=== PATIENT | female | born 1980 | race Caucasian/White ===

== ENCOUNTER 2018-07-17 20:40 | Emergency (ER) | payer OTHER ==
[~2018-07-17] VITALS: Ht 160 cm; Wt 90.7 kg
[~2018-07-17 20:40] MED LIST: ALBU17AE23 IH; ALPR.25T PO; ALPR.5T; ALPR.5T PO; CEPH500C; CITA40TA19; CITA40TA19 PO; DOXY100T61 PO; DULO60CA6; PRD20T PO; SIMV40TA2 PO; THIO2CAP; THIO5CAP; TRAZ50CO; TRAZADONE PO; ZPR80C; [UNRECOGNIZED DRUG - CODE] PO
--- OUTSIDE RECORDS SUMMARY | 2018-07-17 20:46 | XMS REPORT ---
Author Author [facility] Medical Staff Organization [place] [employer] [facility] Address [address] [place], [place] [address] Phone [phone] Care Team Providers Care Consulting Sales Manager Name Role Phone FARHAD SETHI MD PP [phone] Summary purpose TRANSITION OF CARE AUTO GENERATION Chief Complaint and Reason for Visit No authorized Reason for Visit (Admitting Diagnosis) is available for this visit. Problem list No authorized problems tracked for continuity of care are available for this visit. Encounters No authorized problems tracked for encounter diagnoses are available for this visit. Medications No home medications recorded for this patient visit Allergies, adverse reactions, alerts Allergen Category Ingredient Status Reaction Severity Onset Haldol Drug Allergy Haldol Confirmed or Verified Haldol Drug Allergy haloperidol Confirmed or Verified latex Environmental Allergy LATEX Confirmed or Verified latex Drug Allergy latex Confirmed or Verified Penicillins Drug Allergy Penicillins Confirmed or Verified Immunizations No immunizations recorded for this patient visit Relevant diagnostic tests and/or laboratory data No authorized results are available for this patient visit History of procedures No procedures recorded for this patient visit. Functional status Functional Status Finding Observation Time Abdomen Appearance obese 06-00-639240:40 Abdomen non-tender :40 Bowel Sounds present :40 Urination normal 74-68-675154:40 Quality sym/unlabored :40 Airway natural :40 Oxygen no :45 Temp >100.4 no :40 Temp <96.8 no :40 Chills with rigors no :40 HR > 90bpm no :40 Respirations > 20 no :40 Systolic <90 no :40 headache stiff neck no :40 Nursing Note D/C instructions to pt. Understanding verbalized. 04-91-804301 :45 Vital signs Type Value Date Respiration Rate 16breaths per minute :45 Pulse 85beats per minute :45 Oxygen Saturation 100% :45 BP Systolic 130mmHg :45 BP Diastolic 68mmHg :45 Temperature 97.9F :45 Social history Type Value Smoking Status CURRENT EVERY DAY SMOKER Treatment Plan No treatment plan text is available for this visit. Hospital discharge instructions Dismissal Condition good Disposition on DC home DC Inst/Educ Give yes Flu Vac no
--- OUTSIDE RECORDS SUMMARY | 2018-07-17 20:46 | XMS REPORT ---
Author Author [facility] Medical Staff Organization [facility] Address [address] [place], [place] [address] Phone [phone] Care Team Providers Care Core Placer Name Role Phone FARHAD SETHI MD PP [phone] Summary purpose TRANSITION OF CARE AUTO GENERATION Chief Complaint and Reason for Visit No authorized Reason for Visit (Admitting Diagnosis) is available for this visit. Problem list No authorized problems tracked for continuity of care are available for this visit. Encounters No authorized problems tracked for encounter diagnoses are available for this visit. Medications No medications recorded for this patient visit Allergies, [...] visit Relevant diagnostic tests and/or laboratory data RESULTS Routine Urinalysis :20:00 Result Normal Range Units Color YELLOW Clarity Clear Specific [place] 1.003 Refractometer Result pH 6.5 4.5-8.0 Glucose NEGATIVE Bilirubin NEGATIVE Ketones NEGATIVE Protein NEGATIVE Urobilinogen 0.2 0-0.2 E.U./dL Nitrites NEGATIVE Blood NEGATIVE Leukocytes NEGATIVE WBCs 0-5 RBCs No RBC's Seen. Squamous Epithelial 1+ Bacteria 1+ Body Fluid :20:00 Result Normal Range Units pH 6.5 4.5-8.0 History of procedures No procedures recorded for this patient visit. Functional status Functional Status Finding Observation Time Abdomen Appearance obese 84-72-814176:20 Abdomen soft 00-59-816200:20 Bowel Sounds present 53-97-767721:20 Henson no 64-04-998049:20 Urination normal 25-60-396714:20 Quality sym/unlabored 82-67-347909:20 Cough absent 68-57-382143:20 Secretions no :20 Breath Sounds RUL clear :20 Breath Sounds RML clear :20 Breath Sounds RLL clear :20 Breath Sounds DAVIDA clear :20 Breath Sounds LLL clear :20 Airway natural :20 Chest Tube no :20 Oxygen no :30 Temp >100.4 no :20 Temp <96.8 no :20 Chills with rigors no : HR > 90bpm yes :20 Respirations > 20 no : Systolic <90 no : headache stiff neck no :20 Nursing Note DC inst given to pt with Rx for Minocycline. Verb understanding and pt amb off unit in stable condition. : Vital signs Type Value Date Respiration Rate 18breaths per minute : Pulse 96beats per minute :30 Oxygen Saturation 99% :30 BP Systolic 124mmHg :30 BP Diastolic 75mmHg :30 Temperature 98.1F :30 Social history No Social History or smoking status observations were recorded for this visit. ( Unknown if ever smoked.) Treatment Plan No treatment plan text is available for this visit. Hospital discharge instructions Dismissal Condition good Disposition on DC home DC Inst/Educ Give yes Med/Side Effects Rev yes PNE Vac None Flu Vac None Tetanus Vac Current
--- OUTSIDE RECORDS SUMMARY | 2018-07-17 20:46 | XMS REPORT ---
Author [facility] Medical [facility] Organization [facility] Address [address] [place], [place] [address] Phone [phone] Care Team Providers Care Head Char Filter Tank Tender Name Role Phone FARHAD SETHI MD PP [phone] Summary purpose TRANSITION OF CARE AUTO GENERATION [...] Relevant diagnostic tests and/or laboratory data RESULTS Chemistry 51-89-433464:47:00 Result Normal Range Units Sodium 141 134-145 mEq/l Potassium 3.9 3.5-5.1 mEq/l Chloride 103 98-107 mEq/l CO2 27.7 22-28 mEq/l Glucose 89 70-105 mg/dl BUN 7 7-18 mg/dl Creatinine 0.79 0.6-1.0 mg/dl Calcium 8.9 8.4-10.2 mg/dl TP - Total Protein 7.3 6.0-8.3 g/dl Albumin 3.8 3.5-5 g/dl Bilirubin - Total 0.4 0.1-1.0 mg/dl AST 13 10-42 IU/L ALT 23 12-65 IU/L ALP 63 25-72 IU/L Osmolality L 278.7 280-300 mOsm/L Albumin/Globulin Ratio 1.1 0-8 Anion GAP 10.3 8-16 BUN/Creatinine Ratio L 8.9 10-20 Estimated GFR 84 >=60 mL/min/1.7 C-Reactive Protein < 0.2 0-1 mg/dl Hematology :47:00 Result Normal Range Units WBC H 11.0 4.8-10.8 103/uL RBC 5.2 4.2-5.4 106/uL HGB 15.6 12.0-16.0 g/dl HCT 45.3 36.9-47.0 % MCV 87.5 81-99 FL MCH 30.1 27-31 pg MCHC 34.4 33-37 g/dl RDW 13.3 11.5-15.5 % PLT 334 130-400 103/uL MPV 9.0 7.3-10.4 FL Neutro % 52.5 40-70 % Lymph % 39.3 20-40 % [place] % 6.6 0-10.0 % Eos % 1.2 0-7.0 % Baso % 0.4 0-2 % Neutro # 5.8 1.5-7.5 103/uL Lymph # H 4.3 0.9-4.0 103/uL [place] # 0.7 0-0.8 103/uL Eos # 0.1 0-0.6 103/uL Baso # 0.0 0-0.1 103/uL Radiology Results :47:00 Result Normal Range Units MPV 9.0 7.3-10.4 FL History of procedures No procedures recorded for this patient visit. Functional status Functional Status Finding Observation Time Diet regular 78-82-316304:15 Abdomen Appearance obese 77-20-565538:15 Abdomen non-tender 75-80-031169:15 Bowel Sounds present 90-29-476354:15 Henson no 63-83-852998:15 Urination normal 38-92-324093:15 Quality sym/unlabored 26-77-285191:15 Cough absent 16-47-791946:15 Breath Sounds RUL clear 81-00-346810:15 Breath Sounds RML clear 31-13-596337:15 Breath Sounds RLL clear 11-96-830094:15 Breath Sounds DAVIDA clear 07-72-461318:15 Breath Sounds LLL clear 92-20-394863:15 Airway natural 00-92-413986:15 Chest Tube no 19-29-996015:15 Oxygen yes 81-31-132539:00 Nursing Note Ready for home. No vomiting, no distress, no changes in condition : Vital signs Type Value Date Respiration Rate 18breaths per minute : Pulse 88beats per minute : Oxygen Saturation 98% : BP Systolic 122mmHg : BP Diastolic 68mmHg : Temperature 97.9F : Weight 205LB : Social history Type Value Smoking Status CURRENT EVERY DAY SMOKER Treatment Plan No treatment plan text is available for this visit. Hospital discharge instructions Dismissal Condition good Disposition on DC home DC Inst/Educ Give yes PNE Vac None Flu Vac None Tetanus Vac Current
--- OUTSIDE RECORDS SUMMARY | 2018-07-17 20:46 | XMS REPORT ---
Author Author [facility] Medical Staff Organization [facility] [employer] [facility] Address [address] [place], [place] [address] Phone [phone] Care Team Providers Care Crew Person Name Role Phone FARHAD SETHI MD PP [phone] Summary purpose TRANSITION OF CARE AUTO GENERATION Chief Complaint and Reason for Visit Admit Diagnosis 1 PANIC DIS W/O AGORAPHOB Problem list No authorized problems tracked for [...] for this patient visit History of procedures Procedure Code Code Type Description Date Performed Performing Physician A9270 CPT-4 NON-COVERED ITEM OR SERVICE 09-23-2014 JOHN NORMAN 00960 CPT-4 EMERGENCY DEPT VISIT 09-23-2014 JOHN NORMAN 72105 CPT-4 EMERGENCY DEPT VISIT 09-23-2014 JOHN NORMAN Functional status Functional Status Finding Observation Time Abdomen Appearance obese :00 Bowel Sounds present :00 Henson no :00 Urination normal :00 Quality sym/unlabored :00 Cough absent : Secretions no :00 Breath Sounds RUL clear :00 Breath Sounds RML clear :00 Breath Sounds RLL clear :00 Breath Sounds DAVIDA clear :00 Breath Sounds LLL clear :00 Airway natural :00 Chest Tube no :00 Oxygen no :50 Temp >100.4 no : Temp <96.8 no :00 Chills with rigors no : HR > 90bpm no :00 Respirations > 20 no : Systolic <90 no : headache stiff neck no : Nursing Note Pt was given xanx .5 mg po and Pt was also sent home with .5 mg po and was sent home with .5 at this time :50 Vital signs Type Value Date Respiration Rate 18breaths per minute :50 Pulse 78beats per minute :50 Oxygen Saturation 99% :50 BP Systolic 128mmHg :50 BP Diastolic 70mmHg :50 Temperature 98.8F :40 Height 63inches :40 Weight 204LB 00-46-169936:40 Social history Type Value Smoking Status CURRENT EVERY DAY SMOKER Treatment Plan No treatment plan text is available for this visit. Hospital discharge instructions Dismissal Condition good Disposition on DC home DC Inst/Educ Give yes Med/Side Effects Rev yes Comment: xanax PNE Vac None Flu Vac None Tetanus Vac Current
--- OUTSIDE RECORDS SUMMARY | 2018-07-17 20:47 | XMS REPORT ---
Author Author [email or web address] Medical Staff Organization [place] [employer] [facility] Address [address] [place], [place] [address] Phone [phone] Care Team Providers Care Adventure Therapist Name Role Phone FARHAD VALDEZ MD PP [phone] Summary purpose TRANSITION OF CARE AUTO GENERATION Chief Complaint and Reason for Visit Admit Diagnosis 1 SWELLING OF LIMB Problem list No authorized problems tracked for [...] Relevant diagnostic tests and/or laboratory data RESULTS Radiology Results 10-23-730368:07:00 DUP NEO UNILATERAL PACs Image DATE OF EXAM: 2014 [id number] VENOUS DUPLEX-UNILATERAL : RADIOLOGY REPORT DATE OF SERVICE:07/07/14 HISTORY:Right upper extremity pain and swelling. RIGHT UPPER EXTREMITY VENOUS DOPPLER 1424 HOURS The upper extremity veins were evaluated with high-resolution real time imaging, pulsed and color flow Doppler. Normal spontaneous phasic flow is evident in the right internal jugular, subclavian, axillary, brachial, radial and ulnar veins. All venous segments are fully compressible. No thrombi are noted. There is normal augmentation of flow with distal compression. IMPRESSION:Normal right upper extremity venous Doppler. Richi Dixon MD MWDg/pb07/07/2014 17:40:00 / 07/07/2014 21:48:35 cc:Dr. Farhad Valdez This document has been electronically Signed by: On: DATE OF EXAM: 2014 [id number] VENOUS DUPLEX-UNILATERAL : RADIOLOGY REPORT DATE OF SERVICE:07/07/14 HISTORY:Right upper extremity pain and swelling. RIGHT UPPER EXTREMITY VENOUS DOPPLER 1424 HOURS The upper extremity veins were evaluated with high-resolution real time imaging, pulsed and color flow Doppler. Normal spontaneous phasic flow is evident in the right internal jugular, subclavian, axillary, brachial, radial and ulnar veins. All venous segments are fully compressible. No thrombi are noted. There is normal augmentation of flow with distal compression. IMPRESSION:Normal right upper extremity venous Doppler. MD LEONARDO Logan/jayce07/07/2014 17:40:00 / 07/07/2014 21:48:35 cc:Dr. Farhad Valdez This document has been electronically Signed by: RICHI DIXON On: 2014 12:07P Result Amended on 2014-07-08 at 12:07:29. Previous status was NE. History of procedures Procedure Code Code Type Description Date Performed Performing Physician 46829 CPT-4 EXTREMITY STUDY 07-07-2014 LY ESCALONA A9270 CPT-4 NON-COVERED ITEM OR SERVICE 07-07-2014 LY ESCALONA 82506 CPT-4 EMERGENCY DEPT VISIT 07-07-2014 LY ESCALONA 72810 CPT-4 EMERGENCY DEPT VISIT 07-07-2014 LY ESCALONA Functional status Functional Status Finding Observation Time Abdomen Appearance obese 91-49-679553:40 Abdomen non-tender 20-49-347632:40 Bowel Sounds present 31-09-693923:40 Urination normal 94-34-254679:40 Quality sym/unlabored 95-50-734078:40 Airway natural 01-42-517960:40 Oxygen no :45 Temp >100.4 no :40 Temp <96.8 no :40 Chills with rigors no :40 HR > 90bpm no 21-00-535688:40 Respirations > 20 no :40 Systolic <90 no :40 headache stiff neck no :40 Nursing Note D/C instructions to pt. Understanding verbalized. :45 Vital signs Type Value Date Respiration Rate 16breaths per minute 54-43-259501:45 Pulse 85beats per minute :45 Oxygen Saturation 100% 53-68-535580:45 BP Systolic 130mmHg :45 BP Diastolic 68mmHg :45 Temperature 97.9F :45 Social history Type Value Smoking Status CURRENT EVERY DAY SMOKER Treatment Plan No treatment plan text is available for this visit. Hospital discharge instructions Dismissal Condition good Disposition on DC home DC Inst/Educ Give yes Flu Vac no
--- OUTSIDE RECORDS SUMMARY | 2018-07-17 20:47 | XMS REPORT ---
Author Author [facility] Medical Staff Organization [facility] Address [address] [place], [place] [address] Phone [phone] Care Team Providers Care State Historical Society Director Name Role Phone FARHAD SETHI MD PP [phone] Summary purpose TRANSITION OF CARE AUTO GENERATION Chief Complaint and Reason for Visit Admit Diagnosis 1 MYALGIA AND MYOSITIS NOS Problem list No authorized problems tracked for [...] Code Type Description Date Performed Performing Physician J1885 CPT-4 TORADOL SYR 30MG/ML 07-21-2014 JOHN ROSADO 95207 CPT-4 EMERGENCY DEPT VISIT 07-21-2014 JOHN ALONZO 83223 CPT-4 EMERGENCY DEPT VISIT 07-21-2014 JOHN ROSADO 57470 CPT-4 THER/PROPH/DIAG INJ, SC/IM 07-21-2014 JOHN ROSADO Functional status Functional Status Finding Observation Time Abdomen Appearance obese 97-54-479333:30 Abdomen non-tender 20-35-312865:30 Bowel Sounds present 67-78-600261:30 Henson no 96-16-488776:30 Urination normal 19-22-522924:30 Quality sym/unlabored 19-89-765579:30 Airway natural 02-19-581299:30 Chest Tube no 93-01-350058:30 Oxygen no 19-35-643008:35 Temp >100.4 no 84-68-051666:30 Temp <96.8 no : Chills with rigors no : HR > 90bpm no : Respirations > 20 no : Systolic <90 no : headache stiff neck no :30 Nursing Note Patient given instructions for home. Patient voiced understanding. Ambulated from unit with friend at side. :35 Vital signs Type Value Date Respiration Rate 20breaths per minute :35 Pulse 91beats per minute :35 Oxygen Saturation 96% :35 BP Systolic 134mmHg :35 BP Diastolic 84mmHg :35 Temperature 98.0F :35 Social history Type Value Smoking Status CURRENT EVERY DAY SMOKER Treatment Plan No treatment plan text is available for this visit. Hospital discharge instructions Dismissal Condition good Disposition on DC home DC Inst/Educ Give yes Med/Side Effects Rev yes Flu Vac no
--- OUTSIDE RECORDS SUMMARY | 2018-07-17 20:47 | XMS REPORT ---
Author Author [facility] [employer] [facility] Medical Staff Organization [facility] Address [address] [place], [place] [address] Phone [phone] Care Team Providers Care Vegetable Farmer Name Role Phone FARHAD SETHI MD PP [phone] Summary purpose TRANSITION OF CARE AUTO GENERATION [...] present :00 Henson no :00 Urination normal : Quality sym/unlabored : Cough absent :00 Secretions no :00 Breath Sounds RUL clear :00 Breath Sounds RML clear :00 Breath Sounds RLL clear :00 Breath Sounds DAVIDA clear :00 Breath Sounds LLL clear :00 Airway natural :00 Chest Tube no :00 Oxygen no :50 Temp >100.4 no :00 Temp <96.8 no :00 Chills with rigors no :00 HR > 90bpm no :00 Respirations > 20 no : Systolic <90 no :00 headache stiff neck no :00 Nursing Note Pt was given xanx .5 [...] 98.8F :40 Height 63inches :40 Weight 204LB 31-05-618068:40 Social history Type Value Smoking Status CURRENT EVERY DAY SMOKER Treatment Plan No treatment plan text is available for this visit. Hospital discharge instructions Dismissal Condition good Disposition on DC home DC Inst/Educ Give yes Med/Side Effects Rev yes Comment: xanax PNE Vac None Flu Vac None Tetanus Vac Current
--- OUTSIDE RECORDS SUMMARY | 2018-07-17 20:47 | XMS REPORT ---
Author [facility] [employer] [facility] Medical Staff Organization [facility] [email or web address] [facility] Address [address] [place], [place] [address] Phone [phone] Care Team Providers Care School Admissions Representative Name Role Phone FARHAD SETHI MD PP [phone] Summary purpose TRANSITION OF CARE AUTO GENERATION Chief Complaint and Reason for Visit Admit Diagnosis 1 ABDOMINAL PAIN RT LW PARKER Problem list No authorized problems tracked for [...] tests and/or laboratory data RESULTS Routine Urinalysis 99-53-060939:20:00 Result Normal Range Units Color YELLOW Clarity Clear Specific [place] 1.003 Refractometer Result pH 6.5 4.5-8.0 Glucose NEGATIVE Bilirubin NEGATIVE Ketones NEGATIVE Protein NEGATIVE Urobilinogen 0.2 0-0.2 E.U./dL Nitrites NEGATIVE Blood NEGATIVE Leukocytes NEGATIVE WBCs 0-5 RBCs No RBC's Seen. Squamous Epithelial 1+ Bacteria 1+ Body Fluid 78-43-082345:20:00 Result Normal Range Units pH 6.5 4.5-8.0 History of procedures Procedure Code Code Type Description Date Performed Performing Physician 51428 CPT-4 URINALYSIS, AUTO W/SCOPE 09-06-2014 SAUL EPSTEIN 17368 CPT-4 URINE TEST 09-06-2014 SAUL EPSTEIN 51903 CPT-4 EMERGENCY DEPT VISIT 09-06-2014 SAUL EPSTEIN 62794 CPT-4 EMERGENCY DEPT VISIT 09-06-2014 SAUL EPSTEIN Functional status Functional Status Finding Observation Time Abdomen Appearance obese 27-50-624817:20 Abdomen soft :20 Bowel Sounds present :20 Henson no :20 Urination normal :20 Quality sym/unlabored :20 Cough absent :20 Secretions no :20 Breath Sounds RUL clear :20 Breath Sounds RML clear :20 Breath Sounds RLL clear :20 Breath Sounds DAVIDA clear :20 Breath Sounds LLL clear 15-92-085055:20 Airway natural :20 Chest Tube no :20 Oxygen no :30 Temp >100.4 no :20 Temp <96.8 no :20 Chills with rigors no :20 HR > 90bpm yes :20 Respirations > 20 no :20 Systolic <90 no :20 headache stiff neck no :20 Nursing Note DC inst given to pt with Rx for Minocycline. Verb understanding and pt amb off unit in stable condition. : Vital signs Type Value Date Respiration Rate 18breaths per minute :30 Pulse 96beats per minute :30 Oxygen Saturation 99% :30 BP Systolic 124mmHg :30 BP Diastolic 75mmHg 17-63-684704:30 Temperature 98.1F :30 Social history No Social [...]
--- OUTSIDE RECORDS SUMMARY | 2018-07-17 20:47 | XMS REPORT ---
Author Author [facility] Medical Staff Organization [facility] Address [address] [place], [place] [address] Phone [phone] Care Team Providers Care Digital Tech Name Role Phone FARHAD SETHI MD PP [phone] Summary purpose TRANSITION OF CARE AUTO GENERATION Chief Complaint and Reason for Visit No authorized Reason for Visit (Admitting Diagnosis) is available for this visit. Problem list No authorized problems tracked for continuity of care are available for this visit. Encounters No authorized problems tracked for encounter diagnoses are available for this visit. Medications Home Medications Medication Directions Started Status Source Celexa 40 mg tablet 2 tablet Oral At Bed Time Current Patient recall trazodone 100 mg tablet 2 tablet Oral At Bed Time Current Patient recall Zocor 40 mg tablet 1 tablet Oral At Bed Time Current Patient recall Lasix 20 mg tablet 1 tablet oral As Needed Current Patient medication list K-Dur 20 mEq tablet,extended release 1 tablet oral As Needed Current Patient medication list melatonin 5 mg tablet 1 tablet oral 1 Daily Current Patient medication list Flonase 50 mcg/actuation nasal spray,suspension 2 puff nasl 1 Daily Current Patient recall tramadol 50 mg tablet 1 tablet oral PRN Every 6 Hours Current Patient medication list magnesium citrate oral 2 tablet oral At Bed Time 250mg Current Patient medication list Super B Complex tablet 1 tablet oral 1 Daily Current Medication bottle label Allergies, adverse reactions, alerts Allergen Category Ingredient [...] Functional status Functional Status Finding Observation Time Oxygen no 44-68-245771:14 Nursing Note pt to er room 7, triage complete, report to dr galvan 07-21-2014 20:14 Vital signs Type Value Date Respiration Rate 20breaths per minute :14 Pulse 100beats per minute :14 Oxygen Saturation 94% :14 BP Systolic 159mmHg :14 BP Diastolic 86mmHg :14 Temperature 98.2F :14 Social history Type Value Smoking Status CURRENT EVERY DAY SMOKER Treatment Plan No treatment plan text is available for this visit. Hospital discharge instructions Flu Vac no
--- OUTSIDE RECORDS SUMMARY | 2018-07-17 20:48 | XMS REPORT | Clinical Summary ---
Author Author Admin, ARIAN Organization [facility] Address Unknown Phone Unavailable Allergies, Adverse Reactions, Alerts Allergy Name Reaction Description Start Date Severity Status Provider LATEX GLOVES Critical Active Ian Valdez MD HALDOL Critical Active Ian Valdez MD PENICILLIN Critical Active Ian Valdez MD Conditions or Problems Problem Name Problem Code Onset Date Status Entry Date Provider Comment Standard Description Annotate SINUSITIS 473.9 Resolved Ian Valdez MD Unspecified sinusitis (chronic) SCABIES 133.0 Resolved Ian Valdez MD Scabies MEMORY LOSS 780.93 Resolved Ian Valdez MD Memory loss FAMILY HISTORY OF ALCOHOLISM V61.41 Resolved Ian Valdez MD Alcoholism in family FH DIABETES V18.0 Resolved Ian Valdez MD Family history of diabetes mellitus DIABETES-TYPE 2 250.00 Active Ian Valdez MD Diabetes mellitus without mention of complication, type II or unspecified type, not stated as uncontrolled HYPERLIPIDEMIA 272.4 Active Ian Valdez MD Other and unspecified hyperlipidemia BIPOLAR DISORDER 296.7 Active Ian Valdez MD Bipolar I disorder, most recent episode (or current) unspecified MEMORY LOSS 780.93 Resolved Ian Valdez MD Memory loss ROUTINE HEALTH MAINTENANCE V70.0 Resolved Thom Gilbert MD Routine general medical examination at a health care facility FAMILY HISTORY OF ISCHEMIC HEART DISEASE V17.3 Resolved Ian Valdez MD Family history of ischemic heart disease EUSTACHIAN TUBE DYSFUNCTION 381.81 Resolved Ian Valedz MD Dysfunction of Eustachian tube SINUSITIS 473.9 Resolved Thom Gilbert MD Unspecified sinusitis (chronic) CONTACT DERMATITIS DUE TO POISON CARINE 692.6 Resolved Ian Valdez MD Contact dermatitis and other eczema due to plants [ except food] CONTRACEPTIVE MANAGEMENT V25.09 Inactive Thom Gilbert MD Encounter for other general counseling and advice on contraceptive management EUSTACHIAN TUBE DYSFUNCTION 381.81 Resolved Ian Valdez MD Dysfunction of Eustachian tube TOBACCO ABUSE 305.1 Active Ian Valdez MD Tobacco use disorder ASTHMA NOS W/ACUTE EXACERBATION 493.92 Resolved Thom Gilbert MD Asthma, unspecified with (acute) exacerbation ACUTE BRONCHITIS 466.0 Resolved Ian Valdez MD Acute bronchitis LATERAL EPICONDYLITIS, RIGHT 726.32 Resolved Ian Valdez MD Lateral epicondylitis IRREGULAR MENSES 626.4 Resolved Ian Valdez MD Irregular menstrual cycle ABDOMINAL CRAMPS 789.00 Resolved Ian Valdez MD Abdominal pain, unspecified site BRONCHITIS, ACUTE 466.0 Resolved Ian Valdez MD Acute bronchitis SHOULDER PAIN, RIGHT 719.41 Resolved Ian Valdez MD Pain in joint involving shoulder region PERIPHERAL EDEMA 782.3 Resolved Ian Valdez MD Edema F/U EXAM FOLLOW CMPL TX W/HIGH-RISK MED NEC V67.51 Resolved 2012 Ian Valdez MD Follow-up examination following treatment with high-risk medication, not elsewhere classified LONG-TERM (CURRENT) USE OF OTHER MEDICATIONS V58.69 Active 10/26 Ian Valdez MD Long-term (current) use of other medications ANXIETY 300.00 Active Ian Valdez MD Anxiety state, unspecified KNEE PAIN, RIGHT, CHRONIC 719.46 Inactive Thom Gilbert MD Pain in joint involving lower leg Ankle sprain, left 845.00 Resolved Ian Valdez MD Unspecified site of ankle sprain Peripheral edema 782.3 Resolved Thom Gilbert MD Edema Chronic pain 338.29 Inactive Thom Gilbert MD Other chronic pain Myofascial pain syndrome 729.1 Active Ian Valdez MD Myalgia and myositis, unspecified Polycystic ovarian disease 256.4 Active Ian Valdez MD Polycystic ovaries Unspecified procreative management V26.9 Inactive Thom Gilbert MD Unspecified procreative management Tinea cruris 110.3 Resolved Thom Gilbert MD Dermatophytosis of groin and perianal area FH Stroke V17.1 Active Thom Gilbert MD Family history of stroke (cerebrovascular) Breast mass, right 611.72 Resolved Thom Gilbert MD Lump or mass in breast Wound infection 958.3 Resolved Thom Gilbert MD Posttraumatic wound infection not elsewhere classified Dysphagia 787.20 Resolved Thom Gilbert MD Dysphagia, unspecified Neck pain 723.1 Resolved Thom Gilbert MD Cervicalgia Sinusitis, frontal, acute 461.1 Resolved Thom Gilbert MD Acute frontal sinusitis Breast mass 611.72 Resolved Thom Gilbert MD Lump or mass in breast Influenza like illness 487.1 Resolved Thom Gilbert MD Influenza with other respiratory manifestations Depression, major 296.20 Active Susana Elder Major depressive disorder, single episode, unspecified degree Fibrocystic breast disease 610.1 Active Thom Gilbert MD Diffuse cystic mastopathy Lateral epicondylitis, right 726.32 Active Ian Valdez MD Lateral epicondylitis Fibromyalgia 729.1 Active Ian Valdez MD Myalgia and myositis, unspecified Health screening V70.0 Active Herminia Bear Routine general medical examination at a health care facility SINUSITIS ICD-473.9 Inactive Ian Valdez MD SCABIES ICD-133.0 Inactive Ian Valdez MD 2012 MEMORY LOSS ICD-780.93 Inactive Ian Valdez MD FAMILY HISTORY OF ALCOHOLISM ICD-V61.41 Inactive Ian Valdez MD FH DIABETES ICD-V18.0 Inactive Ian Valdez MD MEMORY LOSS ICD-780.93 Inactive Ian Valdez MD ROUTINE HEALTH MAINTENANCE ICD-V70.0 Inactive Thom Gilbert MD FAMILY HISTORY OF ISCHEMIC HEART DISEASE ICD-V17.3 Inactive Ian Valdez MD EUSTACHIAN TUBE DYSFUNCTION ICD-381.81 Inactive Ian Valdez MD SINUSITIS ICD-473.9 Inactive Thom Gilbert MD CONTACT DERMATITIS DUE TO POISON CARINE ICD-692.6 Inactive Ian Valdez MD CONTRACEPTIVE MANAGEMENT ICD-V25.09 Inactive Thom Gilbert MD EUSTACHIAN TUBE DYSFUNCTION ICD-381.81 Inactive Ian Valdez MD ASTHMA NOS W/ACUTE EXACERBATION ICD-493.92 Inactive Thom Gilbert MD ACUTE BRONCHITIS ICD-466.0 Inactive Ian Valdez MD LATERAL EPICONDYLITIS, RIGHT ICD-726.32 Inactive Ian Valdez MD IRREGULAR MENSES ICD-626.4 Inactive Ian Valdez MD ABDOMINAL CRAMPS ICD-789.00 Inactive Ian Valdez MD BRONCHITIS, ACUTE ICD-466.0 Inactive Ian Valdez MD SHOULDER PAIN, RIGHT ICD-719.41 Inactive Ian Valdez MD PERIPHERAL EDEMA ICD-782.3 Inactive Ian Valdez MD F/U EXAM FOLLOW CMPL TX W/HIGH-RISK MED NEC ICD-V67.51 Inactive Ian Valdez MD KNEE PAIN, RIGHT, CHRONIC ICD-719.46 Inactive Thom Gilbert MD Ankle sprain, left ICD-845.00 Inactive Ian Valdez MD Peripheral edema ICD-782.3 Inactive Thom Gilbert MD Chronic pain ICD-338.29 Inactive Thom Gilbert MD Unspecified procreative management ICD-V26.9 Inactive Thom Gilbert MD Tinea cruris ICD-110.3 Inactive Thom Gilbert MD Breast mass, right ICD-611.72 Inactive Thom Gilbert MD Wound infection ICD-958.3 Inactive Thom Gilbert MD Dysphagia ICD-787.20 Inactive Thom Gilbert MD Neck pain ICD-723.1 Inactive Thom Gilbert MD Sinusitis, frontal, acute ICD-461.1 Inactive Thom Gilbert MD Breast mass ICD-611.72 Inactive Thom Gilbert MD Influenza like illness ICD-487.1 Inactive Thom Gilbert MD Medication List Medication Instructions Start Date Stop Date Generic Name NDC Status Provider Patient Instruction DICLOFENAC SODIUM 50 MG ORAL TBEC TID PRN DICLOFENAC SODIUM 71315715376 Active Nataliya Lozada Active BUSPIRONE HCL 7.5 MG ORAL TABS 1 TAB PO BID PRN ANXIETY BUSPIRONE HCL 24321404118 Active Herminia Bear Active MEDROL (REBEKAH) 4 MG TABS 6 tabs on day 1, 5 tabs on day 2, 4 tabs on day 3, 3 tabs on day 4, 2 tabs on day 5, 1 tab on day 6 METHYLPREDNISOLONE 23317618661 No Longer Active Herminia Bear Active MELOXICAM 15 MG TABS 1 po q day for pain with food MELOXICAM 88592600493 Active Ian Valdez MD Active DOXYCYCLINE HYCLATE 100 MG CAP 1 cap by mouth twice daily DOXYCYCLINE HYCLATE 02722839441 No Longer Active Najma Vaughn APRN Active MULTIVITAMINS CAPS 1 tablet daily MULTIPLE VITAMIN 91133108223 Active Juan Smith MD Active CYCLOBENZAPRINE HCL 10 MG TABS 1/2 - 1 tab by mouth three times daily if needed for spasms/pain CYCLOBENZAPRINE HCL 04576398996 Active Ian Valdez MD Active GLUCOPHAGE 500 MG TABS 1 tab BID with morning and night meals METFORMIN HCL 00453990826 Active Eva Ferrara MD PhD Active PROGESTERONE MICRONIZED 100 MG CAPS 2 caps daily day 16 thru 25 of cycle 2013 PROGESTERONE MICRONIZED 79271207617 Active Eva Ferrara MD PhD Active TERBINAFINE HCL 1 % CREA Apply bid to rash TERBINAFINE HCL 55248337651 No Longer Active Eva Ferrara MD PhD Active TOPAMAX 25 MG TABS 1 tab po qhs x 1 week, then take 2 tabs po qhs TOPIRAMATE 62142677576 No Longer Active Thom Gilbert MD Active ULTRAM 50 MG TAB take 1 tab po q6hrs prn pain TRAMADOL HCL 19397736439 Active Ian Valdez MD Active LAMISIL AT 1 % CREA apply bid to rash TERBINAFINE HCL 04911402322 No Longer Active Thom Gilbert MD Active TERBINAFINE HCL 250 MG TABS 1 qDay TERBINAFINE HCL 83340290516 No Longer Active Ian Valdez MD Active XANAX 0.25 MG TABS take 1 tab po bid prn anxiety. ALPRAZOLAM 02555041840 No Longer Active Ian Valdez MD Active FISH OIL 1000 MG CAPS 2 caps PO once daily at bedtime OMEGA-3 FATTY ACIDS 22351621279 No Longer Active Ian Valdez MD Active KLOR-CON M20 20 MEQ CR-TABS take 1 tab po qday with lasix POTASSIUM CHLORIDE GALILEO CR 54791093566 Active Ian Valdez MD Active LASIX 20 MG TAB 1 tablet by mouth daily prn swelling FUROSEMIDE 41024120778 Active Ian Valdez MD Active FLONASE 50 MCG/ACT SUSP 2 puffs in each nostril once daily at bedtime FLUTICASONE PROPIONATE 67854345739 Active Ian Valdez MD Active [facility] MELATONIN 3 MG TABS 2 tabs PO at bedtime MELATONIN 35590677516 Active Ian Valdez MD Active PULMICORT FLEXHALER 180 MCG/ACT AEPB 2 INH BID BUDESONIDE 57425458515 No Longer Active Ian Valdez MD Active METFORMIN HCL 500 MG TB24 1 TAB PO Q HS METFORMIN HCL 64894560752 No Longer Active Ian Valdez MD Active CYCLOBENZAPRINE HCL 10 MG TABS 1 PO q 8 hrs PRN muscle spasm 2012 CYCLOBENZAPRINE HCL 78905020179 No Longer Active Ian Valdez MD Active AZITHROMYCIN 500 MG TABS 1 PO q day x 6 days AZITHROMYCIN 17880522991 No Longer Active Ian Valdez MD Active CIPRO 500 MG TAB 1 tablet by mouth twice daily CIPROFLOXACIN HCL 31970078586 No Longer Active Ian Vladez MD Active PREDNISONE 20 MG TABS 3 qd x 2d, 2 qd x 2d, 1 qd x 2d, 1/2 qd x 2d PREDNISONE 43040614268 No Longer Active Law FIGUEROA Active CELEXA 40 MG TABS 2 PO DAILY CITALOPRAM HYDROBROMIDE 81918500833 Active Ian Valdez MD Active OMEPRAZOLE 20 MG CPDR 1 tablet by mouth daily OMEPRAZOLE 84068221710 No Longer Active [place] FIGUEROA Active KLONOPIN 0.5 MG TABS 1 TABLET PO PRN CLONAZEPAM 97730989977 No Longer Active Wellington FIGUEROA Active MOBIC 7.5 MG TABS 1 tablet by mouthonce a day MELOXICAM 08361713239 No Longer Active [place] FIGUEROA Active ZITHROMAX 1 GM PACK DIRECTED AZITHROMYCIN 57474708639 No Longer Active Ian Valdez MD Active ALBUTEROL SULFATE 0.083 % NEBU SOLN one vial per nebulizer every 4-6 hours as needed ALBUTEROL SULFATE 33586728567 Active Ian Valdez MD Active CHANTIX STARTING MONTH REBEKAH 0.5 MG X 11 & 1 MG X 42 TABS 0.5mg daily for 3 days , then 0.5mg BID for 4 days, then 1mg BID VARENICLINE TARTRATE 77857889075 No Longer Active Ian Valdez MD Active ZITHROMAX 1 GM PACK DIRECTED AZITHROMYCIN 65079762728 No Longer Active Ian Valdez MD Active AURALGAN 1.4-5.5 % SOLN BENZOCAINE-ANTIPYRINE 63617682566 No Longer Active Ian Valdez MD Active PREDNISONE 20 MG TAB 3 tabs daily for 3 days, 2 tab daily for 3 days, 1 tab daily for 2 days, then 1/2 tab dialy for 2 days PREDNISONE 41338738362 No Longer Active Ian Valdez MD Active SIMVASTATIN 40 MG TABS 1 TABLET PO Q HS SIMVASTATIN 26501757550 Active Ian Valdez MD Active SIMVASTATIN 80 MG TABS Take one by mouth daily SIMVASTATIN 07343320123 No Longer Active Ian Valdez MD Active PREDNISONE 20 MG TAB 2 tabs daily for 3 days, 1 tab daily for 3 days, 1/2 tab daily for 2 days PREDNISONE 62732926523 No Longer Active Ian Valdez MD Active ZITHROMAX 250 MG TAB 2 po today, then 1 po q days 2-5 AZITHROMYCIN 89551570958 No Longer Active Ian Valdez MD Active TRAZODONE HCL 100 MG TABS 2 TABS PO Q HS TRAZODONE HCL 80699176354 Active Ian Valdez MD Active ZITHROMAX 250 MG TAB 2 po today, then 1 po q days 2-5 AZITHROMYCIN 47089693861 No Longer Active Ian Valdez MD Active SIMVASTATIN 80 MG TABS Take one by mouth daily SIMVASTATIN 80 MG TABS 346516 SIMVASTATIN Inactive AURALGAN 1.4-5.5 % SOLN AURALGAN 1.4-5.5 % SOLN BENZOCAINE-ANTIPYRINE Inactive ZITHROMAX 1 GM PACK DIRECTED ZITHROMAX 1 GM PACK 514117 AZITHROMYCIN Inactive CHANTIX STARTING MONTH REBEKAH 0.5 MG X 11 & 1 MG X 42 TABS 0.5mg daily for 3 days , then 0.5mg BID for 4 days, then 1mg BID CHANTIX STARTING MONTH REBEKAH 0.5 MG X 11 & 1 MG X 42 TABS VARENICLINE TARTRATE Inactive ZITHROMAX 1 GM PACK DIRECTED ZITHROMAX 1 GM PACK 194545 AZITHROMYCIN Inactive MOBIC 7.5 MG TABS 1 tablet by mouthonce a day MOBIC 7.5 MG TABS 116666 MELOXICAM Inactive KLONOPIN 0.5 MG TABS 1 TABLET PO PRN KLONOPIN 0.5 MG TABS 679173 CLONAZEPAM Inactive CIPRO 500 MG TAB 1 tablet by mouth twice daily CIPRO 500 MG TAB 803074 CIPROFLOXACIN HCL Inactive AZITHROMYCIN 500 MG TABS 1 PO q day x 6 days AZITHROMYCIN 500 MG TABS 5748534 AZITHROMYCIN Inactive CYCLOBENZAPRINE HCL 10 MG TABS 1 PO q 8 hrs PRN muscle spasm 2012 CYCLOBENZAPRINE HCL 10 MG TABS 888417 CYCLOBENZAPRINE HCL Inactive METFORMIN HCL 500 MG TB24 1 TAB PO Q HS METFORMIN HCL 500 MG TB24 METFORMIN HCL Inactive PULMICORT FLEXHALER 180 MCG/ACT AEPB 2 INH BID PULMICORT FLEXHALER 180 MCG/ACT AEPB BUDESONIDE Inactive FISH OIL 1000 MG CAPS 2 caps PO once daily at bedtime FISH OIL 1000 MG CAPS OMEGA-3 FATTY ACIDS Inactive XANAX 0.25 MG TABS take 1 tab po bid prn anxiety. XANAX 0.25 MG TABS 649598 ALPRAZOLAM Inactive LAMISIL AT 1 % CREA apply bid to rash LAMISIL AT 1 % CREA 219422 TERBINAFINE HCL Inactive TOPAMAX 25 MG TABS 1 tab po qhs x 1 week, then take 2 tabs po qhs TOPAMAX 25 MG TABS 171825 TOPIRAMATE Inactive TERBINAFINE HCL 1 % CREA Apply bid to rash TERBINAFINE HCL 1 % CREA 172399 TERBINAFINE HCL Inactive ZITHROMAX 250 MG TAB 2 po today, then 1 po q days 2-5 ZITHROMAX 250 MG TAB 1004017 AZITHROMYCIN Inactive ZITHROMAX 250 MG TAB 2 po today, then 1 po q days 2-5 ZITHROMAX 250 MG TAB 3508425 AZITHROMYCIN Inactive PREDNISONE 20 MG TAB 2 tabs daily for 3 days, 1 tab daily for 3 days, 1/2 tab daily for 2 days PREDNISONE 20 MG TAB 035131 PREDNISONE Inactive PREDNISONE 20 MG TAB 3 tabs daily for 3 days, 2 tab daily for 3 days, 1 tab daily for 2 days, then 1/2 tab dialy for 2 days PREDNISONE 20 MG TAB 614638 PREDNISONE Inactive OMEPRAZOLE 20 MG CPDR 1 tablet by mouth daily OMEPRAZOLE 20 MG CPDR 566965 OMEPRAZOLE Inactive PREDNISONE 20 MG TABS 3 qd x 2d, 2 qd x 2d, 1 qd x 2d, 1/2 qd x 2d PREDNISONE 20 MG TABS 055659 PREDNISONE Inactive TERBINAFINE HCL 250 MG TABS 1 qDay TERBINAFINE HCL 250 MG TABS 576537 TERBINAFINE HCL Inactive DOXYCYCLINE HYCLATE 100 MG CAP 1 cap by mouth twice daily DOXYCYCLINE HYCLATE 100 MG CAP 508977 DOXYCYCLINE HYCLATE Inactive MEDROL (REBEKAH) 4 MG TABS 6 tabs on day 1, 5 tabs on day 2, 4 tabs on day 3, 3 tabs on day 4, 2 tabs on day 5, 1 tab on day 6 MEDROL ( REBEKAH) 4 MG TABS METHYLPREDNISOLONE Inactive Advance Directives Directive Description Start Date NO HEROIC MEASURES Immunizations Vaccine Administration Date Value Standard Description Boostrix (Tetanus toxoid, reduced diphtheria toxoid and acellular pertussis vaccine, adsorbed), booster Boostrix [[id number]] tetanus toxoid, reduced diphtheria toxoid, and acellular pertussis vaccine, adsorbed Vital Signs Date Name Value Unit Range Description blood pressure, diastolic - 8462-4 85 mm[Hg] BP aguillon blood pressure, systolic - 8480-6 141 mm[Hg] BP sys pulse rate E&M - 8867-4 108 /min Heart rate temperature E&M 98.7 [degF] Body temperature weight E&M - 3141-9 212 [lb_av] Weight Measured blood pressure, diastolic - 8462-4 79 mm[Hg] BP aguillon blood pressure, systolic - 8480-6 136 mm[Hg] BP sys pulse rate E&M - 8867-4 101 /min Heart rate temperature E&M 98.1 [degF] Body temperature weight E&M - 3141-9 214.8 [lb_av] Weight Measured blood pressure, diastolic - 8462-4 87 mm[Hg] BP aguillon blood pressure, systolic - 8480-6 134 mm[Hg] BP sys pulse rate E&M - 8867-4 103 /min Heart rate temperature E&M 98. [degF] Body temperature weight E&M - 3141-9 213 [lb_av] Weight Measured blood pressure, diastolic - 8462-4 87 mm[Hg] BP aguillon blood pressure, systolic - 8480-6 152 mm[Hg] BP sys pulse rate E&M - 8867-4 108 /min Heart rate temperature E&M 99 [degF] Body temperature weight E&M - 3141-9 216 [lb_av] Weight Measured blood pressure, diastolic - 8462-4 86 mm[Hg] BP aguillon blood pressure, systolic - 8480-6 138 mm[Hg] BP sys pulse rate E&M - 8867-4 99 /min Heart rate temperature E&M 98.5 [degF] Body temperature weight E&M - 3141-9 216.4 [lb_av] Weight Measured blood pressure, diastolic - 8462-4 83 mm[Hg] BP aguillon blood pressure, systolic - 8480-6 135 mm[Hg] BP sys pulse rate E&M - 8867-4 97 /min Heart rate temperature E&M 98.4 [degF] Body temperature weight E&M - 3141-9 219 [lb_av] Weight Measured blood pressure, diastolic - 8462-4 87 mm[Hg] BP aguillon blood pressure, systolic - 8480-6 128 mm[Hg] BP sys pulse rate E&M - 8867-4 102 /min Heart rate temperature E&M 99.3 [degF] Body temperature weight E&M - 3141-9 215 [lb_av] Weight Measured blood pressure, diastolic - 8462-4 85 mm[Hg] BP aguillon blood pressure, systolic - 8480-6 143 mm[Hg] BP sys pulse rate E&M - 8867-4 98 /min Heart rate temperature E&M 98.6 [degF] Body temperature weight E&M - 3141-9 216 [lb_av] Weight Measured blood pressure, diastolic - 8462-4 86 mm[Hg] BP aguillon blood pressure, systolic - 8480-6 144 mm[Hg] BP sys pulse rate E&M - 8867-4 102 /min Heart rate temperature E&M 97.3 [degF] Body temperature weight E&M - 3141-9 218.4 [lb_av] Weight Measured Diagnostic Results Date Name Value Unit Range Description Lab Report: CBC - Hematology leukocyte count, blood 8.4 10^3/MM^3 10*3/mm3 4.6-10.2 erythrocyte (RBC) count 5.25 10^6/MM^3 10*6/mm3 4.04-5.48 hemoglobin, blood 16.7 g/dL 12.0-16.0 hematocrit, blood 47.7 % 36.0-46.0 mean corpuscular volume, RBC 91 fL 80-97 mean corpuscular hemoglobin, RBC 31.8 pg 27.0-31.2 mean corpuscular hemoglobin concentration, RBC 34.9 G/DL % 31.8- 35.4 red blood cell distribution width 14.5 % 11.6-14.8 platelet count 307 10^3/MM^3 10*3/mm3 142-424 Lab Report: HGBA1C, Free Thyroxine (L), Thyroid Stimulating Hormone (L), ... - Chemistry hemoglobin A1C, blood, as % of total hemoglobin 5.1 % 4.3-6.0 thyroxine, serum, free 1.02 ng/dL 0.76-1.46 TSH 1.44 m[iU]/mL 0.36-3.74 cholesterol, serum 144 mg/dL 334-894 5824/11/19 triglyceride, serum, fasting 172 mg/dL 30-200 HDL cholesterol, serum 30 mg/dL 32-96 LDL cholesterol, serum 80 mg/dL 0-130 sodium, serum 137 mmol/L 158-272 4689/11/19 potassium, serum 4.1 mmol/L 3.5-5.2 chloride, serum 100 mmol/L 98-107 carbon dioxide, venous blood 26.9 mmol/L 21.0-32.0 blood glucose 84 mg/dL 65-110 urea nitrogen, blood 11 mg/dL 7-18 creatinine, serum 0.90 mg/dL 0.60-1.30 alanine aminotransferase (SGPT), serum 23 U/L 12-78 aspartate aminotransferase (SGOT), serum 17 U/L 15-37 calcium, serum 9.5 mg/dL 8.5-10.1 bilirubin, serum, total 0.70 mg/dL 0.00-1.00 Lab Report: TONY INFLUENZA A/B - Toxicology rapid flu test Negative Negative;Positive Office Visit: wellness exam for insurance/ diabetes check - Chemistry cholesterol, target level 200 mg/dL LDL target level 100 mg/dL HDL cholesterol, serum, target level 40 mg/dL triglyceride, target level 150 mg/dL Encounters Code Encounter Date Provider Facility CPT-02043 Level 3 Est. Patient 20:15:16 CDT Ian Valdez MD [facility] CPT-25340 Level 3 Est. Patient 13:49:34 CDT Ian Valdez MD [facility] CPT-29558 Level 3 Est. Patient 15:50:27 REVENUE CYCLE MANAGER Najma Vaughn APRN [facility] CPT-65492 Level 4 Est. Patient 21:20:00 REVENUE CYCLE MANAGER Ian Valdez MD [facility] CPT-21589 Level 3 Est. Patient 15:32:41 REVENUE CYCLE MANAGER Juan Smith MD [facility]-38247 Level 3 Est. Patient 14:45:01 CDT Eva Ferrara MD PhD [facility]-05547 Level 3 Est. Patient 14:54:10 CDT Ian Valdez MD [facility]-48881 Level 4 Est. Patient 20:36:52 CDT Ian Valdez MD [facility]-29028 Level 4 Est. Patient 11:14:30 REVENUE CYCLE MANAGER Ian Valdez MD [facility]-16561 Level 3 Est. Patient 19:08:34 REVENUE CYCLE MANAGER Ian Valdez MD [facility]-06451 Level 3 Est. Patient 13:17:39 REVENUE CYCLE MANAGER Ian Valdez MD [facility] CPT-99350 Level 4 Est. Patient 18:56:10 CDT Ian Valdez MD [facility]-98183 Level 4 Est. Patient 16:55:56 CDT Ian Valdez MD [facility]-81869 Level 3 Est. Patient 11:27:07 CDT Ian Valdez MD [facility]-25324 Level 3 Est. Patient 15:17:44 CDT Law Rosas [facility] CPT-34520 Level 4 Est. Patient 15:13:53 CDT Wellington Muniz [facility]-11127 Level 3 Est. Patient 14:25:12 REVENUE CYCLE MANAGER Ian Valdez MD [facility]-52210 Level 3 Est. Patient 10:24:46 CDT Ian Valdez MD [facility] CPT-23570 Level 3 Est. Patient 15:34:19 CDT Ian Valdez MD [facility] CPT-55348 Level 3 Est. Patient 14:22:41 CDT Ian Valdez MD [facility] CPT-97540 Level 3 Est. Patient 15:07:22 REVENUE CYCLE MANAGER Ian Valdez MD [facility] CPT-50854 Level 3 New Patient 09:06:43 REVENUE CYCLE MANAGER Ian Valdez MD [facility] CPT-28736 Level 3 Est. Patient 15:09:00 REVENUE CYCLE MANAGER Ian Valdez MD [facility] Procedures Code Procedure Name Date Entry Date Standard Description CPT-OV Office Visit 16:24:22 CDT CPT-OV Office Visit 15:15:29 REVENUE CYCLE MANAGER CPT-OV Office Visit 15:49:26 REVENUE CYCLE MANAGER CPT-J1885 Toradol 60 mg (Ketorolac) 15:37:32 CDT CPT-10690 Abx/Therapy Injection 15:37:32 CDT CPT-J1885 Toradol 60 mg (Ketorolac) 14:45:01 CDT CPT-OV Office Visit 15:19:52 CDT CPT-OV Office Visit 10:41:01 CDT CPT-72044 Core biop breast wo imaging 16:50:06 CDT CPT-OV Office Visit 16:50:05 CDT CPT-55404 UHCG (floor use only) 13:39:36 CDT CPT-61777 Nexplanon Placement 10:11:48 CDT CPT-J7307 Nexplanon (Implant) 10:11:48 CDT CPT-OV Office Visit 09:54:18 CDT CPT-97182 EKG Trac and Interp 16:50:19 CDT CPT-92132 Venipuncture Draw Fee 15:06:08 CDT CPT-J2930 Solu Medrol 125 mg (Methyl Prednisolone Sodium Succinate) 12:44:46 CDT CPT-J1055 Depo Provera 150 mg (Medroxyprogesterone) 12:44:46 CDT CPT-22689 Abx/Therapy Injection 12:44:46 CDT CPT-J1055 Depo Provera 150 mg (Medroxyprogesterone) 14:28:41 CDT CPT-J2930 Solu Medrol 125 mg (Methyl Prednisolone Sodium Succinate) 14:22:41 CDT CPT-66946 Administration single or combination vaccine inc oral 10 :08:06 CDT CPT-07461 Tdap 10:08:06 CDT CPT-G0402 Wlcm To Medicare Ex 22:17:30 CDT CPT-53847 Venipuncture Draw Fee 10:33:07 REVENUE CYCLE MANAGER CPT-32193 Venipuncture Draw Fee 10:17:37 REVENUE CYCLE MANAGER CPT-G0403 EKG Wlc To Medicare 22:17:30 CDT
--- OUTSIDE RECORDS SUMMARY | 2018-07-17 20:49 | XMS REPORT | Clinical Summary ---
Author Author Admin, ARIAN Organization [facility] Address Unknown Phone Unavailable Allergies, Adverse Reactions, [...] disease EUSTACHIAN TUBE DYSFUNCTION 381.81 Resolved Ian Valdez MD Dysfunction of Eustachian tube SINUSITIS 473.9 [...] medical examination at a health care facility Constipation 564.00 Active Carlos Mccormack MD Constipation, unspecified SINUSITIS ICD-473.9 Inactive Ian Valdez MD SCABIES [...] Generic Name NDC Status Provider Patient Instruction MAGNESIUM CITRATE 1.745 GM/30ML ORAL SOLN 150ml po BID PRN Constipation 10/07 MAGNESIUM CITRATE 01978829907 Active Carlos Mccormack MD Active DICLOFENAC SODIUM 50 MG ORAL TBEC TID PRN DICLOFENAC SODIUM 68343722554 Active Nataliya Lozada Active BUSPIRONE HCL 7.5 MG ORAL TABS 1 TAB PO BID PRN ANXIETY BUSPIRONE HCL 86730623317 Active Herminia Bear Active MEDROL (REBEKAH) 4 MG TABS 6 tabs on day 1, 5 tabs on day 2, 4 tabs on day 3, 3 tabs on day 4, 2 tabs on day 5, 1 tab on day 6 METHYLPREDNISOLONE 65317807062 No Longer Active Herminia Bear Active MELOXICAM 15 MG TABS 1 po q day for pain with food MELOXICAM 79823698692 Active Ian Valdez MD Active DOXYCYCLINE HYCLATE 100 MG CAP 1 cap by mouth twice daily DOXYCYCLINE HYCLATE 36816214733 No Longer Active Najma Vaughn APRN Active MULTIVITAMINS CAPS 1 tablet daily MULTIPLE VITAMIN 18698472288 Active Juan Smith MD Active CYCLOBENZAPRINE HCL 10 MG TABS 1/2 - 1 tab by mouth three times daily if needed for spasms/pain CYCLOBENZAPRINE HCL 41241711540 Active Ian Valdez MD Active GLUCOPHAGE 500 MG TABS 1 tab BID with morning and night meals METFORMIN HCL 27375742560 Active Eva Ferrara MD PhD Active PROGESTERONE MICRONIZED 100 MG CAPS 2 caps daily day 16 thru 25 of cycle 2013 PROGESTERONE MICRONIZED 56532513657 Active Eva Ferrara MD PhD Active TERBINAFINE HCL 1 % CREA Apply bid to rash TERBINAFINE HCL 44956149748 No Longer Active Eva Ferrara MD PhD Active TOPAMAX 25 MG TABS 1 tab po qhs x 1 week, then take 2 tabs po qhs TOPIRAMATE 50493124981 No Longer Active Thom Gilbert MD Active ULTRAM 50 MG TAB take 1 tab po q6hrs prn pain TRAMADOL HCL 76248511962 Active Grayson Josue DO Active LAMISIL AT 1 % CREA apply bid to rash TERBINAFINE HCL 24108844556 No Longer Active Thom Gilbert MD Active TERBINAFINE HCL 250 MG TABS 1 qDay TERBINAFINE HCL 27296782312 No Longer Active Ian Valdez MD Active XANAX 0.25 MG TABS take 1 tab po bid prn anxiety. ALPRAZOLAM 24354202915 No Longer Active Ian Valdez MD Active FISH OIL 1000 MG CAPS 2 caps PO once daily at bedtime OMEGA-3 FATTY ACIDS 86932084570 No Longer Active Ian Valdez MD Active KLOR-CON M20 20 MEQ CR-TABS take 1 tab po qday with lasix POTASSIUM CHLORIDE GALILEO CR 58987601654 Active Ian Valdez MD Active LASIX 20 MG TAB 1 tablet by mouth daily prn swelling FUROSEMIDE 44568200468 Active Ian Valdez MD Active FLONASE 50 MCG/ACT SUSP 2 puffs in each nostril once daily at bedtime FLUTICASONE PROPIONATE 46301107039 Active Ian Valdez MD Active [facility] MELATONIN 3 MG TABS 2 tabs PO at bedtime MELATONIN 53007354950 Active Ian Valdez MD Active PULMICORT FLEXHALER 180 MCG/ACT AEPB 2 INH BID BUDESONIDE 38773409497 No Longer Active Ian Valdez MD Active METFORMIN HCL 500 MG TB24 1 TAB PO Q HS METFORMIN HCL 10691128678 No Longer Active Ian Valdez MD Active CYCLOBENZAPRINE HCL 10 MG TABS 1 PO q 8 hrs PRN muscle spasm 2012 CYCLOBENZAPRINE HCL 19281479897 No Longer Active Ian Valdez MD Active AZITHROMYCIN 500 MG TABS 1 PO q day x 6 days AZITHROMYCIN 59912830914 No Longer Active Ian Valdez MD Active CIPRO 500 MG TAB 1 tablet by mouth twice daily CIPROFLOXACIN HCL 07576927908 No Longer Active Ian Valdez MD Active PREDNISONE 20 MG TABS 3 qd x 2d, 2 qd x 2d, 1 qd x 2d, 1/2 qd x 2d PREDNISONE 79879998739 No Longer Active Law FIGUEROA Active CELEXA 40 MG TABS 2 PO DAILY CITALOPRAM HYDROBROMIDE 33974002684 Active Ian Valdez MD Active OMEPRAZOLE 20 MG CPDR 1 tablet by mouth daily OMEPRAZOLE 74783821596 No Longer Active [place] FIGUEROA Active KLONOPIN 0.5 MG TABS 1 TABLET PO PRN CLONAZEPAM 83207495344 No Longer Active [place] FIGUEROA Active MOBIC 7.5 MG TABS 1 tablet by mouthonce a day MELOXICAM 43571153950 No Longer Active [place] FIGUEROA Active ZITHROMAX 1 GM PACK DIRECTED AZITHROMYCIN 42633226764 No Longer Active Ian Valdez MD Active ALBUTEROL SULFATE 0.083 % NEBU SOLN one vial per nebulizer every 4-6 hours as needed ALBUTEROL SULFATE 23355964178 Active Ian Valdez MD Active CHANTIX STARTING MONTH REBEKAH 0.5 MG X 11 & 1 MG X 42 TABS 0.5mg daily for 3 days , then 0.5mg BID for 4 days, then 1mg BID VARENICLINE TARTRATE 05808627347 No Longer Active Ian Valdez MD Active ZITHROMAX 1 GM PACK DIRECTED AZITHROMYCIN 22831024552 No Longer Active Ian Valdez MD Active AURALGAN 1.4-5.5 % SOLN BENZOCAINE-ANTIPYRINE 96303651860 No Longer Active Ian Valdez MD Active PREDNISONE 20 MG TAB 3 tabs daily for 3 days, 2 tab daily for 3 days, 1 tab daily for 2 days, then 1/2 tab dialy for 2 days PREDNISONE 57048664879 No Longer Active Ian Valdez MD Active SIMVASTATIN 40 MG TABS 1 TABLET PO Q HS SIMVASTATIN 82288661290 Active Ian Vladez MD Active SIMVASTATIN 80 MG TABS Take one by mouth daily SIMVASTATIN 48205881770 No Longer Active Ian Valdez MD Active PREDNISONE 20 MG TAB 2 tabs daily for 3 days, 1 tab daily for 3 days, 1/2 tab daily for 2 days PREDNISONE 49994489619 No Longer Active Ian Valdez MD Active ZITHROMAX 250 MG TAB 2 po today, then 1 po q days 2-5 AZITHROMYCIN 77125710118 No Longer Active Ian Valdez MD Active TRAZODONE HCL 100 MG TABS 2 TABS PO Q HS TRAZODONE HCL 08644064198 Active Ian Valdez MD Active ZITHROMAX 250 MG TAB 2 po today, then 1 po q days 2-5 AZITHROMYCIN 51221638841 No Longer Active Ian Valdez MD Active SIMVASTATIN 80 MG TABS Take one by mouth daily SIMVASTATIN 80 MG TABS 006970 SIMVASTATIN Inactive AURALGAN 1.4-5.5 % SOLN AURALGAN 1.4-5.5 % SOLN BENZOCAINE-ANTIPYRINE Inactive ZITHROMAX 1 GM PACK DIRECTED ZITHROMAX 1 GM PACK 368713 AZITHROMYCIN Inactive CHANTIX STARTING MONTH REBEKAH 0.5 MG X 11 & 1 MG X 42 TABS 0.5mg daily for 3 days , then 0.5mg BID for 4 days, then 1mg BID CHANTIX STARTING MONTH REBEKAH 0.5 MG X 11 & 1 MG X 42 TABS VARENICLINE TARTRATE Inactive ZITHROMAX 1 GM PACK DIRECTED ZITHROMAX 1 GM PACK 135477 AZITHROMYCIN Inactive MOBIC 7.5 MG TABS 1 tablet by mouthonce a day MOBIC 7.5 MG TABS 532957 MELOXICAM Inactive KLONOPIN 0.5 MG TABS 1 TABLET PO PRN KLONOPIN 0.5 MG TABS 062539 CLONAZEPAM Inactive CIPRO 500 MG TAB 1 tablet by mouth twice daily CIPRO 500 MG TAB 290794 CIPROFLOXACIN HCL Inactive AZITHROMYCIN 500 MG TABS 1 PO q day x 6 days AZITHROMYCIN 500 MG TABS 7430235 AZITHROMYCIN Inactive CYCLOBENZAPRINE HCL 10 MG TABS 1 PO q 8 hrs PRN muscle spasm 2012 CYCLOBENZAPRINE HCL 10 MG TABS 333080 CYCLOBENZAPRINE HCL Inactive METFORMIN HCL 500 MG [...] bid prn anxiety. XANAX 0.25 MG TABS 927894 ALPRAZOLAM Inactive LAMISIL AT 1 % CREA apply bid to rash LAMISIL AT 1 % CREA 668559 TERBINAFINE HCL Inactive TOPAMAX 25 MG TABS 1 tab po qhs x 1 week, then take 2 tabs po qhs TOPAMAX 25 MG TABS 375971 TOPIRAMATE Inactive TERBINAFINE HCL 1 % CREA Apply bid to rash TERBINAFINE HCL 1 % CREA 181398 TERBINAFINE HCL Inactive ZITHROMAX 250 MG TAB 2 po today, then 1 po q days 2-5 ZITHROMAX 250 MG TAB 9446025 AZITHROMYCIN Inactive ZITHROMAX 250 MG TAB 2 po today, then 1 po q days 2-5 ZITHROMAX 250 MG TAB 7683914 AZITHROMYCIN Inactive PREDNISONE 20 MG TAB 2 tabs daily for 3 days, 1 tab daily for 3 days, 1/2 tab daily for 2 days PREDNISONE 20 MG TAB 285708 PREDNISONE Inactive PREDNISONE 20 MG TAB 3 tabs daily for 3 days, 2 tab daily for 3 days, 1 tab daily for 2 days, then 1/2 tab dialy for 2 days PREDNISONE 20 MG TAB 508682 PREDNISONE Inactive OMEPRAZOLE 20 MG CPDR 1 tablet by mouth daily OMEPRAZOLE 20 MG CPDR 901572 OMEPRAZOLE Inactive PREDNISONE 20 MG TABS 3 qd x 2d, 2 qd x 2d, 1 qd x 2d, 1/2 qd x 2d PREDNISONE 20 MG TABS 167281 PREDNISONE Inactive TERBINAFINE HCL 250 MG TABS 1 qDay TERBINAFINE HCL 250 MG TABS 254408 TERBINAFINE HCL Inactive DOXYCYCLINE HYCLATE 100 MG CAP 1 cap by mouth twice daily DOXYCYCLINE HYCLATE 100 MG CAP 5996303 DOXYCYCLINE HYCLATE Inactive MEDROL (REBEKAH) 4 MG [...] and acellular pertussis vaccine, adsorbed), booster Boostrix [[id number]] tetanus toxoid, reduced diphtheria toxoid, and acellular pertussis vaccine, adsorbed Vital Signs Date Name Value Unit Range Description blood pressure, diastolic - 8462-4 89 mm[Hg] BP aguillon blood pressure, systolic - 8480-6 163 mm[Hg] BP sys pulse rate E&M - 8867-4 170 /min Heart rate temperature E&M 99.1 [degF] Body temperature weight E&M - 3141-9 200.6 [lb_av] Weight Measured blood pressure, diastolic - [...] count 307 10^3/MM^3 10*3/mm3 142-424 Lab Report: HEPATITIS PANEL, ACUTE W/REFLE - Chemistry hepatitis B surface antigen NON-REACTIVE NON-REACTIVE Lab Report: HGBA1C, Free Thyroxine (L), Thyroid Stimulating Hormone (L), ... - Chemistry hemoglobin A1C, blood, as % of total hemoglobin 5.1 % 4.3-6.0 thyroxine, serum, free 1.02 ng/dL 0.76-1.46 TSH 1.44 m[iU]/mL 0.36-3.74 cholesterol, serum 144 mg/dL 318-937 6921/11/19 triglyceride, serum, fasting 172 mg/dL 30-200 HDL cholesterol, serum 30 mg/dL 32-96 LDL cholesterol, serum 80 mg/dL 0-130 sodium, serum 137 mmol/L 483-004 2077/11/19 potassium, serum 4.1 mmol/L 3.5-5.2 chloride, serum 100 mmol/L 98-107 carbon dioxide, venous blood 26.9 mmol/L 21.0-32.0 blood glucose 84 mg/dL 65-110 urea nitrogen, blood 11 mg/dL 7-18 creatinine, serum 0.90 mg/dL 0.60-1.30 alanine aminotransferase (SGPT), serum 23 U/L 12-78 aspartate aminotransferase (SGOT), serum 17 U/L 15-37 calcium, serum 9.5 mg/dL 8.5-10.1 bilirubin, serum, total 0.70 mg/dL 0.00-1.00 Lab Report: HIV-1/2 Agn/Ritu/92017, Chlamydia/GC APTIMA/30330 - Lab chlamydia DNA probe NOT DETECTED NOT DETECTED Lab Report: HIV-1/2 Agn/Ritu/15969, Chlamydia/GC APTIMA/38799 - Microbiology Neisseria gonorrhoeae DNA probe NOT DETECTED NOT DETECTED Lab Report: TONY INFLUENZA A/B - Toxicology rapid flu test Negative Negative;Positive Office Visit: wellness exam for insurance/ diabetes check - Chemistry cholesterol, target level 200 mg/dL LDL target level 100 mg/dL HDL cholesterol, serum, target level 40 mg/dL triglyceride, target level 150 mg/dL Encounters Code Encounter Date Provider Facility CPT-07718 Level 3 Est. Patient 17:03:54 CDT Carlos Mccormack MD [facility] CPT-41079 Level 3 Est. Patient 20:15:16 CDT Ian Valdez MD [facility] CPT-35785 Level 3 Est. Patient 13:49:34 CDT Ian Valdez MD [facility] CPT-84586 Level 3 Est. Patient 15:50:27 [employer] Najma Vaughn APRN [facility] CPT-35689 Level 4 Est. Patient 21:20:00 [employer]GR[employer] Ian Valdez MD [facility] CPT-37412 Level 3 Est. Patient 15:32:41 [employer] Juan Smith MD [facility] CPT-53182 Level 3 Est. Patient 14:45:01 CDT Eva Ferrara MD PhD [facility] CPT-40602 Level 3 Est. Patient 14:54:10 CDT Ian Valdez MD [facility] CPT-00686 Level 4 Est. Patient 20:36:52 CDT Ian Valdez MD [facility] CPT-75750 Level 4 Est. Patient 11:14:30 [employer]OTOGR[employer] Ian Valdez MD [facility] CPT-79764 Level 3 Est. Patient 19:08:34 PHOTOGRAP[employer] Ian Valdez MD [facility] CPT-46632 Level 3 Est. 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 Patient 18:56:10 CDT Ian Valdez MD [facility]-10385 Level 4 Est. Patient 16:55:56 CDT Ian Valdez MD [facility]-64311 Level 3 Est. Patient 11:27:07 CDT Ian Valdez MD [facility] CPT-57306 Level 3 Est. Patient 15:17:44 CDT Law Rosas [facility] CPT-14509 Level 4 Est. Patient 15:13:53 CDT Wellington Muniz [facility] CPT-27845 Level 3 Est. Patient 14:25:12 [employer] Ian Valdez MD [facility]-46859 Level 3 Est. Patient 10:24:46 CDT Ian Valdez MD [facility] CPT-06917 Level 3 Est. Patient 15:34:19 CDT Ian Valdez MD [facility] CPT-19066 Level 3 Est. Patient 14:22:41 CDT Ian Valdez MD [facility] CPT-04148 Level 3 Est. Patient 15:07:22 PHOTOGR[employer] Ian Valdez MD [facility] CPT-18639 Level 3 New Patient 09:06:43 PHOTOGR[employer] Ian Valdez MD [facility] CPT-10069 Level 3 Est. Patient 15:09:00 [employer]GR[employer] Ian Valdez MD [facility] Procedures Code Procedure Name Date Entry Date Standard Description CPT-05332 Abd compl w upright 17:11:01 CDT CPT-OV Office Visit 16:24:22 CDT CPT-OV Office Visit 15:15:29 [employer] CPT-OV Office Visit 15:49:26 [employer] CPT-J1885 Toradol 60 mg (Ketorolac) 15:37:32 CDT CPT-94005 Abx/Therapy Injection 15:37:32 CDT CPT-J1885 Toradol 60 mg (Ketorolac) 14:45:01 CDT CPT-OV Office Visit 15:19:52 CDT CPT-OV Office Visit 10:41:01 CDT CPT-56968 Core biop breast wo imaging 16:50:06 CDT CPT-OV Office Visit 16:50:05 CDT CPT-06756 UHCG (floor use only) 13:39:36 CDT CPT-23382 Nexplanon Placement 10:11:48 CDT CPT-J7307 Nexplanon (Implant) 10:11:48 CDT CPT-OV Office Visit 09:54:18 CDT CPT-06014 EKG Trac and Interp 16:50:19 CDT CPT-00969 Venipuncture Draw Fee 15:06:08 CDT CPT-J2930 Solu Medrol 125 mg (Methyl Prednisolone Sodium Succinate) 12:44:46 CDT CPT-J1055 Depo Provera 150 mg (Medroxyprogesterone) 12:44:46 CDT CPT-73865 Abx/Therapy Injection 12:44:46 CDT CPT-J1055 Depo Provera 150 mg (Medroxyprogesterone) 14:28:41 CDT CPT-J2930 Solu Medrol 125 mg (Methyl Prednisolone Sodium Succinate) 14:22:41 CDT CPT-23672 Administration single or combination vaccine inc oral 10 :08:06 CDT CPT-42504 Tdap 10:08:06 CDT CPT-G0402 Wl To Medicare Ex 22:17:30 CDT CPT-98281 Venipuncture Draw Fee 10:33:07 [employer] CPT-51469 Venipuncture Draw Fee 10:17:37 PHOTOGRAPHER [employer] CPT-G0403 EKG [facility] To Medicare 22:17:30 CDT
--- OUTSIDE RECORDS SUMMARY | 2018-07-17 20:50 | XMS REPORT | Clinical Summary ---
Author Author Admin, ARIAN Organization [facility] Address Unknown Phone Unavailable Allergies, Adverse Reactions, [...] Ian Valdez MD Myalgia and myositis, unspecified SINUSITIS ICD-473.9 Inactive Ian Valdez MD [...] MG ORAL TBEC TID PRN DICLOFENAC SODIUM 18756105257 Active Nataliyadaria Fortuneida Active BUSPIRONE HCL 7.5 MG ORAL TABS 1 TAB PO BID PRN ANXIETY BUSPIRONE HCL 53426493109 Active Herminia Bear Active MEDROL (REBEKAH) 4 MG TABS 6 tabs on day 1, 5 tabs on day 2, 4 tabs on day 3, 3 tabs on day 4, 2 tabs on day 5, 1 tab on day 6 METHYLPREDNISOLONE 81421430062 No Longer Active Herminia Bear Active MELOXICAM 15 MG TABS 1 po q day for pain with food MELOXICAM 45536010332 Active Ian Valdez MD Active DOXYCYCLINE HYCLATE 100 MG CAP 1 cap by mouth twice daily DOXYCYCLINE HYCLATE 03727036271 No Longer Active Najma Vaughn APRN Active MULTIVITAMINS CAPS 1 tablet daily MULTIPLE VITAMIN 34105865646 Active Juan Smith MD Active CYCLOBENZAPRINE HCL 10 MG TABS 1/2 - 1 tab by mouth three times daily if needed for spasms/pain CYCLOBENZAPRINE HCL 01896153507 Active Ian Valdez MD Active GLUCOPHAGE 500 MG TABS 1 tab BID with morning and night meals METFORMIN HCL 13259789563 Active Eva Ferrara MD PhD Active PROGESTERONE MICRONIZED 100 MG CAPS 2 caps daily day 16 thru 25 of cycle 2013 PROGESTERONE MICRONIZED 82074828148 Active Eva Ferrara MD PhD Active TERBINAFINE HCL 1 % CREA Apply bid to rash TERBINAFINE HCL 00606739483 No Longer Active Eva Ferrara MD PhD Active TOPAMAX 25 MG TABS 1 tab po qhs x 1 week, then take 2 tabs po qhs TOPIRAMATE 22693555622 No Longer Active Thom Gilbert MD Active ULTRAM 50 MG TAB take 1 tab po q6hrs prn pain TRAMADOL HCL 36427971036 Active Ian Valdez MD Active LAMISIL AT 1 % CREA apply bid to rash TERBINAFINE HCL 05057943337 No Longer Active Thom Gilbert MD Active TERBINAFINE HCL 250 MG TABS 1 qDay TERBINAFINE HCL 68711541123 No Longer Active Ian Valdez MD Active XANAX 0.25 MG TABS take 1 tab po bid prn anxiety. ALPRAZOLAM 31425414460 No Longer Active Ian Valdez MD Active FISH OIL 1000 MG CAPS 2 caps PO once daily at bedtime OMEGA-3 FATTY ACIDS 21919767837 No Longer Active Ian Valdez MD Active KLOR-CON M20 20 MEQ CR-TABS take 1 tab po qday with lasix POTASSIUM CHLORIDE GALILEO CR 08347569890 Active Ian Valdez MD Active LASIX 20 MG TAB 1 tablet by mouth daily prn swelling FUROSEMIDE 90843075664 Active Ian Valdez MD Active FLONASE 50 MCG/ACT SUSP 2 puffs in each nostril once daily at bedtime FLUTICASONE PROPIONATE 71047929201 Active Ian Valdez MD Active [facility] MELATONIN 3 MG TABS 2 tabs PO at bedtime MELATONIN 66472281925 Active Ian Valdez MD Active PULMICORT FLEXHALER 180 MCG/ACT AEPB 2 INH BID BUDESONIDE 43272778876 No Longer Active Ian Valdez MD Active METFORMIN HCL 500 MG TB24 1 TAB PO Q HS METFORMIN HCL 92766946194 No Longer Active Ian Valdez MD Active CYCLOBENZAPRINE HCL 10 MG TABS 1 PO q 8 hrs PRN muscle spasm 2012 CYCLOBENZAPRINE HCL 85528757546 No Longer Active Ian Valdez MD Active AZITHROMYCIN 500 MG TABS 1 PO q day x 6 days AZITHROMYCIN 07417726926 No Longer Active Ian Valdez MD Active CIPRO 500 MG TAB 1 tablet by mouth twice daily CIPROFLOXACIN HCL 60267495963 No Longer Active Ian Valdez MD Active PREDNISONE 20 MG TABS 3 qd x 2d, 2 qd x 2d, 1 qd x 2d, 1/2 qd x 2d PREDNISONE 09414281672 No Longer Active Law FIGUEROA Active CELEXA 40 MG TABS 2 PO DAILY CITALOPRAM HYDROBROMIDE 99906905664 Active Ian Valdez MD Active OMEPRAZOLE 20 MG CPDR 1 tablet by mouth daily OMEPRAZOLE 90135183453 No Longer Active [place] FIGUEROA Active KLONOPIN 0.5 MG TABS 1 TABLET PO PRN CLONAZEPAM 09804033723 No Longer Active [place] FIGUEROA Active MOBIC 7.5 MG TABS 1 tablet by mouthonce a day MELOXICAM 81559390356 No Longer Active [place] FIGUEROA Active ZITHROMAX 1 GM PACK DIRECTED AZITHROMYCIN 77372502169 No Longer Active Ian Valdez MD Active ALBUTEROL SULFATE 0.083 % NEBU SOLN one vial per nebulizer every 4-6 hours as needed ALBUTEROL SULFATE 71164403690 Active Ian Valdez MD Active CHANTIX STARTING MONTH REBEKAH 0.5 MG X 11 & 1 MG X 42 TABS 0.5mg daily for 3 days , then 0.5mg BID for 4 days, then 1mg BID VARENICLINE TARTRATE 39219166058 No Longer Active Ian Valdez MD Active ZITHROMAX 1 GM PACK DIRECTED AZITHROMYCIN 83865718758 No Longer Active Ian Valdez MD Active AURALGAN 1.4-5.5 % SOLN BENZOCAINE-ANTIPYRINE 35344396049 No Longer Active Ian Valdez MD Active PREDNISONE 20 MG TAB 3 tabs daily for 3 days, 2 tab daily for 3 days, 1 tab daily for 2 days, then 1/2 tab dialy for 2 days PREDNISONE 78419193481 No Longer Active Ian Valdez MD Active SIMVASTATIN 40 MG TABS 1 TABLET PO Q HS SIMVASTATIN 54527549182 Active Ian Valdez MD Active SIMVASTATIN 80 MG TABS Take one by mouth daily SIMVASTATIN 49124075331 No Longer Active Ian Valdez MD Active PREDNISONE 20 MG TAB 2 tabs daily for 3 days, 1 tab daily for 3 days, 1/2 tab daily for 2 days PREDNISONE 92157961237 No Longer Active Ian Valdez MD Active ZITHROMAX 250 MG TAB 2 po today, then 1 po q days 2-5 AZITHROMYCIN 25935068787 No Longer Active Ian Valdez MD Active TRAZODONE HCL 100 MG TABS 2 TABS PO Q HS TRAZODONE HCL 55612043930 Active Ian Valdez MD Active ZITHROMAX 250 MG TAB 2 po today, then 1 po q days 2-5 AZITHROMYCIN 63195314754 No Longer Active Ian Valdez MD Active SIMVASTATIN 80 MG TABS Take one by mouth daily SIMVASTATIN 80 MG TABS 536188 SIMVASTATIN Inactive AURALGAN 1.4-5.5 % SOLN AURALGAN 1.4-5.5 % SOLN BENZOCAINE-ANTIPYRINE Inactive ZITHROMAX 1 GM PACK DIRECTED ZITHROMAX 1 GM PACK 679451 AZITHROMYCIN Inactive CHANTIX STARTING MONTH REBEKAH 0.5 MG X 11 & 1 MG X 42 TABS 0.5mg daily for 3 days , then 0.5mg BID for 4 days, then 1mg BID CHANTIX STARTING MONTH REBEKAH 0.5 MG X 11 & 1 MG X 42 TABS VARENICLINE TARTRATE Inactive ZITHROMAX 1 GM PACK DIRECTED ZITHROMAX 1 GM PACK 818885 AZITHROMYCIN Inactive MOBIC 7.5 MG TABS 1 tablet by mouthonce a day MOBIC 7.5 MG TABS 629467 MELOXICAM Inactive KLONOPIN 0.5 MG TABS 1 TABLET PO PRN KLONOPIN 0.5 MG TABS 787044 CLONAZEPAM Inactive CIPRO 500 MG TAB 1 tablet by mouth twice daily CIPRO 500 MG TAB 872554 CIPROFLOXACIN HCL Inactive AZITHROMYCIN 500 MG TABS 1 PO q day x 6 days AZITHROMYCIN 500 MG TABS 0133178 AZITHROMYCIN Inactive CYCLOBENZAPRINE HCL 10 MG TABS 1 PO q 8 hrs PRN muscle spasm 2012 CYCLOBENZAPRINE HCL 10 MG TABS 756154 CYCLOBENZAPRINE HCL Inactive METFORMIN HCL 500 MG [...] bid prn anxiety. XANAX 0.25 MG TABS 647638 ALPRAZOLAM Inactive LAMISIL AT 1 % CREA apply bid to rash LAMISIL AT 1 % CREA 018724 TERBINAFINE HCL Inactive TOPAMAX 25 MG TABS 1 tab po qhs x 1 week, then take 2 tabs po qhs TOPAMAX 25 MG TABS 060563 TOPIRAMATE Inactive TERBINAFINE HCL 1 % CREA Apply bid to rash TERBINAFINE HCL 1 % CREA 826746 TERBINAFINE HCL Inactive ZITHROMAX 250 MG TAB 2 po today, then 1 po q days 2-5 ZITHROMAX 250 MG TAB 9385539 AZITHROMYCIN Inactive ZITHROMAX 250 MG TAB 2 po today, then 1 po q days 2-5 ZITHROMAX 250 MG TAB 0817520 AZITHROMYCIN Inactive PREDNISONE 20 MG TAB 2 tabs daily for 3 days, 1 tab daily for 3 days, 1/2 tab daily for 2 days PREDNISONE 20 MG TAB 328351 PREDNISONE Inactive PREDNISONE 20 MG TAB 3 tabs daily for 3 days, 2 tab daily for 3 days, 1 tab daily for 2 days, then 1/2 tab dialy for 2 days PREDNISONE 20 MG TAB 588582 PREDNISONE Inactive OMEPRAZOLE 20 MG CPDR 1 tablet by mouth daily OMEPRAZOLE 20 MG CPDR 582142 OMEPRAZOLE Inactive PREDNISONE 20 MG TABS 3 qd x 2d, 2 qd x 2d, 1 qd x 2d, 1/2 qd x 2d PREDNISONE 20 MG TABS 671638 PREDNISONE Inactive TERBINAFINE HCL 250 MG TABS 1 qDay TERBINAFINE HCL 250 MG TABS 908596 TERBINAFINE HCL Inactive DOXYCYCLINE HYCLATE 100 MG CAP 1 cap by mouth twice daily DOXYCYCLINE HYCLATE 100 MG CAP 19890510 DOXYCYCLINE HYCLATE Inactive MEDROL (REBEKAH) 4 MG [...] and acellular pertussis vaccine, adsorbed), booster Boostrix [[id number]] tetanus toxoid, reduced diphtheria toxoid, and acellular [...] E&M - 3141-9 218.4 [lb_av] Weight Measured blood pressure, diastolic - 8462-4 84 mm[Hg] BP [place] blood pressure, systolic - 8480-6 141 mm[Hg] BP sys pulse rate E&M - 8867-4 89 /min Heart rate temperature E&M 98.2 [degF] Body temperature weight E&M - 3141-9 214 [lb_av] Weight Measured Diagnostic Results Date Name [...] 1.44 m[iU]/mL 0.36-3.74 cholesterol, serum 144 mg/dL 261-221 8980/11/19 triglyceride, serum, fasting 172 mg/dL 30-200 HDL cholesterol, serum 30 mg/dL 32-96 LDL cholesterol, serum 80 mg/dL 0-130 sodium, serum 137 mmol/L 517-479 2429/11/19 potassium, serum 4.1 mmol/L 3.5-5.2 chloride, serum [...] mg/dL Encounters Code Encounter Date Provider Facility CPT-11596 Level 3 Est. Patient 20:15:16 CDT Ian Valdez MD [facility] CPT-22019 Level 3 Est. Patient 13:49:34 CDT Ian Valdez MD [facility] [place][note 2]-05584 Level 3 Est. Patient 15:50:27 WORKDAY MANAGER Najma Vaughn APRN [facility] [place][note 2]-97253 Level 4 Est. Patient 21:20:00 WORKDAY MANAGER Ian Valdez MD [facility] [place][note 2]-64871 Level 3 Est. Patient 15:32:41 WORKDAY MANAGER Juan Smith MD [facility] [place][note 2]-08433 Level 3 Est. Patient 14:45:01 CDT Eva Ferrara MD PhD [facility] [place][note 2]-36340 Level 3 Est. Patient 14:54:10 CDT Ian Valdez MD [facility] [place][note 2]-12283 Level 4 Est. Patient 20:36:52 CDT Ian Valdez MD [facility] [place][note 2]-73084 Level 4 Est. Patient 11:14:30 WORKDAY MANAGER Ian Valdez MD [facility] [place][note 2]-98213 Level 3 Est. Patient 19:08:34 WORKDAY MANAGER Ian Valdez MD [facility] [place][note 2]-06214 Level 3 Est. Patient 13:17:39 WORKDAY MANAGER Ian Valdez MD [facility] [place][note 2]-96820 Level 4 Est. Patient 18:56:10 CDT Ian Valdez MD [facility] [place][note 2]-48310 Level 4 Est. Patient 16:55:56 CDT Ian Valdez MD [facility] [place][note 2]-91801 Level 3 Est. Patient 11:27:07 CDT Ian Valdez MD [facility] [place][note 2]-21953 Level 3 Est. Patient 15:17:44 CDT Law FIGUEROA [facility] [place][note 2]-89333 Level 4 Est. Patient 15:13:53 CDT [place] FIGUEROA [facility] CPT-99423 Level 3 Est. Patient 14:25:12 WORKDAY MANAGER Ian Valdez MD [facility] CPT-76679 Level 3 Est. Patient 10:24:46 CDT Ian Valdez MD [facility] CPT-46600 Level 3 Est. Patient 15:34:19 CDT Ian Valdez MD [facility] CPT-85831 Level 3 Est. Patient 14:22:41 CDT Ian Valdez MD [facility] CPT-46777 Level 3 Est. Patient 15:07:22 WORKDAY MANAGER Ian Valdez MD [facility] CPT-08903 Level 3 New Patient 09:06:43 WORKDAY MANAGER Ian Valdez MD [facility] CPT-80001 Level 3 Est. Patient 15:09:00 WORKDAY MANAGER Ian Valdez MD [facility] Procedures Code Procedure Name Date Entry Date Standard Description CPT-OV Office Visit 16:24:22 CDT CPT-OV Office Visit 15:15:29 WORKDAY MANAGER CPT-OV Office Visit 15:49:26 WORKDAY MANAGER CPT-J1885 Toradol 60 mg (Ketorolac) 15:37:32 CDT CPT-28061 Abx/Therapy Injection 15:37:32 CDT CPT-J1885 Toradol 60 mg (Ketorolac) 14:45:01 CDT CPT-OV Office Visit 15:19:52 CDT CPT-OV Office Visit 10:41:01 CDT CPT-07733 Core biop breast wo imaging 16:50:06 CDT CPT-OV Office Visit 16:50:05 CDT CPT-50977 UHCG (floor use only) 13:39:36 CDT CPT-67536 Nexplanon Placement 10:11:48 CDT CPT-J7307 Nexplanon (Implant) 10:11:48 CDT CPT-OV Office Visit 09:54:18 CDT CPT-39230 EKG Trac and Interp 16:50:19 CDT CPT-11050 Venipuncture Draw Fee 15:06:08 CDT CPT-J2930 Solu Medrol 125 mg (Methyl Prednisolone Sodium Succinate) 12:44:46 CDT CPT-J1055 Depo Provera 150 mg (Medroxyprogesterone) 12:44:46 CDT CPT-17723 Abx/Therapy Injection 12:44:46 CDT CPT-J1055 Depo Provera 150 mg (Medroxyprogesterone) 14:28:41 CDT CPT-J2930 Solu Medrol 125 mg (Methyl Prednisolone Sodium Succinate) 14:22:41 CDT CPT-33318 Administration single or combination vaccine inc oral 10 :08:06 CDT CPT-64959 Tdap 10:08:06 CDT CPT-G0402 Wlcm To Medicare Ex 22:17:30 CDT CPT-85422 Venipuncture Draw Fee 10:33:07 WORKDAY MANAGER CPT-05319 Venipuncture Draw Fee 10:17:37 WORKDAY MANAGER CPT-G0403 EKG Wlc To Medicare 22:17:30 CDT
--- OUTSIDE RECORDS SUMMARY | 2018-07-17 20:51 | XMS REPORT | Clinical Summary ---
Author Author Admin, ARIAN Organization [facility] Address Unknown Phone Unavailable Allergies, Adverse [...] loss ROUTINE HEALTH MAINTENANCE V70.0 Resolved Thom Gilebrt MD Routine general medical examination at a [...] 564.00 Active Carlos Mccormack MD Constipation, unspecified Preventive health care V70.0 Active Nataliya Kierra Routine general medical examination at a health [...] po BID PRN Constipation 10/07 MAGNESIUM CITRATE 38402654491 Active Carlos Mccormack MD Active DICLOFENAC SODIUM 50 MG ORAL TBEC TID PRN DICLOFENAC SODIUM 67900649194 Active Ian Valdez MD Active BUSPIRONE HCL 7.5 MG ORAL TABS 1 TAB PO BID PRN ANXIETY BUSPIRONE HCL 80918031191 Active Herminia Bear Active MEDROL (REBEKAH) 4 MG TABS 6 tabs on day 1, 5 tabs on day 2, 4 tabs on day 3, 3 tabs on day 4, 2 tabs on day 5, 1 tab on day 6 METHYLPREDNISOLONE 02534719339 No Longer Active Herminia Chema Active MELOXICAM 15 MG TABS 1 po q day for pain with food MELOXICAM 08296153503 Active Ian Valdez MD Active DOXYCYCLINE HYCLATE 100 MG CAP 1 cap by mouth twice daily DOXYCYCLINE HYCLATE 13178766841 No Longer Active Najma Vaughn ACCESS CLERK Active MULTIVITAMINS CAPS 1 tablet daily MULTIPLE VITAMIN 52681831936 Active Juan Smiht MD Active CYCLOBENZAPRINE HCL 10 MG TABS 1/2 - 1 tab by mouth three times daily if needed for spasms/pain CYCLOBENZAPRINE HCL 22401115610 Active Ian Valdez MD Active GLUCOPHAGE 500 MG TABS 1 tab BID with morning and night meals METFORMIN HCL 49651382040 Active Eva Ferrara MD PhD Active PROGESTERONE MICRONIZED 100 MG CAPS 2 caps daily day 16 thru 25 of cycle 2013 PROGESTERONE MICRONIZED 28036423916 Active Eva Ferrara MD PhD Active TERBINAFINE HCL 1 % CREA Apply bid to rash TERBINAFINE HCL 57679439901 No Longer Active Eva Ferrara MD PhD Active TOPAMAX 25 MG TABS 1 tab po qhs x 1 week, then take 2 tabs po qhs TOPIRAMATE 19984592567 No Longer Active Thom Gilbert MD Active ULTRAM 50 MG TAB take 1 tab po q6hrs prn pain TRAMADOL HCL 78482816360 Active Ian Valdez MD Active LAMISIL AT 1 % CREA apply bid to rash TERBINAFINE HCL 08405594158 No Longer Active Thom Gilbert MD Active TERBINAFINE HCL 250 MG TABS 1 qDay TERBINAFINE HCL 87467098525 No Longer Active Ian Valdez MD Active XANAX 0.25 MG TABS take 1 tab po bid prn anxiety. ALPRAZOLAM 56731477406 No Longer Active Ian Valdez MD Active FISH OIL 1000 MG CAPS 2 caps PO once daily at bedtime OMEGA-3 FATTY ACIDS 65801404844 No Longer Active Ian Valdez MD Active KLOR-CON M20 20 MEQ CR-TABS take 1 tab po qday with lasix POTASSIUM CHLORIDE GALILEO CR 41615699034 Active Ian Valdez MD Active LASIX 20 MG TAB 1 tablet by mouth daily prn swelling FUROSEMIDE 44255442784 Active Ian Valdez MD Active FLONASE 50 MCG/ACT SUSP 2 puffs in each nostril once daily at bedtime FLUTICASONE PROPIONATE 36492350496 Active Ian Valdez MD Active CVS MELATONIN 3 MG TABS 2 tabs PO at bedtime MELATONIN 26432146407 Active Ian Valdez MD Active PULMICORT FLEXHALER 180 MCG/ACT AEPB 2 INH BID BUDESONIDE 11796153454 No Longer Active Ian Valdez MD Active METFORMIN HCL 500 MG TB24 1 TAB PO Q HS METFORMIN HCL 88072864384 No Longer Active Ian Valdez MD Active CYCLOBENZAPRINE HCL 10 MG TABS 1 PO q 8 hrs PRN muscle spasm 2012 CYCLOBENZAPRINE HCL 14113868602 No Longer Active Ian Valdez MD Active AZITHROMYCIN 500 MG TABS 1 PO q day x 6 days AZITHROMYCIN 04977576819 No Longer Active Ian Valdez MD Active CIPRO 500 MG TAB 1 tablet by mouth twice daily CIPROFLOXACIN HCL 04502165838 No Longer Active Ian Valdez MD Active PREDNISONE 20 MG TABS 3 qd x 2d, 2 qd x 2d, 1 qd x 2d, 1/2 qd x 2d PREDNISONE 62801754557 No Longer Active Law FIGUEROA Active CELEXA 40 MG TABS 2 PO DAILY CITALOPRAM HYDROBROMIDE 16640087484 Active Ian Valdez MD Active OMEPRAZOLE 20 MG CPDR 1 tablet by mouth daily OMEPRAZOLE 23951862404 No Longer Active Wellington FIGUEROA Active KLONOPIN 0.5 MG TABS 1 TABLET PO PRN CLONAZEPAM 09482227022 No Longer Active Wellington FIGUEROA Active MOBIC 7.5 MG TABS 1 tablet by mouthonce a day MELOXICAM 29786465773 No Longer Active [place] FIGUEROA Active ZITHROMAX 1 GM PACK DIRECTED AZITHROMYCIN 66112194518 No Longer Active Ian Valdez MD Active ALBUTEROL SULFATE 0.083 % NEBU SOLN one vial per nebulizer every 4-6 hours as needed ALBUTEROL SULFATE 09017400384 Active Ian Valdez MD Active CHANTIX STARTING MONTH REBEKAH 0.5 MG X 11 & 1 MG X 42 TABS 0.5mg daily for 3 days , then 0.5mg BID for 4 days, then 1mg BID VARENICLINE TARTRATE 40490461810 No Longer Active Ian Valdez MD Active ZITHROMAX 1 GM PACK DIRECTED AZITHROMYCIN 75153278080 No Longer Active Ian Valdez MD Active AURALGAN 1.4-5.5 % SOLN BENZOCAINE-ANTIPYRINE 42305436776 No Longer Active aIn Valdez MD Active PREDNISONE 20 MG TAB 3 tabs daily for 3 days, 2 tab daily for 3 days, 1 tab daily for 2 days, then 1/2 tab dialy for 2 days PREDNISONE 70152451140 No Longer Active Ian Valdez MD Active SIMVASTATIN 40 MG TABS 1 TABLET PO Q HS SIMVASTATIN 49335306418 Active Ian Valdez MD Active SIMVASTATIN 80 MG TABS Take one by mouth daily SIMVASTATIN 73533770032 No Longer Active Ian Valdez MD Active PREDNISONE 20 MG TAB 2 tabs daily for 3 days, 1 tab daily for 3 days, 1/2 tab daily for 2 days PREDNISONE 20731435839 No Longer Active Ian Valdez MD Active ZITHROMAX 250 MG TAB 2 po today, then 1 po q days 2-5 AZITHROMYCIN 97413713946 No Longer Active Ian Valdez MD Active TRAZODONE HCL 100 MG TABS 2 TABS PO Q HS TRAZODONE HCL 55135402643 Active Ian Valdez MD Active ZITHROMAX 250 MG TAB 2 po today, then 1 po q days 2-5 AZITHROMYCIN 58072511017 No Longer Active Ian Valdez MD Active SIMVASTATIN 80 MG TABS Take one by mouth daily SIMVASTATIN 80 MG TABS 851369 SIMVASTATIN Inactive AURALGAN 1.4-5.5 % SOLN AURALGAN 1.4-5.5 % SOLN BENZOCAINE-ANTIPYRINE Inactive ZITHROMAX 1 GM PACK DIRECTED ZITHROMAX 1 GM PACK 478471 AZITHROMYCIN Inactive CHANTIX STARTING MONTH REBEKAH 0.5 MG X 11 & 1 MG X 42 TABS 0.5mg daily for 3 days , then 0.5mg BID for 4 days, then 1mg BID CHANTIX STARTING MONTH REBEKAH 0.5 MG X 11 & 1 MG X 42 TABS VARENICLINE TARTRATE Inactive ZITHROMAX 1 GM PACK DIRECTED ZITHROMAX 1 GM PACK 303098 AZITHROMYCIN Inactive MOBIC 7.5 MG TABS 1 tablet by mouthonce a day MOBIC 7.5 MG TABS 230400 MELOXICAM Inactive KLONOPIN 0.5 MG TABS 1 TABLET PO PRN KLONOPIN 0.5 MG TABS 074851 CLONAZEPAM Inactive CIPRO 500 MG TAB 1 tablet by mouth twice daily CIPRO 500 MG TAB 128063 CIPROFLOXACIN HCL Inactive AZITHROMYCIN 500 MG TABS 1 PO q day x 6 days AZITHROMYCIN 500 MG TABS 4517090 AZITHROMYCIN Inactive CYCLOBENZAPRINE HCL 10 MG TABS 1 PO q 8 hrs PRN muscle spasm 2012 CYCLOBENZAPRINE HCL 10 MG TABS 432592 CYCLOBENZAPRINE HCL Inactive METFORMIN HCL 500 MG [...] bid prn anxiety. XANAX 0.25 MG TABS 741429 ALPRAZOLAM Inactive LAMISIL AT 1 % CREA apply bid to rash LAMISIL AT 1 % CREA 417778 TERBINAFINE HCL Inactive TOPAMAX 25 MG TABS 1 tab po qhs x 1 week, then take 2 tabs po qhs TOPAMAX 25 MG TABS 223558 TOPIRAMATE Inactive TERBINAFINE HCL 1 % CREA Apply bid to rash TERBINAFINE HCL 1 % CREA 254430 TERBINAFINE HCL Inactive ZITHROMAX 250 MG TAB 2 po today, then 1 po q days 2-5 ZITHROMAX 250 MG TAB 3270587 AZITHROMYCIN Inactive ZITHROMAX 250 MG TAB 2 po today, then 1 po q days 2-5 ZITHROMAX 250 MG TAB 2712432 AZITHROMYCIN Inactive PREDNISONE 20 MG TAB 2 tabs daily for 3 days, 1 tab daily for 3 days, 1/2 tab daily for 2 days PREDNISONE 20 MG TAB 025345 PREDNISONE Inactive PREDNISONE 20 MG TAB 3 tabs daily for 3 days, 2 tab daily for 3 days, 1 tab daily for 2 days, then 1/2 tab dialy for 2 days PREDNISONE 20 MG TAB 338700 PREDNISONE Inactive OMEPRAZOLE 20 MG CPDR 1 tablet by mouth daily OMEPRAZOLE 20 MG CPDR 531489 OMEPRAZOLE Inactive PREDNISONE 20 MG TABS 3 qd x 2d, 2 qd x 2d, 1 qd x 2d, 1/2 qd x 2d PREDNISONE 20 MG TABS 626696 PREDNISONE Inactive TERBINAFINE HCL 250 MG TABS 1 qDay TERBINAFINE HCL 250 MG TABS 825235 TERBINAFINE HCL Inactive DOXYCYCLINE HYCLATE 100 MG CAP 1 cap by mouth twice daily DOXYCYCLINE HYCLATE 100 MG CAP 5953495 DOXYCYCLINE HYCLATE Inactive MEDROL (REBEKAH) 4 MG [...] and acellular pertussis vaccine, adsorbed), booster Boostrix [PPS225] tetanus toxoid, reduced diphtheria toxoid, and acellular [...] E&M - 3141-9 216 [lb_av] Weight Measured Diagnostic Results Date Name [...] 1.44 m[iU]/mL 0.36-3.74 cholesterol, serum 144 mg/dL 072-007 6950/11/19 triglyceride, serum, fasting 172 mg/dL 30-200 HDL cholesterol, serum 30 mg/dL 32-96 LDL cholesterol, serum 80 mg/dL 0-130 sodium, serum 137 mmol/L 822-831 5917/11/19 potassium, serum 4.1 mmol/L 3.5-5.2 chloride, serum 100 mmol/L 98-107 carbon dioxide, venous blood 26.9 mmol/L 21.0-32.0 blood glucose 84 mg/dL 65-110 urea nitrogen, blood 11 mg/dL 7-18 creatinine, serum 0.90 mg/dL 0.60-1.30 alanine aminotransferase (SGPT), serum 23 U/L 12-78 aspartate aminotransferase (SGOT), serum 17 U/L 15-37 calcium, serum 9.5 mg/dL 8.5-10.1 bilirubin, serum, total 0.70 mg/dL 0.00-1.00 Lab Report: HIV-1/2 Agn/Ritu/28188, Chlamydia/GC APTIMA/17991 - Lab chlamydia DNA probe NOT DETECTED NOT DETECTED Lab Report: HIV-1/2 Agn/Ritu/90152, Chlamydia/GC APTIMA/71754 - Microbiology Neisseria gonorrhoeae DNA probe NOT DETECTED NOT DETECTED Lab Report: TONY INFLUENZA A/B - Toxicology rapid flu test Negative Negative;Positive Lab Report: [facility] [place] - Chemistry human chorionic gonadotropin, urine, qualitative (urine test) Negative Negative Office Visit: wellness exam for insurance/ diabetes check - Chemistry cholesterol, target level 200 mg/dL LDL target level 100 mg/dL HDL cholesterol, serum, target level 40 mg/dL triglyceride, target level 150 mg/dL Encounters Code Encounter Date Provider Facility CPT-37760 Level 3 Est. Patient 17:03:54 CDT Carlos Mccormack MD [facility] CPT-12656 Level 3 Est. Patient 20:15:16 CDT Ian Valdez MD [facility] CPT-01528 Level 3 Est. Patient 13:49:34 CDT Ian Valdez MD [facility] CPT-51277 Level 3 Est. Patient 15:50:27 SHOE STICKS REPAIRER Najma Vaughn APRN [facility] CPT-13790 Level 4 Est. Patient 21:20:00 SHOE STICKS REPAIRER Ian Valdez MD [facility] CPT-13665 Level 3 Est. Patient 15:32:41 SHOE STICKS REPAIRER Juan Smith MD [facility] CPT-06209 Level 3 Est. Patient 14:45:01 CDT Eva Ferrara MD PhD [facility] CPT-47024 Level 3 Est. Patient 14:54:10 CDT Ian Valdez MD [facility] CPT-75346 Level 4 Est. Patient 20:36:52 CDT Ian Valdez MD [facility] CPT-15349 Level 4 Est. Patient 11:14:30 SHOE STICKS REPAIRER Ian Valdez MD [facility] CPT-09231 Level 3 Est. Patient 19:08:34 SHOE STICKS REPAIRER Ian Valdez MD [facility] CPT-56175 Level 3 Est. Patient 13:17:39 SHOE STICKS REPAIRER Ian Valdez MD [facility] CPT-51889 Level 4 Est. Patient 18:56:10 CDT Ian Valdez MD [facility] CPT-93990 Level 4 Est. Patient 16:55:56 CDT Ian Valdez MD [facility] CPT-55441 Level 3 Est. Patient 11:27:07 CDT Ian Valdez MD [facility] CPT-73155 Level 3 Est. Patient 15:17:44 CDT Law Rosas [facility] CPT-40473 Level 4 Est. Patient 15:13:53 CDT Wellington Muniz [facility] CPT-82303 Level 3 Est. Patient 14:25:12 SHOE STICKS REPAIRER Ian Valdez MD [facility] CPT-11970 Level 3 Est. Patient 10:24:46 CDT Ian Valdez MD [facility] CPT-83703 Level 3 Est. Patient 15:34:19 CDT Ian Valdez MD [facility] CPT-82226 Level 3 Est. Patient 14:22:41 CDT Ian Valdez MD [facility] CPT-12667 Level 3 Est. Patient 15:07:22 SHOE STICKS REPAIRER Ian Valdez MD [facility] CPT-28523 Level 3 New Patient 09:06:43 SHOE STICKS REPAIRER Ian Valdez MD [facility] CPT-33830 Level 3 Est. Patient 15:09:00 SHOE STICKS REPAIRER Ian Valdez MD [facility] Procedures Code Procedure Name Date Entry Date Standard Description CPT-J1050 Depo Provera 150 mg (Medroxyprogesterone) 15:27:21 CDT CPT-02617 Abx/Therapy Injection 15:27:21 CDT CPT-64698 Abd compl w upright 17:11:01 CDT CPT-OV Office Visit 16:24:22 CDT CPT-OV Office Visit 15:15:29 SHOE STICKS REPAIRER CPT-OV Office Visit 15:49:26 SHOE STICKS REPAIRER CPT-J1885 Toradol 60 mg (Ketorolac) 15:37:32 CDT CPT-67354 Abx/Therapy Injection 15:37:32 CDT CPT-J1885 Toradol 60 mg (Ketorolac) 14:45:01 CDT CPT-OV Office Visit 15:19:52 CDT CPT-OV Office Visit 10:41:01 CDT CPT-68402 Core biop breast wo imaging 16:50:06 CDT CPT-OV Office Visit 16:50:05 CDT CPT-62606 UHCG (floor use only) 13:39:36 CDT CPT-55720 Nexplanon Placement 10:11:48 CDT CPT-J7307 Nexplanon (Implant) 10:11:48 CDT CPT-OV Office Visit 09:54:18 CDT CPT-55121 EKG Trac and Interp 16:50:19 CDT CPT-24826 Venipuncture Draw Fee 15:06:08 CDT CPT-J2930 Solu Medrol 125 mg (Methyl Prednisolone Sodium Succinate) 12:44:46 CDT CPT-J1055 Depo Provera 150 mg (Medroxyprogesterone) 12:44:46 CDT CPT-12837 Abx/Therapy Injection 12:44:46 CDT CPT-J1055 Depo Provera 150 mg (Medroxyprogesterone) 14:28:41 CDT CPT-J2930 Solu Medrol 125 mg (Methyl Prednisolone Sodium Succinate) 14:22:41 CDT CPT-37831 Administration single or combination vaccine inc oral 10 :08:06 CDT CPT-25355 Tdap 10:08:06 CDT CPT-G0402 Wlcm To Medicare Ex 22:17:30 CDT CPT-67165 Venipuncture Draw Fee 10:33:07 SHOE STICKS REPAIRER CPT-16460 Venipuncture Draw Fee 10:17:37 SHOE STICKS REPAIRER CPT-G0403 EKG Wlc To Medicare 22:17:30 CDT
--- OUTSIDE RECORDS SUMMARY | 2018-07-17 20:53 | XMS REPORT | Clinical Summary ---
Author Author Admin, ARIAN Organization [facility] Address Unknown Phone Unavailable Allergies, Adverse Reactions, [...] Valdez MD CONTRACEPTIVE MANAGEMENT ICD-V25.09 Inactive Thom iGlbert MD EUSTACHIAN TUBE DYSFUNCTION ICD-381.81 Inactive Ian [...] MG ORAL TBEC TID PRN DICLOFENAC SODIUM 00748540183 Active Nataliya Lozada Active BUSPIRONE HCL 7.5 MG ORAL TABS 1 TAB PO BID PRN ANXIETY BUSPIRONE HCL 52397204893 Active Herminia Bear Active MEDROL (REBEKAH) 4 MG TABS 6 tabs on day 1, 5 tabs on day 2, 4 tabs on day 3, 3 tabs on day 4, 2 tabs on day 5, 1 tab on day 6 METHYLPREDNISOLONE 92894843571 No Longer Active Herminia Bear Active MELOXICAM 15 MG TABS 1 po q day for pain with food MELOXICAM 02511612438 Active Ian Valdez MD Active DOXYCYCLINE HYCLATE 100 MG CAP 1 cap by mouth twice daily DOXYCYCLINE HYCLATE 66474262687 No Longer Active Najma Vaughn APRN Active MULTIVITAMINS CAPS 1 tablet daily MULTIPLE VITAMIN 70863905833 Active Juan Smith MD Active CYCLOBENZAPRINE HCL 10 MG TABS 1/2 - 1 tab by mouth three times daily if needed for spasms/pain CYCLOBENZAPRINE HCL 86850413004 Active Ian Valdez MD Active GLUCOPHAGE 500 MG TABS 1 tab BID with morning and night meals METFORMIN HCL 88608463515 Active Eva Ferrara MD PhD Active PROGESTERONE MICRONIZED 100 MG CAPS 2 caps daily day 16 thru 25 of cycle 2013 PROGESTERONE MICRONIZED 08073869443 Active Eva Ferrara MD PhD Active TERBINAFINE HCL 1 % CREA Apply bid to rash TERBINAFINE HCL 80351496477 No Longer Active Eva Ferrara MD PhD Active TOPAMAX 25 MG TABS 1 tab po qhs x 1 week, then take 2 tabs po qhs TOPIRAMATE 86438959246 No Longer Active Thom Gilbert MD Active ULTRAM 50 MG TAB take 1 tab po q6hrs prn pain TRAMADOL HCL 82333448123 Active Grayson Josue DO Active LAMISIL AT 1 % CREA apply bid to rash TERBINAFINE HCL 73304404528 No Longer Active Thom Gilbert MD Active TERBINAFINE HCL 250 MG TABS 1 qDay TERBINAFINE HCL 04394213088 No Longer Active Ian Valdez MD Active XANAX 0.25 MG TABS take 1 tab po bid prn anxiety. ALPRAZOLAM 88473139258 No Longer Active Ian Valdez MD Active FISH OIL 1000 MG CAPS 2 caps PO once daily at bedtime OMEGA-3 FATTY ACIDS 00272778553 No Longer Active Ian Valdez MD Active KLOR-CON M20 20 MEQ CR-TABS take 1 tab po qday with lasix POTASSIUM CHLORIDE GALILEO CR 88699924365 Active Ian Valdez MD Active LASIX 20 MG TAB 1 tablet by mouth daily prn swelling FUROSEMIDE 44356048448 Active Ian Valdez MD Active FLONASE 50 MCG/ACT SUSP 2 puffs in each nostril once daily at bedtime FLUTICASONE PROPIONATE 71975565278 Active Ian Valdez MD Active CVS MELATONIN 3 MG TABS 2 tabs PO at bedtime MELATONIN 25440308219 Active Ian Valdez MD Active PULMICORT FLEXHALER 180 MCG/ACT AEPB 2 INH BID BUDESONIDE 90420034753 No Longer Active Ian Valdez MD Active METFORMIN HCL 500 MG TB24 1 TAB PO Q HS METFORMIN HCL 48631944243 No Longer Active Ian Valdez MD Active CYCLOBENZAPRINE HCL 10 MG TABS 1 PO q 8 hrs PRN muscle spasm 2012 CYCLOBENZAPRINE HCL 48783795166 No Longer Active Ian Valdez MD Active AZITHROMYCIN 500 MG TABS 1 PO q day x 6 days AZITHROMYCIN 37921604136 No Longer Active Ian Valdez MD Active CIPRO 500 MG TAB 1 tablet by mouth twice daily CIPROFLOXACIN HCL 22367863952 No Longer Active Ian Valdez MD Active PREDNISONE 20 MG TABS 3 qd x 2d, 2 qd x 2d, 1 qd x 2d, 1/2 qd x 2d PREDNISONE 62528523312 No Longer Active Law FIGUEROA Active CELEXA 40 MG TABS 2 PO DAILY CITALOPRAM HYDROBROMIDE 56478831997 Active Ian Valdez MD Active OMEPRAZOLE 20 MG CPDR 1 tablet by mouth daily OMEPRAZOLE 30697865265 No Longer Active [place] FIGUEROA Active KLONOPIN 0.5 MG TABS 1 TABLET PO PRN CLONAZEPAM 87774401535 No Longer Active [place] FIGUEROA Active MOBIC 7.5 MG TABS 1 tablet by mouthonce a day MELOXICAM 98028113568 No Longer Active [place] FIGUEROA Active ZITHROMAX 1 GM PACK DIRECTED AZITHROMYCIN 04860873914 No Longer Active Ian Valdez MD Active ALBUTEROL SULFATE 0.083 % NEBU SOLN one vial per nebulizer every 4-6 hours as needed ALBUTEROL SULFATE 54783932836 Active Ian Valdez MD Active CHANTIX STARTING MONTH REBEKAH 0.5 MG X 11 & 1 MG X 42 TABS 0.5mg daily for 3 days , then 0.5mg BID for 4 days, then 1mg BID VARENICLINE TARTRATE 26391506991 No Longer Active Ian Valdez MD Active ZITHROMAX 1 GM PACK DIRECTED AZITHROMYCIN 81130928489 No Longer Active Ian Valdez MD Active AURALGAN 1.4-5.5 % SOLN BENZOCAINE-ANTIPYRINE 47581670348 No Longer Active Ian Valdez MD Active PREDNISONE 20 MG TAB 3 tabs daily for 3 days, 2 tab daily for 3 days, 1 tab daily for 2 days, then 1/2 tab dialy for 2 days PREDNISONE 81426077681 No Longer Active Ian Valdez MD Active SIMVASTATIN 40 MG TABS 1 TABLET PO Q HS SIMVASTATIN 53285977752 Active Ian Valdez MD Active SIMVASTATIN 80 MG TABS Take one by mouth daily SIMVASTATIN 56868067593 No Longer Active Ian Valdez MD Active PREDNISONE 20 MG TAB 2 tabs daily for 3 days, 1 tab daily for 3 days, 1/2 tab daily for 2 days PREDNISONE 51614816972 No Longer Active Ian Valdez MD Active ZITHROMAX 250 MG TAB 2 po today, then 1 po q days 2-5 AZITHROMYCIN 76465175811 No Longer Active Ian Valdez MD Active TRAZODONE HCL 100 MG TABS 2 TABS PO Q HS TRAZODONE HCL 44105083521 Active Ian Valdez MD Active ZITHROMAX 250 MG TAB 2 po today, then 1 po q days 2-5 AZITHROMYCIN 42441970806 No Longer Active Ian Valdez MD Active SIMVASTATIN 80 MG TABS Take one by mouth daily SIMVASTATIN 80 MG TABS 019370 SIMVASTATIN Inactive AURALGAN 1.4-5.5 % SOLN AURALGAN 1.4-5.5 % SOLN BENZOCAINE-ANTIPYRINE Inactive ZITHROMAX 1 GM PACK DIRECTED ZITHROMAX 1 GM PACK 149808 AZITHROMYCIN Inactive CHANTIX STARTING MONTH REBEKAH 0.5 MG X 11 & 1 MG X 42 TABS 0.5mg daily for 3 days , then 0.5mg BID for 4 days, then 1mg BID CHANTIX STARTING MONTH REBEKAH 0.5 MG X 11 & 1 MG X 42 TABS VARENICLINE TARTRATE Inactive ZITHROMAX 1 GM PACK DIRECTED ZITHROMAX 1 GM PACK 462315 AZITHROMYCIN Inactive MOBIC 7.5 MG TABS 1 tablet by mouthonce a day MOBIC 7.5 MG TABS 717937 MELOXICAM Inactive KLONOPIN 0.5 MG TABS 1 TABLET PO PRN KLONOPIN 0.5 MG TABS 362749 CLONAZEPAM Inactive CIPRO 500 MG TAB 1 tablet by mouth twice daily CIPRO 500 MG TAB 874075 CIPROFLOXACIN HCL Inactive AZITHROMYCIN 500 MG TABS 1 PO q day x 6 days AZITHROMYCIN 500 MG TABS 1285522 AZITHROMYCIN Inactive CYCLOBENZAPRINE HCL 10 MG TABS 1 PO q 8 hrs PRN muscle spasm 2012 CYCLOBENZAPRINE HCL 10 MG TABS 460544 CYCLOBENZAPRINE HCL Inactive METFORMIN HCL 500 MG [...] bid prn anxiety. XANAX 0.25 MG TABS 621029 ALPRAZOLAM Inactive LAMISIL AT 1 % CREA apply bid to rash LAMISIL AT 1 % CREA 919067 TERBINAFINE HCL Inactive TOPAMAX 25 MG TABS 1 tab po qhs x 1 week, then take 2 tabs po qhs TOPAMAX 25 MG TABS 784840 TOPIRAMATE Inactive TERBINAFINE HCL 1 % CREA Apply bid to rash TERBINAFINE HCL 1 % CREA 562083 TERBINAFINE HCL Inactive ZITHROMAX 250 MG TAB 2 po today, then 1 po q days 2-5 ZITHROMAX 250 MG TAB 3885161 AZITHROMYCIN Inactive ZITHROMAX 250 MG TAB 2 po today, then 1 po q days 2-5 ZITHROMAX 250 MG TAB 1690140 AZITHROMYCIN Inactive PREDNISONE 20 MG TAB 2 tabs daily for 3 days, 1 tab daily for 3 days, 1/2 tab daily for 2 days PREDNISONE 20 MG TAB 675060 PREDNISONE Inactive PREDNISONE 20 MG TAB 3 tabs daily for 3 days, 2 tab daily for 3 days, 1 tab daily for 2 days, then 1/2 tab dialy for 2 days PREDNISONE 20 MG TAB 015257 PREDNISONE Inactive OMEPRAZOLE 20 MG CPDR 1 tablet by mouth daily OMEPRAZOLE 20 MG CPDR 894850 OMEPRAZOLE Inactive PREDNISONE 20 MG TABS 3 qd x 2d, 2 qd x 2d, 1 qd x 2d, 1/2 qd x 2d PREDNISONE 20 MG TABS 059951 PREDNISONE Inactive TERBINAFINE HCL 250 MG TABS 1 qDay TERBINAFINE HCL 250 MG TABS 362187 TERBINAFINE HCL Inactive DOXYCYCLINE HYCLATE 100 MG CAP 1 cap by mouth twice daily DOXYCYCLINE HYCLATE 100 MG CAP 641351 DOXYCYCLINE HYCLATE Inactive MEDROL (REBEKAH) 4 MG [...] and acellular pertussis vaccine, adsorbed), booster Boostrix [[id number]] tetanus toxoid, reduced diphtheria toxoid, and acellular [...] 1.44 m[iU]/mL 0.36-3.74 cholesterol, serum 144 mg/dL 014-162 5824/11/19 triglyceride, serum, fasting 172 mg/dL 30-200 HDL cholesterol, serum 30 mg/dL 32-96 LDL cholesterol, serum 80 mg/dL 0-130 sodium, serum 137 mmol/L 232-838 6405/11/19 potassium, serum 4.1 mmol/L 3.5-5.2 chloride, serum [...] mg/dL Encounters Code Encounter Date Provider Facility CPT-75630 Level 3 Est. Patient 20:15:16 CDT Ian Valdez MD [facility] CPT-25014 Level 3 Est. Patient 13:49:34 CDT Ian Valdez MD [facility] CPT-08156 Level 3 Est. Patient 15:50:27 CHOKE REAMER Najma Vaughn APRN [facility] CPT-53871 Level 4 Est. Patient 21:20:00 CHOKE REAMER Ian Valdez MD [facility] CPT-23777 Level 3 Est. Patient 15:32:41 CHOKE REAMER Juan Smith MD [facility]-31139 Level 3 Est. Patient 14:45:01 CDT Eva Ferrara MD PhD [facility]-34595 Level 3 Est. Patient 14:54:10 CDT Ian Valdez MD [facility]-49013 Level 4 Est. Patient 20:36:52 CDT Ian Valdez MD [facility]-65735 Level 4 Est. Patient 11:14:30 CHOKE REAMER Ian Valdez MD [facility]-18649 Level 3 Est. Patient 19:08:34 CHOKE REAMER Ian Valdez MD [facility]-55706 Level 3 Est. Patient 13:17:39 CHOKE REAMER Ian Valdez MD [facility] CPT-71270 Level 4 Est. Patient 18:56:10 CDT Ian Valdez MD [facility]-83933 Level 4 Est. Patient 16:55:56 CDT Ina Valdez MD [facility]-99779 Level 3 Est. Patient 11:27:07 CDT Ian Valdez MD [facility]-93534 Level 3 Est. Patient 15:17:44 CDT Law Rosas [facility] CPT-44208 Level 4 Est. Patient 15:13:53 CDT [place] Muniz [facility]-76412 Level 3 Est. Patient 14:25:12 CHOKE REAMER Ian Valdez MD [facility]-23968 Level 3 Est. Patient 10:24:46 CDT Ian Valdez MD [facility] CPT-47621 Level 3 Est. Patient 15:34:19 CDT Ian Valdez MD [facility] CPT-92582 Level 3 Est. Patient 14:22:41 CDT Ian Valdez MD [facility] CPT-18110 Level 3 Est. Patient 15:07:22 CHOKE REAMER Ian Valdez MD [facility] CPT-70403 Level 3 New Patient 09:06:43 CHOKE REAMER aIn Valdez MD [facility] CPT-14946 Level 3 Est. Patient 15:09:00 CHOKE REAMER Ian Valdez MD [facility] Procedures Code Procedure Name Date Entry Date Standard Description CPT-OV Office Visit 16:24:22 CDT CPT-OV Office Visit 15:15:29 CHOKE REAMER CPT-OV Office Visit 15:49:26 CHOKE REAMER CPT-J1885 Toradol 60 mg (Ketorolac) 15:37:32 CDT CPT-27158 Abx/Therapy Injection 15:37:32 CDT CPT-J1885 Toradol 60 mg (Ketorolac) 14:45:01 CDT CPT-OV Office Visit 15:19:52 CDT CPT-OV Office Visit 10:41:01 CDT CPT-37354 Core biop breast wo imaging 16:50:06 CDT CPT-OV Office Visit 16:50:05 CDT CPT-81308 UHCG (floor use only) 13:39:36 CDT CPT-50349 Nexplanon Placement 10:11:48 CDT CPT-J7307 Nexplanon (Implant) 10:11:48 CDT CPT-OV Office Visit 09:54:18 CDT CPT-19629 EKG Trac and Interp 16:50:19 CDT CPT-15819 Venipuncture Draw Fee 15:06:08 CDT CPT-J2930 Solu Medrol 125 mg (Methyl Prednisolone Sodium Succinate) 12:44:46 CDT CPT-J1055 Depo Provera 150 mg (Medroxyprogesterone) 12:44:46 CDT CPT-61893 Abx/Therapy Injection 12:44:46 CDT CPT-J1055 Depo Provera 150 mg (Medroxyprogesterone) 14:28:41 CDT CPT-J2930 Solu Medrol 125 mg (Methyl Prednisolone Sodium Succinate) 14:22:41 CDT CPT-81172 Administration single or combination vaccine inc oral 10 :08:06 CDT CPT-74001 Tdap 10:08:06 CDT CPT-G0402 Wlcm To Medicare Ex 22:17:30 CDT CPT-67917 Venipuncture Draw Fee 10:33:07 CHOKE REAMER CPT-80730 Venipuncture Draw Fee 10:17:37 CHOKE REAMER CPT-G0403 EKG Wlc To Medicare 22:17:30 CDT
--- OUTSIDE RECORDS SUMMARY | 2018-07-17 20:54 | XMS REPORT | Clinical Summary ---
Author Author Admin, ARIAN Organization [facility] Address Unknown Phone Unavailable Allergies, Adverse [...] other respiratory manifestations Depression, major 296.20 Active uSsana Elder Major depressive disorder, single episode, unspecified degree Fibrocystic breast disease 610.1 Active Thom Gilbert MD Diffuse cystic mastopathy Lateral epicondylitis, right 726.32 Active Ian Valdez MD Lateral epicondylitis Fibromyalgia 729.1 Active Ian Valdez MD Myalgia and myositis, unspecified Health screening V70.0 Active Herminia Bear Routine general medical examination at a health care facility SINUSITIS ICD-473.9 Inactive aIn Valdez MD SCABIES ICD-133.0 Inactive Ian Valdez [...] MG ORAL TBEC TID PRN DICLOFENAC SODIUM 45277305649 Active Nataliya Lozada Active BUSPIRONE HCL 7.5 MG ORAL TABS 1 TAB PO BID PRN ANXIETY BUSPIRONE HCL 20843577454 Active Herminia Bear Active MEDROL (REBEKAH) 4 MG TABS 6 tabs on day 1, 5 tabs on day 2, 4 tabs on day 3, 3 tabs on day 4, 2 tabs on day 5, 1 tab on day 6 METHYLPREDNISOLONE 68442865425 No Longer Active Herminia Bear Active MELOXICAM 15 MG TABS 1 po q day for pain with food MELOXICAM 90166391598 Active Ian Valdez MD Active DOXYCYCLINE HYCLATE 100 MG CAP 1 cap by mouth twice daily DOXYCYCLINE HYCLATE 70502212965 No Longer Active Najma Vaughn APRN Active MULTIVITAMINS CAPS 1 tablet daily MULTIPLE VITAMIN 63677646776 Active Juan Smith MD Active CYCLOBENZAPRINE HCL 10 MG TABS 1/2 - 1 tab by mouth three times daily if needed for spasms/pain CYCLOBENZAPRINE HCL 45256842430 Active Ian Valdez MD Active GLUCOPHAGE 500 MG TABS 1 tab BID with morning and night meals METFORMIN HCL 12997659628 Active Eva Ferrara MD PhD Active PROGESTERONE MICRONIZED 100 MG CAPS 2 caps daily day 16 thru 25 of cycle 2013 PROGESTERONE MICRONIZED 07000516934 Active Eva Ferrara MD PhD Active TERBINAFINE HCL 1 % CREA Apply bid to rash TERBINAFINE HCL 78102813969 No Longer Active Eva Ferrara MD PhD Active TOPAMAX 25 MG TABS 1 tab po qhs x 1 week, then take 2 tabs po qhs TOPIRAMATE 97811124234 No Longer Active Thom Gilbert MD Active ULTRAM 50 MG TAB take 1 tab po q6hrs prn pain TRAMADOL HCL 39535560259 Active Ian Valdez MD Active LAMISIL AT 1 % CREA apply bid to rash TERBINAFINE HCL 57752329980 No Longer Active Thom Gilbert MD Active TERBINAFINE HCL 250 MG TABS 1 qDay TERBINAFINE HCL 13244201895 No Longer Active Ian Valdez MD Active XANAX 0.25 MG TABS take 1 tab po bid prn anxiety. ALPRAZOLAM 91940438950 No Longer Active Ian Valdez MD Active FISH OIL 1000 MG CAPS 2 caps PO once daily at bedtime OMEGA-3 FATTY ACIDS 57090405763 No Longer Active Ian Valdez MD Active KLOR-CON M20 20 MEQ CR-TABS take 1 tab po qday with lasix POTASSIUM CHLORIDE GALILEO CR 33632279557 Active Ian Valdez MD Active LASIX 20 MG TAB 1 tablet by mouth daily prn swelling FUROSEMIDE 01108045163 Active Ian Valdez MD Active FLONASE 50 MCG/ACT SUSP 2 puffs in each nostril once daily at bedtime FLUTICASONE PROPIONATE 02624941616 Active Ian Valdez MD Active CVS MELATONIN 3 MG TABS 2 tabs PO at bedtime MELATONIN 54763851616 Active Ian Valdez MD Active PULMICORT FLEXHALER 180 MCG/ACT AEPB 2 INH BID BUDESONIDE 38954711299 No Longer Active Ian Valdez MD Active METFORMIN HCL 500 MG TB24 1 TAB PO Q HS METFORMIN HCL 29005096943 No Longer Active Ian Valdez MD Active CYCLOBENZAPRINE HCL 10 MG TABS 1 PO q 8 hrs PRN muscle spasm 2012 CYCLOBENZAPRINE HCL 12858420938 No Longer Active Ian Valdez MD Active AZITHROMYCIN 500 MG TABS 1 PO q day x 6 days AZITHROMYCIN 42932928842 No Longer Active Ian Valdez MD Active CIPRO 500 MG TAB 1 tablet by mouth twice daily CIPROFLOXACIN HCL 63464439112 No Longer Active Ian Valdez MD Active PREDNISONE 20 MG TABS 3 qd x 2d, 2 qd x 2d, 1 qd x 2d, 1/2 qd x 2d PREDNISONE 80996792188 No Longer Active Law FIGUEROA Active CELEXA 40 MG TABS 2 PO DAILY CITALOPRAM HYDROBROMIDE 55357381911 Active Ian Valdez MD Active OMEPRAZOLE 20 MG CPDR 1 tablet by mouth daily OMEPRAZOLE 73007807496 No Longer Active [place] FIGUEROA Active KLONOPIN 0.5 MG TABS 1 TABLET PO PRN CLONAZEPAM 83149902846 No Longer Active [place] FIGUEROA Active MOBIC 7.5 MG TABS 1 tablet by mouthonce a day MELOXICAM 70640732617 No Longer Active [place] FIGUEROA Active ZITHROMAX 1 GM PACK DIRECTED AZITHROMYCIN 33781590152 No Longer Active aIn Valdez MD Active ALBUTEROL SULFATE 0.083 % NEBU SOLN one vial per nebulizer every 4-6 hours as needed ALBUTEROL SULFATE 72264962080 Active Ian Valdez MD Active CHANTIX STARTING MONTH REBEKAH 0.5 MG X 11 & 1 MG X 42 TABS 0.5mg daily for 3 days , then 0.5mg BID for 4 days, then 1mg BID VARENICLINE TARTRATE 89989432511 No Longer Active Ian Valdez MD Active ZITHROMAX 1 GM PACK DIRECTED AZITHROMYCIN 80424637913 No Longer Active Ian Valdez MD Active AURALGAN 1.4-5.5 % SOLN BENZOCAINE-ANTIPYRINE 42079827321 No Longer Active Ian Valdez MD Active PREDNISONE 20 MG TAB 3 tabs daily for 3 days, 2 tab daily for 3 days, 1 tab daily for 2 days, then 1/2 tab dialy for 2 days PREDNISONE 75667104511 No Longer Active Ian Valdez MD Active SIMVASTATIN 40 MG TABS 1 TABLET PO Q HS SIMVASTATIN 84560460208 Active Ian Valdez MD Active SIMVASTATIN 80 MG TABS Take one by mouth daily SIMVASTATIN 41199863332 No Longer Active Ian Valdez MD Active PREDNISONE 20 MG TAB 2 tabs daily for 3 days, 1 tab daily for 3 days, 1/2 tab daily for 2 days PREDNISONE 89579181423 No Longer Active Ian Valdez MD Active ZITHROMAX 250 MG TAB 2 po today, then 1 po q days 2-5 AZITHROMYCIN 64027066669 No Longer Active Ian Valdez MD Active TRAZODONE HCL 100 MG TABS 2 TABS PO Q HS TRAZODONE HCL 47985056920 Active Ian Valdez MD Active ZITHROMAX 250 MG TAB 2 po today, then 1 po q days 2-5 AZITHROMYCIN 58654007482 No Longer Active Ian Valdez MD Active SIMVASTATIN 80 MG TABS Take one by mouth daily SIMVASTATIN 80 MG TABS 686576 SIMVASTATIN Inactive AURALGAN 1.4-5.5 % SOLN AURALGAN 1.4-5.5 % SOLN BENZOCAINE-ANTIPYRINE Inactive ZITHROMAX 1 GM PACK DIRECTED ZITHROMAX 1 GM PACK 865565 AZITHROMYCIN Inactive CHANTIX STARTING MONTH REBEKAH 0.5 MG X 11 & 1 MG X 42 TABS 0.5mg daily for 3 days , then 0.5mg BID for 4 days, then 1mg BID CHANTIX STARTING MONTH REBEKAH 0.5 MG X 11 & 1 MG X 42 TABS VARENICLINE TARTRATE Inactive ZITHROMAX 1 GM PACK DIRECTED ZITHROMAX 1 GM PACK 985550 AZITHROMYCIN Inactive MOBIC 7.5 MG TABS 1 tablet by mouthonce a day MOBIC 7.5 MG TABS 333089 MELOXICAM Inactive KLONOPIN 0.5 MG TABS 1 TABLET PO PRN KLONOPIN 0.5 MG TABS 797977 CLONAZEPAM Inactive CIPRO 500 MG TAB 1 tablet by mouth twice daily CIPRO 500 MG TAB 853480 CIPROFLOXACIN HCL Inactive AZITHROMYCIN 500 MG TABS 1 PO q day x 6 days AZITHROMYCIN 500 MG TABS 5194641 AZITHROMYCIN Inactive CYCLOBENZAPRINE HCL 10 MG TABS 1 PO q 8 hrs PRN muscle spasm 2012 CYCLOBENZAPRINE HCL 10 MG TABS 438721 CYCLOBENZAPRINE HCL Inactive METFORMIN HCL 500 MG [...] bid prn anxiety. XANAX 0.25 MG TABS 668586 ALPRAZOLAM Inactive LAMISIL AT 1 % CREA apply bid to rash LAMISIL AT 1 % CREA 701269 TERBINAFINE HCL Inactive TOPAMAX 25 MG TABS 1 tab po qhs x 1 week, then take 2 tabs po qhs TOPAMAX 25 MG TABS 530216 TOPIRAMATE Inactive TERBINAFINE HCL 1 % CREA Apply bid to rash TERBINAFINE HCL 1 % CREA 413346 TERBINAFINE HCL Inactive ZITHROMAX 250 MG TAB 2 po today, then 1 po q days 2-5 ZITHROMAX 250 MG TAB 7763693 AZITHROMYCIN Inactive ZITHROMAX 250 MG TAB 2 po today, then 1 po q days 2-5 ZITHROMAX 250 MG TAB 5887016 AZITHROMYCIN Inactive PREDNISONE 20 MG TAB 2 tabs daily for 3 days, 1 tab daily for 3 days, 1/2 tab daily for 2 days PREDNISONE 20 MG TAB 926460 PREDNISONE Inactive PREDNISONE 20 MG TAB 3 tabs daily for 3 days, 2 tab daily for 3 days, 1 tab daily for 2 days, then 1/2 tab dialy for 2 days PREDNISONE 20 MG TAB 856894 PREDNISONE Inactive OMEPRAZOLE 20 MG CPDR 1 tablet by mouth daily OMEPRAZOLE 20 MG CPDR 246242 OMEPRAZOLE Inactive PREDNISONE 20 MG TABS 3 qd x 2d, 2 qd x 2d, 1 qd x 2d, 1/2 qd x 2d PREDNISONE 20 MG TABS 977384 PREDNISONE Inactive TERBINAFINE HCL 250 MG TABS 1 qDay TERBINAFINE HCL 250 MG TABS 212007 TERBINAFINE HCL Inactive DOXYCYCLINE HYCLATE 100 MG CAP 1 cap by mouth twice daily DOXYCYCLINE HYCLATE 100 MG CAP 990986 DOXYCYCLINE HYCLATE Inactive MEDROL (REBEKAH) 4 MG [...] and acellular pertussis vaccine, adsorbed), booster Boostrix [[id number]] tetanus toxoid, reduced diphtheria toxoid, and acellular [...] 1.44 m[iU]/mL 0.36-3.74 cholesterol, serum 144 mg/dL 746-131 5750/11/19 triglyceride, serum, fasting 172 mg/dL 30-200 HDL cholesterol, serum 30 mg/dL 32-96 LDL cholesterol, serum 80 mg/dL 0-130 sodium, serum 137 mmol/L 561-732 4267/11/19 potassium, serum 4.1 mmol/L 3.5-5.2 chloride, serum [...] mg/dL Encounters Code Encounter Date Provider Facility CPT-14132 Level 3 Est. Patient 20:15:16 CDT Ian Valdez MD [facility] CPT-52095 Level 3 Est. Patient 13:49:34 CDT Ian Valdez MD [facility] CPT-75354 Level 3 Est. Patient 15:50:27 VAT [employer]SE [employer]ORER Najma Vaughn APRN [facility] CPT-28536 Level 4 Est. Patient 21:20:00 VAT HOUSE [employer]ORER Ian Valdez MD [facility] CPT-13267 Level 3 Est. Patient 15:32:41 VAT [employer]SE [employer]ER Juan Smith MD [facility]-53028 Level 3 Est. Patient 14:45:01 CDT Eva Ferrara MD PhD [facility]-23983 Level 3 Est. Patient 14:54:10 CDT Ian Valdez MD [facility]-20992 Level 4 Est. Patient 20:36:52 CDT Ian Valdez MD [facility]-24208 Level 4 Est. Patient 11:14:30 VAT HOUSE [employer]ORER Ian Valdez MD [facility]-48440 Level 3 Est. Patient 19:08:34 VAT HOUSE [employer]ORER Ian Valdez MD [facility]-10704 Level 3 Est. Patient 13:17:39 VAT HOUSE [employer]ORER Ian Valdez MD [facility] CPT-83702 Level 4 Est. Patient 18:56:10 CDT Ian Valdez MD [facility]-43612 Level 4 Est. Patient 16:55:56 CDT Ian Valdez MD [facility]-32287 Level 3 Est. Patient 11:27:07 CDT Ian Valdez MD [facility]-41547 Level 3 Est. Patient 15:17:44 CDT Law Rosas [facility] CPT-68162 Level 4 Est. Patient 15:13:53 CDT [place] Muniz [facility]-33881 Level 3 Est. Patient 14:25:12 VAT HOUSE [employer]ORER Ian Valdez MD [facility]-88043 Level 3 Est. Patient 10:24:46 CDT Ian Valdez MD [facility] CPT-56386 Level 3 Est. Patient 15:34:19 CDT Ian Valdez MD [facility] CPT-12376 Level 3 Est. Patient 14:22:41 CDT Ian Valdez MD [facility] CPT-21430 Level 3 Est. Patient 15:07:22 VAT HOU[employer]ORER Ian Valdez MD [facility] CPT-69744 Level 3 New Patient 09:06:43 VAT HOUSE [employer]ORER Ian Valdez MD [facility] CPT-48049 Level 3 Est. Patient 15:09:00 VAT HOU[employer]ER Ian Valdez MD [facility] Procedures Code Procedure Name Date Entry Date Standard Description CPT-OV Office Visit 16:24:22 CDT CPT-OV Office Visit 15:15:29 VAT HOUSE [employer]ORER CPT-OV Office Visit 15:49:26 VAT [employer]ER CPT-J1885 Toradol 60 mg (Ketorolac) 15:37:32 CDT CPT-35683 Abx/Therapy Injection 15:37:32 CDT CPT-J1885 Toradol 60 mg (Ketorolac) 14:45:01 CDT CPT-OV Office Visit 15:19:52 CDT CPT-OV Office Visit 10:41:01 CDT CPT-84232 Core biop breast wo imaging 16:50:06 CDT CPT-OV Office Visit 16:50:05 CDT CPT-49645 UHCG (floor use only) 13:39:36 CDT CPT-94321 Nexplanon Placement 10:11:48 CDT CPT-J7307 Nexplanon (Implant) 10:11:48 CDT CPT-OV Office Visit 09:54:18 CDT CPT-61815 EKG Trac and Interp 16:50:19 CDT CPT-40479 Venipuncture Draw Fee 15:06:08 CDT CPT-J2930 Solu Medrol 125 mg (Methyl Prednisolone Sodium Succinate) 12:44:46 CDT CPT-J1055 Depo Provera 150 mg (Medroxyprogesterone) 12:44:46 CDT CPT-00919 Abx/Therapy Injection 12:44:46 CDT CPT-J1055 Depo Provera 150 mg (Medroxyprogesterone) 14:28:41 CDT CPT-J2930 Solu Medrol 125 mg (Methyl Prednisolone Sodium Succinate) 14:22:41 CDT CPT-31576 Administration single or combination vaccine inc oral 10 :08:06 CDT CPT-65005 Tdap 10:08:06 CDT CPT-G0402 Wlcm To Medicare Ex 22:17:30 CDT CPT-14355 Venipuncture Draw Fee 10:33:07 VAT [employer] CPT-72404 Venipuncture Draw Fee 10:17:37 VAT [employer] CPT-G0403 EKG Wlc To Medicare 22:17:30 CDT
--- OUTSIDE RECORDS SUMMARY | 2018-07-17 20:55 | XMS REPORT | Clinical Summary ---
Author Author Admin, ARIAN Organization [facility] Address Unknown Phone Unavailable Allergies, [...] Dysfunction of Eustachian tube SINUSITIS 473.9 Resolved Tohm Gilbert MD Unspecified sinusitis (chronic) CONTACT DERMATITIS [...] Ian Valdez MD CONTRACEPTIVE MANAGEMENT ICD-V25.09 Inactive Tohm Gilbert MD EUSTACHIAN TUBE DYSFUNCTION ICD-381.81 Inactive [...] po BID PRN Constipation 10/07 MAGNESIUM CITRATE 87609262641 Active Carlos Mccormack MD Active DICLOFENAC SODIUM 50 MG ORAL TBEC TID PRN DICLOFENAC SODIUM 59964127635 Active Ian Valdez MD Active BUSPIRONE HCL 7.5 MG ORAL TABS 1 TAB PO BID PRN ANXIETY BUSPIRONE HCL 35840526641 Active Herminia Bear Active MEDROL (REBEKAH) 4 MG TABS 6 tabs on day 1, 5 tabs on day 2, 4 tabs on day 3, 3 tabs on day 4, 2 tabs on day 5, 1 tab on day 6 METHYLPREDNISOLONE 79914514763 No Longer Active Herminia Chema Active MELOXICAM 15 MG TABS 1 po q day for pain with food MELOXICAM 13055020294 Active Ian Valdez MD Active DOXYCYCLINE HYCLATE 100 MG CAP 1 cap by mouth twice daily DOXYCYCLINE HYCLATE 42571136481 No Longer Active Najma Vaughn OPEN SOURCE DEVELOPER Active MULTIVITAMINS CAPS 1 tablet daily MULTIPLE VITAMIN 32223372271 Active Juan Smith MD Active CYCLOBENZAPRINE HCL 10 MG TABS 1/2 - 1 tab by mouth three times daily if needed for spasms/pain CYCLOBENZAPRINE HCL 07751510449 Active Ian Valdez MD Active GLUCOPHAGE 500 MG TABS 1 tab BID with morning and night meals METFORMIN HCL 27513810622 Active Eva Ferrara MD PhD Active PROGESTERONE MICRONIZED 100 MG CAPS 2 caps daily day 16 thru 25 of cycle 2013 PROGESTERONE MICRONIZED 11788374755 Active Eva Ferrara MD PhD Active TERBINAFINE HCL 1 % CREA Apply bid to rash TERBINAFINE HCL 92627434706 No Longer Active Eva Ferrara MD PhD Active TOPAMAX 25 MG TABS 1 tab po qhs x 1 week, then take 2 tabs po qhs TOPIRAMATE 44496722500 No Longer Active Thom Gilbert MD Active ULTRAM 50 MG TAB take 1 tab po q6hrs prn pain TRAMADOL HCL 59718904811 Active Ian Valdez MD Active LAMISIL AT 1 % CREA apply bid to rash TERBINAFINE HCL 36192819729 No Longer Active Thom Gilbert MD Active TERBINAFINE HCL 250 MG TABS 1 qDay TERBINAFINE HCL 48529897187 No Longer Active Ian Valdez MD Active XANAX 0.25 MG TABS take 1 tab po bid prn anxiety. ALPRAZOLAM 17619835385 No Longer Active Ian Valdez MD Active FISH OIL 1000 MG CAPS 2 caps PO once daily at bedtime OMEGA-3 FATTY ACIDS 88643415747 No Longer Active Ian Valdez MD Active KLOR-CON M20 20 MEQ CR-TABS take 1 tab po qday with lasix POTASSIUM CHLORIDE GALILEO CR 78167924496 Active Ian Valdez MD Active LASIX 20 MG TAB 1 tablet by mouth daily prn swelling FUROSEMIDE 73931863918 Active Ian Valdez MD Active FLONASE 50 MCG/ACT SUSP 2 puffs in each nostril once daily at bedtime FLUTICASONE PROPIONATE 61290658606 Active Ian Valdez MD Active [facility] MELATONIN 3 MG TABS 2 tabs PO at bedtime MELATONIN 36291493532 Active Ian Valdez MD Active PULMICORT FLEXHALER 180 MCG/ACT AEPB 2 INH BID BUDESONIDE 15628448436 No Longer Active Ian Valdez MD Active METFORMIN HCL 500 MG TB24 1 TAB PO Q HS METFORMIN HCL 97728840409 No Longer Active Ian Valdez MD Active CYCLOBENZAPRINE HCL 10 MG TABS 1 PO q 8 hrs PRN muscle spasm 2012 CYCLOBENZAPRINE HCL 86686216503 No Longer Active Ian Valdez MD Active AZITHROMYCIN 500 MG TABS 1 PO q day x 6 days AZITHROMYCIN 76825409637 No Longer Active Ian Valdez MD Active CIPRO 500 MG TAB 1 tablet by mouth twice daily CIPROFLOXACIN HCL 83439836436 No Longer Active Ian Valdez MD Active PREDNISONE 20 MG TABS 3 qd x 2d, 2 qd x 2d, 1 qd x 2d, 1/2 qd x 2d PREDNISONE 55696810529 No Longer Active Law FIGUEROA Active CELEXA 40 MG TABS 2 PO DAILY CITALOPRAM HYDROBROMIDE 95241451698 Active Ian Valdez MD Active OMEPRAZOLE 20 MG CPDR 1 tablet by mouth daily OMEPRAZOLE 70775896545 No Longer Active [place] FIGUEROA Active KLONOPIN 0.5 MG TABS 1 TABLET PO PRN CLONAZEPAM 88521425276 No Longer Active [place] FIGUEROA Active MOBIC 7.5 MG TABS 1 tablet by mouthonce a day MELOXICAM 37564081319 No Longer Active [place] FIGUEROA Active ZITHROMAX 1 GM PACK DIRECTED AZITHROMYCIN 33956053552 No Longer Active Ian Valdez MD Active ALBUTEROL SULFATE 0.083 % NEBU SOLN one vial per nebulizer every 4-6 hours as needed ALBUTEROL SULFATE 10403022011 Active aIn Valdez MD Active CHANTIX STARTING MONTH REBEKAH 0.5 MG X 11 & 1 MG X 42 TABS 0.5mg daily for 3 days , then 0.5mg BID for 4 days, then 1mg BID VARENICLINE TARTRATE 22164703060 No Longer Active Ian Valdez MD Active ZITHROMAX 1 GM PACK DIRECTED AZITHROMYCIN 38410625049 No Longer Active Ian Valdez MD Active AURALGAN 1.4-5.5 % SOLN BENZOCAINE-ANTIPYRINE 66816552127 No Longer Active Ian Valdez MD Active PREDNISONE 20 MG TAB 3 tabs daily for 3 days, 2 tab daily for 3 days, 1 tab daily for 2 days, then 1/2 tab dialy for 2 days PREDNISONE 64786865670 No Longer Active Ian Valdez MD Active SIMVASTATIN 40 MG TABS 1 TABLET PO Q HS SIMVASTATIN 48413786361 Active Ian Valdez MD Active SIMVASTATIN 80 MG TABS Take one by mouth daily SIMVASTATIN 80445341476 No Longer Active Ian Valdez MD Active PREDNISONE 20 MG TAB 2 tabs daily for 3 days, 1 tab daily for 3 days, 1/2 tab daily for 2 days PREDNISONE 05198967949 No Longer Active Ian Valdez MD Active ZITHROMAX 250 MG TAB 2 po today, then 1 po q days 2-5 AZITHROMYCIN 55143950929 No Longer Active Ina Valdez MD Active TRAZODONE HCL 100 MG TABS 2 TABS PO Q HS TRAZODONE HCL 87361620606 Active Ian Valdez MD Active ZITHROMAX 250 MG TAB 2 po today, then 1 po q days 2-5 AZITHROMYCIN 46070586930 No Longer Active Ian Valdez MD Active SIMVASTATIN 80 MG TABS Take one by mouth daily SIMVASTATIN 80 MG TABS 669555 SIMVASTATIN Inactive AURALGAN 1.4-5.5 % SOLN AURALGAN 1.4-5.5 % SOLN BENZOCAINE-ANTIPYRINE Inactive ZITHROMAX 1 GM PACK DIRECTED ZITHROMAX 1 GM PACK 131724 AZITHROMYCIN Inactive CHANTIX STARTING MONTH REBEKAH 0.5 MG X 11 & 1 MG X 42 TABS 0.5mg daily for 3 days , then 0.5mg BID for 4 days, then 1mg BID CHANTIX STARTING MONTH REBEKAH 0.5 MG X 11 & 1 MG X 42 TABS VARENICLINE TARTRATE Inactive ZITHROMAX 1 GM PACK DIRECTED ZITHROMAX 1 GM PACK 136795 AZITHROMYCIN Inactive MOBIC 7.5 MG TABS 1 tablet by mouthonce a day MOBIC 7.5 MG TABS 874036 MELOXICAM Inactive KLONOPIN 0.5 MG TABS 1 TABLET PO PRN KLONOPIN 0.5 MG TABS 661091 CLONAZEPAM Inactive CIPRO 500 MG TAB 1 tablet by mouth twice daily CIPRO 500 MG TAB 717788 CIPROFLOXACIN HCL Inactive AZITHROMYCIN 500 MG TABS 1 PO q day x 6 days AZITHROMYCIN 500 MG TABS 8972331 AZITHROMYCIN Inactive CYCLOBENZAPRINE HCL 10 MG TABS 1 PO q 8 hrs PRN muscle spasm 2012 CYCLOBENZAPRINE HCL 10 MG TABS 106112 CYCLOBENZAPRINE HCL Inactive METFORMIN HCL 500 MG [...] bid prn anxiety. XANAX 0.25 MG TABS 785566 ALPRAZOLAM Inactive LAMISIL AT 1 % CREA apply bid to rash LAMISIL AT 1 % CREA 269874 TERBINAFINE HCL Inactive TOPAMAX 25 MG TABS 1 tab po qhs x 1 week, then take 2 tabs po qhs TOPAMAX 25 MG TABS 167520 TOPIRAMATE Inactive TERBINAFINE HCL 1 % CREA Apply bid to rash TERBINAFINE HCL 1 % CREA 494109 TERBINAFINE HCL Inactive ZITHROMAX 250 MG TAB 2 po today, then 1 po q days 2-5 ZITHROMAX 250 MG TAB 8174952 AZITHROMYCIN Inactive ZITHROMAX 250 MG TAB 2 po today, then 1 po q days 2-5 ZITHROMAX 250 MG TAB 2078599 AZITHROMYCIN Inactive PREDNISONE 20 MG TAB 2 tabs daily for 3 days, 1 tab daily for 3 days, 1/2 tab daily for 2 days PREDNISONE 20 MG TAB 341193 PREDNISONE Inactive PREDNISONE 20 MG TAB 3 tabs daily for 3 days, 2 tab daily for 3 days, 1 tab daily for 2 days, then 1/2 tab dialy for 2 days PREDNISONE 20 MG TAB 240921 PREDNISONE Inactive OMEPRAZOLE 20 MG CPDR 1 tablet by mouth daily OMEPRAZOLE 20 MG CPDR 978642 OMEPRAZOLE Inactive PREDNISONE 20 MG TABS 3 qd x 2d, 2 qd x 2d, 1 qd x 2d, 1/2 qd x 2d PREDNISONE 20 MG TABS 724072 PREDNISONE Inactive TERBINAFINE HCL 250 MG TABS 1 qDay TERBINAFINE HCL 250 MG TABS 941228 TERBINAFINE HCL Inactive DOXYCYCLINE HYCLATE 100 MG CAP 1 cap by mouth twice daily DOXYCYCLINE HYCLATE 100 MG CAP 9345015 DOXYCYCLINE HYCLATE Inactive MEDROL (REBEKAH) 4 MG [...] and acellular pertussis vaccine, adsorbed), booster Boostrix [[id number]] tetanus toxoid, reduced diphtheria toxoid, and acellular [...] 1.44 m[iU]/mL 0.36-3.74 cholesterol, serum 144 mg/dL 549-867 2216/11/19 triglyceride, serum, fasting 172 mg/dL 30-200 HDL cholesterol, serum 30 mg/dL 32-96 LDL cholesterol, serum 80 mg/dL 0-130 sodium, serum 137 mmol/L 394-005 8750/11/19 potassium, serum 4.1 mmol/L 3.5-5.2 chloride, serum 100 mmol/L 98-107 carbon dioxide, venous blood 26.9 mmol/L 21.0-32.0 blood glucose 84 mg/dL 65-110 urea nitrogen, blood 11 mg/dL 7-18 creatinine, serum 0.90 mg/dL 0.60-1.30 alanine aminotransferase (SGPT), serum 23 U/L 12-78 aspartate aminotransferase (SGOT), serum 17 U/L 15-37 calcium, serum 9.5 mg/dL 8.5-10.1 bilirubin, serum, total 0.70 mg/dL 0.00-1.00 Lab Report: HIV-1/2 Agn/Ritu/96263, Chlamydia/GC APTIMA/51376 - Lab chlamydia DNA probe NOT DETECTED NOT DETECTED Lab Report: HIV-1/2 Agn/Ritu/36441, Chlamydia/GC APTIMA/72462 - Microbiology Neisseria gonorrhoeae DNA probe NOT DETECTED NOT DETECTED Lab Report: TONY INFLUENZA A/B - Toxicology rapid flu test Negative Negative;Positive Lab Report: [facility] [place] Chemistry human chorionic gonadotropin, urine, qualitative (urine test) Negative Negative Office Visit: wellness exam for insurance/ diabetes check - Chemistry cholesterol, target level 200 mg/dL LDL target level 100 mg/dL HDL cholesterol, serum, target level 40 mg/dL triglyceride, target level 150 mg/dL Encounters Code Encounter Date Provider Facility CPT-08449 Level 3 Est. Patient 17:03:54 CDT Carlos Mccormack MD [facility] CPT-00901 Level 3 Est. Patient 20:15:16 CDT Ian Valdez MD [facility] CPT-31853 Level 3 Est. Patient 13:49:34 CDT Ian Valdez MD [facility] CPT-21041 Level 3 Est. Patient 15:50:27 CARAMEL CUTTER MACHINE Najma Vaughn APRN [facility] CPT-35519 Level 4 Est. Patient 21:20:00 CARAMEL CUTTER MACHINE Ian Valdez MD [facility] CPT-22325 Level 3 Est. Patient 15:32:41 CARAMEL CUTTER MACHINE Juan Smith MD [facility] CPT-08080 Level 3 Est. Patient 14:45:01 CDT Eva Ferrara MD PhD [facility] CPT-59416 Level 3 Est. Patient 14:54:10 CDT Ian Valdez MD [facility] CPT-49908 Level 4 Est. Patient 20:36:52 CDT Ian Valdez MD [facility] CPT-11935 Level 4 Est. Patient 11:14:30 CARAMEL CUTTER MACHINE Ian Valdez MD [facility] CPT-84835 Level 3 Est. Patient 19:08:34 CARAMEL CUTTER MACHINE Ian Valdez MD [facility] CPT-30838 Level 3 Est. Patient 13:17:39 CARAMEL CUTTER MACHINE Ian Valdez MD [facility] CPT-55401 Level 4 Est. Patient 18:56:10 CDT Ian Valdez MD [facility] CPT-68661 Level 4 Est. Patient 16:55:56 CDT Ian Valdez MD [facility] CPT-48152 Level 3 Est. Patient 11:27:07 CDT Ian Valdez MD [facility] CPT-69736 Level 3 Est. Patient 15:17:44 CDT Law Rosas [facility] CPT-14315 Level 4 Est. Patient 15:13:53 CDT Wellington Muniz [facility] CPT-34202 Level 3 Est. Patient 14:25:12 CARAMEL CUTTER MACHINE Ian Valdez MD [facility] CPT-04147 Level 3 Est. Patient 10:24:46 CDT Ian Valdez MD [facility] CPT-12438 Level 3 Est. Patient 15:34:19 CDT Ian Valdez MD [facility] CPT-66771 Level 3 Est. Patient 14:22:41 CDT Ian Valdez MD [facility] CPT-46168 Level 3 Est. Patient 15:07:22 CARAMEL CUTTER MACHINE Ian Valdez MD [facility] CPT-71247 Level 3 New Patient 09:06:43 CARAMEL CUTTER MACHINE Ian Valdez MD [facility] CPT-38598 Level 3 Est. Patient 15:09:00 CARAMEL CUTTER MACHINE Ian Valdez MD [facility] Procedures Code Procedure Name Date Entry Date Standard Description CPT-J1050 Depo Provera 150 mg (Medroxyprogesterone) 15:27:21 CDT CPT-64186 Abx/Therapy Injection 15:27:21 CDT CPT-76829 Abd compl w upright 17:11:01 CDT CPT-OV Office Visit 16:24:22 CDT CPT-OV Office Visit 15:15:29 CARAMEL CUTTER MACHINE CPT-OV Office Visit 15:49:26 CARAMEL CUTTER MACHINE CPT-J1885 Toradol 60 mg (Ketorolac) 15:37:32 CDT CPT-21946 Abx/Therapy Injection 15:37:32 CDT CPT-J1885 Toradol 60 mg (Ketorolac) 14:45:01 CDT CPT-OV Office Visit 15:19:52 CDT CPT-OV Office Visit 10:41:01 CDT CPT-23216 Core biop breast wo imaging 16:50:06 CDT CPT-OV Office Visit 16:50:05 CDT CPT-84304 UHCG (floor use only) 13:39:36 CDT CPT-39032 Nexplanon Placement 10:11:48 CDT CPT-J7307 Nexplanon (Implant) 10:11:48 CDT CPT-OV Office Visit 09:54:18 CDT CPT-96964 EKG Trac and Interp 16:50:19 CDT CPT-16507 Venipuncture Draw Fee 15:06:08 CDT CPT-J2930 Solu Medrol 125 mg (Methyl Prednisolone Sodium Succinate) 12:44:46 CDT CPT-J1055 Depo Provera 150 mg (Medroxyprogesterone) 12:44:46 CDT CPT-13826 Abx/Therapy Injection 12:44:46 CDT CPT-J1055 Depo Provera 150 mg (Medroxyprogesterone) 14:28:41 CDT CPT-J2930 Solu Medrol 125 mg (Methyl Prednisolone Sodium Succinate) 14:22:41 CDT CPT-64210 Administration single or combination vaccine inc oral 10 :08:06 CDT CPT-28349 Tdap 10:08:06 CDT CPT-G0402 Wlcm To Medicare Ex 22:17:30 CDT CPT-72689 Venipuncture Draw Fee 10:33:07 CARAMEL CUTTER MACHINE CPT-03992 Venipuncture Draw Fee 10:17:37 CARAMEL CUTTER MACHINE CPT-G0403 EKG Wlc To Medicare 22:17:30 CDT
--- OUTSIDE RECORDS SUMMARY | 2018-07-17 20:56 | XMS REPORT | Clinical Summary ---
Author Author Admin, ARIAN Organization [facility] Address Unknown Phone Unavailable Allergies, Adverse Reactions, [...] of ankle sprain Peripheral edema 782.3 Resolved Thmo Gilbert MD Edema Chronic pain 338.29 Inactive [...] unspecified Preventive health care V70.0 Active Nataliya Lozada Routine general medical examination at a health care facility Acne 706.1 Active Ian Valdez MD Other acne Back pain, thoracic region 724.1 Active Law FIGUEROA Pain in thoracic spine Back pain, lumbar 724.2 Active Law FIGUEROA Lumbago Sciatica, left 724.3 Active Law FIGUEROA Sciatica SINUSITIS ICD-473.9 Inactive Ian Valdez MD SCABIES [...] Generic Name NDC Status Provider Patient Instruction OXYCODONE-ACETAMINOPHEN 5-325 MG ORAL TABS 1-2 tablets PO q 8 hrs PRN pain OXYCODONE-ACETAMINOPHEN 51156215478 Active Law FIGUEROA Active MINOCYCLINE HCL 100 MG CAP 1 TAB PO DAILY MINOCYCLINE HCL 98400033974 Active Herminia Bear Active BENZACLIN 1-5 % EXT GEL apply to face BID for acne. 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 Active MAGNESIUM CITRATE 1.745 GM/30ML ORAL SOLN 150ml po BID PRN Constipation 10/07 MAGNESIUM CITRATE 38908954317 Active Ian Valdez MD Active BUSPIRONE HCL 7.5 MG ORAL TABS 1 TAB PO BID PRN ANXIETY BUSPIRONE HCL 98739287084 Active Ian Valdez MD Active MEDROL (REBEKAH) 4 MG TABS 6 tabs on day 1, 5 tabs on day 2, 4 tabs on day 3, 3 tabs on day 4, 2 tabs on day 5, 1 tab on day 6 METHYLPREDNISOLONE 00338931879 No Longer Active Herminia Bear Active MELOXICAM 15 MG TABS 1 po q day for pain with food MELOXICAM 05365166665 Active Ian Valdez MD Active DOXYCYCLINE HYCLATE 100 MG CAP 1 cap by mouth twice daily DOXYCYCLINE HYCLATE 22758583105 No Longer Active Najma Vaughn APRN Active MULTIVITAMINS CAPS 1 tablet daily MULTIPLE VITAMIN 22640298697 Active Juan Smith MD Active CYCLOBENZAPRINE HCL 10 MG TABS 1/2 - 1 tab by mouth three times daily if needed for spasms/pain CYCLOBENZAPRINE HCL 75108026212 Active Ian Valdez MD Active GLUCOPHAGE 500 MG TABS 1 tab BID with morning and night meals METFORMIN HCL 71585025822 Active Eva Ferrara MD PhD Active PROGESTERONE MICRONIZED 100 MG CAPS 2 caps daily day 16 thru 25 of cycle 2013 PROGESTERONE MICRONIZED 44220427513 Active Eva Ferrara MD PhD Active TERBINAFINE HCL 1 % CREA Apply bid to rash TERBINAFINE HCL 70641127482 No Longer Active Eva Ferrara MD PhD Active TOPAMAX 25 MG TABS 1 tab po qhs x 1 week, then take 2 tabs po qhs TOPIRAMATE 31124476205 No Longer Active Thom Gilbert MD Active ULTRAM 50 MG TAB take 1 tab po q6hrs prn pain TRAMADOL HCL 85270611241 Active Addis William A[employer]IT 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 ALPRAZOLAM 86981430536 No Longer Active Ian Valdez MD Active FISH OIL 1000 MG CAPS 2 caps PO once daily at bedtime OMEGA-3 FATTY ACIDS 88765359048 No Longer Active Ian aVldez MD Active KLOR-CON M20 20 MEQ CR-TABS take 1 tab po qday with lasix POTASSIUM CHLORIDE GALILEO CR 48522198463 Active Ian Valdez MD Active LASIX 20 MG TAB 1 tablet by mouth daily prn swelling FUROSEMIDE 50357024218 Active Ian Valdez MD Active FLONASE 50 MCG/ACT SUSP 2 puffs in each nostril once daily at bedtime FLUTICASONE PROPIONATE 45908359718 Active Ian Valdez MD Active [facility] MELATONIN 3 MG TABS 2 tabs PO at bedtime MELATONIN 70276048934 Active Ian Valdez MD Active PULMICORT FLEXHALER 180 MCG/ACT AEPB 2 INH BID BUDESONIDE 51199860749 No Longer Active Ian Valdez MD Active METFORMIN HCL 500 MG TB24 1 TAB PO Q HS METFORMIN HCL 78641053301 No Longer Active Ian Valdez MD Active CYCLOBENZAPRINE HCL 10 MG TABS 1 PO q 8 hrs PRN muscle spasm 2012 CYCLOBENZAPRINE HCL 82913078972 No Longer Active Ian Valdez MD Active AZITHROMYCIN 500 MG TABS 1 PO q day x 6 days AZITHROMYCIN 37322044058 No Longer Active Ian Valdez MD Active CIPRO 500 MG TAB 1 tablet by mouth twice daily CIPROFLOXACIN HCL 29574129193 No Longer Active Ian Valdez MD Active PREDNISONE 20 MG TABS 3 qd x 2d, 2 qd x 2d, 1 qd x 2d, 1/2 qd x 2d PREDNISONE 95133762435 No Longer Active Law FIGUEROA Active CELEXA 40 MG TABS 2 PO DAILY CITALOPRAM HYDROBROMIDE 74698799334 Active Ian Valdez MD Active OMEPRAZOLE 20 MG CPDR 1 tablet by mouth daily OMEPRAZOLE 48595013384 No Longer Active [place] FIGUEROA Active KLONOPIN 0.5 MG TABS 1 TABLET PO PRN CLONAZEPAM 99434000952 No Longer Active [place] FIGUEROA Active MOBIC 7.5 MG TABS 1 tablet by mouthonce a day MELOXICAM 17857255489 No Longer Active [place] FIGUEROA Active ZITHROMAX 1 GM PACK DIRECTED AZITHROMYCIN 55427085024 No Longer Active Ian Valdez MD Active ALBUTEROL SULFATE 0.083 % NEBU SOLN one vial per nebulizer every 4-6 hours as needed ALBUTEROL SULFATE 11149176391 Active Ian Valdez MD Active CHANTIX STARTING MONTH REBEKAH 0.5 MG X 11 & 1 MG X 42 TABS 0.5mg daily for 3 days , then 0.5mg BID for 4 days, then 1mg BID VARENICLINE TARTRATE 12901416640 No Longer Active Ian Valdez MD Active ZITHROMAX 1 GM PACK DIRECTED AZITHROMYCIN 92873918884 No Longer Active Ian Valdez MD Active AURALGAN 1.4-5.5 % SOLN BENZOCAINE-ANTIPYRINE 77669626230 No Longer Active Ian Valdez MD Active PREDNISONE 20 MG TAB 3 tabs daily for 3 days, 2 tab daily for 3 days, 1 tab daily for 2 days, then 1/2 tab dialy for 2 days PREDNISONE 18203829224 No Longer Active Ian Valdez MD Active SIMVASTATIN 40 MG TABS 1 TABLET PO Q HS SIMVASTATIN 74154127954 Active Ian Valdez MD Active SIMVASTATIN 80 MG TABS Take one by mouth daily SIMVASTATIN 54014970147 No Longer Active Ian Valdez MD Active PREDNISONE 20 MG TAB 2 tabs daily for 3 days, 1 tab daily for 3 days, 1/2 tab daily for 2 days PREDNISONE 12128952348 No Longer Active Ian Valdez MD Active ZITHROMAX 250 MG TAB 2 po today, then 1 po q days 2-5 AZITHROMYCIN 43355295356 No Longer Active Ian Valdez MD Active TRAZODONE HCL 100 MG TABS 2 TABS PO Q HS TRAZODONE HCL 77382851076 Active Ian Valdez MD Active ZITHROMAX 250 MG TAB 2 po today, then 1 po q days 2-5 AZITHROMYCIN 97327194879 No Longer Active Ian Valdez MD Active SIMVASTATIN 80 MG TABS Take one by mouth daily SIMVASTATIN 80 MG TABS 020267 SIMVASTATIN Inactive AURALGAN 1.4-5.5 % SOLN AURALGAN 1.4-5.5 % SOLN BENZOCAINE-ANTIPYRINE Inactive ZITHROMAX 1 GM PACK DIRECTED ZITHROMAX 1 GM PACK 172252 AZITHROMYCIN Inactive CHANTIX STARTING MONTH REBEKAH 0.5 MG X 11 & 1 MG X 42 TABS 0.5mg daily for 3 days , then 0.5mg BID for 4 days, then 1mg BID CHANTIX STARTING MONTH REBEKAH 0.5 MG X 11 & 1 MG X 42 TABS VARENICLINE TARTRATE Inactive ZITHROMAX 1 GM PACK DIRECTED ZITHROMAX 1 GM PACK 029754 AZITHROMYCIN Inactive MOBIC 7.5 MG TABS 1 tablet by mouthonce a day MOBIC 7.5 MG TABS 319957 MELOXICAM Inactive KLONOPIN 0.5 MG TABS 1 TABLET PO PRN KLONOPIN 0.5 MG TABS 507356 CLONAZEPAM Inactive CIPRO 500 MG TAB 1 tablet by mouth twice daily CIPRO 500 MG TAB 155974 CIPROFLOXACIN HCL Inactive AZITHROMYCIN 500 MG TABS 1 PO q day x 6 days AZITHROMYCIN 500 MG TABS 1187972 AZITHROMYCIN Inactive CYCLOBENZAPRINE HCL 10 MG TABS 1 PO q 8 hrs PRN muscle spasm 2012 CYCLOBENZAPRINE HCL 10 MG TABS 542320 CYCLOBENZAPRINE HCL Inactive METFORMIN HCL 500 MG [...] bid prn anxiety. XANAX 0.25 MG TABS 934187 ALPRAZOLAM Inactive LAMISIL AT 1 % CREA apply bid to rash LAMISIL AT 1 % CREA 949356 TERBINAFINE HCL Inactive TOPAMAX 25 MG TABS 1 tab po qhs x 1 week, then take 2 tabs po qhs TOPAMAX 25 MG TABS 202947 TOPIRAMATE Inactive TERBINAFINE HCL 1 % CREA Apply bid to rash TERBINAFINE HCL 1 % CREA 592714 TERBINAFINE HCL Inactive BENZACLIN 1-5 % EXT GEL apply to face BID for acne. BENZACLIN 1-5 % EXT GEL 088282 CLINDAMYCIN PHOS-BENZOYL PEROX Inactive ZITHROMAX 250 MG TAB 2 po today, then 1 po q days 2-5 ZITHROMAX 250 MG TAB 5952706 AZITHROMYCIN Inactive ZITHROMAX 250 MG TAB 2 po today, then 1 po q days 2-5 ZITHROMAX 250 MG TAB 9214251 AZITHROMYCIN Inactive PREDNISONE 20 MG TAB 2 tabs daily for 3 days, 1 tab daily for 3 days, 1/2 tab daily for 2 days PREDNISONE 20 MG TAB 540964 PREDNISONE Inactive PREDNISONE 20 MG TAB 3 tabs daily for 3 days, 2 tab daily for 3 days, 1 tab daily for 2 days, then 1/2 tab dialy for 2 days PREDNISONE 20 MG TAB 254839 PREDNISONE Inactive OMEPRAZOLE 20 MG CPDR 1 tablet by mouth daily OMEPRAZOLE 20 MG CPDR 250798 OMEPRAZOLE Inactive PREDNISONE 20 MG TABS 3 qd x 2d, 2 qd x 2d, 1 qd x 2d, 1/2 qd x 2d PREDNISONE 20 MG TABS 830864 PREDNISONE Inactive TERBINAFINE HCL 250 MG TABS 1 qDay TERBINAFINE HCL 250 MG TABS 684446 TERBINAFINE HCL Inactive DOXYCYCLINE HYCLATE 100 MG CAP 1 cap by mouth twice daily DOXYCYCLINE HYCLATE 100 MG CAP 9354973 DOXYCYCLINE HYCLATE Inactive MEDROL (REBEKAH) 4 MG [...] and acellular pertussis vaccine, adsorbed), booster Boostrix [[id number]] tetanus toxoid, reduced diphtheria toxoid, and acellular pertussis vaccine, adsorbed Vital Signs Date Name Value Unit Range Description blood pressure, diastolic - 8462-4 93 mm[Hg] BP ag[place] blood pressure, systolic - 8480-6 147 mm[Hg] BP sys pulse rate E&M - 8867-4 112 /min Heart rate temperature E&M 98.5 [degF] Body temperature weight E&M - 3141-9 198.5 [lb_av] Weight Measured blood pressure, diastolic - 8462-4 86 mm[Hg] BP [place] blood pressure, systolic - 8480-6 144 mm[Hg] BP sys pulse rate E&M - 8867-4 108 /min Heart rate temperature E&M 98.7 [degF] Body temperature weight E&M - 3141-9 199.5 [lb_av] Weight Measured blood pressure, diastolic - 8462-4 74 mm[Hg] BP [place] blood pressure, systolic - 8480-6 127 mm[Hg] BP sys pulse rate E&M - 8867-4 109 /min Heart rate temperature E&M 97.5 [degF] Body temperature weight E&M - 3141-9 199.5 [lb_av] Weight Measured blood pressure, diastolic - 8462-4 89 mm[Hg] [...] E&M - 3141-9 213 [lb_av] Weight Measured Diagnostic Results Date Name Value Unit Range Description Lab Report: Basic Metabolic Panel, CBC, HGBA1C, MICROALBUMIN - Chemistry sodium, serum 141 mmol/L 991-344 6307/10/27 potassium, serum 4.5 mmol/L 3.5-5.2 chloride, serum 104 mmol/L 98-107 carbon dioxide, venous blood 29.3 mmol/L 21.0-32.0 blood glucose 93 mg/dL 65-110 calcium, serum 9.2 mg/dL 8.5-10.1 urea nitrogen, blood 8 mg/dL 7-18 creatinine, serum 0.70 mg/dL 0.55-1.30 hemoglobin A1C, blood, as % of total hemoglobin 5.2 % 4.3-6.0 albumin/creatinine ratio, urine < 30 mg/g mg/g{creat} 0-29 Lab Report: Basic Metabolic Panel, CBC, HGBA1C, MICROALBUMIN - Hematology leukocyte count, blood 9.0 10^3/MM^3 10*3/mm3 4.6-10.2 erythrocyte (RBC) count 4.84 10^6/MM^3 10*6/mm3 4.04-5.48 hemoglobin, blood 15.4 g/dL 12.0-16.0 hematocrit, blood 44.2 % 36.0-46.0 mean corpuscular volume, RBC 91 fL 80-97 mean corpuscular hemoglobin, RBC 31.7 pg 27.0-31.2 mean corpuscular hemoglobin concentration, RBC 34.8 G/DL % 31.8- 35.4 red blood cell distribution width 14.2 % 11.6-14.8 platelet count 300 10^3/MM^3 10*3/mm3 142-424 Lab Report: Basic Metabolic Panel, CBC, HGBA1C, MICROALBUMIN - Lab microalbumin, urine 10 0-19 Lab Report: HEPATITIS PANEL, ACUTE W/REFLE - Chemistry hepatitis B surface antigen NON-REACTIVE NON-REACTIVE Lab Report: HIV-1/2 Agn/Ritu/29599, Chlamydia/GC APTIMA/50038 - Lab chlamydia DNA probe NOT DETECTED NOT DETECTED Lab Report: HIV-1/2 Agn/Ritu/18288, Chlamydia/GC APTIMA/12627 - Microbiology Neisseria gonorrhoeae DNA probe NOT DETECTED NOT DETECTED Lab Report: [facility] [place] Chemistry human chorionic gonadotropin, urine, qualitative (urine test) Negative Negative Office Visit: Med Check / Labs - Chemistry cholesterol, target level 200 mg/dL LDL target level 100 mg/dL HDL cholesterol, serum, target level 40 mg/dL triglyceride, target level 150 mg/dL Encounters Code Encounter Date Provider Facility CPT-24229 Level 3 Est. 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 Patient 15:20:49 TRUCK SUPERVISOR Law FIGUEROA [facility] CPT-40453 Level 4 Est. Patient 22:41:22 CDT Ian Valdez MD [facility] CPT-88660 Level 3 Est. Patient 17:03:54 CDT Carlos Mccormack MD [facility] CPT-28156 Level 3 Est. Patient 20:15:16 CDT Ian Valdez MD [facility] CPT-47086 Level 3 Est. Patient 13:49:34 CDT Ian Valdez MD [facility] CPT-19066 Level 3 Est. Patient 15:50:27 TRUCK SUPERVISOR Najma Vaughn APRN [facility] CPT-40754 Level 4 Est. Patient 21:20:00 TRUCK SUPERVISOR Ian Valdez MD [facility] CPT-70721 Level 3 Est. Patient 15:32:41 TRUCK SUPERVISOR Juan Smith MD [facility] CPT-55275 Level 3 Est. Patient 14:45:01 CDT Eva Ferrara MD PhD [facility] CPT-47248 Level 3 Est. Patient 14:54:10 CDT Ian Valdez MD [facility] CPT-86298 Level 4 Est. Patient 20:36:52 CDT Ian Valdez MD [facility]-62427 Level 4 Est. Patient 11:14:30 TRUCK SUPERVISOR Ian Valdez MD [facility]-37679 Level 3 Est. Patient 19:08:34 TRUCK SUPERVISOR Ian Valdez MD [facility] CPT-64175 Level 3 Est. Patient 13:17:39 TRUCK SUPERVISOR Ian Valdez MD [facility]-78742 Level 4 Est. Patient 18:56:10 CDT Ian Valdez MD [facility]-72588 Level 4 Est. Patient 16:55:56 CDT Ian Valdez MD [facility]-40535 Level 3 Est. Patient 11:27:07 CDT Ian Valdez MD [facility] CPT-06826 Level 3 Est. Patient 15:17:44 CDT Law Rosas [facility] CPT-65001 Level 4 Est. Patient 15:13:53 CDT Wellington Muniz [facility] CPT-18828 Level 3 Est. Patient 14:25:12 TRUCK SUPERVISOR Ian Valdez MD [facility]-54796 Level 3 Est. Patient 10:24:46 CDT Ian Valdez MD [facility]-23495 Level 3 Est. Patient 15:34:19 CDT Ian Valdez MD [facility]-68034 Level 3 Est. Patient 14:22:41 CDT Ian Valdez MD [facility]-20756 Level 3 Est. Patient 15:07:22 TRUCK SUPERVISOR Ian Valdez MD [facility] CPT-78318 Level 3 New Patient 09:06:43 TRUCK SUPERVISOR Ian Valdez MD [facility] CPT-21550 Level 3 Est. Patient 15:09:00 TRUCK SUPERVISOR Ian Valdez MD [facility] Procedures Code Procedure Name Date Entry Date Standard Description CPT-J2930 Solu Medrol 125 mg (Methyl Prednisolone Sodium Succinate) 09:17:43 TRUCK SUPERVISOR CPT-34936 Abx/Therapy Injection 09:17:43 TRUCK SUPERVISOR CPT-J2930 Solu Medrol 125 mg (Methyl Prednisolone Sodium Succinate) 13:19:04 TRUCK SUPERVISOR CPT-83511 Abx/Therapy Injection 13:19:04 TRUCK SUPERVISOR CPT-J2930 Solu Medrol 125 mg (Methyl Prednisolone Sodium Succinate) 11:15:53 TRUCK SUPERVISOR CPT-J1050 Depo Provera 150 mg (Medroxyprogesterone) 13:45:44 CDT CPT-26529 Abx/Therapy Injection 13:45:44 CDT CPT-J1050 Depo Provera 150 mg (Medroxyprogesterone) 15:27:21 CDT CPT-30114 Abx/Therapy Injection 15:27:21 CDT CPT-92047 Abd compl w upright 17:11:01 CDT CPT-OV Office Visit 16:24:22 CDT CPT-OV Office Visit 15:15:29 TRUCK SUPERVISOR CPT-OV Office Visit 15:49:26 TRUCK SUPERVISOR CPT-J1885 Toradol 60 mg (Ketorolac) 15:37:32 CDT CPT-85058 Abx/Therapy Injection 15:37:32 CDT CPT-J1885 Toradol 60 mg (Ketorolac) 14:45:01 CDT CPT-OV Office Visit 15:19:52 CDT CPT-OV Office Visit 10:41:01 CDT CPT-30364 Core biop breast wo imaging 16:50:06 CDT CPT-OV Office Visit 16:50:05 CDT CPT-35948 UHCG (floor use only) 13:39:36 CDT CPT-95328 Nexplanon Placement 10:11:48 CDT CPT-J7307 Nexplanon (Implant) 10:11:48 CDT CPT-OV Office Visit 09:54:18 CDT CPT-87822 EKG Trac and Interp 16:50:19 CDT CPT-43585 Venipuncture Draw Fee 15:06:08 CDT CPT-J2930 Solu Medrol 125 mg (Methyl Prednisolone Sodium Succinate) 12:44:46 CDT CPT-J1055 Depo Provera 150 mg (Medroxyprogesterone) 12:44:46 CDT CPT-92015 Abx/Therapy Injection 12:44:46 CDT CPT-J1055 Depo Provera 150 mg (Medroxyprogesterone) 14:28:41 CDT CPT-J2930 Solu Medrol 125 mg (Methyl Prednisolone Sodium Succinate) 14:22:41 CDT CPT-74901 Administration single or combination vaccine inc oral 10 :08:06 CDT CPT-64990 Tdap 10:08:06 CDT CPT-G0402 Wlcm To Medicare Ex 22:17:30 CDT CPT-13962 Venipuncture Draw Fee 10:33:07 TRUCK SUPERVISOR CPT-10849 Venipuncture Draw Fee 10:17:37 TRUCK SUPERVISOR CPT-G0403 EKG Wlc To Medicare 22:17:30 CDT
--- OUTSIDE RECORDS SUMMARY | 2018-07-17 20:57 | XMS REPORT | Clinical Summary ---
Author Author Admin, ARIAN Organization [facility] Address Unknown Phone Unavailable Allergies, Adverse Reactions, [...] Generic Name NDC Status Provider Patient Instruction MELOXICAM 15 MG TABS 1 po q day for pain with food MELOXICAM 59099890281 Active Ian Valdez MD Active DOXYCYCLINE HYCLATE 100 MG CAP 1 cap by mouth twice daily DOXYCYCLINE HYCLATE 11121912189 No Longer Active Najma Vaughn APRN Active MULTIVITAMINS CAPS 1 tablet daily MULTIPLE VITAMIN 77690100919 Active Juan Smith MD Active CYCLOBENZAPRINE HCL 10 MG TABS 1/2 - 1 tab by mouth three times daily if needed for spasms/pain CYCLOBENZAPRINE HCL 70145949402 Active Ian Valdez MD Active GLUCOPHAGE 500 MG TABS 1 tab BID with morning and night meals METFORMIN HCL 36502710869 Active Eva Ferrara MD PhD Active PROGESTERONE MICRONIZED 100 MG CAPS 2 caps daily day 16 thru 25 of cycle 2013 PROGESTERONE MICRONIZED 41047423920 Active Eva Ferrara MD PhD Active TERBINAFINE HCL 1 % CREA Apply bid to rash TERBINAFINE HCL 22933833918 No Longer Active Eva Ferrara MD PhD Active TOPAMAX 25 MG TABS 1 tab po qhs x 1 week, then take 2 tabs po qhs TOPIRAMATE 48233285128 No Longer Active Thom Gilbert MD Active ULTRAM 50 MG TAB take 1 tab po q6hrs prn pain TRAMADOL HCL 31924170445 Active Ian Valdez MD Active LAMISIL AT 1 % CREA apply bid to rash TERBINAFINE HCL 43600577441 No Longer Active Thom Gilbert MD Active TERBINAFINE HCL 250 MG TABS 1 qDay TERBINAFINE HCL 43967849997 No Longer Active Ian Valdez MD Active XANAX 0.25 MG TABS take 1 tab po bid prn anxiety. ALPRAZOLAM 68169450366 No Longer Active Ian Valdez MD Active FISH OIL 1000 MG CAPS 2 caps PO once daily at bedtime OMEGA-3 FATTY ACIDS 43192548105 No Longer Active Ian Valdez MD Active KLOR-CON M20 20 MEQ CR-TABS take 1 tab po qday with lasix POTASSIUM CHLORIDE GALILEO CR 82912175362 Active Ian Valdez MD Active LASIX 20 MG TAB 1 tablet by mouth daily prn swelling FUROSEMIDE 91303620947 Active Ian Valdez MD Active FLONASE 50 MCG/ACT SUSP 2 puffs in each nostril once daily at bedtime FLUTICASONE PROPIONATE 72036337247 Active Ian Valdez MD Active CVS MELATONIN 3 MG TABS 2 tabs PO at bedtime MELATONIN 64897060181 Active Ian Valdez MD Active PULMICORT FLEXHALER 180 MCG/ACT AEPB 2 INH BID BUDESONIDE 02970846099 No Longer Active Ian Valdez MD Active METFORMIN HCL 500 MG TB24 1 TAB PO Q HS METFORMIN HCL 67474989843 No Longer Active Ian Valdez MD Active CYCLOBENZAPRINE HCL 10 MG TABS 1 PO q 8 hrs PRN muscle spasm 2012 CYCLOBENZAPRINE HCL 72448520376 No Longer Active Ian Valdez MD Active AZITHROMYCIN 500 MG TABS 1 PO q day x 6 days AZITHROMYCIN 56220222549 No Longer Active Ian Valdez MD Active CIPRO 500 MG TAB 1 tablet by mouth twice daily CIPROFLOXACIN HCL 65367937896 No Longer Active Ian Valdez MD Active PREDNISONE 20 MG TABS 3 qd x 2d, 2 qd x 2d, 1 qd x 2d, 1/2 qd x 2d PREDNISONE 03404143250 No Longer Active Law FIGUEROA Active CELEXA 40 MG TABS 2 PO DAILY CITALOPRAM HYDROBROMIDE 66185997457 Active Ian Valdez MD Active OMEPRAZOLE 20 MG CPDR 1 tablet by mouth daily OMEPRAZOLE 04976738792 No Longer Active [place] FIGUEROA Active KLONOPIN 0.5 MG TABS 1 TABLET PO PRN CLONAZEPAM 78487747525 No Longer Active [place] FIGUEROA Active MOBIC 7.5 MG TABS 1 tablet by mouthonce a day MELOXICAM 34058830031 No Longer Active [place] FIGUEROA Active ZITHROMAX 1 GM PACK DIRECTED AZITHROMYCIN 08750481427 No Longer Active Ian Valdez MD Active ALBUTEROL SULFATE 0.083 % NEBU SOLN one vial per nebulizer every 4-6 hours as needed ALBUTEROL SULFATE 78636068220 Active Ian Valdez MD Active CHANTIX STARTING MONTH REBEKAH 0.5 MG X 11 & 1 MG X 42 TABS 0.5mg daily for 3 days , then 0.5mg BID for 4 days, then 1mg BID VARENICLINE TARTRATE 91852388406 No Longer Active Ian Valdez MD Active ZITHROMAX 1 GM PACK DIRECTED AZITHROMYCIN 83461754771 No Longer Active Ian Valdez MD Active AURALGAN 1.4-5.5 % SOLN BENZOCAINE-ANTIPYRINE 44360402365 No Longer Active Ian Valdez MD Active PREDNISONE 20 MG TAB 3 tabs daily for 3 days, 2 tab daily for 3 days, 1 tab daily for 2 days, then 1/2 tab dialy for 2 days PREDNISONE 76586889783 No Longer Active Ian Valdez MD Active SIMVASTATIN 40 MG TABS 1 TABLET PO Q HS SIMVASTATIN 00954666097 Active Ian Valdez MD Active SIMVASTATIN 80 MG TABS Take one by mouth daily SIMVASTATIN 35384304943 No Longer Active Ian Valdez MD Active PREDNISONE 20 MG TAB 2 tabs daily for 3 days, 1 tab daily for 3 days, 1/2 tab daily for 2 days PREDNISONE 78832064038 No Longer Active Ian Valdez MD Active ZITHROMAX 250 MG TAB 2 po today, then 1 po q days 2-5 AZITHROMYCIN 93243658162 No Longer Active Ian Valdez MD Active TRAZODONE HCL 100 MG TABS 2 TABS PO Q HS TRAZODONE HCL 97283662093 Active Ian Valdez MD Active ZITHROMAX 250 MG TAB 2 po today, then 1 po q days 2-5 AZITHROMYCIN 69325919423 No Longer Active Ian Valdez MD Active SIMVASTATIN 80 MG TABS Take one by mouth daily SIMVASTATIN 80 MG TABS 652210 SIMVASTATIN Inactive AURALGAN 1.4-5.5 % SOLN AURALGAN 1.4-5.5 % SOLN BENZOCAINE-ANTIPYRINE Inactive ZITHROMAX 1 GM PACK DIRECTED ZITHROMAX 1 GM PACK 418472 AZITHROMYCIN Inactive CHANTIX STARTING MONTH REBEKAH 0.5 MG X 11 & 1 MG X 42 TABS 0.5mg daily for 3 days , then 0.5mg BID for 4 days, then 1mg BID CHANTIX STARTING MONTH REBEKAH 0.5 MG X 11 & 1 MG X 42 TABS VARENICLINE TARTRATE Inactive ZITHROMAX 1 GM PACK DIRECTED ZITHROMAX 1 GM PACK 333550 AZITHROMYCIN Inactive MOBIC 7.5 MG TABS 1 tablet by mouthonce a day MOBIC 7.5 MG TABS 637266 MELOXICAM Inactive KLONOPIN 0.5 MG TABS 1 TABLET PO PRN KLONOPIN 0.5 MG TABS 387492 CLONAZEPAM Inactive CIPRO 500 MG TAB 1 tablet by mouth twice daily CIPRO 500 MG TAB 058434 CIPROFLOXACIN HCL Inactive AZITHROMYCIN 500 MG TABS 1 PO q day x 6 days AZITHROMYCIN 500 MG TABS 6489081 AZITHROMYCIN Inactive CYCLOBENZAPRINE HCL 10 MG TABS 1 PO q 8 hrs PRN muscle spasm 2012 CYCLOBENZAPRINE HCL 10 MG TABS 592157 CYCLOBENZAPRINE HCL Inactive METFORMIN HCL 500 MG [...] bid prn anxiety. XANAX 0.25 MG TABS 233199 ALPRAZOLAM Inactive LAMISIL AT 1 % CREA apply bid to rash LAMISIL AT 1 % CREA 229584 TERBINAFINE HCL Inactive TOPAMAX 25 MG TABS 1 tab po qhs x 1 week, then take 2 tabs po qhs TOPAMAX 25 MG TABS 442524 TOPIRAMATE Inactive TERBINAFINE HCL 1 % CREA Apply bid to rash TERBINAFINE HCL 1 % CREA 212145 TERBINAFINE HCL Inactive ZITHROMAX 250 MG TAB 2 po today, then 1 po q days 2-5 ZITHROMAX 250 MG TAB 4248239 AZITHROMYCIN Inactive ZITHROMAX 250 MG TAB 2 po today, then 1 po q days 2-5 ZITHROMAX 250 MG TAB 1405696 AZITHROMYCIN Inactive PREDNISONE 20 MG TAB 2 tabs daily for 3 days, 1 tab daily for 3 days, 1/2 tab daily for 2 days PREDNISONE 20 MG TAB 542724 PREDNISONE Inactive PREDNISONE 20 MG TAB 3 tabs daily for 3 days, 2 tab daily for 3 days, 1 tab daily for 2 days, then 1/2 tab dialy for 2 days PREDNISONE 20 MG TAB 534533 PREDNISONE Inactive OMEPRAZOLE 20 MG CPDR 1 tablet by mouth daily OMEPRAZOLE 20 MG CPDR 756383 OMEPRAZOLE Inactive PREDNISONE 20 MG TABS 3 qd x 2d, 2 qd x 2d, 1 qd x 2d, 1/2 qd x 2d PREDNISONE 20 MG TABS 607549 PREDNISONE Inactive TERBINAFINE HCL 250 MG TABS 1 qDay TERBINAFINE HCL 250 MG TABS 261128 TERBINAFINE HCL Inactive DOXYCYCLINE HYCLATE 100 MG CAP 1 cap by mouth twice daily DOXYCYCLINE HYCLATE 100 MG CAP 262358 DOXYCYCLINE HYCLATE Inactive Advance Directives Directive Description Start Date NO HEROIC MEASURES Immunizations Vaccine Administration Date Value Standard Description Boostrix (Tetanus toxoid, reduced diphtheria toxoid and acellular pertussis vaccine, adsorbed), booster Boostrix [AJH033] tetanus toxoid, reduced diphtheria toxoid, and acellular [...] 1.44 m[iU]/mL 0.36-3.74 cholesterol, serum 144 mg/dL 204-888 7455/11/19 triglyceride, serum, fasting 172 mg/dL 30-200 HDL cholesterol, serum 30 mg/dL 32-96 LDL cholesterol, serum 80 mg/dL 0-130 sodium, serum 137 mmol/L 167-775 1857/11/19 potassium, serum 4.1 mmol/L 3.5-5.2 chloride, serum [...] mg/dL Encounters Code Encounter Date Provider Facility CPT-69368 Level 3 Est. Patient 20:15:16 CDT Ian Valdez MD [facility] CPT-08403 Level 3 Est. Patient 13:49:34 CDT Ian Valdez MD [facility] CPT-13871 Level 3 Est. Patient 15:50:27 BLOWER INSTALLER Najma Vaughn APRN [facility] CPT-65337 Level 4 Est. Patient 21:20:00 BLOWER INSTALLER Ian Valdez MD [facility] CPT-50986 Level 3 Est. Patient 15:32:41 BLOWER INSTALLER Juan Smith MD [facility] CPT-48670 Level 3 Est. Patient 14:45:01 CDT Eva Ferrara MD PhD [facility] CPT-51089 Level 3 Est. Patient 14:54:10 CDT Ian Valdez MD [facility] CPT-36525 Level 4 Est. Patient 20:36:52 CDT Ian Valdez MD [facility] CPT-83329 Level 4 Est. Patient 11:14:30 BLOWER INSTALLER Ian Valdez MD [place]-08788 Level 3 Est. Patient 19:08:34 BLOWER INSTALLER Ian Valdez MD [facility] CPT-85746 Level 3 Est. Patient 13:17:39 BLOWER INSTALLER Ian Valdez MD [facility]-91699 Level 4 Est. Patient 18:56:10 CDT Ian Valdez MD [facility]-37520 Level 4 Est. Patient 16:55:56 CDT Ian Valdez MD [facility]-36445 Level 3 Est. Patient 11:27:07 CDT Ian Valdez MD [facility] CPT-40751 Level 3 Est. Patient 15:17:44 CDT Law Rosas [facility] CPT-10512 Level 4 Est. Patient 15:13:53 CDT Wellington Muniz [facility] CPT-16247 Level 3 Est. Patient 14:25:12 BLOWER INSTALLER Ian Valdez MD [facility] CPT-71094 Level 3 Est. Patient 10:24:46 CDT Ian Valdez MD [facility] CPT-88603 Level 3 Est. Patient 15:34:19 CDT Ian Valdez MD [facility]-96318 Level 3 Est. Patient 14:22:41 CDT Ian Valdez MD [facility] CPT-20503 Level 3 Est. Patient 15:07:22 BLOWER INSTALLER Ian Valdez MD [facility] CPT-40235 Level 3 New Patient 09:06:43 BLOWER INSTALLER Ian Valdez MD [facility] CPT-96963 Level 3 Est. Patient 15:09:00 BLOWER INSTALLER Ian Valdez MD [facility] Procedures Code Procedure Name Date Entry Date Standard Description CPT-OV Office Visit 16:24:22 CDT CPT-OV Office Visit 15:15:29 BLOWER INSTALLER CPT-OV Office Visit 15:49:26 BLOWER INSTALLER CPT-J1885 Toradol 60 mg (Ketorolac) 15:37:32 CDT CPT-51309 Abx/Therapy Injection 15:37:32 CDT CPT-J1885 Toradol 60 mg (Ketorolac) 14:45:01 CDT CPT-OV Office Visit 15:19:52 CDT CPT-OV Office Visit 10:41:01 CDT CPT-65429 Core biop breast wo imaging 16:50:06 CDT CPT-OV Office Visit 16:50:05 CDT CPT-51154 UHCG (floor use only) 13:39:36 CDT CPT-56187 Nexplanon Placement 10:11:48 CDT CPT-J7307 Nexplanon (Implant) 10:11:48 CDT CPT-OV Office Visit 09:54:18 CDT CPT-29989 EKG Trac and Interp 16:50:19 CDT CPT-23510 Venipuncture Draw Fee 15:06:08 CDT CPT-J2930 Solu Medrol 125 mg (Methyl Prednisolone Sodium Succinate) 12:44:46 CDT CPT-J1055 Depo Provera 150 mg (Medroxyprogesterone) 12:44:46 CDT CPT-94989 Abx/Therapy Injection 12:44:46 CDT CPT-J1055 Depo Provera 150 mg (Medroxyprogesterone) 14:28:41 CDT CPT-J2930 Solu Medrol 125 mg (Methyl Prednisolone Sodium Succinate) 14:22:41 CDT CPT-51301 Administration single or combination vaccine inc oral 10 :08:06 CDT CPT-22184 Tdap 10:08:06 CDT CPT-G0402 Wlcm To Medicare Ex 22:17:30 CDT CPT-62888 Venipuncture Draw Fee 10:33:07 BLOWER INSTALLER CPT-09389 Venipuncture Draw Fee 10:17:37 BLOWER INSTALLER CPT-G0403 EKG Wlc To Medicare 22:17:30 CDT
--- OUTSIDE RECORDS SUMMARY | 2018-07-17 20:58 | XMS REPORT | Clinical Summary ---
Author Author Admin, ARIAN Organization [facility] Address Unknown Phone Unavailable Allergies, Adverse [...] in family FH DIABETES V18.0 Resolved Ian aVldez MD Family history of diabetes mellitus DIABETES-TYPE 2 250.00 Active Ian Valdez MD Diabetes mellitus without mention of complication, type II or unspecified type, not stated as uncontrolled HYPERLIPIDEMIA 272.4 Active Ian Valdez MD Other and unspecified hyperlipidemia BIPOLAR DISORDER 296.7 Active Ina Valdez MD Bipolar I disorder, most recent [...] PO q 8 hrs PRN pain OXYCODONE-ACETAMINOPHEN 73672714844 Active Law FIGUEROA Active MINOCYCLINE HCL 100 MG CAP 1 TAB PO DAILY MINOCYCLINE HCL 06340141344 Active Herminia Bear Active BENZACLIN 1-5 % EXT GEL apply to face BID for acne. CLINDAMYCIN PHOS-BENZOYL PEROX 81743074317 No Longer Active Herminia Bear Active HYDROCODONE-ACETAMINOPHEN 5-325 MG TABS 1-2 tabs by mouth every 4- 6 hours as needed HYDROCODONE-ACETAMINOPHEN 36990318493 Active Ian Valdez MD Active CLINDAMYCIN HCL 150 MG CAPS Take 2 capsules by mouth every 8hrs for 10 days CLINDAMYCIN HCL 36165446548 Active Ian Valdez MD Active DICLOFENAC SODIUM 50 MG TBEC 1 tablet by mouth three times daily as needed DICLOFENAC SODIUM 39644176934 Active Addis William PARTS LISTER Active MAGNESIUM CITRATE 1.745 GM/30ML ORAL SOLN 150ml po BID PRN Constipation 10/07 MAGNESIUM CITRATE 20584521230 Active Ian Valdez MD Active BUSPIRONE HCL 7.5 MG ORAL TABS 1 TAB PO BID PRN ANXIETY BUSPIRONE HCL 10345025070 Active Ian Valdez MD Active MEDROL (REBEKAH) 4 MG TABS 6 tabs on day 1, 5 tabs on day 2, 4 tabs on day 3, 3 tabs on day 4, 2 tabs on day 5, 1 tab on day 6 METHYLPREDNISOLONE 49897962575 No Longer Active Herminia Bear Active MELOXICAM 15 MG TABS 1 po q day for pain with food MELOXICAM 08405562827 Active Ian Valdez MD Active DOXYCYCLINE HYCLATE 100 MG CAP 1 cap by mouth twice daily DOXYCYCLINE HYCLATE 53662889372 No Longer Active Najma Vaughn APRN Active MULTIVITAMINS CAPS 1 tablet daily MULTIPLE VITAMIN 78680405185 Active Juan Smith MD Active CYCLOBENZAPRINE HCL 10 MG TABS 1/2 - 1 tab by mouth three times daily if needed for spasms/pain CYCLOBENZAPRINE HCL 96688041139 Active Ian Valdez MD Active GLUCOPHAGE 500 MG TABS 1 tab BID with morning and night meals METFORMIN HCL 68248403469 Active Eva Ferrara MD PhD Active PROGESTERONE MICRONIZED 100 MG CAPS 2 caps daily day 16 thru 25 of cycle 2013 PROGESTERONE MICRONIZED 87826634147 Active Eva Ferrara MD PhD Active TERBINAFINE HCL 1 % CREA Apply bid to rash TERBINAFINE HCL 85357305593 No Longer Active Eva Ferrara MD PhD Active TOPAMAX 25 MG TABS 1 tab po qhs x 1 week, then take 2 tabs po qhs TOPIRAMATE 99386861026 No Longer Active Thom Gilbert MD Active ULTRAM 50 MG TAB take 1 tab po q6hrs prn pain TRAMADOL HCL 52503777447 Active Addis William PARTS LISTER Active LAMISIL AT 1 % CREA apply bid to rash TERBINAFINE HCL 26438987416 No Longer Active Thom Gilbert MD Active TERBINAFINE HCL 250 MG TABS 1 qDay TERBINAFINE HCL 65708823252 No Longer Active Ian Valdez MD Active XANAX 0.25 MG TABS take 1 tab po bid prn anxiety. ALPRAZOLAM 30032391854 No Longer Active Ian Valdez MD Active FISH OIL 1000 MG CAPS 2 caps PO once daily at bedtime OMEGA-3 FATTY ACIDS 08061325387 No Longer Active Ian Valdez MD Active KLOR-CON M20 20 MEQ CR-TABS take 1 tab po qday with lasix POTASSIUM CHLORIDE GALILEO CR 52246771371 Active Ian Valdez MD Active LASIX 20 MG TAB 1 tablet by mouth daily prn swelling FUROSEMIDE 95759154625 Active Ian Valdez MD Active FLONASE 50 MCG/ACT SUSP 2 puffs in each nostril once daily at bedtime FLUTICASONE PROPIONATE 46902387605 Active Ian Valdez MD Active [facility] MELATONIN 3 MG TABS 2 tabs PO at bedtime MELATONIN 10546224062 Active Ian Valdez MD Active PULMICORT FLEXHALER 180 MCG/ACT AEPB 2 INH BID BUDESONIDE 74452093719 No Longer Active Ian Valdez MD Active METFORMIN HCL 500 MG TB24 1 TAB PO Q HS METFORMIN HCL 04279301702 No Longer Active Ian Valdez MD Active CYCLOBENZAPRINE HCL 10 MG TABS 1 PO q 8 hrs PRN muscle spasm 2012 CYCLOBENZAPRINE HCL 45052202148 No Longer Active Ian Valdez MD Active AZITHROMYCIN 500 MG TABS 1 PO q day x 6 days AZITHROMYCIN 54221963612 No Longer Active Ian Valdez MD Active CIPRO 500 MG TAB 1 tablet by mouth twice daily CIPROFLOXACIN HCL 87703008164 No Longer Active Ian Valdez MD Active PREDNISONE 20 MG TABS 3 qd x 2d, 2 qd x 2d, 1 qd x 2d, 1/2 qd x 2d PREDNISONE 51761486463 No Longer Active Law FIGUEROA Active CELEXA 40 MG TABS 2 PO DAILY CITALOPRAM HYDROBROMIDE 77978889042 Active Ian Valdez MD Active OMEPRAZOLE 20 MG CPDR 1 tablet by mouth daily OMEPRAZOLE 30572188762 No Longer Active Wellington FIGUEROA Active KLONOPIN 0.5 MG TABS 1 TABLET PO PRN CLONAZEPAM 71692162635 No Longer Active Wellington FIGUEROA Active MOBIC 7.5 MG TABS 1 tablet by mouthonce a day MELOXICAM 11211816651 No Longer Active [place] FIGUEROA Active ZITHROMAX 1 GM PACK DIRECTED AZITHROMYCIN 81438996026 No Longer Active Ian Valdez MD Active ALBUTEROL SULFATE 0.083 % NEBU SOLN one vial per nebulizer every 4-6 hours as needed ALBUTEROL SULFATE 11604147125 Active Ian Valdez MD Active CHANTIX STARTING MONTH REBEKAH 0.5 MG X 11 & 1 MG X 42 TABS 0.5mg daily for 3 days , then 0.5mg BID for 4 days, then 1mg BID VARENICLINE TARTRATE 11000025076 No Longer Active Ian Valdez MD Active ZITHROMAX 1 GM PACK DIRECTED AZITHROMYCIN 38549324763 No Longer Active Ian Valdez MD Active AURALGAN 1.4-5.5 % SOLN BENZOCAINE-ANTIPYRINE 04483021084 No Longer Active Ian Valdez MD Active PREDNISONE 20 MG TAB 3 tabs daily for 3 days, 2 tab daily for 3 days, 1 tab daily for 2 days, then 1/2 tab dialy for 2 days PREDNISONE 74648398443 No Longer Active Ian Valdez MD Active SIMVASTATIN 40 MG TABS 1 TABLET PO Q HS SIMVASTATIN 62552720438 Active Ian Valdez MD Active SIMVASTATIN 80 MG TABS Take one by mouth daily SIMVASTATIN 64231566584 No Longer Active Ian Valdez MD Active PREDNISONE 20 MG TAB 2 tabs daily for 3 days, 1 tab daily for 3 days, 1/2 tab daily for 2 days PREDNISONE 49861740867 No Longer Active Ian Valdez MD Active ZITHROMAX 250 MG TAB 2 po today, then 1 po q days 2-5 AZITHROMYCIN 09439905164 No Longer Active Ian Valdez MD Active TRAZODONE HCL 100 MG TABS 2 TABS PO Q HS TRAZODONE HCL 62581856194 Active Ian Valdez MD Active ZITHROMAX 250 MG TAB 2 po today, then 1 po q days 2-5 AZITHROMYCIN 43374139697 No Longer Active Ian Valdez MD Active SIMVASTATIN 80 MG TABS Take one by mouth daily SIMVASTATIN 80 MG TABS 355400 SIMVASTATIN Inactive AURALGAN 1.4-5.5 % SOLN AURALGAN 1.4-5.5 % SOLN BENZOCAINE-ANTIPYRINE Inactive ZITHROMAX 1 GM PACK DIRECTED ZITHROMAX 1 GM PACK 755311 AZITHROMYCIN Inactive CHANTIX STARTING MONTH REBEKAH 0.5 MG X 11 & 1 MG X 42 TABS 0.5mg daily for 3 days , then 0.5mg BID for 4 days, then 1mg BID CHANTIX STARTING MONTH REBEKAH 0.5 MG X 11 & 1 MG X 42 TABS VARENICLINE TARTRATE Inactive ZITHROMAX 1 GM PACK DIRECTED ZITHROMAX 1 GM PACK 880610 AZITHROMYCIN Inactive MOBIC 7.5 MG TABS 1 tablet by mouthonce a day MOBIC 7.5 MG TABS 067800 MELOXICAM Inactive KLONOPIN 0.5 MG TABS 1 TABLET PO PRN KLONOPIN 0.5 MG TABS 894324 CLONAZEPAM Inactive CIPRO 500 MG TAB 1 tablet by mouth twice daily CIPRO 500 MG TAB 579775 CIPROFLOXACIN HCL Inactive AZITHROMYCIN 500 MG TABS 1 PO q day x 6 days AZITHROMYCIN 500 MG TABS 0793144 AZITHROMYCIN Inactive CYCLOBENZAPRINE HCL 10 MG TABS 1 PO q 8 hrs PRN muscle spasm 2012 CYCLOBENZAPRINE HCL 10 MG TABS 659689 CYCLOBENZAPRINE HCL Inactive METFORMIN HCL 500 MG [...] bid prn anxiety. XANAX 0.25 MG TABS 808514 ALPRAZOLAM Inactive LAMISIL AT 1 % CREA apply bid to rash LAMISIL AT 1 % CREA 556438 TERBINAFINE HCL Inactive TOPAMAX 25 MG TABS 1 tab po qhs x 1 week, then take 2 tabs po qhs TOPAMAX 25 MG TABS 475737 TOPIRAMATE Inactive TERBINAFINE HCL 1 % CREA Apply bid to rash TERBINAFINE HCL 1 % CREA 105691 TERBINAFINE HCL Inactive BENZACLIN 1-5 % EXT GEL apply to face BID for acne. BENZACLIN 1-5 % EXT GEL 121834 CLINDAMYCIN PHOS-BENZOYL PEROX Inactive ZITHROMAX 250 MG TAB 2 po today, then 1 po q days 2-5 ZITHROMAX 250 MG TAB 0368960 AZITHROMYCIN Inactive ZITHROMAX 250 MG TAB 2 po today, then 1 po q days 2-5 ZITHROMAX 250 MG TAB 2932267 AZITHROMYCIN Inactive PREDNISONE 20 MG TAB 2 tabs daily for 3 days, 1 tab daily for 3 days, 1/2 tab daily for 2 days PREDNISONE 20 MG TAB 913687 PREDNISONE Inactive PREDNISONE 20 MG TAB 3 tabs daily for 3 days, 2 tab daily for 3 days, 1 tab daily for 2 days, then 1/2 tab dialy for 2 days PREDNISONE 20 MG TAB 659229 PREDNISONE Inactive OMEPRAZOLE 20 MG CPDR 1 tablet by mouth daily OMEPRAZOLE 20 MG CPDR 572201 OMEPRAZOLE Inactive PREDNISONE 20 MG TABS 3 qd x 2d, 2 qd x 2d, 1 qd x 2d, 1/2 qd x 2d PREDNISONE 20 MG TABS 335706 PREDNISONE Inactive TERBINAFINE HCL 250 MG TABS 1 qDay TERBINAFINE HCL 250 MG TABS 887192 TERBINAFINE HCL Inactive DOXYCYCLINE HYCLATE 100 MG CAP 1 cap by mouth twice daily DOXYCYCLINE HYCLATE 100 MG CAP 0952241 DOXYCYCLINE HYCLATE Inactive MEDROL (REBEKAH) 4 MG [...] and acellular pertussis vaccine, adsorbed), booster Boostrix [UNQ258] tetanus toxoid, reduced diphtheria toxoid, and acellular [...] MICROALBUMIN - Chemistry sodium, serum 141 mmol/L 610-383 0931/10/27 potassium, serum 4.5 mmol/L 3.5-5.2 chloride, serum [...] surface antigen NON-REACTIVE NON-REACTIVE Lab Report: HIV-1/2 Agn/Ritu/28291, Chlamydia/GC APTIMA/67350 - Lab chlamydia DNA probe NOT DETECTED NOT DETECTED Lab Report: HIV-1/2 Agn/Ritu/64654, Chlamydia/GC APTIMA/14082 - Microbiology Neisseria gonorrhoeae DNA probe NOT DETECTED NOT DETECTED Lab Report: TONY INFLUENZA A/B - Toxicology rapid flu test Negative Negative;Positive [place] Report[place] [facility] [place] human chorionic gonadotropin, urine, qualitative (urine test) Negative Negative Office Visit: Med Check / Labs - Chemistry cholesterol, target level 200 mg/dL LDL target level 100 mg/dL HDL cholesterol, serum, target level 40 mg/dL triglyceride, target level 150 mg/dL Encounters Code Encounter Date Provider Facility CPT-26086 Level 3 Est. Patient 11:15:53 [place] MAN Ian Valdez MD [facility] CPT-68308 Level 3 Est. Patient 15:20:49 [place] MAN Law FIGUEROA [facility] CPT-18955 Level 4 Est. Patient 22:41:22 CDT Ian Valdez MD [facility] CPT-87131 Level 3 Est. Patient 17:03:54 CDT Carlos Mccormack MD [facility] CPT-45567 Level 3 Est. Patient 20:15:16 CDT Ian Valdez MD [facility] CPT-09831 Level 3 Est. Patient 13:49:34 CDT Ian Valdez MD [facility] CPT-95851 Level 3 Est. Patient 15:50:27 [place] Najma Vaughn SAMI [facility] CPT-48257 Level 4 Est. Patient 21:20:00 [place] Ian Valdez MD [facility]-93310 Level 3 Est. Patient 15:32:41 [place] Juan Smith MD [facility]-48031 Level 3 Est. Patient 14:45:01 CDT Eva Ferrara MD PhD [facility]-01124 Level 3 Est. Patient 14:54:10 CDT Ian Valdez MD [facility]-41100 Level 4 Est. Patient 20:36:52 CDT Ian Valdez MD [facility]-43130 Level 4 Est. Patient 11:14:30 [place] Ian Valdez MD [facility]-23083 Level 3 Est. Patient 19:08:34 [place] MAN Ian Valdez MD [facility] CPT-19722 Level 3 Est. Patient 13:17:39 [place] MAN Ian Valdez MD [facility]-64001 Level 4 Est. Patient 18:56:10 CDT Ian Valdez MD [facility]-92420 Level 4 Est. Patient 16:55:56 CDT Ian Valdez MD [facility]-37038 Level 3 Est. Patient 11:27:07 CDT Ian Valdez MD [facility]-23356 Level 3 Est. Patient 15:17:44 CDT Law Rosas [facility]-60758 Level 4 Est. Patient 15:13:53 CDT Wellington Muniz [facility]-22999 Level 3 Est. Patient 14:25:12 [place] MAN Ian Valdez MD [facility] CPT-48442 Level 3 Est. Patient 10:24:46 CDT Ian Valdez MD [facility] CPT-40919 Level 3 Est. Patient 15:34:19 CDT Ian Valdez MD [facility] CPT-11179 Level 3 Est. Patient 14:22:41 CDT Ian Valdez MD [facility] CPT-70586 Level 3 Est. Patient 15:07:22 [place] MAN Ian Valdez MD [facility] CPT-18761 Level 3 New Patient 09:06:43 [place] MAN Ian Valdez MD [facility] CPT-83705 Level 3 Est. Patient 15:09:00 [place] Ian Valdez MD [facility] Procedures Code Procedure Name Date Entry Date Standard Description CPT-J2930 Solu Medrol 125 mg (Methyl Prednisolone Sodium Succinate) 09:17:43 [place] MAN CPT-46784 Abx/Therapy Injection 09:17:43 [place] MAN CPT-J2930 Solu Medrol 125 mg (Methyl Prednisolone Sodium Succinate) 13:19:04 [place] MAN CPT-31083 Abx/Therapy Injection 13:19:04 [place] MAN CPT-J2930 Solu Medrol 125 mg (Methyl Prednisolone Sodium Succinate) 11:15:53 [place] MAN CPT-J1050 Depo Provera 150 mg (Medroxyprogesterone) 13:45:44 CDT CPT-23303 Abx/Therapy Injection 13:45:44 CDT CPT-J1050 Depo Provera 150 mg (Medroxyprogesterone) 15:27:21 CDT CPT-94578 Abx/Therapy Injection 15:27:21 CDT CPT-98482 Abd compl w upright 17:11:01 CDT CPT-OV Office Visit 16:24:22 CDT CPT-OV Office Visit 15:15:29 CUP[place] MAN CPT-OV Office Visit 15:49:26 [place] MAN CPT-J1885 Toradol 60 mg (Ketorolac) 15:37:32 CDT CPT-10986 Abx/Therapy Injection 15:37:32 CDT CPT-J1885 Toradol 60 mg (Ketorolac) 14:45:01 CDT CPT-OV Office Visit 15:19:52 CDT CPT-OV Office Visit 10:41:01 CDT CPT-00629 Core biop breast wo imaging 16:50:06 CDT CPT-OV Office Visit 16:50:05 CDT CPT-33432 UHCG (floor use only) 13:39:36 CDT CPT-10945 Nexplanon Placement 10:11:48 CDT CPT-J7307 Nexplanon (Implant) 10:11:48 CDT CPT-OV Office Visit 09:54:18 CDT CPT-96835 EKG Trac and Interp 16:50:19 CDT CPT-37189 Venipuncture Draw Fee 15:06:08 CDT CPT-J2930 Solu Medrol 125 mg (Methyl Prednisolone Sodium Succinate) 12:44:46 CDT CPT-J1055 Depo Provera 150 mg (Medroxyprogesterone) 12:44:46 CDT CPT-68637 Abx/Therapy Injection 12:44:46 CDT CPT-J1055 Depo Provera 150 mg (Medroxyprogesterone) 14:28:41 CDT CPT-J2930 Solu Medrol 125 mg (Methyl Prednisolone Sodium Succinate) 14:22:41 CDT CPT-56441 Administration single or combination vaccine inc oral 10 :08:06 CDT CPT-41972 Tdap 10:08:06 CDT CPT-G0402 Wl To Medicare Ex 22:17:30 CDT CPT-62212 Venipuncture Draw Fee 10:33:07 [place] MAN CPT-93235 Venipuncture Draw Fee 10:17:37 [place] MAN CPT-G0403 EKG [facility] To Medicare 22:17:30 CDT
--- NOTE | 2018-07-17 20:59 | ED Psychosocial ---
General Stated Complaint: ANXIETY ATTACK Source: patient, EMS Exam Limitations: no limitations History of Present Illness Date Seen by Provider: Jul 17, 2018 Time Seen by Provider: 20:38 Initial Comments Patient presents to ER by EMS from home with chief complaint of rapid breathing , rapid heart rate, dull chest ache in the center that does not radiate, lips going numb and tingling and right side of face feeling hot and flushed. She does have a distant history of panic attack disorder with her last one being about 3 years ago. She says she was at a addiction recovery meeting and having a good time, moving around with friends when she started to feel palpitations and pressure in her chest and feel off. She says when this happens it usually means her blood pressure is elevated. She says she does not routinely have high blood pressure and does not take any blood pressure medicine. She has hydroxyzine at home that she can use for by the time she got home driving herself symptoms were improving. Her parents became concerned because of her rapid breathing and the way she was behaving so they called EMS. EMS reports she had normal vital signs normal saturation with a heart rate around 100 and a blood sugar 75. The patient has a distant history of PCO S and borderline diabetes however she lost a lot of weight and does not use any metformin or other medications nor is she followed for diabetes by her primary care provider Dr. Jacob. She denies nausea vomiting shakes dysuria weakness numbness or diarrhea. She does have chronic constipation and she uses magnesium and mag citrate to stay regular. Allergies and Home Medications Allergies Coded Allergies: Penicillins (Verified Allergy, Unknown, 10/16/09) haloperidol (Verified Allergy, Unknown, 07/17/18) latex (Unverified Allergy, Unknown, 07/17/18) Home Medications Albuterol 17 Gm Aerosol, 1 GM IH UD, (Reported) Citalopram Hydrobromide 40 Mg Tablet, 2 EACH PO DAILY, (Reported) Doxycycline Monohydrate 100 Mg Tablet, 100 MG PO BID Prescribed by: SOPHIA BAER on 03/13/10 143 Prednisone 20 Mg Tab, 40 MG PO DAILY Prescribed by: SOPHIA BAER on 03/13/10 1435 Simvastatin 40 Mg Tablet, 40 MG PO DAILY, (Reported) Thiothixene 20 Mg Capsule, 20 MG PO DAILY, (Reported) [Trazadone] , 200 MG PO HS, (Reported) Patient Home Medication List Home Medication List Reviewed: Yes Review of Systems Constitutional: No chills, No diaphoresis, No fever, No malaise EENTM: No ear discharge, No hearing loss, No ear pain Respiratory: No cough, No short of breath Cardiovascular: No chest pain, No edema Gastrointestinal: No abdominal pain, No constipation, No diarrhea Genitourinary: No discharge, No dysuria Past Qfrxyam-Jyvava-Ofhsxk Hx Patient Social History Alcohol Use: Denies Use Recreational Drug Use: No (hx) Smoking Status: Current Everyday Smoker Recent Foreign Travel: No Contact w/Someone Who Travel: No Past Medical History Reproductive Disorders: Yes (bi-corniated uterus) Physical Exam Vital Signs - First Documented 07/17/18 21:08 Temp 98.2 Pulse 94 Resp 16 B/P (MAP) 171/106 (127) Pulse Ox 100 O2 Delivery Room Air Capillary Refill : Height, Weight, BMI Height: '" Weight: lbs. oz. kg; BMI Method:Stated General Appearance: WD/WN, no apparent distress HEENT: PERRL/EOMI, normal ENT inspection, TMs normal, pharynx normal Neck: full range of motion, supple Respiratory: lungs clear, normal breath sounds, no respiratory distress, no accessory muscle use Cardiovascular: normal peripheral pulses, regular rate, rhythm, no edema Peripheral Pulses: 2+ Radial Pulses (R), 2+ Radial Pulses (L) Gastrointestinal: normal bowel sounds, non tender, soft Extremities: normal range of motion, non-tender, normal inspection, normal capillary refill Neurologic/Psychiatric: no motor/sensory deficits, alert, normal mood/affect, oriented x 3 Appearance/Memory: appropriate appearance, appropriate insight Behavior/Eye Contact: cooperative, good eye contact, normal speech, other ( denies suicidal ideation.) Thoughts/Hallucinations: normal thought pattern, no apparent hallucination Skin: normal color, warm/dry Progress/Results/Core Measures Results/Orders Lab Results Laboratory Tests Test 07/17/18 20:55 07/17/18 21:05 Range/Units Urine Color YELLOW Urine Clarity CLEAR Urine pH 7.0 5-9 Urine Specific [place] <1.005 1.016-1.022 Urine Protein NEGATIVE NEGATIVE Urine Glucose (UA) NEGATIVE NEGATIVE Urine Ketones NEGATIVE NEGATIVE Urine Nitrite NEGATIVE NEGATIVE Urine Bilirubin NEGATIVE NEGATIVE Urine Urobilinogen 0.2 NORMAL MG/DL Urine Leukocyte Esterase NEGATIVE NEGATIVE Urine RBC (Auto) NEGATIVE NEGATIVE Urine RBC NONE /HPF Urine WBC NONE /HPF Urine Squamous Epithelial Cells 0-2 /HPF Urine Crystals NONE /LPF Urine Bacteria NONE /HPF Urine Casts NONE /LPF Urine Mucus NEGATIVE /LPF Urine Culture Indicated NO Urine Test NEGATIVE NEGATIVE Urine Opiates Screen NEGATIVE NEGATIVE Urine Oxycodone Screen NEGATIVE NEGATIVE Urine Methadone Screen NEGATIVE NEGATIVE Urine Propoxyphene Screen NEGATIVE NEGATIVE Urine Barbiturates Screen NEGATIVE NEGATIVE Ur Tricyclic Antidepressants Screen NEGATIVE NEGATIVE Urine Phencyclidine Screen NEGATIVE NEGATIVE Urine Amphetamines Screen NEGATIVE NEGATIVE Urine Methamphetamines Screen NEGATIVE NEGATIVE Urine Benzodiazepines Screen NEGATIVE NEGATIVE Urine Cocaine Screen NEGATIVE NEGATIVE Urine Cannabinoids Screen NEGATIVE NEGATIVE White Blood Count 14.2 H 4.3-11.0 10^3/uL Red Blood Count 4.73 4.35-5.85 10^6/uL Hemoglobin 14.9 11.5-16.0 G/DL Hematocrit 43 35-52 % Mean Corpuscular Volume 91 80-99 FL Mean Corpuscular Hemoglobin 32 25-34 PG Mean Corpuscular Hemoglobin Concent 35 32-36 G/DL Red Cell Distribution Width 12.3 10.0-14.5 % Platelet Count 326 130-400 10^3/uL Mean Platelet Volume 9.2 7.4-10.4 FL Neutrophils (%) (Auto) 47 42-75 % Lymphocytes (%) (Auto) 43 12-44 % Monocytes (%) (Auto) 6 0-12 % Eosinophils (%) (Auto) 3 0-10 % Basophils (%) (Auto) 0 0-10 % Neutrophils # (Auto) 6.7 1.8-7.8 X 10^3 Lymphocytes # (Auto) 6.1 H 1.0-4.0 X 10^3 Monocytes # (Auto) 0.9 0.0-1.0 X 10^3 Eosinophils # (Auto) 0.4 H 0.0-0.3 10^3/uL Basophils # (Auto) 0.1 0.0-0.1 10^3/uL Neutrophils % (Manual) 43 % Lymphocytes % (Manual) 48 % Monocytes % (Manual) 4 % Eosinophils % (Manual) 5 % Basophils % (Manual) 0 % Band Neutrophils 0 % Blood Morphology Comment NORMAL Sodium Level 140 135-145 MMOL/L Potassium Level 3.8 3.6-5.0 MMOL/L Chloride Level 101 98-107 MMOL/L Carbon Dioxide Level 21 21-32 MMOL/L Anion Gap 18 H 5-14 MMOL/L Blood Urea Nitrogen 11 7-18 MG/DL Creatinine 0.70 0.60-1.30 MG/DL Estimat Glomerular Filtration Rate > 60 BUN/Creatinine Ratio 16 Glucose Level 82 70-105 MG/DL Calcium Level 9.6 8.5-10.1 MG/DL Corrected Calcium 9.3 8.5-10.1 MG/DL Total Bilirubin 0.3 0.1-1.0 MG/DL Aspartate Amino Transf (AST/SGOT) 20 5-34 U/L Alanine Aminotransferase (ALT/SGPT) 18 0-55 U/L Alkaline Phosphatase 53 40-136 U/L Troponin T < 6 <=10 NG/L Total Protein 7.2 6.4-8.2 GM/DL Albumin 4.4 3.2-4.5 GM/DL My Orders Orders - PRANEETH,ZANA J Cbc With Automated Diff (07/17/18 20:54) Comprehensive Metabolic Panel (07/17/18 20:54) Ua Culture If Indicated (07/17/18 20:54) Hcg,Qualitative Urine (07/17/18 20:54) Drug Screen Stat (Urine) (07/17/18 20:54) Continuous Ekg Monitoring (07/17/18 20:54) Ekg Tracing (07/17/18 20:54) Troponin T (07/17/18 20:54) Manual Differential (07/17/18 21:05) Vital Signs/I&O 07/17/18 21:08 Temp 98.2 Pulse 94 Resp 16 B/P (MAP) 171/106 (127) Pulse Ox 100 O2 Delivery Room Air Progress Progress Note : Time: 22:16 Progress Note She appears to have a panic attack based on her history but is no longer having any symptoms. She has hydroxyzine at home she can use if she needed it. We'll do some basic workup that did not reveal anything interesting other than a marginal elevation of the white count which is probably inconsequential. We'll have her follow-up outpatient as needed. Initial ECG Impression Date: Jul 17, 2018 Initial ECG Impression Time: 21:49 Initial ECG Rate: 92 Initial ECG Rhythm: Normal Sinus Initial ECG Intervals: Normal Initial ECG Impression: Normal Initial ECG Comparisson: No Previous ECG Available Comment No significant ST elevation or depression. Departure Impression Primary Impression: Anxiety Additional Impressions: Panic attack Chest tightness or pressure Disposition: 01 HOME, SELF-CARE Condition: Stable Departure-Patient Inst. Decision time for Depature: 22:18 Referrals: [facility] (PCP/Family) Primary Care Physician JEANCARLOS DOMÍNGUEZ MD Patient Instructions: Anxiety, Adult (DC) Add. Discharge Instructions: If you have another episode similar to this you might consider using the hydroxyzine and see if that helps abort it sooner. Your chest pain does not seem to be from a heart attack, dysrhythmia or other problems with a heart. If you wish to follow-up with a automotive buyer next couple days you can call Dr. Domínguez at the number listed above and request an appointment. He can help you understand your risk for heart disease and if there is any further workup would be reasonable to do outpatient ZANA DACOSTA Jul 17, 2018 20:59
--- OUTSIDE RECORDS SUMMARY | 2018-07-17 20:59 | XMS REPORT | Clinical Summary ---
Author Author Admin, ARIAN Organization [facility] Address Unknown Phone Unavailable Allergies, Adverse Reactions, [...] po BID PRN Constipation 10/07 MAGNESIUM CITRATE 64046546935 Active Carlos Mccormack MD Active DICLOFENAC SODIUM 50 MG ORAL TBEC TID PRN DICLOFENAC SODIUM 58018987545 Active Ian Valdez MD Active BUSPIRONE HCL 7.5 MG ORAL TABS 1 TAB PO BID PRN ANXIETY BUSPIRONE HCL 26721677003 Active Herminia Bear Active MEDROL (REBEKAH) 4 MG TABS 6 tabs on day 1, 5 tabs on day 2, 4 tabs on day 3, 3 tabs on day 4, 2 tabs on day 5, 1 tab on day 6 METHYLPREDNISOLONE 97290582575 No Longer Active Herminia Chema Active MELOXICAM 15 MG TABS 1 po q day for pain with food MELOXICAM 19751698844 Active Ian Valdez MD Active DOXYCYCLINE HYCLATE 100 MG CAP 1 cap by mouth twice daily DOXYCYCLINE HYCLATE 24283461239 No Longer Active Najma Vaughn CONTACT LENS POLISHER Active MULTIVITAMINS CAPS 1 tablet daily MULTIPLE VITAMIN 17625690037 Active Juan Smith MD Active CYCLOBENZAPRINE HCL 10 MG TABS 1/2 - 1 tab by mouth three times daily if needed for spasms/pain CYCLOBENZAPRINE HCL 97889795882 Active Ian Valdez MD Active GLUCOPHAGE 500 MG TABS 1 tab BID with morning and night meals METFORMIN HCL 48402992206 Active Eva Ferrara MD PhD Active PROGESTERONE MICRONIZED 100 MG CAPS 2 caps daily day 16 thru 25 of cycle 2013 PROGESTERONE MICRONIZED 86077014924 Active Eva Ferrara MD PhD Active TERBINAFINE HCL 1 % CREA Apply bid to rash TERBINAFINE HCL 61077334098 No Longer Active Eva Ferrara MD PhD Active TOPAMAX 25 MG TABS 1 tab po qhs x 1 week, then take 2 tabs po qhs TOPIRAMATE 69792407322 No Longer Active Thom Gilbert MD Active ULTRAM 50 MG TAB take 1 tab po q6hrs prn pain TRAMADOL HCL 44213751411 Active Ian Valdez MD Active LAMISIL AT 1 % CREA apply bid to rash TERBINAFINE HCL 47871702236 No Longer Active Thom Gilbert MD Active TERBINAFINE HCL 250 MG TABS 1 qDay TERBINAFINE HCL 70657206464 No Longer Active Ian Valdez MD Active XANAX 0.25 MG TABS take 1 tab po bid prn anxiety. ALPRAZOLAM 65116916931 No Longer Active Ian Valdez MD Active FISH OIL 1000 MG CAPS 2 caps PO once daily at bedtime OMEGA-3 FATTY ACIDS 53431549161 No Longer Active Ian Valdez MD Active KLOR-CON M20 20 MEQ CR-TABS take 1 tab po qday with lasix POTASSIUM CHLORIDE GALILEO CR 68841999243 Active Ian Valdez MD Active LASIX 20 MG TAB 1 tablet by mouth daily prn swelling FUROSEMIDE 83329245000 Active Ian Valdez MD Active FLONASE 50 MCG/ACT SUSP 2 puffs in each nostril once daily at bedtime FLUTICASONE PROPIONATE 92774964458 Active Ian Valdez MD Active [facility] MELATONIN 3 MG TABS 2 tabs PO at bedtime MELATONIN 81721767890 Active Ian Valdez MD Active PULMICORT FLEXHALER 180 MCG/ACT AEPB 2 INH BID BUDESONIDE 10309461711 No Longer Active Ian Valdez MD Active METFORMIN HCL 500 MG TB24 1 TAB PO Q HS METFORMIN HCL 58371198621 No Longer Active Ian Valdez MD Active CYCLOBENZAPRINE HCL 10 MG TABS 1 PO q 8 hrs PRN muscle spasm 2012 CYCLOBENZAPRINE HCL 70004340325 No Longer Active Ian Valdez MD Active AZITHROMYCIN 500 MG TABS 1 PO q day x 6 days AZITHROMYCIN 69717326038 No Longer Active Ian Valdez MD Active CIPRO 500 MG TAB 1 tablet by mouth twice daily CIPROFLOXACIN HCL 10392438125 No Longer Active Ian Valdez MD Active PREDNISONE 20 MG TABS 3 qd x 2d, 2 qd x 2d, 1 qd x 2d, 1/2 qd x 2d PREDNISONE 66083286847 No Longer Active Law FIGUEROA Active CELEXA 40 MG TABS 2 PO DAILY CITALOPRAM HYDROBROMIDE 63772614247 Active Ian Valdez MD Active OMEPRAZOLE 20 MG CPDR 1 tablet by mouth daily OMEPRAZOLE 66215320795 No Longer Active [place] FIGUEROA Active KLONOPIN 0.5 MG TABS 1 TABLET PO PRN CLONAZEPAM 91892357618 No Longer Active [place] FIGUEROA Active MOBIC 7.5 MG TABS 1 tablet by mouthonce a day MELOXICAM 22735159404 No Longer Active [place] FIGUEROA Active ZITHROMAX 1 GM PACK DIRECTED AZITHROMYCIN 60393373677 No Longer Active Ian Valdez MD Active ALBUTEROL SULFATE 0.083 % NEBU SOLN one vial per nebulizer every 4-6 hours as needed ALBUTEROL SULFATE 16783327132 Active Ian Valdez MD Active CHANTIX STARTING MONTH REBEKAH 0.5 MG X 11 & 1 MG X 42 TABS 0.5mg daily for 3 days , then 0.5mg BID for 4 days, then 1mg BID VARENICLINE TARTRATE 18772607138 No Longer Active Ian Valdez MD Active ZITHROMAX 1 GM PACK DIRECTED AZITHROMYCIN 80228974279 No Longer Active Ian Valdez MD Active AURALGAN 1.4-5.5 % SOLN BENZOCAINE-ANTIPYRINE 98070547824 No Longer Active Ian Valdez MD Active PREDNISONE 20 MG TAB 3 tabs daily for 3 days, 2 tab daily for 3 days, 1 tab daily for 2 days, then 1/2 tab dialy for 2 days PREDNISONE 17913880733 No Longer Active Ian Valdez MD Active SIMVASTATIN 40 MG TABS 1 TABLET PO Q HS SIMVASTATIN 16602124787 Active Ian Valdez MD Active SIMVASTATIN 80 MG TABS Take one by mouth daily SIMVASTATIN 63470607420 No Longer Active Ian Valdez MD Active PREDNISONE 20 MG TAB 2 tabs daily for 3 days, 1 tab daily for 3 days, 1/2 tab daily for 2 days PREDNISONE 96076445434 No Longer Active Ian Valdez MD Active ZITHROMAX 250 MG TAB 2 po today, then 1 po q days 2-5 AZITHROMYCIN 98203047663 No Longer Active Ian Valdez MD Active TRAZODONE HCL 100 MG TABS 2 TABS PO Q HS TRAZODONE HCL 81559995494 Active Ian Valdez MD Active ZITHROMAX 250 MG TAB 2 po today, then 1 po q days 2-5 AZITHROMYCIN 64330577854 No Longer Active Ian Valdez MD Active SIMVASTATIN 80 MG TABS Take one by mouth daily SIMVASTATIN 80 MG TABS 067367 SIMVASTATIN Inactive AURALGAN 1.4-5.5 % SOLN AURALGAN 1.4-5.5 % SOLN BENZOCAINE-ANTIPYRINE Inactive ZITHROMAX 1 GM PACK DIRECTED ZITHROMAX 1 GM PACK 929643 AZITHROMYCIN Inactive CHANTIX STARTING MONTH REBEKAH 0.5 MG X 11 & 1 MG X 42 TABS 0.5mg daily for 3 days , then 0.5mg BID for 4 days, then 1mg BID CHANTIX STARTING MONTH REBEKAH 0.5 MG X 11 & 1 MG X 42 TABS VARENICLINE TARTRATE Inactive ZITHROMAX 1 GM PACK DIRECTED ZITHROMAX 1 GM PACK 504266 AZITHROMYCIN Inactive MOBIC 7.5 MG TABS 1 tablet by mouthonce a day MOBIC 7.5 MG TABS 163511 MELOXICAM Inactive KLONOPIN 0.5 MG TABS 1 TABLET PO PRN KLONOPIN 0.5 MG TABS 279822 CLONAZEPAM Inactive CIPRO 500 MG TAB 1 tablet by mouth twice daily CIPRO 500 MG TAB 791024 CIPROFLOXACIN HCL Inactive AZITHROMYCIN 500 MG TABS 1 PO q day x 6 days AZITHROMYCIN 500 MG TABS 8111526 AZITHROMYCIN Inactive CYCLOBENZAPRINE HCL 10 MG TABS 1 PO q 8 hrs PRN muscle spasm 2012 CYCLOBENZAPRINE HCL 10 MG TABS 597069 CYCLOBENZAPRINE HCL Inactive METFORMIN HCL 500 MG [...] bid prn anxiety. XANAX 0.25 MG TABS 075079 ALPRAZOLAM Inactive LAMISIL AT 1 % CREA apply bid to rash LAMISIL AT 1 % CREA 491240 TERBINAFINE HCL Inactive TOPAMAX 25 MG TABS 1 tab po qhs x 1 week, then take 2 tabs po qhs TOPAMAX 25 MG TABS 005022 TOPIRAMATE Inactive TERBINAFINE HCL 1 % CREA Apply bid to rash TERBINAFINE HCL 1 % CREA 456789 TERBINAFINE HCL Inactive ZITHROMAX 250 MG TAB 2 po today, then 1 po q days 2-5 ZITHROMAX 250 MG TAB 6858949 AZITHROMYCIN Inactive ZITHROMAX 250 MG TAB 2 po today, then 1 po q days 2-5 ZITHROMAX 250 MG TAB 4033775 AZITHROMYCIN Inactive PREDNISONE 20 MG TAB 2 tabs daily for 3 days, 1 tab daily for 3 days, 1/2 tab daily for 2 days PREDNISONE 20 MG TAB 178103 PREDNISONE Inactive PREDNISONE 20 MG TAB 3 tabs daily for 3 days, 2 tab daily for 3 days, 1 tab daily for 2 days, then 1/2 tab dialy for 2 days PREDNISONE 20 MG TAB 383685 PREDNISONE Inactive OMEPRAZOLE 20 MG CPDR 1 tablet by mouth daily OMEPRAZOLE 20 MG CPDR 431639 OMEPRAZOLE Inactive PREDNISONE 20 MG TABS 3 qd x 2d, 2 qd x 2d, 1 qd x 2d, 1/2 qd x 2d PREDNISONE 20 MG TABS 943259 PREDNISONE Inactive TERBINAFINE HCL 250 MG TABS 1 qDay TERBINAFINE HCL 250 MG TABS 989801 TERBINAFINE HCL Inactive DOXYCYCLINE HYCLATE 100 MG CAP 1 cap by mouth twice daily DOXYCYCLINE HYCLATE 100 MG CAP 5951243 DOXYCYCLINE HYCLATE Inactive MEDROL (REBEKAH) 4 MG [...] and acellular pertussis vaccine, adsorbed), booster Boostrix [URV073] tetanus toxoid, reduced diphtheria toxoid, and acellular [...] 1.44 m[iU]/mL 0.36-3.74 cholesterol, serum 144 mg/dL 298-136 1459/11/19 triglyceride, serum, fasting 172 mg/dL 30-200 HDL cholesterol, serum 30 mg/dL 32-96 LDL cholesterol, serum 80 mg/dL 0-130 sodium, serum 137 mmol/L 059-393 7127/11/19 potassium, serum 4.1 mmol/L 3.5-5.2 chloride, serum 100 mmol/L 98-107 carbon dioxide, venous blood 26.9 mmol/L 21.0-32.0 blood glucose 84 mg/dL 65-110 urea nitrogen, blood 11 mg/dL 7-18 creatinine, serum 0.90 mg/dL 0.60-1.30 alanine aminotransferase (SGPT), serum 23 U/L 12-78 aspartate aminotransferase (SGOT), serum 17 U/L 15-37 calcium, serum 9.5 mg/dL 8.5-10.1 bilirubin, serum, total 0.70 mg/dL 0.00-1.00 Lab Report: HIV-1/2 Agn/Ritu/73740, Chlamydia/GC APTIMA/07150 - Lab chlamydia DNA probe NOT DETECTED NOT DETECTED Lab Report: HIV-1/2 Agn/Ritu/26381, Chlamydia/GC APTIMA/70753 - Microbiology Neisseria gonorrhoeae DNA probe NOT DETECTED NOT DETECTED Lab Report: TONY INFLUENZA A/B - Toxicology rapid flu test Negative Negative;Positive Lab Report: [facility] [place] - Chemistry human chorionic gonadotropin, urine, qualitative (urine test) Negative Negative Office Visit: wellness exam for insurance/ diabetes check - Chemistry cholesterol, target level 200 mg/dL LDL target level 100 mg/dL HDL cholesterol, serum, target level 40 mg/dL triglyceride, target level 150 mg/dL Encounters Code Encounter Date Provider Facility CPT-07633 Level 3 Est. Patient 17:03:54 CDT Carlos Mccormack MD [facility] CPT-51803 Level 3 Est. Patient 20:15:16 CDT Ian Valdez MD [facility] CPT-89317 Level 3 Est. Patient 13:49:34 CDT Ian Valdez MD [facility] CPT-81988 Level 3 Est. Patient 15:50:27 MS SQL SERVER DEVELOPER Najma Vaughn APRN [facility] CPT-32891 Level 4 Est. Patient 21:20:00 MS SQL SERVER DEVELOPER Ian Valdez MD [facility] CPT-58815 Level 3 Est. Patient 15:32:41 MS SQL SERVER DEVELOPER Juan Smith MD [facility] CPT-56363 Level 3 Est. Patient 14:45:01 CDT Eva Ferrara MD PhD [facility] CPT-30470 Level 3 Est. Patient 14:54:10 CDT Ian Valdez MD [facility] CPT-92380 Level 4 Est. Patient 20:36:52 CDT Ian Valdez MD [facility] CPT-86704 Level 4 Est. Patient 11:14:30 MS SQL SERVER DEVELOPER Ian Valdez MD [facility] CPT-24242 Level 3 Est. Patient 19:08:34 MS SQL SERVER DEVELOPER Ian Valdez MD [facility] CPT-51250 Level 3 Est. Patient 13:17:39 MS SQL SERVER DEVELOPER Ian Valdez MD [facility] CPT-26007 Level 4 Est. Patient 18:56:10 CDT Ian Valdez MD [facility] CPT-91576 Level 4 Est. Patient 16:55:56 CDT Ian Valdez MD [facility] CPT-64793 Level 3 Est. Patient 11:27:07 CDT Ian Valdez MD [facility] CPT-68526 Level 3 Est. Patient 15:17:44 CDT Law Rosas [facility] CPT-37797 Level 4 Est. Patient 15:13:53 CDT Wellington Muniz [facility] CPT-93768 Level 3 Est. Patient 14:25:12 MS SQL SERVER DEVELOPER Ian Valdez MD [facility] CPT-86826 Level 3 Est. Patient 10:24:46 CDT Ian Valdez MD [facility] CPT-99256 Level 3 Est. Patient 15:34:19 CDT Ian Valdez MD [facility] CPT-06233 Level 3 Est. Patient 14:22:41 CDT Ian Valdez MD [facility] CPT-59450 Level 3 Est. Patient 15:07:22 MS SQL SERVER DEVELOPER Ian Valdez MD [facility] CPT-97351 Level 3 New Patient 09:06:43 MS SQL SERVER DEVELOPER Ian Valdez MD [facility] CPT-56072 Level 3 Est. Patient 15:09:00 MS SQL SERVER DEVELOPER Ian Valdez MD [facility] Procedures Code Procedure Name Date Entry Date Standard Description CPT-80869 Abd compl w upright 17:11:01 CDT CPT-OV Office Visit 16:24:22 CDT CPT-OV Office Visit 15:15:29 MS SQL SERVER DEVELOPER CPT-OV Office Visit 15:49:26 MS SQL SERVER DEVELOPER CPT-J1885 Toradol 60 mg (Ketorolac) 15:37:32 CDT CPT-91475 Abx/Therapy Injection 15:37:32 CDT CPT-J1885 Toradol 60 mg (Ketorolac) 14:45:01 CDT CPT-OV Office Visit 15:19:52 CDT CPT-OV Office Visit 10:41:01 CDT CPT-58130 Core biop breast wo imaging 16:50:06 CDT CPT-OV Office Visit 16:50:05 CDT CPT-43062 UHCG (floor use only) 13:39:36 CDT CPT-04796 Nexplanon Placement 10:11:48 CDT CPT-J7307 Nexplanon (Implant) 10:11:48 CDT CPT-OV Office Visit 09:54:18 CDT CPT-96122 EKG Trac and Interp 16:50:19 CDT CPT-46415 Venipuncture Draw Fee 15:06:08 CDT CPT-J2930 Solu Medrol 125 mg (Methyl Prednisolone Sodium Succinate) 12:44:46 CDT CPT-J1055 Depo Provera 150 mg (Medroxyprogesterone) 12:44:46 CDT CPT-05510 Abx/Therapy Injection 12:44:46 CDT CPT-J1055 Depo Provera 150 mg (Medroxyprogesterone) 14:28:41 CDT CPT-J2930 Solu Medrol 125 mg (Methyl Prednisolone Sodium Succinate) 14:22:41 CDT CPT-49080 Administration single or combination vaccine inc oral 10 :08:06 CDT CPT-95200 Tdap 10:08:06 CDT CPT-G0402 Wl To Medicare Ex 22:17:30 CDT CPT-63329 Venipuncture Draw Fee 10:33:07 MS SQL SERVER DEVELOPER CPT-96176 Venipuncture Draw Fee 10:17:37 MS SQL SERVER DEVELOPER CPT-G0403 EKG Wl To Medicare 22:17:30 CDT
--- OUTSIDE RECORDS SUMMARY | 2018-07-17 21:00 | XMS REPORT | Clinical Summary ---
Author Author Admin, ARIAN Organization [facility] Address Unknown Phone Unavailable Allergies, Adverse Reactions, [...] MD Sinusitis, frontal, acute ICD-461.1 Inactive Thom Glibert MD Breast mass ICD-611.72 Inactive Thom Gilbert MD Influenza like illness ICD-487.1 Inactive Thom Gilbert MD Medication List Medication Instructions Start Date Stop Date Generic Name NDC Status Provider Patient Instruction MAGNESIUM CITRATE 1.745 GM/30ML ORAL SOLN 150ml po BID PRN Constipation 10/07 MAGNESIUM CITRATE 42507215427 Active Carlos Mccormack MD Active DICLOFENAC SODIUM 50 MG ORAL TBEC TID PRN DICLOFENAC SODIUM 96790037188 Active Nataliya Lozada Active BUSPIRONE HCL 7.5 MG ORAL TABS 1 TAB PO BID PRN ANXIETY BUSPIRONE HCL 24084549338 Active Herminia Bear Active MEDROL (REBEKAH) 4 MG TABS 6 tabs on day 1, 5 tabs on day 2, 4 tabs on day 3, 3 tabs on day 4, 2 tabs on day 5, 1 tab on day 6 METHYLPREDNISOLONE 54954562849 No Longer Active Herminia Bear Active MELOXICAM 15 MG TABS 1 po q day for pain with food MELOXICAM 38810864117 Active Ian Valdez MD Active DOXYCYCLINE HYCLATE 100 MG CAP 1 cap by mouth twice daily DOXYCYCLINE HYCLATE 86567355888 No Longer Active Najma Vaughn APRN Active MULTIVITAMINS CAPS 1 tablet daily MULTIPLE VITAMIN 64691147104 Active Juan Smith MD Active CYCLOBENZAPRINE HCL 10 MG TABS 1/2 - 1 tab by mouth three times daily if needed for spasms/pain CYCLOBENZAPRINE HCL 20968624045 Active Ian Valdez MD Active GLUCOPHAGE 500 MG TABS 1 tab BID with morning and night meals METFORMIN HCL 61067284676 Active Eva Ferrara MD PhD Active PROGESTERONE MICRONIZED 100 MG CAPS 2 caps daily day 16 thru 25 of cycle 2013 PROGESTERONE MICRONIZED 12002198631 Active Eva Ferrara MD PhD Active TERBINAFINE HCL 1 % CREA Apply bid to rash TERBINAFINE HCL 15972240876 No Longer Active Eva Ferrara MD PhD Active TOPAMAX 25 MG TABS 1 tab po qhs x 1 week, then take 2 tabs po qhs TOPIRAMATE 47387858879 No Longer Active Thom Gilbert MD Active ULTRAM 50 MG TAB take 1 tab po q6hrs prn pain TRAMADOL HCL 69966675729 Active Grayson Josue DO Active LAMISIL AT 1 % CREA apply bid to rash TERBINAFINE HCL 40357267092 No Longer Active Thom Gilbert MD Active TERBINAFINE HCL 250 MG TABS 1 qDay TERBINAFINE HCL 73368242560 No Longer Active Ian Valdez MD Active XANAX 0.25 MG TABS take 1 tab po bid prn anxiety. ALPRAZOLAM 29769689444 No Longer Active Ian Valdez MD Active FISH OIL 1000 MG CAPS 2 caps PO once daily at bedtime OMEGA-3 FATTY ACIDS 59146582360 No Longer Active Ian Valdez MD Active KLOR-CON M20 20 MEQ CR-TABS take 1 tab po qday with lasix POTASSIUM CHLORIDE GALILEO CR 22296459266 Active Ian Valdez MD Active LASIX 20 MG TAB 1 tablet by mouth daily prn swelling FUROSEMIDE 20023649680 Active Ian Valdez MD Active FLONASE 50 MCG/ACT SUSP 2 puffs in each nostril once daily at bedtime FLUTICASONE PROPIONATE 08343282074 Active Ian Valdez MD Active [facility] MELATONIN 3 MG TABS 2 tabs PO at bedtime MELATONIN 26203150200 Active Ian Valdez MD Active PULMICORT FLEXHALER 180 MCG/ACT AEPB 2 INH BID BUDESONIDE 08926489932 No Longer Active Ian Valdez MD Active METFORMIN HCL 500 MG TB24 1 TAB PO Q HS METFORMIN HCL 77805641656 No Longer Active Ian Valdez MD Active CYCLOBENZAPRINE HCL 10 MG TABS 1 PO q 8 hrs PRN muscle spasm 2012 CYCLOBENZAPRINE HCL 78093364435 No Longer Active Ian Valdez MD Active AZITHROMYCIN 500 MG TABS 1 PO q day x 6 days AZITHROMYCIN 36107105515 No Longer Active Ian Valdez MD Active CIPRO 500 MG TAB 1 tablet by mouth twice daily CIPROFLOXACIN HCL 26316203826 No Longer Active Ian Valdez MD Active PREDNISONE 20 MG TABS 3 qd x 2d, 2 qd x 2d, 1 qd x 2d, 1/2 qd x 2d PREDNISONE 78201512597 No Longer Active Law FIGUEROA Active CELEXA 40 MG TABS 2 PO DAILY CITALOPRAM HYDROBROMIDE 75921691852 Active Ian Valdez MD Active OMEPRAZOLE 20 MG CPDR 1 tablet by mouth daily OMEPRAZOLE 85865305060 No Longer Active [place] FIGUEROA Active KLONOPIN 0.5 MG TABS 1 TABLET PO PRN CLONAZEPAM 49795489203 No Longer Active [place] FIGUEROA Active MOBIC 7.5 MG TABS 1 tablet by mouthonce a day MELOXICAM 46238941987 No Longer Active [place] FIGUEROA Active ZITHROMAX 1 GM PACK DIRECTED AZITHROMYCIN 49591214395 No Longer Active Ian Valdez MD Active ALBUTEROL SULFATE 0.083 % NEBU SOLN one vial per nebulizer every 4-6 hours as needed ALBUTEROL SULFATE 93654366516 Active Ian Valdez MD Active CHANTIX STARTING MONTH REBEKAH 0.5 MG X 11 & 1 MG X 42 TABS 0.5mg daily for 3 days , then 0.5mg BID for 4 days, then 1mg BID VARENICLINE TARTRATE 29996755946 No Longer Active Ian Valdez MD Active ZITHROMAX 1 GM PACK DIRECTED AZITHROMYCIN 11545069432 No Longer Active Ian Valdez MD Active AURALGAN 1.4-5.5 % SOLN BENZOCAINE-ANTIPYRINE 88423630120 No Longer Active Ian Valdez MD Active PREDNISONE 20 MG TAB 3 tabs daily for 3 days, 2 tab daily for 3 days, 1 tab daily for 2 days, then 1/2 tab dialy for 2 days PREDNISONE 46083314436 No Longer Active Ian Valdez MD Active SIMVASTATIN 40 MG TABS 1 TABLET PO Q HS SIMVASTATIN 15604714864 Active Ian Valdez MD Active SIMVASTATIN 80 MG TABS Take one by mouth daily SIMVASTATIN 74924878179 No Longer Active Ian Valdez MD Active PREDNISONE 20 MG TAB 2 tabs daily for 3 days, 1 tab daily for 3 days, 1/2 tab daily for 2 days PREDNISONE 18352551123 No Longer Active Ian Valdez MD Active ZITHROMAX 250 MG TAB 2 po today, then 1 po q days 2-5 AZITHROMYCIN 02825195655 No Longer Active Ian Valdez MD Active TRAZODONE HCL 100 MG TABS 2 TABS PO Q HS TRAZODONE HCL 31047599750 Active Ian Valdez MD Active ZITHROMAX 250 MG TAB 2 po today, then 1 po q days 2-5 AZITHROMYCIN 53133058241 No Longer Active Ian Valdez MD Active SIMVASTATIN 80 MG TABS Take one by mouth daily SIMVASTATIN 80 MG TABS 534478 SIMVASTATIN Inactive AURALGAN 1.4-5.5 % SOLN AURALGAN 1.4-5.5 % SOLN BENZOCAINE-ANTIPYRINE Inactive ZITHROMAX 1 GM PACK DIRECTED ZITHROMAX 1 GM PACK 676729 AZITHROMYCIN Inactive CHANTIX STARTING MONTH REBEKAH 0.5 MG X 11 & 1 MG X 42 TABS 0.5mg daily for 3 days , then 0.5mg BID for 4 days, then 1mg BID CHANTIX STARTING MONTH REBEKAH 0.5 MG X 11 & 1 MG X 42 TABS VARENICLINE TARTRATE Inactive ZITHROMAX 1 GM PACK DIRECTED ZITHROMAX 1 GM PACK 291363 AZITHROMYCIN Inactive MOBIC 7.5 MG TABS 1 tablet by mouthonce a day MOBIC 7.5 MG TABS 923384 MELOXICAM Inactive KLONOPIN 0.5 MG TABS 1 TABLET PO PRN KLONOPIN 0.5 MG TABS 026279 CLONAZEPAM Inactive CIPRO 500 MG TAB 1 tablet by mouth twice daily CIPRO 500 MG TAB 488116 CIPROFLOXACIN HCL Inactive AZITHROMYCIN 500 MG TABS 1 PO q day x 6 days AZITHROMYCIN 500 MG TABS 9649593 AZITHROMYCIN Inactive CYCLOBENZAPRINE HCL 10 MG TABS 1 PO q 8 hrs PRN muscle spasm 2012 CYCLOBENZAPRINE HCL 10 MG TABS 162361 CYCLOBENZAPRINE HCL Inactive METFORMIN HCL 500 MG [...] bid prn anxiety. XANAX 0.25 MG TABS 119315 ALPRAZOLAM Inactive LAMISIL AT 1 % CREA apply bid to rash LAMISIL AT 1 % CREA 123109 TERBINAFINE HCL Inactive TOPAMAX 25 MG TABS 1 tab po qhs x 1 week, then take 2 tabs po qhs TOPAMAX 25 MG TABS 094165 TOPIRAMATE Inactive TERBINAFINE HCL 1 % CREA Apply bid to rash TERBINAFINE HCL 1 % CREA 813835 TERBINAFINE HCL Inactive ZITHROMAX 250 MG TAB 2 po today, then 1 po q days 2-5 ZITHROMAX 250 MG TAB 2520496 AZITHROMYCIN Inactive ZITHROMAX 250 MG TAB 2 po today, then 1 po q days 2-5 ZITHROMAX 250 MG TAB 0751831 AZITHROMYCIN Inactive PREDNISONE 20 MG TAB 2 tabs daily for 3 days, 1 tab daily for 3 days, 1/2 tab daily for 2 days PREDNISONE 20 MG TAB 514628 PREDNISONE Inactive PREDNISONE 20 MG TAB 3 tabs daily for 3 days, 2 tab daily for 3 days, 1 tab daily for 2 days, then 1/2 tab dialy for 2 days PREDNISONE 20 MG TAB 698990 PREDNISONE Inactive OMEPRAZOLE 20 MG CPDR 1 tablet by mouth daily OMEPRAZOLE 20 MG CPDR 778236 OMEPRAZOLE Inactive PREDNISONE 20 MG TABS 3 qd x 2d, 2 qd x 2d, 1 qd x 2d, 1/2 qd x 2d PREDNISONE 20 MG TABS 366833 PREDNISONE Inactive TERBINAFINE HCL 250 MG TABS 1 qDay TERBINAFINE HCL 250 MG TABS 727702 TERBINAFINE HCL Inactive DOXYCYCLINE HYCLATE 100 MG CAP 1 cap by mouth twice daily DOXYCYCLINE HYCLATE 100 MG CAP 4736308 DOXYCYCLINE HYCLATE Inactive MEDROL (REBEKAH) 4 MG [...] and acellular pertussis vaccine, adsorbed), booster Boostrix [[id number]] tetanus toxoid, reduced diphtheria toxoid, and acellular [...] 1.44 m[iU]/mL 0.36-3.74 cholesterol, serum 144 mg/dL 261-726 3697/11/19 triglyceride, serum, fasting 172 mg/dL 30-200 HDL cholesterol, serum 30 mg/dL 32-96 LDL cholesterol, serum 80 mg/dL 0-130 sodium, serum 137 mmol/L 107-389 7763/11/19 potassium, serum 4.1 mmol/L 3.5-5.2 chloride, serum 100 mmol/L 98-107 carbon dioxide, venous blood 26.9 mmol/L 21.0-32.0 blood glucose 84 mg/dL 65-110 urea nitrogen, blood 11 mg/dL 7-18 creatinine, serum 0.90 mg/dL 0.60-1.30 alanine aminotransferase (SGPT), serum 23 U/L 12-78 aspartate aminotransferase (SGOT), serum 17 U/L 15-37 calcium, serum 9.5 mg/dL 8.5-10.1 bilirubin, serum, total 0.70 mg/dL 0.00-1.00 Lab Report: HIV-1/2 Agn/Ritu/02657, Chlamydia/GC APTIMA/39497 - Lab chlamydia DNA probe NOT DETECTED NOT DETECTED Lab Report: HIV-1/2 Agn/Ritu/42357, Chlamydia/GC APTIMA/20195 - Microbiology Neisseria gonorrhoeae DNA probe NOT DETECTED NOT DETECTED Lab Report: TONY INFLUENZA A/B - Toxicology rapid flu test Negative Negative;Positive Office Visit: wellness exam for insurance/ diabetes check - Chemistry cholesterol, target level 200 mg/dL LDL target level 100 mg/dL HDL cholesterol, serum, target level 40 mg/dL triglyceride, target level 150 mg/dL Encounters Code Encounter Date Provider Facility CPT-16913 Level 3 Est. Patient 17:03:54 CDT Carlos Mccormack MD [facility] CPT-18912 Level 3 Est. Patient 20:15:16 CDT Ian Valdez MD [facility] CPT-06347 Level 3 Est. Patient 13:49:34 CDT Ian Valdez MD [facility] CPT-46510 Level 3 Est. Patient 15:50:27 [employer]TLE [employer] Najma Vaughn APRN [facility] CPT-78600 Level 4 Est. Patient 21:20:00 [employer]TLE CLE[employer] Ian Valdez MD [facility] CPT-90364 Level 3 Est. Patient 15:32:41 [employer]TLE [employer] Juan Smith MD [facility] CPT-93677 Level 3 Est. Patient 14:45:01 CDT Eva Ferrara MD PhD [facility] CPT-40136 Level 3 Est. Patient 14:54:10 CDT Ian Valdez MD [facility] CPT-49323 Level 4 Est. Patient 20:36:52 CDT Ian Valdez MD [facility] CPT-68728 Level 4 Est. Patient 11:14:30 KETTLE CLE[employer]ER Ian Valdez MD [facility] CPT-63437 Level 3 Est. Patient 19:08:34 KETTLE CLEANER Ian Valdez MD [facility] CPT-52258 Level 3 Est. Patient 13:17:39 KETTLE CLEANER Ian Valdez MD [facility] CPT-37624 Level 4 Est. Patient 18:56:10 CDT Ian Valdez MD [facility] [place] Level 4 Est. Patient 16:55:56 CDT Ian Valdez MD [facility] [place] Level 3 Est. Patient 11:27:07 CDT Ian Valdez MD [facility] CPT-44609 Level 3 Est. Patient 15:17:44 CDT Law Rosas [facility] CPT-64780 Level 4 Est. Patient 15:13:53 CDT Wellington Muniz [facility] CPT-86861 Level 3 Est. Patient 14:25:12 KETTLE CLE[employer]ER Ian Valdez MD [facility] [place] [facility] [place] Level 3 Est. Patient 10:24:46 CDT Ian Valdez MD [facility] CPT-19749 Level 3 Est. Patient 15:34:19 CDT Ian Valdez MD [facility] CPT-15932 Level 3 Est. Patient 14:22:41 CDT Ian Valdez MD [facility] CPT-11616 Level 3 Est. Patient 15:07:22 KETTLE CLEANER Ian Valdez MD [facility] CPT-06393 Level 3 New Patient 09:06:43 KETTLE CLE[employer]ER Ian Valdez MD [facility] CPT-39168 Level 3 Est. Patient 15:09:00 KETTLE CLE[employer]ER Ian Valdez MD [facility] Procedures Code Procedure Name Date Entry Date Standard Description CPT-80909 Abd compl w upright 17:11:01 CDT CPT-OV Office Visit 16:24:22 CDT CPT-OV Office Visit 15:15:29 K[employer]TLE CLE[employer]ER CPT-OV Office Visit 15:49:26 [employer]TLE CLE[employer] CPT-J1885 Toradol 60 mg (Ketorolac) 15:37:32 CDT CPT-76373 Abx/Therapy Injection 15:37:32 CDT CPT-J1885 Toradol 60 mg (Ketorolac) 14:45:01 CDT CPT-OV Office Visit 15:19:52 CDT CPT-OV Office Visit 10:41:01 CDT CPT-32925 Core biop breast wo imaging 16:50:06 CDT CPT-OV Office Visit 16:50:05 CDT CPT-85766 UHCG (floor use only) 13:39:36 CDT CPT-57141 Nexplanon Placement 10:11:48 CDT CPT-J7307 Nexplanon (Implant) 10:11:48 CDT CPT-OV Office Visit 09:54:18 CDT CPT-79493 EKG Trac and Interp 16:50:19 CDT CPT-50268 Venipuncture Draw Fee 15:06:08 CDT CPT-J2930 Solu Medrol 125 mg (Methyl Prednisolone Sodium Succinate) 12:44:46 CDT CPT-J1055 Depo Provera 150 mg (Medroxyprogesterone) 12:44:46 CDT CPT-27859 Abx/Therapy Injection 12:44:46 CDT CPT-J1055 Depo Provera 150 mg (Medroxyprogesterone) 14:28:41 CDT CPT-J2930 Solu Medrol 125 mg (Methyl Prednisolone Sodium Succinate) 14:22:41 CDT CPT-69671 Administration single or combination vaccine inc oral 10 :08:06 CDT CPT-22849 Tdap 10:08:06 CDT CPT-G0402 Wl To Medicare Ex 22:17:30 CDT CPT-90378 Venipuncture Draw Fee 10:33:07 K[employer]TLE CLE[employer]ER CPT-17405 Venipuncture Draw Fee 10:17:37 KETTLE CLEANER CPT-G0403 EKG [facility] To Medicare 22:17:30 CDT
--- OUTSIDE RECORDS SUMMARY | 2018-07-17 21:02 | XMS REPORT | Clinical Summary ---
Author Author Admin, ARIAN Organization [facility] Address Unknown Phone Unavailable Allergies, [...] PO q 8 hrs PRN pain OXYCODONE-ACETAMINOPHEN [id number] Active Law FIGUEROA Active MINOCYCLINE HCL 100 MG CAP 1 TAB PO DAILY MINOCYCLINE HCL 19659288504 Active Herminia Bear Active BENZACLIN 1-5 % EXT GEL apply to face BID for acne. CLINDAMYCIN PHOS-BENZOYL PEROX 79116456894 No Longer Active Herminia Bear Active HYDROCODONE-ACETAMINOPHEN 5-325 MG TABS 1-2 tabs by mouth every 4- 6 hours as needed HYDROCODONE-ACETAMINOPHEN 61349793543 Active Ian Valdez MD Active CLINDAMYCIN HCL 150 MG CAPS Take 2 capsules by mouth every 8hrs for 10 days CLINDAMYCIN HCL 46086277184 Active Ian Valdez MD Active DICLOFENAC SODIUM 50 MG TBEC 1 tablet by mouth three times daily as needed DICLOFENAC SODIUM 49598720832 Active Addis William APRN Active MAGNESIUM CITRATE 1.745 GM/30ML ORAL SOLN 150ml po BID PRN Constipation 10/07 MAGNESIUM CITRATE 82862084385 Active Ian Valdez MD Active BUSPIRONE HCL 7.5 MG ORAL TABS 1 TAB PO BID PRN ANXIETY BUSPIRONE HCL 00425862542 Active Addis William APRN Active MEDROL (REBEKAH) 4 MG TABS 6 tabs on day 1, 5 tabs on day 2, 4 tabs on day 3, 3 tabs on day 4, 2 tabs on day 5, 1 tab on day 6 METHYLPREDNISOLONE 01759915744 No Longer Active Herminia Bear Active MELOXICAM 15 MG TABS 1 po q day for pain with food MELOXICAM 83585315820 Active Ian Valdez MD Active DOXYCYCLINE HYCLATE 100 MG CAP 1 cap by mouth twice daily DOXYCYCLINE HYCLATE 07380194685 No Longer Active Najma Vaughn APRN Active MULTIVITAMINS CAPS 1 tablet daily MULTIPLE VITAMIN 70399298838 Active Juan Smith MD Active CYCLOBENZAPRINE HCL 10 MG TABS 1/2 - 1 tab by mouth three times daily if needed for spasms/pain CYCLOBENZAPRINE HCL 50749678391 Active Addis William APRN Active GLUCOPHAGE 500 MG TABS 1 tab BID with morning and night meals METFORMIN HCL 04352227598 Active Eva Ferrara MD PhD Active PROGESTERONE MICRONIZED 100 MG CAPS 2 caps daily day 16 thru 25 of cycle 2013 PROGESTERONE MICRONIZED 13099228084 Active Eva Ferrara MD PhD Active TERBINAFINE HCL 1 % CREA Apply bid to rash TERBINAFINE HCL 23196316473 No Longer Active Eva Ferrara MD PhD Active TOPAMAX 25 MG TABS 1 tab po qhs x 1 week, then take 2 tabs po qhs TOPIRAMATE 86894860659 No Longer Active Thom Gilbert MD Active ULTRAM 50 MG TAB take 1 tab po q6hrs prn pain TRAMADOL HCL 33448969692 Active Addis William APRN Active LAMISIL AT 1 % CREA apply bid to rash TERBINAFINE HCL 50389056820 No Longer Active Thom Gilbert MD Active TERBINAFINE HCL 250 MG TABS 1 qDay TERBINAFINE HCL 77812215294 No Longer Active Ian Valdez MD Active XANAX 0.25 MG TABS take 1 tab po bid prn anxiety. ALPRAZOLAM 25655781686 No Longer Active Ian Valdez MD Active FISH OIL 1000 MG CAPS 2 caps PO once daily at bedtime OMEGA-3 FATTY ACIDS 34922487570 No Longer Active Ian Valdez MD Active KLOR-CON M20 20 MEQ CR-TABS take 1 tab po qday with lasix POTASSIUM CHLORIDE GALILEO CR 36383932156 Active Ian Valdez MD Active LASIX 20 MG TAB 1 tablet by mouth daily prn swelling FUROSEMIDE 56120194135 Active Ian Valdez MD Active FLONASE 50 MCG/ACT SUSP 2 puffs in each nostril once daily at bedtime FLUTICASONE PROPIONATE 20441809775 Active Ian Valdez MD Active CVS MELATONIN 3 MG TABS 2 tabs PO at bedtime MELATONIN 35845267852 Active Ian Valdez MD Active PULMICORT FLEXHALER 180 MCG/ACT AEPB 2 INH BID BUDESONIDE 88186571207 No Longer Active Ian Valdez MD Active METFORMIN HCL 500 MG TB24 1 TAB PO Q HS METFORMIN HCL 74296179945 No Longer Active Ian Valdez MD Active CYCLOBENZAPRINE HCL 10 MG TABS 1 PO q 8 hrs PRN muscle spasm 2012 CYCLOBENZAPRINE HCL 55153164570 No Longer Active Ian Valdez MD Active AZITHROMYCIN 500 MG TABS 1 PO q day x 6 days AZITHROMYCIN 33889783093 No Longer Active Ian Valdez MD Active CIPRO 500 MG TAB 1 tablet by mouth twice daily CIPROFLOXACIN HCL 80585274278 No Longer Active Ian Valdez MD Active PREDNISONE 20 MG TABS 3 qd x 2d, 2 qd x 2d, 1 qd x 2d, 1/2 qd x 2d PREDNISONE 09258676199 No Longer Active Law FIGUEROA Active CELEXA 40 MG TABS 2 PO DAILY CITALOPRAM HYDROBROMIDE 61706224879 Active Ian Valdez MD Active OMEPRAZOLE 20 MG CPDR 1 tablet by mouth daily OMEPRAZOLE 55272999309 No Longer Active Wellington FIGUEROA Active KLONOPIN 0.5 MG TABS 1 TABLET PO PRN CLONAZEPAM 88566096785 No Longer Active Wellington FIGUEROA Active MOBIC 7.5 MG TABS 1 tablet by mouthonce a day MELOXICAM 81918435848 No Longer Active Wellington FIGUEROA Active ZITHROMAX 1 GM PACK DIRECTED AZITHROMYCIN 89339621290 No Longer Active Ian Valdez MD Active ALBUTEROL SULFATE 0.083 % NEBU SOLJeanette one vial per nebulizer every 4-6 hours as needed ALBUTEROL SULFATE 77609451601 Active Ian Valdez MD Active CHANTIX STARTING MONTH REBEKAH 0.5 MG X 11 & 1 MG X 42 TABS 0.5mg daily for 3 days , then 0.5mg BID for 4 days, then 1mg BID VARENICLINE TARTRATE 62651429515 No Longer Active Ian Valdez MD Active ZITHROMAX 1 GM PACK DIRECTED AZITHROMYCIN 15302242295 No Longer Active Ian Valdez MD Active AURALGAN 1.4-5.5 % SOLN BENZOCAINE-ANTIPYRINE 43151867651 No Longer Active Ian Valdez MD Active PREDNISONE 20 MG TAB 3 tabs daily for 3 days, 2 tab daily for 3 days, 1 tab daily for 2 days, then 1/2 tab dialy for 2 days PREDNISONE 71613095958 No Longer Active Ian Valdez MD Active SIMVASTATIN 40 MG TABS 1 TABLET PO Q HS SIMVASTATIN 50517449046 Active Ian Valdez MD Active SIMVASTATIN 80 MG TABS Take one by mouth daily SIMVASTATIN 84182016151 No Longer Active Ian Valdez MD Active PREDNISONE 20 MG TAB 2 tabs daily for 3 days, 1 tab daily for 3 days, 1/2 tab daily for 2 days PREDNISONE 98332773523 No Longer Active Ian Valdez MD Active ZITHROMAX 250 MG TAB 2 po today, then 1 po q days 2-5 AZITHROMYCIN 23447004893 No Longer Active Ian Valdez MD Active TRAZODONE HCL 100 MG TABS 2 TABS PO Q HS TRAZODONE HCL 71456918535 Active Addis William APRN Active ZITHROMAX 250 MG TAB 2 po today, then 1 po q days 2-5 AZITHROMYCIN 26972861868 No Longer Active Ian Valdez MD Active SIMVASTATIN 80 MG TABS Take one by mouth daily SIMVASTATIN 80 MG TABS 762775 SIMVASTATIN Inactive AURALGAN 1.4-5.5 % SOLN AURALGAN 1.4-5.5 % SOLN BENZOCAINE-ANTIPYRINE Inactive ZITHROMAX 1 GM PACK DIRECTED ZITHROMAX 1 GM PACK 275796 AZITHROMYCIN Inactive CHANTIX STARTING MONTH REBEKAH 0.5 MG X 11 & 1 MG X 42 TABS 0.5mg daily for 3 days , then 0.5mg BID for 4 days, then 1mg BID CHANTIX STARTING MONTH REBEKAH 0.5 MG X 11 & 1 MG X 42 TABS VARENICLINE TARTRATE Inactive ZITHROMAX 1 GM PACK DIRECTED ZITHROMAX 1 GM PACK 155017 AZITHROMYCIN Inactive MOBIC 7.5 MG TABS 1 tablet by mouthonce a day MOBIC 7.5 MG TABS 346701 MELOXICAM Inactive KLONOPIN 0.5 MG TABS 1 TABLET PO PRN KLONOPIN 0.5 MG TABS 826459 CLONAZEPAM Inactive CIPRO 500 MG TAB 1 tablet by mouth twice daily CIPRO 500 MG TAB 887821 CIPROFLOXACIN HCL Inactive AZITHROMYCIN 500 MG TABS 1 PO q day x 6 days AZITHROMYCIN 500 MG TABS 3899678 AZITHROMYCIN Inactive CYCLOBENZAPRINE HCL 10 MG TABS 1 PO q 8 hrs PRN muscle spasm 2012 CYCLOBENZAPRINE HCL 10 MG TABS 094500 CYCLOBENZAPRINE HCL Inactive METFORMIN HCL 500 MG [...] bid prn anxiety. XANAX 0.25 MG TABS 725042 ALPRAZOLAM Inactive LAMISIL AT 1 % CREA apply bid to rash LAMISIL AT 1 % CREA 404414 TERBINAFINE HCL Inactive TOPAMAX 25 MG TABS 1 tab po qhs x 1 week, then take 2 tabs po qhs TOPAMAX 25 MG TABS 350232 TOPIRAMATE Inactive TERBINAFINE HCL 1 % CREA Apply bid to rash TERBINAFINE HCL 1 % CREA 477122 TERBINAFINE HCL Inactive BENZACLIN 1-5 % EXT GEL apply to face BID for acne. BENZACLIN 1-5 % EXT GEL 334397 CLINDAMYCIN PHOS-BENZOYL PEROX Inactive ZITHROMAX 250 MG TAB 2 po today, then 1 po q days 2-5 ZITHROMAX 250 MG TAB 5839000 AZITHROMYCIN Inactive ZITHROMAX 250 MG TAB 2 po today, then 1 po q days 2-5 ZITHROMAX 250 MG TAB 5087864 AZITHROMYCIN Inactive PREDNISONE 20 MG TAB 2 tabs daily for 3 days, 1 tab daily for 3 days, 1/2 tab daily for 2 days PREDNISONE 20 MG TAB 324018 PREDNISONE Inactive PREDNISONE 20 MG TAB 3 tabs daily for 3 days, 2 tab daily for 3 days, 1 tab daily for 2 days, then 1/2 tab dialy for 2 days PREDNISONE 20 MG TAB 345596 PREDNISONE Inactive OMEPRAZOLE 20 MG CPDR 1 tablet by mouth daily OMEPRAZOLE 20 MG CPDR 698794 OMEPRAZOLE Inactive PREDNISONE 20 MG TABS 3 qd x 2d, 2 qd x 2d, 1 qd x 2d, 1/2 qd x 2d PREDNISONE 20 MG TABS 122443 PREDNISONE Inactive TERBINAFINE HCL 250 MG TABS 1 qDay TERBINAFINE HCL 250 MG TABS 951322 TERBINAFINE HCL Inactive DOXYCYCLINE HYCLATE 100 MG CAP 1 cap by mouth twice daily DOXYCYCLINE HYCLATE 100 MG CAP 4834275 DOXYCYCLINE HYCLATE Inactive MEDROL (REBEKAH) 4 MG [...] and acellular pertussis vaccine, adsorbed), booster Boostrix [[id number]] tetanus toxoid, reduced diphtheria toxoid, and acellular [...] MICROALBUMIN - Chemistry sodium, serum 141 mmol/L 624-089 4453/10/27 potassium, serum 4.5 mmol/L 3.5-5.2 chloride, serum [...] surface antigen NON-REACTIVE NON-REACTIVE Lab Report: HIV-1/2 Agn/Ritu/05402, Chlamydia/GC APTIMA/62155 - Lab chlamydia DNA probe NOT DETECTED NOT DETECTED Lab Report: HIV-1/2 Agn/Ritu/03024, Chlamydia/GC APTIMA/42747 - Microbiology Neisseria gonorrhoeae DNA probe NOT DETECTED NOT DETECTED Lab Report: [facility] [place] - Chemistry human chorionic gonadotropin, urine, qualitative (urine test) Negative Negative Office Visit: Med Check / Labs - Chemistry cholesterol, target level 200 mg/dL LDL target level 100 mg/dL HDL cholesterol, serum, target level 40 mg/dL triglyceride, target level 150 mg/dL Encounters Code Encounter Date Provider Facility CPT-71775 Level 3 Est. Patient 11:15:53 GAS LINE REPAIRER Ian Valdez MD [facility] CPT-91366 Level 3 Est. Patient 15:20:49 GAS LINE REPAIRER Law FIGUEROA [facility] CPT-56132 Level 4 Est. Patient 22:41:22 CDT Ian Valdez MD [facility] CPT-18083 Level 3 Est. Patient 17:03:54 CDT Carlos Mccormack MD [facility] CPT-58602 Level 3 Est. Patient 20:15:16 CDT Ian Valdez MD [facility] CPT-62742 Level 3 Est. Patient 13:49:34 CDT Ian Valdez MD [facility] CPT-53938 Level 3 Est. Patient 15:50:27 GAS LINE REPAIRER Najma Vaughn APRN [facility] CPT-26625 Level 4 Est. Patient 21:20:00 GAS LINE REPAIRER Ian Valdez MD [facility] CPT-10294 Level 3 Est. Patient 15:32:41 GAS LINE REPAIRER Juan Smith MD [facility] CPT-46912 Level 3 Est. Patient 14:45:01 CDT Eva Ferrara MD PhD [facility] CPT-69793 Level 3 Est. Patient 14:54:10 CDT Ian Valdez MD [facility] [place]-88451 Level 4 Est. Patient 20:36:52 CDT Ian Valdez MD [facility] [place]-39724 Level 4 Est. Patient 11:14:30 GAS LINE REPAIRER Ian Valdez MD [facility] [place]-76618 Level 3 Est. Patient 19:08:34 GAS LINE REPAIRER Ian Valdez MD [facility] [place]-81971 Level 3 Est. Patient 13:17:39 GAS LINE REPAIRER Ian Valdez MD [facility] [place]-69893 Level 4 Est. Patient 18:56:10 CDT Ian Valdez MD [facility] [place]-73659 Level 4 Est. Patient 16:55:56 CDT Ian Valdez MD [facility] [place]-12719 Level 3 Est. Patient 11:27:07 CDT Ian Valdez MD [facility] [place]-96775 Level 3 Est. Patient 15:17:44 CDT Law Rosas [facility]-30097 Level 4 Est. Patient 15:13:53 CDT Wellington Muniz [facility]-62527 Level 3 Est. Patient 14:25:12 GAS LINE REPAIRER Ian Valdez MD [facility] [place]-58719 Level 3 Est. Patient 10:24:46 CDT Ian Valdez MD [facility] [place]-81459 Level 3 Est. Patient 15:34:19 CDT Ian Valdez MD [facility] [place]-57704 Level 3 Est. Patient 14:22:41 CDT Ian Valdez MD [facility] [place]-08920 Level 3 Est. Patient 15:07:22 GAS LINE REPAIRER Ian Valdez MD [facility] CPT-63325 Level 3 New Patient 09:06:43 GAS LINE REPAIRER Ian Valdez MD [facility] CPT-49891 Level 3 Est. Patient 15:09:00 GAS LINE REPAIRER Ian Valdez MD [facility] Procedures Code Procedure Name Date Entry Date Standard Description CPT-J2930 Solu Medrol 125 mg (Methyl Prednisolone Sodium Succinate) 17:46:24 GAS LINE REPAIRER CPT-J1055 Depo-Provera Injection only 150 mg 12:08:04 CDT CPT-J2930 Solu Medrol 125 mg (Methyl Prednisolone Sodium Succinate) 09:17:43 GAS LINE REPAIRER CPT-12341 Abx/Therapy Injection 09:17:43 GAS LINE REPAIRER CPT-J2930 Solu Medrol 125 mg (Methyl Prednisolone Sodium Succinate) 13:19:04 GAS LINE REPAIRER CPT-93936 Abx/Therapy Injection 13:19:04 GAS LINE REPAIRER CPT-J2930 Solu Medrol 125 mg (Methyl Prednisolone Sodium Succinate) 11:15:53 GAS LINE REPAIRER CPT-J1050 Depo Provera 150 mg (Medroxyprogesterone) 13:45:44 CDT CPT-98797 Abx/Therapy Injection 13:45:44 CDT CPT-J1050 Depo Provera 150 mg (Medroxyprogesterone) 15:27:21 CDT CPT-16665 Abx/Therapy Injection 15:27:21 CDT CPT-44243 Abd compl w upright 17:11:01 CDT CPT-OV Office Visit 16:24:22 CDT CPT-OV Office Visit 15:15:29 GAS LINE REPAIRER CPT-OV Office Visit 15:49:26 GAS LINE REPAIRER CPT-J1885 Toradol 60 mg (Ketorolac) 15:37:32 CDT CPT-98275 Abx/Therapy Injection 15:37:32 CDT CPT-J1885 Toradol 60 mg (Ketorolac) 14:45:01 CDT CPT-OV Office Visit 15:19:52 CDT CPT-OV Office Visit 10:41:01 CDT CPT-92173 Core biop breast wo imaging 16:50:06 CDT CPT-OV Office Visit 16:50:05 CDT CPT-92794 UHCG (floor use only) 13:39:36 CDT CPT-58433 Nexplanon Placement 10:11:48 CDT CPT-J7307 Nexplanon (Implant) 10:11:48 CDT CPT-OV Office Visit 09:54:18 CDT CPT-98179 EKG Trac and Interp 16:50:19 CDT CPT-69849 Venipuncture Draw Fee 15:06:08 CDT CPT-J2930 Solu Medrol 125 mg (Methyl Prednisolone Sodium Succinate) 12:44:46 CDT CPT-J1055 Depo Provera 150 mg (Medroxyprogesterone) 12:44:46 CDT CPT-87597 Abx/Therapy Injection 12:44:46 CDT CPT-J1055 Depo Provera 150 mg (Medroxyprogesterone) 14:28:41 CDT CPT-J2930 Solu Medrol 125 mg (Methyl Prednisolone Sodium Succinate) 14:22:41 CDT CPT-48477 Administration single or combination vaccine inc oral 10 :08:06 CDT CPT-58791 Tdap 10:08:06 CDT CPT-G0402 Wlcm To Medicare Ex 22:17:30 CDT CPT-84722 Venipuncture Draw Fee 10:33:07 GAS LINE REPAIRER CPT-14242 Venipuncture Draw Fee 10:17:37 GAS LINE REPAIRER CPT-G0403 EKG Wl To Medicare 22:17:30 CDT
--- OUTSIDE RECORDS SUMMARY | 2018-07-17 21:03 | XMS REPORT | Clinical Summary ---
Author Author Admin, ARIAN Organization [facility] Address Unknown Phone Unavailable Allergies, Adverse [...] HISTORY OF ISCHEMIC HEART DISEASE V17.3 Resolved aIn Valdez MD Family history of ischemic heart [...] Ian Valdez MD SINUSITIS ICD-473.9 Inactive Thom Gilebrt MD CONTACT DERMATITIS DUE TO POISON CARINE [...] po BID PRN Constipation 10/07 MAGNESIUM CITRATE 32684470310 Active Carlos Mccormack MD Active DICLOFENAC SODIUM 50 MG ORAL TBEC TID PRN DICLOFENAC SODIUM 55591726953 Active Ian Valdez MD Active BUSPIRONE HCL 7.5 MG ORAL TABS 1 TAB PO BID PRN ANXIETY BUSPIRONE HCL 16929139288 Active Herminia Bear Active MEDROL (REBEKAH) 4 MG TABS 6 tabs on day 1, 5 tabs on day 2, 4 tabs on day 3, 3 tabs on day 4, 2 tabs on day 5, 1 tab on day 6 METHYLPREDNISOLONE 28791330165 No Longer Active Herminia Chema Active MELOXICAM 15 MG TABS 1 po q day for pain with food MELOXICAM 05167341589 Active Ian Valdez MD Active DOXYCYCLINE HYCLATE 100 MG CAP 1 cap by mouth twice daily DOXYCYCLINE HYCLATE 70961079082 No Longer Active Najma Vaughn TUBE WASHER Active MULTIVITAMINS CAPS 1 tablet daily MULTIPLE VITAMIN 23942404650 Active Juan Smith MD Active CYCLOBENZAPRINE HCL 10 MG TABS 1/2 - 1 tab by mouth three times daily if needed for spasms/pain CYCLOBENZAPRINE HCL 12744555125 Active Ian Valdez MD Active GLUCOPHAGE 500 MG TABS 1 tab BID with morning and night meals METFORMIN HCL 82619392617 Active Eva Ferrara MD PhD Active PROGESTERONE MICRONIZED 100 MG CAPS 2 caps daily day 16 thru 25 of cycle 2013 PROGESTERONE MICRONIZED 37622548582 Active Eva Ferrara MD PhD Active TERBINAFINE HCL 1 % CREA Apply bid to rash TERBINAFINE HCL 41065324176 No Longer Active Eva Ferrara MD PhD Active TOPAMAX 25 MG TABS 1 tab po qhs x 1 week, then take 2 tabs po qhs TOPIRAMATE 33961713813 No Longer Active Thom Gilbert MD Active ULTRAM 50 MG TAB take 1 tab po q6hrs prn pain TRAMADOL HCL 38553029465 Active Ian Valdez MD Active LAMISIL AT 1 % CREA apply bid to rash TERBINAFINE HCL 98392184068 No Longer Active Thom Gilbert MD Active TERBINAFINE HCL 250 MG TABS 1 qDay TERBINAFINE HCL 05803268845 No Longer Active Ian Valdez MD Active XANAX 0.25 MG TABS take 1 tab po bid prn anxiety. ALPRAZOLAM 91398981080 No Longer Active Ian Valdez MD Active FISH OIL 1000 MG CAPS 2 caps PO once daily at bedtime OMEGA-3 FATTY ACIDS 84352010122 No Longer Active Ian Valdez MD Active KLOR-CON M20 20 MEQ CR-TABS take 1 tab po qday with lasix POTASSIUM CHLORIDE GALILEO CR 12294413095 Active Ian Valdez MD Active LASIX 20 MG TAB 1 tablet by mouth daily prn swelling FUROSEMIDE 58176024311 Active Ian Valdez MD Active FLONASE 50 MCG/ACT SUSP 2 puffs in each nostril once daily at bedtime FLUTICASONE PROPIONATE 85458355858 Active Ian Valdez MD Active [facility] MELATONIN 3 MG TABS 2 tabs PO at bedtime MELATONIN 30603602016 Active Ian Valdez MD Active PULMICORT FLEXHALER 180 MCG/ACT AEPB 2 INH BID BUDESONIDE 89898014203 No Longer Active Ian Valdez MD Active METFORMIN HCL 500 MG TB24 1 TAB PO Q HS METFORMIN HCL 69766455721 No Longer Active Ian Valdez MD Active CYCLOBENZAPRINE HCL 10 MG TABS 1 PO q 8 hrs PRN muscle spasm 2012 CYCLOBENZAPRINE HCL 51069742333 No Longer Active Ian Valdez MD Active AZITHROMYCIN 500 MG TABS 1 PO q day x 6 days AZITHROMYCIN 72288933213 No Longer Active Ian Valdez MD Active CIPRO 500 MG TAB 1 tablet by mouth twice daily CIPROFLOXACIN HCL 87309080175 No Longer Active Ian Valdez MD Active PREDNISONE 20 MG TABS 3 qd x 2d, 2 qd x 2d, 1 qd x 2d, 1/2 qd x 2d PREDNISONE 12230677005 No Longer Active Law FIGUEROA Active CELEXA 40 MG TABS 2 PO DAILY CITALOPRAM HYDROBROMIDE 70032982146 Active Ian Valdez MD Active OMEPRAZOLE 20 MG CPDR 1 tablet by mouth daily OMEPRAZOLE 92900819461 No Longer Active [place] FIGUEROA Active KLONOPIN 0.5 MG TABS 1 TABLET PO PRN CLONAZEPAM 10982814639 No Longer Active [place] FIGUEROA Active MOBIC 7.5 MG TABS 1 tablet by mouthonce a day MELOXICAM 20753962418 No Longer Active [place] FIGUEROA Active ZITHROMAX 1 GM PACK DIRECTED AZITHROMYCIN 62329510118 No Longer Active Ian Valdez MD Active ALBUTEROL SULFATE 0.083 % NEBU SOLN one vial per nebulizer every 4-6 hours as needed ALBUTEROL SULFATE 66516383180 Active Ian Valdez MD Active CHANTIX STARTING MONTH REBEKAH 0.5 MG X 11 & 1 MG X 42 TABS 0.5mg daily for 3 days , then 0.5mg BID for 4 days, then 1mg BID VARENICLINE TARTRATE 59501262908 No Longer Active Ian Valdez MD Active ZITHROMAX 1 GM PACK DIRECTED AZITHROMYCIN 15100565980 No Longer Active Ian Valdez MD Active AURALGAN 1.4-5.5 % SOLN BENZOCAINE-ANTIPYRINE 28765139734 No Longer Active Ian Valdez MD Active PREDNISONE 20 MG TAB 3 tabs daily for 3 days, 2 tab daily for 3 days, 1 tab daily for 2 days, then 1/2 tab dialy for 2 days PREDNISONE 40796880495 No Longer Active Ian Valdez MD Active SIMVASTATIN 40 MG TABS 1 TABLET PO Q HS SIMVASTATIN 71109788804 Active Ian Valdez MD Active SIMVASTATIN 80 MG TABS Take one by mouth daily SIMVASTATIN 96273484627 No Longer Active Ian Valdez MD Active PREDNISONE 20 MG TAB 2 tabs daily for 3 days, 1 tab daily for 3 days, 1/2 tab daily for 2 days PREDNISONE 83522706218 No Longer Active Ian Valdez MD Active ZITHROMAX 250 MG TAB 2 po today, then 1 po q days 2-5 AZITHROMYCIN 59077127587 No Longer Active Ian Valdez MD Active TRAZODONE HCL 100 MG TABS 2 TABS PO Q HS TRAZODONE HCL 64644176701 Active Ian Valdez MD Active ZITHROMAX 250 MG TAB 2 po today, then 1 po q days 2-5 AZITHROMYCIN 79310741297 No Longer Active Ian Valdez MD Active SIMVASTATIN 80 MG TABS Take one by mouth daily SIMVASTATIN 80 MG TABS 824776 SIMVASTATIN Inactive AURALGAN 1.4-5.5 % SOLN AURALGAN 1.4-5.5 % SOLN BENZOCAINE-ANTIPYRINE Inactive ZITHROMAX 1 GM PACK DIRECTED ZITHROMAX 1 GM PACK 467848 AZITHROMYCIN Inactive CHANTIX STARTING MONTH REBEKAH 0.5 MG X 11 & 1 MG X 42 TABS 0.5mg daily for 3 days , then 0.5mg BID for 4 days, then 1mg BID CHANTIX STARTING MONTH REBEKAH 0.5 MG X 11 & 1 MG X 42 TABS VARENICLINE TARTRATE Inactive ZITHROMAX 1 GM PACK DIRECTED ZITHROMAX 1 GM PACK 965730 AZITHROMYCIN Inactive MOBIC 7.5 MG TABS 1 tablet by mouthonce a day MOBIC 7.5 MG TABS 150613 MELOXICAM Inactive KLONOPIN 0.5 MG TABS 1 TABLET PO PRN KLONOPIN 0.5 MG TABS 919193 CLONAZEPAM Inactive CIPRO 500 MG TAB 1 tablet by mouth twice daily CIPRO 500 MG TAB 952423 CIPROFLOXACIN HCL Inactive AZITHROMYCIN 500 MG TABS 1 PO q day x 6 days AZITHROMYCIN 500 MG TABS 4262370 AZITHROMYCIN Inactive CYCLOBENZAPRINE HCL 10 MG TABS 1 PO q 8 hrs PRN muscle spasm 2012 CYCLOBENZAPRINE HCL 10 MG TABS 037328 CYCLOBENZAPRINE HCL Inactive METFORMIN HCL 500 MG [...] bid prn anxiety. XANAX 0.25 MG TABS 983422 ALPRAZOLAM Inactive LAMISIL AT 1 % CREA apply bid to rash LAMISIL AT 1 % CREA 505433 TERBINAFINE HCL Inactive TOPAMAX 25 MG TABS 1 tab po qhs x 1 week, then take 2 tabs po qhs TOPAMAX 25 MG TABS 743668 TOPIRAMATE Inactive TERBINAFINE HCL 1 % CREA Apply bid to rash TERBINAFINE HCL 1 % CREA 804789 TERBINAFINE HCL Inactive ZITHROMAX 250 MG TAB 2 po today, then 1 po q days 2-5 ZITHROMAX 250 MG TAB 9244133 AZITHROMYCIN Inactive ZITHROMAX 250 MG TAB 2 po today, then 1 po q days 2-5 ZITHROMAX 250 MG TAB 6335458 AZITHROMYCIN Inactive PREDNISONE 20 MG TAB 2 tabs daily for 3 days, 1 tab daily for 3 days, 1/2 tab daily for 2 days PREDNISONE 20 MG TAB 287599 PREDNISONE Inactive PREDNISONE 20 MG TAB 3 tabs daily for 3 days, 2 tab daily for 3 days, 1 tab daily for 2 days, then 1/2 tab dialy for 2 days PREDNISONE 20 MG TAB 469134 PREDNISONE Inactive OMEPRAZOLE 20 MG CPDR 1 tablet by mouth daily OMEPRAZOLE 20 MG CPDR 056797 OMEPRAZOLE Inactive PREDNISONE 20 MG TABS 3 qd x 2d, 2 qd x 2d, 1 qd x 2d, 1/2 qd x 2d PREDNISONE 20 MG TABS 498172 PREDNISONE Inactive TERBINAFINE HCL 250 MG TABS 1 qDay TERBINAFINE HCL 250 MG TABS 052932 TERBINAFINE HCL Inactive DOXYCYCLINE HYCLATE 100 MG CAP 1 cap by mouth twice daily DOXYCYCLINE HYCLATE 100 MG CAP 1793613 DOXYCYCLINE HYCLATE Inactive MEDROL (REBEKAH) 4 MG [...] and acellular pertussis vaccine, adsorbed), booster Boostrix [[id number]] tetanus toxoid, reduced diphtheria toxoid, and acellular [...] 1.44 m[iU]/mL 0.36-3.74 cholesterol, serum 144 mg/dL 397-191 0101/11/19 triglyceride, serum, fasting 172 mg/dL 30-200 HDL cholesterol, serum 30 mg/dL 32-96 LDL cholesterol, serum 80 mg/dL 0-130 sodium, serum 137 mmol/L 646-169 1057/11/19 potassium, serum 4.1 mmol/L 3.5-5.2 chloride, serum 100 mmol/L 98-107 carbon dioxide, venous blood 26.9 mmol/L 21.0-32.0 blood glucose 84 mg/dL 65-110 urea nitrogen, blood 11 mg/dL 7-18 creatinine, serum 0.90 mg/dL 0.60-1.30 alanine aminotransferase (SGPT), serum 23 U/L 12-78 aspartate aminotransferase (SGOT), serum 17 U/L 15-37 calcium, serum 9.5 mg/dL 8.5-10.1 bilirubin, serum, total 0.70 mg/dL 0.00-1.00 Lab Report: HIV-1/2 Agn/Ritu/76700, Chlamydia/GC APTIMA/80453 - Lab chlamydia DNA probe NOT DETECTED NOT DETECTED Lab Report: HIV-1/2 Agn/Ritu/58858, Chlamydia/GC APTIMA/23304 - Microbiology Neisseria gonorrhoeae DNA probe NOT DETECTED NOT DETECTED Lab Report: TONY INFLUENZA A/B - Toxicology rapid flu test Negative Negative;Positive [place] [facility] [place] human chorionic gonadotropin, urine, qualitative (urine test) Negative Negative Office Visit: wellness exam for insurance/ diabetes check - Chemistry cholesterol, target level 200 mg/dL LDL target level 100 mg/dL HDL cholesterol, serum, target level 40 mg/dL triglyceride, target level 150 mg/dL Encounters Code Encounter Date Provider Facility CPT-78930 Level 3 Est. Patient 17:03:54 CDT Carlos Mccormack MD [facility] CPT-63638 Level 3 Est. Patient 20:15:16 CDT Ian Valdez MD [facility] CPT-55631 Level 3 Est. Patient 13:49:34 CDT Ian Valdez MD [facility] CPT-45818 Level 3 Est. Patient 15:50:27 SET UP [employer] Najma Vaughn APRN [facility] CPT-98396 Level 4 Est. Patient 21:20:00 SET UP [employer] MACH[employer] Ian Valdez MD [facility] CPT-72576 Level 3 Est. Patient 15:32:41 SET UP [employer] Juan Smith MD [facility] CPT-73763 Level 3 Est. Patient 14:45:01 CDT Eva Ferrara MD PhD [facility] CPT-60758 Level 3 Est. Patient 14:54:10 CDT Ian Valdez MD [facility] CPT-63930 Level 4 Est. Patient 20:36:52 CDT Ian Valdez MD [facility] CPT-17109 Level 4 Est. Patient 11:14:30 SET UP [employer] MACHINE Ian Valdez MD [facility] CPT-97631 Level 3 Est. Patient 19:08:34 SET UP [employer] MACHINE Ian Valdez MD [facility] CPT-82423 Level 3 Est. Patient 13:17:39 SET UP [employer] MACH[employer] Ian Valdze MD [facility] CPT-58238 Level 4 Est. Patient 18:56:10 CDT Ian Valdez MD [facility] CPT-93247 Level 4 Est. Patient 16:55:56 CDT Ian Valdez MD [facility] CPT-27936 Level 3 Est. Patient 11:27:07 CDT Ian Valdez MD [facility] CPT-30219 Level 3 Est. Patient 15:17:44 CDT Law Rosas [facility] CPT-19122 Level 4 Est. Patient 15:13:53 CDT Wellington Muniz [facility] CPT-22760 Level 3 Est. Patient 14:25:12 SET UP [employer] MACHINE Ian Valdez MD [facility] CPT-74580 Level 3 Est. Patient 10:24:46 CDT Ian Valdez MD [facility] CPT-95039 Level 3 Est. Patient 15:34:19 CDT Ian Valdez MD [facility] CPT-28163 Level 3 Est. Patient 14:22:41 CDT Ian Valdez MD [facility] CPT-37302 Level 3 Est. Patient 15:07:22 SET UP [employer] MACHINE Ian Valdez MD [facility] CPT-64174 Level 3 New Patient 09:06:43 SET UP [employer] MACH[employer] Ian Valdez MD [facility] CPT-30883 Level 3 Est. Patient 15:09:00 SET UP [employer] MACH[employer] Ian Valdez MD [facility] Procedures Code Procedure Name Date Entry Date Standard Description CPT-J1050 Depo Provera 150 mg (Medroxyprogesterone) 15:27:21 CDT CPT-64792 Abx/Therapy Injection 15:27:21 CDT CPT-34079 Abd compl w upright 17:11:01 CDT CPT-OV Office Visit 16:24:22 CDT CPT-OV Office Visit 15:15:29 SET UP [employer] MACHINE CPT-OV Office Visit 15:49:26 SET UP [employer] M[employer] CPT-J1885 Toradol 60 mg (Ketorolac) 15:37:32 CDT CPT-01462 Abx/Therapy Injection 15:37:32 CDT CPT-J1885 Toradol 60 mg (Ketorolac) 14:45:01 CDT CPT-OV Office Visit 15:19:52 CDT CPT-OV Office Visit 10:41:01 CDT CPT-41847 Core biop breast wo imaging 16:50:06 CDT CPT-OV Office Visit 16:50:05 CDT CPT-33762 UHCG (floor use only) 13:39:36 CDT CPT-23060 Nexplanon Placement 10:11:48 CDT CPT-J7307 Nexplanon (Implant) 10:11:48 CDT CPT-OV Office Visit 09:54:18 CDT CPT-44419 EKG Trac and Interp 16:50:19 CDT CPT-62755 Venipuncture Draw Fee 15:06:08 CDT CPT-J2930 Solu Medrol 125 mg (Methyl Prednisolone Sodium Succinate) 12:44:46 CDT CPT-J1055 Depo Provera 150 mg (Medroxyprogesterone) 12:44:46 CDT CPT-75445 Abx/Therapy Injection 12:44:46 CDT CPT-J1055 Depo Provera 150 mg (Medroxyprogesterone) 14:28:41 CDT CPT-J2930 Solu Medrol 125 mg (Methyl Prednisolone Sodium Succinate) 14:22:41 CDT CPT-99341 Administration single or combination vaccine inc oral 10 :08:06 CDT CPT-65578 Tdap 10:08:06 CDT CPT-G0402 Wlcm To Medicare Ex 22:17:30 CDT CPT-82489 Venipuncture Draw Fee 10:33:07 SET UP [employer] MACHINE CPT-14226 Venipuncture Draw Fee 10:17:37 SET UP [employer] MACHINE CPT-G0403 EKG Wlc To Medicare 22:17:30 CDT
--- OUTSIDE RECORDS SUMMARY | 2018-07-17 21:04 | XMS REPORT | Clinical Summary ---
Author Author Admin, ARIAN Organization [facility] Address Unknown Phone Unavailable Allergies, Adverse Reactions, [...] unspecified site BRONCHITIS, ACUTE 466.0 Resolved Ian Vadlez MD Acute bronchitis SHOULDER PAIN, RIGHT 719.41 [...] MG ORAL TBEC TID PRN DICLOFENAC SODIUM 89439761927 Active Nataliya Lozada Active BUSPIRONE HCL 7.5 MG ORAL TABS 1 TAB PO BID PRN ANXIETY BUSPIRONE HCL 76142998773 Active Herminia Bear Active MEDROL (REBEKAH) 4 MG TABS 6 tabs on day 1, 5 tabs on day 2, 4 tabs on day 3, 3 tabs on day 4, 2 tabs on day 5, 1 tab on day 6 METHYLPREDNISOLONE 08491390811 No Longer Active Herminia Bear Active MELOXICAM 15 MG TABS 1 po q day for pain with food MELOXICAM 83082413748 Active Ian Valdez MD Active DOXYCYCLINE HYCLATE 100 MG CAP 1 cap by mouth twice daily DOXYCYCLINE HYCLATE 47463405927 No Longer Active Najma Vaughn APRN Active MULTIVITAMINS CAPS 1 tablet daily MULTIPLE VITAMIN 30390410578 Active Juan Smith MD Active CYCLOBENZAPRINE HCL 10 MG TABS 1/2 - 1 tab by mouth three times daily if needed for spasms/pain CYCLOBENZAPRINE HCL 02338722657 Active Ian Valdez MD Active GLUCOPHAGE 500 MG TABS 1 tab BID with morning and night meals METFORMIN HCL 29558380623 Active Eva Ferrara MD PhD Active PROGESTERONE MICRONIZED 100 MG CAPS 2 caps daily day 16 thru 25 of cycle 2013 PROGESTERONE MICRONIZED 14511402422 Active Eva Ferrara MD PhD Active TERBINAFINE HCL 1 % CREA Apply bid to rash TERBINAFINE HCL 91602085942 No Longer Active Eva Ferrara MD PhD Active TOPAMAX 25 MG TABS 1 tab po qhs x 1 week, then take 2 tabs po qhs TOPIRAMATE 95913487279 No Longer Active Thom Gilbert MD Active ULTRAM 50 MG TAB take 1 tab po q6hrs prn pain TRAMADOL HCL 79096139606 Active Grayson Josue DO Active LAMISIL AT 1 % CREA apply bid to rash TERBINAFINE HCL 05098420406 No Longer Active Thom Gilbert MD Active TERBINAFINE HCL 250 MG TABS 1 qDay TERBINAFINE HCL 76437366071 No Longer Active Ian Valdez MD Active XANAX 0.25 MG TABS take 1 tab po bid prn anxiety. ALPRAZOLAM 33523277468 No Longer Active Ian Valdez MD Active FISH OIL 1000 MG CAPS 2 caps PO once daily at bedtime OMEGA-3 FATTY ACIDS 69566974881 No Longer Active Ian Valdez MD Active KLOR-CON M20 20 MEQ CR-TABS take 1 tab po qday with lasix POTASSIUM CHLORIDE GALILEO CR 37956435075 Active Ian Valdez MD Active LASIX 20 MG TAB 1 tablet by mouth daily prn swelling FUROSEMIDE 16389365275 Active Ian Valdez MD Active FLONASE 50 MCG/ACT SUSP 2 puffs in each nostril once daily at bedtime FLUTICASONE PROPIONATE 26141442603 Active Ian Valdez MD Active [facility] MELATONIN 3 MG TABS 2 tabs PO at bedtime MELATONIN 27508152464 Active Ian Valdez MD Active PULMICORT FLEXHALER 180 MCG/ACT AEPB 2 INH BID BUDESONIDE 18044315085 No Longer Active Ian Valdez MD Active METFORMIN HCL 500 MG TB24 1 TAB PO Q HS METFORMIN HCL 58336958834 No Longer Active Ian Valdez MD Active CYCLOBENZAPRINE HCL 10 MG TABS 1 PO q 8 hrs PRN muscle spasm 2012 CYCLOBENZAPRINE HCL 62747489872 No Longer Active Ian Valdez MD Active AZITHROMYCIN 500 MG TABS 1 PO q day x 6 days AZITHROMYCIN 62873157746 No Longer Active Ian Valdez MD Active CIPRO 500 MG TAB 1 tablet by mouth twice daily CIPROFLOXACIN HCL 32979638835 No Longer Active Ian Valdez MD Active PREDNISONE 20 MG TABS 3 qd x 2d, 2 qd x 2d, 1 qd x 2d, 1/2 qd x 2d PREDNISONE 90953404032 No Longer Active Law FIGUEROA Active CELEXA 40 MG TABS 2 PO DAILY CITALOPRAM HYDROBROMIDE 68335440443 Active Ian Valdez MD Active OMEPRAZOLE 20 MG CPDR 1 tablet by mouth daily OMEPRAZOLE 21564128833 No Longer Active [place] FIGUEROA Active KLONOPIN 0.5 MG TABS 1 TABLET PO PRN CLONAZEPAM 08637241353 No Longer Active [place] FIGUEROA Active MOBIC 7.5 MG TABS 1 tablet by mouthonce a day MELOXICAM 79166542306 No Longer Active [place] FIGUEROA Active ZITHROMAX 1 GM PACK DIRECTED AZITHROMYCIN 78983575453 No Longer Active Ian Valdez MD Active ALBUTEROL SULFATE 0.083 % NEBU SOLN one vial per nebulizer every 4-6 hours as needed ALBUTEROL SULFATE 55306910290 Active Ian Valdez MD Active CHANTIX STARTING MONTH REBEKAH 0.5 MG X 11 & 1 MG X 42 TABS 0.5mg daily for 3 days , then 0.5mg BID for 4 days, then 1mg BID VARENICLINE TARTRATE 92083467524 No Longer Active Ian Valdez MD Active ZITHROMAX 1 GM PACK DIRECTED AZITHROMYCIN 76634643565 No Longer Active Ian Valdez MD Active AURALGAN 1.4-5.5 % SOLN BENZOCAINE-ANTIPYRINE 35102057894 No Longer Active Ian Valdez MD Active PREDNISONE 20 MG TAB 3 tabs daily for 3 days, 2 tab daily for 3 days, 1 tab daily for 2 days, then 1/2 tab dialy for 2 days PREDNISONE 24859494249 No Longer Active Ian Valdez MD Active SIMVASTATIN 40 MG TABS 1 TABLET PO Q HS SIMVASTATIN 50262571376 Active Ian Valdez MD Active SIMVASTATIN 80 MG TABS Take one by mouth daily SIMVASTATIN 27099312706 No Longer Active Ian Valdez MD Active PREDNISONE 20 MG TAB 2 tabs daily for 3 days, 1 tab daily for 3 days, 1/2 tab daily for 2 days PREDNISONE 75354871008 No Longer Active Ian Valdez MD Active ZITHROMAX 250 MG TAB 2 po today, then 1 po q days 2-5 AZITHROMYCIN 63125826386 No Longer Active Ian Valdez MD Active TRAZODONE HCL 100 MG TABS 2 TABS PO Q HS TRAZODONE HCL 42435947153 Active Ian Valdez MD Active ZITHROMAX 250 MG TAB 2 po today, then 1 po q days 2-5 AZITHROMYCIN 32355867869 No Longer Active Ian Valdez MD Active CIPRO 500 MG TAB 1 tablet by mouth twice daily CIPRO 500 MG TAB 398507 CIPROFLOXACIN HCL Inactive CYCLOBENZAPRINE HCL 10 MG TABS 1 PO q 8 hrs PRN muscle spasm 2012 CYCLOBENZAPRINE HCL 10 MG TABS 799196 CYCLOBENZAPRINE HCL Inactive DOXYCYCLINE HYCLATE 100 MG CAP 1 cap by mouth twice daily DOXYCYCLINE HYCLATE 100 MG CAP 815590 DOXYCYCLINE HYCLATE Inactive FISH OIL 1000 MG CAPS 2 caps PO once daily at bedtime FISH OIL 1000 MG CAPS OMEGA-3 FATTY ACIDS Inactive KLONOPIN 0.5 MG TABS 1 TABLET PO PRN KLONOPIN 0.5 MG TABS 716148 CLONAZEPAM Inactive PREDNISONE 20 MG TABS 3 qd x 2d, 2 qd x 2d, 1 qd x 2d, 1/2 qd x 2d PREDNISONE 20 MG TABS 751071 PREDNISONE Inactive PREDNISONE 20 MG TAB 2 tabs daily for 3 days, 1 tab daily for 3 days, 1/2 tab daily for 2 days PREDNISONE 20 MG TAB 340152 PREDNISONE Inactive PREDNISONE 20 MG TAB 3 tabs daily for 3 days, 2 tab daily for 3 days, 1 tab daily for 2 days, then 1/2 tab dialy for 2 days PREDNISONE 20 MG TAB 365544 PREDNISONE Inactive XANAX 0.25 MG TABS take 1 tab po bid prn anxiety. XANAX 0.25 MG TABS 237969 ALPRAZOLAM Inactive TERBINAFINE HCL 250 MG TABS 1 qDay TERBINAFINE HCL 250 MG TABS 583863 TERBINAFINE HCL Inactive MEDROL (REBEKAH) 4 MG TABS 6 tabs on day 1, 5 tabs on day 2, 4 tabs on day 3, 3 tabs on day 4, 2 tabs on day 5, 1 tab on day 6 MEDROL ( REBEKAH) 4 MG TABS METHYLPREDNISOLONE Inactive ZITHROMAX 1 GM PACK DIRECTED ZITHROMAX 1 GM PACK 630783 AZITHROMYCIN Inactive ZITHROMAX 1 GM PACK DIRECTED ZITHROMAX 1 GM PACK 674653 AZITHROMYCIN Inactive AZITHROMYCIN 500 MG TABS 1 PO q day x 6 days AZITHROMYCIN 500 MG TABS 4849016 AZITHROMYCIN Inactive TOPAMAX 25 MG TABS 1 tab po qhs x 1 week, then take 2 tabs po qhs TOPAMAX 25 MG TABS 525944 TOPIRAMATE Inactive ZITHROMAX 250 MG TAB 2 po today, then 1 po q days 2-5 ZITHROMAX 250 MG TAB 7686100 AZITHROMYCIN Inactive ZITHROMAX 250 MG TAB 2 po today, then 1 po q days 2-5 ZITHROMAX 250 MG TAB 8224269 AZITHROMYCIN Inactive SIMVASTATIN 80 MG TABS Take one by mouth daily SIMVASTATIN 80 MG TABS 162570 SIMVASTATIN Inactive LAMISIL AT 1 % CREA apply bid to rash LAMISIL AT 1 % CREA 204928 TERBINAFINE HCL Inactive TERBINAFINE HCL 1 % CREA Apply bid to rash TERBINAFINE HCL 1 % CREA 314118 TERBINAFINE HCL Inactive OMEPRAZOLE 20 MG CPDR 1 tablet by mouth daily OMEPRAZOLE 20 MG CPDR 247168 OMEPRAZOLE Inactive MOBIC 7.5 MG TABS 1 tablet by mouthonce a day MOBIC 7.5 MG TABS 576661 MELOXICAM Inactive METFORMIN HCL 500 MG TB24 1 TAB PO Q HS METFORMIN HCL 500 MG TB24 METFORMIN HCL Inactive PULMICORT FLEXHALER 180 MCG/ACT AEPB 2 INH BID PULMICORT FLEXHALER 180 MCG/ACT AEPB BUDESONIDE Inactive CHANTIX STARTING MONTH REBEKAH 0.5 MG X 11 & 1 MG X 42 TABS 0.5mg daily for 3 days , then 0.5mg BID for 4 days, then 1mg BID CHANTIX STARTING MONTH REBEKAH 0.5 MG X 11 & 1 MG X 42 TABS VARENICLINE TARTRATE Inactive AURALGAN 1.4-5.5 % SOLN AURALGAN 1.4-5.5 % SOLN BENZOCAINE-ANTIPYRINE Inactive Advance Directives Directive Description Start Date NO HEROIC MEASURES Immunizations Vaccine Administration Date Value Standard Description Boostrix (Tetanus toxoid, reduced diphtheria toxoid and acellular pertussis vaccine, adsorbed), booster Boostrix [DOX110] tetanus toxoid, reduced diphtheria toxoid, and acellular [...] 1.44 m[iU]/mL 0.36-3.74 cholesterol, serum 144 mg/dL 506-660 7092/11/19 triglyceride, serum, fasting 172 mg/dL 30-200 HDL cholesterol, serum 30 mg/dL 32-96 LDL cholesterol, serum 80 mg/dL 0-130 sodium, serum 137 mmol/L 327-938 5130/11/19 potassium, serum 4.1 mmol/L 3.5-5.2 chloride, serum 100 mmol/L 98-107 carbon dioxide, venous blood 26.9 mmol/L 21.0-32.0 blood glucose 84 mg/dL 65-110 urea nitrogen, blood 11 mg/dL 7-18 creatinine, serum 0.90 mg/dL 0.60-1.30 alanine aminotransferase (SGPT), serum 23 U/L 12-78 aspartate aminotransferase (SGOT), serum 17 U/L 15-37 calcium, serum 9.5 mg/dL 8.5-10.1 bilirubin, serum, total 0.70 mg/dL 0.00-1.00 Lab Report: HIV-1/2 Agn/Ritu/18972, Chlamydia/GC APTIMA/36669 - Lab chlamydia DNA probe NOT DETECTED NOT DETECTED Lab Report: HIV-1/2 Agn/Ritu/01085, Chlamydia/GC APTIMA/14380 - Microbiology Neisseria gonorrhoeae DNA probe NOT DETECTED NOT DETECTED Lab Report: TONY INFLUENZA A/B - Toxicology rapid flu test Negative Negative;Positive Office Visit: wellness exam for insurance/ diabetes check - Chemistry cholesterol, target level 200 mg/dL LDL target level 100 mg/dL HDL cholesterol, serum, target level 40 mg/dL triglyceride, target level 150 mg/dL Encounters Code Encounter Date Provider Facility CPT-48776 Level 3 Est. Patient 20:15:16 CDT Ian Valdez MD [facility]-43568 Level 3 Est. Patient 13:49:34 CDT Ian Valdez MD [facility]-97882 Level 3 Est. Patient 15:50:27 [employer] Najma Vaughn [facility] CPT-44570 Level 4 Est. Patient 21:20:00 [employer] Ian Valdez MD [facility]-93755 Level 3 Est. Patient 15:32:41 [employer] Juan Smith MD [facility]-94814 Level 3 Est. Patient 14:45:01 CDT Eva Ferrara MD PhD [facility]-84707 Level 3 Est. Patient 14:54:10 CDT Ian Valdez MD [facility]-08738 Level 4 Est. Patient 20:36:52 CDT Ian Valdez MD [facility]-19491 Level 4 Est. Patient 11:14:30 [employer] Ian Valdez MD [facility]-59682 Level 3 Est. Patient 19:08:34 [employer] Ian Valdez MD [facility]-61565 Level 3 Est. Patient 13:17:39 [employer] Ian Valdez MD [facility]-02528 Level 4 Est. Patient 18:56:10 CDT Ian Valdez MD [facility]-89441 Level 4 Est. Patient 16:55:56 CDT Ian Valdez MD [facility]-10879 Level 3 Est. Patient 11:27:07 CDT Ian Valdez MD [facility]-52873 Level 3 Est. Patient 15:17:44 CDT Law Rosas [facility] CPT-47184 Level 4 Est. Patient 15:13:53 CDT Wellington Muniz [facility] CPT-82073 Level 3 Est. Patient 14:25:12 [employer] Ian Valdez MD [facility] CPT-62233 Level 3 Est. Patient 10:24:46 CDT Ian Valdez MD [facility] CPT-59022 Level 3 Est. Patient 15:34:19 CDT Ian Valdez MD [facility] CPT-58328 Level 3 Est. Patient 14:22:41 CDT Ian Valdez MD [facility] CPT-38926 Level 3 Est. Patient 15:07:22 [employer] Ian Valdez MD [facility] CPT-31874 Level 3 New Patient 09:06:43 [employer] Ian Valdez MD [facility] CPT-34624 Level 3 Est. Patient 15:09:00 [employer] Ian Valdez MD [facility] Procedures Code Procedure Name Date Entry Date Standard Description CPT-OV Office Visit 16:24:22 CDT CPT-OV Office Visit 15:15:29 [employer] CPT-OV Office Visit 15:49:26 [employer] CPT-J1885 Toradol 60 mg (Ketorolac) 15:37:32 CDT CPT-78694 Abx/Therapy Injection 15:37:32 CDT CPT-J1885 Toradol 60 mg (Ketorolac) 14:45:01 CDT CPT-OV Office Visit 15:19:52 CDT CPT-OV Office Visit 10:41:01 CDT CPT-51393 Core biop breast wo imaging 16:50:06 CDT CPT-OV Office Visit 16:50:05 CDT CPT-30437 UHCG (floor use only) 13:39:36 CDT CPT-03008 Nexplanon Placement 10:11:48 CDT CPT-J7307 Nexplanon (Implant) 10:11:48 CDT CPT-OV Office Visit 09:54:18 CDT CPT-85560 EKG Trac and Interp 16:50:19 CDT CPT-73668 Venipuncture Draw Fee 15:06:08 CDT CPT-J2930 Solu Medrol 125 mg (Methyl Prednisolone Sodium Succinate) 12:44:46 CDT CPT-J1055 Depo Provera 150 mg (Medroxyprogesterone) 12:44:46 CDT CPT-15830 Abx/Therapy Injection 12:44:46 CDT CPT-J1055 Depo Provera 150 mg (Medroxyprogesterone) 14:28:41 CDT CPT-J2930 Solu Medrol 125 mg (Methyl Prednisolone Sodium Succinate) 14:22:41 CDT CPT-34819 Administration single or combination vaccine inc oral 10 :08:06 CDT CPT-26706 Tdap 10:08:06 CDT CPT-G0402 Wlcm To Medicare Ex 22:17:30 CDT CPT-58530 Venipuncture Draw Fee 10:33:07 [employer] CPT-95262 Venipuncture Draw Fee 10:17:37 [employer] CPT-G0403 EKG Wlc To Medicare 22:17:30 CDT
--- OUTSIDE RECORDS SUMMARY | 2018-07-17 21:05 | XMS REPORT | Clinical Summary ---
Author Author Admin, ARIAN Organization [facility] Address Unknown Phone Unavailable Allergies, Adverse Reactions, [...] PO q 8 hrs PRN pain OXYCODONE-ACETAMINOPHEN [id number] Active Law FIGUEROA Active MINOCYCLINE HCL 100 MG CAP 1 TAB PO DAILY MINOCYCLINE HCL 11089253031 Active Herminia Bear Active BENZACLIN 1-5 % EXT GEL apply to face BID for acne. CLINDAMYCIN PHOS-BENZOYL PEROX 09445809767 No Longer Active Herminia Bear Active HYDROCODONE-ACETAMINOPHEN 5-325 MG TABS 1-2 tabs by mouth every 4- 6 hours as needed HYDROCODONE-ACETAMINOPHEN 19988640716 Active Ian Valdez MD Active CLINDAMYCIN HCL 150 MG CAPS Take 2 capsules by mouth every 8hrs for 10 days CLINDAMYCIN HCL 72517826034 Active Ian Valdez MD Active DICLOFENAC SODIUM 50 MG TBEC 1 tablet by mouth three times daily as needed DICLOFENAC SODIUM 18582005354 Active Addis William [employer] Active MAGNESIUM CITRATE 1.745 GM/30ML ORAL SOLN 150ml po BID PRN Constipation 10/07 MAGNESIUM CITRATE 37995564302 Active Ian Valdez MD Active BUSPIRONE HCL 7.5 MG ORAL TABS 1 TAB PO BID PRN ANXIETY BUSPIRONE HCL 74480022808 Active Ian Valdez MD Active MEDROL (REBEKAH) 4 MG TABS 6 tabs on day 1, 5 tabs on day 2, 4 tabs on day 3, 3 tabs on day 4, 2 tabs on day 5, 1 tab on day 6 METHYLPREDNISOLONE 19754087719 No Longer Active Herminia Bear Active MELOXICAM 15 MG TABS 1 po q day for pain with food MELOXICAM 93972975749 Active Ian Valdez MD Active DOXYCYCLINE HYCLATE 100 MG CAP 1 cap by mouth twice daily DOXYCYCLINE HYCLATE 64198015812 No Longer Active Najma Vaughn APRN Active MULTIVITAMINS CAPS 1 tablet daily MULTIPLE VITAMIN 54663987243 Active Juan Smith MD Active CYCLOBENZAPRINE HCL 10 MG TABS 1/2 - 1 tab by mouth three times daily if needed for spasms/pain CYCLOBENZAPRINE HCL 35802903649 Active Addis William APRN Active GLUCOPHAGE 500 MG TABS 1 tab BID with morning and night meals METFORMIN HCL 95242879846 Active Eva Ferrara MD PhD Active PROGESTERONE MICRONIZED 100 MG CAPS 2 caps daily day 16 thru 25 of cycle 2013 PROGESTERONE MICRONIZED 15575886592 Active Eva Ferrara MD PhD Active TERBINAFINE HCL 1 % CREA Apply bid to rash TERBINAFINE HCL 74234282142 No Longer Active Eva Ferrara MD PhD Active TOPAMAX 25 MG TABS 1 tab po qhs x 1 week, then take 2 tabs po qhs TOPIRAMATE 16279077410 No Longer Active Thom Gilbert MD Active ULTRAM 50 MG TAB take 1 tab po q6hrs prn pain TRAMADOL HCL 35841147817 Active Addis William APRN Active LAMISIL AT 1 % CREA apply bid to rash TERBINAFINE HCL 41478147147 No Longer Active Thom Gilbert MD Active TERBINAFINE HCL 250 MG TABS 1 qDay TERBINAFINE HCL 81292090176 No Longer Active Ian Valdez MD Active XANAX 0.25 MG TABS take 1 tab po bid prn anxiety. ALPRAZOLAM 46369574838 No Longer Active Ian Valdez MD Active FISH OIL 1000 MG CAPS 2 caps PO once daily at bedtime OMEGA-3 FATTY ACIDS 29368269552 No Longer Active Ian Valdez MD Active KLOR-CON M20 20 MEQ CR-TABS take 1 tab po qday with lasix POTASSIUM CHLORIDE GALILEO CR 39422169739 Active Ian Valdez MD Active LASIX 20 MG TAB 1 tablet by mouth daily prn swelling FUROSEMIDE 97440539757 Active Ian Valdez MD Active FLONASE 50 MCG/ACT SUSP 2 puffs in each nostril once daily at bedtime FLUTICASONE PROPIONATE 66383858989 Active Ian Valdez MD Active [facility] MELATONIN 3 MG TABS 2 tabs PO at bedtime MELATONIN 18750049722 Active Ian Valdez MD Active PULMICORT FLEXHALER 180 MCG/ACT AEPB 2 INH BID BUDESONIDE 20057907867 No Longer Active Ian Valdez MD Active METFORMIN HCL 500 MG TB24 1 TAB PO Q HS METFORMIN HCL 21905681620 No Longer Active Ian Valdez MD Active CYCLOBENZAPRINE HCL 10 MG TABS 1 PO q 8 hrs PRN muscle spasm 2012 CYCLOBENZAPRINE HCL 92720163413 No Longer Active Ian Valdez MD Active AZITHROMYCIN 500 MG TABS 1 PO q day x 6 days AZITHROMYCIN 01634672765 No Longer Active Ian Valdez MD Active CIPRO 500 MG TAB 1 tablet by mouth twice daily CIPROFLOXACIN HCL 67849400645 No Longer Active Ian Valdez MD Active PREDNISONE 20 MG TABS 3 qd x 2d, 2 qd x 2d, 1 qd x 2d, 1/2 qd x 2d PREDNISONE 99269299843 No Longer Active Law FIGUEROA Active CELEXA 40 MG TABS 2 PO DAILY CITALOPRAM HYDROBROMIDE 41052585554 Active Ian Valdez MD Active OMEPRAZOLE 20 MG CPDR 1 tablet by mouth daily OMEPRAZOLE 95166085643 No Longer Active [place] FIGUEROA Active KLONOPIN 0.5 MG TABS 1 TABLET PO PRN CLONAZEPAM 52619789275 No Longer Active [place] FIGUEROA Active MOBIC 7.5 MG TABS 1 tablet by mouthonce a day MELOXICAM 40341337384 No Longer Active [place] FIGUEROA Active ZITHROMAX 1 GM PACK DIRECTED AZITHROMYCIN 60225188112 No Longer Active Ian Valdez MD Active ALBUTEROL SULFATE 0.083 % NEBU SOLN one vial per nebulizer every 4-6 hours as needed ALBUTEROL SULFATE 03326725306 Active Ian Valdez MD Active CHANTIX STARTING MONTH REBEKAH 0.5 MG X 11 & 1 MG X 42 TABS 0.5mg daily for 3 days , then 0.5mg BID for 4 days, then 1mg BID VARENICLINE TARTRATE 59852532305 No Longer Active Ian Valdez MD Active ZITHROMAX 1 GM PACK DIRECTED AZITHROMYCIN 07643915854 No Longer Active Ian Valdez MD Active AURALGAN 1.4-5.5 % SOLN BENZOCAINE-ANTIPYRINE 68183726128 No Longer Active Ian Valdez MD Active PREDNISONE 20 MG TAB 3 tabs daily for 3 days, 2 tab daily for 3 days, 1 tab daily for 2 days, then 1/2 tab dialy for 2 days PREDNISONE 98021989989 No Longer Active Ian Valdez MD Active SIMVASTATIN 40 MG TABS 1 TABLET PO Q HS SIMVASTATIN 52434027057 Active Ian Valdez MD Active SIMVASTATIN 80 MG TABS Take one by mouth daily SIMVASTATIN 12715803565 No Longer Active Ian Valdez MD Active PREDNISONE 20 MG TAB 2 tabs daily for 3 days, 1 tab daily for 3 days, 1/2 tab daily for 2 days PREDNISONE 60662889831 No Longer Active Ian Valdez MD Active ZITHROMAX 250 MG TAB 2 po today, then 1 po q days 2-5 AZITHROMYCIN 44394054214 No Longer Active Ian Valdez MD Active TRAZODONE HCL 100 MG TABS 2 TABS PO Q HS TRAZODONE HCL 54522612593 Active Addis William APRN Active ZITHROMAX 250 MG TAB 2 po today, then 1 po q days 2-5 AZITHROMYCIN 98444014374 No Longer Active Ian Valdez MD Active SIMVASTATIN 80 MG TABS Take one by mouth daily SIMVASTATIN 80 MG TABS 929392 SIMVASTATIN Inactive AURALGAN 1.4-5.5 % SOLN AURALGAN 1.4-5.5 % SOLN BENZOCAINE-ANTIPYRINE Inactive ZITHROMAX 1 GM PACK DIRECTED ZITHROMAX 1 GM PACK 539815 AZITHROMYCIN Inactive CHANTIX STARTING MONTH REBEKAH 0.5 MG X 11 & 1 MG X 42 TABS 0.5mg daily for 3 days , then 0.5mg BID for 4 days, then 1mg BID CHANTIX STARTING MONTH REBEKAH 0.5 MG X 11 & 1 MG X 42 TABS VARENICLINE TARTRATE Inactive ZITHROMAX 1 GM PACK DIRECTED ZITHROMAX 1 GM PACK 602008 AZITHROMYCIN Inactive MOBIC 7.5 MG TABS 1 tablet by mouthonce a day MOBIC 7.5 MG TABS 489806 MELOXICAM Inactive KLONOPIN 0.5 MG TABS 1 TABLET PO PRN KLONOPIN 0.5 MG TABS 541870 CLONAZEPAM Inactive CIPRO 500 MG TAB 1 tablet by mouth twice daily CIPRO 500 MG TAB 053218 CIPROFLOXACIN HCL Inactive AZITHROMYCIN 500 MG TABS 1 PO q day x 6 days AZITHROMYCIN 500 MG TABS 6415434 AZITHROMYCIN Inactive CYCLOBENZAPRINE HCL 10 MG TABS 1 PO q 8 hrs PRN muscle spasm 2012 CYCLOBENZAPRINE HCL 10 MG TABS 415253 CYCLOBENZAPRINE HCL Inactive METFORMIN HCL 500 MG [...] bid prn anxiety. XANAX 0.25 MG TABS 712636 ALPRAZOLAM Inactive LAMISIL AT 1 % CREA apply bid to rash LAMISIL AT 1 % CREA 444818 TERBINAFINE HCL Inactive TOPAMAX 25 MG TABS 1 tab po qhs x 1 week, then take 2 tabs po qhs TOPAMAX 25 MG TABS 474632 TOPIRAMATE Inactive TERBINAFINE HCL 1 % CREA Apply bid to rash TERBINAFINE HCL 1 % CREA 234200 TERBINAFINE HCL Inactive BENZACLIN 1-5 % EXT GEL apply to face BID for acne. BENZACLIN 1-5 % EXT GEL 125944 CLINDAMYCIN PHOS-BENZOYL PEROX Inactive ZITHROMAX 250 MG TAB 2 po today, then 1 po q days 2-5 ZITHROMAX 250 MG TAB 3017900 AZITHROMYCIN Inactive ZITHROMAX 250 MG TAB 2 po today, then 1 po q days 2-5 ZITHROMAX 250 MG TAB 8786351 AZITHROMYCIN Inactive PREDNISONE 20 MG TAB 2 tabs daily for 3 days, 1 tab daily for 3 days, 1/2 tab daily for 2 days PREDNISONE 20 MG TAB 749558 PREDNISONE Inactive PREDNISONE 20 MG TAB 3 tabs daily for 3 days, 2 tab daily for 3 days, 1 tab daily for 2 days, then 1/2 tab dialy for 2 days PREDNISONE 20 MG TAB 124943 PREDNISONE Inactive OMEPRAZOLE 20 MG CPDR 1 tablet by mouth daily OMEPRAZOLE 20 MG CPDR 752069 OMEPRAZOLE Inactive PREDNISONE 20 MG TABS 3 qd x 2d, 2 qd x 2d, 1 qd x 2d, 1/2 qd x 2d PREDNISONE 20 MG TABS 238124 PREDNISONE Inactive TERBINAFINE HCL 250 MG TABS 1 qDay TERBINAFINE HCL 250 MG TABS 679425 TERBINAFINE HCL Inactive DOXYCYCLINE HYCLATE 100 MG CAP 1 cap by mouth twice daily DOXYCYCLINE HYCLATE 100 MG CAP 2016913 DOXYCYCLINE HYCLATE Inactive MEDROL (REBEKAH) 4 MG [...] and acellular pertussis vaccine, adsorbed), booster Boostrix [[id number]] tetanus toxoid, reduced diphtheria toxoid, and acellular [...] MICROALBUMIN - Chemistry sodium, serum 141 mmol/L 596-139 5042/10/27 potassium, serum 4.5 mmol/L 3.5-5.2 chloride, serum [...] surface antigen NON-REACTIVE NON-REACTIVE Lab Report: HIV-1/2 Agn/Ritu/47199, Chlamydia/GC APTIMA/39152 - Lab chlamydia DNA probe NOT DETECTED NOT DETECTED Lab Report: HIV-1/2 Agn/Ritu/17867, Chlamydia/GC APTIMA/55462 - Microbiology Neisseria gonorrhoeae DNA probe NOT DETECTED NOT DETECTED Lab Report: [facility] [place] - Chemistry human chorionic gonadotropin, urine, qualitative (urine test) Negative Negative Office Visit: Med Check / Labs - Chemistry cholesterol, target level 200 mg/dL LDL target level 100 mg/dL HDL cholesterol, serum, target level 40 mg/dL triglyceride, target level 150 mg/dL Encounters Code Encounter Date Provider Facility CPT-28771 Level 3 Est. Patient 11:15:53 [employer] Ian Valdez MD [facility] CPT-48570 Level 3 Est. Patient 15:20:49 [employer] Law FIGUEROA [facility] CPT-43178 Level 4 Est. Patient 22:41:22 CDT Ian Valdez MD [facility] CPT-91035 Level 3 Est. Patient 17:03:54 CDT Carlos Mccormack MD [facility] CPT-17049 Level 3 Est. Patient 20:15:16 CDT Ian Valdez MD [facility] CPT-74895 Level 3 Est. Patient 13:49:34 CDT Ian Valdez MD [facility] CPT-98299 Level 3 Est. Patient 15:50:27 [employer] Najma Vaughn APRN [facility] CPT-87636 Level 4 Est. Patient 21:20:00 [employer] Ian Valdez MD [facility] CPT-04860 Level 3 Est. Patient 15:32:41 [employer] Juan Smith MD [facility] CPT-93586 Level 3 Est. Patient 14:45:01 CDT Eva Ferrara MD PhD [facility] CPT-54221 Level 3 Est. Patient 14:54:10 CDT Ian Valdez MD [facility] CPT-00696 Level 4 Est. Patient 20:36:52 CDT Ian Valdez MD [facility]-91773 Level 4 Est. Patient 11:14:30 [employer] Ian Valdez MD [facility]-85863 Level 3 Est. Patient 19:08:34 [employer] Ian Valdez MD [facility]-56072 Level 3 Est. Patient 13:17:39 [employer] Ian Valdez MD [facility]-85862 Level 4 Est. Patient 18:56:10 CDT Ian Valdez MD [facility]-02032 Level 4 Est. Patient 16:55:56 CDT Ian Valdez MD [facility] CPT-54197 Level 3 Est. Patient 11:27:07 CDT Ian Valdez MD [facility] CPT-39072 Level 3 Est. Patient 15:17:44 CDT Law Rosas [facility] CPT-59343 Level 4 Est. Patient 15:13:53 CDT Wellington Muniz [facility] CPT-67563 Level 3 Est. Patient 14:25:12 [employer] Ian Valdez MD [facility]-32931 Level 3 Est. Patient 10:24:46 CDT Ian Valdez MD [facility]-54425 Level 3 Est. Patient 15:34:19 CDT Ian Valdez MD [facility]-04246 Level 3 Est. Patient 14:22:41 CDT Ian Valdez MD [facility]-73533 Level 3 Est. Patient 15:07:22 [employer] Ian Valdez MD [facility] CPT-11009 Level 3 New Patient 09:06:43 [employer] Ian Valdez MD [facility] CPT-08613 Level 3 Est. Patient 15:09:00 [employer] Ian Valdez MD [facility] Procedures Code Procedure Name Date Entry Date Standard Description CPT-J2930 Solu Medrol 125 mg (Methyl Prednisolone Sodium Succinate) 09:17:43 [employer] CPT-95171 Abx/Therapy Injection 09:17:43 [employer] CPT-J2930 Solu Medrol 125 mg (Methyl Prednisolone Sodium Succinate) 13:19:04 [employer] CPT-93300 Abx/Therapy Injection 13:19:04 [employer] CPT-J2930 Solu Medrol 125 mg (Methyl Prednisolone Sodium Succinate) 11:15:53 [employer] CPT-J1050 Depo Provera 150 mg (Medroxyprogesterone) 13:45:44 CDT CPT-12348 Abx/Therapy Injection 13:45:44 CDT CPT-J1050 Depo Provera 150 mg (Medroxyprogesterone) 15:27:21 CDT CPT-20021 Abx/Therapy Injection 15:27:21 CDT CPT-42028 Abd compl w upright 17:11:01 CDT CPT-OV Office Visit 16:24:22 CDT CPT-OV Office Visit 15:15:29 [employer] CPT-OV Office Visit 15:49:26 [employer] CPT-J1885 Toradol 60 mg (Ketorolac) 15:37:32 CDT CPT-35486 Abx/Therapy Injection 15:37:32 CDT CPT-J1885 Toradol 60 mg (Ketorolac) 14:45:01 CDT CPT-OV Office Visit 15:19:52 CDT CPT-OV Office Visit 10:41:01 CDT CPT-58340 Core biop breast wo imaging 16:50:06 CDT CPT-OV Office Visit 16:50:05 CDT CPT-15092 UHCG (floor use only) 13:39:36 CDT CPT-06988 Nexplanon Placement 10:11:48 CDT CPT-J7307 Nexplanon (Implant) 10:11:48 CDT CPT-OV Office Visit 09:54:18 CDT CPT-69773 EKG Trac and Interp 16:50:19 CDT CPT-34298 Venipuncture Draw Fee 15:06:08 CDT CPT-J2930 Solu Medrol 125 mg (Methyl Prednisolone Sodium Succinate) 12:44:46 CDT CPT-J1055 Depo Provera 150 mg (Medroxyprogesterone) 12:44:46 CDT CPT-81563 Abx/Therapy Injection 12:44:46 CDT CPT-J1055 Depo Provera 150 mg (Medroxyprogesterone) 14:28:41 CDT CPT-J2930 Solu Medrol 125 mg (Methyl Prednisolone Sodium Succinate) 14:22:41 CDT CPT-86274 Administration single or combination vaccine inc oral 10 :08:06 CDT CPT-30955 Tdap 10:08:06 CDT CPT-G0402 Wlcm To Medicare Ex 22:17:30 CDT CPT-92414 Venipuncture Draw Fee 10:33:07 [employer] CPT-34013 Venipuncture Draw Fee 10:17:37 [employer] CPT-G0403 EKG Wlc To Medicare 22:17:30 CDT
--- OUTSIDE RECORDS SUMMARY | 2018-07-17 21:06 | XMS REPORT | Clinical Summary ---
Author Author Admin, ARIAN Organization [facility] Address Unknown Phone Unavailable Allergies, Adverse [...] KNEE PAIN, RIGHT, CHRONIC 719.46 Inactive Thom iGlbert MD Pain in joint involving lower leg [...] mastopathy Lateral epicondylitis, right 726.32 Active Ian Valedz MD Lateral epicondylitis Fibromyalgia 729.1 Active Ian [...] po BID PRN Constipation 10/07 MAGNESIUM CITRATE 11676915625 Active Carlos Mccormack MD Active DICLOFENAC SODIUM 50 MG ORAL TBEC TID PRN DICLOFENAC SODIUM 01499865128 Active Ian Valdez MD Active BUSPIRONE HCL 7.5 MG ORAL TABS 1 TAB PO BID PRN ANXIETY BUSPIRONE HCL 76316449367 Active Herminia Bear Active MEDROL (REBEKAH) 4 MG TABS 6 tabs on day 1, 5 tabs on day 2, 4 tabs on day 3, 3 tabs on day 4, 2 tabs on day 5, 1 tab on day 6 METHYLPREDNISOLONE 71518050832 No Longer Active Herminia Chema Active MELOXICAM 15 MG TABS 1 po q day for pain with food MELOXICAM 41438545126 Active Ian Valdez MD Active DOXYCYCLINE HYCLATE 100 MG CAP 1 cap by mouth twice daily DOXYCYCLINE HYCLATE 49559662765 No Longer Active Najma Vaughn [employer] Active MULTIVITAMINS CAPS 1 tablet daily MULTIPLE VITAMIN 12447640644 Active Juan Smith MD Active CYCLOBENZAPRINE HCL 10 MG TABS 1/2 - 1 tab by mouth three times daily if needed for spasms/pain CYCLOBENZAPRINE HCL 64664614325 Active Ian Valdez MD Active GLUCOPHAGE 500 MG TABS 1 tab BID with morning and night meals METFORMIN HCL 93008753862 Active Eva Ferrara MD PhD Active PROGESTERONE MICRONIZED 100 MG CAPS 2 caps daily day 16 thru 25 of cycle 2013 PROGESTERONE MICRONIZED 87872828514 Active Eva Ferrara MD PhD Active TERBINAFINE HCL 1 % CREA Apply bid to rash TERBINAFINE HCL 96451383700 No Longer Active Eva Ferrara MD PhD Active TOPAMAX 25 MG TABS 1 tab po qhs x 1 week, then take 2 tabs po qhs TOPIRAMATE 45703781277 No Longer Active Thom Gilbert MD Active ULTRAM 50 MG TAB take 1 tab po q6hrs prn pain TRAMADOL HCL 95078255477 Active Ian Valdez MD Active LAMISIL AT 1 % CREA apply bid to rash TERBINAFINE HCL 42526891584 No Longer Active Thom Gilbert MD Active TERBINAFINE HCL 250 MG TABS 1 qDay TERBINAFINE HCL 50664051216 No Longer Active Ian Valdez MD Active XANAX 0.25 MG TABS take 1 tab po bid prn anxiety. ALPRAZOLAM 58532436874 No Longer Active Ian Valdez MD Active FISH OIL 1000 MG CAPS 2 caps PO once daily at bedtime OMEGA-3 FATTY ACIDS 38697592526 No Longer Active Ian Valdez MD Active KLOR-CON M20 20 MEQ CR-TABS take 1 tab po qday with lasix POTASSIUM CHLORIDE GALILEO CR 71955038947 Active Ian Valdez MD Active LASIX 20 MG TAB 1 tablet by mouth daily prn swelling FUROSEMIDE 13501713819 Active Ian Valdez MD Active FLONASE 50 MCG/ACT SUSP 2 puffs in each nostril once daily at bedtime FLUTICASONE PROPIONATE 46409684747 Active Ian Valdez MD Active [facility] MELATONIN 3 MG TABS 2 tabs PO at bedtime MELATONIN 87853448404 Active Ian Valdez MD Active PULMICORT FLEXHALER 180 MCG/ACT AEPB 2 INH BID BUDESONIDE 26692236345 No Longer Active Ian Valdez MD Active METFORMIN HCL 500 MG TB24 1 TAB PO Q HS METFORMIN HCL 43115186552 No Longer Active Ian Valdez MD Active CYCLOBENZAPRINE HCL 10 MG TABS 1 PO q 8 hrs PRN muscle spasm 2012 CYCLOBENZAPRINE HCL 05922380887 No Longer Active Ian Valdez MD Active AZITHROMYCIN 500 MG TABS 1 PO q day x 6 days AZITHROMYCIN 61200962242 No Longer Active Ian Valdez MD Active CIPRO 500 MG TAB 1 tablet by mouth twice daily CIPROFLOXACIN HCL 84277224205 No Longer Active Ian Valdez MD Active PREDNISONE 20 MG TABS 3 qd x 2d, 2 qd x 2d, 1 qd x 2d, 1/2 qd x 2d PREDNISONE 36511443144 No Longer Active Law FIGUEROA Active CELEXA 40 MG TABS 2 PO DAILY CITALOPRAM HYDROBROMIDE 01891210196 Active Ian Valdez MD Active OMEPRAZOLE 20 MG CPDR 1 tablet by mouth daily OMEPRAZOLE 22352804553 No Longer Active [place] FIGEUROA Active KLONOPIN 0.5 MG TABS 1 TABLET PO PRN CLONAZEPAM 97481740735 No Longer Active [place] FIGUEROA Active MOBIC 7.5 MG TABS 1 tablet by mouthonce a day MELOXICAM 31597478314 No Longer Active [place] FIGUEROA Active ZITHROMAX 1 GM PACK DIRECTED AZITHROMYCIN 97438435099 No Longer Active Ian Valdez MD Active ALBUTEROL SULFATE 0.083 % NEBU SOLN one vial per nebulizer every 4-6 hours as needed ALBUTEROL SULFATE 36838025775 Active Ian Valdez MD Active CHANTIX STARTING MONTH REBEKAH 0.5 MG X 11 & 1 MG X 42 TABS 0.5mg daily for 3 days , then 0.5mg BID for 4 days, then 1mg BID VARENICLINE TARTRATE 63818704151 No Longer Active Ian Valdez MD Active ZITHROMAX 1 GM PACK DIRECTED AZITHROMYCIN 08972179652 No Longer Active Ian Valdez MD Active AURALGAN 1.4-5.5 % SOLN BENZOCAINE-ANTIPYRINE 74657607217 No Longer Active Ian Valdez MD Active PREDNISONE 20 MG TAB 3 tabs daily for 3 days, 2 tab daily for 3 days, 1 tab daily for 2 days, then 1/2 tab dialy for 2 days PREDNISONE 41342454318 No Longer Active Ian Valdez MD Active SIMVASTATIN 40 MG TABS 1 TABLET PO Q HS SIMVASTATIN 51454429127 Active Ian Valdez MD Active SIMVASTATIN 80 MG TABS Take one by mouth daily SIMVASTATIN 62298106816 No Longer Active Ian Valdez MD Active PREDNISONE 20 MG TAB 2 tabs daily for 3 days, 1 tab daily for 3 days, 1/2 tab daily for 2 days PREDNISONE 18656829583 No Longer Active Ian Valdez MD Active ZITHROMAX 250 MG TAB 2 po today, then 1 po q days 2-5 AZITHROMYCIN 50931527733 No Longer Active Ian Valdez MD Active TRAZODONE HCL 100 MG TABS 2 TABS PO Q HS TRAZODONE HCL 93943558067 Active Ian Valdez MD Active ZITHROMAX 250 MG TAB 2 po today, then 1 po q days 2-5 AZITHROMYCIN 35709442881 No Longer Active Ian Valdez MD Active SIMVASTATIN 80 MG TABS Take one by mouth daily SIMVASTATIN 80 MG TABS 134126 SIMVASTATIN Inactive AURALGAN 1.4-5.5 % SOLN AURALGAN 1.4-5.5 % SOLN BENZOCAINE-ANTIPYRINE Inactive ZITHROMAX 1 GM PACK DIRECTED ZITHROMAX 1 GM PACK 073939 AZITHROMYCIN Inactive CHANTIX STARTING MONTH REBEKAH 0.5 MG X 11 & 1 MG X 42 TABS 0.5mg daily for 3 days , then 0.5mg BID for 4 days, then 1mg BID CHANTIX STARTING MONTH REBEKAH 0.5 MG X 11 & 1 MG X 42 TABS VARENICLINE TARTRATE Inactive ZITHROMAX 1 GM PACK DIRECTED ZITHROMAX 1 GM PACK 165981 AZITHROMYCIN Inactive MOBIC 7.5 MG TABS 1 tablet by mouthonce a day MOBIC 7.5 MG TABS 524230 MELOXICAM Inactive KLONOPIN 0.5 MG TABS 1 TABLET PO PRN KLONOPIN 0.5 MG TABS 199363 CLONAZEPAM Inactive CIPRO 500 MG TAB 1 tablet by mouth twice daily CIPRO 500 MG TAB 839477 CIPROFLOXACIN HCL Inactive AZITHROMYCIN 500 MG TABS 1 PO q day x 6 days AZITHROMYCIN 500 MG TABS 5991291 AZITHROMYCIN Inactive CYCLOBENZAPRINE HCL 10 MG TABS 1 PO q 8 hrs PRN muscle spasm 2012 CYCLOBENZAPRINE HCL 10 MG TABS 857181 CYCLOBENZAPRINE HCL Inactive METFORMIN HCL 500 MG [...] bid prn anxiety. XANAX 0.25 MG TABS 088302 ALPRAZOLAM Inactive LAMISIL AT 1 % CREA apply bid to rash LAMISIL AT 1 % CREA 001000 TERBINAFINE HCL Inactive TOPAMAX 25 MG TABS 1 tab po qhs x 1 week, then take 2 tabs po qhs TOPAMAX 25 MG TABS 222384 TOPIRAMATE Inactive TERBINAFINE HCL 1 % CREA Apply bid to rash TERBINAFINE HCL 1 % CREA 729154 TERBINAFINE HCL Inactive ZITHROMAX 250 MG TAB 2 po today, then 1 po q days 2-5 ZITHROMAX 250 MG TAB 6890896 AZITHROMYCIN Inactive ZITHROMAX 250 MG TAB 2 po today, then 1 po q days 2-5 ZITHROMAX 250 MG TAB 2959800 AZITHROMYCIN Inactive PREDNISONE 20 MG TAB 2 tabs daily for 3 days, 1 tab daily for 3 days, 1/2 tab daily for 2 days PREDNISONE 20 MG TAB 941180 PREDNISONE Inactive PREDNISONE 20 MG TAB 3 tabs daily for 3 days, 2 tab daily for 3 days, 1 tab daily for 2 days, then 1/2 tab dialy for 2 days PREDNISONE 20 MG TAB 956748 PREDNISONE Inactive OMEPRAZOLE 20 MG CPDR 1 tablet by mouth daily OMEPRAZOLE 20 MG CPDR 837783 OMEPRAZOLE Inactive PREDNISONE 20 MG TABS 3 qd x 2d, 2 qd x 2d, 1 qd x 2d, 1/2 qd x 2d PREDNISONE 20 MG TABS 128466 PREDNISONE Inactive TERBINAFINE HCL 250 MG TABS 1 qDay TERBINAFINE HCL 250 MG TABS 199588 TERBINAFINE HCL Inactive DOXYCYCLINE HYCLATE 100 MG CAP 1 cap by mouth twice daily DOXYCYCLINE HYCLATE 100 MG CAP 5005014 DOXYCYCLINE HYCLATE Inactive MEDROL (REBEKAH) 4 MG [...] and acellular pertussis vaccine, adsorbed), booster Boostrix [ELE224] tetanus toxoid, reduced diphtheria toxoid, and acellular [...] 1.44 m[iU]/mL 0.36-3.74 cholesterol, serum 144 mg/dL 362-905 1513/11/19 triglyceride, serum, fasting 172 mg/dL 30-200 HDL cholesterol, serum 30 mg/dL 32-96 LDL cholesterol, serum 80 mg/dL 0-130 sodium, serum 137 mmol/L 001-708 8712/11/19 potassium, serum 4.1 mmol/L 3.5-5.2 chloride, serum 100 mmol/L 98-107 carbon dioxide, venous blood 26.9 mmol/L 21.0-32.0 blood glucose 84 mg/dL 65-110 urea nitrogen, blood 11 mg/dL 7-18 creatinine, serum 0.90 mg/dL 0.60-1.30 alanine aminotransferase (SGPT), serum 23 U/L 12-78 aspartate aminotransferase (SGOT), serum 17 U/L 15-37 calcium, serum 9.5 mg/dL 8.5-10.1 bilirubin, serum, total 0.70 mg/dL 0.00-1.00 Lab Report: HIV-1/2 Agn/Ritu/12353, Chlamydia/GC APTIMA/10999 - Lab chlamydia DNA probe NOT DETECTED NOT DETECTED Lab Report: HIV-1/2 Agn/Ritu/20051, Chlamydia/GC APTIMA/62053 - Microbiology Neisseria gonorrhoeae DNA probe NOT DETECTED NOT DETECTED Lab Report: TONY INFLUENZA A/B - Toxicology rapid flu test Negative Negative;Positive Office Visit: wellness exam for insurance/ diabetes check - Chemistry cholesterol, target level 200 mg/dL LDL target level 100 mg/dL HDL cholesterol, serum, target level 40 mg/dL triglyceride, target level 150 mg/dL Encounters Code Encounter Date Provider Facility CPT-88646 Level 3 Est. Patient 17:03:54 CDT Carlos Mccormack MD [facility] CPT-22313 Level 3 Est. Patient 20:15:16 CDT Ian Valdez MD [facility] CPT-82289 Level 3 Est. Patient 13:49:34 CDT Ian Valdez MD [facility] CPT-08830 Level 3 Est. Patient 15:50:27 [employer] Najma Vaughn APRN [facility] CPT-77812 Level 4 Est. Patient 21:20:00 [employer] Ian Valdez MD [facility] CPT-77064 Level 3 Est. Patient 15:32:41 [employer] Juan Smith MD [facility] CPT-55745 Level 3 Est. Patient 14:45:01 CDT Eva Ferrara MD PhD [facility] CPT-76448 Level 3 Est. Patient 14:54:10 CDT Ian Valdez MD [facility] CPT-22420 Level 4 Est. Patient 20:36:52 CDT Ian Valdez MD [facility] CPT-98617 Level 4 Est. Patient 11:14:30 [employer] Ian Valdez MD [facility] CPT-88662 Level 3 Est. Patient 19:08:34 [employer] Ian Valdez MD [facility] CPT-87172 Level 3 Est. Patient 13:17:39 [employer] Ian Valdez MD [facility] CPT-96583 Level 4 Est. Patient 18:56:10 CDT Ian Valdez MD [facility] CPT-63637 Level 4 Est. Patient 16:55:56 CDT Ian Valdez MD [facility] CPT-46925 Level 3 Est. Patient 11:27:07 CDT Ian Valdez MD [facility] CPT-66505 Level 3 Est. Patient 15:17:44 CDT Law Rosas [facility] CPT-21776 Level 4 Est. Patient 15:13:53 CDT Wellington Muniz [facility] CPT-35423 Level 3 Est. Patient 14:25:12 [employer] Ian Valdez MD [facility] CPT-88841 Level 3 Est. Patient 10:24:46 CDT Ian Valdez MD [facility] CPT-58492 Level 3 Est. Patient 15:34:19 CDT Ian Valdez MD [facility] CPT-60578 Level 3 Est. Patient 14:22:41 CDT Ian Valdez MD [facility] CPT-15966 Level 3 Est. Patient 15:07:22 [employer] Ian Valdez MD [facility] CPT-32684 Level 3 New Patient 09:06:43 [employer] Ian Valdez MD [facility] CPT-58970 Level 3 Est. Patient 15:09:00 [employer] Ian Valdez MD [facility] Procedures Code Procedure Name Date Entry Date Standard Description CPT-10335 Abd compl w upright 17:11:01 CDT CPT-OV Office Visit 16:24:22 CDT CPT-OV Office Visit 15:15:29 [employer] CPT-OV Office Visit 15:49:26 [employer] CPT-J1885 Toradol 60 mg (Ketorolac) 15:37:32 CDT CPT-65139 Abx/Therapy Injection 15:37:32 CDT CPT-J1885 Toradol 60 mg (Ketorolac) 14:45:01 CDT CPT-OV Office Visit 15:19:52 CDT CPT-OV Office Visit 10:41:01 CDT CPT-38535 Core biop breast wo imaging 16:50:06 CDT CPT-OV Office Visit 16:50:05 CDT CPT-02189 UHCG (floor use only) 13:39:36 CDT CPT-07627 Nexplanon Placement 10:11:48 CDT CPT-J7307 Nexplanon (Implant) 10:11:48 CDT CPT-OV Office Visit 09:54:18 CDT CPT-94863 EKG Trac and Interp 16:50:19 CDT CPT-77318 Venipuncture Draw Fee 15:06:08 CDT CPT-J2930 Solu Medrol 125 mg (Methyl Prednisolone Sodium Succinate) 12:44:46 CDT CPT-J1055 Depo Provera 150 mg (Medroxyprogesterone) 12:44:46 CDT CPT-86492 Abx/Therapy Injection 12:44:46 CDT CPT-J1055 Depo Provera 150 mg (Medroxyprogesterone) 14:28:41 CDT CPT-J2930 Solu Medrol 125 mg (Methyl Prednisolone Sodium Succinate) 14:22:41 CDT CPT-00592 Administration single or combination vaccine inc oral 10 :08:06 CDT CPT-95526 Tdap 10:08:06 CDT CPT-G0402 Wlcm To Medicare Ex 22:17:30 CDT CPT-11228 Venipuncture Draw Fee 10:33:07 [employer] CPT-38333 Venipuncture Draw Fee 10:17:37 [employer] CPT-G0403 EKG Wl To Medicare 22:17:30 CDT
--- OUTSIDE RECORDS SUMMARY | 2018-07-17 21:07 | XMS REPORT | Clinical Summary ---
[...] degree Fibrocystic breast disease 610.1 Active Thom Gilbetr MD Diffuse cystic mastopathy Lateral epicondylitis, right 726.32 Active Ian Valdez MD Lateral epicondylitis Fibromyalgia 729.1 Active Ian Valdez MD Myalgia and myositis, unspecified SINUSITIS ICD-473.9 Inactive Ian Valdez MD SCABIES ICD-133.0 Inactive Ian Valdez MD 2012 MEMORY LOSS ICD-780.93 Inactive Ina Valdez MD FAMILY HISTORY OF ALCOHOLISM ICD-V61.41 [...] MG ORAL TBEC TID PRN DICLOFENAC SODIUM 75452078274 Active Nataliyadaria Fortuneida Active BUSPIRONE HCL 7.5 MG ORAL TABS 1 TAB PO BID PRN ANXIETY BUSPIRONE HCL 97978822708 Active Herminia Bear Active MEDROL (REBEKAH) 4 MG TABS 6 tabs on day 1, 5 tabs on day 2, 4 tabs on day 3, 3 tabs on day 4, 2 tabs on day 5, 1 tab on day 6 METHYLPREDNISOLONE 05919547833 No Longer Active Herminia Bear Active MELOXICAM 15 MG TABS 1 po q day for pain with food MELOXICAM 80165828648 Active Ian Valdez MD Active DOXYCYCLINE HYCLATE 100 MG CAP 1 cap by mouth twice daily DOXYCYCLINE HYCLATE 38905646725 No Longer Active Najma Vaughn APRN Active MULTIVITAMINS CAPS 1 tablet daily MULTIPLE VITAMIN 11208913598 Active Juan Smith MD Active CYCLOBENZAPRINE HCL 10 MG TABS 1/2 - 1 tab by mouth three times daily if needed for spasms/pain CYCLOBENZAPRINE HCL 83311685018 Active Ian Valdez MD Active GLUCOPHAGE 500 MG TABS 1 tab BID with morning and night meals METFORMIN HCL 65687804091 Active Eva Ferrara MD PhD Active PROGESTERONE MICRONIZED 100 MG CAPS 2 caps daily day 16 thru 25 of cycle 2013 PROGESTERONE MICRONIZED 54043789382 Active Eva Ferrara MD PhD Active TERBINAFINE HCL 1 % CREA Apply bid to rash TERBINAFINE HCL 55087071519 No Longer Active Eva Ferrara MD PhD Active TOPAMAX 25 MG TABS 1 tab po qhs x 1 week, then take 2 tabs po qhs TOPIRAMATE 42236947463 No Longer Active Thom Gilbert MD Active ULTRAM 50 MG TAB take 1 tab po q6hrs prn pain TRAMADOL HCL 45150644613 Active Ian Valdez MD Active LAMISIL AT 1 % CREA apply bid to rash TERBINAFINE HCL 19416519645 No Longer Active Thom Gilbert MD Active TERBINAFINE HCL 250 MG TABS 1 qDay TERBINAFINE HCL 06778682535 No Longer Active Ian Valdez MD Active XANAX 0.25 MG TABS take 1 tab po bid prn anxiety. ALPRAZOLAM 47239628211 No Longer Active Ian Valdez MD Active FISH OIL 1000 MG CAPS 2 caps PO once daily at bedtime OMEGA-3 FATTY ACIDS 00069923461 No Longer Active Ian Valdez MD Active KLOR-CON M20 20 MEQ CR-TABS take 1 tab po qday with lasix POTASSIUM CHLORIDE GALILEO CR 76964210449 Active Ian Valdez MD Active LASIX 20 MG TAB 1 tablet by mouth daily prn swelling FUROSEMIDE 48112471321 Active Ian Valdez MD Active FLONASE 50 MCG/ACT SUSP 2 puffs in each nostril once daily at bedtime FLUTICASONE PROPIONATE 58557816668 Active Ian Valdez MD Active [facility] MELATONIN 3 MG TABS 2 tabs PO at bedtime MELATONIN 41947856278 Active Ian Valdez MD Active PULMICORT FLEXHALER 180 MCG/ACT AEPB 2 INH BID BUDESONIDE 53700477999 No Longer Active Ian Valdez MD Active METFORMIN HCL 500 MG TB24 1 TAB PO Q HS METFORMIN HCL 60831082138 No Longer Active Ian Valdez MD Active CYCLOBENZAPRINE HCL 10 MG TABS 1 PO q 8 hrs PRN muscle spasm 2012 CYCLOBENZAPRINE HCL 38688999803 No Longer Active Ian Valdez MD Active AZITHROMYCIN 500 MG TABS 1 PO q day x 6 days AZITHROMYCIN 41728600085 No Longer Active Ian Valdez MD Active CIPRO 500 MG TAB 1 tablet by mouth twice daily CIPROFLOXACIN HCL 25645985675 No Longer Active Ian Valdez MD Active PREDNISONE 20 MG TABS 3 qd x 2d, 2 qd x 2d, 1 qd x 2d, 1/2 qd x 2d PREDNISONE 11125752059 No Longer Active Law FIGUEROA Active CELEXA 40 MG TABS 2 PO DAILY CITALOPRAM HYDROBROMIDE 19415984328 Active Ian Valdez MD Active OMEPRAZOLE 20 MG CPDR 1 tablet by mouth daily OMEPRAZOLE 31326036558 No Longer Active [place] FIGUEROA Active KLONOPIN 0.5 MG TABS 1 TABLET PO PRN CLONAZEPAM 59328329859 No Longer Active [place] FIGUEROA Active MOBIC 7.5 MG TABS 1 tablet by mouthonce a day MELOXICAM 33601793690 No Longer Active [place] FIGUEROA Active ZITHROMAX 1 GM PACK DIRECTED AZITHROMYCIN 88692525036 No Longer Active Ian Valdez MD Active ALBUTEROL SULFATE 0.083 % NEBU SOLN one vial per nebulizer every 4-6 hours as needed ALBUTEROL SULFATE 59691182109 Active Ian Valdez MD Active CHANTIX STARTING MONTH REBEKAH 0.5 MG X 11 & 1 MG X 42 TABS 0.5mg daily for 3 days , then 0.5mg BID for 4 days, then 1mg BID VARENICLINE TARTRATE 37904434622 No Longer Active Ian Valdez MD Active ZITHROMAX 1 GM PACK DIRECTED AZITHROMYCIN 16147349630 No Longer Active Ian Valdez MD Active AURALGAN 1.4-5.5 % SOLN BENZOCAINE-ANTIPYRINE 77965914112 No Longer Active Ian Valdez MD Active PREDNISONE 20 MG TAB 3 tabs daily for 3 days, 2 tab daily for 3 days, 1 tab daily for 2 days, then 1/2 tab dialy for 2 days PREDNISONE 68963508239 No Longer Active Ian Valdez MD Active SIMVASTATIN 40 MG TABS 1 TABLET PO Q HS SIMVASTATIN 49286244057 Active Ian Valdez MD Active SIMVASTATIN 80 MG TABS Take one by mouth daily SIMVASTATIN 29293310744 No Longer Active Ian Valdez MD Active PREDNISONE 20 MG TAB 2 tabs daily for 3 days, 1 tab daily for 3 days, 1/2 tab daily for 2 days PREDNISONE 00883948355 No Longer Active Ian Valdez MD Active ZITHROMAX 250 MG TAB 2 po today, then 1 po q days 2-5 AZITHROMYCIN 26496389432 No Longer Active Ian Valdez MD Active TRAZODONE HCL 100 MG TABS 2 TABS PO Q HS TRAZODONE HCL 86594169718 Active Ian Valdez MD Active ZITHROMAX 250 MG TAB 2 po today, then 1 po q days 2-5 AZITHROMYCIN 15006880150 No Longer Active Ian Valdez MD Active SIMVASTATIN 80 MG TABS Take one by mouth daily SIMVASTATIN 80 MG TABS 535184 SIMVASTATIN Inactive AURALGAN 1.4-5.5 % SOLN AURALGAN 1.4-5.5 % SOLN BENZOCAINE-ANTIPYRINE Inactive ZITHROMAX 1 GM PACK DIRECTED ZITHROMAX 1 GM PACK 642179 AZITHROMYCIN Inactive CHANTIX STARTING MONTH REBEKAH 0.5 MG X 11 & 1 MG X 42 TABS 0.5mg daily for 3 days , then 0.5mg BID for 4 days, then 1mg BID CHANTIX STARTING MONTH REBEKAH 0.5 MG X 11 & 1 MG X 42 TABS VARENICLINE TARTRATE Inactive ZITHROMAX 1 GM PACK DIRECTED ZITHROMAX 1 GM PACK 005535 AZITHROMYCIN Inactive MOBIC 7.5 MG TABS 1 tablet by mouthonce a day MOBIC 7.5 MG TABS 564968 MELOXICAM Inactive KLONOPIN 0.5 MG TABS 1 TABLET PO PRN KLONOPIN 0.5 MG TABS 721203 CLONAZEPAM Inactive CIPRO 500 MG TAB 1 tablet by mouth twice daily CIPRO 500 MG TAB 174841 CIPROFLOXACIN HCL Inactive AZITHROMYCIN 500 MG TABS 1 PO q day x 6 days AZITHROMYCIN 500 MG TABS 0989563 AZITHROMYCIN Inactive CYCLOBENZAPRINE HCL 10 MG TABS 1 PO q 8 hrs PRN muscle spasm 2012 CYCLOBENZAPRINE HCL 10 MG TABS 547761 CYCLOBENZAPRINE HCL Inactive METFORMIN HCL 500 MG [...] bid prn anxiety. XANAX 0.25 MG TABS 181174 ALPRAZOLAM Inactive LAMISIL AT 1 % CREA apply bid to rash LAMISIL AT 1 % CREA 068377 TERBINAFINE HCL Inactive TOPAMAX 25 MG TABS 1 tab po qhs x 1 week, then take 2 tabs po qhs TOPAMAX 25 MG TABS 855903 TOPIRAMATE Inactive TERBINAFINE HCL 1 % CREA Apply bid to rash TERBINAFINE HCL 1 % CREA 941792 TERBINAFINE HCL Inactive ZITHROMAX 250 MG TAB 2 po today, then 1 po q days 2-5 ZITHROMAX 250 MG TAB 1109015 AZITHROMYCIN Inactive ZITHROMAX 250 MG TAB 2 po today, then 1 po q days 2-5 ZITHROMAX 250 MG TAB 2855984 AZITHROMYCIN Inactive PREDNISONE 20 MG TAB 2 tabs daily for 3 days, 1 tab daily for 3 days, 1/2 tab daily for 2 days PREDNISONE 20 MG TAB 472100 PREDNISONE Inactive PREDNISONE 20 MG TAB 3 tabs daily for 3 days, 2 tab daily for 3 days, 1 tab daily for 2 days, then 1/2 tab dialy for 2 days PREDNISONE 20 MG TAB 568860 PREDNISONE Inactive OMEPRAZOLE 20 MG CPDR 1 tablet by mouth daily OMEPRAZOLE 20 MG CPDR 935072 OMEPRAZOLE Inactive PREDNISONE 20 MG TABS 3 qd x 2d, 2 qd x 2d, 1 qd x 2d, 1/2 qd x 2d PREDNISONE 20 MG TABS 834470 PREDNISONE Inactive TERBINAFINE HCL 250 MG TABS 1 qDay TERBINAFINE HCL 250 MG TABS 400158 TERBINAFINE HCL Inactive DOXYCYCLINE HYCLATE 100 MG [...] and acellular pertussis vaccine, adsorbed), booster Boostrix [[id number]] tetanus toxoid, reduced diphtheria toxoid, and acellular [...] 1.44 m[iU]/mL 0.36-3.74 cholesterol, serum 144 mg/dL 694-021 8571/11/19 triglyceride, serum, fasting 172 mg/dL 30-200 HDL cholesterol, serum 30 mg/dL 32-96 LDL cholesterol, serum 80 mg/dL 0-130 sodium, serum 137 mmol/L 821-334 0044/11/19 potassium, serum 4.1 mmol/L 3.5-5.2 chloride, serum [...] mg/dL Encounters Code Encounter Date Provider Facility CPT-41092 Level 3 Est. Patient 20:15:16 CDT Ian Valdez MD [facility] CPT-26994 Level 3 Est. Patient 13:49:34 CDT Ian Valdez MD [facility]-63450 Level 3 Est. Patient 15:50:27 DREDGE LEVER OPERATOR Najma Vaughn APRN [facility]-06181 Level 4 Est. Patient 21:20:00 DREDGE LEVER OPERATOR Ian Valdez MD [facility]-17910 Level 3 Est. Patient 15:32:41 DREDGE LEVER OPERATOR Juan Smith MD [facility]-37746 Level 3 Est. Patient 14:45:01 CDT Eva Ferrara MD PhD [facility]-84522 Level 3 Est. Patient 14:54:10 CDT Ian Valdez MD [facility]-94608 Level 4 Est. Patient 20:36:52 CDT Ian Valdez MD [facility]-32208 Level 4 Est. Patient 11:14:30 DREDGE LEVER OPERATOR Ian Valdez MD [facility]-29978 Level 3 Est. Patient 19:08:34 DREDGE LEVER OPERATOR Ian Valdez MD [facility]-23038 Level 3 Est. Patient 13:17:39 DREDGE LEVER OPERATOR aIn Valdez MD [facility]-73362 Level 4 Est. Patient 18:56:10 CDT Ian Valdez MD [facility]-37761 Level 4 Est. Patient 16:55:56 CDT Ian Valdez MD [facility]-41725 Level 3 Est. Patient 11:27:07 CDT Ian Valdez MD [facility]-66827 Level 3 Est. Patient 15:17:44 CDT Law FIGUEROA [facility]-12021 Level 4 Est. Patient 15:13:53 CDT [place] FIGUEROA [facility] CPT-39117 Level 3 Est. Patient 14:25:12 DREDGE LEVER OPERATOR Ian Valdez MD [facility] CPT-98313 Level 3 Est. Patient 10:24:46 CDT Ian Valdez MD [facility] CPT-06984 Level 3 Est. Patient 15:34:19 CDT Ian Valdez MD [facility] CPT-36033 Level 3 Est. Patient 14:22:41 CDT Ian Valdez MD [facility] CPT-00570 Level 3 Est. Patient 15:07:22 DREDGE LEVER OPERATOR Ian Valdez MD [facility] CPT-23068 Level 3 New Patient 09:06:43 DREDGE LEVER OPERATOR Ian Valdez MD [facility] CPT-27383 Level 3 Est. Patient 15:09:00 DREDGE LEVER OPERATOR Ian Valdez MD [facility] Procedures Code Procedure Name Date Entry Date Standard Description CPT-OV Office Visit 16:24:22 CDT CPT-OV Office Visit 15:15:29 DREDGE LEVER OPERATOR CPT-OV Office Visit 15:49:26 DREDGE LEVER OPERATOR CPT-J1885 Toradol 60 mg (Ketorolac) 15:37:32 CDT CPT-68835 Abx/Therapy Injection 15:37:32 CDT CPT-J1885 Toradol 60 mg (Ketorolac) 14:45:01 CDT CPT-OV Office Visit 15:19:52 CDT CPT-OV Office Visit 10:41:01 CDT CPT-98070 Core biop breast wo imaging 16:50:06 CDT CPT-OV Office Visit 16:50:05 CDT CPT-05633 UHCG (floor use only) 13:39:36 CDT CPT-86917 Nexplanon Placement 10:11:48 CDT CPT-J7307 Nexplanon (Implant) 10:11:48 CDT CPT-OV Office Visit 09:54:18 CDT CPT-94908 EKG Trac and Interp 16:50:19 CDT CPT-22390 Venipuncture Draw Fee 15:06:08 CDT CPT-J2930 Solu Medrol 125 mg (Methyl Prednisolone Sodium Succinate) 12:44:46 CDT CPT-J1055 Depo Provera 150 mg (Medroxyprogesterone) 12:44:46 CDT CPT-09627 Abx/Therapy Injection 12:44:46 CDT CPT-J1055 Depo Provera 150 mg (Medroxyprogesterone) 14:28:41 CDT CPT-J2930 Solu Medrol 125 mg (Methyl Prednisolone Sodium Succinate) 14:22:41 CDT CPT-13708 Administration single or combination vaccine inc oral 10 :08:06 CDT CPT-60662 Tdap 10:08:06 CDT CPT-G0402 Wlcm To Medicare Ex 22:17:30 CDT CPT-41198 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
--- OUTSIDE RECORDS SUMMARY | 2018-07-17 21:09 | XMS REPORT | Clinical Summary ---
Author Author Admin, ARIAN Organization [facility] Address Unknown Phone Unavailable Allergies, Adverse Reactions, Alerts Allergy Name Reaction Description Start Date Severity Status Provider LATEX GLOVES Critical Active Ian Valdze MD HALDOL Critical Active Ian Valdez MD [...] Ian Valdez MD BRONCHITIS, ACUTE ICD-466.0 Inactive aIn Valdez MD SHOULDER PAIN, RIGHT ICD-719.41 Inactive [...] MG ORAL TBEC TID PRN DICLOFENAC SODIUM 39837689578 Active Nataliya Lozada Active BUSPIRONE HCL 7.5 MG ORAL TABS 1 TAB PO BID PRN ANXIETY BUSPIRONE HCL 15407638989 Active Herminia Bear Active MEDROL (REBEKAH) 4 MG TABS 6 tabs on day 1, 5 tabs on day 2, 4 tabs on day 3, 3 tabs on day 4, 2 tabs on day 5, 1 tab on day 6 METHYLPREDNISOLONE 48074131426 No Longer Active Herminia Bear Active MELOXICAM 15 MG TABS 1 po q day for pain with food MELOXICAM 12207800433 Active Ian Valdez MD Active DOXYCYCLINE HYCLATE 100 MG CAP 1 cap by mouth twice daily DOXYCYCLINE HYCLATE 61988132597 No Longer Active Najma Vaughn APRN Active MULTIVITAMINS CAPS 1 tablet daily MULTIPLE VITAMIN 63737095406 Active Juan Smith MD Active CYCLOBENZAPRINE HCL 10 MG TABS 1/2 - 1 tab by mouth three times daily if needed for spasms/pain CYCLOBENZAPRINE HCL 31987572093 Active Ian Valdez MD Active GLUCOPHAGE 500 MG TABS 1 tab BID with morning and night meals METFORMIN HCL 92168929121 Active Eva Ferrara MD PhD Active PROGESTERONE MICRONIZED 100 MG CAPS 2 caps daily day 16 thru 25 of cycle 2013 PROGESTERONE MICRONIZED 90298261518 Active Eva Ferrara MD PhD Active TERBINAFINE HCL 1 % CREA Apply bid to rash TERBINAFINE HCL 54480260028 No Longer Active Eva Ferrara MD PhD Active TOPAMAX 25 MG TABS 1 tab po qhs x 1 week, then take 2 tabs po qhs TOPIRAMATE 52329175509 No Longer Active Thom Gilbert MD Active ULTRAM 50 MG TAB take 1 tab po q6hrs prn pain TRAMADOL HCL 94268844679 Active Grayson Josue DO Active LAMISIL AT 1 % CREA apply bid to rash TERBINAFINE HCL 83346103822 No Longer Active Thom Gilbert MD Active TERBINAFINE HCL 250 MG TABS 1 qDay TERBINAFINE HCL 39856536985 No Longer Active Ian Valdez MD Active XANAX 0.25 MG TABS take 1 tab po bid prn anxiety. ALPRAZOLAM 73632477266 No Longer Active Ian Valdez MD Active FISH OIL 1000 MG CAPS 2 caps PO once daily at bedtime OMEGA-3 FATTY ACIDS 62441678029 No Longer Active Ian Valdez MD Active KLOR-CON M20 20 MEQ CR-TABS take 1 tab po qday with lasix POTASSIUM CHLORIDE GALILEO CR 19512065357 Active Ian Valdez MD Active LASIX 20 MG TAB 1 tablet by mouth daily prn swelling FUROSEMIDE 35081959984 Active Ian Valdez MD Active FLONASE 50 MCG/ACT SUSP 2 puffs in each nostril once daily at bedtime FLUTICASONE PROPIONATE 56385477310 Active Ian Valdez MD Active CVS MELATONIN 3 MG TABS 2 tabs PO at bedtime MELATONIN 11119985674 Active Ian Valdez MD Active PULMICORT FLEXHALER 180 MCG/ACT AEPB 2 INH BID BUDESONIDE 70196079724 No Longer Active Ian Valdez MD Active METFORMIN HCL 500 MG TB24 1 TAB PO Q HS METFORMIN HCL 04332804083 No Longer Active Ian Valdez MD Active CYCLOBENZAPRINE HCL 10 MG TABS 1 PO q 8 hrs PRN muscle spasm 2012 CYCLOBENZAPRINE HCL 01657581616 No Longer Active Ian Valdez MD Active AZITHROMYCIN 500 MG TABS 1 PO q day x 6 days AZITHROMYCIN 00822586333 No Longer Active Ian Valdez MD Active CIPRO 500 MG TAB 1 tablet by mouth twice daily CIPROFLOXACIN HCL 58234173811 No Longer Active Ian Valdez MD Active PREDNISONE 20 MG TABS 3 qd x 2d, 2 qd x 2d, 1 qd x 2d, 1/2 qd x 2d PREDNISONE 34030265089 No Longer Active Law FIGUEROA Active CELEXA 40 MG TABS 2 PO DAILY CITALOPRAM HYDROBROMIDE 82313453827 Active Ian Valdez MD Active OMEPRAZOLE 20 MG CPDR 1 tablet by mouth daily OMEPRAZOLE 85108970861 No Longer Active [place] FIGUEROA Active KLONOPIN 0.5 MG TABS 1 TABLET PO PRN CLONAZEPAM 74289673025 No Longer Active [place] FIGUEROA Active MOBIC 7.5 MG TABS 1 tablet by mouthonce a day MELOXICAM 05477518296 No Longer Active [place] FIGUEROA Active ZITHROMAX 1 GM PACK DIRECTED AZITHROMYCIN 38397879014 No Longer Active Ian Valdez MD Active ALBUTEROL SULFATE 0.083 % NEBU SOLN one vial per nebulizer every 4-6 hours as needed ALBUTEROL SULFATE 70132341958 Active Ian Valdez MD Active CHANTIX STARTING MONTH REBEKAH 0.5 MG X 11 & 1 MG X 42 TABS 0.5mg daily for 3 days , then 0.5mg BID for 4 days, then 1mg BID VARENICLINE TARTRATE 52608507981 No Longer Active Ian Valdez MD Active ZITHROMAX 1 GM PACK DIRECTED AZITHROMYCIN 79430693772 No Longer Active Ian Valdez MD Active AURALGAN 1.4-5.5 % SOLN BENZOCAINE-ANTIPYRINE 40214188693 No Longer Active Ian Valdez MD Active PREDNISONE 20 MG TAB 3 tabs daily for 3 days, 2 tab daily for 3 days, 1 tab daily for 2 days, then 1/2 tab dialy for 2 days PREDNISONE 99624098223 No Longer Active Ian Valdez MD Active SIMVASTATIN 40 MG TABS 1 TABLET PO Q HS SIMVASTATIN 22732865425 Active Ian Valdez MD Active SIMVASTATIN 80 MG TABS Take one by mouth daily SIMVASTATIN 03621649694 No Longer Active Ian Valdez MD Active PREDNISONE 20 MG TAB 2 tabs daily for 3 days, 1 tab daily for 3 days, 1/2 tab daily for 2 days PREDNISONE 03841078185 No Longer Active Ian Valdez MD Active ZITHROMAX 250 MG TAB 2 po today, then 1 po q days 2-5 AZITHROMYCIN 75579845019 No Longer Active Ian Valdez MD Active TRAZODONE HCL 100 MG TABS 2 TABS PO Q HS TRAZODONE HCL 95718952193 Active Ian Valdez MD Active ZITHROMAX 250 MG TAB 2 po today, then 1 po q days 2-5 AZITHROMYCIN 67590019890 No Longer Active Ian Valdez MD Active SIMVASTATIN 80 MG TABS Take one by mouth daily SIMVASTATIN 80 MG TABS 100604 SIMVASTATIN Inactive AURALGAN 1.4-5.5 % SOLN AURALGAN 1.4-5.5 % SOLN BENZOCAINE-ANTIPYRINE Inactive ZITHROMAX 1 GM PACK DIRECTED ZITHROMAX 1 GM PACK 321008 AZITHROMYCIN Inactive CHANTIX STARTING MONTH REBEKAH 0.5 MG X 11 & 1 MG X 42 TABS 0.5mg daily for 3 days , then 0.5mg BID for 4 days, then 1mg BID CHANTIX STARTING MONTH REBEKAH 0.5 MG X 11 & 1 MG X 42 TABS VARENICLINE TARTRATE Inactive ZITHROMAX 1 GM PACK DIRECTED ZITHROMAX 1 GM PACK 835348 AZITHROMYCIN Inactive MOBIC 7.5 MG TABS 1 tablet by mouthonce a day MOBIC 7.5 MG TABS 403738 MELOXICAM Inactive KLONOPIN 0.5 MG TABS 1 TABLET PO PRN KLONOPIN 0.5 MG TABS 881196 CLONAZEPAM Inactive CIPRO 500 MG TAB 1 tablet by mouth twice daily CIPRO 500 MG TAB 173783 CIPROFLOXACIN HCL Inactive AZITHROMYCIN 500 MG TABS 1 PO q day x 6 days AZITHROMYCIN 500 MG TABS 7833971 AZITHROMYCIN Inactive CYCLOBENZAPRINE HCL 10 MG TABS 1 PO q 8 hrs PRN muscle spasm 2012 CYCLOBENZAPRINE HCL 10 MG TABS 276453 CYCLOBENZAPRINE HCL Inactive METFORMIN HCL 500 MG [...] bid prn anxiety. XANAX 0.25 MG TABS 208227 ALPRAZOLAM Inactive LAMISIL AT 1 % CREA apply bid to rash LAMISIL AT 1 % CREA 539771 TERBINAFINE HCL Inactive TOPAMAX 25 MG TABS 1 tab po qhs x 1 week, then take 2 tabs po qhs TOPAMAX 25 MG TABS 939368 TOPIRAMATE Inactive TERBINAFINE HCL 1 % CREA Apply bid to rash TERBINAFINE HCL 1 % CREA 162334 TERBINAFINE HCL Inactive ZITHROMAX 250 MG TAB 2 po today, then 1 po q days 2-5 ZITHROMAX 250 MG TAB 8307093 AZITHROMYCIN Inactive ZITHROMAX 250 MG TAB 2 po today, then 1 po q days 2-5 ZITHROMAX 250 MG TAB 8982046 AZITHROMYCIN Inactive PREDNISONE 20 MG TAB 2 tabs daily for 3 days, 1 tab daily for 3 days, 1/2 tab daily for 2 days PREDNISONE 20 MG TAB 269542 PREDNISONE Inactive PREDNISONE 20 MG TAB 3 tabs daily for 3 days, 2 tab daily for 3 days, 1 tab daily for 2 days, then 1/2 tab dialy for 2 days PREDNISONE 20 MG TAB 640376 PREDNISONE Inactive OMEPRAZOLE 20 MG CPDR 1 tablet by mouth daily OMEPRAZOLE 20 MG CPDR 255640 OMEPRAZOLE Inactive PREDNISONE 20 MG TABS 3 qd x 2d, 2 qd x 2d, 1 qd x 2d, 1/2 qd x 2d PREDNISONE 20 MG TABS 694618 PREDNISONE Inactive TERBINAFINE HCL 250 MG TABS 1 qDay TERBINAFINE HCL 250 MG TABS 701456 TERBINAFINE HCL Inactive DOXYCYCLINE HYCLATE 100 MG CAP 1 cap by mouth twice daily DOXYCYCLINE HYCLATE 100 MG CAP 045241 DOXYCYCLINE HYCLATE Inactive MEDROL (REBEKAH) 4 MG [...] and acellular pertussis vaccine, adsorbed), booster Boostrix [[id number]] tetanus toxoid, reduced diphtheria toxoid, and acellular [...] 1.44 m[iU]/mL 0.36-3.74 cholesterol, serum 144 mg/dL [phone]/11/19 triglyceride, serum, fasting 172 mg/dL 30-200 HDL cholesterol, serum 30 mg/dL 32-96 LDL cholesterol, serum 80 mg/dL 0-130 sodium, serum 137 mmol/L 547-627 4071/11/19 potassium, serum 4.1 mmol/L 3.5-5.2 chloride, serum [...] mg/dL Encounters Code Encounter Date Provider Facility CPT-06424 Level 3 Est. Patient 20:15:16 CDT Ian Valdez MD [facility] CPT-67518 Level 3 Est. Patient 13:49:34 CDT Ian Valdez MD [facility] CPT-85735 Level 3 Est. Patient 15:50:27 [employer] Najma Vaughn APRN [facility] CPT-78880 Level 4 Est. Patient 21:20:00 [employer] Ian Valdez MD [facility] CPT-32535 Level 3 Est. Patient 15:32:41 [employer] Juan Smith MD [facility]-72729 Level 3 Est. Patient 14:45:01 CDT Eva Ferrara MD PhD [facility]-92591 Level 3 Est. Patient 14:54:10 CDT Ian Valdez MD [facility]-68650 Level 4 Est. Patient 20:36:52 CDT Ian Valdez MD [facility]-09329 Level 4 Est. Patient 11:14:30 [employer] Ian Valdez MD [facility]-21424 Level 3 Est. Patient 19:08:34 [employer] Ian Valdez MD [facility]-40685 Level 3 Est. Patient 13:17:39 [employer] Ian Valdez MD [facility] CPT-84837 Level 4 Est. Patient 18:56:10 CDT Ian Valdez MD [facility]-45903 Level 4 Est. Patient 16:55:56 CDT Ian Valdez MD [facility]-37493 Level 3 Est. Patient 11:27:07 CDT Ian Valdez MD [facility]-68796 Level 3 Est. Patient 15:17:44 CDT Law Rosas [facility] CPT-05387 Level 4 Est. Patient 15:13:53 CDT [place] Muniz [facility]-77598 Level 3 Est. Patient 14:25:12 [employer] Ian Valdez MD [facility]-21192 Level 3 Est. Patient 10:24:46 CDT Ian Valdez MD [facility] CPT-91342 Level 3 Est. Patient 15:34:19 CDT Ian Valdez MD [facility] CPT-17922 Level 3 Est. Patient 14:22:41 CDT Ian Valdez MD [facility] CPT-93026 Level 3 Est. Patient 15:07:22 [employer] Ian Valdez MD [facility] CPT-26508 Level 3 New Patient 09:06:43 [employer] Ian Valdez MD [facility] CPT-09107 Level 3 Est. Patient 15:09:00 [employer] Ian Valdez MD [facility] Procedures Code Procedure Name Date Entry Date Standard Description CPT-OV Office Visit 16:24:22 CDT CPT-OV Office Visit 15:15:29 [employer] CPT-OV Office Visit 15:49:26 [employer] CPT-J1885 Toradol 60 mg (Ketorolac) 15:37:32 CDT CPT-49262 Abx/Therapy Injection 15:37:32 CDT CPT-J1885 Toradol 60 mg (Ketorolac) 14:45:01 CDT CPT-OV Office Visit 15:19:52 CDT CPT-OV Office Visit 10:41:01 CDT CPT-89342 Core biop breast wo imaging 16:50:06 CDT CPT-OV Office Visit 16:50:05 CDT CPT-55996 UHCG (floor use only) 13:39:36 CDT CPT-58809 Nexplanon Placement 10:11:48 CDT CPT-J7307 Nexplanon (Implant) 10:11:48 CDT CPT-OV Office Visit 09:54:18 CDT CPT-08219 EKG Trac and Interp 16:50:19 CDT CPT-08323 Venipuncture Draw Fee 15:06:08 CDT CPT-J2930 Solu Medrol 125 mg (Methyl Prednisolone Sodium Succinate) 12:44:46 CDT CPT-J1055 Depo Provera 150 mg (Medroxyprogesterone) 12:44:46 CDT CPT-20470 Abx/Therapy Injection 12:44:46 CDT CPT-J1055 Depo Provera 150 mg (Medroxyprogesterone) 14:28:41 CDT CPT-J2930 Solu Medrol 125 mg (Methyl Prednisolone Sodium Succinate) 14:22:41 CDT CPT-90124 Administration single or combination vaccine inc oral 10 :08:06 CDT CPT-70692 Tdap 10:08:06 CDT CPT-G0402 Wlcm To Medicare Ex 22:17:30 CDT CPT-97442 Venipuncture Draw Fee 10:33:07 [employer] CPT-99495 Venipuncture Draw Fee 10:17:37 [employer] CPT-G0403 EKG Wlc To Medicare 22:17:30 CDT
--- OUTSIDE RECORDS SUMMARY | 2018-07-17 21:10 | XMS REPORT | Clinical Summary ---
Author Author Admin, ARIAN Organization [facility] Address Unknown Phone Unavailable Allergies, Adverse Reactions, [...] po BID PRN Constipation 10/07 MAGNESIUM CITRATE 20622850249 Active Carlos Mccormack MD Active DICLOFENAC SODIUM 50 MG ORAL TBEC TID PRN DICLOFENAC SODIUM 35897089418 Active Ian Valdez MD Active BUSPIRONE HCL 7.5 MG ORAL TABS 1 TAB PO BID PRN ANXIETY BUSPIRONE HCL 96714209196 Active Herminia Bear Active MEDROL (REBEKAH) 4 MG TABS 6 tabs on day 1, 5 tabs on day 2, 4 tabs on day 3, 3 tabs on day 4, 2 tabs on day 5, 1 tab on day 6 METHYLPREDNISOLONE 72661056912 No Longer Active Herminia Chema Active MELOXICAM 15 MG TABS 1 po q day for pain with food MELOXICAM 58411651892 Active Ian Valdez MD Active DOXYCYCLINE HYCLATE 100 MG CAP 1 cap by mouth twice daily DOXYCYCLINE HYCLATE 36090038028 No Longer Active Najma Vaughn [place] Active MULTIVITAMINS CAPS 1 tablet daily MULTIPLE VITAMIN 96822670976 Active Juan Smith MD Active CYCLOBENZAPRINE HCL 10 MG TABS 1/2 - 1 tab by mouth three times daily if needed for spasms/pain CYCLOBENZAPRINE HCL 89196050352 Active Ian Valdez MD Active GLUCOPHAGE 500 MG TABS 1 tab BID with morning and night meals METFORMIN HCL 17934877418 Active Eva Ferrara MD PhD Active PROGESTERONE MICRONIZED 100 MG CAPS 2 caps daily day 16 thru 25 of cycle 2013 PROGESTERONE MICRONIZED 19939929768 Active Eva Ferrara MD PhD Active TERBINAFINE HCL 1 % CREA Apply bid to rash TERBINAFINE HCL 36428715504 No Longer Active Eva Ferrara MD PhD Active TOPAMAX 25 MG TABS 1 tab po qhs x 1 week, then take 2 tabs po qhs TOPIRAMATE 48078396815 No Longer Active Thom Gilbert MD Active ULTRAM 50 MG TAB take 1 tab po q6hrs prn pain TRAMADOL HCL 48686846574 Active Ian Valdez MD Active LAMISIL AT 1 % CREA apply bid to rash TERBINAFINE HCL 76392335685 No Longer Active Thom Gilbert MD Active TERBINAFINE HCL 250 MG TABS 1 qDay TERBINAFINE HCL 06497763198 No Longer Active Ian Valdez MD Active XANAX 0.25 MG TABS take 1 tab po bid prn anxiety. ALPRAZOLAM 66582259882 No Longer Active Ian Valdez MD Active FISH OIL 1000 MG CAPS 2 caps PO once daily at bedtime OMEGA-3 FATTY ACIDS 42335679552 No Longer Active Ian Valdez MD Active KLOR-CON M20 20 MEQ CR-TABS take 1 tab po qday with lasix POTASSIUM CHLORIDE GALILEO CR 49578689960 Active Ian Valdez MD Active LASIX 20 MG TAB 1 tablet by mouth daily prn swelling FUROSEMIDE 73830680585 Active Ian Valdez MD Active FLONASE 50 MCG/ACT SUSP 2 puffs in each nostril once daily at bedtime FLUTICASONE PROPIONATE 20012535741 Active Ian Valdez MD Active [facility] MELATONIN 3 MG TABS 2 tabs PO at bedtime MELATONIN 44243801512 Active Ian Valdez MD Active PULMICORT FLEXHALER 180 MCG/ACT AEPB 2 INH BID BUDESONIDE 28363030771 No Longer Active Ian Valdez MD Active METFORMIN HCL 500 MG TB24 1 TAB PO Q HS METFORMIN HCL 47398527001 No Longer Active Ian Valdez MD Active CYCLOBENZAPRINE HCL 10 MG TABS 1 PO q 8 hrs PRN muscle spasm 2012 CYCLOBENZAPRINE HCL 67929072825 No Longer Active Ian Valdez MD Active AZITHROMYCIN 500 MG TABS 1 PO q day x 6 days AZITHROMYCIN 83480493267 No Longer Active Ian Valdez MD Active CIPRO 500 MG TAB 1 tablet by mouth twice daily CIPROFLOXACIN HCL 79678680533 No Longer Active Ian Valdez MD Active PREDNISONE 20 MG TABS 3 qd x 2d, 2 qd x 2d, 1 qd x 2d, 1/2 qd x 2d PREDNISONE 43898976553 No Longer Active Law FIGUEROA Active CELEXA 40 MG TABS 2 PO DAILY CITALOPRAM HYDROBROMIDE 84816599650 Active Ian Valdez MD Active OMEPRAZOLE 20 MG CPDR 1 tablet by mouth daily OMEPRAZOLE 75299268902 No Longer Active [place] FIGUEROA Active KLONOPIN 0.5 MG TABS 1 TABLET PO PRN CLONAZEPAM 27753676503 No Longer Active [place] FIGUEROA Active MOBIC 7.5 MG TABS 1 tablet by mouthonce a day MELOXICAM 94043010045 No Longer Active [place] FIGUEROA Active ZITHROMAX 1 GM PACK DIRECTED AZITHROMYCIN 37613111341 No Longer Active Ian Valdez MD Active ALBUTEROL SULFATE 0.083 % NEBU SOLN one vial per nebulizer every 4-6 hours as needed ALBUTEROL SULFATE 46092032181 Active Ian Valdez MD Active CHANTIX STARTING MONTH REBEKAH 0.5 MG X 11 & 1 MG X 42 TABS 0.5mg daily for 3 days , then 0.5mg BID for 4 days, then 1mg BID VARENICLINE TARTRATE 35567993514 No Longer Active Ian Valdez MD Active ZITHROMAX 1 GM PACK DIRECTED AZITHROMYCIN 58096727440 No Longer Active Ian Valdez MD Active AURALGAN 1.4-5.5 % SOLN BENZOCAINE-ANTIPYRINE 75388970114 No Longer Active Ian Valdez MD Active PREDNISONE 20 MG TAB 3 tabs daily for 3 days, 2 tab daily for 3 days, 1 tab daily for 2 days, then 1/2 tab dialy for 2 days PREDNISONE 44284930112 No Longer Active Ian Valdez MD Active SIMVASTATIN 40 MG TABS 1 TABLET PO Q HS SIMVASTATIN 89650282838 Active Ian Valdez MD Active SIMVASTATIN 80 MG TABS Take one by mouth daily SIMVASTATIN 58223604187 No Longer Active Ian Valdez MD Active PREDNISONE 20 MG TAB 2 tabs daily for 3 days, 1 tab daily for 3 days, 1/2 tab daily for 2 days PREDNISONE 72375478622 No Longer Active Ian Valdez MD Active ZITHROMAX 250 MG TAB 2 po today, then 1 po q days 2-5 AZITHROMYCIN 87494412116 No Longer Active Ian Valdez MD Active TRAZODONE HCL 100 MG TABS 2 TABS PO Q HS TRAZODONE HCL 35558093402 Active Ian Valdez MD Active ZITHROMAX 250 MG TAB 2 po today, then 1 po q days 2-5 AZITHROMYCIN 25642436803 No Longer Active Ian Valdez MD Active SIMVASTATIN 80 MG TABS Take one by mouth daily SIMVASTATIN 80 MG TABS 915966 SIMVASTATIN Inactive AURALGAN 1.4-5.5 % SOLN AURALGAN 1.4-5.5 % SOLN BENZOCAINE-ANTIPYRINE Inactive ZITHROMAX 1 GM PACK DIRECTED ZITHROMAX 1 GM PACK 179589 AZITHROMYCIN Inactive CHANTIX STARTING MONTH REBEKAH 0.5 MG X 11 & 1 MG X 42 TABS 0.5mg daily for 3 days , then 0.5mg BID for 4 days, then 1mg BID CHANTIX STARTING MONTH REBEKAH 0.5 MG X 11 & 1 MG X 42 TABS VARENICLINE TARTRATE Inactive ZITHROMAX 1 GM PACK DIRECTED ZITHROMAX 1 GM PACK 233294 AZITHROMYCIN Inactive MOBIC 7.5 MG TABS 1 tablet by mouthonce a day MOBIC 7.5 MG TABS 609799 MELOXICAM Inactive KLONOPIN 0.5 MG TABS 1 TABLET PO PRN KLONOPIN 0.5 MG TABS 331037 CLONAZEPAM Inactive CIPRO 500 MG TAB 1 tablet by mouth twice daily CIPRO 500 MG TAB 606855 CIPROFLOXACIN HCL Inactive AZITHROMYCIN 500 MG TABS 1 PO q day x 6 days AZITHROMYCIN 500 MG TABS 1846464 AZITHROMYCIN Inactive CYCLOBENZAPRINE HCL 10 MG TABS 1 PO q 8 hrs PRN muscle spasm 2012 CYCLOBENZAPRINE HCL 10 MG TABS 017505 CYCLOBENZAPRINE HCL Inactive METFORMIN HCL 500 MG [...] bid prn anxiety. XANAX 0.25 MG TABS 874435 ALPRAZOLAM Inactive LAMISIL AT 1 % CREA apply bid to rash LAMISIL AT 1 % CREA 830390 TERBINAFINE HCL Inactive TOPAMAX 25 MG TABS 1 tab po qhs x 1 week, then take 2 tabs po qhs TOPAMAX 25 MG TABS 227294 TOPIRAMATE Inactive TERBINAFINE HCL 1 % CREA Apply bid to rash TERBINAFINE HCL 1 % CREA 999333 TERBINAFINE HCL Inactive ZITHROMAX 250 MG TAB 2 po today, then 1 po q days 2-5 ZITHROMAX 250 MG TAB 5037691 AZITHROMYCIN Inactive ZITHROMAX 250 MG TAB 2 po today, then 1 po q days 2-5 ZITHROMAX 250 MG TAB 1227693 AZITHROMYCIN Inactive PREDNISONE 20 MG TAB 2 tabs daily for 3 days, 1 tab daily for 3 days, 1/2 tab daily for 2 days PREDNISONE 20 MG TAB 943152 PREDNISONE Inactive PREDNISONE 20 MG TAB 3 tabs daily for 3 days, 2 tab daily for 3 days, 1 tab daily for 2 days, then 1/2 tab dialy for 2 days PREDNISONE 20 MG TAB 381620 PREDNISONE Inactive OMEPRAZOLE 20 MG CPDR 1 tablet by mouth daily OMEPRAZOLE 20 MG CPDR 155410 OMEPRAZOLE Inactive PREDNISONE 20 MG TABS 3 qd x 2d, 2 qd x 2d, 1 qd x 2d, 1/2 qd x 2d PREDNISONE 20 MG TABS 236312 PREDNISONE Inactive TERBINAFINE HCL 250 MG TABS 1 qDay TERBINAFINE HCL 250 MG TABS 868041 TERBINAFINE HCL Inactive DOXYCYCLINE HYCLATE 100 MG CAP 1 cap by mouth twice daily DOXYCYCLINE HYCLATE 100 MG CAP 3274936 DOXYCYCLINE HYCLATE Inactive MEDROL (REBEKAH) 4 MG [...] and acellular pertussis vaccine, adsorbed), booster Boostrix [[id number]] tetanus toxoid, reduced diphtheria toxoid, and acellular [...] 1.44 m[iU]/mL 0.36-3.74 cholesterol, serum 144 mg/dL 010-259 9110/11/19 triglyceride, serum, fasting 172 mg/dL 30-200 HDL cholesterol, serum 30 mg/dL 32-96 LDL cholesterol, serum 80 mg/dL 0-130 sodium, serum 137 mmol/L 746-273 1838/11/19 potassium, serum 4.1 mmol/L 3.5-5.2 chloride, serum 100 mmol/L 98-107 carbon dioxide, venous blood 26.9 mmol/L 21.0-32.0 blood glucose 84 mg/dL 65-110 urea nitrogen, blood 11 mg/dL 7-18 creatinine, serum 0.90 mg/dL 0.60-1.30 alanine aminotransferase (SGPT), serum 23 U/L 12-78 aspartate aminotransferase (SGOT), serum 17 U/L 15-37 calcium, serum 9.5 mg/dL 8.5-10.1 bilirubin, serum, total 0.70 mg/dL 0.00-1.00 Lab Report: HIV-1/2 Agn/Ritu/09462, Chlamydia/GC APTIMA/39594 - Lab chlamydia DNA probe NOT DETECTED NOT DETECTED Lab Report: HIV-1/2 Agn/Ritu/85150, Chlamydia/GC APTIMA/85404 - Microbiology Neisseria gonorrhoeae DNA probe NOT DETECTED NOT DETECTED Lab Report: TONY INFLUENZA A/B - Toxicology rapid flu test Negative Negative;Positive Lab Report: [facility] [place] - Chemistry human chorionic gonadotropin, urine, qualitative (urine test) Negative Negative Office Visit: wellness exam for insurance/ diabetes check - Chemistry cholesterol, target level 200 mg/dL LDL target level 100 mg/dL HDL cholesterol, serum, target level 40 mg/dL triglyceride, target level 150 mg/dL Encounters Code Encounter Date Provider Facility CPT-77213 Level 3 Est. Patient 17:03:54 CDT Carlos Mccormack MD [facility] CPT-08621 Level 3 Est. Patient 20:15:16 CDT Ian Valdez MD [facility] CPT-21285 Level 3 Est. Patient 13:49:34 CDT Ian Valdez MD [facility] CPT-50624 Level 3 Est. Patient 15:50:27 WELDER FITTER APPRENTICE Najma Vaughn APRN [facility] CPT-94733 Level 4 Est. Patient 21:20:00 WELDER FITTER APPRENTICE Ian Valdez MD [facility] CPT-06595 Level 3 Est. Patient 15:32:41 WELDER FITTER APPRENTICE Juan Smith MD [facility] CPT-83222 Level 3 Est. Patient 14:45:01 CDT Eva Ferrara MD PhD [facility] CPT-94850 Level 3 Est. Patient 14:54:10 CDT Ian Valdez MD [facility] CPT-92178 Level 4 Est. Patient 20:36:52 CDT Ian Valdez MD [facility] CPT-45013 Level 4 Est. Patient 11:14:30 WELDER FITTER APPRENTICE Ian Valdez MD [facility] CPT-33569 Level 3 Est. Patient 19:08:34 WELDER FITTER APPRENTICE Ian Valdez MD [facility] CPT-35644 Level 3 Est. Patient 13:17:39 WELDER FITTER APPRENTICE Ian Valdez MD [facility] CPT-05628 Level 4 Est. Patient 18:56:10 CDT Ian Valdez MD [facility] CPT-57177 Level 4 Est. Patient 16:55:56 CDT Ian Valdez MD [facility] CPT-05439 Level 3 Est. Patient 11:27:07 CDT Ian Valdez MD [facility] CPT-70087 Level 3 Est. Patient 15:17:44 CDT Law Rosas [facility] CPT-43379 Level 4 Est. Patient 15:13:53 CDT Wellington Muniz [facility] CPT-91533 Level 3 Est. Patient 14:25:12 WELDER FITTER APPRENTICE Ian Valdez MD [facility] CPT-10681 Level 3 Est. Patient 10:24:46 CDT Ian Valdez MD [facility] CPT-23549 Level 3 Est. Patient 15:34:19 CDT Ian Valdez MD [facility] CPT-43710 Level 3 Est. Patient 14:22:41 CDT Ian Valdez MD [facility] CPT-36715 Level 3 Est. Patient 15:07:22 WELDER FITTER APPRENTICE Ian Valdez MD [facility] CPT-53924 Level 3 New Patient 09:06:43 WELDER FITTER APPRENTICE Ian Valdez MD [facility] CPT-40462 Level 3 Est. Patient 15:09:00 WELDER FITTER APPRENTICE Ian Valdez MD [facility] Procedures Code Procedure Name Date Entry Date Standard Description CPT-J1050 Depo Provera 150 mg (Medroxyprogesterone) 15:27:21 CDT CPT-37590 Abx/Therapy Injection 15:27:21 CDT CPT-13859 Abd compl w upright 17:11:01 CDT CPT-OV Office Visit 16:24:22 CDT CPT-OV Office Visit 15:15:29 WELDER FITTER APPRENTICE CPT-OV Office Visit 15:49:26 WELDER FITTER APPRENTICE CPT-J1885 Toradol 60 mg (Ketorolac) 15:37:32 CDT CPT-25733 Abx/Therapy Injection 15:37:32 CDT CPT-J1885 Toradol 60 mg (Ketorolac) 14:45:01 CDT CPT-OV Office Visit 15:19:52 CDT CPT-OV Office Visit 10:41:01 CDT CPT-72350 Core biop breast wo imaging 16:50:06 CDT CPT-OV Office Visit 16:50:05 CDT CPT-88196 UHCG (floor use only) 13:39:36 CDT CPT-49401 Nexplanon Placement 10:11:48 CDT CPT-J7307 Nexplanon (Implant) 10:11:48 CDT CPT-OV Office Visit 09:54:18 CDT CPT-43256 EKG Trac and Interp 16:50:19 CDT CPT-18400 Venipuncture Draw Fee 15:06:08 CDT CPT-J2930 Solu Medrol 125 mg (Methyl Prednisolone Sodium Succinate) 12:44:46 CDT CPT-J1055 Depo Provera 150 mg (Medroxyprogesterone) 12:44:46 CDT CPT-22250 Abx/Therapy Injection 12:44:46 CDT CPT-J1055 Depo Provera 150 mg (Medroxyprogesterone) 14:28:41 CDT CPT-J2930 Solu Medrol 125 mg (Methyl Prednisolone Sodium Succinate) 14:22:41 CDT CPT-34727 Administration single or combination vaccine inc oral 10 :08:06 CDT CPT-98424 Tdap 10:08:06 CDT CPT-G0402 Wlcm To Medicare Ex 22:17:30 CDT CPT-96738 Venipuncture Draw Fee 10:33:07 WELDER FITTER APPRENTICE CPT-12001 Venipuncture Draw Fee 10:17:37 WELDER FITTER APPRENTICE CPT-G0403 EKG Wlc To Medicare 22:17:30 CDT
--- OUTSIDE RECORDS SUMMARY | 2018-07-17 21:11 | XMS REPORT | Clinical Summary ---
Author Author Admin, ARIAN Organization [facility] Address Unknown Phone Unavailable Allergies, [...] Valdez MD ABDOMINAL CRAMPS ICD-789.00 Inactive Ian Vadlez MD BRONCHITIS, ACUTE ICD-466.0 Inactive Ian Valdez [...] po BID PRN Constipation 10/07 MAGNESIUM CITRATE 03895990333 Active Carlos Mccormack MD Active DICLOFENAC SODIUM 50 MG ORAL TBEC TID PRN DICLOFENAC SODIUM 85772894442 Active Ian Valdez MD Active BUSPIRONE HCL 7.5 MG ORAL TABS 1 TAB PO BID PRN ANXIETY BUSPIRONE HCL 66874621066 Active Herminia Bear Active MEDROL (REBEKAH) 4 MG TABS 6 tabs on day 1, 5 tabs on day 2, 4 tabs on day 3, 3 tabs on day 4, 2 tabs on day 5, 1 tab on day 6 METHYLPREDNISOLONE 59913532112 No Longer Active Herminia Chema Active MELOXICAM 15 MG TABS 1 po q day for pain with food MELOXICAM 03388247532 Active Ian Valdez MD Active DOXYCYCLINE HYCLATE 100 MG CAP 1 cap by mouth twice daily DOXYCYCLINE HYCLATE 19194126523 No Longer Active Najma Vaughn TROUBLE LOCATOR TEST DESK Active MULTIVITAMINS CAPS 1 tablet daily MULTIPLE VITAMIN 63026194647 Active Juan Smith MD Active CYCLOBENZAPRINE HCL 10 MG TABS 1/2 - 1 tab by mouth three times daily if needed for spasms/pain CYCLOBENZAPRINE HCL 54174490619 Active Ian Valdez MD Active GLUCOPHAGE 500 MG TABS 1 tab BID with morning and night meals METFORMIN HCL 98668370849 Active Eva Ferrara MD PhD Active PROGESTERONE MICRONIZED 100 MG CAPS 2 caps daily day 16 thru 25 of cycle 2013 PROGESTERONE MICRONIZED 22253512937 Active Eva Ferrara MD PhD Active TERBINAFINE HCL 1 % CREA Apply bid to rash TERBINAFINE HCL 99384055568 No Longer Active Eva Ferrara MD PhD Active TOPAMAX 25 MG TABS 1 tab po qhs x 1 week, then take 2 tabs po qhs TOPIRAMATE 04173959130 No Longer Active Thom Gilbert MD Active ULTRAM 50 MG TAB take 1 tab po q6hrs prn pain TRAMADOL HCL 33024590804 Active Ian Valdez MD Active LAMISIL AT 1 % CREA apply bid to rash TERBINAFINE HCL 30491568138 No Longer Active Thom Gilbert MD Active TERBINAFINE HCL 250 MG TABS 1 qDay TERBINAFINE HCL 56854791730 No Longer Active Ian Valdez MD Active XANAX 0.25 MG TABS take 1 tab po bid prn anxiety. ALPRAZOLAM 57889505561 No Longer Active Ian Valdez MD Active FISH OIL 1000 MG CAPS 2 caps PO once daily at bedtime OMEGA-3 FATTY ACIDS 34624133282 No Longer Active Ian Valdez MD Active KLOR-CON M20 20 MEQ CR-TABS take 1 tab po qday with lasix POTASSIUM CHLORIDE GALILEO CR 62117372571 Active Ian Valdez MD Active LASIX 20 MG TAB 1 tablet by mouth daily prn swelling FUROSEMIDE 06808095967 Active Ian Valdez MD Active FLONASE 50 MCG/ACT SUSP 2 puffs in each nostril once daily at bedtime FLUTICASONE PROPIONATE 83657709943 Active Ian Valdez MD Active CVS MELATONIN 3 MG TABS 2 tabs PO at bedtime MELATONIN 33527244609 Active Ian Valdez MD Active PULMICORT FLEXHALER 180 MCG/ACT AEPB 2 INH BID BUDESONIDE 46291314326 No Longer Active Ian Valdez MD Active METFORMIN HCL 500 MG TB24 1 TAB PO Q HS METFORMIN HCL 77162478249 No Longer Active Ian Valdez MD Active CYCLOBENZAPRINE HCL 10 MG TABS 1 PO q 8 hrs PRN muscle spasm 2012 CYCLOBENZAPRINE HCL 64166927032 No Longer Active aIn Valdez MD Active AZITHROMYCIN 500 MG TABS 1 PO q day x 6 days AZITHROMYCIN 77631814761 No Longer Active Ian Valdez MD Active CIPRO 500 MG TAB 1 tablet by mouth twice daily CIPROFLOXACIN HCL 24654332210 No Longer Active Ian Valdez MD Active PREDNISONE 20 MG TABS 3 qd x 2d, 2 qd x 2d, 1 qd x 2d, 1/2 qd x 2d PREDNISONE 99484405868 No Longer Active Law FIGUEROA Active CELEXA 40 MG TABS 2 PO DAILY CITALOPRAM HYDROBROMIDE 07080202655 Active Ian Valdez MD Active OMEPRAZOLE 20 MG CPDR 1 tablet by mouth daily OMEPRAZOLE 24456293879 No Longer Active [place] FIGUEROA Active KLONOPIN 0.5 MG TABS 1 TABLET PO PRN CLONAZEPAM 98958007873 No Longer Active [place] FIGUEROA Active MOBIC 7.5 MG TABS 1 tablet by mouthonce a day MELOXICAM 22440350357 No Longer Active [place] FIGUEROA Active ZITHROMAX 1 GM PACK DIRECTED AZITHROMYCIN 01168401781 No Longer Active Ian Valdze MD Active ALBUTEROL SULFATE 0.083 % NEBU SOLN one vial per nebulizer every 4-6 hours as needed ALBUTEROL SULFATE 86643374035 Active Ian Valdez MD Active CHANTIX STARTING MONTH REBEKAH 0.5 MG X 11 & 1 MG X 42 TABS 0.5mg daily for 3 days , then 0.5mg BID for 4 days, then 1mg BID VARENICLINE TARTRATE 80705420027 No Longer Active Ian Valdez MD Active ZITHROMAX 1 GM PACK DIRECTED AZITHROMYCIN 53958126760 No Longer Active Ian Valdez MD Active AURALGAN 1.4-5.5 % SOLN BENZOCAINE-ANTIPYRINE 00148161436 No Longer Active Ian Valdez MD Active PREDNISONE 20 MG TAB 3 tabs daily for 3 days, 2 tab daily for 3 days, 1 tab daily for 2 days, then 1/2 tab dialy for 2 days PREDNISONE 85365805178 No Longer Active Ian Valdez MD Active SIMVASTATIN 40 MG TABS 1 TABLET PO Q HS SIMVASTATIN 29080390188 Active Ian Valdez MD Active SIMVASTATIN 80 MG TABS Take one by mouth daily SIMVASTATIN 59073872267 No Longer Active Ian Valdez MD Active PREDNISONE 20 MG TAB 2 tabs daily for 3 days, 1 tab daily for 3 days, 1/2 tab daily for 2 days PREDNISONE 03622219939 No Longer Active Ian Valdez MD Active ZITHROMAX 250 MG TAB 2 po today, then 1 po q days 2-5 AZITHROMYCIN 20649502504 No Longer Active Ian Valdez MD Active TRAZODONE HCL 100 MG TABS 2 TABS PO Q HS TRAZODONE HCL 69216959555 Active Ian Valdez MD Active ZITHROMAX 250 MG TAB 2 po today, then 1 po q days 2-5 AZITHROMYCIN 64235983753 No Longer Active Ian Valdez MD Active SIMVASTATIN 80 MG TABS Take one by mouth daily SIMVASTATIN 80 MG TABS 840060 SIMVASTATIN Inactive AURALGAN 1.4-5.5 % SOLN AURALGAN 1.4-5.5 % SOLN BENZOCAINE-ANTIPYRINE Inactive ZITHROMAX 1 GM PACK DIRECTED ZITHROMAX 1 GM PACK 234740 AZITHROMYCIN Inactive CHANTIX STARTING MONTH REBEKAH 0.5 MG X 11 & 1 MG X 42 TABS 0.5mg daily for 3 days , then 0.5mg BID for 4 days, then 1mg BID CHANTIX STARTING MONTH REBEKAH 0.5 MG X 11 & 1 MG X 42 TABS VARENICLINE TARTRATE Inactive ZITHROMAX 1 GM PACK DIRECTED ZITHROMAX 1 GM PACK 187935 AZITHROMYCIN Inactive MOBIC 7.5 MG TABS 1 tablet by mouthonce a day MOBIC 7.5 MG TABS 823324 MELOXICAM Inactive KLONOPIN 0.5 MG TABS 1 TABLET PO PRN KLONOPIN 0.5 MG TABS 426790 CLONAZEPAM Inactive CIPRO 500 MG TAB 1 tablet by mouth twice daily CIPRO 500 MG TAB 768408 CIPROFLOXACIN HCL Inactive AZITHROMYCIN 500 MG TABS 1 PO q day x 6 days AZITHROMYCIN 500 MG TABS 1568191 AZITHROMYCIN Inactive CYCLOBENZAPRINE HCL 10 MG TABS 1 PO q 8 hrs PRN muscle spasm 2012 CYCLOBENZAPRINE HCL 10 MG TABS 200118 CYCLOBENZAPRINE HCL Inactive METFORMIN HCL 500 MG [...] bid prn anxiety. XANAX 0.25 MG TABS 989075 ALPRAZOLAM Inactive LAMISIL AT 1 % CREA apply bid to rash LAMISIL AT 1 % CREA 330509 TERBINAFINE HCL Inactive TOPAMAX 25 MG TABS 1 tab po qhs x 1 week, then take 2 tabs po qhs TOPAMAX 25 MG TABS 448588 TOPIRAMATE Inactive TERBINAFINE HCL 1 % CREA Apply bid to rash TERBINAFINE HCL 1 % CREA 265640 TERBINAFINE HCL Inactive ZITHROMAX 250 MG TAB 2 po today, then 1 po q days 2-5 ZITHROMAX 250 MG TAB 1203630 AZITHROMYCIN Inactive ZITHROMAX 250 MG TAB 2 po today, then 1 po q days 2-5 ZITHROMAX 250 MG TAB 7261227 AZITHROMYCIN Inactive PREDNISONE 20 MG TAB 2 tabs daily for 3 days, 1 tab daily for 3 days, 1/2 tab daily for 2 days PREDNISONE 20 MG TAB 243225 PREDNISONE Inactive PREDNISONE 20 MG TAB 3 tabs daily for 3 days, 2 tab daily for 3 days, 1 tab daily for 2 days, then 1/2 tab dialy for 2 days PREDNISONE 20 MG TAB 312420 PREDNISONE Inactive OMEPRAZOLE 20 MG CPDR 1 tablet by mouth daily OMEPRAZOLE 20 MG CPDR 434000 OMEPRAZOLE Inactive PREDNISONE 20 MG TABS 3 qd x 2d, 2 qd x 2d, 1 qd x 2d, 1/2 qd x 2d PREDNISONE 20 MG TABS 262706 PREDNISONE Inactive TERBINAFINE HCL 250 MG TABS 1 qDay TERBINAFINE HCL 250 MG TABS 787347 TERBINAFINE HCL Inactive DOXYCYCLINE HYCLATE 100 MG CAP 1 cap by mouth twice daily DOXYCYCLINE HYCLATE 100 MG CAP 5297510 DOXYCYCLINE HYCLATE Inactive MEDROL (REBEKAH) 4 MG [...] and acellular pertussis vaccine, adsorbed), booster Boostrix [[id number]] tetanus toxoid, reduced diphtheria toxoid, and acellular [...] 1.44 m[iU]/mL 0.36-3.74 cholesterol, serum 144 mg/dL 898-649 5972/11/19 triglyceride, serum, fasting 172 mg/dL 30-200 HDL cholesterol, serum 30 mg/dL 32-96 LDL cholesterol, serum 80 mg/dL 0-130 sodium, serum 137 mmol/L 553-643 8994/11/19 potassium, serum 4.1 mmol/L 3.5-5.2 chloride, serum 100 mmol/L 98-107 carbon dioxide, venous blood 26.9 mmol/L 21.0-32.0 blood glucose 84 mg/dL 65-110 urea nitrogen, blood 11 mg/dL 7-18 creatinine, serum 0.90 mg/dL 0.60-1.30 alanine aminotransferase (SGPT), serum 23 U/L 12-78 aspartate aminotransferase (SGOT), serum 17 U/L 15-37 calcium, serum 9.5 mg/dL 8.5-10.1 bilirubin, serum, total 0.70 mg/dL 0.00-1.00 Lab Report: HIV-1/2 Agn/Ritu/61178, Chlamydia/GC APTIMA/03447 - Lab chlamydia DNA probe NOT DETECTED NOT DETECTED Lab Report: HIV-1/2 Agn/Ritu/35113, Chlamydia/GC APTIMA/60662 - Microbiology Neisseria gonorrhoeae DNA probe NOT DETECTED NOT DETECTED Lab Report: TONY INFLUENZA A/B - Toxicology rapid flu test Negative Negative;Positive Office Visit: wellness exam for insurance/ diabetes check - Chemistry cholesterol, target level 200 mg/dL LDL target level 100 mg/dL HDL cholesterol, serum, target level 40 mg/dL triglyceride, target level 150 mg/dL Encounters Code Encounter Date Provider Facility CPT-56178 Level 3 Est. Patient 17:03:54 CDT Carlos Mccormack MD [facility] CPT-43200 Level 3 Est. Patient 20:15:16 CDT Ian Valdez MD [facility] CPT-62800 Level 3 Est. Patient 13:49:34 CDT Ian Valdez MD [facility] CPT-19120 Level 3 Est. Patient 15:50:27 LOGISTICS OPERATIONS MANAGER Najma Vaughn APRN [facility] CPT-31260 Level 4 Est. Patient 21:20:00 LOGISTICS OPERATIONS MANAGER Ian Valdez MD [facility] CPT-79463 Level 3 Est. Patient 15:32:41 LOGISTICS OPERATIONS MANAGER Juan Smith MD [facility] CPT-81658 Level 3 Est. Patient 14:45:01 CDT Eva Ferrara MD PhD [facility] CPT-08725 Level 3 Est. Patient 14:54:10 CDT Ian Valdez MD [facility] CPT-78692 Level 4 Est. Patient 20:36:52 CDT Ian Valdez MD [facility] CPT-61842 Level 4 Est. Patient 11:14:30 LOGISTICS OPERATIONS MANAGER Ian Valdez MD [facility] CPT-67455 Level 3 Est. Patient 19:08:34 LOGISTICS OPERATIONS MANAGER Ian Valdez MD [facility] CPT-20445 Level 3 Est. Patient 13:17:39 LOGISTICS OPERATIONS MANAGER Ian Valdez MD [facility] CPT-44476 Level 4 Est. Patient 18:56:10 CDT Ian Valdez MD [facility] CPT-17872 Level 4 Est. Patient 16:55:56 CDT Ian Valdez MD [facility] CPT-29176 Level 3 Est. Patient 11:27:07 CDT Ian Valdez MD [facility] CPT-90747 Level 3 Est. Patient 15:17:44 CDT Law Rosas [facility] CPT-58150 Level 4 Est. Patient 15:13:53 CDT Wellington Muniz [facility] CPT-38616 Level 3 Est. Patient 14:25:12 LOGISTICS OPERATIONS MANAGER Ian Valdez MD [facility] CPT-51191 Level 3 Est. Patient 10:24:46 CDT Ian Valdez MD [facility] CPT-38245 Level 3 Est. Patient 15:34:19 CDT Ian Valdez MD [facility] CPT-24754 Level 3 Est. Patient 14:22:41 CDT Ian Valdez MD [facility] CPT-88998 Level 3 Est. Patient 15:07:22 LOGISTICS OPERATIONS MANAGER Ian Valdez MD [facility] CPT-06614 Level 3 New Patient 09:06:43 LOGISTICS OPERATIONS MANAGER Ian Valdez MD [facility] CPT-37372 Level 3 Est. Patient 15:09:00 LOGISTICS OPERATIONS MANAGER Ian Valdez MD [facility] Procedures Code Procedure Name Date Entry Date Standard Description CPT-27755 Abd compl w upright 17:11:01 CDT CPT-OV Office Visit 16:24:22 CDT CPT-OV Office Visit 15:15:29 LOGISTICS OPERATIONS MANAGER CPT-OV Office Visit 15:49:26 LOGISTICS OPERATIONS MANAGER CPT-J1885 Toradol 60 mg (Ketorolac) 15:37:32 CDT CPT-29649 Abx/Therapy Injection 15:37:32 CDT CPT-J1885 Toradol 60 mg (Ketorolac) 14:45:01 CDT CPT-OV Office Visit 15:19:52 CDT CPT-OV Office Visit 10:41:01 CDT CPT-56488 Core biop breast wo imaging 16:50:06 CDT CPT-OV Office Visit 16:50:05 CDT CPT-59163 UHCG (floor use only) 13:39:36 CDT CPT-18132 Nexplanon Placement 10:11:48 CDT CPT-J7307 Nexplanon (Implant) 10:11:48 CDT CPT-OV Office Visit 09:54:18 CDT CPT-92316 EKG Trac and Interp 16:50:19 CDT CPT-65654 Venipuncture Draw Fee 15:06:08 CDT CPT-J2930 Solu Medrol 125 mg (Methyl Prednisolone Sodium Succinate) 12:44:46 CDT CPT-J1055 Depo Provera 150 mg (Medroxyprogesterone) 12:44:46 CDT CPT-64749 Abx/Therapy Injection 12:44:46 CDT CPT-J1055 Depo Provera 150 mg (Medroxyprogesterone) 14:28:41 CDT CPT-J2930 Solu Medrol 125 mg (Methyl Prednisolone Sodium Succinate) 14:22:41 CDT CPT-21078 Administration single or combination vaccine inc oral 10 :08:06 CDT CPT-85942 Tdap 10:08:06 CDT CPT-G0402 Wlcm To Medicare Ex 22:17:30 CDT CPT-38510 Venipuncture Draw Fee 10:33:07 LOGISTICS OPERATIONS MANAGER CPT-59105 Venipuncture Draw Fee 10:17:37 LOGISTICS OPERATIONS MANAGER CPT-G0403 EKG Wl To Medicare 22:17:30 CDT
--- OUTSIDE RECORDS SUMMARY | 2018-07-17 21:12 | XMS REPORT | Clinical Summary ---
Author Author Admin, ARIAN Organization [facility] Address Unknown Phone Unavailable Allergies, Adverse Reactions, Alerts Allergy Name Reaction Description Start Date Severity Status Provider LATEX GLOVES Critical Active Ian Valdez MD HALDOL Critical Active Ian Valdez MD PENICILLIN Critical Active aIn Valdez MD Conditions or Problems Problem Name [...] procreative management Tinea cruris 110.3 Resolved Thom Giblert MD Dermatophytosis of groin and perianal area [...] Gilbert MD CONTACT DERMATITIS DUE TO POISON CARIEN ICD-692.6 Inactive Ian Valdez MD CONTRACEPTIVE MANAGEMENT [...] po BID PRN Constipation 10/07 MAGNESIUM CITRATE 64205022356 Active Carlos Mccormack MD Active DICLOFENAC SODIUM 50 MG ORAL TBEC TID PRN DICLOFENAC SODIUM 40231691392 Active Ian Valdez MD Active BUSPIRONE HCL 7.5 MG ORAL TABS 1 TAB PO BID PRN ANXIETY BUSPIRONE HCL 33800906689 Active Herminia Bear Active MEDROL (REBEKAH) 4 MG TABS 6 tabs on day 1, 5 tabs on day 2, 4 tabs on day 3, 3 tabs on day 4, 2 tabs on day 5, 1 tab on day 6 METHYLPREDNISOLONE 56657763203 No Longer Active Herminia Chema Active MELOXICAM 15 MG TABS 1 po q day for pain with food MELOXICAM 14909666458 Active Ian Valdez MD Active DOXYCYCLINE HYCLATE 100 MG CAP 1 cap by mouth twice daily DOXYCYCLINE HYCLATE 22951920992 No Longer Active Najma Vaughn [employer] Active MULTIVITAMINS CAPS 1 tablet daily MULTIPLE VITAMIN 54275638017 Active Juan Smith MD Active CYCLOBENZAPRINE HCL 10 MG TABS 1/2 - 1 tab by mouth three times daily if needed for spasms/pain CYCLOBENZAPRINE HCL 49705998045 Active Ian Valdez MD Active GLUCOPHAGE 500 MG TABS 1 tab BID with morning and night meals METFORMIN HCL 76248007674 Active Eva Ferrara MD PhD Active PROGESTERONE MICRONIZED 100 MG CAPS 2 caps daily day 16 thru 25 of cycle 2013 PROGESTERONE MICRONIZED 83064249409 Active Eva Ferrara MD PhD Active TERBINAFINE HCL 1 % CREA Apply bid to rash TERBINAFINE HCL 87124659136 No Longer Active Eva Ferrara MD PhD Active TOPAMAX 25 MG TABS 1 tab po qhs x 1 week, then take 2 tabs po qhs TOPIRAMATE 77376201228 No Longer Active Thom Gilbert MD Active ULTRAM 50 MG TAB take 1 tab po q6hrs prn pain TRAMADOL HCL 73406345789 Active Ian Valdez MD Active LAMISIL AT 1 % CREA apply bid to rash TERBINAFINE HCL 66847738728 No Longer Active Thom Gilbert MD Active TERBINAFINE HCL 250 MG TABS 1 qDay TERBINAFINE HCL 98158392114 No Longer Active Ian Valdez MD Active XANAX 0.25 MG TABS take 1 tab po bid prn anxiety. ALPRAZOLAM 93628485347 No Longer Active Ian Valdez MD Active FISH OIL 1000 MG CAPS 2 caps PO once daily at bedtime OMEGA-3 FATTY ACIDS 28759159172 No Longer Active Ian Valdez MD Active KLOR-CON M20 20 MEQ CR-TABS take 1 tab po qday with lasix POTASSIUM CHLORIDE GALILEO CR 58255179383 Active Ian Valdez MD Active LASIX 20 MG TAB 1 tablet by mouth daily prn swelling FUROSEMIDE 46426169368 Active Ian Valdez MD Active FLONASE 50 MCG/ACT SUSP 2 puffs in each nostril once daily at bedtime FLUTICASONE PROPIONATE 84906746700 Active Ian Valdez MD Active [facility] MELATONIN 3 MG TABS 2 tabs PO at bedtime MELATONIN 63155736788 Active Ian Valdez MD Active PULMICORT FLEXHALER 180 MCG/ACT AEPB 2 INH BID BUDESONIDE 72213218815 No Longer Active Ian Valdez MD Active METFORMIN HCL 500 MG TB24 1 TAB PO Q HS METFORMIN HCL 69901593682 No Longer Active Ian Valdez MD Active CYCLOBENZAPRINE HCL 10 MG TABS 1 PO q 8 hrs PRN muscle spasm 2012 CYCLOBENZAPRINE HCL 16853359638 No Longer Active Ian Valdez MD Active AZITHROMYCIN 500 MG TABS 1 PO q day x 6 days AZITHROMYCIN 24435954760 No Longer Active Ian Valdez MD Active CIPRO 500 MG TAB 1 tablet by mouth twice daily CIPROFLOXACIN HCL 29153648415 No Longer Active Ian Valdez MD Active PREDNISONE 20 MG TABS 3 qd x 2d, 2 qd x 2d, 1 qd x 2d, 1/2 qd x 2d PREDNISONE 52552779271 No Longer Active Law FIGUEROA Active CELEXA 40 MG TABS 2 PO DAILY CITALOPRAM HYDROBROMIDE 53500190589 Active Ian Valdez MD Active OMEPRAZOLE 20 MG CPDR 1 tablet by mouth daily OMEPRAZOLE 95179113183 No Longer Active [place] FIGUEROA Active KLONOPIN 0.5 MG TABS 1 TABLET PO PRN CLONAZEPAM 87575436139 No Longer Active [place] FIGUEROA Active MOBIC 7.5 MG TABS 1 tablet by mouthonce a day MELOXICAM 37813256223 No Longer Active [place] FIGUEROA Active ZITHROMAX 1 GM PACK DIRECTED AZITHROMYCIN 62623641912 No Longer Active Ian Valdez MD Active ALBUTEROL SULFATE 0.083 % NEBU SOLN one vial per nebulizer every 4-6 hours as needed ALBUTEROL SULFATE 02122076199 Active Ian Valdez MD Active CHANTIX STARTING MONTH REBEKAH 0.5 MG X 11 & 1 MG X 42 TABS 0.5mg daily for 3 days , then 0.5mg BID for 4 days, then 1mg BID VARENICLINE TARTRATE 61937344639 No Longer Active Ian Valdez MD Active ZITHROMAX 1 GM PACK DIRECTED AZITHROMYCIN 73851645117 No Longer Active Ian Valdez MD Active AURALGAN 1.4-5.5 % SOLN BENZOCAINE-ANTIPYRINE 02254841108 No Longer Active Ian Valdez MD Active PREDNISONE 20 MG TAB 3 tabs daily for 3 days, 2 tab daily for 3 days, 1 tab daily for 2 days, then 1/2 tab dialy for 2 days PREDNISONE 78786445866 No Longer Active Ian Valdez MD Active SIMVASTATIN 40 MG TABS 1 TABLET PO Q HS SIMVASTATIN 37947684213 Active Ian Valdez MD Active SIMVASTATIN 80 MG TABS Take one by mouth daily SIMVASTATIN 07954588718 No Longer Active Ian Valdez MD Active PREDNISONE 20 MG TAB 2 tabs daily for 3 days, 1 tab daily for 3 days, 1/2 tab daily for 2 days PREDNISONE 13991311307 No Longer Active Ian Valdez MD Active ZITHROMAX 250 MG TAB 2 po today, then 1 po q days 2-5 AZITHROMYCIN 28925459183 No Longer Active Ian Valdez MD Active TRAZODONE HCL 100 MG TABS 2 TABS PO Q HS TRAZODONE HCL 86914049210 Active Ian Valdez MD Active ZITHROMAX 250 MG TAB 2 po today, then 1 po q days 2-5 AZITHROMYCIN 14254071796 No Longer Active Ian Valdez MD Active SIMVASTATIN 80 MG TABS Take one by mouth daily SIMVASTATIN 80 MG TABS 112456 SIMVASTATIN Inactive AURALGAN 1.4-5.5 % SOLN AURALGAN 1.4-5.5 % SOLN BENZOCAINE-ANTIPYRINE Inactive ZITHROMAX 1 GM PACK DIRECTED ZITHROMAX 1 GM PACK 434878 AZITHROMYCIN Inactive CHANTIX STARTING MONTH REBEKAH 0.5 MG X 11 & 1 MG X 42 TABS 0.5mg daily for 3 days , then 0.5mg BID for 4 days, then 1mg BID CHANTIX STARTING MONTH REBEKAH 0.5 MG X 11 & 1 MG X 42 TABS VARENICLINE TARTRATE Inactive ZITHROMAX 1 GM PACK DIRECTED ZITHROMAX 1 GM PACK 720822 AZITHROMYCIN Inactive MOBIC 7.5 MG TABS 1 tablet by mouthonce a day MOBIC 7.5 MG TABS 357530 MELOXICAM Inactive KLONOPIN 0.5 MG TABS 1 TABLET PO PRN KLONOPIN 0.5 MG TABS 807681 CLONAZEPAM Inactive CIPRO 500 MG TAB 1 tablet by mouth twice daily CIPRO 500 MG TAB 348486 CIPROFLOXACIN HCL Inactive AZITHROMYCIN 500 MG TABS 1 PO q day x 6 days AZITHROMYCIN 500 MG TABS 9394643 AZITHROMYCIN Inactive CYCLOBENZAPRINE HCL 10 MG TABS 1 PO q 8 hrs PRN muscle spasm 2012 CYCLOBENZAPRINE HCL 10 MG TABS 176598 CYCLOBENZAPRINE HCL Inactive METFORMIN HCL 500 MG [...] bid prn anxiety. XANAX 0.25 MG TABS 166199 ALPRAZOLAM Inactive LAMISIL AT 1 % CREA apply bid to rash LAMISIL AT 1 % CREA 074143 TERBINAFINE HCL Inactive TOPAMAX 25 MG TABS 1 tab po qhs x 1 week, then take 2 tabs po qhs TOPAMAX 25 MG TABS 076965 TOPIRAMATE Inactive TERBINAFINE HCL 1 % CREA Apply bid to rash TERBINAFINE HCL 1 % CREA 958942 TERBINAFINE HCL Inactive ZITHROMAX 250 MG TAB 2 po today, then 1 po q days 2-5 ZITHROMAX 250 MG TAB 0152638 AZITHROMYCIN Inactive ZITHROMAX 250 MG TAB 2 po today, then 1 po q days 2-5 ZITHROMAX 250 MG TAB 0631940 AZITHROMYCIN Inactive PREDNISONE 20 MG TAB 2 tabs daily for 3 days, 1 tab daily for 3 days, 1/2 tab daily for 2 days PREDNISONE 20 MG TAB 292094 PREDNISONE Inactive PREDNISONE 20 MG TAB 3 tabs daily for 3 days, 2 tab daily for 3 days, 1 tab daily for 2 days, then 1/2 tab dialy for 2 days PREDNISONE 20 MG TAB 355400 PREDNISONE Inactive OMEPRAZOLE 20 MG CPDR 1 tablet by mouth daily OMEPRAZOLE 20 MG CPDR 964581 OMEPRAZOLE Inactive PREDNISONE 20 MG TABS 3 qd x 2d, 2 qd x 2d, 1 qd x 2d, 1/2 qd x 2d PREDNISONE 20 MG TABS 794210 PREDNISONE Inactive TERBINAFINE HCL 250 MG TABS 1 qDay TERBINAFINE HCL 250 MG TABS 707485 TERBINAFINE HCL Inactive DOXYCYCLINE HYCLATE 100 MG CAP 1 cap by mouth twice daily DOXYCYCLINE HYCLATE 100 MG CAP 0646039 DOXYCYCLINE HYCLATE Inactive MEDROL (REBEKAH) 4 MG [...] and acellular pertussis vaccine, adsorbed), booster Boostrix [[id number]] tetanus toxoid, reduced diphtheria toxoid, and acellular [...] 1.44 m[iU]/mL 0.36-3.74 cholesterol, serum 144 mg/dL 609-742 2487/11/19 triglyceride, serum, fasting 172 mg/dL 30-200 HDL cholesterol, serum 30 mg/dL 32-96 LDL cholesterol, serum 80 mg/dL 0-130 sodium, serum 137 mmol/L 224-850 6884/11/19 potassium, serum 4.1 mmol/L 3.5-5.2 chloride, serum 100 mmol/L 98-107 carbon dioxide, venous blood 26.9 mmol/L 21.0-32.0 blood glucose 84 mg/dL 65-110 urea nitrogen, blood 11 mg/dL 7-18 creatinine, serum 0.90 mg/dL 0.60-1.30 alanine aminotransferase (SGPT), serum 23 U/L 12-78 aspartate aminotransferase (SGOT), serum 17 U/L 15-37 calcium, serum 9.5 mg/dL 8.5-10.1 bilirubin, serum, total 0.70 mg/dL 0.00-1.00 Lab Report: HIV-1/2 Agn/Ritu/52145, Chlamydia/GC APTIMA/41775 - Lab chlamydia DNA probe NOT DETECTED NOT DETECTED Lab Report: HIV-1/2 Agn/Ritu/71493, Chlamydia/GC APTIMA/93717 - Microbiology Neisseria gonorrhoeae DNA probe NOT DETECTED NOT DETECTED Lab Report: TONY INFLUENZA A/B - Toxicology rapid flu test Negative Negative;Positive Lab Report: [facility] [place] Chemistry human chorionic gonadotropin, urine, qualitative (urine test) Negative Negative Office Visit: wellness exam for insurance/ diabetes check - Chemistry cholesterol, target level 200 mg/dL LDL target level 100 mg/dL HDL cholesterol, serum, target level 40 mg/dL triglyceride, target level 150 mg/dL Encounters Code Encounter Date Provider Facility CPT-65462 Level 3 Est. Patient 17:03:54 CDT Carlos Mccormack MD [facility] CPT-39189 Level 3 Est. Patient 20:15:16 CDT Ian Valdez MD [facility] CPT-37962 Level 3 Est. Patient 13:49:34 CDT Ian Valdez MD [facility] CPT-75296 Level 3 Est. Patient 15:50:27 TOUR BUS DRIVER Najma Vaughn APRN [facility] CPT-07223 Level 4 Est. Patient 21:20:00 TOUR BUS DRIVER Ian Valdez MD [facility] CPT-37994 Level 3 Est. Patient 15:32:41 TOUR BUS DRIVER Juan Smith MD [facility] CPT-26795 Level 3 Est. Patient 14:45:01 CDT Eva Ferrara MD PhD [facility] CPT-10167 Level 3 Est. Patient 14:54:10 CDT Ian Valdez MD [facility] CPT-84972 Level 4 Est. Patient 20:36:52 CDT Ian Valdez MD [facility] CPT-35136 Level 4 Est. Patient 11:14:30 TOUR BUS DRIVER Ian Valdez MD [facility] CPT-44343 Level 3 Est. Patient 19:08:34 TOUR BUS DRIVER Ian Valdez MD [facility] CPT-71744 Level 3 Est. Patient 13:17:39 TOUR BUS DRIVER Ian Valdez MD [facility] CPT-07368 Level 4 Est. Patient 18:56:10 CDT Ian Valdez MD [facility] CPT-17629 Level 4 Est. Patient 16:55:56 CDT Ian Valdez MD [facility] CPT-56490 Level 3 Est. Patient 11:27:07 CDT Ian Valdez MD [facility] CPT-99026 Level 3 Est. Patient 15:17:44 CDT Law Rosas [facility] CPT-24619 Level 4 Est. Patient 15:13:53 CDT Wellington Muniz [facility] CPT-63190 Level 3 Est. Patient 14:25:12 TOUR BUS DRIVER Ian Valdez MD [facility] CPT-97482 Level 3 Est. Patient 10:24:46 CDT Ian Valdez MD [facility] CPT-54574 Level 3 Est. Patient 15:34:19 CDT Ian Valdez MD [facility] CPT-75153 Level 3 Est. Patient 14:22:41 CDT Ian Valdez MD [facility] CPT-14445 Level 3 Est. Patient 15:07:22 TOUR BUS DRIVER Ian Valdez MD [facility] CPT-07194 Level 3 New Patient 09:06:43 TOUR BUS DRIVER Ian Valdez MD [facility] CPT-31753 Level 3 Est. Patient 15:09:00 TOUR BUS DRIVER Ian Valdez MD [facility] Procedures Code Procedure Name Date Entry Date Standard Description CPT-J1050 Depo Provera 150 mg (Medroxyprogesterone) 15:27:21 CDT CPT-64282 Abx/Therapy Injection 15:27:21 CDT CPT-71115 Abd compl w upright 17:11:01 CDT CPT-OV Office Visit 16:24:22 CDT CPT-OV Office Visit 15:15:29 TOUR BUS DRIVER CPT-OV Office Visit 15:49:26 TOUR BUS DRIVER CPT-J1885 Toradol 60 mg (Ketorolac) 15:37:32 CDT CPT-59668 Abx/Therapy Injection 15:37:32 CDT CPT-J1885 Toradol 60 mg (Ketorolac) 14:45:01 CDT CPT-OV Office Visit 15:19:52 CDT CPT-OV Office Visit 10:41:01 CDT CPT-83342 Core biop breast wo imaging 16:50:06 CDT CPT-OV Office Visit 16:50:05 CDT CPT-54148 UHCG (floor use only) 13:39:36 CDT CPT-61696 Nexplanon Placement 10:11:48 CDT CPT-J7307 Nexplanon (Implant) 10:11:48 CDT CPT-OV Office Visit 09:54:18 CDT CPT-41930 EKG Trac and Interp 16:50:19 CDT CPT-51522 Venipuncture Draw Fee 15:06:08 CDT CPT-J2930 Solu Medrol 125 mg (Methyl Prednisolone Sodium Succinate) 12:44:46 CDT CPT-J1055 Depo Provera 150 mg (Medroxyprogesterone) 12:44:46 CDT CPT-71852 Abx/Therapy Injection 12:44:46 CDT CPT-J1055 Depo Provera 150 mg (Medroxyprogesterone) 14:28:41 CDT CPT-J2930 Solu Medrol 125 mg (Methyl Prednisolone Sodium Succinate) 14:22:41 CDT CPT-10716 Administration single or combination vaccine inc oral 10 :08:06 CDT CPT-06286 Tdap 10:08:06 CDT CPT-G0402 Wlcm To Medicare Ex 22:17:30 CDT CPT-78484 Venipuncture Draw Fee 10:33:07 TOUR BUS DRIVER CPT-03495 Venipuncture Draw Fee 10:17:37 TOUR BUS DRIVER CPT-G0403 EKG Wlc To Medicare 22:17:30 CDT
--- OUTSIDE RECORDS SUMMARY | 2018-07-17 21:13 | XMS REPORT | Clinical Summary ---
Author Author Admin, ARIAN Organization [facility] Address Unknown Phone Unavailable Allergies, Adverse [...] po BID PRN Constipation 10/07 MAGNESIUM CITRATE [id number] Active Carlos Mccormack MD Active DICLOFENAC SODIUM 50 MG ORAL TBEC TID PRN DICLOFENAC SODIUM 62252494393 Active Ian Valdez MD Active BUSPIRONE HCL 7.5 MG ORAL TABS 1 TAB PO BID PRN ANXIETY BUSPIRONE HCL 43711384538 Active Herminia Bear Active MEDROL (REBEKAH) 4 MG TABS 6 tabs on day 1, 5 tabs on day 2, 4 tabs on day 3, 3 tabs on day 4, 2 tabs on day 5, 1 tab on day 6 METHYLPREDNISOLONE 70728028534 No Longer Active Herminia Chema Active MELOXICAM 15 MG TABS 1 po q day for pain with food MELOXICAM 40333882370 Active Ian Valdez MD Active DOXYCYCLINE HYCLATE 100 MG CAP 1 cap by mouth twice daily DOXYCYCLINE HYCLATE 42952947175 No Longer Active Najam Vaughn MANAGER GIFT Active MULTIVITAMINS CAPS 1 tablet daily MULTIPLE VITAMIN 42993100518 Active Juan Smith MD Active CYCLOBENZAPRINE HCL 10 MG TABS 1/2 - 1 tab by mouth three times daily if needed for spasms/pain CYCLOBENZAPRINE HCL 51291760238 Active Ian Valdez MD Active GLUCOPHAGE 500 MG TABS 1 tab BID with morning and night meals METFORMIN HCL 17689832450 Active Eva Ferrara MD PhD Active PROGESTERONE MICRONIZED 100 MG CAPS 2 caps daily day 16 thru 25 of cycle 2013 PROGESTERONE MICRONIZED 80560563030 Active Eva Ferrara MD PhD Active TERBINAFINE HCL 1 % CREA Apply bid to rash TERBINAFINE HCL 78880628898 No Longer Active Eva Ferrara MD PhD Active TOPAMAX 25 MG TABS 1 tab po qhs x 1 week, then take 2 tabs po qhs TOPIRAMATE 74595922175 No Longer Active Thom Gilbert MD Active ULTRAM 50 MG TAB take 1 tab po q6hrs prn pain TRAMADOL HCL 29520078473 Active Ian Valdez MD Active LAMISIL AT 1 % CREA apply bid to rash TERBINAFINE HCL 57565051196 No Longer Active Thom Gilbert MD Active TERBINAFINE HCL 250 MG TABS 1 qDay TERBINAFINE HCL 59768284514 No Longer Active Ian Valdez MD Active XANAX 0.25 MG TABS take 1 tab po bid prn anxiety. ALPRAZOLAM 18161317332 No Longer Active Ian Valdez MD Active FISH OIL 1000 MG CAPS 2 caps PO once daily at bedtime OMEGA-3 FATTY ACIDS 39425393667 No Longer Active Ian Valdez MD Active KLOR-CON M20 20 MEQ CR-TABS take 1 tab po qday with lasix POTASSIUM CHLORIDE GALILEO CR 33051755205 Active Ian Valdez MD Active LASIX 20 MG TAB 1 tablet by mouth daily prn swelling FUROSEMIDE 87955444683 Active Ian Valdez MD Active FLONASE 50 MCG/ACT SUSP 2 puffs in each nostril once daily at bedtime FLUTICASONE PROPIONATE 47355576413 Active Ian Valdez MD Active [facility] MELATONIN 3 MG TABS 2 tabs PO at bedtime MELATONIN 18049797530 Active Ian Valdez MD Active PULMICORT FLEXHALER 180 MCG/ACT AEPB 2 INH BID BUDESONIDE 23480666336 No Longer Active Ian Valdez MD Active METFORMIN HCL 500 MG TB24 1 TAB PO Q HS METFORMIN HCL 72170934171 No Longer Active Ian Valdez MD Active CYCLOBENZAPRINE HCL 10 MG TABS 1 PO q 8 hrs PRN muscle spasm 2012 CYCLOBENZAPRINE HCL 43750467480 No Longer Active Ian Valdez MD Active AZITHROMYCIN 500 MG TABS 1 PO q day x 6 days AZITHROMYCIN 75526966825 No Longer Active Ian Valdez MD Active CIPRO 500 MG TAB 1 tablet by mouth twice daily CIPROFLOXACIN HCL 40882443771 No Longer Active Ian Valdez MD Active PREDNISONE 20 MG TABS 3 qd x 2d, 2 qd x 2d, 1 qd x 2d, 1/2 qd x 2d PREDNISONE 77026322598 No Longer Active Law FIGUEROA Active CELEXA 40 MG TABS 2 PO DAILY CITALOPRAM HYDROBROMIDE 49611514347 Active Ian Valdez MD Active OMEPRAZOLE 20 MG CPDR 1 tablet by mouth daily OMEPRAZOLE 61141572090 No Longer Active [place] FIGUEROA Active KLONOPIN 0.5 MG TABS 1 TABLET PO PRN CLONAZEPAM 58626996958 No Longer Active [place] FIGUEROA Active MOBIC 7.5 MG TABS 1 tablet by mouthonce a day MELOXICAM 68509601151 No Longer Active [place] FIGUEROA Active ZITHROMAX 1 GM PACK DIRECTED AZITHROMYCIN 97562825390 No Longer Active Ian Valdez MD Active ALBUTEROL SULFATE 0.083 % NEBU SOLN one vial per nebulizer every 4-6 hours as needed ALBUTEROL SULFATE 90681167364 Active Ian Valdez MD Active CHANTIX STARTING MONTH REBEKAH 0.5 MG X 11 & 1 MG X 42 TABS 0.5mg daily for 3 days , then 0.5mg BID for 4 days, then 1mg BID VARENICLINE TARTRATE 64563594761 No Longer Active Ina Valdez MD Active ZITHROMAX 1 GM PACK DIRECTED AZITHROMYCIN 79947048948 No Longer Active Ian Valdez MD Active AURALGAN 1.4-5.5 % SOLN BENZOCAINE-ANTIPYRINE 13877335831 No Longer Active Ian Valdez MD Active PREDNISONE 20 MG TAB 3 tabs daily for 3 days, 2 tab daily for 3 days, 1 tab daily for 2 days, then 1/2 tab dialy for 2 days PREDNISONE 89811083556 No Longer Active Ian Valdez MD Active SIMVASTATIN 40 MG TABS 1 TABLET PO Q HS SIMVASTATIN 39934341539 Active Ian Valdez MD Active SIMVASTATIN 80 MG TABS Take one by mouth daily SIMVASTATIN 25723218751 No Longer Active Ian Valdez MD Active PREDNISONE 20 MG TAB 2 tabs daily for 3 days, 1 tab daily for 3 days, 1/2 tab daily for 2 days PREDNISONE 23538609898 No Longer Active Ian Valdez MD Active ZITHROMAX 250 MG TAB 2 po today, then 1 po q days 2-5 AZITHROMYCIN 72732004331 No Longer Active Ian Valdez MD Active TRAZODONE HCL 100 MG TABS 2 TABS PO Q HS TRAZODONE HCL 03462963775 Active Ian Valdez MD Active ZITHROMAX 250 MG TAB 2 po today, then 1 po q days 2-5 AZITHROMYCIN 84437328612 No Longer Active Ian Valdez MD Active SIMVASTATIN 80 MG TABS Take one by mouth daily SIMVASTATIN 80 MG TABS 589988 SIMVASTATIN Inactive AURALGAN 1.4-5.5 % SOLN AURALGAN 1.4-5.5 % SOLN BENZOCAINE-ANTIPYRINE Inactive ZITHROMAX 1 GM PACK DIRECTED ZITHROMAX 1 GM PACK 519320 AZITHROMYCIN Inactive CHANTIX STARTING MONTH REBEKAH 0.5 MG X 11 & 1 MG X 42 TABS 0.5mg daily for 3 days , then 0.5mg BID for 4 days, then 1mg BID CHANTIX STARTING MONTH REBEKAH 0.5 MG X 11 & 1 MG X 42 TABS VARENICLINE TARTRATE Inactive ZITHROMAX 1 GM PACK DIRECTED ZITHROMAX 1 GM PACK 551840 AZITHROMYCIN Inactive MOBIC 7.5 MG TABS 1 tablet by mouthonce a day MOBIC 7.5 MG TABS 498169 MELOXICAM Inactive KLONOPIN 0.5 MG TABS 1 TABLET PO PRN KLONOPIN 0.5 MG TABS 393683 CLONAZEPAM Inactive CIPRO 500 MG TAB 1 tablet by mouth twice daily CIPRO 500 MG TAB 232227 CIPROFLOXACIN HCL Inactive AZITHROMYCIN 500 MG TABS 1 PO q day x 6 days AZITHROMYCIN 500 MG TABS 9901717 AZITHROMYCIN Inactive CYCLOBENZAPRINE HCL 10 MG TABS 1 PO q 8 hrs PRN muscle spasm 2012 CYCLOBENZAPRINE HCL 10 MG TABS 414109 CYCLOBENZAPRINE HCL Inactive METFORMIN HCL 500 MG [...] bid prn anxiety. XANAX 0.25 MG TABS 934435 ALPRAZOLAM Inactive LAMISIL AT 1 % CREA apply bid to rash LAMISIL AT 1 % CREA 698341 TERBINAFINE HCL Inactive TOPAMAX 25 MG TABS 1 tab po qhs x 1 week, then take 2 tabs po qhs TOPAMAX 25 MG TABS 559326 TOPIRAMATE Inactive TERBINAFINE HCL 1 % CREA Apply bid to rash TERBINAFINE HCL 1 % CREA 349301 TERBINAFINE HCL Inactive ZITHROMAX 250 MG TAB 2 po today, then 1 po q days 2-5 ZITHROMAX 250 MG TAB 7349933 AZITHROMYCIN Inactive ZITHROMAX 250 MG TAB 2 po today, then 1 po q days 2-5 ZITHROMAX 250 MG TAB 1722488 AZITHROMYCIN Inactive PREDNISONE 20 MG TAB 2 tabs daily for 3 days, 1 tab daily for 3 days, 1/2 tab daily for 2 days PREDNISONE 20 MG TAB 745427 PREDNISONE Inactive PREDNISONE 20 MG TAB 3 tabs daily for 3 days, 2 tab daily for 3 days, 1 tab daily for 2 days, then 1/2 tab dialy for 2 days PREDNISONE 20 MG TAB 137763 PREDNISONE Inactive OMEPRAZOLE 20 MG CPDR 1 tablet by mouth daily OMEPRAZOLE 20 MG CPDR 201945 OMEPRAZOLE Inactive PREDNISONE 20 MG TABS 3 qd x 2d, 2 qd x 2d, 1 qd x 2d, 1/2 qd x 2d PREDNISONE 20 MG TABS 813196 PREDNISONE Inactive TERBINAFINE HCL 250 MG TABS 1 qDay TERBINAFINE HCL 250 MG TABS 569077 TERBINAFINE HCL Inactive DOXYCYCLINE HYCLATE 100 MG CAP 1 cap by mouth twice daily DOXYCYCLINE HYCLATE 100 MG CAP 9341184 DOXYCYCLINE HYCLATE Inactive MEDROL (REBEKAH) 4 MG [...] and acellular pertussis vaccine, adsorbed), booster Boostrix [UCF002] tetanus toxoid, reduced diphtheria toxoid, and acellular [...] 1.44 m[iU]/mL 0.36-3.74 cholesterol, serum 144 mg/dL 569-652 0221/11/19 triglyceride, serum, fasting 172 mg/dL 30-200 HDL cholesterol, serum 30 mg/dL 32-96 LDL cholesterol, serum 80 mg/dL 0-130 sodium, serum 137 mmol/L 368-034 1346/11/19 potassium, serum 4.1 mmol/L 3.5-5.2 chloride, serum 100 mmol/L 98-107 carbon dioxide, venous blood 26.9 mmol/L 21.0-32.0 blood glucose 84 mg/dL 65-110 urea nitrogen, blood 11 mg/dL 7-18 creatinine, serum 0.90 mg/dL 0.60-1.30 alanine aminotransferase (SGPT), serum 23 U/L 12-78 aspartate aminotransferase (SGOT), serum 17 U/L 15-37 calcium, serum 9.5 mg/dL 8.5-10.1 bilirubin, serum, total 0.70 mg/dL 0.00-1.00 Lab Report: HIV-1/2 Agn/Ritu/[id number], Chlamydia/GC APTIMA/22144 - Lab chlamydia DNA probe NOT DETECTED NOT DETECTED Lab Report: HIV-1/2 Agn/Ritu/97173, Chlamydia/GC APTIMA/19882 - Microbiology Neisseria gonorrhoeae DNA probe NOT DETECTED NOT DETECTED Lab Report: TONY INFLUENZA A/B - Toxicology rapid flu test Negative Negative;Positive Lab Report: [facility] [place] - Chemistry human chorionic gonadotropin, urine, qualitative (urine test) Negative Negative Office Visit: wellness exam for insurance/ diabetes check - Chemistry cholesterol, target level 200 mg/dL LDL target level 100 mg/dL HDL cholesterol, serum, target level 40 mg/dL triglyceride, target level 150 mg/dL Encounters Code Encounter Date Provider Facility CPT-11959 Level 3 Est. Patient 17:03:54 CDT Carlos Mccormack MD [facility] CPT-74894 Level 3 Est. Patient 20:15:16 CDT Ian Valdez MD [facility] CPT-23703 Level 3 Est. Patient 13:49:34 CDT Ian Valdez MD [facility] CPT-31692 Level 3 Est. Patient 15:50:27 ADMINISTRATIVE OPERATIONS COORDINATOR Najma Vaughn APRN [facility] CPT-78389 Level 4 Est. Patient 21:20:00 ADMINISTRATIVE OPERATIONS COORDINATOR Ian Valdez MD [facility] CPT-61506 Level 3 Est. Patient 15:32:41 ADMINISTRATIVE OPERATIONS COORDINATOR Juan Smith MD [facility] CPT-55052 Level 3 Est. Patient 14:45:01 CDT Eva Ferrara MD PhD [facility] CPT-26725 Level 3 Est. Patient 14:54:10 CDT Ian Valdez MD [facility] CPT-54478 Level 4 Est. Patient 20:36:52 CDT Ian Valdez MD [facility] CPT-58628 Level 4 Est. Patient 11:14:30 ADMINISTRATIVE OPERATIONS COORDINATOR Ian Valdez MD [facility] CPT-55609 Level 3 Est. Patient 19:08:34 ADMINISTRATIVE OPERATIONS COORDINATOR Ian Valdez MD [facility] CPT-30269 Level 3 Est. Patient 13:17:39 ADMINISTRATIVE OPERATIONS COORDINATOR Ian Valdez MD [facility] CPT-23920 Level 4 Est. Patient 18:56:10 CDT Ian Valdez MD [facility] CPT-63352 Level 4 Est. Patient 16:55:56 CDT Ian Valdez MD [facility] CPT-13526 Level 3 Est. Patient 11:27:07 CDT Ian Valdez MD [facility] CPT-22672 Level 3 Est. Patient 15:17:44 CDT [facility] CPT-99370 Level 4 Est. Patient 15:13:53 CDT [place] [facility] CPT-18862 Level 3 Est. Patient 14:25:12 ADMINISTRATIVE OPERATIONS COORDINATOR Ian Valdez MD [facility] CPT-30194 Level 3 Est. Patient 10:24:46 CDT Ian Valdez MD [facility] CPT-53931 Level 3 Est. Patient 15:34:19 CDT Ian Valdez MD [facility] CPT-35682 Level 3 Est. Patient 14:22:41 CDT Ian Valdez MD [facility] CPT-85925 Level 3 Est. Patient 15:07:22 ADMINISTRATIVE OPERATIONS COORDINATOR Ian Valdez MD [facility] CPT-45210 Level 3 New Patient 09:06:43 ADMINISTRATIVE OPERATIONS COORDINATOR Ian Valdez MD [facility] CPT-26646 Level 3 Est. Patient 15:09:00 ADMINISTRATIVE OPERATIONS COORDINATOR Ian Valdez MD [facility] Procedures Code Procedure Name Date Entry Date Standard Description CPT-J1050 Depo Provera 150 mg (Medroxyprogesterone) 15:27:21 CDT CPT-90726 Abx/Therapy Injection 15:27:21 CDT CPT-70797 Abd compl w upright 17:11:01 CDT CPT-OV Office Visit 16:24:22 CDT CPT-OV Office Visit 15:15:29 ADMINISTRATIVE OPERATIONS COORDINATOR CPT-OV Office Visit 15:49:26 ADMINISTRATIVE OPERATIONS COORDINATOR CPT-J1885 Toradol 60 mg (Ketorolac) 15:37:32 CDT CPT-34037 Abx/Therapy Injection 15:37:32 CDT CPT-J1885 Toradol 60 mg (Ketorolac) 14:45:01 CDT CPT-OV Office Visit 15:19:52 CDT CPT-OV Office Visit 10:41:01 CDT CPT-01219 Core biop breast wo imaging 16:50:06 CDT CPT-OV Office Visit 16:50:05 CDT CPT-06315 UHCG (floor use only) 13:39:36 CDT CPT-63843 Nexplanon Placement 10:11:48 CDT CPT-J7307 Nexplanon (Implant) 10:11:48 CDT CPT-OV Office Visit 09:54:18 CDT CPT-68052 EKG Trac and Interp 16:50:19 CDT CPT-30199 Venipuncture Draw Fee 15:06:08 CDT CPT-J2930 Solu Medrol 125 mg (Methyl Prednisolone Sodium Succinate) 12:44:46 CDT CPT-J1055 Depo Provera 150 mg (Medroxyprogesterone) 12:44:46 CDT CPT-87274 Abx/Therapy Injection 12:44:46 CDT CPT-J1055 Depo Provera 150 mg (Medroxyprogesterone) 14:28:41 CDT CPT-J2930 Solu Medrol 125 mg (Methyl Prednisolone Sodium Succinate) 14:22:41 CDT CPT-36116 Administration single or combination vaccine inc oral 10 :08:06 CDT CPT-23509 Tdap 10:08:06 CDT CPT-G0402 Wlcm To Medicare Ex 22:17:30 CDT CPT-07008 Venipuncture Draw Fee 10:33:07 ADMINISTRATIVE OPERATIONS COORDINATOR CPT-20155 Venipuncture Draw Fee 10:17:37 ADMINISTRATIVE OPERATIONS COORDINATOR CPT-G0403 EKG Wlc To Medicare 22:17:30 CDT
--- OUTSIDE RECORDS SUMMARY | 2018-07-17 21:15 | XMS REPORT | Clinical Summary ---
Author Author Admin, ARIAN Organization [facility] Address Unknown Phone Unavailable [...] PO q 8 hrs PRN pain OXYCODONE-ACETAMINOPHEN [id number] Active Law FIGUEROA Active MINOCYCLINE HCL 100 MG CAP 1 TAB PO DAILY MINOCYCLINE HCL 83970604837 Active Herminia Bear Active BENZACLIN 1-5 % EXT GEL apply to face BID for acne. CLINDAMYCIN PHOS-BENZOYL PEROX 12758486647 No Longer Active Herminia Bear Active HYDROCODONE-ACETAMINOPHEN 5-325 MG TABS 1-2 tabs by mouth every 4- 6 hours as needed HYDROCODONE-ACETAMINOPHEN 11357143820 Active Ian Valdez MD Active CLINDAMYCIN HCL 150 MG CAPS Take 2 capsules by mouth every 8hrs for 10 days CLINDAMYCIN HCL 80103304097 Active Ian Valdez MD Active DICLOFENAC SODIUM 50 MG TBEC 1 tablet by mouth three times daily as needed DICLOFENAC SODIUM 68470556537 Active Addis William [employer]IRE Active MAGNESIUM CITRATE 1.745 GM/30ML ORAL SOLN 150ml po BID PRN Constipation 10/07 MAGNESIUM CITRATE 59562347369 Active Ian Valdez MD Active BUSPIRONE HCL 7.5 MG ORAL TABS 1 TAB PO BID PRN ANXIETY BUSPIRONE HCL 89720781512 Active Ian Valdez MD Active MEDROL (REBEKAH) 4 MG TABS 6 tabs on day 1, 5 tabs on day 2, 4 tabs on day 3, 3 tabs on day 4, 2 tabs on day 5, 1 tab on day 6 METHYLPREDNISOLONE 72944360469 No Longer Active Herminia Bear Active MELOXICAM 15 MG TABS 1 po q day for pain with food MELOXICAM 81330160638 Active Ian Valdez MD Active DOXYCYCLINE HYCLATE 100 MG CAP 1 cap by mouth twice daily DOXYCYCLINE HYCLATE 46486475328 No Longer Active Najma Vaughn APRN Active MULTIVITAMINS CAPS 1 tablet daily MULTIPLE VITAMIN 75799672604 Active Juan Smith MD Active CYCLOBENZAPRINE HCL 10 MG TABS 1/2 - 1 tab by mouth three times daily if needed for spasms/pain CYCLOBENZAPRINE HCL 56537730587 Active Addis William APRN Active GLUCOPHAGE 500 MG TABS 1 tab BID with morning and night meals METFORMIN HCL 93635014188 Active Eva Ferrara MD PhD Active PROGESTERONE MICRONIZED 100 MG CAPS 2 caps daily day 16 thru 25 of cycle 2013 PROGESTERONE MICRONIZED 07464761838 Active Eva Ferrara MD PhD Active TERBINAFINE HCL 1 % CREA Apply bid to rash TERBINAFINE HCL 39692907825 No Longer Active Eva Ferrara MD PhD Active TOPAMAX 25 MG TABS 1 tab po qhs x 1 week, then take 2 tabs po qhs TOPIRAMATE 09418985517 No Longer Active Thom Gilbert MD Active ULTRAM 50 MG TAB take 1 tab po q6hrs prn pain TRAMADOL HCL 48225018221 Active Addis William APRN Active LAMISIL AT 1 % CREA apply bid to rash TERBINAFINE HCL 84451236161 No Longer Active Thom Gilbert MD Active TERBINAFINE HCL 250 MG TABS 1 qDay TERBINAFINE HCL 17517534617 No Longer Active Ian Valdez MD Active XANAX 0.25 MG TABS take 1 tab po bid prn anxiety. ALPRAZOLAM 60702012467 No Longer Active Ian Valdez MD Active FISH OIL 1000 MG CAPS 2 caps PO once daily at bedtime OMEGA-3 FATTY ACIDS 25037427913 No Longer Active Ian Valdez MD Active KLOR-CON M20 20 MEQ CR-TABS take 1 tab po qday with lasix POTASSIUM CHLORIDE GALILEO CR 85794594079 Active Ian Valdez MD Active LASIX 20 MG TAB 1 tablet by mouth daily prn swelling FUROSEMIDE 21829808113 Active Ian Valdez MD Active FLONASE 50 MCG/ACT SUSP 2 puffs in each nostril once daily at bedtime FLUTICASONE PROPIONATE 25165143799 Active Ian Valdez MD Active [facility] MELATONIN 3 MG TABS 2 tabs PO at bedtime MELATONIN 18797861734 Active Ian Valdez MD Active PULMICORT FLEXHALER 180 MCG/ACT AEPB 2 INH BID BUDESONIDE 78820271948 No Longer Active Ian Valdez MD Active METFORMIN HCL 500 MG TB24 1 TAB PO Q HS METFORMIN HCL 87454247692 No Longer Active Ian Valdez MD Active CYCLOBENZAPRINE HCL 10 MG TABS 1 PO q 8 hrs PRN muscle spasm 2012 CYCLOBENZAPRINE HCL 79818138702 No Longer Active Ian Valdez MD Active AZITHROMYCIN 500 MG TABS 1 PO q day x 6 days AZITHROMYCIN 16960475250 No Longer Active Ian Valdez MD Active CIPRO 500 MG TAB 1 tablet by mouth twice daily CIPROFLOXACIN HCL 26105125655 No Longer Active Ian Valdez MD Active PREDNISONE 20 MG TABS 3 qd x 2d, 2 qd x 2d, 1 qd x 2d, 1/2 qd x 2d PREDNISONE 76862292205 No Longer Active Law FIGUEROA Active CELEXA 40 MG TABS 2 PO DAILY CITALOPRAM HYDROBROMIDE 52746153266 Active Ian Valdez MD Active OMEPRAZOLE 20 MG CPDR 1 tablet by mouth daily OMEPRAZOLE 02746357179 No Longer Active [place] FIGUEROA Active KLONOPIN 0.5 MG TABS 1 TABLET PO PRN CLONAZEPAM 11323630827 No Longer Active [place] FIGUEROA Active MOBIC 7.5 MG TABS 1 tablet by mouthonce a day MELOXICAM 95572868157 No Longer Active [place] FIGUEROA Active ZITHROMAX 1 GM PACK DIRECTED AZITHROMYCIN 38298429333 No Longer Active Ian Valdez MD Active ALBUTEROL SULFATE 0.083 % NEBU SOLN one vial per nebulizer every 4-6 hours as needed ALBUTEROL SULFATE 28990907417 Active Ian Valdez MD Active CHANTIX STARTING MONTH REBEKAH 0.5 MG X 11 & 1 MG X 42 TABS 0.5mg daily for 3 days , then 0.5mg BID for 4 days, then 1mg BID VARENICLINE TARTRATE 99918097060 No Longer Active Ian Valdez MD Active ZITHROMAX 1 GM PACK DIRECTED AZITHROMYCIN 78924270940 No Longer Active Ian Valdez MD Active AURALGAN 1.4-5.5 % SOLN BENZOCAINE-ANTIPYRINE 17112824882 No Longer Active Ian Valdez MD Active PREDNISONE 20 MG TAB 3 tabs daily for 3 days, 2 tab daily for 3 days, 1 tab daily for 2 days, then 1/2 tab dialy for 2 days PREDNISONE 48987573952 No Longer Active Ian Valdez MD Active SIMVASTATIN 40 MG TABS 1 TABLET PO Q HS SIMVASTATIN 12517993276 Active Ian Valdez MD Active SIMVASTATIN 80 MG TABS Take one by mouth daily SIMVASTATIN 17107447155 No Longer Active Ian Valdez MD Active PREDNISONE 20 MG TAB 2 tabs daily for 3 days, 1 tab daily for 3 days, 1/2 tab daily for 2 days PREDNISONE 48336990002 No Longer Active Ian Valdez MD Active ZITHROMAX 250 MG TAB 2 po today, then 1 po q days 2-5 AZITHROMYCIN 63061996531 No Longer Active Ian Valdez MD Active TRAZODONE HCL 100 MG TABS 2 TABS PO Q HS TRAZODONE HCL 50935600241 Active Addis William APRN Active ZITHROMAX 250 MG TAB 2 po today, then 1 po q days 2-5 AZITHROMYCIN 75331357473 No Longer Active Ian Valdez MD Active SIMVASTATIN 80 MG TABS Take one by mouth daily SIMVASTATIN 80 MG TABS 840921 SIMVASTATIN Inactive AURALGAN 1.4-5.5 % SOLN AURALGAN 1.4-5.5 % SOLN BENZOCAINE-ANTIPYRINE Inactive ZITHROMAX 1 GM PACK DIRECTED ZITHROMAX 1 GM PACK 894448 AZITHROMYCIN Inactive CHANTIX STARTING MONTH REBEKAH 0.5 MG X 11 & 1 MG X 42 TABS 0.5mg daily for 3 days , then 0.5mg BID for 4 days, then 1mg BID CHANTIX STARTING MONTH REBEKAH 0.5 MG X 11 & 1 MG X 42 TABS VARENICLINE TARTRATE Inactive ZITHROMAX 1 GM PACK DIRECTED ZITHROMAX 1 GM PACK 851574 AZITHROMYCIN Inactive MOBIC 7.5 MG TABS 1 tablet by mouthonce a day MOBIC 7.5 MG TABS 088373 MELOXICAM Inactive KLONOPIN 0.5 MG TABS 1 TABLET PO PRN KLONOPIN 0.5 MG TABS 106600 CLONAZEPAM Inactive CIPRO 500 MG TAB 1 tablet by mouth twice daily CIPRO 500 MG TAB 290672 CIPROFLOXACIN HCL Inactive AZITHROMYCIN 500 MG TABS 1 PO q day x 6 days AZITHROMYCIN 500 MG TABS 8467468 AZITHROMYCIN Inactive CYCLOBENZAPRINE HCL 10 MG TABS 1 PO q 8 hrs PRN muscle spasm 2012 CYCLOBENZAPRINE HCL 10 MG TABS 302459 CYCLOBENZAPRINE HCL Inactive METFORMIN HCL 500 MG [...] bid prn anxiety. XANAX 0.25 MG TABS 655709 ALPRAZOLAM Inactive LAMISIL AT 1 % CREA apply bid to rash LAMISIL AT 1 % CREA 025522 TERBINAFINE HCL Inactive TOPAMAX 25 MG TABS 1 tab po qhs x 1 week, then take 2 tabs po qhs TOPAMAX 25 MG TABS 295291 TOPIRAMATE Inactive TERBINAFINE HCL 1 % CREA Apply bid to rash TERBINAFINE HCL 1 % CREA 651886 TERBINAFINE HCL Inactive BENZACLIN 1-5 % EXT GEL apply to face BID for acne. BENZACLIN 1-5 % EXT GEL 641748 CLINDAMYCIN PHOS-BENZOYL PEROX Inactive ZITHROMAX 250 MG TAB 2 po today, then 1 po q days 2-5 ZITHROMAX 250 MG TAB 6136581 AZITHROMYCIN Inactive ZITHROMAX 250 MG TAB 2 po today, then 1 po q days 2-5 ZITHROMAX 250 MG TAB 1864759 AZITHROMYCIN Inactive PREDNISONE 20 MG TAB 2 tabs daily for 3 days, 1 tab daily for 3 days, 1/2 tab daily for 2 days PREDNISONE 20 MG TAB 432990 PREDNISONE Inactive PREDNISONE 20 MG TAB 3 tabs daily for 3 days, 2 tab daily for 3 days, 1 tab daily for 2 days, then 1/2 tab dialy for 2 days PREDNISONE 20 MG TAB 148300 PREDNISONE Inactive OMEPRAZOLE 20 MG CPDR 1 tablet by mouth daily OMEPRAZOLE 20 MG CPDR 354605 OMEPRAZOLE Inactive PREDNISONE 20 MG TABS 3 qd x 2d, 2 qd x 2d, 1 qd x 2d, 1/2 qd x 2d PREDNISONE 20 MG TABS 588597 PREDNISONE Inactive TERBINAFINE HCL 250 MG TABS 1 qDay TERBINAFINE HCL 250 MG TABS 998636 TERBINAFINE HCL Inactive DOXYCYCLINE HYCLATE 100 MG CAP 1 cap by mouth twice daily DOXYCYCLINE HYCLATE 100 MG CAP 7774636 DOXYCYCLINE HYCLATE Inactive MEDROL (REBEKAH) 4 MG [...] and acellular pertussis vaccine, adsorbed), booster Boostrix [URB204] tetanus toxoid, reduced diphtheria toxoid, and acellular [...] MICROALBUMIN - Chemistry sodium, serum 141 mmol/L 815-787 1410/10/27 potassium, serum 4.5 mmol/L 3.5-5.2 chloride, serum [...] surface antigen NON-REACTIVE NON-REACTIVE Lab Report: HIV-1/2 Agn/Ritu/41153, Chlamydia/GC APTIMA/58105 - Lab chlamydia DNA probe NOT DETECTED NOT DETECTED Lab Report: HIV-1/2 Agn/Ritu/17106, Chlamydia/GC APTIMA/44054 - Microbiology Neisseria gonorrhoeae DNA probe NOT DETECTED NOT DETECTED [place] [facility] [place] human chorionic gonadotropin, urine, qualitative (urine test) Negative Negative Office Visit: Med Check / Labs - Chemistry cholesterol, target level 200 mg/dL LDL target level 100 mg/dL HDL cholesterol, serum, target level 40 mg/dL triglyceride, target level 150 mg/dL Encounters Code Encounter Date Provider Facility CPT-61627 Level 3 Est. Patient 11:15:53 SYSTEM SOFTWARE PROGRAMMER Ian Valdez MD [facility] CPT-18877 Level 3 Est. Patient 15:20:49 SYSTEM SOFTWARE PROGRAMMER Law FIGUEROA [facility] CPT-01144 Level 4 Est. Patient 22:41:22 CDT Ian Valdez MD [facility] CPT-76830 Level 3 Est. Patient 17:03:54 CDT Carlos Mccormack MD [facility] CPT-14741 Level 3 Est. Patient 20:15:16 CDT Ian Valdez MD [facility] CPT-11086 Level 3 Est. Patient 13:49:34 CDT Ian Valdez MD [facility] CPT-60680 Level 3 Est. Patient 15:50:27 SYSTEM SOFTWARE PROGRAMMER Najma Vaughn APRN [facility] CPT-76024 Level 4 Est. Patient 21:20:00 SYSTEM SOFTWARE PROGRAMMER Ian Valdez MD [facility] CPT-90323 Level 3 Est. Patient 15:32:41 SYSTEM SOFTWARE PROGRAMMER Juan Smith MD [facility] CPT-38673 Level 3 Est. Patient 14:45:01 CDT Eva Ferrara MD PhD [facility] CPT-29303 Level 3 Est. Patient 14:54:10 CDT Ian Valdez MD [facility] CPT-21891 Level 4 Est. Patient 20:36:52 CDT Ian Valdez MD [facility]-58412 Level 4 Est. Patient 11:14:30 SYSTEM SOFTWARE PROGRAMMER Ian Valdez MD [facility]-28207 Level 3 Est. Patient 19:08:34 SYSTEM SOFTWARE PROGRAMMER Ian Valdez MD [facility]-93938 Level 3 Est. Patient 13:17:39 SYSTEM SOFTWARE PROGRAMMER Ian Valdez MD [facility]-56036 Level 4 Est. Patient 18:56:10 CDT Ian Valdez MD [facility]-27512 Level 4 Est. Patient 16:55:56 CDT Ian Valdez MD [facility] CPT-85844 Level 3 Est. Patient 11:27:07 CDT Ian Valdez MD [facility] CPT-26809 Level 3 Est. Patient 15:17:44 CDT Law Rosas [facility] CPT-48540 Level 4 Est. Patient 15:13:53 CDT Wellington Muniz [facility] CPT-45281 Level 3 Est. Patient 14:25:12 SYSTEM SOFTWARE PROGRAMMER Ian Valdez MD [facility]-70263 Level 3 Est. Patient 10:24:46 CDT Ian Valdez MD [facility]-93444 Level 3 Est. Patient 15:34:19 CDT Ian Valdez MD [facility]-18907 Level 3 Est. Patient 14:22:41 CDT Ian Valdez MD [facility]-43157 Level 3 Est. Patient 15:07:22 SYSTEM SOFTWARE PROGRAMMER Ian Valdez MD [facility] CPT-57750 Level 3 New Patient 09:06:43 SYSTEM SOFTWARE PROGRAMMER Ian Valdez MD [facility] CPT-57713 Level 3 Est. Patient 15:09:00 SYSTEM SOFTWARE PROGRAMMER Ian Valdez MD [facility] Procedures Code Procedure Name Date Entry Date Standard Description CPT-J2930 Solu Medrol 125 mg (Methyl Prednisolone Sodium Succinate) 09:17:43 SYSTEM SOFTWARE PROGRAMMER CPT-69062 Abx/Therapy Injection 09:17:43 SYSTEM SOFTWARE PROGRAMMER CPT-J2930 Solu Medrol 125 mg (Methyl Prednisolone Sodium Succinate) 13:19:04 SYSTEM SOFTWARE PROGRAMMER CPT-69800 Abx/Therapy Injection 13:19:04 SYSTEM SOFTWARE PROGRAMMER CPT-J2930 Solu Medrol 125 mg (Methyl Prednisolone Sodium Succinate) 11:15:53 SYSTEM SOFTWARE PROGRAMMER CPT-J1050 Depo Provera 150 mg (Medroxyprogesterone) 13:45:44 CDT CPT-02924 Abx/Therapy Injection 13:45:44 CDT CPT-J1050 Depo Provera 150 mg (Medroxyprogesterone) 15:27:21 CDT CPT-14350 Abx/Therapy Injection 15:27:21 CDT CPT-89019 Abd compl w upright 17:11:01 CDT CPT-OV Office Visit 16:24:22 CDT CPT-OV Office Visit 15:15:29 SYSTEM SOFTWARE PROGRAMMER CPT-OV Office Visit 15:49:26 SYSTEM SOFTWARE PROGRAMMER CPT-J1885 Toradol 60 mg (Ketorolac) 15:37:32 CDT CPT-83810 Abx/Therapy Injection 15:37:32 CDT CPT-J1885 Toradol 60 mg (Ketorolac) 14:45:01 CDT CPT-OV Office Visit 15:19:52 CDT CPT-OV Office Visit 10:41:01 CDT CPT-26705 Core biop breast wo imaging 16:50:06 CDT CPT-OV Office Visit 16:50:05 CDT CPT-56170 UHCG (floor use only) 13:39:36 CDT CPT-62079 Nexplanon Placement 10:11:48 CDT CPT-J7307 Nexplanon (Implant) 10:11:48 CDT CPT-OV Office Visit 09:54:18 CDT CPT-43767 EKG Trac and Interp 16:50:19 CDT CPT-06749 Venipuncture Draw Fee 15:06:08 CDT CPT-J2930 Solu Medrol 125 mg (Methyl Prednisolone Sodium Succinate) 12:44:46 CDT CPT-J1055 Depo Provera 150 mg (Medroxyprogesterone) 12:44:46 CDT CPT-33406 Abx/Therapy Injection 12:44:46 CDT CPT-J1055 Depo Provera 150 mg (Medroxyprogesterone) 14:28:41 CDT CPT-J2930 Solu Medrol 125 mg (Methyl Prednisolone Sodium Succinate) 14:22:41 CDT CPT-14608 Administration single or combination vaccine inc oral 10 :08:06 CDT CPT-35878 Tdap 10:08:06 CDT CPT-G0402 Wlcm To Medicare Ex 22:17:30 CDT CPT-84840 Venipuncture Draw Fee 10:33:07 SYSTEM SOFTWARE PROGRAMMER CPT-70589 Venipuncture Draw Fee 10:17:37 SYSTEM SOFTWARE PROGRAMMER CPT-G0403 EKG Wlc To Medicare 22:17:30 CDT
--- OUTSIDE RECORDS SUMMARY | 2018-07-17 21:16 | XMS REPORT | Clinical Summary ---
Author Author Admin, ARIAN Organization [facility] Address Unknown Phone Unavailable Allergies, Adverse [...] Generic Name NDC Status Provider Patient Instruction BUSPIRONE HCL 7.5 MG ORAL TABS 1 TAB PO BID PRN ANXIETY BUSPIRONE HCL 01807195588 Active Herminia Bear Active MEDROL (REBEKAH) 4 MG TABS 6 tabs on day 1, 5 tabs on day 2, 4 tabs on day 3, 3 tabs on day 4, 2 tabs on day 5, 1 tab on day 6 [facility] 65077310392 Active Herminia Bear Active MELOXICAM 15 MG TABS 1 po q day for pain with food MELOXICAM 24682940666 Active Ian Valdez MD Active DOXYCYCLINE HYCLATE 100 MG CAP 1 cap by mouth twice daily DOXYCYCLINE HYCLATE 27996137749 No Longer Active Najma Vaughn APRN Active MULTIVITAMINS CAPS 1 tablet daily MULTIPLE VITAMIN 61897296239 Active Juan Smith MD Active CYCLOBENZAPRINE HCL 10 MG TABS 1/2 - 1 tab by mouth three times daily if needed for spasms/pain CYCLOBENZAPRINE HCL 73211757130 Active Ian Valdez MD Active GLUCOPHAGE 500 MG TABS 1 tab BID with morning and night meals METFORMIN HCL 25665376623 Active Eva Ferrara MD PhD Active PROGESTERONE MICRONIZED 100 MG CAPS 2 caps daily day 16 thru 25 of cycle 2013 PROGESTERONE MICRONIZED 67093667986 Active Eva Ferrara MD PhD Active TERBINAFINE HCL 1 % CREA Apply bid to rash TERBINAFINE HCL 05010973158 No Longer Active Eva Ferrara MD PhD Active TOPAMAX 25 MG TABS 1 tab po qhs x 1 week, then take 2 tabs po qhs TOPIRAMATE 01368662866 No Longer Active Thom Gilbert MD Active ULTRAM 50 MG TAB take 1 tab po q6hrs prn pain TRAMADOL HCL 87998265514 Active Ian Valdez MD Active LAMISIL AT 1 % CREA apply bid to rash TERBINAFINE HCL 13698202640 No Longer Active Thom Gilbert MD Active TERBINAFINE HCL 250 MG TABS 1 qDay TERBINAFINE HCL 96158786788 No Longer Active Ian Valdez MD Active XANAX 0.25 MG TABS take 1 tab po bid prn anxiety. ALPRAZOLAM 12920593410 No Longer Active Ian Valdez MD Active FISH OIL 1000 MG CAPS 2 caps PO once daily at bedtime OMEGA-3 FATTY ACIDS 75976393963 No Longer Active Ian Valdez MD Active KLOR-CON M20 20 MEQ CR-TABS take 1 tab po qday with lasix POTASSIUM CHLORIDE GALILEO CR 74934706029 Active Ian Valdez MD Active LASIX 20 MG TAB 1 tablet by mouth daily prn swelling FUROSEMIDE 41967994287 Active Ian Valdez MD Active FLONASE 50 MCG/ACT SUSP 2 puffs in each nostril once daily at bedtime FLUTICASONE PROPIONATE 03885104383 Active Ian Valdez MD Active CVS MELATONIN 3 MG TABS 2 tabs PO at bedtime MELATONIN 52114613876 Active Ian Valdez MD Active PULMICORT FLEXHALER 180 MCG/ACT AEPB 2 INH BID BUDESONIDE 53394816997 No Longer Active Ian Valdez MD Active METFORMIN HCL 500 MG TB24 1 TAB PO Q HS METFORMIN HCL 65046069998 No Longer Active Ian Valdez MD Active CYCLOBENZAPRINE HCL 10 MG TABS 1 PO q 8 hrs PRN muscle spasm 2012 CYCLOBENZAPRINE HCL 52337197840 No Longer Active Ian Valdez MD Active AZITHROMYCIN 500 MG TABS 1 PO q day x 6 days AZITHROMYCIN 59239078256 No Longer Active Ian Valdez MD Active CIPRO 500 MG TAB 1 tablet by mouth twice daily CIPROFLOXACIN HCL 56755911662 No Longer Active Ian Valdez MD Active PREDNISONE 20 MG TABS 3 qd x 2d, 2 qd x 2d, 1 qd x 2d, 1/2 qd x 2d PREDNISONE 40208975551 No Longer Active Law FIGUEROA Active CELEXA 40 MG TABS 2 PO DAILY CITALOPRAM HYDROBROMIDE 22763593295 Active Ian Valdez MD Active OMEPRAZOLE 20 MG CPDR 1 tablet by mouth daily OMEPRAZOLE 24851260041 No Longer Active [place] FIGUEROA Active KLONOPIN 0.5 MG TABS 1 TABLET PO PRN CLONAZEPAM 09793069774 No Longer Active [place] FIGUEROA Active MOBIC 7.5 MG TABS 1 tablet by mouthonce a day MELOXICAM 73368742495 No Longer Active [place] FIGUEROA Active ZITHROMAX 1 GM PACK DIRECTED AZITHROMYCIN 16435478964 No Longer Active Ian Valdez MD Active ALBUTEROL SULFATE 0.083 % NEBU SOLN one vial per nebulizer every 4-6 hours as needed ALBUTEROL SULFATE 66944263950 Active Ian Valdez MD Active CHANTIX STARTING MONTH REBEKAH 0.5 MG X 11 & 1 MG X 42 TABS 0.5mg daily for 3 days , then 0.5mg BID for 4 days, then 1mg BID VARENICLINE TARTRATE 79370342869 No Longer Active Ian Valdez MD Active ZITHROMAX 1 GM PACK DIRECTED AZITHROMYCIN 48878545900 No Longer Active Ian Valdez MD Active AURALGAN 1.4-5.5 % SOLN BENZOCAINE-ANTIPYRINE 93046127794 No Longer Active Ian Valdez MD Active PREDNISONE 20 MG TAB 3 tabs daily for 3 days, 2 tab daily for 3 days, 1 tab daily for 2 days, then 1/2 tab dialy for 2 days PREDNISONE 40382737751 No Longer Active Ian Valdez MD Active SIMVASTATIN 40 MG TABS 1 TABLET PO Q HS SIMVASTATIN 59531751582 Active Ian Valdez MD Active SIMVASTATIN 80 MG TABS Take one by mouth daily SIMVASTATIN 97229384013 No Longer Active Ian Valdez MD Active PREDNISONE 20 MG TAB 2 tabs daily for 3 days, 1 tab daily for 3 days, 1/2 tab daily for 2 days PREDNISONE 32930504288 No Longer Active Ian Valdez MD Active ZITHROMAX 250 MG TAB 2 po today, then 1 po q days 2-5 AZITHROMYCIN 68709056837 No Longer Active Ian Valdez MD Active TRAZODONE HCL 100 MG TABS 2 TABS PO Q HS TRAZODONE HCL 67310563328 Active Ian Valdez MD Active ZITHROMAX 250 MG TAB 2 po today, then 1 po q days 2-5 AZITHROMYCIN 71228627233 No Longer Active Ian Valdez MD Active SIMVASTATIN 80 MG TABS Take one by mouth daily SIMVASTATIN 80 MG TABS 410951 SIMVASTATIN Inactive AURALGAN 1.4-5.5 % SOLN AURALGAN 1.4-5.5 % SOLN BENZOCAINE-ANTIPYRINE Inactive ZITHROMAX 1 GM PACK DIRECTED ZITHROMAX 1 GM PACK 399030 AZITHROMYCIN Inactive CHANTIX STARTING MONTH REBEKAH 0.5 MG X 11 & 1 MG X 42 TABS 0.5mg daily for 3 days , then 0.5mg BID for 4 days, then 1mg BID CHANTIX STARTING MONTH REBEKAH 0.5 MG X 11 & 1 MG X 42 TABS VARENICLINE TARTRATE Inactive ZITHROMAX 1 GM PACK DIRECTED ZITHROMAX 1 GM PACK 861609 AZITHROMYCIN Inactive MOBIC 7.5 MG TABS 1 tablet by mouthonce a day MOBIC 7.5 MG TABS 101718 MELOXICAM Inactive KLONOPIN 0.5 MG TABS 1 TABLET PO PRN KLONOPIN 0.5 MG TABS 235625 CLONAZEPAM Inactive CIPRO 500 MG TAB 1 tablet by mouth twice daily CIPRO 500 MG TAB 117618 CIPROFLOXACIN HCL Inactive AZITHROMYCIN 500 MG TABS 1 PO q day x 6 days AZITHROMYCIN 500 MG TABS 2589925 AZITHROMYCIN Inactive CYCLOBENZAPRINE HCL 10 MG TABS 1 PO q 8 hrs PRN muscle spasm 2012 CYCLOBENZAPRINE HCL 10 MG TABS 933304 CYCLOBENZAPRINE HCL Inactive METFORMIN HCL 500 MG [...] bid prn anxiety. XANAX 0.25 MG TABS 037817 ALPRAZOLAM Inactive LAMISIL AT 1 % CREA apply bid to rash LAMISIL AT 1 % CREA 897560 TERBINAFINE HCL Inactive TOPAMAX 25 MG TABS 1 tab po qhs x 1 week, then take 2 tabs po qhs TOPAMAX 25 MG TABS 998255 TOPIRAMATE Inactive TERBINAFINE HCL 1 % CREA Apply bid to rash TERBINAFINE HCL 1 % CREA 536298 TERBINAFINE HCL Inactive ZITHROMAX 250 MG TAB 2 po today, then 1 po q days 2-5 ZITHROMAX 250 MG TAB 8434662 AZITHROMYCIN Inactive ZITHROMAX 250 MG TAB 2 po today, then 1 po q days 2-5 ZITHROMAX 250 MG TAB 9017151 AZITHROMYCIN Inactive PREDNISONE 20 MG TAB 2 tabs daily for 3 days, 1 tab daily for 3 days, 1/2 tab daily for 2 days PREDNISONE 20 MG TAB 478655 PREDNISONE Inactive PREDNISONE 20 MG TAB 3 tabs daily for 3 days, 2 tab daily for 3 days, 1 tab daily for 2 days, then 1/2 tab dialy for 2 days PREDNISONE 20 MG TAB 296125 PREDNISONE Inactive OMEPRAZOLE 20 MG CPDR 1 tablet by mouth daily OMEPRAZOLE 20 MG CPDR 161639 OMEPRAZOLE Inactive PREDNISONE 20 MG TABS 3 qd x 2d, 2 qd x 2d, 1 qd x 2d, 1/2 qd x 2d PREDNISONE 20 MG TABS 348291 PREDNISONE Inactive TERBINAFINE HCL 250 MG TABS 1 qDay TERBINAFINE HCL 250 MG TABS 837470 TERBINAFINE HCL Inactive DOXYCYCLINE HYCLATE 100 MG CAP 1 cap by mouth twice daily DOXYCYCLINE HYCLATE 100 MG CAP 19890510 DOXYCYCLINE HYCLATE Inactive Advance Directives Directive Description Start Date NO HEROIC MEASURES Immunizations Vaccine Administration Date Value Standard Description Boostrix (Tetanus toxoid, reduced diphtheria toxoid and acellular pertussis vaccine, adsorbed), booster Boostrix [[id number]] tetanus toxoid, reduced diphtheria toxoid, and acellular [...] 1.44 m[iU]/mL 0.36-3.74 cholesterol, serum 144 mg/dL 035-262 3057/11/19 triglyceride, serum, fasting 172 mg/dL 30-200 HDL cholesterol, serum 30 mg/dL 32-96 LDL cholesterol, serum 80 mg/dL 0-130 sodium, serum 137 mmol/L 267-404 3337/11/19 potassium, serum 4.1 mmol/L 3.5-5.2 chloride, serum [...] mg/dL Encounters Code Encounter Date Provider Facility CPT-02650 Level 3 Est. Patient 20:15:16 CDT Ian Valdez MD [facility] CPT-39718 Level 3 Est. Patient 13:49:34 CDT Ian Valdez MD [facility] CPT-79579 Level 3 Est. Patient 15:50:27 RN RESEARCH Najma Vaughn APRN [facility] CPT-87423 Level 4 Est. Patient 21:20:00 RN RESEARCH Ian Valdez MD [facility] CPT-75947 Level 3 Est. Patient 15:32:41 RN RESEARCH Juan Smith MD [facility]-34646 Level 3 Est. Patient 14:45:01 CDT Eva Ferrara MD PhD [facility]-11164 Level 3 Est. Patient 14:54:10 CDT Ian Valdez MD [facility]-72191 Level 4 Est. Patient 20:36:52 CDT Ian Valdez MD [facility]-40408 Level 4 Est. Patient 11:14:30 RN RESEARCH Ian Valdez MD [facility]-37311 Level 3 Est. Patient 19:08:34 RN RESEARCH Ian Valdez MD [facility]-64282 Level 3 Est. Patient 13:17:39 RN RESEARCH Ian Valdez MD [facility]-37402 Level 4 Est. Patient 18:56:10 CDT Ian Valdez MD [facility] CPT-56923 Level 4 Est. Patient 16:55:56 CDT Ian Valdez MD [facility] CPT-40721 Level 3 Est. Patient 11:27:07 CDT Ian Valdez MD [facility] CPT-68510 Level 3 Est. Patient 15:17:44 CDT Law Rosas [facility] CPT-98341 Level 4 Est. Patient 15:13:53 CDT [place] Muniz [facility] CPT-17659 Level 3 Est. Patient 14:25:12 RN RESEARCH Ian Valdez MD [facility] CPT-38882 Level 3 Est. Patient 10:24:46 CDT Ian Valdez MD [facility]-61036 Level 3 Est. Patient 15:34:19 CDT Ian Valdez MD [facility] CPT-22942 Level 3 Est. Patient 14:22:41 CDT Ian Valdez MD [facility] CPT-19206 Level 3 Est. Patient 15:07:22 RN RESEARCH Ian Valdez MD [facility] CPT-04018 Level 3 New Patient 09:06:43 RN RESEARCH Ian Valdez MD [facility] CPT-34166 Level 3 Est. Patient 15:09:00 RN RESEARCH Ian Valdez MD [facility] Procedures Code Procedure Name Date Entry Date Standard Description CPT-OV Office Visit 16:24:22 CDT CPT-OV Office Visit 15:15:29 RN RESEARCH CPT-OV Office Visit 15:49:26 RN RESEARCH CPT-J1885 Toradol 60 mg (Ketorolac) 15:37:32 CDT CPT-07994 Abx/Therapy Injection 15:37:32 CDT CPT-J1885 Toradol 60 mg (Ketorolac) 14:45:01 CDT CPT-OV Office Visit 15:19:52 CDT CPT-OV Office Visit 10:41:01 CDT CPT-30700 Core biop breast wo imaging 16:50:06 CDT CPT-OV Office Visit 16:50:05 CDT CPT-79248 UHCG (floor use only) 13:39:36 CDT CPT-07312 Nexplanon Placement 10:11:48 CDT CPT-J7307 Nexplanon (Implant) 10:11:48 CDT CPT-OV Office Visit 09:54:18 CDT CPT-09994 EKG Trac and Interp 16:50:19 CDT CPT-57472 Venipuncture Draw Fee 15:06:08 CDT CPT-J2930 Solu Medrol 125 mg (Methyl Prednisolone Sodium Succinate) 12:44:46 CDT CPT-J1055 Depo Provera 150 mg (Medroxyprogesterone) 12:44:46 CDT CPT-27303 Abx/Therapy Injection 12:44:46 CDT CPT-J1055 Depo Provera 150 mg (Medroxyprogesterone) 14:28:41 CDT CPT-J2930 Solu Medrol 125 mg (Methyl Prednisolone Sodium Succinate) 14:22:41 CDT CPT-40929 Administration single or combination vaccine inc oral 10 :08:06 CDT CPT-85609 Tdap 10:08:06 CDT CPT-G0402 Wlcm To Medicare Ex 22:17:30 CDT CPT-89677 Venipuncture Draw Fee 10:33:07 RN RESEARCH CPT-75390 Venipuncture Draw Fee 10:17:37 RN RESEARCH CPT-G0403 EKG Wlc To Medicare 22:17:30 CDT
--- OUTSIDE RECORDS SUMMARY | 2018-07-17 21:17 | XMS REPORT | Clinical Summary ---
Author Author Admin, ARIAN Organization [facility] Address Unknown Phone Unavailable Allergies, Adverse [...] cystic mastopathy Lateral epicondylitis, right 726.32 Active Ina Valdez MD Lateral epicondylitis Fibromyalgia 729.1 Active [...] MG ORAL TBEC TID PRN DICLOFENAC SODIUM 67852313501 Active Nataliyadaria Fortuneida Active BUSPIRONE HCL 7.5 MG ORAL TABS 1 TAB PO BID PRN ANXIETY BUSPIRONE HCL 69081075716 Active Herminia Bear Active MEDROL (REBEKAH) 4 MG TABS 6 tabs on day 1, 5 tabs on day 2, 4 tabs on day 3, 3 tabs on day 4, 2 tabs on day 5, 1 tab on day 6 METHYLPREDNISOLONE 56545219764 No Longer Active Herminia Bear Active MELOXICAM 15 MG TABS 1 po q day for pain with food MELOXICAM 94330165209 Active Ian Valdez MD Active DOXYCYCLINE HYCLATE 100 MG CAP 1 cap by mouth twice daily DOXYCYCLINE HYCLATE 12327244693 No Longer Active Najma Vaughn APRN Active MULTIVITAMINS CAPS 1 tablet daily MULTIPLE VITAMIN 60052485735 Active Juan Smith MD Active CYCLOBENZAPRINE HCL 10 MG TABS 1/2 - 1 tab by mouth three times daily if needed for spasms/pain CYCLOBENZAPRINE HCL 29205746343 Active Ian Valdez MD Active GLUCOPHAGE 500 MG TABS 1 tab BID with morning and night meals METFORMIN HCL 71171762248 Active Eva Ferrara MD PhD Active PROGESTERONE MICRONIZED 100 MG CAPS 2 caps daily day 16 thru 25 of cycle 2013 PROGESTERONE MICRONIZED 67372622282 Active Eva Ferrara MD PhD Active TERBINAFINE HCL 1 % CREA Apply bid to rash TERBINAFINE HCL 70124711869 No Longer Active Eva Ferrara MD PhD Active TOPAMAX 25 MG TABS 1 tab po qhs x 1 week, then take 2 tabs po qhs TOPIRAMATE 97683269231 No Longer Active Thom Gilbert MD Active ULTRAM 50 MG TAB take 1 tab po q6hrs prn pain TRAMADOL HCL 82662595380 Active Ian Valdez MD Active LAMISIL AT 1 % CREA apply bid to rash TERBINAFINE HCL 15199312704 No Longer Active Thom Gilbert MD Active TERBINAFINE HCL 250 MG TABS 1 qDay TERBINAFINE HCL 88447891155 No Longer Active Ian Valdez MD Active XANAX 0.25 MG TABS take 1 tab po bid prn anxiety. ALPRAZOLAM 03295849517 No Longer Active Ian Valdez MD Active FISH OIL 1000 MG CAPS 2 caps PO once daily at bedtime OMEGA-3 FATTY ACIDS 83940627249 No Longer Active Ian Valdez MD Active KLOR-CON M20 20 MEQ CR-TABS take 1 tab po qday with lasix POTASSIUM CHLORIDE GALILEO CR 93977862960 Active Ian Valdez MD Active LASIX 20 MG TAB 1 tablet by mouth daily prn swelling FUROSEMIDE 29739132404 Active Ian Valdez MD Active FLONASE 50 MCG/ACT SUSP 2 puffs in each nostril once daily at bedtime FLUTICASONE PROPIONATE 87804741583 Active Ian Valdez MD Active CVS MELATONIN 3 MG TABS 2 tabs PO at bedtime MELATONIN 82003974051 Active Ian Valdez MD Active PULMICORT FLEXHALER 180 MCG/ACT AEPB 2 INH BID BUDESONIDE 60806112220 No Longer Active Ian Valdez MD Active METFORMIN HCL 500 MG TB24 1 TAB PO Q HS METFORMIN HCL 15376459411 No Longer Active Ian Valdez MD Active CYCLOBENZAPRINE HCL 10 MG TABS 1 PO q 8 hrs PRN muscle spasm 2012 CYCLOBENZAPRINE HCL 50324785739 No Longer Active Ian Valdez MD Active AZITHROMYCIN 500 MG TABS 1 PO q day x 6 days AZITHROMYCIN 07773576665 No Longer Active Ian Valdez MD Active CIPRO 500 MG TAB 1 tablet by mouth twice daily CIPROFLOXACIN HCL 13684985129 No Longer Active aIn Valdez MD Active PREDNISONE 20 MG TABS 3 qd x 2d, 2 qd x 2d, 1 qd x 2d, 1/2 qd x 2d PREDNISONE 94595257586 No Longer Active Law FIGUEROA Active CELEXA 40 MG TABS 2 PO DAILY CITALOPRAM HYDROBROMIDE 93991661628 Active Ian Valdez MD Active OMEPRAZOLE 20 MG CPDR 1 tablet by mouth daily OMEPRAZOLE 61915370932 No Longer Active [place] FIGUEROA Active KLONOPIN 0.5 MG TABS 1 TABLET PO PRN CLONAZEPAM 69812664164 No Longer Active [place] FIGUEROA Active MOBIC 7.5 MG TABS 1 tablet by mouthonce a day MELOXICAM 77999663243 No Longer Active [place] FIGUEROA Active ZITHROMAX 1 GM PACK DIRECTED AZITHROMYCIN 93055938624 No Longer Active Ian Valdez MD Active ALBUTEROL SULFATE 0.083 % NEBU SOLN one vial per nebulizer every 4-6 hours as needed ALBUTEROL SULFATE 78487458647 Active Ian Valdez MD Active CHANTIX STARTING MONTH REBEKAH 0.5 MG X 11 & 1 MG X 42 TABS 0.5mg daily for 3 days , then 0.5mg BID for 4 days, then 1mg BID VARENICLINE TARTRATE 45070784553 No Longer Active Ian Valdez MD Active ZITHROMAX 1 GM PACK DIRECTED AZITHROMYCIN 74014115129 No Longer Active Ian Valdez MD Active AURALGAN 1.4-5.5 % SOLN BENZOCAINE-ANTIPYRINE 72087779765 No Longer Active Ian Valdez MD Active PREDNISONE 20 MG TAB 3 tabs daily for 3 days, 2 tab daily for 3 days, 1 tab daily for 2 days, then 1/2 tab dialy for 2 days PREDNISONE 60899740194 No Longer Active Ian Valdez MD Active SIMVASTATIN 40 MG TABS 1 TABLET PO Q HS SIMVASTATIN 44616736418 Active Ian Valdez MD Active SIMVASTATIN 80 MG TABS Take one by mouth daily SIMVASTATIN 11345160854 No Longer Active Ian Valdez MD Active PREDNISONE 20 MG TAB 2 tabs daily for 3 days, 1 tab daily for 3 days, 1/2 tab daily for 2 days PREDNISONE 68302174469 No Longer Active Ian Valdez MD Active ZITHROMAX 250 MG TAB 2 po today, then 1 po q days 2-5 AZITHROMYCIN 21971257483 No Longer Active Ian Valdez MD Active TRAZODONE HCL 100 MG TABS 2 TABS PO Q HS TRAZODONE HCL 46265086362 Active Ian Valdez MD Active ZITHROMAX 250 MG TAB 2 po today, then 1 po q days 2-5 AZITHROMYCIN 00533632215 No Longer Active Ian Valdez MD Active SIMVASTATIN 80 MG TABS Take one by mouth daily SIMVASTATIN 80 MG TABS 825459 SIMVASTATIN Inactive AURALGAN 1.4-5.5 % SOLN AURALGAN 1.4-5.5 % SOLN BENZOCAINE-ANTIPYRINE Inactive ZITHROMAX 1 GM PACK DIRECTED ZITHROMAX 1 GM PACK 923657 AZITHROMYCIN Inactive CHANTIX STARTING MONTH REBEKAH 0.5 MG X 11 & 1 MG X 42 TABS 0.5mg daily for 3 days , then 0.5mg BID for 4 days, then 1mg BID CHANTIX STARTING MONTH REBEKAH 0.5 MG X 11 & 1 MG X 42 TABS VARENICLINE TARTRATE Inactive ZITHROMAX 1 GM PACK DIRECTED ZITHROMAX 1 GM PACK 505076 AZITHROMYCIN Inactive MOBIC 7.5 MG TABS 1 tablet by mouthonce a day MOBIC 7.5 MG TABS 326658 MELOXICAM Inactive KLONOPIN 0.5 MG TABS 1 TABLET PO PRN KLONOPIN 0.5 MG TABS 730570 CLONAZEPAM Inactive CIPRO 500 MG TAB 1 tablet by mouth twice daily CIPRO 500 MG TAB 835310 CIPROFLOXACIN HCL Inactive AZITHROMYCIN 500 MG TABS 1 PO q day x 6 days AZITHROMYCIN 500 MG TABS 6283225 AZITHROMYCIN Inactive CYCLOBENZAPRINE HCL 10 MG TABS 1 PO q 8 hrs PRN muscle spasm 2012 CYCLOBENZAPRINE HCL 10 MG TABS 139982 CYCLOBENZAPRINE HCL Inactive METFORMIN HCL 500 MG [...] bid prn anxiety. XANAX 0.25 MG TABS 793459 ALPRAZOLAM Inactive LAMISIL AT 1 % CREA apply bid to rash LAMISIL AT 1 % CREA 818731 TERBINAFINE HCL Inactive TOPAMAX 25 MG TABS 1 tab po qhs x 1 week, then take 2 tabs po qhs TOPAMAX 25 MG TABS 914935 TOPIRAMATE Inactive TERBINAFINE HCL 1 % CREA Apply bid to rash TERBINAFINE HCL 1 % CREA 330401 TERBINAFINE HCL Inactive ZITHROMAX 250 MG TAB 2 po today, then 1 po q days 2-5 ZITHROMAX 250 MG TAB 1615477 AZITHROMYCIN Inactive ZITHROMAX 250 MG TAB 2 po today, then 1 po q days 2-5 ZITHROMAX 250 MG TAB 0648886 AZITHROMYCIN Inactive PREDNISONE 20 MG TAB 2 tabs daily for 3 days, 1 tab daily for 3 days, 1/2 tab daily for 2 days PREDNISONE 20 MG TAB 674278 PREDNISONE Inactive PREDNISONE 20 MG TAB 3 tabs daily for 3 days, 2 tab daily for 3 days, 1 tab daily for 2 days, then 1/2 tab dialy for 2 days PREDNISONE 20 MG TAB 788814 PREDNISONE Inactive OMEPRAZOLE 20 MG CPDR 1 tablet by mouth daily OMEPRAZOLE 20 MG CPDR 377394 OMEPRAZOLE Inactive PREDNISONE 20 MG TABS 3 qd x 2d, 2 qd x 2d, 1 qd x 2d, 1/2 qd x 2d PREDNISONE 20 MG TABS 222178 PREDNISONE Inactive TERBINAFINE HCL 250 MG TABS 1 qDay TERBINAFINE HCL 250 MG TABS 828831 TERBINAFINE HCL Inactive DOXYCYCLINE HYCLATE 100 MG [...] and acellular pertussis vaccine, adsorbed), booster Boostrix [VAR109] tetanus toxoid, reduced diphtheria toxoid, and acellular [...] 1.44 m[iU]/mL 0.36-3.74 cholesterol, serum 144 mg/dL 455-812 9989/11/19 triglyceride, serum, fasting 172 mg/dL 30-200 HDL cholesterol, serum 30 mg/dL 32-96 LDL cholesterol, serum 80 mg/dL 0-130 sodium, serum 137 mmol/L 658-032 9745/11/19 potassium, serum 4.1 mmol/L 3.5-5.2 chloride, serum [...] mg/dL Encounters Code Encounter Date Provider Facility CPT-69341 Level 3 Est. Patient 20:15:16 CDT Ian Valdez MD [facility] CPT-57049 Level 3 Est. Patient 13:49:34 CDT Ian Valdez MD [facility]-26653 Level 3 Est. Patient 15:50:27 SIDE DOOR MAN Najma Vaughn APRN [facility]-28766 Level 4 Est. Patient 21:20:00 SIDE DOOR MAN Ian Valdez MD [facility]-92284 Level 3 Est. Patient 15:32:41 SIDE DOOR MAN Juan Smith MD [facility]-57655 Level 3 Est. Patient 14:45:01 CDT Eva Ferrara MD PhD [facility]-95012 Level 3 Est. Patient 14:54:10 CDT Ian Valdez MD [facility]-24906 Level 4 Est. Patient 20:36:52 CDT Ian Valdez MD [facility]-66383 Level 4 Est. Patient 11:14:30 SIDE DOOR MAN Ian Valdez MD [facility]-76855 Level 3 Est. Patient 19:08:34 SIDE DOOR MAN Ian Valdez MD [facility]-21525 Level 3 Est. Patient 13:17:39 SIDE DOOR MAN Ian Valdez MD [facility]-37946 Level 4 Est. Patient 18:56:10 CDT Ian Valdez MD [facility]-77098 Level 4 Est. Patient 16:55:56 CDT Ian Valdez MD [facility]-47229 Level 3 Est. Patient 11:27:07 CDT Ian Valdez MD [facility]-75500 Level 3 Est. Patient 15:17:44 CDT Law FIGUEROA [facility]-06619 Level 4 Est. Patient 15:13:53 CDT [place] FIGUEROA [facility] CPT-00912 Level 3 Est. Patient 14:25:12 SIDE DOOR MAN Ian Valdez MD [facility] CPT-55929 Level 3 Est. Patient 10:24:46 CDT Ian Valdez MD [facility] CPT-75396 Level 3 Est. Patient 15:34:19 CDT Ian Valdez MD [facility] CPT-09212 Level 3 Est. Patient 14:22:41 CDT Ian Valdez MD [facility] CPT-87698 Level 3 Est. Patient 15:07:22 SIDE DOOR MAN Ian Valdez MD [facility] CPT-25862 Level 3 New Patient 09:06:43 SIDE DOOR MAN Ian Valdez MD [facility] CPT-84953 Level 3 Est. Patient 15:09:00 SIDE DOOR MAN Ian Valdez MD [facility] Procedures Code Procedure Name Date Entry Date Standard Description CPT-OV Office Visit 16:24:22 CDT CPT-OV Office Visit 15:15:29 SIDE DOOR MAN CPT-OV Office Visit 15:49:26 SIDE DOOR MAN CPT-J1885 Toradol 60 mg (Ketorolac) 15:37:32 CDT CPT-28391 Abx/Therapy Injection 15:37:32 CDT CPT-J1885 Toradol 60 mg (Ketorolac) 14:45:01 CDT CPT-OV Office Visit 15:19:52 CDT CPT-OV Office Visit 10:41:01 CDT CPT-71782 Core biop breast wo imaging 16:50:06 CDT CPT-OV Office Visit 16:50:05 CDT CPT-51852 UHCG (floor use only) 13:39:36 CDT CPT-43336 Nexplanon Placement 10:11:48 CDT CPT-J7307 Nexplanon (Implant) 10:11:48 CDT CPT-OV Office Visit 09:54:18 CDT CPT-19019 EKG Trac and Interp 16:50:19 CDT CPT-76495 Venipuncture Draw Fee 15:06:08 CDT CPT-J2930 Solu Medrol 125 mg (Methyl Prednisolone Sodium Succinate) 12:44:46 CDT CPT-J1055 Depo Provera 150 mg (Medroxyprogesterone) 12:44:46 CDT CPT-42901 Abx/Therapy Injection 12:44:46 CDT CPT-J1055 Depo Provera 150 mg (Medroxyprogesterone) 14:28:41 CDT CPT-J2930 Solu Medrol 125 mg (Methyl Prednisolone Sodium Succinate) 14:22:41 CDT CPT-37573 Administration single or combination vaccine inc oral 10 :08:06 CDT CPT-17499 Tdap 10:08:06 CDT CPT-G0402 Wlcm To Medicare Ex 22:17:30 CDT CPT-40967 Venipuncture Draw Fee 10:33:07 SIDE DOOR MAN CPT-48230 Venipuncture Draw Fee 10:17:37 SIDE DOOR MAN CPT-G0403 EKG Wlc To Medicare 22:17:30 CDT
[2018-07-17 21:18] LABS: BILIRUBIN,URINE NEGATIVE (NEGATIVE); CLARITY,URINE CLEAR; COLOR,URINE YELLOW; GLUCOSE, URINE (UA) NEGATIVE (NEGATIVE); KETONES,URINE NEGATIVE (NEGATIVE); NITRITE,URINE NEGATIVE (NEGATIVE); PROTEIN,URINE NEGATIVE (NEGATIVE); UROBILINOGEN,URINE 0.2 MG/DL (NORMAL)
--- OUTSIDE RECORDS SUMMARY | 2018-07-17 21:18 | XMS REPORT | Clinical Summary ---
Author Author Admin, ARIAN Organization [facility] Address Unknown Phone Unavailable Allergies, Adverse [...] MD Unspecified procreative management ICD-V26.9 Inactive Thom iGlbert MD Tinea cruris ICD-110.3 Inactive Thom Gilbert [...] TAB PO BID PRN ANXIETY BUSPIRONE HCL [id number] Active Herminia Bear Active MEDROL (REBEKAH) 4 MG TABS 6 tabs on day 1, 5 tabs on day 2, 4 tabs on day 3, 3 tabs on day 4, 2 tabs on day 5, 1 tab on day 6 [facility] 19726937843 Active Herminia Bear Active MELOXICAM 15 MG TABS 1 po q day for pain with food MELOXICAM 35029496224 Active Ian Valdez MD Active DOXYCYCLINE HYCLATE 100 MG CAP 1 cap by mouth twice daily DOXYCYCLINE HYCLATE 00252479466 No Longer Active Najma Vaughn APRN Active MULTIVITAMINS CAPS 1 tablet daily MULTIPLE VITAMIN 49776725648 Active Juan Smith MD Active CYCLOBENZAPRINE HCL 10 MG TABS 1/2 - 1 tab by mouth three times daily if needed for spasms/pain CYCLOBENZAPRINE HCL 77500385056 Active Ian Valdez MD Active GLUCOPHAGE 500 MG TABS 1 tab BID with morning and night meals METFORMIN HCL 75535497230 Active Eva Ferrara MD PhD Active PROGESTERONE MICRONIZED 100 MG CAPS 2 caps daily day 16 thru 25 of cycle 2013 PROGESTERONE MICRONIZED 40555374972 Active Eva Ferrara MD PhD Active TERBINAFINE HCL 1 % CREA Apply bid to rash TERBINAFINE HCL 97299103887 No Longer Active Eva Ferrara MD PhD Active TOPAMAX 25 MG TABS 1 tab po qhs x 1 week, then take 2 tabs po qhs TOPIRAMATE 42047496373 No Longer Active Thom Gilbert MD Active ULTRAM 50 MG TAB take 1 tab po q6hrs prn pain TRAMADOL HCL 68608855852 Active Ian Valdez MD Active LAMISIL AT 1 % CREA apply bid to rash TERBINAFINE HCL 37697466832 No Longer Active Thom Gilbert MD Active TERBINAFINE HCL 250 MG TABS 1 qDay TERBINAFINE HCL 20181861770 No Longer Active Ian Valdez MD Active XANAX 0.25 MG TABS take 1 tab po bid prn anxiety. ALPRAZOLAM 74398095451 No Longer Active Ian Valdez MD Active FISH OIL 1000 MG CAPS 2 caps PO once daily at bedtime OMEGA-3 FATTY ACIDS 52785837015 No Longer Active Ian Valdez MD Active KLOR-CON M20 20 MEQ CR-TABS take 1 tab po qday with lasix POTASSIUM CHLORIDE GALILEO CR 55822138613 Active Ian Valdez MD Active LASIX 20 MG TAB 1 tablet by mouth daily prn swelling FUROSEMIDE 51570123106 Active Ian Valdez MD Active FLONASE 50 MCG/ACT SUSP 2 puffs in each nostril once daily at bedtime FLUTICASONE PROPIONATE 23812899242 Active Ian Valdez MD Active CVS MELATONIN 3 MG TABS 2 tabs PO at bedtime MELATONIN 10543252093 Active Ian Valdez MD Active PULMICORT FLEXHALER 180 MCG/ACT AEPB 2 INH BID BUDESONIDE 64866810903 No Longer Active Ian Valdez MD Active METFORMIN HCL 500 MG TB24 1 TAB PO Q HS METFORMIN HCL 88017734534 No Longer Active Ian Valdez MD Active CYCLOBENZAPRINE HCL 10 MG TABS 1 PO q 8 hrs PRN muscle spasm 2012 CYCLOBENZAPRINE HCL 93362895649 No Longer Active Ian Valdez MD Active AZITHROMYCIN 500 MG TABS 1 PO q day x 6 days AZITHROMYCIN 13803644334 No Longer Active Ian Valdez MD Active CIPRO 500 MG TAB 1 tablet by mouth twice daily CIPROFLOXACIN HCL 84718580603 No Longer Active Ian Valdez MD Active PREDNISONE 20 MG TABS 3 qd x 2d, 2 qd x 2d, 1 qd x 2d, 1/2 qd x 2d PREDNISONE 32512299137 No Longer Active Law FIGUEROA Active CELEXA 40 MG TABS 2 PO DAILY CITALOPRAM HYDROBROMIDE 87898036650 Active Ian Valdez MD Active OMEPRAZOLE 20 MG CPDR 1 tablet by mouth daily OMEPRAZOLE 54131172028 No Longer Active [place] FIGUEROA Active KLONOPIN 0.5 MG TABS 1 TABLET PO PRN CLONAZEPAM 85564347500 No Longer Active [place] FIGUEROA Active MOBIC 7.5 MG TABS 1 tablet by mouthonce a day MELOXICAM 99381220067 No Longer Active [place] FIGUEROA Active ZITHROMAX 1 GM PACK DIRECTED AZITHROMYCIN 50394153048 No Longer Active Ian Valdez MD Active ALBUTEROL SULFATE 0.083 % NEBU SOLN one vial per nebulizer every 4-6 hours as needed ALBUTEROL SULFATE 48528270572 Active Ian Valdez MD Active CHANTIX STARTING MONTH REBEKAH 0.5 MG X 11 & 1 MG X 42 TABS 0.5mg daily for 3 days , then 0.5mg BID for 4 days, then 1mg BID VARENICLINE TARTRATE 17157033057 No Longer Active Ian Valdez MD Active ZITHROMAX 1 GM PACK DIRECTED AZITHROMYCIN 87971241351 No Longer Active Ian Valdez MD Active AURALGAN 1.4-5.5 % SOLN BENZOCAINE-ANTIPYRINE 91471459148 No Longer Active Ian Valdez MD Active PREDNISONE 20 MG TAB 3 tabs daily for 3 days, 2 tab daily for 3 days, 1 tab daily for 2 days, then 1/2 tab dialy for 2 days PREDNISONE 05002766588 No Longer Active Ian Valdez MD Active SIMVASTATIN 40 MG TABS 1 TABLET PO Q HS SIMVASTATIN 32020352206 Active Ian Valdez MD Active SIMVASTATIN 80 MG TABS Take one by mouth daily SIMVASTATIN 11838580695 No Longer Active Ian Valdez MD Active PREDNISONE 20 MG TAB 2 tabs daily for 3 days, 1 tab daily for 3 days, 1/2 tab daily for 2 days PREDNISONE 17550781503 No Longer Active Ian Valdez MD Active ZITHROMAX 250 MG TAB 2 po today, then 1 po q days 2-5 AZITHROMYCIN 62126509246 No Longer Active Ian Valdez MD Active TRAZODONE HCL 100 MG TABS 2 TABS PO Q HS TRAZODONE HCL 88967260625 Active Ian Valdez MD Active ZITHROMAX 250 MG TAB 2 po today, then 1 po q days 2-5 AZITHROMYCIN 84221691359 No Longer Active Ian Valdez MD Active SIMVASTATIN 80 MG TABS Take one by mouth daily SIMVASTATIN 80 MG TABS 934660 SIMVASTATIN Inactive AURALGAN 1.4-5.5 % SOLN AURALGAN 1.4-5.5 % SOLN BENZOCAINE-ANTIPYRINE Inactive ZITHROMAX 1 GM PACK DIRECTED ZITHROMAX 1 GM PACK 653270 AZITHROMYCIN Inactive CHANTIX STARTING MONTH REBEKAH 0.5 MG X 11 & 1 MG X 42 TABS 0.5mg daily for 3 days , then 0.5mg BID for 4 days, then 1mg BID CHANTIX STARTING MONTH REBEKAH 0.5 MG X 11 & 1 MG X 42 TABS VARENICLINE TARTRATE Inactive ZITHROMAX 1 GM PACK DIRECTED ZITHROMAX 1 GM PACK 495710 AZITHROMYCIN Inactive MOBIC 7.5 MG TABS 1 tablet by mouthonce a day MOBIC 7.5 MG TABS 798909 MELOXICAM Inactive KLONOPIN 0.5 MG TABS 1 TABLET PO PRN KLONOPIN 0.5 MG TABS 832452 CLONAZEPAM Inactive CIPRO 500 MG TAB 1 tablet by mouth twice daily CIPRO 500 MG TAB 090987 CIPROFLOXACIN HCL Inactive AZITHROMYCIN 500 MG TABS 1 PO q day x 6 days AZITHROMYCIN 500 MG TABS 1317739 AZITHROMYCIN Inactive CYCLOBENZAPRINE HCL 10 MG TABS 1 PO q 8 hrs PRN muscle spasm 2012 CYCLOBENZAPRINE HCL 10 MG TABS 194817 CYCLOBENZAPRINE HCL Inactive METFORMIN HCL 500 MG [...] bid prn anxiety. XANAX 0.25 MG TABS 925148 ALPRAZOLAM Inactive LAMISIL AT 1 % CREA apply bid to rash LAMISIL AT 1 % CREA 764102 TERBINAFINE HCL Inactive TOPAMAX 25 MG TABS 1 tab po qhs x 1 week, then take 2 tabs po qhs TOPAMAX 25 MG TABS 887759 TOPIRAMATE Inactive TERBINAFINE HCL 1 % CREA Apply bid to rash TERBINAFINE HCL 1 % CREA 908940 TERBINAFINE HCL Inactive ZITHROMAX 250 MG TAB 2 po today, then 1 po q days 2-5 ZITHROMAX 250 MG TAB 8373409 AZITHROMYCIN Inactive ZITHROMAX 250 MG TAB 2 po today, then 1 po q days 2-5 ZITHROMAX 250 MG TAB 0875892 AZITHROMYCIN Inactive PREDNISONE 20 MG TAB 2 tabs daily for 3 days, 1 tab daily for 3 days, 1/2 tab daily for 2 days PREDNISONE 20 MG TAB 066139 PREDNISONE Inactive PREDNISONE 20 MG TAB 3 tabs daily for 3 days, 2 tab daily for 3 days, 1 tab daily for 2 days, then 1/2 tab dialy for 2 days PREDNISONE 20 MG TAB 941492 PREDNISONE Inactive OMEPRAZOLE 20 MG CPDR 1 tablet by mouth daily OMEPRAZOLE 20 MG CPDR 962199 OMEPRAZOLE Inactive PREDNISONE 20 MG TABS 3 qd x 2d, 2 qd x 2d, 1 qd x 2d, 1/2 qd x 2d PREDNISONE 20 MG TABS 653595 PREDNISONE Inactive TERBINAFINE HCL 250 MG TABS 1 qDay TERBINAFINE HCL 250 MG TABS 849885 TERBINAFINE HCL Inactive DOXYCYCLINE HYCLATE 100 MG CAP 1 cap by mouth twice daily DOXYCYCLINE HYCLATE 100 MG CAP 19890510 DOXYCYCLINE HYCLATE Inactive Advance Directives Directive Description Start Date NO HEROIC MEASURES Immunizations Vaccine Administration Date Value Standard Description Boostrix (Tetanus toxoid, reduced diphtheria toxoid and acellular pertussis vaccine, adsorbed), booster Boostrix [[id number]] tetanus toxoid, reduced diphtheria toxoid, and acellular [...] 1.44 m[iU]/mL 0.36-3.74 cholesterol, serum 144 mg/dL 096-163 3823/11/19 triglyceride, serum, fasting 172 mg/dL 30-200 HDL cholesterol, serum 30 mg/dL 32-96 LDL cholesterol, serum 80 mg/dL 0-130 sodium, serum 137 mmol/L 955-079 8865/11/19 potassium, serum 4.1 mmol/L 3.5-5.2 chloride, serum [...] mg/dL Encounters Code Encounter Date Provider Facility CPT-72699 Level 3 Est. Patient 20:15:16 CDT Ian Valdez MD [facility] CPT-00121 Level 3 Est. Patient 13:49:34 CDT Ian Valdez MD [facility] CPT-78551 Level 3 Est. Patient 15:50:27 PUBLIC HEALTH CLINICAL NURSE SPECIALIST Najma Vaughn APRN [facility] CPT-69863 Level 4 Est. Patient 21:20:00 PUBLIC HEALTH CLINICAL NURSE SPECIALIST Ian Valdez MD [facility] CPT-03634 Level 3 Est. Patient 15:32:41 PUBLIC HEALTH CLINICAL NURSE SPECIALIST Juan Smith MD [facility]-76151 Level 3 Est. Patient 14:45:01 CDT Eva Ferrara MD PhD [facility]-16603 Level 3 Est. Patient 14:54:10 CDT Ian Valdez MD [facility]-42327 Level 4 Est. Patient 20:36:52 CDT Ian Valdez MD [facility]-50124 Level 4 Est. Patient 11:14:30 PUBLIC HEALTH CLINICAL NURSE SPECIALIST Ian Valdez MD [facility]-02924 Level 3 Est. Patient 19:08:34 PUBLIC HEALTH CLINICAL NURSE SPECIALIST Ian Valdez MD [facility]-95076 Level 3 Est. Patient 13:17:39 PUBLIC HEALTH CLINICAL NURSE SPECIALIST Ian Valdez MD [facility]-17217 Level 4 Est. Patient 18:56:10 CDT Ian Valdez MD [facility] CPT-72859 Level 4 Est. Patient 16:55:56 CDT Ian Valdez MD [facility] CPT-95564 Level 3 Est. Patient 11:27:07 CDT Ian Valdez MD [facility] CPT-73540 Level 3 Est. Patient 15:17:44 CDT Law Rosas [facility] CPT-53403 Level 4 Est. Patient 15:13:53 CDT Wellington Muniz [facility] CPT-28421 Level 3 Est. Patient 14:25:12 PUBLIC HEALTH CLINICAL NURSE SPECIALIST Ian Valdez MD [facility] CPT-83629 Level 3 Est. Patient 10:24:46 CDT Ian Valdez MD [facility]-74813 Level 3 Est. Patient 15:34:19 CDT Ian Valdez MD [facility] CPT-99880 Level 3 Est. Patient 14:22:41 CDT Ian Valdez MD [facility] CPT-93959 Level 3 Est. Patient 15:07:22 PUBLIC HEALTH CLINICAL NURSE SPECIALIST Ian Valdez MD [facility] CPT-20509 Level 3 New Patient 09:06:43 PUBLIC HEALTH CLINICAL NURSE SPECIALIST Ian Valdez MD [facility] CPT-68651 Level 3 Est. Patient 15:09:00 PUBLIC HEALTH CLINICAL NURSE SPECIALIST Ian Valdez MD [facility] Procedures Code Procedure Name Date Entry Date Standard Description CPT-OV Office Visit 16:24:22 CDT CPT-OV Office Visit 15:15:29 PUBLIC HEALTH CLINICAL NURSE SPECIALIST CPT-OV Office Visit 15:49:26 PUBLIC HEALTH CLINICAL NURSE SPECIALIST CPT-J1885 Toradol 60 mg (Ketorolac) 15:37:32 CDT CPT-35395 Abx/Therapy Injection 15:37:32 CDT CPT-J1885 Toradol 60 mg (Ketorolac) 14:45:01 CDT CPT-OV Office Visit 15:19:52 CDT CPT-OV Office Visit 10:41:01 CDT CPT-83030 Core biop breast wo imaging 16:50:06 CDT CPT-OV Office Visit 16:50:05 CDT CPT-39923 UHCG (floor use only) 13:39:36 CDT CPT-81863 Nexplanon Placement 10:11:48 CDT CPT-J7307 Nexplanon (Implant) 10:11:48 CDT CPT-OV Office Visit 09:54:18 CDT CPT-20193 EKG Trac and Interp 16:50:19 CDT CPT-98084 Venipuncture Draw Fee 15:06:08 CDT CPT-J2930 Solu Medrol 125 mg (Methyl Prednisolone Sodium Succinate) 12:44:46 CDT CPT-J1055 Depo Provera 150 mg (Medroxyprogesterone) 12:44:46 CDT CPT-14145 Abx/Therapy Injection 12:44:46 CDT CPT-J1055 Depo Provera 150 mg (Medroxyprogesterone) 14:28:41 CDT CPT-J2930 Solu Medrol 125 mg (Methyl Prednisolone Sodium Succinate) 14:22:41 CDT CPT-20088 Administration single or combination vaccine inc oral 10 :08:06 CDT CPT-39573 Tdap 10:08:06 CDT CPT-G0402 Wlcm To Medicare Ex 22:17:30 CDT CPT-64388 Venipuncture Draw Fee 10:33:07 PUBLIC HEALTH CLINICAL NURSE SPECIALIST CPT-96776 Venipuncture Draw Fee 10:17:37 PUBLIC HEALTH CLINICAL NURSE SPECIALIST CPT-G0403 EKG Wlc To Medicare 22:17:30 CDT
[2018-07-17 21:19] LABS: LEUKOCYTE ESTERASE ,URINE NEGATIVE (NEGATIVE); SQUAMOUS EPITHELIAL CELL,UR 0-2 /HPF
--- OUTSIDE RECORDS SUMMARY | 2018-07-17 21:19 | XMS REPORT | Clinical Summary ---
Author Author Admin, ARIAN Organization [facility] Address Unknown Phone Unavailable Allergies, Adverse Reactions, [...] po BID PRN Constipation 10/07 MAGNESIUM CITRATE 85990945351 Active Carlos Mccormack MD Active DICLOFENAC SODIUM 50 MG ORAL TBEC TID PRN DICLOFENAC SODIUM 65141899855 Active Nataliya Lozada Active BUSPIRONE HCL 7.5 MG ORAL TABS 1 TAB PO BID PRN ANXIETY BUSPIRONE HCL 11694973190 Active Herminia Bear Active MEDROL (REBEKAH) 4 MG TABS 6 tabs on day 1, 5 tabs on day 2, 4 tabs on day 3, 3 tabs on day 4, 2 tabs on day 5, 1 tab on day 6 METHYLPREDNISOLONE 28853848825 No Longer Active Herminia Bear Active MELOXICAM 15 MG TABS 1 po q day for pain with food MELOXICAM 30488577773 Active Ian Valdez MD Active DOXYCYCLINE HYCLATE 100 MG CAP 1 cap by mouth twice daily DOXYCYCLINE HYCLATE 37980890554 No Longer Active Najma Vaughn APRN Active MULTIVITAMINS CAPS 1 tablet daily MULTIPLE VITAMIN 86757599727 Active Juan Smith MD Active CYCLOBENZAPRINE HCL 10 MG TABS 1/2 - 1 tab by mouth three times daily if needed for spasms/pain CYCLOBENZAPRINE HCL 36521645387 Active Ian Valdez MD Active GLUCOPHAGE 500 MG TABS 1 tab BID with morning and night meals METFORMIN HCL 80876120062 Active Eva Ferrara MD PhD Active PROGESTERONE MICRONIZED 100 MG CAPS 2 caps daily day 16 thru 25 of cycle 2013 PROGESTERONE MICRONIZED 62276662185 Active Eva Ferrara MD PhD Active TERBINAFINE HCL 1 % CREA Apply bid to rash TERBINAFINE HCL 68944581430 No Longer Active Eva Ferrara MD PhD Active TOPAMAX 25 MG TABS 1 tab po qhs x 1 week, then take 2 tabs po qhs TOPIRAMATE 07546298714 No Longer Active Thom Gilbert MD Active ULTRAM 50 MG TAB take 1 tab po q6hrs prn pain TRAMADOL HCL 97984918788 Active Grayosn Josue DO Active LAMISIL AT 1 % CREA apply bid to rash TERBINAFINE HCL 96519297751 No Longer Active Thom Gilbert MD Active TERBINAFINE HCL 250 MG TABS 1 qDay TERBINAFINE HCL 41244251869 No Longer Active Ian Valdez MD Active XANAX 0.25 MG TABS take 1 tab po bid prn anxiety. ALPRAZOLAM 36720508948 No Longer Active Ian Valdez MD Active FISH OIL 1000 MG CAPS 2 caps PO once daily at bedtime OMEGA-3 FATTY ACIDS 26377367932 No Longer Active Ian Valdez MD Active KLOR-CON M20 20 MEQ CR-TABS take 1 tab po qday with lasix POTASSIUM CHLORIDE GALILEO CR 88770574980 Active Ian Valdez MD Active LASIX 20 MG TAB 1 tablet by mouth daily prn swelling FUROSEMIDE 38507512404 Active Ian Valdez MD Active FLONASE 50 MCG/ACT SUSP 2 puffs in each nostril once daily at bedtime FLUTICASONE PROPIONATE 42650977592 Active Ian Valdez MD Active CVS MELATONIN 3 MG TABS 2 tabs PO at bedtime MELATONIN 69906859412 Active Ian Valdez MD Active PULMICORT FLEXHALER 180 MCG/ACT AEPB 2 INH BID BUDESONIDE 40563423951 No Longer Active Ian Valdez MD Active METFORMIN HCL 500 MG TB24 1 TAB PO Q HS METFORMIN HCL 33747562650 No Longer Active Ian Valdez MD Active CYCLOBENZAPRINE HCL 10 MG TABS 1 PO q 8 hrs PRN muscle spasm 2012 CYCLOBENZAPRINE HCL 78789395518 No Longer Active Ian Valdez MD Active AZITHROMYCIN 500 MG TABS 1 PO q day x 6 days AZITHROMYCIN 06748146537 No Longer Active Ian Valdez MD Active CIPRO 500 MG TAB 1 tablet by mouth twice daily CIPROFLOXACIN HCL 59194770872 No Longer Active Ian Valdez MD Active PREDNISONE 20 MG TABS 3 qd x 2d, 2 qd x 2d, 1 qd x 2d, 1/2 qd x 2d PREDNISONE 12110575975 No Longer Active Law FIGUEROA Active CELEXA 40 MG TABS 2 PO DAILY CITALOPRAM HYDROBROMIDE 05159627189 Active Ian Valdez MD Active OMEPRAZOLE 20 MG CPDR 1 tablet by mouth daily OMEPRAZOLE 15827576330 No Longer Active [place] FIGUEROA Active KLONOPIN 0.5 MG TABS 1 TABLET PO PRN CLONAZEPAM 25900906322 No Longer Active [place] FIGUEROA Active MOBIC 7.5 MG TABS 1 tablet by mouthonce a day MELOXICAM 11016802857 No Longer Active [place] FIGUEROA Active ZITHROMAX 1 GM PACK DIRECTED AZITHROMYCIN 44269545239 No Longer Active Ian Valdez MD Active ALBUTEROL SULFATE 0.083 % NEBU SOLN one vial per nebulizer every 4-6 hours as needed ALBUTEROL SULFATE 87588895706 Active Ian Valdez MD Active CHANTIX STARTING MONTH REBEKAH 0.5 MG X 11 & 1 MG X 42 TABS 0.5mg daily for 3 days , then 0.5mg BID for 4 days, then 1mg BID VARENICLINE TARTRATE 13594366091 No Longer Active Ian Valdez MD Active ZITHROMAX 1 GM PACK DIRECTED AZITHROMYCIN 42563316098 No Longer Active Ian Valdez MD Active AURALGAN 1.4-5.5 % SOLN BENZOCAINE-ANTIPYRINE 76789001830 No Longer Active Ian Valdez MD Active PREDNISONE 20 MG TAB 3 tabs daily for 3 days, 2 tab daily for 3 days, 1 tab daily for 2 days, then 1/2 tab dialy for 2 days PREDNISONE 81828432220 No Longer Active Ian Valdez MD Active SIMVASTATIN 40 MG TABS 1 TABLET PO Q HS SIMVASTATIN 81243970794 Active Ian Valdez MD Active SIMVASTATIN 80 MG TABS Take one by mouth daily SIMVASTATIN 93163414314 No Longer Active Ian Valdez MD Active PREDNISONE 20 MG TAB 2 tabs daily for 3 days, 1 tab daily for 3 days, 1/2 tab daily for 2 days PREDNISONE 68248204328 No Longer Active Ian Valdez MD Active ZITHROMAX 250 MG TAB 2 po today, then 1 po q days 2-5 AZITHROMYCIN 85542787148 No Longer Active Ian Valdez MD Active TRAZODONE HCL 100 MG TABS 2 TABS PO Q HS TRAZODONE HCL 25364796719 Active Ian Valdez MD Active ZITHROMAX 250 MG TAB 2 po today, then 1 po q days 2-5 AZITHROMYCIN 79876193573 No Longer Active Ian Valdez MD Active SIMVASTATIN 80 MG TABS Take one by mouth daily SIMVASTATIN 80 MG TABS 139423 SIMVASTATIN Inactive AURALGAN 1.4-5.5 % SOLN AURALGAN 1.4-5.5 % SOLN BENZOCAINE-ANTIPYRINE Inactive ZITHROMAX 1 GM PACK DIRECTED ZITHROMAX 1 GM PACK 854146 AZITHROMYCIN Inactive CHANTIX STARTING MONTH REBEKAH 0.5 MG X 11 & 1 MG X 42 TABS 0.5mg daily for 3 days , then 0.5mg BID for 4 days, then 1mg BID CHANTIX STARTING MONTH REBEKAH 0.5 MG X 11 & 1 MG X 42 TABS VARENICLINE TARTRATE Inactive ZITHROMAX 1 GM PACK DIRECTED ZITHROMAX 1 GM PACK 210183 AZITHROMYCIN Inactive MOBIC 7.5 MG TABS 1 tablet by mouthonce a day MOBIC 7.5 MG TABS 405730 MELOXICAM Inactive KLONOPIN 0.5 MG TABS 1 TABLET PO PRN KLONOPIN 0.5 MG TABS 684313 CLONAZEPAM Inactive CIPRO 500 MG TAB 1 tablet by mouth twice daily CIPRO 500 MG TAB 065742 CIPROFLOXACIN HCL Inactive AZITHROMYCIN 500 MG TABS 1 PO q day x 6 days AZITHROMYCIN 500 MG TABS 0207266 AZITHROMYCIN Inactive CYCLOBENZAPRINE HCL 10 MG TABS 1 PO q 8 hrs PRN muscle spasm 2012 CYCLOBENZAPRINE HCL 10 MG TABS 715170 CYCLOBENZAPRINE HCL Inactive METFORMIN HCL 500 MG [...] bid prn anxiety. XANAX 0.25 MG TABS 697672 ALPRAZOLAM Inactive LAMISIL AT 1 % CREA apply bid to rash LAMISIL AT 1 % CREA 328956 TERBINAFINE HCL Inactive TOPAMAX 25 MG TABS 1 tab po qhs x 1 week, then take 2 tabs po qhs TOPAMAX 25 MG TABS 047128 TOPIRAMATE Inactive TERBINAFINE HCL 1 % CREA Apply bid to rash TERBINAFINE HCL 1 % CREA 151239 TERBINAFINE HCL Inactive ZITHROMAX 250 MG TAB 2 po today, then 1 po q days 2-5 ZITHROMAX 250 MG TAB 3791182 AZITHROMYCIN Inactive ZITHROMAX 250 MG TAB 2 po today, then 1 po q days 2-5 ZITHROMAX 250 MG TAB 2288213 AZITHROMYCIN Inactive PREDNISONE 20 MG TAB 2 tabs daily for 3 days, 1 tab daily for 3 days, 1/2 tab daily for 2 days PREDNISONE 20 MG TAB 534734 PREDNISONE Inactive PREDNISONE 20 MG TAB 3 tabs daily for 3 days, 2 tab daily for 3 days, 1 tab daily for 2 days, then 1/2 tab dialy for 2 days PREDNISONE 20 MG TAB 670186 PREDNISONE Inactive OMEPRAZOLE 20 MG CPDR 1 tablet by mouth daily OMEPRAZOLE 20 MG CPDR 282864 OMEPRAZOLE Inactive PREDNISONE 20 MG TABS 3 qd x 2d, 2 qd x 2d, 1 qd x 2d, 1/2 qd x 2d PREDNISONE 20 MG TABS 139373 PREDNISONE Inactive TERBINAFINE HCL 250 MG TABS 1 qDay TERBINAFINE HCL 250 MG TABS 947694 TERBINAFINE HCL Inactive DOXYCYCLINE HYCLATE 100 MG CAP 1 cap by mouth twice daily DOXYCYCLINE HYCLATE 100 MG CAP 1461615 DOXYCYCLINE HYCLATE Inactive MEDROL (REBEKAH) 4 MG [...] and acellular pertussis vaccine, adsorbed), booster Boostrix [[id number]] tetanus toxoid, reduced diphtheria toxoid, and acellular [...] 1.44 m[iU]/mL 0.36-3.74 cholesterol, serum 144 mg/dL 845-314 9826/11/19 triglyceride, serum, fasting 172 mg/dL 30-200 HDL cholesterol, serum 30 mg/dL 32-96 LDL cholesterol, serum 80 mg/dL 0-130 sodium, serum 137 mmol/L 768-900 3747/11/19 potassium, serum 4.1 mmol/L 3.5-5.2 chloride, serum 100 mmol/L 98-107 carbon dioxide, venous blood 26.9 mmol/L 21.0-32.0 blood glucose 84 mg/dL 65-110 urea nitrogen, blood 11 mg/dL 7-18 creatinine, serum 0.90 mg/dL 0.60-1.30 alanine aminotransferase (SGPT), serum 23 U/L 12-78 aspartate aminotransferase (SGOT), serum 17 U/L 15-37 calcium, serum 9.5 mg/dL 8.5-10.1 bilirubin, serum, total 0.70 mg/dL 0.00-1.00 Lab Report: HIV-1/2 Agn/Ritu/16408, Chlamydia/GC APTIMA/71285 - Lab chlamydia DNA probe NOT DETECTED NOT DETECTED Lab Report: HIV-1/2 Agn/Ritu/31478, Chlamydia/GC APTIMA/32905 - Microbiology Neisseria gonorrhoeae DNA probe NOT DETECTED NOT DETECTED Lab Report: TONY INFLUENZA A/B - Toxicology rapid flu test Negative Negative;Positive Office Visit: wellness exam for insurance/ diabetes check - Chemistry cholesterol, target level 200 mg/dL LDL target level 100 mg/dL HDL cholesterol, serum, target level 40 mg/dL triglyceride, target level 150 mg/dL Encounters Code Encounter Date Provider Facility CPT-90592 Level 3 Est. Patient 17:03:54 CDT Carlos Mccormack MD [facility] CPT-57716 Level 3 Est. Patient 20:15:16 CDT Ian Valdez MD [facility] CPT-05000 Level 3 Est. Patient 13:49:34 CDT Ian Valdez MD [facility] CPT-40654 Level 3 Est. Patient 15:50:27 RAVELER Najma Vaughn APRN [facility] CPT-23909 Level 4 Est. Patient 21:20:00 RAVELER Ian Valdez MD [facility] CPT-17809 Level 3 Est. Patient 15:32:41 RAVELER Juan Smith MD [facility] CPT-57363 Level 3 Est. Patient 14:45:01 CDT Eva Ferrara MD PhD [facility] CPT-22088 Level 3 Est. Patient 14:54:10 CDT Ian Valdez MD [facility] CPT-16769 Level 4 Est. Patient 20:36:52 CDT Ian Valdez MD [facility] CPT-49649 Level 4 Est. Patient 11:14:30 RAVELER Ian Valdez MD [facility] CPT-56299 Level 3 Est. Patient 19:08:34 RAVELER Ian Valdez MD [facility] CPT-27280 Level 3 Est. Patient 13:17:39 RAVELER Ian Valdez MD [facility] CPT-92391 Level 4 Est. Patient 18:56:10 CDT Ian Valdez MD [facility]-70849 Level 4 Est. Patient 16:55:56 CDT Ian Valdez MD [facility]-79908 Level 3 Est. Patient 11:27:07 CDT Ian Valdez MD [facility] CPT-19099 Level 3 Est. Patient 15:17:44 CDT Law Rosas [facility] CPT-04365 Level 4 Est. Patient 15:13:53 CDT Wellington Muniz [facility] CPT-67836 Level 3 Est. Patient 14:25:12 RAVELER Ian Valdez MD [facility]-02816 Level 3 Est. Patient 10:24:46 CDT Ian Valdez MD [facility] CPT-18749 Level 3 Est. Patient 15:34:19 CDT Ian Valdez MD [facility] CPT-69174 Level 3 Est. Patient 14:22:41 CDT Ian Valdez MD [facility] CPT-74032 Level 3 Est. Patient 15:07:22 RAVELER Ian Valdez MD [facility] CPT-25419 Level 3 New Patient 09:06:43 RAVELER Ian Valdez MD [facility] CPT-27725 Level 3 Est. Patient 15:09:00 RAVELER Ian Valdez MD [facility] Procedures Code Procedure Name Date Entry Date Standard Description CPT-15729 Abd compl w upright 17:11:01 CDT CPT-OV Office Visit 16:24:22 CDT CPT-OV Office Visit 15:15:29 RAVELER CPT-OV Office Visit 15:49:26 RAVELER CPT-J1885 Toradol 60 mg (Ketorolac) 15:37:32 CDT CPT-67392 Abx/Therapy Injection 15:37:32 CDT CPT-J1885 Toradol 60 mg (Ketorolac) 14:45:01 CDT CPT-OV Office Visit 15:19:52 CDT CPT-OV Office Visit 10:41:01 CDT CPT-62494 Core biop breast wo imaging 16:50:06 CDT CPT-OV Office Visit 16:50:05 CDT CPT-97580 UHCG (floor use only) 13:39:36 CDT CPT-54231 Nexplanon Placement 10:11:48 CDT CPT-J7307 Nexplanon (Implant) 10:11:48 CDT CPT-OV Office Visit 09:54:18 CDT CPT-80279 EKG Trac and Interp 16:50:19 CDT CPT-14779 Venipuncture Draw Fee 15:06:08 CDT CPT-J2930 Solu Medrol 125 mg (Methyl Prednisolone Sodium Succinate) 12:44:46 CDT CPT-J1055 Depo Provera 150 mg (Medroxyprogesterone) 12:44:46 CDT CPT-84208 Abx/Therapy Injection 12:44:46 CDT CPT-J1055 Depo Provera 150 mg (Medroxyprogesterone) 14:28:41 CDT CPT-J2930 Solu Medrol 125 mg (Methyl Prednisolone Sodium Succinate) 14:22:41 CDT CPT-28307 Administration single or combination vaccine inc oral 10 :08:06 CDT CPT-50268 Tdap 10:08:06 CDT CPT-G0402 Wl To Medicare Ex 22:17:30 CDT CPT-17327 Venipuncture Draw Fee 10:33:07 RAVELER CPT-07935 Venipuncture Draw Fee 10:17:37 RAVELER CPT-G0403 EKG [facility] To Medicare 22:17:30 CDT
--- OUTSIDE RECORDS SUMMARY | 2018-07-17 21:20 | XMS REPORT | Clinical Summary ---
Author Author Admin, ARIAN Organization [facility] Address Unknown Phone Unavailable Allergies, Adverse Reactions, [...] po BID PRN Constipation 10/07 MAGNESIUM CITRATE 14401342487 Active Ian Valdez MD Active DICLOFENAC SODIUM 50 MG ORAL TBEC TID PRN DICLOFENAC SODIUM 88367448609 Active Ian Valdez MD Active BUSPIRONE HCL 7.5 MG ORAL TABS 1 TAB PO BID PRN ANXIETY BUSPIRONE HCL 22044911756 Active Herminia Bear Active MEDROL (REBEKAH) 4 MG TABS 6 tabs on day 1, 5 tabs on day 2, 4 tabs on day 3, 3 tabs on day 4, 2 tabs on day 5, 1 tab on day 6 METHYLPREDNISOLONE 00844315799 No Longer Active Herminia Chema Active MELOXICAM 15 MG TABS 1 po q day for pain with food MELOXICAM 16080983441 Active Ian Valdez MD Active DOXYCYCLINE HYCLATE 100 MG CAP 1 cap by mouth twice daily DOXYCYCLINE HYCLATE 99329076669 No Longer Active Najma Vaughn SAMI Active MULTIVITAMINS CAPS 1 tablet daily MULTIPLE VITAMIN 16088502066 Active Juan Smith MD Active CYCLOBENZAPRINE HCL 10 MG TABS 1/2 - 1 tab by mouth three times daily if needed for spasms/pain CYCLOBENZAPRINE HCL 95971643981 Active Ian Valdez MD Active GLUCOPHAGE 500 MG TABS 1 tab BID with morning and night meals METFORMIN HCL 80471690225 Active Eva Ferrara MD PhD Active PROGESTERONE MICRONIZED 100 MG CAPS 2 caps daily day 16 thru 25 of cycle 2013 PROGESTERONE MICRONIZED 09790708500 Active Eva Ferrara MD PhD Active TERBINAFINE HCL 1 % CREA Apply bid to rash TERBINAFINE HCL 10049915195 No Longer Active Eva Ferrara MD PhD Active TOPAMAX 25 MG TABS 1 tab po qhs x 1 week, then take 2 tabs po qhs TOPIRAMATE 17009422106 No Longer Active Thom Gilbert MD Active ULTRAM 50 MG TAB take 1 tab po q6hrs prn pain TRAMADOL HCL 96710312245 Active Ian Valdez MD Active LAMISIL AT 1 % CREA apply bid to rash TERBINAFINE HCL 17882598112 No Longer Active Thom Gilbert MD Active TERBINAFINE HCL 250 MG TABS 1 qDay TERBINAFINE HCL 87042741500 No Longer Active Ian Valdez MD Active XANAX 0.25 MG TABS take 1 tab po bid prn anxiety. ALPRAZOLAM 95625643991 No Longer Active Ian Valdez MD Active FISH OIL 1000 MG CAPS 2 caps PO once daily at bedtime OMEGA-3 FATTY ACIDS 28410846886 No Longer Active Ian Valdez MD Active KLOR-CON M20 20 MEQ CR-TABS take 1 tab po qday with lasix POTASSIUM CHLORIDE GALILEO CR 13125143461 Active Ian Valdez MD Active LASIX 20 MG TAB 1 tablet by mouth daily prn swelling FUROSEMIDE 66371563947 Active Ian Valdez MD Active FLONASE 50 MCG/ACT SUSP 2 puffs in each nostril once daily at bedtime FLUTICASONE PROPIONATE 07738995193 Active Ian Valdez MD Active CVS MELATONIN 3 MG TABS 2 tabs PO at bedtime MELATONIN 26504692360 Active Ian Valdez MD Active PULMICORT FLEXHALER 180 MCG/ACT AEPB 2 INH BID BUDESONIDE 82661128508 No Longer Active Ian Valdez MD Active METFORMIN HCL 500 MG TB24 1 TAB PO Q HS METFORMIN HCL 69940424311 No Longer Active Ian Valdez MD Active CYCLOBENZAPRINE HCL 10 MG TABS 1 PO q 8 hrs PRN muscle spasm 2012 CYCLOBENZAPRINE HCL 28500420885 No Longer Active Ian Valdez MD Active AZITHROMYCIN 500 MG TABS 1 PO q day x 6 days AZITHROMYCIN 49611783125 No Longer Active Ian Valdez MD Active CIPRO 500 MG TAB 1 tablet by mouth twice daily CIPROFLOXACIN HCL 42266462760 No Longer Active Ian Valdez MD Active PREDNISONE 20 MG TABS 3 qd x 2d, 2 qd x 2d, 1 qd x 2d, 1/2 qd x 2d PREDNISONE 11155702442 No Longer Active Law FIGUEROA Active CELEXA 40 MG TABS 2 PO DAILY CITALOPRAM HYDROBROMIDE 81116543414 Active Ian Valdez MD Active OMEPRAZOLE 20 MG CPDR 1 tablet by mouth daily OMEPRAZOLE 63159634345 No Longer Active [place] FIGUEROA Active KLONOPIN 0.5 MG TABS 1 TABLET PO PRN CLONAZEPAM 32033466260 No Longer Active Wellington FIGUEROA Active MOBIC 7.5 MG TABS 1 tablet by mouthonce a day MELOXICAM 24537264449 No Longer Active Wellington FIGUEROA Active ZITHROMAX 1 GM PACK DIRECTED AZITHROMYCIN 54519496432 No Longer Active Ian Valdez MD Active ALBUTEROL SULFATE 0.083 % NEBU SOLN one vial per nebulizer every 4-6 hours as needed ALBUTEROL SULFATE 38287871777 Active Ian Valdez MD Active CHANTIX STARTING MONTH REBEKAH 0.5 MG X 11 & 1 MG X 42 TABS 0.5mg daily for 3 days , then 0.5mg BID for 4 days, then 1mg BID VARENICLINE TARTRATE 88681827861 No Longer Active Ian Valdez MD Active ZITHROMAX 1 GM PACK DIRECTED AZITHROMYCIN 55087012064 No Longer Active Ian Valdez MD Active AURALGAN 1.4-5.5 % SOLN BENZOCAINE-ANTIPYRINE 25067008959 No Longer Active Ian Valdez MD Active PREDNISONE 20 MG TAB 3 tabs daily for 3 days, 2 tab daily for 3 days, 1 tab daily for 2 days, then 1/2 tab dialy for 2 days PREDNISONE 59203032323 No Longer Active Ian Valdez MD Active SIMVASTATIN 40 MG TABS 1 TABLET PO Q HS SIMVASTATIN 19812384811 Active Ian Valdez MD Active SIMVASTATIN 80 MG TABS Take one by mouth daily SIMVASTATIN 62971652174 No Longer Active Ian Valdez MD Active PREDNISONE 20 MG TAB 2 tabs daily for 3 days, 1 tab daily for 3 days, 1/2 tab daily for 2 days PREDNISONE 36306032222 No Longer Active Ian Vladez MD Active ZITHROMAX 250 MG TAB 2 po today, then 1 po q days 2-5 AZITHROMYCIN 11644057010 No Longer Active Ian Valdez MD Active TRAZODONE HCL 100 MG TABS 2 TABS PO Q HS TRAZODONE HCL 63938594318 Active Ian Valdez MD Active ZITHROMAX 250 MG TAB 2 po today, then 1 po q days 2-5 AZITHROMYCIN 11646202764 No Longer Active Ian Valdez MD Active SIMVASTATIN 80 MG TABS Take one by mouth daily SIMVASTATIN 80 MG TABS 598740 SIMVASTATIN Inactive AURALGAN 1.4-5.5 % SOLN AURALGAN 1.4-5.5 % SOLN BENZOCAINE-ANTIPYRINE Inactive ZITHROMAX 1 GM PACK DIRECTED ZITHROMAX 1 GM PACK 955089 AZITHROMYCIN Inactive CHANTIX STARTING MONTH REBEKAH 0.5 MG X 11 & 1 MG X 42 TABS 0.5mg daily for 3 days , then 0.5mg BID for 4 days, then 1mg BID CHANTIX STARTING MONTH REBEKAH 0.5 MG X 11 & 1 MG X 42 TABS VARENICLINE TARTRATE Inactive ZITHROMAX 1 GM PACK DIRECTED ZITHROMAX 1 GM PACK 538810 AZITHROMYCIN Inactive MOBIC 7.5 MG TABS 1 tablet by mouthonce a day MOBIC 7.5 MG TABS 496559 MELOXICAM Inactive KLONOPIN 0.5 MG TABS 1 TABLET PO PRN KLONOPIN 0.5 MG TABS 298014 CLONAZEPAM Inactive CIPRO 500 MG TAB 1 tablet by mouth twice daily CIPRO 500 MG TAB 991285 CIPROFLOXACIN HCL Inactive AZITHROMYCIN 500 MG TABS 1 PO q day x 6 days AZITHROMYCIN 500 MG TABS 6541160 AZITHROMYCIN Inactive CYCLOBENZAPRINE HCL 10 MG TABS 1 PO q 8 hrs PRN muscle spasm 2012 CYCLOBENZAPRINE HCL 10 MG TABS 190071 CYCLOBENZAPRINE HCL Inactive METFORMIN HCL 500 MG [...] bid prn anxiety. XANAX 0.25 MG TABS 617592 ALPRAZOLAM Inactive LAMISIL AT 1 % CREA apply bid to rash LAMISIL AT 1 % CREA 572668 TERBINAFINE HCL Inactive TOPAMAX 25 MG TABS 1 tab po qhs x 1 week, then take 2 tabs po qhs TOPAMAX 25 MG TABS 119039 TOPIRAMATE Inactive TERBINAFINE HCL 1 % CREA Apply bid to rash TERBINAFINE HCL 1 % CREA 146831 TERBINAFINE HCL Inactive ZITHROMAX 250 MG TAB 2 po today, then 1 po q days 2-5 ZITHROMAX 250 MG TAB 8043803 AZITHROMYCIN Inactive ZITHROMAX 250 MG TAB 2 po today, then 1 po q days 2-5 ZITHROMAX 250 MG TAB 7302693 AZITHROMYCIN Inactive PREDNISONE 20 MG TAB 2 tabs daily for 3 days, 1 tab daily for 3 days, 1/2 tab daily for 2 days PREDNISONE 20 MG TAB 074618 PREDNISONE Inactive PREDNISONE 20 MG TAB 3 tabs daily for 3 days, 2 tab daily for 3 days, 1 tab daily for 2 days, then 1/2 tab dialy for 2 days PREDNISONE 20 MG TAB 284507 PREDNISONE Inactive OMEPRAZOLE 20 MG CPDR 1 tablet by mouth daily OMEPRAZOLE 20 MG CPDR 647541 OMEPRAZOLE Inactive PREDNISONE 20 MG TABS 3 qd x 2d, 2 qd x 2d, 1 qd x 2d, 1/2 qd x 2d PREDNISONE 20 MG TABS 080253 PREDNISONE Inactive TERBINAFINE HCL 250 MG TABS 1 qDay TERBINAFINE HCL 250 MG TABS 096754 TERBINAFINE HCL Inactive DOXYCYCLINE HYCLATE 100 MG CAP 1 cap by mouth twice daily DOXYCYCLINE HYCLATE 100 MG CAP 9000222 DOXYCYCLINE HYCLATE Inactive MEDROL (REBEKAH) 4 MG [...] and acellular pertussis vaccine, adsorbed), booster Boostrix [[id number]] tetanus toxoid, reduced diphtheria toxoid, and acellular [...] 1.44 m[iU]/mL 0.36-3.74 cholesterol, serum 144 mg/dL 188-206 9264/11/19 triglyceride, serum, fasting 172 mg/dL 30-200 HDL cholesterol, serum 30 mg/dL 32-96 LDL cholesterol, serum 80 mg/dL 0-130 sodium, serum 137 mmol/L 449-037 0041/11/19 potassium, serum 4.1 mmol/L 3.5-5.2 chloride, serum 100 mmol/L 98-107 carbon dioxide, venous blood 26.9 mmol/L 21.0-32.0 blood glucose 84 mg/dL 65-110 urea nitrogen, blood 11 mg/dL 7-18 creatinine, serum 0.90 mg/dL 0.60-1.30 alanine aminotransferase (SGPT), serum 23 U/L 12-78 aspartate aminotransferase (SGOT), serum 17 U/L 15-37 calcium, serum 9.5 mg/dL 8.5-10.1 bilirubin, serum, total 0.70 mg/dL 0.00-1.00 Lab Report: HIV-1/2 Agn/Ritu/99117, Chlamydia/GC APTIMA/48055 - Lab chlamydia DNA probe NOT DETECTED NOT DETECTED Lab Report: HIV-1/2 Agn/Ritu/10823, Chlamydia/GC APTIMA/84700 - Microbiology Neisseria gonorrhoeae DNA probe NOT DETECTED NOT DETECTED Lab Report: TONY INFLUENZA A/B - Toxicology rapid flu test Negative Negative;Positive Lab Report: [facility] - Chemistry human chorionic gonadotropin, urine, qualitative (urine test) Negative Negative Office Visit: wellness exam for insurance/ diabetes check - Chemistry cholesterol, target level 200 mg/dL LDL target level 100 mg/dL HDL cholesterol, serum, target level 40 mg/dL triglyceride, target level 150 mg/dL Encounters Code Encounter Date Provider Facility CPT-96454 Level 3 Est. Patient 17:03:54 CDT Carlos Mccormack MD [facility] CPT-92614 Level 3 Est. Patient 20:15:16 CDT Ian Valdez MD [facility] CPT-58634 Level 3 Est. Patient 13:49:34 CDT Ian Valdez MD [facility] CPT-03697 Level 3 Est. Patient 15:50:27 HOUSING PROPERTY MANAGER Najma Vaughn APRN [facility] CPT-34436 Level 4 Est. Patient 21:20:00 HOUSING PROPERTY MANAGER Ian Valdez MD [facility] CPT-83374 Level 3 Est. Patient 15:32:41 HOUSING PROPERTY MANAGER Juan Smith MD [facility] CPT-80972 Level 3 Est. Patient 14:45:01 CDT Eva Ferrara MD PhD [facility] CPT-91459 Level 3 Est. Patient 14:54:10 CDT Ian Valdez MD [facility] CPT-28232 Level 4 Est. Patient 20:36:52 CDT Ian Valdez MD [facility] CPT-42453 Level 4 Est. Patient 11:14:30 HOUSING PROPERTY MANAGER Ian Valdez MD [facility] CPT-53468 Level 3 Est. Patient 19:08:34 HOUSING PROPERTY MANAGER Ian Valdez MD [facility] CPT-69124 Level 3 Est. Patient 13:17:39 HOUSING PROPERTY MANAGER Ian Valdez MD [facility] CPT-16418 Level 4 Est. Patient 18:56:10 CDT Ian Valdez MD [facility] CPT-85679 Level 4 Est. Patient 16:55:56 CDT Ian Valdez MD [facility] CPT-00282 Level 3 Est. Patient 11:27:07 CDT Ian Valdez MD [facility] CPT-18729 Level 3 Est. Patient 15:17:44 CDT Law Rosas [facility] CPT-94266 Level 4 Est. Patient 15:13:53 CDT Wellington Muniz [facility] CPT-96018 Level 3 Est. Patient 14:25:12 HOUSING PROPERTY MANAGER Ian Valdez MD [facility] CPT-92374 Level 3 Est. Patient 10:24:46 CDT Ian Valdez MD [facility] CPT-37892 Level 3 Est. Patient 15:34:19 CDT Ian Valdez MD [facility] CPT-79071 Level 3 Est. Patient 14:22:41 CDT Ian Valdez MD [facility] CPT-30891 Level 3 Est. Patient 15:07:22 HOUSING PROPERTY MANAGER Ian Valdez MD [facility] CPT-72071 Level 3 New Patient 09:06:43 HOUSING PROPERTY MANAGER Ian Valdez MD [facility] CPT-54577 Level 3 Est. Patient 15:09:00 HOUSING PROPERTY MANAGER Ian Valdez MD [facility] Procedures Code Procedure Name Date Entry Date Standard Description CPT-J1050 Depo Provera 150 mg (Medroxyprogesterone) 15:27:21 CDT CPT-48436 Abx/Therapy Injection 15:27:21 CDT CPT-44080 Abd compl w upright 17:11:01 CDT CPT-OV Office Visit 16:24:22 CDT CPT-OV Office Visit 15:15:29 HOUSING PROPERTY MANAGER CPT-OV Office Visit 15:49:26 HOUSING PROPERTY MANAGER CPT-J1885 Toradol 60 mg (Ketorolac) 15:37:32 CDT CPT-78806 Abx/Therapy Injection 15:37:32 CDT CPT-J1885 Toradol 60 mg (Ketorolac) 14:45:01 CDT CPT-OV Office Visit 15:19:52 CDT CPT-OV Office Visit 10:41:01 CDT CPT-00402 Core biop breast wo imaging 16:50:06 CDT CPT-OV Office Visit 16:50:05 CDT CPT-84540 UHCG (floor use only) 13:39:36 CDT CPT-39753 Nexplanon Placement 10:11:48 CDT CPT-J7307 Nexplanon (Implant) 10:11:48 CDT CPT-OV Office Visit 09:54:18 CDT CPT-18538 EKG Trac and Interp 16:50:19 CDT CPT-38093 Venipuncture Draw Fee 15:06:08 CDT CPT-J2930 Solu Medrol 125 mg (Methyl Prednisolone Sodium Succinate) 12:44:46 CDT CPT-J1055 Depo Provera 150 mg (Medroxyprogesterone) 12:44:46 CDT CPT-79604 Abx/Therapy Injection 12:44:46 CDT CPT-J1055 Depo Provera 150 mg (Medroxyprogesterone) 14:28:41 CDT CPT-J2930 Solu Medrol 125 mg (Methyl Prednisolone Sodium Succinate) 14:22:41 CDT CPT-62409 Administration single or combination vaccine inc oral 10 :08:06 CDT CPT-39681 Tdap 10:08:06 CDT CPT-G0402 Wlcm To Medicare Ex 22:17:30 CDT CPT-51763 Venipuncture Draw Fee 10:33:07 HOUSING PROPERTY MANAGER CPT-31146 Venipuncture Draw Fee 10:17:37 HOUSING PROPERTY MANAGER CPT-G0403 EKG Wlc To Medicare 22:17:30 CDT
[2018-07-17 21:21] LABS: BASOPHILS % (AUTO) 0 % (0-10); EOSINOPHILS # (AUTO) 0.4 10^3/uL (0.0-0.3); EOSINOPHILS % (AUTO) 3 % (0-10); HEMATOCRIT 43 % (35-52); HEMOGLOBIN 14.9 G/DL (11.5-16.0); LYMPHOCYTES # (AUTO) 6.1 X 10^3 (1.0-4.0); LYMPHOCYTES % (AUTO) 43 % (12-44); MEAN CORPUSCULAR HEMOGLOBIN 32 PG (25-34); MEAN CORPUSCULAR HGB CONC 35 G/DL (32-36); MEAN CORPUSCULAR VOLUME 91 FL (80-99); MEAN PLATELET VOLUME 9.2 FL (7.4-10.4); MONOCYTES # (AUTO) 0.9 X 10^3 (0.0-1.0); MONOCYTES % (AUTO) 6 % (0-12); NEUTROPHILS # (AUTO) 6.7 X 10^3 (1.8-7.8); NEUTROPHILS % (AUTO) 47 % (42-75); PLATELET COUNT 326 10^3/uL (130-400); RED CELL DISTRIBUTION WIDTH 12.3 % (10.0-14.5); WHITE BLOOD COUNT 14.2 10^3/uL (4.3-11.0)
[2018-07-17 21:22] LABS: BASOPHILS # (AUTO) 0.1 10^3/uL (0.0-0.1)
--- OUTSIDE RECORDS SUMMARY | 2018-07-17 21:22 | XMS REPORT | Clinical Summary ---
Author Author Admin, ARIAN Organization [facility] Address Unknown Phone Unavailable Allergies, Adverse Reactions, [...] PO q 8 hrs PRN pain OXYCODONE-ACETAMINOPHEN 59333678805 Active Law FIGUEROA Active MINOCYCLINE HCL 100 MG CAP 1 TAB PO DAILY MINOCYCLINE HCL 61488077117 Active Herminia Bear Active BENZACLIN 1-5 % EXT GEL apply to face BID for acne. CLINDAMYCIN PHOS-BENZOYL PEROX 70791816761 No Longer Active Herminia Bear Active HYDROCODONE-ACETAMINOPHEN 5-325 MG TABS 1-2 tabs by mouth every 4- 6 hours as needed HYDROCODONE-ACETAMINOPHEN 14420009516 Active Ian Valdez MD Active CLINDAMYCIN HCL 150 MG CAPS Take 2 capsules by mouth every 8hrs for 10 days CLINDAMYCIN HCL 16709391871 Active Ian Valdez MD Active DICLOFENAC SODIUM 50 MG TBEC 1 tablet by mouth three times daily as needed DICLOFENAC SODIUM 28831001537 Active Ian Valdez MD Active MAGNESIUM CITRATE 1.745 GM/30ML ORAL SOLN 150ml po BID PRN Constipation 10/07 MAGNESIUM CITRATE 96991286993 Active Ian Valdez MD Active BUSPIRONE HCL 7.5 MG ORAL TABS 1 TAB PO BID PRN ANXIETY BUSPIRONE HCL 09643074593 Active Ian Valdez MD Active MEDROL (REBEKAH) 4 MG TABS 6 tabs on day 1, 5 tabs on day 2, 4 tabs on day 3, 3 tabs on day 4, 2 tabs on day 5, 1 tab on day 6 METHYLPREDNISOLONE 34049683022 No Longer Active Herminia Bear Active MELOXICAM 15 MG TABS 1 po q day for pain with food MELOXICAM 74962534417 Active Ian Valdez MD Active DOXYCYCLINE HYCLATE 100 MG CAP 1 cap by mouth twice daily DOXYCYCLINE HYCLATE 67980882135 No Longer Active Najmabakari Vaughn APRN Active MULTIVITAMINS CAPS 1 tablet daily MULTIPLE VITAMIN 59866158434 Active Juan Smith MD Active CYCLOBENZAPRINE HCL 10 MG TABS 1/2 - 1 tab by mouth three times daily if needed for spasms/pain CYCLOBENZAPRINE HCL 62126410079 Active Ian Valdez MD Active GLUCOPHAGE 500 MG TABS 1 tab BID with morning and night meals METFORMIN HCL 13533071320 Active Eva Ferrara MD PhD Active PROGESTERONE MICRONIZED 100 MG CAPS 2 caps daily day 16 thru 25 of cycle 2013 PROGESTERONE MICRONIZED 00650437910 Active Eva Ferrara MD PhD Active TERBINAFINE HCL 1 % CREA Apply bid to rash TERBINAFINE HCL 57986799133 No Longer Active Eva Ferrara MD PhD Active TOPAMAX 25 MG TABS 1 tab po qhs x 1 week, then take 2 tabs po qhs TOPIRAMATE 08574167205 No Longer Active Thom Gilbert MD Active ULTRAM 50 MG TAB take 1 tab po q6hrs prn pain TRAMADOL HCL 31811518740 Active Ian Valdez MD Active LAMISIL AT 1 % CREA apply bid to rash TERBINAFINE HCL 52232154068 No Longer Active Thom Gilbert MD Active TERBINAFINE HCL 250 MG TABS 1 qDay TERBINAFINE HCL 47713687490 No Longer Active Ian Valdez MD Active XANAX 0.25 MG TABS take 1 tab po bid prn anxiety. ALPRAZOLAM 58660291755 No Longer Active Ian Valdez MD Active FISH OIL 1000 MG CAPS 2 caps PO once daily at bedtime OMEGA-3 FATTY ACIDS 16089511502 No Longer Active Ian Valdez MD Active KLOR-CON M20 20 MEQ CR-TABS take 1 tab po qday with lasix POTASSIUM CHLORIDE GALILEO CR 54016738401 Active Ian Valdez MD Active LASIX 20 MG TAB 1 tablet by mouth daily prn swelling FUROSEMIDE 14721525341 Active Ian Valdez MD Active FLONASE 50 MCG/ACT SUSP 2 puffs in each nostril once daily at bedtime FLUTICASONE PROPIONATE 04965655849 Active Ian Valdez MD Active [facility] MELATONIN 3 MG TABS 2 tabs PO at bedtime MELATONIN 81570662930 Active Ian Valdez MD Active PULMICORT FLEXHALER 180 MCG/ACT AEPB 2 INH BID BUDESONIDE 47211866915 No Longer Active Ian Valdez MD Active METFORMIN HCL 500 MG TB24 1 TAB PO Q HS METFORMIN HCL 38799183847 No Longer Active Ian Valdez MD Active CYCLOBENZAPRINE HCL 10 MG TABS 1 PO q 8 hrs PRN muscle spasm 2012 CYCLOBENZAPRINE HCL 62125385803 No Longer Active Ian Valdez MD Active AZITHROMYCIN 500 MG TABS 1 PO q day x 6 days AZITHROMYCIN 35563987550 No Longer Active Ian Valdez MD Active CIPRO 500 MG TAB 1 tablet by mouth twice daily CIPROFLOXACIN HCL 58993515348 No Longer Active Ian Valdez MD Active PREDNISONE 20 MG TABS 3 qd x 2d, 2 qd x 2d, 1 qd x 2d, 1/2 qd x 2d PREDNISONE 60349124046 No Longer Active Law FIGUEROA Active CELEXA 40 MG TABS 2 PO DAILY CITALOPRAM HYDROBROMIDE 38371236406 Active Ian Valdez MD Active OMEPRAZOLE 20 MG CPDR 1 tablet by mouth daily OMEPRAZOLE 86557551163 No Longer Active [place] FIGUEROA Active KLONOPIN 0.5 MG TABS 1 TABLET PO PRN CLONAZEPAM 91119881409 No Longer Active [place] FIGUEROA Active MOBIC 7.5 MG TABS 1 tablet by mouthonce a day MELOXICAM 49373488907 No Longer Active [place] FIGUEROA Active ZITHROMAX 1 GM PACK DIRECTED AZITHROMYCIN 96637287442 No Longer Active Ian Valdez MD Active ALBUTEROL SULFATE 0.083 % NEBU SOLN one vial per nebulizer every 4-6 hours as needed ALBUTEROL SULFATE 04233104499 Active Ian Valdez MD Active CHANTIX STARTING MONTH REBEKAH 0.5 MG X 11 & 1 MG X 42 TABS 0.5mg daily for 3 days , then 0.5mg BID for 4 days, then 1mg BID VARENICLINE TARTRATE 27571800682 No Longer Active Ian Valdez MD Active ZITHROMAX 1 GM PACK DIRECTED AZITHROMYCIN 47032628459 No Longer Active aIn Valdez MD Active AURALGAN 1.4-5.5 % SOLN BENZOCAINE-ANTIPYRINE 34497908058 No Longer Active Ian Valdez MD Active PREDNISONE 20 MG TAB 3 tabs daily for 3 days, 2 tab daily for 3 days, 1 tab daily for 2 days, then 1/2 tab dialy for 2 days PREDNISONE 64097804395 No Longer Active Ian Valdez MD Active SIMVASTATIN 40 MG TABS 1 TABLET PO Q HS SIMVASTATIN 89371683758 Active Ian Valdez MD Active SIMVASTATIN 80 MG TABS Take one by mouth daily SIMVASTATIN 64048632579 No Longer Active Ian Valdez MD Active PREDNISONE 20 MG TAB 2 tabs daily for 3 days, 1 tab daily for 3 days, 1/2 tab daily for 2 days PREDNISONE 42073626944 No Longer Active Ian Valdez MD Active ZITHROMAX 250 MG TAB 2 po today, then 1 po q days 2-5 AZITHROMYCIN 45405455602 No Longer Active Ian Valdez MD Active TRAZODONE HCL 100 MG TABS 2 TABS PO Q HS TRAZODONE HCL 16676970469 Active Ian Valdez MD Active ZITHROMAX 250 MG TAB 2 po today, then 1 po q days 2-5 AZITHROMYCIN 31590280402 No Longer Active Ian Valdez MD Active SIMVASTATIN 80 MG TABS Take one by mouth daily SIMVASTATIN 80 MG TABS 710433 SIMVASTATIN Inactive AURALGAN 1.4-5.5 % SOLN AURALGAN 1.4-5.5 % SOLN BENZOCAINE-ANTIPYRINE Inactive ZITHROMAX 1 GM PACK DIRECTED ZITHROMAX 1 GM PACK 184524 AZITHROMYCIN Inactive CHANTIX STARTING MONTH REBEKAH 0.5 MG X 11 & 1 MG X 42 TABS 0.5mg daily for 3 days , then 0.5mg BID for 4 days, then 1mg BID CHANTIX STARTING MONTH REBEKAH 0.5 MG X 11 & 1 MG X 42 TABS VARENICLINE TARTRATE Inactive ZITHROMAX 1 GM PACK DIRECTED ZITHROMAX 1 GM PACK 411404 AZITHROMYCIN Inactive MOBIC 7.5 MG TABS 1 tablet by mouthonce a day MOBIC 7.5 MG TABS 857688 MELOXICAM Inactive KLONOPIN 0.5 MG TABS 1 TABLET PO PRN KLONOPIN 0.5 MG TABS 133104 CLONAZEPAM Inactive CIPRO 500 MG TAB 1 tablet by mouth twice daily CIPRO 500 MG TAB 333479 CIPROFLOXACIN HCL Inactive AZITHROMYCIN 500 MG TABS 1 PO q day x 6 days AZITHROMYCIN 500 MG TABS 4288704 AZITHROMYCIN Inactive CYCLOBENZAPRINE HCL 10 MG TABS 1 PO q 8 hrs PRN muscle spasm 2012 CYCLOBENZAPRINE HCL 10 MG TABS 371858 CYCLOBENZAPRINE HCL Inactive METFORMIN HCL 500 MG [...] bid prn anxiety. XANAX 0.25 MG TABS 736142 ALPRAZOLAM Inactive LAMISIL AT 1 % CREA apply bid to rash LAMISIL AT 1 % CREA 534050 TERBINAFINE HCL Inactive TOPAMAX 25 MG TABS 1 tab po qhs x 1 week, then take 2 tabs po qhs TOPAMAX 25 MG TABS 554554 TOPIRAMATE Inactive TERBINAFINE HCL 1 % CREA Apply bid to rash TERBINAFINE HCL 1 % CREA 531425 TERBINAFINE HCL Inactive BENZACLIN 1-5 % EXT GEL apply to face BID for acne. BENZACLIN 1-5 % EXT GEL 330062 CLINDAMYCIN PHOS-BENZOYL PEROX Inactive ZITHROMAX 250 MG TAB 2 po today, then 1 po q days 2-5 ZITHROMAX 250 MG TAB 5618845 AZITHROMYCIN Inactive ZITHROMAX 250 MG TAB 2 po today, then 1 po q days 2-5 ZITHROMAX 250 MG TAB 3259199 AZITHROMYCIN Inactive PREDNISONE 20 MG TAB 2 tabs daily for 3 days, 1 tab daily for 3 days, 1/2 tab daily for 2 days PREDNISONE 20 MG TAB 150399 PREDNISONE Inactive PREDNISONE 20 MG TAB 3 tabs daily for 3 days, 2 tab daily for 3 days, 1 tab daily for 2 days, then 1/2 tab dialy for 2 days PREDNISONE 20 MG TAB 210671 PREDNISONE Inactive OMEPRAZOLE 20 MG CPDR 1 tablet by mouth daily OMEPRAZOLE 20 MG CPDR 611875 OMEPRAZOLE Inactive PREDNISONE 20 MG TABS 3 qd x 2d, 2 qd x 2d, 1 qd x 2d, 1/2 qd x 2d PREDNISONE 20 MG TABS 450214 PREDNISONE Inactive TERBINAFINE HCL 250 MG TABS 1 qDay TERBINAFINE HCL 250 MG TABS 196194 TERBINAFINE HCL Inactive DOXYCYCLINE HYCLATE 100 MG CAP 1 cap by mouth twice daily DOXYCYCLINE HYCLATE 100 MG CAP 9946751 DOXYCYCLINE HYCLATE Inactive MEDROL (REBEKAH) 4 MG [...] and acellular pertussis vaccine, adsorbed), booster Boostrix [KRP226] tetanus toxoid, reduced diphtheria toxoid, and acellular [...] MICROALBUMIN - Chemistry sodium, serum 141 mmol/L 971-360 8766/10/27 potassium, serum 4.5 mmol/L 3.5-5.2 chloride, serum [...] surface antigen NON-REACTIVE NON-REACTIVE Lab Report: HIV-1/2 Agn/Ritu/95624, Chlamydia/GC APTIMA/69485 - Lab chlamydia DNA probe NOT DETECTED NOT DETECTED Lab Report: HIV-1/2 Agn/Ritu/06868, Chlamydia/GC APTIMA/01958 - Microbiology Neisseria gonorrhoeae DNA probe NOT DETECTED NOT DETECTED Lab Report: TONY INFLUENZA A/B - Toxicology rapid flu test Negative Negative;Positive Lab Report: [facility] [place] - Chemistry human chorionic gonadotropin, urine, qualitative (urine test) Negative Negative Office Visit: Med Check / Labs - Chemistry cholesterol, target level 200 mg/dL LDL target level 100 mg/dL HDL cholesterol, serum, target level 40 mg/dL triglyceride, target level 150 mg/dL Encounters Code Encounter Date Provider Facility CPT-23385 Level 3 Est. Patient 11:15:53 TANK BUILDER SUPERVISOR Ian Valdez MD [facility] CPT-57344 Level 3 Est. Patient 15:20:49 TANK BUILDER SUPERVISOR Law FIGUEROA [facility] CPT-17671 Level 4 Est. Patient 22:41:22 CDT Ian Valdez MD [facility] CPT-58696 Level 3 Est. Patient 17:03:54 CDT Carlos Mccormack MD [facility] CPT-66860 Level 3 Est. Patient 20:15:16 CDT Ian Valdez MD [facility] CPT-11547 Level 3 Est. Patient 13:49:34 CDT Ian Valdez MD [facility] CPT-89163 Level 3 Est. Patient 15:50:27 TANK BUILDER SUPERVISOR Najma Vaughn SAMI [facility] CPT-14575 Level 4 Est. Patient 21:20:00 TANK BUILDER SUPERVISOR Ian Valdez MD [facility]-17429 Level 3 Est. Patient 15:32:41 TANK BUILDER SUPERVISOR Juan Smith MD [facility]-30884 Level 3 Est. Patient 14:45:01 CDT Eva Ferrara MD PhD [facility]-15441 Level 3 Est. Patient 14:54:10 CDT Ian Valdez MD [facility]-20260 Level 4 Est. Patient 20:36:52 CDT Ian Valdez MD [facility]-73950 Level 4 Est. Patient 11:14:30 TANK BUILDER SUPERVISOR Ian Valdez MD [facility]-83984 Level 3 Est. Patient 19:08:34 TANK BUILDER SUPERVISOR Ian Valdez MD [facility] CPT-76573 Level 3 Est. Patient 13:17:39 TANK BUILDER SUPERVISOR Ian Valdez MD [facility]-97258 Level 4 Est. Patient 18:56:10 CDT Ian Valdez MD [facility]-57692 Level 4 Est. Patient 16:55:56 CDT Ian Valdez MD [facility]-27278 Level 3 Est. Patient 11:27:07 CDT Ian Valdez MD [facility]-24382 Level 3 Est. Patient 15:17:44 CDT Law Rosas [facility]-25423 Level 4 Est. Patient 15:13:53 CDT Wellington Muniz [facility]-09508 Level 3 Est. Patient 14:25:12 TANK BUILDER SUPERVISOR Ian Valdez MD [facility] CPT-21314 Level 3 Est. Patient 10:24:46 CDT Ian Valdez MD [facility] CPT-24704 Level 3 Est. Patient 15:34:19 CDT Ian Valdez MD [facility] CPT-86065 Level 3 Est. Patient 14:22:41 CDT Ian Valdez MD [facility] CPT-46724 Level 3 Est. Patient 15:07:22 TANK BUILDER SUPERVISOR Ian Valdez MD [facility] CPT-41641 Level 3 New Patient 09:06:43 TANK BUILDER SUPERVISOR Ian Valdez MD [facility] CPT-53279 Level 3 Est. Patient 15:09:00 TANK BUILDER SUPERVISOR Ian Valdez MD [facility] Procedures Code Procedure Name Date Entry Date Standard Description CPT-J2930 Solu Medrol 125 mg (Methyl Prednisolone Sodium Succinate) 09:17:43 TANK BUILDER SUPERVISOR CPT-15755 Abx/Therapy Injection 09:17:43 TANK BUILDER SUPERVISOR CPT-J2930 Solu Medrol 125 mg (Methyl Prednisolone Sodium Succinate) 13:19:04 TANK BUILDER SUPERVISOR CPT-13911 Abx/Therapy Injection 13:19:04 TANK BUILDER SUPERVISOR CPT-J2930 Solu Medrol 125 mg (Methyl Prednisolone Sodium Succinate) 11:15:53 TANK BUILDER SUPERVISOR CPT-J1050 Depo Provera 150 mg (Medroxyprogesterone) 13:45:44 CDT CPT-34571 Abx/Therapy Injection 13:45:44 CDT CPT-J1050 Depo Provera 150 mg (Medroxyprogesterone) 15:27:21 CDT CPT-37137 Abx/Therapy Injection 15:27:21 CDT CPT-10835 Abd compl w upright 17:11:01 CDT CPT-OV Office Visit 16:24:22 CDT CPT-OV Office Visit 15:15:29 TANK BUILDER SUPERVISOR CPT-OV Office Visit 15:49:26 TANK BUILDER SUPERVISOR CPT-J1885 Toradol 60 mg (Ketorolac) 15:37:32 CDT CPT-77628 Abx/Therapy Injection 15:37:32 CDT CPT-J1885 Toradol 60 mg (Ketorolac) 14:45:01 CDT CPT-OV Office Visit 15:19:52 CDT CPT-OV Office Visit 10:41:01 CDT CPT-34754 Core biop breast wo imaging 16:50:06 CDT CPT-OV Office Visit 16:50:05 CDT CPT-17498 UHCG (floor use only) 13:39:36 CDT CPT-13978 Nexplanon Placement 10:11:48 CDT CPT-J7307 Nexplanon (Implant) 10:11:48 CDT CPT-OV Office Visit 09:54:18 CDT CPT-46280 EKG Trac and Interp 16:50:19 CDT CPT-67572 Venipuncture Draw Fee 15:06:08 CDT CPT-J2930 Solu Medrol 125 mg (Methyl Prednisolone Sodium Succinate) 12:44:46 CDT CPT-J1055 Depo Provera 150 mg (Medroxyprogesterone) 12:44:46 CDT CPT-67152 Abx/Therapy Injection 12:44:46 CDT CPT-J1055 Depo Provera 150 mg (Medroxyprogesterone) 14:28:41 CDT CPT-J2930 Solu Medrol 125 mg (Methyl Prednisolone Sodium Succinate) 14:22:41 CDT CPT-01587 Administration single or combination vaccine inc oral 10 :08:06 CDT CPT-48089 Tdap 10:08:06 CDT CPT-G0402 Wl To Medicare Ex 22:17:30 CDT CPT-82288 Venipuncture Draw Fee 10:33:07 TANK BUILDER SUPERVISOR CPT-99985 Venipuncture Draw Fee 10:17:37 TANK BUILDER SUPERVISOR CPT-G0403 EKG Wl To Medicare 22:17:30 CDT
--- OUTSIDE RECORDS SUMMARY | 2018-07-17 21:23 | XMS REPORT | Clinical Summary ---
Author Author Admin, ARIAN Organization [facility] Address Unknown Phone Unavailable Allergies, Adverse Reactions, [...] diabetes mellitus DIABETES-TYPE 2 250.00 Active Ian Vladez MD Diabetes mellitus without mention of complication, [...] po BID PRN Constipation 10/07 MAGNESIUM CITRATE 88497929597 Active Carlos Mccormack MD Active DICLOFENAC SODIUM 50 MG ORAL TBEC TID PRN DICLOFENAC SODIUM 63457169673 Active Ian Valdez MD Active BUSPIRONE HCL 7.5 MG ORAL TABS 1 TAB PO BID PRN ANXIETY BUSPIRONE HCL 14526255638 Active Herminia Bear Active MEDROL (REBEKAH) 4 MG TABS 6 tabs on day 1, 5 tabs on day 2, 4 tabs on day 3, 3 tabs on day 4, 2 tabs on day 5, 1 tab on day 6 METHYLPREDNISOLONE 80241774237 No Longer Active Herminia Chema Active MELOXICAM 15 MG TABS 1 po q day for pain with food MELOXICAM 15510110568 Active Ian Valdez MD Active DOXYCYCLINE HYCLATE 100 MG CAP 1 cap by mouth twice daily DOXYCYCLINE HYCLATE 87994673054 No Longer Active Najma Vaughn HELP DESK SPECIALIST Active MULTIVITAMINS CAPS 1 tablet daily MULTIPLE VITAMIN 72625289719 Active Juan Smith MD Active CYCLOBENZAPRINE HCL 10 MG TABS 1/2 - 1 tab by mouth three times daily if needed for spasms/pain CYCLOBENZAPRINE HCL 28951371727 Active Ian Valdez MD Active GLUCOPHAGE 500 MG TABS 1 tab BID with morning and night meals METFORMIN HCL 18347489232 Active Eva Ferrara MD PhD Active PROGESTERONE MICRONIZED 100 MG CAPS 2 caps daily day 16 thru 25 of cycle 2013 PROGESTERONE MICRONIZED 77474878876 Active Eva Ferrara MD PhD Active TERBINAFINE HCL 1 % CREA Apply bid to rash TERBINAFINE HCL 12474677041 No Longer Active Eva Ferrara MD PhD Active TOPAMAX 25 MG TABS 1 tab po qhs x 1 week, then take 2 tabs po qhs TOPIRAMATE 09639638253 No Longer Active Thom Gilbert MD Active ULTRAM 50 MG TAB take 1 tab po q6hrs prn pain TRAMADOL HCL 44529377936 Active Ian Valdez MD Active LAMISIL AT 1 % CREA apply bid to rash TERBINAFINE HCL 80218792107 No Longer Active Thom Gilbert MD Active TERBINAFINE HCL 250 MG TABS 1 qDay TERBINAFINE HCL 33967775070 No Longer Active Ian Valdez MD Active XANAX 0.25 MG TABS take 1 tab po bid prn anxiety. ALPRAZOLAM 49128226655 No Longer Active Ian Valdez MD Active FISH OIL 1000 MG CAPS 2 caps PO once daily at bedtime OMEGA-3 FATTY ACIDS 97261921562 No Longer Active Ian Valdez MD Active KLOR-CON M20 20 MEQ CR-TABS take 1 tab po qday with lasix POTASSIUM CHLORIDE GALILEO CR 95930592887 Active Ian Valdez MD Active LASIX 20 MG TAB 1 tablet by mouth daily prn swelling FUROSEMIDE 48340703392 Active Ian Valdez MD Active FLONASE 50 MCG/ACT SUSP 2 puffs in each nostril once daily at bedtime FLUTICASONE PROPIONATE 51666983698 Active Ian Valdez MD Active [facility] MELATONIN 3 MG TABS 2 tabs PO at bedtime MELATONIN 90630120804 Active Ian Valdez MD Active PULMICORT FLEXHALER 180 MCG/ACT AEPB 2 INH BID BUDESONIDE 34828231451 No Longer Active Ian Valdez MD Active METFORMIN HCL 500 MG TB24 1 TAB PO Q HS METFORMIN HCL 44613748995 No Longer Active Ian Valdez MD Active CYCLOBENZAPRINE HCL 10 MG TABS 1 PO q 8 hrs PRN muscle spasm 2012 CYCLOBENZAPRINE HCL 75247506814 No Longer Active Ian Valdez MD Active AZITHROMYCIN 500 MG TABS 1 PO q day x 6 days AZITHROMYCIN 91658278854 No Longer Active Ian Valdez MD Active CIPRO 500 MG TAB 1 tablet by mouth twice daily CIPROFLOXACIN HCL 23070211807 No Longer Active Ian Valdez MD Active PREDNISONE 20 MG TABS 3 qd x 2d, 2 qd x 2d, 1 qd x 2d, 1/2 qd x 2d PREDNISONE 35726334527 No Longer Active Law FIGUEROA Active CELEXA 40 MG TABS 2 PO DAILY CITALOPRAM HYDROBROMIDE 97370555235 Active Ian Valdez MD Active OMEPRAZOLE 20 MG CPDR 1 tablet by mouth daily OMEPRAZOLE 48798928063 No Longer Active [place] FIGUEROA Active KLONOPIN 0.5 MG TABS 1 TABLET PO PRN CLONAZEPAM 30919956014 No Longer Active [place] FIGUEROA Active MOBIC 7.5 MG TABS 1 tablet by mouthonce a day MELOXICAM 75583761004 No Longer Active [place] FIGUEROA Active ZITHROMAX 1 GM PACK DIRECTED AZITHROMYCIN 92796528295 No Longer Active Ian Valdez MD Active ALBUTEROL SULFATE 0.083 % NEBU SOLN one vial per nebulizer every 4-6 hours as needed ALBUTEROL SULFATE 79762103426 Active Ian Valdez MD Active CHANTIX STARTING MONTH REBEKAH 0.5 MG X 11 & 1 MG X 42 TABS 0.5mg daily for 3 days , then 0.5mg BID for 4 days, then 1mg BID VARENICLINE TARTRATE 93481374925 No Longer Active Ian Valdez MD Active ZITHROMAX 1 GM PACK DIRECTED AZITHROMYCIN 72769685684 No Longer Active Ian Valdez MD Active AURALGAN 1.4-5.5 % SOLN BENZOCAINE-ANTIPYRINE 79397076926 No Longer Active Ian Valdez MD Active PREDNISONE 20 MG TAB 3 tabs daily for 3 days, 2 tab daily for 3 days, 1 tab daily for 2 days, then 1/2 tab dialy for 2 days PREDNISONE 42291121718 No Longer Active Ian Valdez MD Active SIMVASTATIN 40 MG TABS 1 TABLET PO Q HS SIMVASTATIN 75746241217 Active Ian Valdez MD Active SIMVASTATIN 80 MG TABS Take one by mouth daily SIMVASTATIN 89988350067 No Longer Active Ian Valdez MD Active PREDNISONE 20 MG TAB 2 tabs daily for 3 days, 1 tab daily for 3 days, 1/2 tab daily for 2 days PREDNISONE 82505069147 No Longer Active Ian Valdez MD Active ZITHROMAX 250 MG TAB 2 po today, then 1 po q days 2-5 AZITHROMYCIN 31461769257 No Longer Active Ian Valdez MD Active TRAZODONE HCL 100 MG TABS 2 TABS PO Q HS TRAZODONE HCL 62973933482 Active Ian Valdez MD Active ZITHROMAX 250 MG TAB 2 po today, then 1 po q days 2-5 AZITHROMYCIN 39608936045 No Longer Active Ian Valdez MD Active SIMVASTATIN 80 MG TABS Take one by mouth daily SIMVASTATIN 80 MG TABS 694054 SIMVASTATIN Inactive AURALGAN 1.4-5.5 % SOLN AURALGAN 1.4-5.5 % SOLN BENZOCAINE-ANTIPYRINE Inactive ZITHROMAX 1 GM PACK DIRECTED ZITHROMAX 1 GM PACK 809863 AZITHROMYCIN Inactive CHANTIX STARTING MONTH REBEKAH 0.5 MG X 11 & 1 MG X 42 TABS 0.5mg daily for 3 days , then 0.5mg BID for 4 days, then 1mg BID CHANTIX STARTING MONTH REBEKAH 0.5 MG X 11 & 1 MG X 42 TABS VARENICLINE TARTRATE Inactive ZITHROMAX 1 GM PACK DIRECTED ZITHROMAX 1 GM PACK 226520 AZITHROMYCIN Inactive MOBIC 7.5 MG TABS 1 tablet by mouthonce a day MOBIC 7.5 MG TABS 934487 MELOXICAM Inactive KLONOPIN 0.5 MG TABS 1 TABLET PO PRN KLONOPIN 0.5 MG TABS 145552 CLONAZEPAM Inactive CIPRO 500 MG TAB 1 tablet by mouth twice daily CIPRO 500 MG TAB 319022 CIPROFLOXACIN HCL Inactive AZITHROMYCIN 500 MG TABS 1 PO q day x 6 days AZITHROMYCIN 500 MG TABS 3570215 AZITHROMYCIN Inactive CYCLOBENZAPRINE HCL 10 MG TABS 1 PO q 8 hrs PRN muscle spasm 2012 CYCLOBENZAPRINE HCL 10 MG TABS 233032 CYCLOBENZAPRINE HCL Inactive METFORMIN HCL 500 MG [...] bid prn anxiety. XANAX 0.25 MG TABS 042185 ALPRAZOLAM Inactive LAMISIL AT 1 % CREA apply bid to rash LAMISIL AT 1 % CREA 237460 TERBINAFINE HCL Inactive TOPAMAX 25 MG TABS 1 tab po qhs x 1 week, then take 2 tabs po qhs TOPAMAX 25 MG TABS 737842 TOPIRAMATE Inactive TERBINAFINE HCL 1 % CREA Apply bid to rash TERBINAFINE HCL 1 % CREA 861236 TERBINAFINE HCL Inactive ZITHROMAX 250 MG TAB 2 po today, then 1 po q days 2-5 ZITHROMAX 250 MG TAB 0405887 AZITHROMYCIN Inactive ZITHROMAX 250 MG TAB 2 po today, then 1 po q days 2-5 ZITHROMAX 250 MG TAB 1671865 AZITHROMYCIN Inactive PREDNISONE 20 MG TAB 2 tabs daily for 3 days, 1 tab daily for 3 days, 1/2 tab daily for 2 days PREDNISONE 20 MG TAB 378483 PREDNISONE Inactive PREDNISONE 20 MG TAB 3 tabs daily for 3 days, 2 tab daily for 3 days, 1 tab daily for 2 days, then 1/2 tab dialy for 2 days PREDNISONE 20 MG TAB 463315 PREDNISONE Inactive OMEPRAZOLE 20 MG CPDR 1 tablet by mouth daily OMEPRAZOLE 20 MG CPDR 044925 OMEPRAZOLE Inactive PREDNISONE 20 MG TABS 3 qd x 2d, 2 qd x 2d, 1 qd x 2d, 1/2 qd x 2d PREDNISONE 20 MG TABS 958051 PREDNISONE Inactive TERBINAFINE HCL 250 MG TABS 1 qDay TERBINAFINE HCL 250 MG TABS 950807 TERBINAFINE HCL Inactive DOXYCYCLINE HYCLATE 100 MG CAP 1 cap by mouth twice daily DOXYCYCLINE HYCLATE 100 MG CAP 5834031 DOXYCYCLINE HYCLATE Inactive MEDROL (REBEKAH) 4 MG [...] and acellular pertussis vaccine, adsorbed), booster Boostrix [[id number]] tetanus toxoid, reduced diphtheria toxoid, and acellular [...] 1.44 m[iU]/mL 0.36-3.74 cholesterol, serum 144 mg/dL 501-321 9762/11/19 triglyceride, serum, fasting 172 mg/dL 30-200 HDL cholesterol, serum 30 mg/dL 32-96 LDL cholesterol, serum 80 mg/dL 0-130 sodium, serum 137 mmol/L 674-489 8631/11/19 potassium, serum 4.1 mmol/L 3.5-5.2 chloride, serum 100 mmol/L 98-107 carbon dioxide, venous blood 26.9 mmol/L 21.0-32.0 blood glucose 84 mg/dL 65-110 urea nitrogen, blood 11 mg/dL 7-18 creatinine, serum 0.90 mg/dL 0.60-1.30 alanine aminotransferase (SGPT), serum 23 U/L 12-78 aspartate aminotransferase (SGOT), serum 17 U/L 15-37 calcium, serum 9.5 mg/dL 8.5-10.1 bilirubin, serum, total 0.70 mg/dL 0.00-1.00 Lab Report: HIV-1/2 Agn/Ritu/84834, Chlamydia/GC APTIMA/12281 - Lab chlamydia DNA probe NOT DETECTED NOT DETECTED Lab Report: HIV-1/2 Agn/Ritu/35337, Chlamydia/GC APTIMA/03103 - Microbiology Neisseria gonorrhoeae DNA probe NOT DETECTED NOT DETECTED Lab Report: TONY INFLUENZA A/B - Toxicology rapid flu test Negative Negative;Positive Lab Report: [facility] [place] - Chemistry human chorionic gonadotropin, urine, qualitative (urine test) Negative Negative Office Visit: wellness exam for insurance/ diabetes check - Chemistry cholesterol, target level 200 mg/dL LDL target level 100 mg/dL HDL cholesterol, serum, target level 40 mg/dL triglyceride, target level 150 mg/dL Encounters Code Encounter Date Provider Facility CPT-19732 Level 3 Est. Patient 17:03:54 CDT Carlos Mccormack MD [facility] CPT-70566 Level 3 Est. Patient 20:15:16 CDT Ian Valdez MD [facility] CPT-51991 Level 3 Est. Patient 13:49:34 CDT Ian Valdez MD [facility] CPT-32984 Level 3 Est. Patient 15:50:27 QUARTER SUPERVISOR Najma Vaughn APRN [facility] CPT-27530 Level 4 Est. Patient 21:20:00 QUARTER SUPERVISOR Ian Valdez MD [facility] CPT-59560 Level 3 Est. Patient 15:32:41 QUARTER SUPERVISOR Juan Smith MD [facility] CPT-17761 Level 3 Est. Patient 14:45:01 CDT Eva Ferrara MD PhD [facility] CPT-25108 Level 3 Est. Patient 14:54:10 CDT Ian Valdez MD [facility] CPT-75811 Level 4 Est. Patient 20:36:52 CDT Ian Valdez MD [facility] CPT-90338 Level 4 Est. Patient 11:14:30 QUARTER SUPERVISOR Ian Valdez MD [facility] CPT-40883 Level 3 Est. Patient 19:08:34 QUARTER SUPERVISOR Ian Valdez MD [facility] CPT-60308 Level 3 Est. Patient 13:17:39 QUARTER SUPERVISOR Ian Valdez MD [facility] CPT-99229 Level 4 Est. Patient 18:56:10 CDT Ian Valdez MD [facility] CPT-27893 Level 4 Est. Patient 16:55:56 CDT Ian Valdez MD [facility] CPT-67429 Level 3 Est. Patient 11:27:07 CDT Ian Valdez MD [facility] CPT-87750 Level 3 Est. Patient 15:17:44 CDT Law Rosas [facility] CPT-81875 Level 4 Est. Patient 15:13:53 CDT Wellington Muniz [facility] CPT-02980 Level 3 Est. Patient 14:25:12 QUARTER SUPERVISOR Ian Valdez MD [facility] CPT-95961 Level 3 Est. Patient 10:24:46 CDT Ian Valdez MD [facility] CPT-20516 Level 3 Est. Patient 15:34:19 CDT Ian Valdez MD [facility] CPT-77625 Level 3 Est. Patient 14:22:41 CDT Ian Valdez MD [facility] CPT-54680 Level 3 Est. Patient 15:07:22 QUARTER SUPERVISOR Ian Valdez MD [facility] CPT-61662 Level 3 New Patient 09:06:43 QUARTER SUPERVISOR Ian Valdez MD [facility] CPT-00807 Level 3 Est. Patient 15:09:00 QUARTER SUPERVISOR Ian Valdez MD [facility] Procedures Code Procedure Name Date Entry Date Standard Description CPT-J1050 Depo Provera 150 mg (Medroxyprogesterone) 15:27:21 CDT CPT-92395 Abx/Therapy Injection 15:27:21 CDT CPT-66809 Abd compl w upright 17:11:01 CDT CPT-OV Office Visit 16:24:22 CDT CPT-OV Office Visit 15:15:29 QUARTER SUPERVISOR CPT-OV Office Visit 15:49:26 QUARTER SUPERVISOR CPT-J1885 Toradol 60 mg (Ketorolac) 15:37:32 CDT CPT-46168 Abx/Therapy Injection 15:37:32 CDT CPT-J1885 Toradol 60 mg (Ketorolac) 14:45:01 CDT CPT-OV Office Visit 15:19:52 CDT CPT-OV Office Visit 10:41:01 CDT CPT-04799 Core biop breast wo imaging 16:50:06 CDT CPT-OV Office Visit 16:50:05 CDT CPT-12909 UHCG (floor use only) 13:39:36 CDT CPT-14570 Nexplanon Placement 10:11:48 CDT CPT-J7307 Nexplanon (Implant) 10:11:48 CDT CPT-OV Office Visit 09:54:18 CDT CPT-72818 EKG Trac and Interp 16:50:19 CDT CPT-24221 Venipuncture Draw Fee 15:06:08 CDT CPT-J2930 Solu Medrol 125 mg (Methyl Prednisolone Sodium Succinate) 12:44:46 CDT CPT-J1055 Depo Provera 150 mg (Medroxyprogesterone) 12:44:46 CDT CPT-69511 Abx/Therapy Injection 12:44:46 CDT CPT-J1055 Depo Provera 150 mg (Medroxyprogesterone) 14:28:41 CDT CPT-J2930 Solu Medrol 125 mg (Methyl Prednisolone Sodium Succinate) 14:22:41 CDT CPT-01808 Administration single or combination vaccine inc oral 10 :08:06 CDT CPT-25684 Tdap 10:08:06 CDT CPT-G0402 Wlcm To Medicare Ex 22:17:30 CDT CPT-67771 Venipuncture Draw Fee 10:33:07 QUARTER SUPERVISOR CPT-79907 Venipuncture Draw Fee 10:17:37 QUARTER SUPERVISOR CPT-G0403 EKG Wlc To Medicare 22:17:30 CDT
[2018-07-17 21:24] LABS: AMPHETAMINE SCREEN, URINE NEGATIVE (NEGATIVE); BARBITURATE SCREEN URINE NEGATIVE (NEGATIVE); BENZODIAZEPINES SCREEN URINE NEGATIVE (NEGATIVE); CANNABINOID SCREEN, URINE NEGATIVE (NEGATIVE); COCAINE SCREEN URINE NEGATIVE (NEGATIVE); HCG,QUALITATIVE URINE NEGATIVE (NEGATIVE); METHADONE STAT NEGATIVE (NEGATIVE); METHAMPHETAMINE SCREEN URINE S NEGATIVE (NEGATIVE); OPIATE SCREEN URINE NEGATIVE (NEGATIVE); OXYCODONE STAT NEGATIVE (NEGATIVE); PROPOXYPHENE STAT NEGATIVE (NEGATIVE); TRICYCLIC ANTIDEPRESSANTS SCRE NEGATIVE (NEGATIVE)
--- OUTSIDE RECORDS SUMMARY | 2018-07-17 21:25 | XMS REPORT | Clinical Summary ---
Author Author Admin, ARIAN Organization [facility] Address Unknown Phone Unavailable Allergies, Adverse [...] involving shoulder region PERIPHERAL EDEMA 782.3 Resolved Ina Valdez MD Edema F/U EXAM FOLLOW CMPL [...] Polycystic ovaries Unspecified procreative management V26.9 Inactive hTom Gilbert MD Unspecified procreative management Tinea cruris [...] MG ORAL TBEC TID PRN DICLOFENAC SODIUM 04513826359 Active Nataliya Lozada Active BUSPIRONE HCL 7.5 MG ORAL TABS 1 TAB PO BID PRN ANXIETY BUSPIRONE HCL 92711830876 Active Herminai Bear Active MEDROL (REBEKAH) 4 MG TABS 6 tabs on day 1, 5 tabs on day 2, 4 tabs on day 3, 3 tabs on day 4, 2 tabs on day 5, 1 tab on day 6 METHYLPREDNISOLONE 20623505228 No Longer Active Herminia Bear Active MELOXICAM 15 MG TABS 1 po q day for pain with food MELOXICAM 11283334556 Active Ian Valdez MD Active DOXYCYCLINE HYCLATE 100 MG CAP 1 cap by mouth twice daily DOXYCYCLINE HYCLATE 00370993403 No Longer Active Najma Vaughn APRN Active MULTIVITAMINS CAPS 1 tablet daily MULTIPLE VITAMIN 32251742368 Active Juan Smith MD Active CYCLOBENZAPRINE HCL 10 MG TABS 1/2 - 1 tab by mouth three times daily if needed for spasms/pain CYCLOBENZAPRINE HCL 15841219684 Active Ian Valdez MD Active GLUCOPHAGE 500 MG TABS 1 tab BID with morning and night meals METFORMIN HCL 39552101961 Active Eva Ferrara MD PhD Active PROGESTERONE MICRONIZED 100 MG CAPS 2 caps daily day 16 thru 25 of cycle 2013 PROGESTERONE MICRONIZED 23037063502 Active Eva Ferrara MD PhD Active TERBINAFINE HCL 1 % CREA Apply bid to rash TERBINAFINE HCL 58474941219 No Longer Active Eva Ferrara MD PhD Active TOPAMAX 25 MG TABS 1 tab po qhs x 1 week, then take 2 tabs po qhs TOPIRAMATE 77348943669 No Longer Active Thom Gilbert MD Active ULTRAM 50 MG TAB take 1 tab po q6hrs prn pain TRAMADOL HCL 56879587469 Active Grayson Josue DO Active LAMISIL AT 1 % CREA apply bid to rash TERBINAFINE HCL 48153328547 No Longer Active Thom Gilbert MD Active TERBINAFINE HCL 250 MG TABS 1 qDay TERBINAFINE HCL 06984847514 No Longer Active Ian Valdez MD Active XANAX 0.25 MG TABS take 1 tab po bid prn anxiety. ALPRAZOLAM 19977807602 No Longer Active Ian Valdez MD Active FISH OIL 1000 MG CAPS 2 caps PO once daily at bedtime OMEGA-3 FATTY ACIDS 64784281226 No Longer Active Ian Valdez MD Active KLOR-CON M20 20 MEQ CR-TABS take 1 tab po qday with lasix POTASSIUM CHLORIDE GALILEO CR 32873515493 Active Ian Valdez MD Active LASIX 20 MG TAB 1 tablet by mouth daily prn swelling FUROSEMIDE 24994639530 Active Ian Valdez MD Active FLONASE 50 MCG/ACT SUSP 2 puffs in each nostril once daily at bedtime FLUTICASONE PROPIONATE 63811783124 Active Ian Valdez MD Active [facility] MELATONIN 3 MG TABS 2 tabs PO at bedtime MELATONIN 39935502059 Active Ian Valdez MD Active PULMICORT FLEXHALER 180 MCG/ACT AEPB 2 INH BID BUDESONIDE 49725120643 No Longer Active Ian Valdez MD Active METFORMIN HCL 500 MG TB24 1 TAB PO Q HS METFORMIN HCL 76878230089 No Longer Active Ian Valdez MD Active CYCLOBENZAPRINE HCL 10 MG TABS 1 PO q 8 hrs PRN muscle spasm 2012 CYCLOBENZAPRINE HCL 78895479288 No Longer Active Ian Valdez MD Active AZITHROMYCIN 500 MG TABS 1 PO q day x 6 days AZITHROMYCIN 44516996288 No Longer Active Ian Valdez MD Active CIPRO 500 MG TAB 1 tablet by mouth twice daily CIPROFLOXACIN HCL 79785040567 No Longer Active Ian Valdez MD Active PREDNISONE 20 MG TABS 3 qd x 2d, 2 qd x 2d, 1 qd x 2d, 1/2 qd x 2d PREDNISONE 99427622425 No Longer Active Law FIGUEROA Active CELEXA 40 MG TABS 2 PO DAILY CITALOPRAM HYDROBROMIDE 17832930449 Active Ian Valdez MD Active OMEPRAZOLE 20 MG CPDR 1 tablet by mouth daily OMEPRAZOLE 77367135116 No Longer Active [place] FIGUEROA Active KLONOPIN 0.5 MG TABS 1 TABLET PO PRN CLONAZEPAM 30246621726 No Longer Active [place] FIGUEROA Active MOBIC 7.5 MG TABS 1 tablet by mouthonce a day MELOXICAM 85088407270 No Longer Active [place] FIGUEROA Active ZITHROMAX 1 GM PACK DIRECTED AZITHROMYCIN 77267213081 No Longer Active Ian Valdez MD Active ALBUTEROL SULFATE 0.083 % NEBU SOLN one vial per nebulizer every 4-6 hours as needed ALBUTEROL SULFATE 55059184311 Active Ian Valdez MD Active CHANTIX STARTING MONTH REBEKAH 0.5 MG X 11 & 1 MG X 42 TABS 0.5mg daily for 3 days , then 0.5mg BID for 4 days, then 1mg BID VARENICLINE TARTRATE 20578817574 No Longer Active Ian Valdez MD Active ZITHROMAX 1 GM PACK DIRECTED AZITHROMYCIN 68760308315 No Longer Active Ian Valdez MD Active AURALGAN 1.4-5.5 % SOLN BENZOCAINE-ANTIPYRINE 84637758294 No Longer Active Ian Valdez MD Active PREDNISONE 20 MG TAB 3 tabs daily for 3 days, 2 tab daily for 3 days, 1 tab daily for 2 days, then 1/2 tab dialy for 2 days PREDNISONE 33981766692 No Longer Active Ian Valdez MD Active SIMVASTATIN 40 MG TABS 1 TABLET PO Q HS SIMVASTATIN 53611217825 Active Ian Valdez MD Active SIMVASTATIN 80 MG TABS Take one by mouth daily SIMVASTATIN 01043916389 No Longer Active Ian Valdez MD Active PREDNISONE 20 MG TAB 2 tabs daily for 3 days, 1 tab daily for 3 days, 1/2 tab daily for 2 days PREDNISONE 83190987880 No Longer Active Ian Valdez MD Active ZITHROMAX 250 MG TAB 2 po today, then 1 po q days 2-5 AZITHROMYCIN 77211062351 No Longer Active Ian Valdez MD Active TRAZODONE HCL 100 MG TABS 2 TABS PO Q HS TRAZODONE HCL 81864091101 Active Ian Valdez MD Active ZITHROMAX 250 MG TAB 2 po today, then 1 po q days 2-5 AZITHROMYCIN 77111660359 No Longer Active Ian Valdez MD Active CIPRO 500 MG TAB 1 tablet by mouth twice daily CIPRO 500 MG TAB 311734 CIPROFLOXACIN HCL Inactive CYCLOBENZAPRINE HCL 10 MG TABS 1 PO q 8 hrs PRN muscle spasm 2012 CYCLOBENZAPRINE HCL 10 MG TABS 042920 CYCLOBENZAPRINE HCL Inactive DOXYCYCLINE HYCLATE 100 MG CAP 1 cap by mouth twice daily DOXYCYCLINE HYCLATE 100 MG CAP 587404 DOXYCYCLINE HYCLATE Inactive FISH OIL 1000 MG CAPS 2 caps PO once daily at bedtime FISH OIL 1000 MG CAPS OMEGA-3 FATTY ACIDS Inactive KLONOPIN 0.5 MG TABS 1 TABLET PO PRN KLONOPIN 0.5 MG TABS 506660 CLONAZEPAM Inactive PREDNISONE 20 MG TABS 3 qd x 2d, 2 qd x 2d, 1 qd x 2d, 1/2 qd x 2d PREDNISONE 20 MG TABS 835266 PREDNISONE Inactive PREDNISONE 20 MG TAB 2 tabs daily for 3 days, 1 tab daily for 3 days, 1/2 tab daily for 2 days PREDNISONE 20 MG TAB 596969 PREDNISONE Inactive PREDNISONE 20 MG TAB 3 tabs daily for 3 days, 2 tab daily for 3 days, 1 tab daily for 2 days, then 1/2 tab dialy for 2 days PREDNISONE 20 MG TAB 532693 PREDNISONE Inactive XANAX 0.25 MG TABS take 1 tab po bid prn anxiety. XANAX 0.25 MG TABS 717872 ALPRAZOLAM Inactive TERBINAFINE HCL 250 MG TABS 1 qDay TERBINAFINE HCL 250 MG TABS 182593 TERBINAFINE HCL Inactive MEDROL (REBEKAH) 4 MG TABS 6 tabs on day 1, 5 tabs on day 2, 4 tabs on day 3, 3 tabs on day 4, 2 tabs on day 5, 1 tab on day 6 MEDROL ( REBEKAH) 4 MG TABS METHYLPREDNISOLONE Inactive ZITHROMAX 1 GM PACK DIRECTED ZITHROMAX 1 GM PACK 428292 AZITHROMYCIN Inactive ZITHROMAX 1 GM PACK DIRECTED ZITHROMAX 1 GM PACK 872301 AZITHROMYCIN Inactive AZITHROMYCIN 500 MG TABS 1 PO q day x 6 days AZITHROMYCIN 500 MG TABS 5848131 AZITHROMYCIN Inactive TOPAMAX 25 MG TABS 1 tab po qhs x 1 week, then take 2 tabs po qhs TOPAMAX 25 MG TABS 101733 TOPIRAMATE Inactive ZITHROMAX 250 MG TAB 2 po today, then 1 po q days 2-5 ZITHROMAX 250 MG TAB 1295421 AZITHROMYCIN Inactive ZITHROMAX 250 MG TAB 2 po today, then 1 po q days 2-5 ZITHROMAX 250 MG TAB 9871507 AZITHROMYCIN Inactive SIMVASTATIN 80 MG TABS Take one by mouth daily SIMVASTATIN 80 MG TABS 009530 SIMVASTATIN Inactive LAMISIL AT 1 % CREA apply bid to rash LAMISIL AT 1 % CREA 805215 TERBINAFINE HCL Inactive TERBINAFINE HCL 1 % CREA Apply bid to rash TERBINAFINE HCL 1 % CREA 871039 TERBINAFINE HCL Inactive OMEPRAZOLE 20 MG CPDR 1 tablet by mouth daily OMEPRAZOLE 20 MG CPDR 681131 OMEPRAZOLE Inactive MOBIC 7.5 MG TABS 1 tablet by mouthonce a day MOBIC 7.5 MG TABS 247608 MELOXICAM Inactive METFORMIN HCL 500 MG TB24 [...] and acellular pertussis vaccine, adsorbed), booster Boostrix [[id number]] tetanus toxoid, reduced diphtheria toxoid, and acellular [...] 1.44 m[iU]/mL 0.36-3.74 cholesterol, serum 144 mg/dL 905-960 9259/11/19 triglyceride, serum, fasting 172 mg/dL 30-200 HDL cholesterol, serum 30 mg/dL 32-96 LDL cholesterol, serum 80 mg/dL 0-130 sodium, serum 137 mmol/L 766-537 0166/11/19 potassium, serum 4.1 mmol/L 3.5-5.2 chloride, serum 100 mmol/L 98-107 carbon dioxide, venous blood 26.9 mmol/L 21.0-32.0 blood glucose 84 mg/dL 65-110 urea nitrogen, blood 11 mg/dL 7-18 creatinine, serum 0.90 mg/dL 0.60-1.30 alanine aminotransferase (SGPT), serum 23 U/L 12-78 aspartate aminotransferase (SGOT), serum 17 U/L 15-37 calcium, serum 9.5 mg/dL 8.5-10.1 bilirubin, serum, total 0.70 mg/dL 0.00-1.00 Lab Report: HIV-1/2 Agn/Ritu/33375, Chlamydia/GC APTIMA/17625 - Lab chlamydia DNA probe NOT DETECTED NOT DETECTED Lab Report: HIV-1/2 Agn/Ritu/79497, Chlamydia/GC APTIMA/28507 - Microbiology Neisseria gonorrhoeae DNA probe NOT DETECTED NOT DETECTED Lab Report: TONY INFLUENZA A/B - Toxicology rapid flu test Negative Negative;Positive Office Visit: wellness exam for insurance/ diabetes check - Chemistry cholesterol, target level 200 mg/dL LDL target level 100 mg/dL HDL cholesterol, serum, target level 40 mg/dL triglyceride, target level 150 mg/dL Encounters Code Encounter Date Provider Facility CPT-39327 Level 3 Est. Patient 20:15:16 CDT Ian Valdez MD [facility]-59851 Level 3 Est. Patient 13:49:34 CDT Ian Valdez MD [facility]-20092 Level 3 Est. Patient 15:50:27 TRUST ADVISOR Najma Vaughn [facility] CPT-39157 Level 4 Est. Patient 21:20:00 TRUST ADVISOR Ian Valdez MD [facility]-22113 Level 3 Est. Patient 15:32:41 TRUST ADVISOR Juan Smith MD [facility]-14098 Level 3 Est. Patient 14:45:01 CDT Eva Ferrara MD PhD [facility]-17254 Level 3 Est. Patient 14:54:10 CDT Ian Valdez MD [facility]-73217 Level 4 Est. Patient 20:36:52 CDT Ian Valdez MD [facility]-35849 Level 4 Est. Patient 11:14:30 TRUST ADVISOR Ian Valdez MD [facility]-18289 Level 3 Est. Patient 19:08:34 TRUST ADVISOR Ian Valdez MD [facility]-66331 Level 3 Est. Patient 13:17:39 TRUST ADVISOR Ian Valdez MD [facility]-26720 Level 4 Est. Patient 18:56:10 CDT Ian Valdez MD [facility]-57974 Level 4 Est. Patient 16:55:56 CDT Ian Valdez MD [facility]-05399 Level 3 Est. Patient 11:27:07 CDT Ian Valdez MD [facility]-46580 Level 3 Est. Patient 15:17:44 CDT Law Rosas [facility] CPT-53884 Level 4 Est. Patient 15:13:53 CDT Wellington Muniz [facility] CPT-14854 Level 3 Est. Patient 14:25:12 TRUST ADVISOR Ian Valdez MD [facility] CPT-57981 Level 3 Est. Patient 10:24:46 CDT Ian Valdez MD [facility] CPT-78747 Level 3 Est. Patient 15:34:19 CDT Ian Valdez MD [facility] CPT-39948 Level 3 Est. Patient 14:22:41 CDT Ian Valdez MD [facility] CPT-61752 Level 3 Est. Patient 15:07:22 TRUST ADVISOR Ian Valdez MD [facility] CPT-81027 Level 3 New Patient 09:06:43 TRUST ADVISOR Ian Valdez MD [facility] CPT-56197 Level 3 Est. Patient 15:09:00 TRUST ADVISOR Ian Valdez MD [facility] Procedures Code Procedure Name Date Entry Date Standard Description CPT-OV Office Visit 16:24:22 CDT CPT-OV Office Visit 15:15:29 TRUST ADVISOR CPT-OV Office Visit 15:49:26 TRUST ADVISOR CPT-J1885 Toradol 60 mg (Ketorolac) 15:37:32 CDT CPT-83257 Abx/Therapy Injection 15:37:32 CDT CPT-J1885 Toradol 60 mg (Ketorolac) 14:45:01 CDT CPT-OV Office Visit 15:19:52 CDT CPT-OV Office Visit 10:41:01 CDT CPT-15041 Core biop breast wo imaging 16:50:06 CDT CPT-OV Office Visit 16:50:05 CDT CPT-18352 UHCG (floor use only) 13:39:36 CDT CPT-32125 Nexplanon Placement 10:11:48 CDT CPT-J7307 Nexplanon (Implant) 10:11:48 CDT CPT-OV Office Visit 09:54:18 CDT CPT-68035 EKG Trac and Interp 16:50:19 CDT CPT-28011 Venipuncture Draw Fee 15:06:08 CDT CPT-J2930 Solu Medrol 125 mg (Methyl Prednisolone Sodium Succinate) 12:44:46 CDT CPT-J1055 Depo Provera 150 mg (Medroxyprogesterone) 12:44:46 CDT CPT-08731 Abx/Therapy Injection 12:44:46 CDT CPT-J1055 Depo Provera 150 mg (Medroxyprogesterone) 14:28:41 CDT CPT-J2930 Solu Medrol 125 mg (Methyl Prednisolone Sodium Succinate) 14:22:41 CDT CPT-30013 Administration single or combination vaccine inc oral 10 :08:06 CDT CPT-35911 Tdap 10:08:06 CDT CPT-G0402 Wlcm To Medicare Ex 22:17:30 CDT CPT-25889 Venipuncture Draw Fee 10:33:07 TRUST ADVISOR CPT-57208 Venipuncture Draw Fee 10:17:37 TRUST ADVISOR CPT-G0403 EKG Wlc To Medicare 22:17:30 CDT
--- OUTSIDE RECORDS SUMMARY | 2018-07-17 21:27 | XMS REPORT | Clinical Summary ---
Author Author Admin, ARIAN Organization [facility] Address Unknown Phone Unavailable Allergies, Adverse Reactions, [...] MD KNEE PAIN, RIGHT, CHRONIC ICD-719.46 Inactive hTom Gilbert MD Ankle sprain, left ICD-845.00 Inactive [...] MG ORAL TBEC TID PRN DICLOFENAC SODIUM 43876800592 Active Nataliyadaria Fortuneida Active BUSPIRONE HCL 7.5 MG ORAL TABS 1 TAB PO BID PRN ANXIETY BUSPIRONE HCL 20246673838 Active Herminia Bear Active MEDROL (REBEKAH) 4 MG TABS 6 tabs on day 1, 5 tabs on day 2, 4 tabs on day 3, 3 tabs on day 4, 2 tabs on day 5, 1 tab on day 6 METHYLPREDNISOLONE 04779806319 No Longer Active Herminia Bear Active MELOXICAM 15 MG TABS 1 po q day for pain with food MELOXICAM 81320949351 Active Ian Valdez MD Active DOXYCYCLINE HYCLATE 100 MG CAP 1 cap by mouth twice daily DOXYCYCLINE HYCLATE 76864875829 No Longer Active Najma Vaughn APRN Active MULTIVITAMINS CAPS 1 tablet daily MULTIPLE VITAMIN 67203619036 Active Juan Smith MD Active CYCLOBENZAPRINE HCL 10 MG TABS 1/2 - 1 tab by mouth three times daily if needed for spasms/pain CYCLOBENZAPRINE HCL 90674998490 Active Ian Valdez MD Active GLUCOPHAGE 500 MG TABS 1 tab BID with morning and night meals METFORMIN HCL 01248433970 Active Eva Ferrara MD PhD Active PROGESTERONE MICRONIZED 100 MG CAPS 2 caps daily day 16 thru 25 of cycle 2013 PROGESTERONE MICRONIZED 17491115597 Active Eva Ferrara MD PhD Active TERBINAFINE HCL 1 % CREA Apply bid to rash TERBINAFINE HCL 42144892082 No Longer Active Eva Ferrara MD PhD Active TOPAMAX 25 MG TABS 1 tab po qhs x 1 week, then take 2 tabs po qhs TOPIRAMATE 85351445420 No Longer Active Thom Gilbert MD Active ULTRAM 50 MG TAB take 1 tab po q6hrs prn pain TRAMADOL HCL 23662062071 Active Ian Valdez MD Active LAMISIL AT 1 % CREA apply bid to rash TERBINAFINE HCL 64506282076 No Longer Active Thom Gilbert MD Active TERBINAFINE HCL 250 MG TABS 1 qDay TERBINAFINE HCL 32787108603 No Longer Active Ian Valdez MD Active XANAX 0.25 MG TABS take 1 tab po bid prn anxiety. ALPRAZOLAM 92162940126 No Longer Active Ian Valdez MD Active FISH OIL 1000 MG CAPS 2 caps PO once daily at bedtime OMEGA-3 FATTY ACIDS 96171563745 No Longer Active Ian Valdez MD Active KLOR-CON M20 20 MEQ CR-TABS take 1 tab po qday with lasix POTASSIUM CHLORIDE GALILEO CR 83437196725 Active Ian Valdez MD Active LASIX 20 MG TAB 1 tablet by mouth daily prn swelling FUROSEMIDE 75491702448 Active Ian Valdez MD Active FLONASE 50 MCG/ACT SUSP 2 puffs in each nostril once daily at bedtime FLUTICASONE PROPIONATE 87668219232 Active Ian Valdez MD Active CVS MELATONIN 3 MG TABS 2 tabs PO at bedtime MELATONIN 44419413554 Active Ian Valdez MD Active PULMICORT FLEXHALER 180 MCG/ACT AEPB 2 INH BID BUDESONIDE 19390454554 No Longer Active Ian Valdez MD Active METFORMIN HCL 500 MG TB24 1 TAB PO Q HS METFORMIN HCL 45509895076 No Longer Active Ian Valdez MD Active CYCLOBENZAPRINE HCL 10 MG TABS 1 PO q 8 hrs PRN muscle spasm 2012 CYCLOBENZAPRINE HCL 68358873578 No Longer Active Ian Valdez MD Active AZITHROMYCIN 500 MG TABS 1 PO q day x 6 days AZITHROMYCIN 08008751432 No Longer Active Ian Valdez MD Active CIPRO 500 MG TAB 1 tablet by mouth twice daily CIPROFLOXACIN HCL 65503898029 No Longer Active Ian Valdez MD Active PREDNISONE 20 MG TABS 3 qd x 2d, 2 qd x 2d, 1 qd x 2d, 1/2 qd x 2d PREDNISONE 07912284694 No Longer Active Law FIGUEROA Active CELEXA 40 MG TABS 2 PO DAILY CITALOPRAM HYDROBROMIDE 05427058771 Active Ian Valdez MD Active OMEPRAZOLE 20 MG CPDR 1 tablet by mouth daily OMEPRAZOLE 63870983573 No Longer Active [place] FIGUEROA Active KLONOPIN 0.5 MG TABS 1 TABLET PO PRN CLONAZEPAM 02566729615 No Longer Active [place] FIGUEROA Active MOBIC 7.5 MG TABS 1 tablet by mouthonce a day MELOXICAM 35737590463 No Longer Active [place] FIGUEROA Active ZITHROMAX 1 GM PACK DIRECTED AZITHROMYCIN 66172014114 No Longer Active Ian Valdez MD Active ALBUTEROL SULFATE 0.083 % NEBU SOLN one vial per nebulizer every 4-6 hours as needed ALBUTEROL SULFATE 40240068922 Active Ian Valdez MD Active CHANTIX STARTING MONTH REBEKAH 0.5 MG X 11 & 1 MG X 42 TABS 0.5mg daily for 3 days , then 0.5mg BID for 4 days, then 1mg BID VARENICLINE TARTRATE 24280219090 No Longer Active Ian Valdez MD Active ZITHROMAX 1 GM PACK DIRECTED AZITHROMYCIN 09752027990 No Longer Active Ian Valdez MD Active AURALGAN 1.4-5.5 % SOLN BENZOCAINE-ANTIPYRINE 60415467027 No Longer Active Ian Valdez MD Active PREDNISONE 20 MG TAB 3 tabs daily for 3 days, 2 tab daily for 3 days, 1 tab daily for 2 days, then 1/2 tab dialy for 2 days PREDNISONE 00097996798 No Longer Active Ian Valdez MD Active SIMVASTATIN 40 MG TABS 1 TABLET PO Q HS SIMVASTATIN 48948136392 Active Ian Valdez MD Active SIMVASTATIN 80 MG TABS Take one by mouth daily SIMVASTATIN 72530316157 No Longer Active Ian Valdze MD Active PREDNISONE 20 MG TAB 2 tabs daily for 3 days, 1 tab daily for 3 days, 1/2 tab daily for 2 days PREDNISONE 71241638948 No Longer Active Ian Valdez MD Active ZITHROMAX 250 MG TAB 2 po today, then 1 po q days 2-5 AZITHROMYCIN 03899776157 No Longer Active Ian Valdez MD Active TRAZODONE HCL 100 MG TABS 2 TABS PO Q HS TRAZODONE HCL 30476727624 Active Ian Valdez MD Active ZITHROMAX 250 MG TAB 2 po today, then 1 po q days 2-5 AZITHROMYCIN 85862010890 No Longer Active Ian Valdez MD Active SIMVASTATIN 80 MG TABS Take one by mouth daily SIMVASTATIN 80 MG TABS 678455 SIMVASTATIN Inactive AURALGAN 1.4-5.5 % SOLN AURALGAN 1.4-5.5 % SOLN BENZOCAINE-ANTIPYRINE Inactive ZITHROMAX 1 GM PACK DIRECTED ZITHROMAX 1 GM PACK 311665 AZITHROMYCIN Inactive CHANTIX STARTING MONTH REBEKAH 0.5 MG X 11 & 1 MG X 42 TABS 0.5mg daily for 3 days , then 0.5mg BID for 4 days, then 1mg BID CHANTIX STARTING MONTH REBEKAH 0.5 MG X 11 & 1 MG X 42 TABS VARENICLINE TARTRATE Inactive ZITHROMAX 1 GM PACK DIRECTED ZITHROMAX 1 GM PACK 552187 AZITHROMYCIN Inactive MOBIC 7.5 MG TABS 1 tablet by mouthonce a day MOBIC 7.5 MG TABS 236544 MELOXICAM Inactive KLONOPIN 0.5 MG TABS 1 TABLET PO PRN KLONOPIN 0.5 MG TABS 569227 CLONAZEPAM Inactive CIPRO 500 MG TAB 1 tablet by mouth twice daily CIPRO 500 MG TAB 116584 CIPROFLOXACIN HCL Inactive AZITHROMYCIN 500 MG TABS 1 PO q day x 6 days AZITHROMYCIN 500 MG TABS 7192370 AZITHROMYCIN Inactive CYCLOBENZAPRINE HCL 10 MG TABS 1 PO q 8 hrs PRN muscle spasm 2012 CYCLOBENZAPRINE HCL 10 MG TABS 065732 CYCLOBENZAPRINE HCL Inactive METFORMIN HCL 500 MG [...] bid prn anxiety. XANAX 0.25 MG TABS 543494 ALPRAZOLAM Inactive LAMISIL AT 1 % CREA apply bid to rash LAMISIL AT 1 % CREA 722774 TERBINAFINE HCL Inactive TOPAMAX 25 MG TABS 1 tab po qhs x 1 week, then take 2 tabs po qhs TOPAMAX 25 MG TABS 354032 TOPIRAMATE Inactive TERBINAFINE HCL 1 % CREA Apply bid to rash TERBINAFINE HCL 1 % CREA 849043 TERBINAFINE HCL Inactive ZITHROMAX 250 MG TAB 2 po today, then 1 po q days 2-5 ZITHROMAX 250 MG TAB 6366950 AZITHROMYCIN Inactive ZITHROMAX 250 MG TAB 2 po today, then 1 po q days 2-5 ZITHROMAX 250 MG TAB 4873863 AZITHROMYCIN Inactive PREDNISONE 20 MG TAB 2 tabs daily for 3 days, 1 tab daily for 3 days, 1/2 tab daily for 2 days PREDNISONE 20 MG TAB 793668 PREDNISONE Inactive PREDNISONE 20 MG TAB 3 tabs daily for 3 days, 2 tab daily for 3 days, 1 tab daily for 2 days, then 1/2 tab dialy for 2 days PREDNISONE 20 MG TAB 657109 PREDNISONE Inactive OMEPRAZOLE 20 MG CPDR 1 tablet by mouth daily OMEPRAZOLE 20 MG CPDR 939034 OMEPRAZOLE Inactive PREDNISONE 20 MG TABS 3 qd x 2d, 2 qd x 2d, 1 qd x 2d, 1/2 qd x 2d PREDNISONE 20 MG TABS 235025 PREDNISONE Inactive TERBINAFINE HCL 250 MG TABS 1 qDay TERBINAFINE HCL 250 MG TABS 247681 TERBINAFINE HCL Inactive DOXYCYCLINE HYCLATE 100 MG [...] and acellular pertussis vaccine, adsorbed), booster Boostrix [[id number]] tetanus toxoid, reduced diphtheria toxoid, and acellular [...] 1.44 m[iU]/mL 0.36-3.74 cholesterol, serum 144 mg/dL 952-549 8222/11/19 triglyceride, serum, fasting 172 mg/dL 30-200 HDL cholesterol, serum 30 mg/dL 32-96 LDL cholesterol, serum 80 mg/dL 0-130 sodium, serum 137 mmol/L 086-974 9318/11/19 potassium, serum 4.1 mmol/L 3.5-5.2 chloride, serum [...] mg/dL Encounters Code Encounter Date Provider Facility CPT-26336 Level 3 Est. Patient 20:15:16 CDT Ian Valdez MD [facility] CPT-81441 Level 3 Est. Patient 13:49:34 CDT Ian Valdez MD [facility]-60685 Level 3 Est. Patient 15:50:27 AIR POLLUTION AUDITOR Najma Vaughn APRN [facility]-25955 Level 4 Est. Patient 21:20:00 AIR POLLUTION AUDITOR Ian Valdez MD [facility]-51292 Level 3 Est. Patient 15:32:41 AIR POLLUTION AUDITOR Juan Smith MD [facility]-05761 Level 3 Est. Patient 14:45:01 CDT Eva Ferrara MD PhD [facility]-85229 Level 3 Est. Patient 14:54:10 CDT Ian Valdez MD [facility]-68284 Level 4 Est. Patient 20:36:52 CDT Ian Valdez MD [facility]-51598 Level 4 Est. Patient 11:14:30 AIR POLLUTION AUDITOR Ian Valdez MD [facility]-58862 Level 3 Est. Patient 19:08:34 AIR POLLUTION AUDITOR Ian Valdez MD [facility]-46150 Level 3 Est. Patient 13:17:39 AIR POLLUTION AUDITOR Ian Valdez MD [facility]-18463 Level 4 Est. Patient 18:56:10 CDT Ian Valdez MD [facility]-58928 Level 4 Est. Patient 16:55:56 CDT Ian Valdez MD [facility]-90869 Level 3 Est. Patient 11:27:07 CDT Ian Valdez MD [facility]-40001 Level 3 Est. Patient 15:17:44 CDT Law FIGUEROA [facility]-94916 Level 4 Est. Patient 15:13:53 CDT [place] FIGUEROA [facility] CPT-37059 Level 3 Est. Patient 14:25:12 AIR POLLUTION AUDITOR Ian Valdez MD [facility] CPT-73356 Level 3 Est. Patient 10:24:46 CDT Ian Valdez MD [facility] CPT-76241 Level 3 Est. Patient 15:34:19 CDT Ian Valdez MD [facility] CPT-40984 Level 3 Est. Patient 14:22:41 CDT Ian Valdez MD [facility] CPT-51727 Level 3 Est. Patient 15:07:22 AIR POLLUTION AUDITOR Ian Valdez MD [facility] CPT-08153 Level 3 New Patient 09:06:43 AIR POLLUTION AUDITOR Ian Valdez MD [facility] CPT-47068 Level 3 Est. Patient 15:09:00 AIR POLLUTION AUDITOR Ian Valdez MD [facility] Procedures Code Procedure Name Date Entry Date Standard Description CPT-OV Office Visit 16:24:22 CDT CPT-OV Office Visit 15:15:29 AIR POLLUTION AUDITOR CPT-OV Office Visit 15:49:26 AIR POLLUTION AUDITOR CPT-J1885 Toradol 60 mg (Ketorolac) 15:37:32 CDT CPT-76321 Abx/Therapy Injection 15:37:32 CDT CPT-J1885 Toradol 60 mg (Ketorolac) 14:45:01 CDT CPT-OV Office Visit 15:19:52 CDT CPT-OV Office Visit 10:41:01 CDT CPT-92682 Core biop breast wo imaging 16:50:06 CDT CPT-OV Office Visit 16:50:05 CDT CPT-93021 UHCG (floor use only) 13:39:36 CDT CPT-17203 Nexplanon Placement 10:11:48 CDT CPT-J7307 Nexplanon (Implant) 10:11:48 CDT CPT-OV Office Visit 09:54:18 CDT CPT-61780 EKG Trac and Interp 16:50:19 CDT CPT-45672 Venipuncture Draw Fee 15:06:08 CDT CPT-J2930 Solu Medrol 125 mg (Methyl Prednisolone Sodium Succinate) 12:44:46 CDT CPT-J1055 Depo Provera 150 mg (Medroxyprogesterone) 12:44:46 CDT CPT-79353 Abx/Therapy Injection 12:44:46 CDT CPT-J1055 Depo Provera 150 mg (Medroxyprogesterone) 14:28:41 CDT CPT-J2930 Solu Medrol 125 mg (Methyl Prednisolone Sodium Succinate) 14:22:41 CDT CPT-34120 Administration single or combination vaccine inc oral 10 :08:06 CDT CPT-27225 Tdap 10:08:06 CDT CPT-G0402 Wlcm To Medicare Ex 22:17:30 CDT CPT-28791 Venipuncture Draw Fee 10:33:07 AIR POLLUTION AUDITOR CPT-07754 Venipuncture Draw Fee 10:17:37 AIR POLLUTION AUDITOR CPT-G0403 EKG Wlc To Medicare 22:17:30 CDT
--- OUTSIDE RECORDS SUMMARY | 2018-07-17 21:28 | XMS REPORT | Clinical Summary ---
Author Author Admin, ARIAN Organization [facility] Address Unknown Phone Unavailable Allergies, Adverse [...] not stated as uncontrolled HYPERLIPIDEMIA 272.4 Active Ina Valdez MD Other and unspecified hyperlipidemia BIPOLAR [...] in breast Influenza like illness 487.1 Resolved Tohm Gilbert MD Influenza with other respiratory manifestations [...] MD Influenza like illness ICD-487.1 Inactive Thom Giblert MD Medication List Medication Instructions Start Date Stop Date Generic Name NDC Status Provider Patient Instruction MAGNESIUM CITRATE 1.745 GM/30ML ORAL SOLN 150ml po BID PRN Constipation 10/07 MAGNESIUM CITRATE 18448249460 Active Ian Valdez MD Active DICLOFENAC SODIUM 50 MG ORAL TBEC TID PRN DICLOFENAC SODIUM 95636364972 Active Ian Valdez MD Active BUSPIRONE HCL 7.5 MG ORAL TABS 1 TAB PO BID PRN ANXIETY BUSPIRONE HCL 26844059367 Active Herminia Bear Active MEDROL (REBEKAH) 4 MG TABS 6 tabs on day 1, 5 tabs on day 2, 4 tabs on day 3, 3 tabs on day 4, 2 tabs on day 5, 1 tab on day 6 METHYLPREDNISOLONE 79608468975 No Longer Active Herminia Chema Active MELOXICAM 15 MG TABS 1 po q day for pain with food MELOXICAM 15775532645 Active Ian Valdez MD Active DOXYCYCLINE HYCLATE 100 MG CAP 1 cap by mouth twice daily DOXYCYCLINE HYCLATE 29096508713 No Longer Active Najma Vaughn SAMI Active MULTIVITAMINS CAPS 1 tablet daily MULTIPLE VITAMIN 71146191942 Active Juan Smith MD Active CYCLOBENZAPRINE HCL 10 MG TABS 1/2 - 1 tab by mouth three times daily if needed for spasms/pain CYCLOBENZAPRINE HCL 89942915542 Active Ian Valdez MD Active GLUCOPHAGE 500 MG TABS 1 tab BID with morning and night meals METFORMIN HCL 52193668671 Active Eva Ferrara MD PhD Active PROGESTERONE MICRONIZED 100 MG CAPS 2 caps daily day 16 thru 25 of cycle 2013 PROGESTERONE MICRONIZED 16405191456 Active Eva Ferrara MD PhD Active TERBINAFINE HCL 1 % CREA Apply bid to rash TERBINAFINE HCL 63191217690 No Longer Active Eva Ferrara MD PhD Active TOPAMAX 25 MG TABS 1 tab po qhs x 1 week, then take 2 tabs po qhs TOPIRAMATE 72105355297 No Longer Active Thom Gilbert MD Active ULTRAM 50 MG TAB take 1 tab po q6hrs prn pain TRAMADOL HCL 67066569300 Active Ian Valdez MD Active LAMISIL AT 1 % CREA apply bid to rash TERBINAFINE HCL 40792127623 No Longer Active Thom Gilbert MD Active TERBINAFINE HCL 250 MG TABS 1 qDay TERBINAFINE HCL 68123962865 No Longer Active Ian Valdez MD Active XANAX 0.25 MG TABS take 1 tab po bid prn anxiety. ALPRAZOLAM 86152732013 No Longer Active Ian Valdez MD Active FISH OIL 1000 MG CAPS 2 caps PO once daily at bedtime OMEGA-3 FATTY ACIDS 32442795818 No Longer Active Ian Valdez MD Active KLOR-CON M20 20 MEQ CR-TABS take 1 tab po qday with lasix POTASSIUM CHLORIDE GALILEO CR 01551811519 Active Ian Valdez MD Active LASIX 20 MG TAB 1 tablet by mouth daily prn swelling FUROSEMIDE 50041974442 Active Ian Valdez MD Active FLONASE 50 MCG/ACT SUSP 2 puffs in each nostril once daily at bedtime FLUTICASONE PROPIONATE 59852818152 Active Ian Valdez MD Active [facility] MELATONIN 3 MG TABS 2 tabs PO at bedtime MELATONIN 50136516303 Active Ian Valdez MD Active PULMICORT FLEXHALER 180 MCG/ACT AEPB 2 INH BID BUDESONIDE 44335638520 No Longer Active Ian Valdez MD Active METFORMIN HCL 500 MG TB24 1 TAB PO Q HS METFORMIN HCL 42485732964 No Longer Active Ian Valdez MD Active CYCLOBENZAPRINE HCL 10 MG TABS 1 PO q 8 hrs PRN muscle spasm 2012 CYCLOBENZAPRINE HCL 37615174374 No Longer Active Ian Valdez MD Active AZITHROMYCIN 500 MG TABS 1 PO q day x 6 days AZITHROMYCIN 67233644690 No Longer Active Ian Valdez MD Active CIPRO 500 MG TAB 1 tablet by mouth twice daily CIPROFLOXACIN HCL 19058271052 No Longer Active Ian Valdez MD Active PREDNISONE 20 MG TABS 3 qd x 2d, 2 qd x 2d, 1 qd x 2d, 1/2 qd x 2d PREDNISONE 75128052477 No Longer Active Law FIGUEROA Active CELEXA 40 MG TABS 2 PO DAILY CITALOPRAM HYDROBROMIDE 85247955423 Active Ian Valdez MD Active OMEPRAZOLE 20 MG CPDR 1 tablet by mouth daily OMEPRAZOLE 74308296140 No Longer Active [place] FIGUEROA Active KLONOPIN 0.5 MG TABS 1 TABLET PO PRN CLONAZEPAM 06738692443 No Longer Active Wellington FIGUEROA Active MOBIC 7.5 MG TABS 1 tablet by mouthonce a day MELOXICAM 99500756894 No Longer Active [place] FIGUEROA Active ZITHROMAX 1 GM PACK DIRECTED AZITHROMYCIN 53082552405 No Longer Active Ian Valdez MD Active ALBUTEROL SULFATE 0.083 % NEBU SOLN one vial per nebulizer every 4-6 hours as needed ALBUTEROL SULFATE 05782749775 Active Ian Valdez MD Active CHANTIX STARTING MONTH REBEKAH 0.5 MG X 11 & 1 MG X 42 TABS 0.5mg daily for 3 days , then 0.5mg BID for 4 days, then 1mg BID VARENICLINE TARTRATE 36049824404 No Longer Active Ian Valdez MD Active ZITHROMAX 1 GM PACK DIRECTED AZITHROMYCIN 77300193012 No Longer Active Ian Valdez MD Active AURALGAN 1.4-5.5 % SOLN BENZOCAINE-ANTIPYRINE 75689628645 No Longer Active Ian Valdez MD Active PREDNISONE 20 MG TAB 3 tabs daily for 3 days, 2 tab daily for 3 days, 1 tab daily for 2 days, then 1/2 tab dialy for 2 days PREDNISONE 43606897928 No Longer Active Ian Valdez MD Active SIMVASTATIN 40 MG TABS 1 TABLET PO Q HS SIMVASTATIN 96429916189 Active Ian Valdez MD Active SIMVASTATIN 80 MG TABS Take one by mouth daily SIMVASTATIN 38549250145 No Longer Active Ian Valdez MD Active PREDNISONE 20 MG TAB 2 tabs daily for 3 days, 1 tab daily for 3 days, 1/2 tab daily for 2 days PREDNISONE 80100110334 No Longer Active Ian Valdez MD Active ZITHROMAX 250 MG TAB 2 po today, then 1 po q days 2-5 AZITHROMYCIN 62456277757 No Longer Active Ian Valdez MD Active TRAZODONE HCL 100 MG TABS 2 TABS PO Q HS TRAZODONE HCL 64777209677 Active Ian Valdez MD Active ZITHROMAX 250 MG TAB 2 po today, then 1 po q days 2-5 AZITHROMYCIN 54012289659 No Longer Active aIn Valdez MD Active SIMVASTATIN 80 MG TABS Take one by mouth daily SIMVASTATIN 80 MG TABS 766177 SIMVASTATIN Inactive AURALGAN 1.4-5.5 % SOLN AURALGAN 1.4-5.5 % SOLN BENZOCAINE-ANTIPYRINE Inactive ZITHROMAX 1 GM PACK DIRECTED ZITHROMAX 1 GM PACK 792296 AZITHROMYCIN Inactive CHANTIX STARTING MONTH REBEKAH 0.5 MG X 11 & 1 MG X 42 TABS 0.5mg daily for 3 days , then 0.5mg BID for 4 days, then 1mg BID CHANTIX STARTING MONTH REBEKAH 0.5 MG X 11 & 1 MG X 42 TABS VARENICLINE TARTRATE Inactive ZITHROMAX 1 GM PACK DIRECTED ZITHROMAX 1 GM PACK 786979 AZITHROMYCIN Inactive MOBIC 7.5 MG TABS 1 tablet by mouthonce a day MOBIC 7.5 MG TABS 597062 MELOXICAM Inactive KLONOPIN 0.5 MG TABS 1 TABLET PO PRN KLONOPIN 0.5 MG TABS 780292 CLONAZEPAM Inactive CIPRO 500 MG TAB 1 tablet by mouth twice daily CIPRO 500 MG TAB 191844 CIPROFLOXACIN HCL Inactive AZITHROMYCIN 500 MG TABS 1 PO q day x 6 days AZITHROMYCIN 500 MG TABS 3959908 AZITHROMYCIN Inactive CYCLOBENZAPRINE HCL 10 MG TABS 1 PO q 8 hrs PRN muscle spasm 2012 CYCLOBENZAPRINE HCL 10 MG TABS 443252 CYCLOBENZAPRINE HCL Inactive METFORMIN HCL 500 MG [...] bid prn anxiety. XANAX 0.25 MG TABS 027064 ALPRAZOLAM Inactive LAMISIL AT 1 % CREA apply bid to rash LAMISIL AT 1 % CREA 564008 TERBINAFINE HCL Inactive TOPAMAX 25 MG TABS 1 tab po qhs x 1 week, then take 2 tabs po qhs TOPAMAX 25 MG TABS 305554 TOPIRAMATE Inactive TERBINAFINE HCL 1 % CREA Apply bid to rash TERBINAFINE HCL 1 % CREA 454472 TERBINAFINE HCL Inactive ZITHROMAX 250 MG TAB 2 po today, then 1 po q days 2-5 ZITHROMAX 250 MG TAB 0728242 AZITHROMYCIN Inactive ZITHROMAX 250 MG TAB 2 po today, then 1 po q days 2-5 ZITHROMAX 250 MG TAB 0126091 AZITHROMYCIN Inactive PREDNISONE 20 MG TAB 2 tabs daily for 3 days, 1 tab daily for 3 days, 1/2 tab daily for 2 days PREDNISONE 20 MG TAB 660772 PREDNISONE Inactive PREDNISONE 20 MG TAB 3 tabs daily for 3 days, 2 tab daily for 3 days, 1 tab daily for 2 days, then 1/2 tab dialy for 2 days PREDNISONE 20 MG TAB 388814 PREDNISONE Inactive OMEPRAZOLE 20 MG CPDR 1 tablet by mouth daily OMEPRAZOLE 20 MG CPDR 399101 OMEPRAZOLE Inactive PREDNISONE 20 MG TABS 3 qd x 2d, 2 qd x 2d, 1 qd x 2d, 1/2 qd x 2d PREDNISONE 20 MG TABS 504082 PREDNISONE Inactive TERBINAFINE HCL 250 MG TABS 1 qDay TERBINAFINE HCL 250 MG TABS 145134 TERBINAFINE HCL Inactive DOXYCYCLINE HYCLATE 100 MG CAP 1 cap by mouth twice daily DOXYCYCLINE HYCLATE 100 MG CAP 9019711 DOXYCYCLINE HYCLATE Inactive MEDROL (REBEKAH) 4 MG [...] and acellular pertussis vaccine, adsorbed), booster Boostrix [[id number]] tetanus toxoid, reduced diphtheria toxoid, and acellular [...] 1.44 m[iU]/mL 0.36-3.74 cholesterol, serum 144 mg/dL 042-063 5111/11/19 triglyceride, serum, fasting 172 mg/dL 30-200 HDL cholesterol, serum 30 mg/dL 32-96 LDL cholesterol, serum 80 mg/dL 0-130 sodium, serum 137 mmol/L 855-229 8227/11/19 potassium, serum 4.1 mmol/L 3.5-5.2 chloride, serum 100 mmol/L 98-107 carbon dioxide, venous blood 26.9 mmol/L 21.0-32.0 blood glucose 84 mg/dL 65-110 urea nitrogen, blood 11 mg/dL 7-18 creatinine, serum 0.90 mg/dL 0.60-1.30 alanine aminotransferase (SGPT), serum 23 U/L 12-78 aspartate aminotransferase (SGOT), serum 17 U/L 15-37 calcium, serum 9.5 mg/dL 8.5-10.1 bilirubin, serum, total 0.70 mg/dL 0.00-1.00 Lab Report: HIV-1/2 Agn/Ritu/64505, Chlamydia/GC APTIMA/16614 - Lab chlamydia DNA probe NOT DETECTED NOT DETECTED Lab Report: HIV-1/2 Agn/Ritu/60107, Chlamydia/GC APTIMA/02333 - Microbiology Neisseria gonorrhoeae DNA probe NOT DETECTED NOT DETECTED Lab Report: TONY INFLUENZA A/B - Toxicology rapid flu test Negative Negative;Positive Lab Report: [facility] [place] - Chemistry human chorionic gonadotropin, urine, qualitative (urine test) Negative Negative Office Visit: wellness exam for insurance/ diabetes check - Chemistry cholesterol, target level 200 mg/dL LDL target level 100 mg/dL HDL cholesterol, serum, target level 40 mg/dL triglyceride, target level 150 mg/dL Encounters Code Encounter Date Provider Facility CPT-00881 Level 3 Est. Patient 17:03:54 CDT Carlos Mccormack MD [facility] CPT-26934 Level 3 Est. Patient 20:15:16 CDT Ian Valdez MD [facility] CPT-93101 Level 3 Est. Patient 13:49:34 CDT Ian Valdez MD [facility] CPT-28691 Level 3 Est. Patient 15:50:27 [employer] Najma Vaughn APRN [facility] CPT-50785 Level 4 Est. Patient 21:20:00 [employer] Ian Valdez MD [facility] CPT-18600 Level 3 Est. Patient 15:32:41 [employer] Juan Smith MD [facility] CPT-80052 Level 3 Est. Patient 14:45:01 CDT Eva Ferrara MD PhD [facility] CPT-43695 Level 3 Est. Patient 14:54:10 CDT Ian Valdez MD [facility] CPT-06550 Level 4 Est. Patient 20:36:52 CDT Ian Valdez MD [facility] CPT-26365 Level 4 Est. Patient 11:14:30 [employer] Ian Valdez MD [facility] CPT-35283 Level 3 Est. Patient 19:08:34 [employer] Ian Valdez MD [facility] CPT-81436 Level 3 Est. Patient 13:17:39 [employer] Ian Valdez MD [facility] CPT-51532 Level 4 Est. Patient 18:56:10 CDT Ian Valdez MD [facility] CPT-52852 Level 4 Est. Patient 16:55:56 CDT Ian Valdez MD [facility] CPT-59865 Level 3 Est. Patient 11:27:07 CDT Ian Valdez MD [facility] CPT-18149 Level 3 Est. Patient 15:17:44 CDT Law Rosas [facility] CPT-40176 Level 4 Est. Patient 15:13:53 CDT Wellington Muniz [facility] CPT-99764 Level 3 Est. Patient 14:25:12 [employer] Ian Valdez MD [facility] CPT-40546 Level 3 Est. Patient 10:24:46 CDT Ian Valdez MD [facility] CPT-09605 Level 3 Est. Patient 15:34:19 CDT Ian Valdez MD [facility] CPT-95614 Level 3 Est. Patient 14:22:41 CDT Ian Valdez MD [facility] CPT-09774 Level 3 Est. Patient 15:07:22 [employer] Ian Valdez MD [facility] CPT-97359 Level 3 New Patient 09:06:43 [employer] Ian Valdez MD [facility] CPT-09113 Level 3 Est. Patient 15:09:00 [employer] Ian Valdez MD [facility] Procedures Code Procedure Name Date Entry Date Standard Description CPT-J1050 Depo Provera 150 mg (Medroxyprogesterone) 15:27:21 CDT CPT-11370 Abx/Therapy Injection 15:27:21 CDT CPT-38945 Abd compl w upright 17:11:01 CDT CPT-OV Office Visit 16:24:22 CDT CPT-OV Office Visit 15:15:29 [employer] CPT-OV Office Visit 15:49:26 [employer] CPT-J1885 Toradol 60 mg (Ketorolac) 15:37:32 CDT CPT-15161 Abx/Therapy Injection 15:37:32 CDT CPT-J1885 Toradol 60 mg (Ketorolac) 14:45:01 CDT CPT-OV Office Visit 15:19:52 CDT CPT-OV Office Visit 10:41:01 CDT CPT-33539 Core biop breast wo imaging 16:50:06 CDT CPT-OV Office Visit 16:50:05 CDT CPT-07514 UHCG (floor use only) 13:39:36 CDT CPT-74174 Nexplanon Placement 10:11:48 CDT CPT-J7307 Nexplanon (Implant) 10:11:48 CDT CPT-OV Office Visit 09:54:18 CDT CPT-01649 EKG Trac and Interp 16:50:19 CDT CPT-51505 Venipuncture Draw Fee 15:06:08 CDT CPT-J2930 Solu Medrol 125 mg (Methyl Prednisolone Sodium Succinate) 12:44:46 CDT CPT-J1055 Depo Provera 150 mg (Medroxyprogesterone) 12:44:46 CDT CPT-64629 Abx/Therapy Injection 12:44:46 CDT CPT-J1055 Depo Provera 150 mg (Medroxyprogesterone) 14:28:41 CDT CPT-J2930 Solu Medrol 125 mg (Methyl Prednisolone Sodium Succinate) 14:22:41 CDT CPT-23952 Administration single or combination vaccine inc oral 10 :08:06 CDT CPT-10658 Tdap 10:08:06 CDT CPT-G0402 Wlcm To Medicare Ex 22:17:30 CDT CPT-22335 Venipuncture Draw Fee 10:33:07 [employer] CPT-59429 Venipuncture Draw Fee 10:17:37 [employer] CPT-G0403 EKG Wlc To Medicare 22:17:30 CDT
--- OUTSIDE RECORDS SUMMARY | 2018-07-17 21:29 | XMS REPORT | Clinical Summary ---
[...] 726.32 Active Ian Valdez MD Lateral epicondylitis SINUSITIS ICD-473.9 Inactive Ian Valdez MD SCABIES [...] q day for pain with food MELOXICAM 40487364967 Active Ian Valdez MD Active DOXYCYCLINE HYCLATE 100 MG CAP 1 cap by mouth twice daily DOXYCYCLINE HYCLATE 94728894954 No Longer Active Najma Vaughn SAMI Active MULTIVITAMINS CAPS 1 tablet daily MULTIPLE VITAMIN 18134195757 Active Juan Smith MD Active CYCLOBENZAPRINE HCL 10 MG TABS 1/2 - 1 tab by mouth three times daily if needed for spasms/pain CYCLOBENZAPRINE HCL 85894637216 Active Ian Valdez MD Active GLUCOPHAGE 500 MG TABS 1 tab BID with morning and night meals METFORMIN HCL 35237862338 Active Eva Ferrara MD PhD Active PROGESTERONE MICRONIZED 100 MG CAPS 2 caps daily day 16 thru 25 of cycle 2013 PROGESTERONE MICRONIZED 92098508224 Active Eva Ferrara MD PhD Active TERBINAFINE HCL 1 % CREA Apply bid to rash TERBINAFINE HCL 48322011668 No Longer Active Eva Ferrara MD PhD Active TOPAMAX 25 MG TABS 1 tab po qhs x 1 week, then take 2 tabs po qhs TOPIRAMATE 20263815269 No Longer Active Thom Gilbert MD Active ULTRAM 50 MG TAB take 1 tab po q6hrs prn pain TRAMADOL HCL 64067064967 Active Ian Valdez MD Active LAMISIL AT 1 % CREA apply bid to rash TERBINAFINE HCL 16436413140 No Longer Active Thom Gilbert MD Active TERBINAFINE HCL 250 MG TABS 1 qDay TERBINAFINE HCL 23360099374 No Longer Active Ian Valdez MD Active XANAX 0.25 MG TABS take 1 tab po bid prn anxiety. ALPRAZOLAM 59068288641 No Longer Active Ian Valdez MD Active FISH OIL 1000 MG CAPS 2 caps PO once daily at bedtime OMEGA-3 FATTY ACIDS 02963947440 No Longer Active Ian Valdez MD Active KLOR-CON M20 20 MEQ CR-TABS take 1 tab po qday with lasix POTASSIUM CHLORIDE GALILEO CR 85759630300 Active Ian Valdez MD Active LASIX 20 MG TAB 1 tablet by mouth daily prn swelling FUROSEMIDE 97526104710 Active Ian Valdez MD Active FLONASE 50 MCG/ACT SUSP 2 puffs in each nostril once daily at bedtime FLUTICASONE PROPIONATE 18085288822 Active Ian Valdez MD Active CVS MELATONIN 3 MG TABS 2 tabs PO at bedtime MELATONIN 29743694058 Active Ian Valdez MD Active PULMICORT FLEXHALER 180 MCG/ACT AEPB 2 INH BID BUDESONIDE 34018323552 No Longer Active Ian Valdez MD Active METFORMIN HCL 500 MG TB24 1 TAB PO Q HS METFORMIN HCL 72082429427 No Longer Active Ian Valdez MD Active CYCLOBENZAPRINE HCL 10 MG TABS 1 PO q 8 hrs PRN muscle spasm 2012 CYCLOBENZAPRINE HCL 23698984536 No Longer Active Ian Valdez MD Active AZITHROMYCIN 500 MG TABS 1 PO q day x 6 days AZITHROMYCIN 83223386299 No Longer Active Ian Valdez MD Active CIPRO 500 MG TAB 1 tablet by mouth twice daily CIPROFLOXACIN HCL 42078415950 No Longer Active Ian Valdez MD Active PREDNISONE 20 MG TABS 3 qd x 2d, 2 qd x 2d, 1 qd x 2d, 1/2 qd x 2d PREDNISONE 36557961594 No Longer Active Law FIGUEROA Active CELEXA 40 MG TABS 2 PO DAILY CITALOPRAM HYDROBROMIDE 40155777346 Active Ian Valdez MD Active OMEPRAZOLE 20 MG CPDR 1 tablet by mouth daily OMEPRAZOLE 64318910631 No Longer Active [place] FIGUEROA Active KLONOPIN 0.5 MG TABS 1 TABLET PO PRN CLONAZEPAM 72926264737 No Longer Active [place] FIGUEROA Active MOBIC 7.5 MG TABS 1 tablet by mouthonce a day MELOXICAM 26871444376 No Longer Active [place] FIGUEROA Active ZITHROMAX 1 GM PACK DIRECTED AZITHROMYCIN 65991797450 No Longer Active Ian Valdez MD Active ALBUTEROL SULFATE 0.083 % NEBU SOLN one vial per nebulizer every 4-6 hours as needed ALBUTEROL SULFATE 76815864519 Active Ian Valdez MD Active CHANTIX STARTING MONTH REBEKAH 0.5 MG X 11 & 1 MG X 42 TABS 0.5mg daily for 3 days , then 0.5mg BID for 4 days, then 1mg BID VARENICLINE TARTRATE 85627059537 No Longer Active Ian Valdez MD Active ZITHROMAX 1 GM PACK DIRECTED AZITHROMYCIN 37200312678 No Longer Active Ian Valdez MD Active AURALGAN 1.4-5.5 % SOLN BENZOCAINE-ANTIPYRINE 31033780139 No Longer Active Ian Valdez MD Active PREDNISONE 20 MG TAB 3 tabs daily for 3 days, 2 tab daily for 3 days, 1 tab daily for 2 days, then 1/2 tab dialy for 2 days PREDNISONE 36116112997 No Longer Active Ian Valdez MD Active SIMVASTATIN 40 MG TABS 1 TABLET PO Q HS SIMVASTATIN 22395182046 Active Ian Valdez MD Active SIMVASTATIN 80 MG TABS Take one by mouth daily SIMVASTATIN 13069525460 No Longer Active Ian Valdez MD Active PREDNISONE 20 MG TAB 2 tabs daily for 3 days, 1 tab daily for 3 days, 1/2 tab daily for 2 days PREDNISONE 31510075861 No Longer Active Ian Valdez MD Active ZITHROMAX 250 MG TAB 2 po today, then 1 po q days 2-5 AZITHROMYCIN 07248927897 No Longer Active Ian Valdez MD Active TRAZODONE HCL 100 MG TABS 2 TABS PO Q HS TRAZODONE HCL 78037534338 Active Ian Valdez MD Active ZITHROMAX 250 MG TAB 2 po today, then 1 po q days 2-5 AZITHROMYCIN 62573626398 No Longer Active Ian Valdez MD Active SIMVASTATIN 80 MG TABS Take one by mouth daily SIMVASTATIN 80 MG TABS 493323 SIMVASTATIN Inactive AURALGAN 1.4-5.5 % SOLN AURALGAN 1.4-5.5 % SOLN BENZOCAINE-ANTIPYRINE Inactive ZITHROMAX 1 GM PACK DIRECTED ZITHROMAX 1 GM PACK 762672 AZITHROMYCIN Inactive CHANTIX STARTING MONTH REBEKAH 0.5 MG X 11 & 1 MG X 42 TABS 0.5mg daily for 3 days , then 0.5mg BID for 4 days, then 1mg BID CHANTIX STARTING MONTH REBEKAH 0.5 MG X 11 & 1 MG X 42 TABS VARENICLINE TARTRATE Inactive ZITHROMAX 1 GM PACK DIRECTED ZITHROMAX 1 GM PACK 084258 AZITHROMYCIN Inactive MOBIC 7.5 MG TABS 1 tablet by mouthonce a day MOBIC 7.5 MG TABS 484761 MELOXICAM Inactive KLONOPIN 0.5 MG TABS 1 TABLET PO PRN KLONOPIN 0.5 MG TABS 563940 CLONAZEPAM Inactive CIPRO 500 MG TAB 1 tablet by mouth twice daily CIPRO 500 MG TAB 774550 CIPROFLOXACIN HCL Inactive AZITHROMYCIN 500 MG TABS 1 PO q day x 6 days AZITHROMYCIN 500 MG TABS 4038608 AZITHROMYCIN Inactive CYCLOBENZAPRINE HCL 10 MG TABS 1 PO q 8 hrs PRN muscle spasm 2012 CYCLOBENZAPRINE HCL 10 MG TABS 654177 CYCLOBENZAPRINE HCL Inactive METFORMIN HCL 500 MG [...] bid prn anxiety. XANAX 0.25 MG TABS 996880 ALPRAZOLAM Inactive LAMISIL AT 1 % CREA apply bid to rash LAMISIL AT 1 % CREA 450553 TERBINAFINE HCL Inactive TOPAMAX 25 MG TABS 1 tab po qhs x 1 week, then take 2 tabs po qhs TOPAMAX 25 MG TABS 667427 TOPIRAMATE Inactive TERBINAFINE HCL 1 % CREA Apply bid to rash TERBINAFINE HCL 1 % CREA 414549 TERBINAFINE HCL Inactive ZITHROMAX 250 MG TAB 2 po today, then 1 po q days 2-5 ZITHROMAX 250 MG TAB 6168777 AZITHROMYCIN Inactive ZITHROMAX 250 MG TAB 2 po today, then 1 po q days 2-5 ZITHROMAX 250 MG TAB 9810790 AZITHROMYCIN Inactive PREDNISONE 20 MG TAB 2 tabs daily for 3 days, 1 tab daily for 3 days, 1/2 tab daily for 2 days PREDNISONE 20 MG TAB 376002 PREDNISONE Inactive PREDNISONE 20 MG TAB 3 tabs daily for 3 days, 2 tab daily for 3 days, 1 tab daily for 2 days, then 1/2 tab dialy for 2 days PREDNISONE 20 MG TAB 448280 PREDNISONE Inactive OMEPRAZOLE 20 MG CPDR 1 tablet by mouth daily OMEPRAZOLE 20 MG CPDR 852119 OMEPRAZOLE Inactive PREDNISONE 20 MG TABS 3 qd x 2d, 2 qd x 2d, 1 qd x 2d, 1/2 qd x 2d PREDNISONE 20 MG TABS 791017 PREDNISONE Inactive TERBINAFINE HCL 250 MG TABS 1 qDay TERBINAFINE HCL 250 MG TABS 042987 TERBINAFINE HCL Inactive DOXYCYCLINE HYCLATE 100 MG CAP 1 cap by mouth twice daily DOXYCYCLINE HYCLATE 100 MG CAP 387274 DOXYCYCLINE HYCLATE Inactive Advance Directives Directive Description Start Date NO HEROIC MEASURES Immunizations Vaccine Administration Date Value Standard Description Boostrix (Tetanus toxoid, reduced diphtheria toxoid and acellular pertussis vaccine, adsorbed), booster Boostrix [[id number]] tetanus toxoid, reduced diphtheria toxoid, and acellular pertussis vaccine, adsorbed Vital Signs Date Name Value Unit Range Description blood pressure, diastolic - 8462-4 79 mm[Hg] [...] 1.44 m[iU]/mL 0.36-3.74 cholesterol, serum 144 mg/dL 798-680 6702/11/19 triglyceride, serum, fasting 172 mg/dL 30-200 HDL cholesterol, serum 30 mg/dL 32-96 LDL cholesterol, serum 80 mg/dL 0-130 sodium, serum 137 mmol/L 018-024 0158/11/19 potassium, serum 4.1 mmol/L 3.5-5.2 chloride, serum [...] mg/dL Encounters Code Encounter Date Provider Facility CPT-22873 Level 3 Est. Patient 13:49:34 CDT Ian Valdez MD [facility] CPT-16343 Level 3 Est. Patient 15:50:27 FINISH CARPENTER Najma Vaughn APRN [facility] CPT-66513 Level 4 Est. Patient 21:20:00 FINISH CARPENTER Ian Valdez MD [facility] CPT-86774 Level 3 Est. Patient 15:32:41 FINISH CARPENTER Juan Smith MD [facility] CPT-35009 Level 3 Est. Patient 14:45:01 CDT Eva Ferrara MD PhD [facility] CPT-59619 Level 3 Est. Patient 14:54:10 CDT Ian Valdez MD [facility] CPT-33595 Level 4 Est. Patient 20:36:52 CDT Ian Valdez MD [facility] CPT-71266 Level 4 Est. Patient 11:14:30 FINISH CARPENTER Ian Valdez MD [facility] CPT-32703 Level 3 Est. Patient 19:08:34 FINISH CARPENTER Ian Valdez MD [facility] CPT-27357 Level 3 Est. Patient 13:17:39 FINISH CARPENTER Ian Valdez MD [facility] CPT-32338 Level 4 Est. Patient 18:56:10 CDT Ian Valdez MD [facility] CPT-32165 Level 4 Est. Patient 16:55:56 CDT Ian Valdez MD [facility] CPT-20570 Level 3 Est. Patient 11:27:07 CDT Ian Valdez MD [facility] CPT-75397 Level 3 Est. Patient 15:17:44 CDT Law Rosas [facility] CPT-40642 Level 4 Est. Patient 15:13:53 CDT Wellington Muniz [facility] CPT-41779 Level 3 Est. Patient 14:25:12 FINISH CARPENTER Ian Valdez MD [facility] CPT-29122 Level 3 Est. Patient 10:24:46 CDT Ian Valdez MD [facility] CPT-94866 Level 3 Est. Patient 15:34:19 CDT Ian Valdez MD [facility] CPT-37434 Level 3 Est. Patient 14:22:41 CDT Ian Valdez MD [facility] CPT-61880 Level 3 Est. Patient 15:07:22 FINISH CARPENTER Ian Valdez MD [facility] CPT-22794 Level 3 New Patient 09:06:43 FINISH CARPENTER Ian Valdez MD [facility] CPT-16321 Level 3 Est. Patient 15:09:00 FINISH CARPENTER Ian Valdez MD [facility] Procedures Code Procedure Name Date Entry Date Standard Description CPT-OV Office Visit 16:24:22 CDT CPT-OV Office Visit 15:15:29 FINISH CARPENTER CPT-OV Office Visit 15:49:26 FINISH CARPENTER CPT-J1885 Toradol 60 mg (Ketorolac) 15:37:32 CDT CPT-56464 Abx/Therapy Injection 15:37:32 CDT CPT-J1885 Toradol 60 mg (Ketorolac) 14:45:01 CDT CPT-OV Office Visit 15:19:52 CDT CPT-OV Office Visit 10:41:01 CDT CPT-02734 Core biop breast wo imaging 16:50:06 CDT CPT-OV Office Visit 16:50:05 CDT CPT-90528 UHCG (floor use only) 13:39:36 CDT CPT-24155 Nexplanon Placement 10:11:48 CDT CPT-J7307 Nexplanon (Implant) 10:11:48 CDT CPT-OV Office Visit 09:54:18 CDT CPT-28151 EKG Trac and Interp 16:50:19 CDT CPT-64617 Venipuncture Draw Fee 15:06:08 CDT CPT-J2930 Solu Medrol 125 mg (Methyl Prednisolone Sodium Succinate) 12:44:46 CDT CPT-J1055 Depo Provera 150 mg (Medroxyprogesterone) 12:44:46 CDT CPT-79804 Abx/Therapy Injection 12:44:46 CDT CPT-J1055 Depo Provera 150 mg (Medroxyprogesterone) 14:28:41 CDT CPT-J2930 Solu Medrol 125 mg (Methyl Prednisolone Sodium Succinate) 14:22:41 CDT CPT-46508 Administration single or combination vaccine inc oral 10 :08:06 CDT CPT-38477 Tdap 10:08:06 CDT CPT-G0402 Wlcm To Medicare Ex 22:17:30 CDT CPT-94262 Venipuncture Draw 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
--- OUTSIDE RECORDS SUMMARY | 2018-07-17 21:31 | XMS REPORT ---
Author Author JAYLIN JOHNSON Organization [employer] Address Unknown Phone Unavailable Care Team Providers Care Open Soaper Tender Name Role Phone JAYLIN JOHNSON CP Unavailable Allergies, Adverse Reactions, Alerts Substance Reaction Event Type Latex Info Not Available Drug Allergy Penicillin V Potassium Info Not Available Drug Allergy Haldol Info Not Available Drug Allergy Problems Problem Type Condition Code Onset Dates Condition Status Assessment Dental examination Z01.20 Active Medications Medication Code System Code Instructions Start Date End Date Status Dosage Zocor [facility] [address]-92 not defined Trazodone HCl [facility] [address]-43 not defined Vit Calcium Citrate + D NDC 0 not defined Magnesium [facility] [address] not defined Clindamycin HCl [facility] [address]-30 150 MG Orally every 8 hrs 2 capsules Celexa [facility] [place] [address]-55 not defined Tramadol HCl NDC 0 not defined Melatonin [facility] [place] [address] not defined Super B Complex NDC 0 not defined Depo-Provera [facility] [place] [address]-31 not defined [place] [facility] [address]-17 5-325 MG Orally every 4- 6 hrs 1-2 tablets Procedures Procedure Coding System Code Date Periodontal scaling and root CPT-4 D4341 Jan 20, 2015 Vital Signs Date/Time: Mar 06, 2015 Blood Pressure Diastolic 78 mmHg Blood Pressure Systolic 119 mmHg Results No Known Results Summary Purpose [employer] Submission
--- OUTSIDE RECORDS SUMMARY | 2018-07-17 21:31 | XMS REPORT | Clinical Summary ---
Author Author Admin, ARIAN Organization [facility] Address Unknown Phone Unavailable Allergies, [...] MD Scabies MEMORY LOSS 780.93 Resolved Ian aVldez MD Memory loss FAMILY HISTORY OF ALCOHOLISM [...] Ian Valdez MD SCABIES ICD-133.0 Inactive Ian aVldez MD 2012 MEMORY LOSS ICD-780.93 Inactive Ian [...] PO q 8 hrs PRN pain OXYCODONE-ACETAMINOPHEN 01312610729 Active Law FIGUEROA Active MINOCYCLINE HCL 100 MG CAP 1 TAB PO DAILY MINOCYCLINE HCL 30974190278 Active Herminia Bear Active BENZACLIN 1-5 % EXT GEL apply to face BID for acne. CLINDAMYCIN PHOS-BENZOYL PEROX 56692813113 No Longer Active Herminia Bear Active HYDROCODONE-ACETAMINOPHEN 5-325 MG TABS 1-2 tabs by mouth every 4- 6 hours as needed HYDROCODONE-ACETAMINOPHEN 69322325414 Active Ian Valdez MD Active CLINDAMYCIN HCL 150 MG CAPS Take 2 capsules by mouth every 8hrs for 10 days CLINDAMYCIN HCL 00983432060 Active Ian Valdez MD Active DICLOFENAC SODIUM 50 MG TBEC 1 tablet by mouth three times daily as needed DICLOFENAC SODIUM 13459537964 Active Addis William BROOM MAN Active MAGNESIUM CITRATE 1.745 GM/30ML ORAL SOLN 150ml po BID PRN Constipation 10/07 MAGNESIUM CITRATE 46847016100 Active Ian Valdez MD Active BUSPIRONE HCL 7.5 MG ORAL TABS 1 TAB PO BID PRN ANXIETY BUSPIRONE HCL 65893676878 Active Ian Valdez MD Active MEDROL (REBEKAH) 4 MG TABS 6 tabs on day 1, 5 tabs on day 2, 4 tabs on day 3, 3 tabs on day 4, 2 tabs on day 5, 1 tab on day 6 METHYLPREDNISOLONE 86100236685 No Longer Active Herminia Bear Active MELOXICAM 15 MG TABS 1 po q day for pain with food MELOXICAM 80473446881 Active Ian Valdez MD Active DOXYCYCLINE HYCLATE 100 MG CAP 1 cap by mouth twice daily DOXYCYCLINE HYCLATE 71746918922 No Longer Active Najma Vaughn APRN Active MULTIVITAMINS CAPS 1 tablet daily MULTIPLE VITAMIN 14160432876 Active Juan Smith MD Active CYCLOBENZAPRINE HCL 10 MG TABS 1/2 - 1 tab by mouth three times daily if needed for spasms/pain CYCLOBENZAPRINE HCL 79632540472 Active Addis William APRN Active GLUCOPHAGE 500 MG TABS 1 tab BID with morning and night meals METFORMIN HCL 55032826289 Active Eva Ferrara MD PhD Active PROGESTERONE MICRONIZED 100 MG CAPS 2 caps daily day 16 thru 25 of cycle 2013 PROGESTERONE MICRONIZED 36854729962 Active Eva Ferrara MD PhD Active TERBINAFINE HCL 1 % CREA Apply bid to rash TERBINAFINE HCL 76428601773 No Longer Active Eva Ferrara MD PhD Active TOPAMAX 25 MG TABS 1 tab po qhs x 1 week, then take 2 tabs po qhs TOPIRAMATE 11062414723 No Longer Active Thom Gilbert MD Active ULTRAM 50 MG TAB take 1 tab po q6hrs prn pain TRAMADOL HCL 73863011324 Active Addis William APRN Active LAMISIL AT 1 % CREA apply bid to rash TERBINAFINE HCL 46383348208 No Longer Active Thom Gilbert MD Active TERBINAFINE HCL 250 MG TABS 1 qDay TERBINAFINE HCL 71245662560 No Longer Active Ian Valdez MD Active XANAX 0.25 MG TABS take 1 tab po bid prn anxiety. ALPRAZOLAM 97989808886 No Longer Active Ian Valdez MD Active FISH OIL 1000 MG CAPS 2 caps PO once daily at bedtime OMEGA-3 FATTY ACIDS 94010025591 No Longer Active Ian Valdez MD Active KLOR-CON M20 20 MEQ CR-TABS take 1 tab po qday with lasix POTASSIUM CHLORIDE GALILEO CR 09303157091 Active Ian Valdez MD Active LASIX 20 MG TAB 1 tablet by mouth daily prn swelling FUROSEMIDE 99785023225 Active Ian Valdez MD Active FLONASE 50 MCG/ACT SUSP 2 puffs in each nostril once daily at bedtime FLUTICASONE PROPIONATE 28144671254 Active Ian Valdez MD Active [facility] MELATONIN 3 MG TABS 2 tabs PO at bedtime MELATONIN 05002134623 Active Ian Valdez MD Active PULMICORT FLEXHALER 180 MCG/ACT AEPB 2 INH BID BUDESONIDE 60833640703 No Longer Active Ian Valdez MD Active METFORMIN HCL 500 MG TB24 1 TAB PO Q HS METFORMIN HCL 43517130325 No Longer Active Ian Valdez MD Active CYCLOBENZAPRINE HCL 10 MG TABS 1 PO q 8 hrs PRN muscle spasm 2012 CYCLOBENZAPRINE HCL 26451094334 No Longer Active Ian Valdez MD Active AZITHROMYCIN 500 MG TABS 1 PO q day x 6 days AZITHROMYCIN 85300908785 No Longer Active Ian Valdez MD Active CIPRO 500 MG TAB 1 tablet by mouth twice daily CIPROFLOXACIN HCL 54983525137 No Longer Active Ian Valdez MD Active PREDNISONE 20 MG TABS 3 qd x 2d, 2 qd x 2d, 1 qd x 2d, 1/2 qd x 2d PREDNISONE 38560411525 No Longer Active Law FIGUEROA Active CELEXA 40 MG TABS 2 PO DAILY CITALOPRAM HYDROBROMIDE 47071235571 Active Ian Valdez MD Active OMEPRAZOLE 20 MG CPDR 1 tablet by mouth daily OMEPRAZOLE 11665648667 No Longer Active [place] FIGUEROA Active KLONOPIN 0.5 MG TABS 1 TABLET PO PRN CLONAZEPAM 45934320359 No Longer Active [place] FIGUEROA Active MOBIC 7.5 MG TABS 1 tablet by mouthonce a day MELOXICAM 47906059299 No Longer Active [place] FIGUEROA Active ZITHROMAX 1 GM PACK DIRECTED AZITHROMYCIN 45338990351 No Longer Active Ian Valdez MD Active ALBUTEROL SULFATE 0.083 % NEBU SOLN one vial per nebulizer every 4-6 hours as needed ALBUTEROL SULFATE 89615382008 Active Ian Valdez MD Active CHANTIX STARTING MONTH REBEKAH 0.5 MG X 11 & 1 MG X 42 TABS 0.5mg daily for 3 days , then 0.5mg BID for 4 days, then 1mg BID VARENICLINE TARTRATE 18131056527 No Longer Active Ian Valdez MD Active ZITHROMAX 1 GM PACK DIRECTED AZITHROMYCIN 97589290651 No Longer Active Ian Valdez MD Active AURALGAN 1.4-5.5 % SOLN BENZOCAINE-ANTIPYRINE 56171291552 No Longer Active Ian Valdez MD Active PREDNISONE 20 MG TAB 3 tabs daily for 3 days, 2 tab daily for 3 days, 1 tab daily for 2 days, then 1/2 tab dialy for 2 days PREDNISONE 36943875001 No Longer Active Ian Valdez MD Active SIMVASTATIN 40 MG TABS 1 TABLET PO Q HS SIMVASTATIN 49536537358 Active Ian Valdez MD Active SIMVASTATIN 80 MG TABS Take one by mouth daily SIMVASTATIN 40042401023 No Longer Active Ian Valdez MD Active PREDNISONE 20 MG TAB 2 tabs daily for 3 days, 1 tab daily for 3 days, 1/2 tab daily for 2 days PREDNISONE 35967948144 No Longer Active Ian Valdez MD Active ZITHROMAX 250 MG TAB 2 po today, then 1 po q days 2-5 AZITHROMYCIN 28150959858 No Longer Active Ian Valdez MD Active TRAZODONE HCL 100 MG TABS 2 TABS PO Q HS TRAZODONE HCL 13234950567 Active Addis William APRN Active ZITHROMAX 250 MG TAB 2 po today, then 1 po q days 2-5 AZITHROMYCIN 96598721790 No Longer Active Ian Valdez MD Active SIMVASTATIN 80 MG TABS Take one by mouth daily SIMVASTATIN 80 MG TABS 274000 SIMVASTATIN Inactive AURALGAN 1.4-5.5 % SOLN AURALGAN 1.4-5.5 % SOLN BENZOCAINE-ANTIPYRINE Inactive ZITHROMAX 1 GM PACK DIRECTED ZITHROMAX 1 GM PACK 741957 AZITHROMYCIN Inactive CHANTIX STARTING MONTH REBEKAH 0.5 MG X 11 & 1 MG X 42 TABS 0.5mg daily for 3 days , then 0.5mg BID for 4 days, then 1mg BID CHANTIX STARTING MONTH REBEKAH 0.5 MG X 11 & 1 MG X 42 TABS VARENICLINE TARTRATE Inactive ZITHROMAX 1 GM PACK DIRECTED ZITHROMAX 1 GM PACK 168859 AZITHROMYCIN Inactive MOBIC 7.5 MG TABS 1 tablet by mouthonce a day MOBIC 7.5 MG TABS 292909 MELOXICAM Inactive KLONOPIN 0.5 MG TABS 1 TABLET PO PRN KLONOPIN 0.5 MG TABS 754953 CLONAZEPAM Inactive CIPRO 500 MG TAB 1 tablet by mouth twice daily CIPRO 500 MG TAB 791986 CIPROFLOXACIN HCL Inactive AZITHROMYCIN 500 MG TABS 1 PO q day x 6 days AZITHROMYCIN 500 MG TABS 4748469 AZITHROMYCIN Inactive CYCLOBENZAPRINE HCL 10 MG TABS 1 PO q 8 hrs PRN muscle spasm 2012 CYCLOBENZAPRINE HCL 10 MG TABS 310192 CYCLOBENZAPRINE HCL Inactive METFORMIN HCL 500 MG [...] bid prn anxiety. XANAX 0.25 MG TABS 028907 ALPRAZOLAM Inactive LAMISIL AT 1 % CREA apply bid to rash LAMISIL AT 1 % CREA 598992 TERBINAFINE HCL Inactive TOPAMAX 25 MG TABS 1 tab po qhs x 1 week, then take 2 tabs po qhs TOPAMAX 25 MG TABS 829454 TOPIRAMATE Inactive TERBINAFINE HCL 1 % CREA Apply bid to rash TERBINAFINE HCL 1 % CREA 018565 TERBINAFINE HCL Inactive BENZACLIN 1-5 % EXT GEL apply to face BID for acne. BENZACLIN 1-5 % EXT GEL 400076 CLINDAMYCIN PHOS-BENZOYL PEROX Inactive ZITHROMAX 250 MG TAB 2 po today, then 1 po q days 2-5 ZITHROMAX 250 MG TAB 5503108 AZITHROMYCIN Inactive ZITHROMAX 250 MG TAB 2 po today, then 1 po q days 2-5 ZITHROMAX 250 MG TAB 6138024 AZITHROMYCIN Inactive PREDNISONE 20 MG TAB 2 tabs daily for 3 days, 1 tab daily for 3 days, 1/2 tab daily for 2 days PREDNISONE 20 MG TAB 230593 PREDNISONE Inactive PREDNISONE 20 MG TAB 3 tabs daily for 3 days, 2 tab daily for 3 days, 1 tab daily for 2 days, then 1/2 tab dialy for 2 days PREDNISONE 20 MG TAB 157011 PREDNISONE Inactive OMEPRAZOLE 20 MG CPDR 1 tablet by mouth daily OMEPRAZOLE 20 MG CPDR 980494 OMEPRAZOLE Inactive PREDNISONE 20 MG TABS 3 qd x 2d, 2 qd x 2d, 1 qd x 2d, 1/2 qd x 2d PREDNISONE 20 MG TABS 377833 PREDNISONE Inactive TERBINAFINE HCL 250 MG TABS 1 qDay TERBINAFINE HCL 250 MG TABS 584906 TERBINAFINE HCL Inactive DOXYCYCLINE HYCLATE 100 MG CAP 1 cap by mouth twice daily DOXYCYCLINE HYCLATE 100 MG CAP 2166410 DOXYCYCLINE HYCLATE Inactive MEDROL (REBEKAH) 4 MG [...] and acellular pertussis vaccine, adsorbed), booster Boostrix [[id number]] tetanus toxoid, reduced diphtheria toxoid, and acellular [...] MICROALBUMIN - Chemistry sodium, serum 141 mmol/L 875-663 1391/10/27 potassium, serum 4.5 mmol/L 3.5-5.2 chloride, serum [...] surface antigen NON-REACTIVE NON-REACTIVE Lab Report: HIV-1/2 Agn/Ritu/21882, Chlamydia/GC APTIMA/64386 - Lab chlamydia DNA probe NOT DETECTED NOT DETECTED Lab Report: HIV-1/2 Agn/Ritu/18631, Chlamydia/GC APTIMA/47743 - Microbiology Neisseria gonorrhoeae DNA probe NOT DETECTED NOT DETECTED Lab Report: [facility] [place] - Chemistry human chorionic gonadotropin, urine, qualitative (urine test) Negative Negative Office Visit: Med Check / Labs - Chemistry cholesterol, target level 200 mg/dL LDL target level 100 mg/dL HDL cholesterol, serum, target level 40 mg/dL triglyceride, target level 150 mg/dL Encounters Code Encounter Date Provider Facility CPT-89295 Level 3 Est. Patient 11:15:53 BIOMETRICS EXPERIMENTALIST Ian Valdez MD [facility] CPT-26069 Level 3 Est. Patient 15:20:49 BIOMETRICS EXPERIMENTALIST Law FIGUEROA [facility] CPT-60689 Level 4 Est. Patient 22:41:22 CDT Ian Valdez MD [facility] CPT-53562 Level 3 Est. Patient 17:03:54 CDT Carlos Mccormack MD [facility] CPT-57909 Level 3 Est. Patient 20:15:16 CDT Ian Valdez MD [facility] CPT-50500 Level 3 Est. Patient 13:49:34 CDT Ian Valdez MD [facility] CPT-50942 Level 3 Est. Patient 15:50:27 BIOMETRICS EXPERIMENTALIST Najma Vaughn APRN [facility] CPT-58520 Level 4 Est. Patient 21:20:00 BIOMETRICS EXPERIMENTALIST Ian Valdez MD [facility] CPT-27917 Level 3 Est. Patient 15:32:41 BIOMETRICS EXPERIMENTALIST Juan Smith MD [facility] CPT-75422 Level 3 Est. Patient 14:45:01 CDT Eva Ferrara MD PhD [facility] CPT-69101 Level 3 Est. Patient 14:54:10 CDT Ian Valdez MD [facility] CPT-72591 Level 4 Est. Patient 20:36:52 CDT Ian Valdez MD [facility]-14254 Level 4 Est. Patient 11:14:30 BIOMETRICS EXPERIMENTALIST Ian Valdez MD [facility]-65732 Level 3 Est. Patient 19:08:34 BIOMETRICS EXPERIMENTALIST Ian Valdez MD [facility]-50112 Level 3 Est. Patient 13:17:39 BIOMETRICS EXPERIMENTALIST Ian Valdez MD [facility]-26959 Level 4 Est. Patient 18:56:10 CDT Ian Valdez MD [facility]-01746 Level 4 Est. Patient 16:55:56 CDT Ian Valdez MD [facility] CPT-03368 Level 3 Est. Patient 11:27:07 CDT Ian Valdez MD [facility] CPT-90900 Level 3 Est. Patient 15:17:44 CDT Law Rosas [facility] CPT-38828 Level 4 Est. Patient 15:13:53 CDT Wellington Muniz [facility] CPT-88008 Level 3 Est. Patient 14:25:12 BIOMETRICS EXPERIMENTALIST Ian Valdez MD [facility]-52088 Level 3 Est. Patient 10:24:46 CDT Ian Valdez MD [facility]-97585 Level 3 Est. Patient 15:34:19 CDT Ian Valdez MD [facility]-90965 Level 3 Est. Patient 14:22:41 CDT Ian Valdez MD [facility]-95904 Level 3 Est. Patient 15:07:22 BIOMETRICS EXPERIMENTALIST Ian Valdez MD [facility] CPT-49769 Level 3 New Patient 09:06:43 BIOMETRICS EXPERIMENTALIST Ian Valdez MD [facility] CPT-09679 Level 3 Est. Patient 15:09:00 BIOMETRICS EXPERIMENTALIST Ian Valdez MD [facility] Procedures Code Procedure Name Date Entry Date Standard Description CPT-J2930 Solu Medrol 125 mg (Methyl Prednisolone Sodium Succinate) 09:17:43 BIOMETRICS EXPERIMENTALIST CPT-91464 Abx/Therapy Injection 09:17:43 BIOMETRICS EXPERIMENTALIST CPT-J2930 Solu Medrol 125 mg (Methyl Prednisolone Sodium Succinate) 13:19:04 BIOMETRICS EXPERIMENTALIST CPT-52674 Abx/Therapy Injection 13:19:04 BIOMETRICS EXPERIMENTALIST CPT-J2930 Solu Medrol 125 mg (Methyl Prednisolone Sodium Succinate) 11:15:53 BIOMETRICS EXPERIMENTALIST CPT-J1050 Depo Provera 150 mg (Medroxyprogesterone) 13:45:44 CDT CPT-76871 Abx/Therapy Injection 13:45:44 CDT CPT-J1050 Depo Provera 150 mg (Medroxyprogesterone) 15:27:21 CDT CPT-60008 Abx/Therapy Injection 15:27:21 CDT CPT-33837 Abd compl w upright 17:11:01 CDT CPT-OV Office Visit 16:24:22 CDT CPT-OV Office Visit 15:15:29 BIOMETRICS EXPERIMENTALIST CPT-OV Office Visit 15:49:26 BIOMETRICS EXPERIMENTALIST CPT-J1885 Toradol 60 mg (Ketorolac) 15:37:32 CDT CPT-28969 Abx/Therapy Injection 15:37:32 CDT CPT-J1885 Toradol 60 mg (Ketorolac) 14:45:01 CDT CPT-OV Office Visit 15:19:52 CDT CPT-OV Office Visit 10:41:01 CDT CPT-79462 Core biop breast wo imaging 16:50:06 CDT CPT-OV Office Visit 16:50:05 CDT CPT-26764 UHCG (floor use only) 13:39:36 CDT CPT-75391 Nexplanon Placement 10:11:48 CDT CPT-J7307 Nexplanon (Implant) 10:11:48 CDT CPT-OV Office Visit 09:54:18 CDT CPT-45961 EKG Trac and Interp 16:50:19 CDT CPT-14368 Venipuncture Draw Fee 15:06:08 CDT CPT-J2930 Solu Medrol 125 mg (Methyl Prednisolone Sodium Succinate) 12:44:46 CDT CPT-J1055 Depo Provera 150 mg (Medroxyprogesterone) 12:44:46 CDT CPT-90787 Abx/Therapy Injection 12:44:46 CDT CPT-J1055 Depo Provera 150 mg (Medroxyprogesterone) 14:28:41 CDT CPT-J2930 Solu Medrol 125 mg (Methyl Prednisolone Sodium Succinate) 14:22:41 CDT CPT-36727 Administration single or combination vaccine inc oral 10 :08:06 CDT CPT-43316 Tdap 10:08:06 CDT CPT-G0402 Wlcm To Medicare Ex 22:17:30 CDT CPT-42802 Venipuncture Draw Fee 10:33:07 BIOMETRICS EXPERIMENTALIST CPT-08490 Venipuncture Draw Fee 10:17:37 BIOMETRICS EXPERIMENTALIST CPT-G0403 EKG Wlc To Medicare 22:17:30 CDT
--- OUTSIDE RECORDS SUMMARY | 2018-07-17 21:31 | XMS REPORT ---
Author Author FARHAD VILLAGRAN [facility] eClinical[employer] Address Unknown Phone Unavailable Care Team Providers Care Rural Route Carrier Name Role Phone FARHAD VILLAGRAN CP Unavailable Allergies No Known Allergies Problems No Known Problems Medications No Known Medications Results No Known Results Summary Purpose eClinicalWorks Submission
--- OUTSIDE RECORDS SUMMARY | 2018-07-17 21:31 | XMS REPORT ---
Author Author FARHAD VILLAGRAN [facility] e[employer] Address Unknown Phone Unavailable Care Team Providers Care General Internist Name Role Phone FARHAD VILLAGRAN CP Unavailable Allergies, Adverse Reactions, Alerts Substance Reaction Event Type Latex Info Not Available Drug Allergy Penicillin Info Not Available Non Drug Allergy Problems Problem Type Condition Code Onset Dates Condition Status Assessment Dental caries on smooth surface penetrating into pulp K02.63 Active Medications Medication Code System Code Instructions Start Date End Date Status Dosage Clindamycin HCl [facility] [address]-46 150 MG Orally every 8 hrs 2 capsules [place] [facility] [address]-12 5-325 MG Orally every 4- 6 hrs 1-2 tablets Tramadol HCl NDC 0 not defined Celexa [facility] [address]-39 not defined Vit Calcium Citrate + D NDC 0 not defined Super B Complex NDC 0 not defined Zocor [facility] [address]-20 not defined Melatonin [facility] [address] not defined Trazodone HCl [facility] [address]-43 not defined Magnesium [facility] [address] not defined Procedures Procedure Coding System Code Date EXTRAC ERUPTED TOOTH/EXPOSED ROOT CPT-4 D7140 Jan 20, 2015 Vital Signs Date/Time: Mar 06, 2015 Blood Pressure Diastolic 78 mmHg Blood Pressure Systolic 119 mmHg Results No Known Results Summary Purpose eClinicalWorks Submission
--- OUTSIDE RECORDS SUMMARY | 2018-07-17 21:32 | XMS REPORT ---
Author Author GERRY GOLD [employer] Address Unknown Phone Unavailable Care Team Providers Care Rn Social Services Name Role Phone GERRY GOLD CP Unavailable Allergies, Adverse Reactions, Alerts Substance Reaction Event Type Latex Info Not Available Drug Allergy Penicillin Info Not Available Non Drug Allergy Problems Problem Type Condition Code Onset Dates Condition Status Assessment Dental examination Z01.20 Active Medications Medication Code System Code Instructions Start Date End Date Status Dosage Celexa [facility] [address]-15 not defined Zocor [facility] [address]-15 not defined Vit Calcium Citrate + D NDC 0 not defined Magnesium [facility] [address] not defined Trazodone HCl [facility] [address]-05 not defined Clindamycin HCl [facility] [address]-29 150 MG Orally every 8 hrs 2 capsules [place] [facility] [address]-29 5-325 MG Orally every 4- 6 hrs 1-2 tablets Super B Complex NDC 0 not defined Melatonin [facility] [address] not defined Tramadol HCl NDC 0 not defined Procedures Procedure Coding System Code Date BITEWINGS - FOUR FILMS CPT-4 D0274 Jan 20, 2015 PANORAMIC FILM SEE ALSO CODE 85360 CPT-4 D0330 Jan 20, 2015 COMP ORAL EVALUATION - NEW/EST PT CPT-4 D0150 Jan 20, 2015 Vital Signs Date/Time: Jan 20, 2015 Blood Pressure Diastolic 86 mmHg Blood Pressure Systolic 124 mmHg Results No Known Results Summary Purpose eClinicalWorks Submission
--- OUTSIDE RECORDS SUMMARY | 2018-07-17 21:33 | XMS REPORT | Clinical Summary ---
Author Author Admin, ARIAN Organization [facility] Address Unknown Phone Allergies, Adverse Reactions, Alerts Allergy Name Reaction [...] MD Memory loss ROUTINE HEALTH MAINTENANCE V70.0 Active Ian Valdez MD Routine general medical examination at a health care facility FAMILY HISTORY OF ISCHEMIC HEART DISEASE V17.3 Resolved Ian Valdez MD Family history of ischemic heart disease EUSTACHIAN TUBE DYSFUNCTION 381.81 Resolved Ian Valdez MD Dysfunction of Eustachian tube SINUSITIS 473.9 Active Ian Valdez MD Unspecified sinusitis (chronic) CONTACT DERMATITIS DUE TO POISON CARINE 692.6 Resolved Ian Valdez MD Contact dermatitis and other eczema due to plants [ except food] CONTRACEPTIVE MANAGEMENT V25.09 Active Ian Valdez MD Encounter for other general counseling and advice on contraceptive management EUSTACHIAN TUBE DYSFUNCTION 381.81 Resolved Ian Valdez MD Dysfunction of Eustachian tube TOBACCO ABUSE 305.1 Active Ian Valdez MD Tobacco use disorder ASTHMA NOS W/ACUTE EXACERBATION 493.92 Active Ian Valdez MD Asthma, unspecified with (acute) exacerbation ACUTE [...] state, unspecified KNEE PAIN, RIGHT, CHRONIC 719.46 Active Ian Valdez MD Pain in joint involving lower leg Ankle sprain, left 845.00 Resolved Ian Valdez MD Unspecified site of ankle sprain Peripheral edema 782.3 Active Ian Valdez MD Edema Chronic pain 338.29 Active Ian Valdez MD Other chronic pain Myofascial pain syndrome 729.1 Active Ian Valdez MD Myalgia and myositis, unspecified Polycystic ovarian disease 256.4 Active Ian Valdez MD Polycystic ovaries Unspecified procreative management V26.9 Active Gisell Curry MD Unspecified procreative management Tinea cruris 110.3 Active Ian Valdez MD Dermatophytosis of groin and perianal area SINUSITIS ICD-473.9 Inactive Ian Valdez MD SCABIES ICD-133.0 Inactive Ian Valdez MD 2012 MEMORY LOSS ICD-780.93 Inactive Ian Valdez MD FAMILY HISTORY OF ALCOHOLISM ICD-V61.41 Inactive Ian Valdez MD FH DIABETES ICD-V18.0 Inactive Ian Valdez MD MEMORY LOSS ICD-780.93 Inactive Ian Valdez MD FAMILY HISTORY OF ISCHEMIC HEART DISEASE ICD-V17.3 Inactive Ian Valdez MD EUSTACHIAN TUBE DYSFUNCTION ICD-381.81 Inactive Ian Valdez MD CONTACT DERMATITIS DUE TO POISON CARINE ICD-692.6 Inactive Ian Valdez MD EUSTACHIAN TUBE DYSFUNCTION ICD-381.81 Inactive Ian Valdez MD ACUTE BRONCHITIS ICD-466.0 Inactive Ian Valdez [...] MED NEC ICD-V67.51 Inactive Ian Valdez MD Ankle sprain, left ICD-845.00 Inactive Ian Valdez MD Medication List Medication Instructions Start Date Stop Date Generic Name NDC Status Provider Patient Instruction LAMISIL AT 1 % CREA apply bid to rash TERBINAFINE HCL 74036302878 Active Ian Valdez MD Active TERBINAFINE HCL 250 MG TABS 1 qDay TERBINAFINE HCL 60939738932 No Longer Active Ian Valdez MD Active TOPAMAX 25 MG TABS 1 tab po qhs x 1 week, then take 2 tabs po qhs TOPIRAMATE 12791208033 Active Ian Valdez MD Active XANAX 0.25 MG TABS take 1 tab po bid prn anxiety. ALPRAZOLAM 07300348669 No Longer Active Ian Valdez MD Active FISH OIL 1000 MG CAPS 2 caps PO once daily at bedtime OMEGA-3 FATTY ACIDS 27800205785 No Longer Active Ian Valdez MD Active KLOR-CON M20 20 MEQ CR-TABS take 1 tab po qday with lasix POTASSIUM CHLORIDE GALILEO CR 68491062477 Active Ian Valdez MD Active LASIX 20 MG TAB 1 tablet by mouth daily prn swelling FUROSEMIDE 23163243386 Active Ian Valdez MD Active FLONASE 50 MCG/ACT SUSP 2 puffs in each nostril once daily at bedtime FLUTICASONE PROPIONATE 02460957190 Active Ian Valdez MD Active [facility] MELATONIN 3 MG TABS 2 tabs PO at bedtime MELATONIN 46642651255 Active Ian Valdez MD Active PULMICORT FLEXHALER 180 MCG/ACT AEPB 2 INH BID BUDESONIDE 81564387699 No Longer Active Ian Valdez MD Active METFORMIN HCL 500 MG TB24 1 TAB PO Q HS METFORMIN HCL 89511616541 No Longer Active Ian Valdez MD Active CYCLOBENZAPRINE HCL 10 MG TABS 1 PO q 8 hrs PRN muscle spasm 2012 CYCLOBENZAPRINE HCL 47403320600 No Longer Active Ian Valdez MD Active AZITHROMYCIN 500 MG TABS 1 PO q day x 6 days AZITHROMYCIN 79776311752 No Longer Active Ian Valdez MD Active CIPRO 500 MG TAB 1 tablet by mouth twice daily CIPROFLOXACIN HCL 93810609720 No Longer Active Ian Valdez MD Active PREDNISONE 20 MG TABS 3 qd x 2d, 2 qd x 2d, 1 qd x 2d, 1/2 qd x 2d PREDNISONE 97875470063 No Longer Active Law FIGUEROA Active CELEXA 40 MG TABS 2 PO DAILY CITALOPRAM HYDROBROMIDE 14142417151 Active Ian Valdez MD Active OMEPRAZOLE 20 MG CPDR 1 tablet by mouth daily OMEPRAZOLE 53237015041 No Longer Active [place] FIGUEROA Active KLONOPIN 0.5 MG TABS 1 TABLET PO PRN CLONAZEPAM 07347391842 No Longer Active [place] FIGUEROA Active MOBIC 7.5 MG TABS 1 tablet by mouthonce a day MELOXICAM 56714395689 No Longer Active [place] FIGUEROA Active ZITHROMAX 1 GM PACK DIRECTED AZITHROMYCIN 08027954306 No Longer Active Ian Valdez MD Active ALBUTEROL SULFATE 0.083 % NEBU SOLN one vial per nebulizer every 4-6 hours as needed ALBUTEROL SULFATE 76847007191 Active Ian Valdez MD Active CHANTIX STARTING MONTH REBEKAH 0.5 MG X 11 & 1 MG X 42 TABS 0.5mg daily for 3 days , then 0.5mg BID for 4 days, then 1mg BID VARENICLINE TARTRATE 49676830343 No Longer Active Ian Valdez MD Active ZITHROMAX 1 GM PACK DIRECTED AZITHROMYCIN 39697986355 No Longer Active Ian Valdez MD Active AURALGAN 1.4-5.5 % SOLN BENZOCAINE-ANTIPYRINE 61065019361 No Longer Active Ian Valdez MD Active PREDNISONE 20 MG TAB 3 tabs daily for 3 days, 2 tab daily for 3 days, 1 tab daily for 2 days, then 1/2 tab dialy for 2 days PREDNISONE 37162145194 No Longer Active Ian Valdez MD Active SIMVASTATIN 40 MG TABS 1 TABLET PO Q HS SIMVASTATIN 72672069113 Active Ian Valdez MD Active SIMVASTATIN 80 MG TABS Take one by mouth daily SIMVASTATIN 19684068871 No Longer Active Ian Valdez MD Active PREDNISONE 20 MG TAB 2 tabs daily for 3 days, 1 tab daily for 3 days, 1/2 tab daily for 2 days PREDNISONE 24305574677 No Longer Active Ian Valdez MD Active ZITHROMAX 250 MG TAB 2 po today, then 1 po q days 2-5 AZITHROMYCIN 74881657587 No Longer Active Ian Valdez MD Active TRAZODONE HCL 100 MG TABS 2 TABS PO Q HS TRAZODONE HCL 79008402684 Active Ian Valdez MD Active ZITHROMAX 250 MG TAB 2 po today, then 1 po q days 2-5 AZITHROMYCIN 52283863365 No Longer Active Ian Valdez MD Active SIMVASTATIN 80 MG TABS Take one by mouth daily SIMVASTATIN 80 MG TABS 218397 SIMVASTATIN Inactive AURALGAN 1.4-5.5 % SOLN AURALGAN 1.4-5.5 % SOLN 6794644 BENZOCAINE-ANTIPYRINE Inactive ZITHROMAX 1 GM PACK DIRECTED ZITHROMAX 1 GM PACK 804722 AZITHROMYCIN Inactive CHANTIX STARTING MONTH REBEKAH 0.5 MG X 11 & 1 MG X 42 TABS 0.5mg daily for 3 days , then 0.5mg BID for 4 days, then 1mg BID CHANTIX STARTING MONTH REBEKAH 0.5 MG X 11 & 1 MG X 42 TABS VARENICLINE TARTRATE Inactive ZITHROMAX 1 GM PACK DIRECTED ZITHROMAX 1 GM PACK 437940 AZITHROMYCIN Inactive MOBIC 7.5 MG TABS 1 tablet by mouthonce a day MOBIC 7.5 MG TABS 439013 MELOXICAM Inactive KLONOPIN 0.5 MG TABS 1 TABLET PO PRN KLONOPIN 0.5 MG TABS 886125 CLONAZEPAM Inactive CIPRO 500 MG TAB 1 tablet by mouth twice daily CIPRO 500 MG TAB 029683 CIPROFLOXACIN HCL Inactive AZITHROMYCIN 500 MG TABS 1 PO q day x 6 days AZITHROMYCIN 500 MG TABS 6021488 AZITHROMYCIN Inactive CYCLOBENZAPRINE HCL 10 MG TABS 1 PO q 8 hrs PRN muscle spasm 2012 CYCLOBENZAPRINE HCL 10 MG TABS 862422 CYCLOBENZAPRINE HCL Inactive METFORMIN HCL 500 MG [...] bid prn anxiety. XANAX 0.25 MG TABS 814416 ALPRAZOLAM Inactive ZITHROMAX 250 MG TAB 2 po today, then 1 po q days 2-5 ZITHROMAX 250 MG TAB 2741212 AZITHROMYCIN Inactive ZITHROMAX 250 MG TAB 2 po today, then 1 po q days 2-5 ZITHROMAX 250 MG TAB 8902472 AZITHROMYCIN Inactive PREDNISONE 20 MG TAB 2 tabs daily for 3 days, 1 tab daily for 3 days, 1/2 tab daily for 2 days PREDNISONE 20 MG TAB 281854 PREDNISONE Inactive PREDNISONE 20 MG TAB 3 tabs daily for 3 days, 2 tab daily for 3 days, 1 tab daily for 2 days, then 1/2 tab dialy for 2 days PREDNISONE 20 MG TAB 469425 PREDNISONE Inactive OMEPRAZOLE 20 MG CPDR 1 tablet by mouth daily OMEPRAZOLE 20 MG CPDR 382842 OMEPRAZOLE Inactive PREDNISONE 20 MG TABS 3 qd x 2d, 2 qd x 2d, 1 qd x 2d, 1/2 qd x 2d PREDNISONE 20 MG TABS 307965 PREDNISONE Inactive TERBINAFINE HCL 250 MG TABS 1 qDay TERBINAFINE HCL 250 MG TABS 169741 TERBINAFINE HCL Inactive Advance Directives Directive Description Start Date NO HEROIC MEASURES Immunizations Vaccine Administration Date Value Standard Description Combined Aarvqqvlci-Vusgcrr-hhkrvvzep Pertussis (dTpa) Vaccine - Booster 07/05 Boostrix [[id number]] tetanus toxoid, reduced diphtheria toxoid, and acellular pertussis vaccine, adsorbed Vital Signs Date Name Value Unit Range Description blood pressure, diastolic 80 mm[Hg] BP aguillon blood pressure, systolic 138 mm[Hg] BP sys height E&M 64 [in_us] Bdy height pulse rate E&M 105 /min Heart rate temperature E&M 98.1 [degF] Body temperature weight E&M 215 [lb_av] Weight Measured blood pressure, diastolic 74 mm[Hg] BP aguillon blood pressure, systolic 111 mm[Hg] BP sys height E&M 64 [in_us] Bdy height pulse rate E&M 116 /min Heart rate temperature E&M 97.5 [degF] Body temperature weight E&M 218 [lb_av] Weight Measured blood pressure, diastolic 89 mm[Hg] BP [place] blood pressure, systolic 158 mm[Hg] BP sys height E&M 64 [in_us] Bdy height pulse rate E&M 90 /min Heart rate temperature E&M 96.6 [degF] Body temperature weight E&M 221 [lb_av] Weight Measured blood pressure, diastolic 98 mm[Hg] BP [place] blood pressure, systolic 158 mm[Hg] BP sys height E&M 64 [in_us] Bdy height pulse rate E&M 98 /min Heart rate temperature E&M 98.7 [degF] Body temperature weight E&M 226.38 [lb_av] Weight Measured blood pressure, diastolic 82 mm[Hg] BP [place] blood pressure, systolic 139 mm[Hg] BP sys height E&M 64 [in_us] Bdy height pulse rate E&M 97 /min Heart rate temperature E&M 97.7 [degF] Body temperature weight E&M 224 [lb_av] Weight Measured blood pressure, diastolic 92 mm[Hg] BP [place] blood pressure, systolic 140 mm[Hg] BP sys height E&M 64 [in_us] Bdy height pulse rate E&M 116 /min Heart rate temperature E&M 98.6 [degF] Body temperature weight E&M 222 [lb_av] Weight Measured blood pressure, diastolic 98 mm[Hg] BP [place] blood pressure, systolic 148 mm[Hg] BP sys height E&M 64 [in_us] Bdy height pulse rate E&M 93 /min Heart rate temperature E&M 98.0 [degF] Body temperature weight E&M 223 [lb_av] Weight Measured blood pressure, diastolic 82 mm[Hg] BP [place] blood pressure, systolic 130 mm[Hg] BP sys height E&M 64 [in_us] Bdy height pulse rate E&M 92 /min Heart rate temperature E&M 98.0 [degF] Body temperature weight E&M 222 [lb_av] Weight Measured Diagnostic Results Date Name Value Unit Range Description Lab Report: Basic Metabolic Panel - Chemistry sodium, serum 137 mmol/L 527-859 0930/07/25 potassium, serum 3.7 mmol/L 3.5-5.2 chloride, serum 102 mmol/L 98-107 carbon dioxide, venous blood 27.3 mmol/L 21.0-32.0 blood glucose 85 mg/dL 65-110 calcium, serum 8.5 mg/dL 8.5-10.1 urea nitrogen, blood 7 mg/dL 7-18 creatinine, serum 0.80 mg/dL 0.60-1.30 Lab Report: CBC, HGBA1C, Comp. Metabolic Panel - Chemistry hemoglobin A1C, blood, as % of total hemoglobin 5.3 % 4.3-6.0 sodium, serum 139 mmol/L 596-825 5042/02/24 potassium, serum 4.4 mmol/L 3.5-5.2 chloride, serum 103 mmol/L 98-107 carbon dioxide, venous blood 28.0 mmol/L 21.0-32.0 blood glucose 92 mg/dL 65-110 urea nitrogen, blood 6 mg/dL 7-18 creatinine, serum 0.70 mg/dL 0.60-1.30 alanine aminotransferase (SGPT), serum 48 U/L 12-78 aspartate aminotransferase (SGOT), serum 19 U/L 15-37 alkaline phosphatase, serum 90 U/L 50-136 calcium, serum 8.8 mg/dL 8.5-10.1 bilirubin, serum, total 0.50 mg/dL 0.00-1.00 Lab Report: CBC, HGBA1C, Comp. Metabolic Panel - Hematology leukocyte count, blood 8.4 10^3/MM^3 10*3/mm3 4.6-10.2 erythrocyte (RBC) count 5.09 10^6/MM^3 10*6/mm3 4.04-5.48 hemoglobin, blood 15.6 g/dL 12.0-16.0 hematocrit, blood 46.3 % 36.0-46.0 mean corpuscular volume, RBC 91 fL 80-97 mean corpuscular hemoglobin, RBC 30.7 pg 27.0-31.2 mean corpuscular hemoglobin concentration, RBC 33.8 G/DL % 31.8- 35.4 red blood cell distribution width 13.6 % 11.6-14.8 platelet count 364 10^3/MM^3 10*3/mm3 142-424 Lab Report: Lipid Panel - Chemistry cholesterol, serum 118 mg/dL 570-166 3485/02/24 triglyceride, serum, fasting 141 mg/dL 30-200 HDL cholesterol, serum 20 mg/dL 32-96 LDL cholesterol, serum 70 mg/dL 0-130 Lab Report: Lipid Panel, Comp. Metabolic Panel, MICROALBUMIN, HGBA1C - Chemistry cholesterol, serum 172 mg/dL 119-891 1334/08/16 triglyceride, serum, fasting 267 mg/dL 30-200 HDL cholesterol, serum 22 mg/dL 32-96 LDL cholesterol, serum 97 mg/dL 0-130 sodium, serum 141 mmol/L 621-335 9365/08/16 potassium, serum 4.2 mmol/L 3.5-5.2 chloride, serum 104 mmol/L 98-107 carbon dioxide, venous blood 30.1 mmol/L 21.0-32.0 blood glucose 111 mg/dL 65-110 urea nitrogen, blood 9 mg/dL 7-18 creatinine, serum 0.80 mg/dL 0.60-1.30 alanine aminotransferase (SGPT), serum 25 U/L 12-78 aspartate aminotransferase (SGOT), serum 14 U/L 15-37 alkaline phosphatase, serum 91 U/L 50-136 calcium, serum 9.2 mg/dL 8.5-10.1 bilirubin, serum, total 0.32 mg/dL 0.00-1.00 albumin/creatinine ratio, urine < 30 mg/g mg/g{creat} 0-29 hemoglobin A1C, blood, as % of total hemoglobin 5.3 % 4.3-6.0 Lab Report: Lipid Panel, Comp. Metabolic Panel, MICROALBUMIN, HGBA1C - Lab microalbumin, urine 10 0-19 Office Visit: Consult infertility - Chemistry human chorionic gonadotropin, urine, qualitative (urine test) Negative Encounters Code Encounter Date Provider Facility CPT-07061 Level 3 Est. Patient 14:54:10 CDT Ian Valdez MD [facility] CPT-25527 Level 4 Est. Patient 20:36:52 CDT Ian Valdez MD [facility] CPT-41404 Level 4 Est. Patient 11:14:30 MINES INSPECTOR Ian Valdez MD [facility] CPT-81827 Level 3 Est. Patient 19:08:34 MINES INSPECTOR Ian Valdez MD [facility] CPT-23875 Level 3 Est. Patient 13:17:39 MINES INSPECTOR Ian Valdez MD [facility] CPT-97409 Level 4 Est. Patient 18:56:10 CDT Ian Valdez MD [facility] CPT-00601 Level 4 Est. Patient 16:55:56 CDT Ian Valdez MD [facility] CPT-89370 Level 3 Est. Patient 11:27:07 CDT Ian Valdez MD [facility] CPT-51154 Level 3 Est. Patient 15:17:44 CDT Law Rosas [facility] CPT-55571 Level 4 Est. Patient 15:13:53 CDT Wellington Muniz PA [facility] CPT-25378 Level 3 Est. Patient 14:25:12 MINES INSPECTOR Ian Valdez MD [facility] CPT-66699 Level 3 Est. Patient 10:24:46 CDT Ian Valdez MD [facility] CPT-45555 Level 3 Est. Patient 15:34:19 CDT Ian Valdez MD [facility] CPT-70157 Level 3 Est. Patient 14:22:41 CDT Ian Valdez MD [facility] CPT-40642 Level 3 Est. Patient 15:07:22 MINES INSPECTOR Ian Valdez MD [facility] CPT-88995 Level 3 New Patient 09:06:43 MINES INSPECTOR Ian Valdez MD [facility] CPT-20904 Level 3 Est. Patient 15:09:00 MINES INSPECTOR Ian Valdez MD [facility] Procedures Code Procedure Name Date Entry Date Standard Description CPT-84880 UHCG (floor use only) 13:39:36 CDT CPT-88582 Nexplanon Placement 10:11:48 CDT CPT-J7307 Nexplanon (Implant) 10:11:48 CDT CPT-OV Office Visit 09:54:18 CDT CPT-26264 EKG Trac and Interp 16:50:19 CDT CPT-40669 Venipuncture Draw Fee 15:06:08 CDT CPT-J2930 Solu Medrol 125 mg (Methyl Prednisolone Sodium Succinate) 12:44:46 CDT CPT-J1055 Depo Provera 150 mg (Medroxyprogesterone) 12:44:46 CDT CPT-43703 Abx/Therapy Injection 12:44:46 CDT CPT-J1055 Depo Provera 150 mg (Medroxyprogesterone) 14:28:41 CDT CPT-J2930 Solu Medrol 125 mg (Methyl Prednisolone Sodium Succinate) 14:22:41 CDT CPT-45349 Administration single or combination vaccine inc oral 10 :08:06 CDT CPT-69161 Tdap 10:08:06 CDT CPT-G0402 [facility]cm To Medicare Ex 22:17:30 CDT CPT-05528 Venipuncture Draw Fee 10:33:07 MINES INSPECTOR CPT-64524 Venipuncture Draw Fee 10:17:37 MINES INSPECTOR CPT-G0403 EKG [facility] To Medicare 22:17:30 CDT
--- OUTSIDE RECORDS SUMMARY | 2018-07-17 21:34 | XMS REPORT | Clinical Summary ---
Author Author Admin, ARIAN Organization [facility] Address Unknown Phone Unavailable Allergies, Adverse [...] MD Acute frontal sinusitis Breast mass 611.72 Active Juan Smith MD Lump or mass in breast SINUSITIS ICD-473.9 Inactive Ian Valdez MD SCABIES [...] frontal, acute ICD-461.1 Inactive Thom Gilbert MD Medication List Medication Instructions Start Date Stop Date Generic Name ND Status Provider Patient Instruction MULTIVITAMINS CAPS 1 tablet daily MULTIPLE VITAMIN 39711952251 Active Juan Smith MD Active CYCLOBENZAPRINE HCL 10 MG TABS 1/2 - 1 tab by mouth three times daily if needed for spasms/pain CYCLOBENZAPRINE HCL 84064609606 Active Ian Valdez MD Active GLUCOPHAGE 500 MG TABS 1 tab BID with morning and night meals METFORMIN HCL 46396405424 Active Eva Ferrara MD PhD Active PROGESTERONE MICRONIZED 100 MG CAPS 2 caps daily day 16 thru 25 of cycle 2013 PROGESTERONE MICRONIZED 35981979736 Active Eva Ferrara MD PhD Active TERBINAFINE HCL 1 % CREA Apply bid to rash TERBINAFINE HCL 22375346546 No Longer Active Eva Ferrara MD PhD Active TOPAMAX 25 MG TABS 1 tab po qhs x 1 week, then take 2 tabs po qhs TOPIRAMATE 02528861623 No Longer Active Thom Gilbert MD Active ULTRAM 50 MG TAB take 1 tab po q6hrs prn pain TRAMADOL HCL 95823524075 Active Ian Valdez MD Active LAMISIL AT 1 % CREA apply bid to rash TERBINAFINE HCL 23475559539 No Longer Active Thom Gilbert MD Active TERBINAFINE HCL 250 MG TABS 1 qDay TERBINAFINE HCL 86570380570 No Longer Active Ian Valdez MD Active XANAX 0.25 MG TABS take 1 tab po bid prn anxiety. ALPRAZOLAM 60562731322 No Longer Active Ian Valdez MD Active FISH OIL 1000 MG CAPS 2 caps PO once daily at bedtime OMEGA-3 FATTY ACIDS 86762456229 No Longer Active Ian Valdez MD Active KLOR-CON M20 20 MEQ CR-TABS take 1 tab po qday with lasix POTASSIUM CHLORIDE GALILEO CR 35852204060 Active Ian Valdez MD Active LASIX 20 MG TAB 1 tablet by mouth daily prn swelling FUROSEMIDE 08841117593 Active Ian Valdez MD Active FLONASE 50 MCG/ACT SUSP 2 puffs in each nostril once daily at bedtime FLUTICASONE PROPIONATE 46572543109 Active Ian Valdez MD Active CVS MELATONIN 3 MG TABS 2 tabs PO at bedtime MELATONIN 34333672362 Active Ian Valdez MD Active PULMICORT FLEXHALER 180 MCG/ACT AEPB 2 INH BID BUDESONIDE 53486224763 No Longer Active Ian Valdez MD Active METFORMIN HCL 500 MG TB24 1 TAB PO Q HS METFORMIN HCL 02311508333 No Longer Active Ian Valdez MD Active CYCLOBENZAPRINE HCL 10 MG TABS 1 PO q 8 hrs PRN muscle spasm 2012 CYCLOBENZAPRINE HCL 73854477253 No Longer Active Ian Valdez MD Active AZITHROMYCIN 500 MG TABS 1 PO q day x 6 days AZITHROMYCIN 80869901710 No Longer Active Ian Valdez MD Active CIPRO 500 MG TAB 1 tablet by mouth twice daily CIPROFLOXACIN HCL 96671723391 No Longer Active Ian Valdez MD Active PREDNISONE 20 MG TABS 3 qd x 2d, 2 qd x 2d, 1 qd x 2d, 1/2 qd x 2d PREDNISONE 61042317637 No Longer Active Law FIGUEROA Active CELEXA 40 MG TABS 2 PO DAILY CITALOPRAM HYDROBROMIDE 48664539181 Active Ian Valdez MD Active OMEPRAZOLE 20 MG CPDR 1 tablet by mouth daily OMEPRAZOLE 57821385151 No Longer Active [place] FIGUEROA Active KLONOPIN 0.5 MG TABS 1 TABLET PO PRN CLONAZEPAM 68311127530 No Longer Active [place] FIGUEROA Active MOBIC 7.5 MG TABS 1 tablet by mouthonce a day MELOXICAM 98756888571 No Longer Active [place] FIGUEROA Active ZITHROMAX 1 GM PACK DIRECTED AZITHROMYCIN 68178483434 No Longer Active Ian Valdez MD Active ALBUTEROL SULFATE 0.083 % NEBU SOLN one vial per nebulizer every 4-6 hours as needed ALBUTEROL SULFATE 14211490616 Active Ian Valdez MD Active CHANTIX STARTING MONTH REBEKAH 0.5 MG X 11 & 1 MG X 42 TABS 0.5mg daily for 3 days , then 0.5mg BID for 4 days, then 1mg BID VARENICLINE TARTRATE 26404404357 No Longer Active Ian Valdez MD Active ZITHROMAX 1 GM PACK DIRECTED AZITHROMYCIN 23905284887 No Longer Active Ian Valdez MD Active AURALGAN 1.4-5.5 % SOLN BENZOCAINE-ANTIPYRINE 63374455420 No Longer Active Ian Valdez MD Active PREDNISONE 20 MG TAB 3 tabs daily for 3 days, 2 tab daily for 3 days, 1 tab daily for 2 days, then 1/2 tab dialy for 2 days PREDNISONE 72203726093 No Longer Active Ian Valdez MD Active SIMVASTATIN 40 MG TABS 1 TABLET PO Q HS SIMVASTATIN 20887228093 Active Ian Valdez MD Active SIMVASTATIN 80 MG TABS Take one by mouth daily SIMVASTATIN 41834228708 No Longer Active Ian Valdez MD Active PREDNISONE 20 MG TAB 2 tabs daily for 3 days, 1 tab daily for 3 days, 1/2 tab daily for 2 days PREDNISONE 20484082892 No Longer Active Ian Valdez MD Active ZITHROMAX 250 MG TAB 2 po today, then 1 po q days 2-5 AZITHROMYCIN 51381212950 No Longer Active Ian Valdez MD Active TRAZODONE HCL 100 MG TABS 2 TABS PO Q HS TRAZODONE HCL 51685828339 Active Ian Valdez MD Active ZITHROMAX 250 MG TAB 2 po today, then 1 po q days 2-5 AZITHROMYCIN 40269590989 No Longer Active Ian Valdez MD Active SIMVASTATIN 80 MG TABS Take one by mouth daily SIMVASTATIN 80 MG TABS 429903 SIMVASTATIN Inactive AURALGAN 1.4-5.5 % SOLN AURALGAN 1.4-5.5 % SOLN BENZOCAINE-ANTIPYRINE Inactive ZITHROMAX 1 GM PACK DIRECTED ZITHROMAX 1 GM PACK 577671 AZITHROMYCIN Inactive CHANTIX STARTING MONTH REBEKAH 0.5 MG X 11 & 1 MG X 42 TABS 0.5mg daily for 3 days , then 0.5mg BID for 4 days, then 1mg BID CHANTIX STARTING MONTH REBEKAH 0.5 MG X 11 & 1 MG X 42 TABS VARENICLINE TARTRATE Inactive ZITHROMAX 1 GM PACK DIRECTED ZITHROMAX 1 GM PACK 646687 AZITHROMYCIN Inactive MOBIC 7.5 MG TABS 1 tablet by mouthonce a day MOBIC 7.5 MG TABS 933151 MELOXICAM Inactive KLONOPIN 0.5 MG TABS 1 TABLET PO PRN KLONOPIN 0.5 MG TABS 172059 CLONAZEPAM Inactive CIPRO 500 MG TAB 1 tablet by mouth twice daily CIPRO 500 MG TAB 116203 CIPROFLOXACIN HCL Inactive AZITHROMYCIN 500 MG TABS 1 PO q day x 6 days AZITHROMYCIN 500 MG TABS 5118714 AZITHROMYCIN Inactive CYCLOBENZAPRINE HCL 10 MG TABS 1 PO q 8 hrs PRN muscle spasm 2012 CYCLOBENZAPRINE HCL 10 MG TABS 832532 CYCLOBENZAPRINE HCL Inactive METFORMIN HCL 500 MG [...] bid prn anxiety. XANAX 0.25 MG TABS 162097 ALPRAZOLAM Inactive LAMISIL AT 1 % CREA apply bid to rash LAMISIL AT 1 % CREA 612747 TERBINAFINE HCL Inactive TOPAMAX 25 MG TABS 1 tab po qhs x 1 week, then take 2 tabs po qhs TOPAMAX 25 MG TABS 689933 TOPIRAMATE Inactive TERBINAFINE HCL 1 % CREA Apply bid to rash TERBINAFINE HCL 1 % CREA 518892 TERBINAFINE HCL Inactive ZITHROMAX 250 MG TAB 2 po today, then 1 po q days 2-5 ZITHROMAX 250 MG TAB 4774625 AZITHROMYCIN Inactive ZITHROMAX 250 MG TAB 2 po today, then 1 po q days 2-5 ZITHROMAX 250 MG TAB 5458349 AZITHROMYCIN Inactive PREDNISONE 20 MG TAB 2 tabs daily for 3 days, 1 tab daily for 3 days, 1/2 tab daily for 2 days PREDNISONE 20 MG TAB 090695 PREDNISONE Inactive PREDNISONE 20 MG TAB 3 tabs daily for 3 days, 2 tab daily for 3 days, 1 tab daily for 2 days, then 1/2 tab dialy for 2 days PREDNISONE 20 MG TAB 277987 PREDNISONE Inactive OMEPRAZOLE 20 MG CPDR 1 tablet by mouth daily OMEPRAZOLE 20 MG CPDR 015502 OMEPRAZOLE Inactive PREDNISONE 20 MG TABS 3 qd x 2d, 2 qd x 2d, 1 qd x 2d, 1/2 qd x 2d PREDNISONE 20 MG TABS 836685 PREDNISONE Inactive TERBINAFINE HCL 250 MG TABS 1 qDay TERBINAFINE HCL 250 MG TABS 012538 TERBINAFINE HCL Inactive Advance Directives Directive Description Start Date NO HEROIC MEASURES Immunizations Vaccine Administration Date Value Standard Description Boostrix (Tetanus toxoid, reduced diphtheria toxoid and acellular pertussis vaccine, adsorbed), booster Boostrix [[id number]] tetanus toxoid, reduced diphtheria toxoid, and acellular pertussis vaccine, adsorbed Vital Signs Date Name Value Unit Range Description blood pressure, diastolic - 8462-4 86 mm[Hg] [...] E&M - 3141-9 214 [lb_av] Weight Measured blood pressure, diastolic - 8462-4 80 mm[Hg] BP aguillon blood pressure, systolic - 8480-6 138 mm[Hg] BP sys height E&M - 8302-2 64 [in_us] Bdy height pulse rate E&M - 8867-4 105 /min Heart rate temperature E&M 98.1 [degF] Body temperature weight E&M - 3141-9 215 [lb_av] Weight Measured blood pressure, diastolic - 8462-4 74 mm[Hg] BP [place] blood pressure, systolic - 8480-6 111 mm[Hg] BP sys height E&M - 8302-2 64 [in_us] Bdy height pulse rate E&M - 8867-4 116 /min Heart rate temperature E&M 97.5 [degF] Body temperature weight E&M - 3141-9 218 [lb_av] Weight Measured blood pressure, diastolic - 8462-4 89 mm[Hg] BP [place] blood pressure, systolic - 8480-6 158 mm[Hg] BP sys height E&M - 8302-2 64 [in_us] Bdy height pulse rate E&M - 8867-4 90 /min Heart rate temperature E&M 96.6 [degF] Body temperature weight E&M - 3141-9 221 [lb_av] Weight Measured blood pressure, diastolic - 8462-4 98 mm[Hg] BP [place] blood pressure, systolic - 8480-6 158 mm[Hg] BP sys height E&M - 8302-2 64 [in_us] Bdy height pulse rate E&M - 8867-4 98 /min Heart rate temperature E&M 98.7 [degF] Body temperature weight E&M - 3141-9 226.38 [lb_av] Weight Measured Diagnostic Results Date Name [...] count 307 10^3/MM^3 10*3/mm3 142-424 Lab Report: CBC, HGBA1C, Comp. Metabolic Panel - Chemistry hemoglobin A1C, blood, as % of total hemoglobin 5.3 % 4.3-6.0 sodium, serum 139 mmol/L 840-845 4771/02/24 potassium, serum 4.4 mmol/L 3.5-5.2 chloride, serum [...] CBC, HGBA1C, Comp. Metabolic Panel - Hematology mean corpuscular volume, RBC 91 fL 80-97 hematocrit, blood 46.3 % 36.0-46.0 hemoglobin, blood 15.6 g/dL 12.0-16.0 erythrocyte (RBC) count 5.09 10^6/MM^3 10*6/mm3 4.04-5.48 leukocyte count, blood 8.4 10^3/MM^3 10*3/mm3 4.6-10.2 mean corpuscular hemoglobin, RBC 30.7 pg 27.0-31.2 mean corpuscular hemoglobin concentration, RBC 33.8 G/DL % 31.8- 35.4 red blood cell distribution width 13.6 % 11.6-14.8 platelet count 364 10^3/MM^3 10*3/mm3 142-424 Lab Report: HGBA1C, Free Thyroxine (L), Thyroid Stimulating Hormone (L), ... - Chemistry hemoglobin A1C, blood, as % of total hemoglobin 5.1 % 4.3-6.0 thyroxine, serum, free 1.02 ng/dL 0.76-1.46 TSH 1.44 m[iU]/mL 0.36-3.74 cholesterol, serum 144 mg/dL 761-349 5621/11/19 triglyceride, serum, fasting 172 mg/dL 30-200 HDL cholesterol, serum 30 mg/dL 32-96 LDL cholesterol, serum 80 mg/dL 0-130 sodium, serum 137 mmol/L 154-890 9675/11/19 potassium, serum 4.1 mmol/L 3.5-5.2 chloride, serum 100 mmol/L 98-107 carbon dioxide, venous blood 26.9 mmol/L 21.0-32.0 blood glucose 84 mg/dL 65-110 urea nitrogen, blood 11 mg/dL 7-18 creatinine, serum 0.90 mg/dL 0.60-1.30 alanine aminotransferase (SGPT), serum 23 U/L 12-78 aspartate aminotransferase (SGOT), serum 17 U/L 15-37 calcium, serum 9.5 mg/dL 8.5-10.1 bilirubin, serum, total 0.70 mg/dL 0.00-1.00 Lab Report: Lipid Panel - Chemistry cholesterol, serum 118 mg/dL 035-673 8591/02/24 triglyceride, serum, fasting 141 mg/dL 30-200 HDL cholesterol, serum 20 mg/dL 32-96 LDL cholesterol, serum 70 mg/dL 0-130 Office Visit: Consult infertility - Chemistry human chorionic gonadotropin, urine, qualitative (urine test) Negative Office Visit: wellness exam for insurance/ diabetes check - Chemistry cholesterol, target level 200 mg/dL LDL target level 100 mg/dL HDL cholesterol, serum, target level 40 mg/dL triglyceride, target level 150 mg/dL Encounters Code Encounter Date Provider Facility CPT-67692 Level 4 Est. 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 Patient 15:32:41 QUILTING MACHINE OPERATOR Juan Smith MD [facility] CPT-79365 Level 3 Est. Patient 14:45:01 CDT Eva Ferrara MD PhD [facility] CPT-74657 Level 3 Est. Patient 14:54:10 CDT Ian Valdez MD [facility] CPT-43195 Level 4 Est. Patient 20:36:52 CDT Ian Valdez MD [facility] CPT-11998 Level 4 Est. Patient 11:14:30 QUILTING MACHINE OPERATOR Ian Valdez MD [facility] CPT-50027 Level 3 Est. Patient 19:08:34 QUILTING MACHINE OPERATOR Ian Valdez MD [facility] CPT-90366 Level 3 Est. Patient 13:17:39 QUILTING MACHINE OPERATOR Ian Valdez MD [facility] CPT-24430 Level 4 Est. Patient 18:56:10 CDT Ian Valdez MD [facility] CPT-29584 Level 4 Est. Patient 16:55:56 CDT Ian Valdez MD [facility] CPT-48345 Level 3 Est. Patient 11:27:07 CDT Ian Valdez MD [facility] CPT-91543 Level 3 Est. Patient 15:17:44 CDT Law FIGUEROA [facility] CPT-91189 Level 4 Est. Patient 15:13:53 CDT [place] FIGUEROA [facility] CPT-04075 Level 3 Est. Patient 14:25:12 QUILTING MACHINE OPERATOR Ian Valdez MD [facility] CPT-13112 Level 3 Est. Patient 10:24:46 CDT Ian Valdez MD [facility] CPT-67904 Level 3 Est. Patient 15:34:19 CDT Ian Valdez MD [facility] CPT-38364 Level 3 Est. Patient 14:22:41 CDT Ian Valdez MD [facility] CPT-51929 Level 3 Est. Patient 15:07:22 QUILTING MACHINE OPERATOR Ian Valdez MD [facility] CPT-80348 Level 3 New Patient 09:06:43 QUILTING MACHINE OPERATOR Ian Valdez MD [facility] CPT-28787 Level 3 Est. Patient 15:09:00 QUILTING MACHINE OPERATOR Ian Valdez MD [facility] Procedures Code Procedure Name Date Entry Date Standard Description CPT-OV Office Visit 15:49:26 QUILTING MACHINE OPERATOR CPT-J1885 Toradol 60 mg (Ketorolac) 15:37:32 CDT CPT-28121 Abx/Therapy Injection 15:37:32 CDT CPT-J1885 Toradol 60 mg (Ketorolac) 14:45:01 CDT CPT-OV Office Visit 15:19:52 CDT CPT-OV Office Visit 10:41:01 CDT CPT-78461 Core biop breast wo imaging 16:50:06 CDT CPT-OV Office Visit 16:50:05 CDT CPT-09250 UHCG (floor use only) 13:39:36 CDT CPT-29661 Nexplanon Placement 10:11:48 CDT CPT-J7307 Nexplanon (Implant) 10:11:48 CDT CPT-OV Office Visit 09:54:18 CDT CPT-70106 EKG Trac and Interp 16:50:19 CDT CPT-16919 Venipuncture Draw Fee 15:06:08 CDT CPT-J2930 Solu Medrol 125 mg (Methyl Prednisolone Sodium Succinate) 12:44:46 CDT CPT-J1055 Depo Provera 150 mg (Medroxyprogesterone) 12:44:46 CDT CPT-31732 Abx/Therapy Injection 12:44:46 CDT CPT-J1055 Depo Provera 150 mg (Medroxyprogesterone) 14:28:41 CDT CPT-J2930 Solu Medrol 125 mg (Methyl Prednisolone Sodium Succinate) 14:22:41 CDT CPT-07383 Administration single or combination vaccine inc oral 10 :08:06 CDT CPT-98704 Tdap 10:08:06 CDT CPT-G0402 Wlcm To Medicare Ex 22:17:30 CDT CPT-43340 Venipuncture Draw Fee 10:33:07 QUILTING MACHINE OPERATOR CPT-01287 Venipuncture Draw Fee 10:17:37 QUILTING MACHINE OPERATOR CPT-G0403 EKG Wlc To Medicare 22:17:30 CDT
--- OUTSIDE RECORDS SUMMARY | 2018-07-17 21:35 | XMS REPORT | Clinical Summary ---
Author Author Admin, ARIAN Organization [facility] Address Unknown Phone Unavailable Allergies, Adverse [...] Smith MD Lump or mass in breast Influenza like illness 487.1 Active Najma Vaughn APRN Influenza with other respiratory manifestations SINUSITIS ICD-473.9 Inactive Ian Valdez MD SCABIES [...] Generic Name NDC Status Provider Patient Instruction DOXYCYCLINE HYCLATE 100 MG CAP 1 cap by mouth twice daily DOXYCYCLINE HYCLATE 71397243108 Active Najma Vaughn SAMI Active MULTIVITAMINS CAPS 1 tablet daily MULTIPLE VITAMIN 74619778839 Active Juan Smith MD Active CYCLOBENZAPRINE HCL 10 MG TABS 1/2 - 1 tab by mouth three times daily if needed for spasms/pain CYCLOBENZAPRINE HCL 44061024617 Active Ian Valdez MD Active GLUCOPHAGE 500 MG TABS 1 tab BID with morning and night meals METFORMIN HCL 86917964765 Active Eva Ferrara MD PhD Active PROGESTERONE MICRONIZED 100 MG CAPS 2 caps daily day 16 thru 25 of cycle 2013 PROGESTERONE MICRONIZED 63214294488 Active Eva Ferrara MD PhD Active TERBINAFINE HCL 1 % CREA Apply bid to rash TERBINAFINE HCL 17596075626 No Longer Active Eva Ferrara MD PhD Active TOPAMAX 25 MG TABS 1 tab po qhs x 1 week, then take 2 tabs po qhs TOPIRAMATE 69381248918 No Longer Active Thom Gilbert MD Active ULTRAM 50 MG TAB take 1 tab po q6hrs prn pain TRAMADOL HCL 74288050727 Active Ian Valdez MD Active LAMISIL AT 1 % CREA apply bid to rash TERBINAFINE HCL 02670073387 No Longer Active Thom Gilbert MD Active TERBINAFINE HCL 250 MG TABS 1 qDay TERBINAFINE HCL 06272411679 No Longer Active Ian Valdez MD Active XANAX 0.25 MG TABS take 1 tab po bid prn anxiety. ALPRAZOLAM 75985750008 No Longer Active Ian Valdez MD Active FISH OIL 1000 MG CAPS 2 caps PO once daily at bedtime OMEGA-3 FATTY ACIDS 04048569246 No Longer Active Ian Valdez MD Active KLOR-CON M20 20 MEQ CR-TABS take 1 tab po qday with lasix POTASSIUM CHLORIDE GALILEO CR 16657013529 Active Ian Valdez MD Active LASIX 20 MG TAB 1 tablet by mouth daily prn swelling FUROSEMIDE 61643783412 Active Ian Valdez MD Active FLONASE 50 MCG/ACT SUSP 2 puffs in each nostril once daily at bedtime FLUTICASONE PROPIONATE 20635322509 Active Ian Valdez MD Active CVS MELATONIN 3 MG TABS 2 tabs PO at bedtime MELATONIN 75615669444 Active Ian Valdez MD Active PULMICORT FLEXHALER 180 MCG/ACT AEPB 2 INH BID BUDESONIDE 76585519678 No Longer Active Ian Valdez MD Active METFORMIN HCL 500 MG TB24 1 TAB PO Q HS METFORMIN HCL 92360457351 No Longer Active Ian Valdez MD Active CYCLOBENZAPRINE HCL 10 MG TABS 1 PO q 8 hrs PRN muscle spasm 2012 CYCLOBENZAPRINE HCL 08077236003 No Longer Active Ian Valdez MD Active AZITHROMYCIN 500 MG TABS 1 PO q day x 6 days AZITHROMYCIN 77628473895 No Longer Active Ian Valdez MD Active CIPRO 500 MG TAB 1 tablet by mouth twice daily CIPROFLOXACIN HCL 50345000721 No Longer Active Ian Valdez MD Active PREDNISONE 20 MG TABS 3 qd x 2d, 2 qd x 2d, 1 qd x 2d, 1/2 qd x 2d PREDNISONE 53840970740 No Longer Active Law FIGUEROA Active CELEXA 40 MG TABS 2 PO DAILY CITALOPRAM HYDROBROMIDE 11343440239 Active Ian Valdez MD Active OMEPRAZOLE 20 MG CPDR 1 tablet by mouth daily OMEPRAZOLE 20696845142 No Longer Active [place] FIGUEROA Active KLONOPIN 0.5 MG TABS 1 TABLET PO PRN CLONAZEPAM 36403821794 No Longer Active [place] FIGUEROA Active MOBIC 7.5 MG TABS 1 tablet by mouthonce a day MELOXICAM 86580483955 No Longer Active [place] FIGUEROA Active ZITHROMAX 1 GM PACK DIRECTED AZITHROMYCIN 32427545476 No Longer Active Ian Valdez MD Active ALBUTEROL SULFATE 0.083 % NEBU SOLN one vial per nebulizer every 4-6 hours as needed ALBUTEROL SULFATE 17983671029 Active Ian Valdez MD Active CHANTIX STARTING MONTH REBEKAH 0.5 MG X 11 & 1 MG X 42 TABS 0.5mg daily for 3 days , then 0.5mg BID for 4 days, then 1mg BID VARENICLINE TARTRATE 09033790202 No Longer Active Ian Valdez MD Active ZITHROMAX 1 GM PACK DIRECTED AZITHROMYCIN 52710842592 No Longer Active Ian Valdez MD Active AURALGAN 1.4-5.5 % SOLN BENZOCAINE-ANTIPYRINE 65827810182 No Longer Active Ian Valdez MD Active PREDNISONE 20 MG TAB 3 tabs daily for 3 days, 2 tab daily for 3 days, 1 tab daily for 2 days, then 1/2 tab dialy for 2 days PREDNISONE 27863058617 No Longer Active Ian Valdez MD Active SIMVASTATIN 40 MG TABS 1 TABLET PO Q HS SIMVASTATIN 76970071489 Active Ian Valdez MD Active SIMVASTATIN 80 MG TABS Take one by mouth daily SIMVASTATIN 68502089813 No Longer Active Ian Valdez MD Active PREDNISONE 20 MG TAB 2 tabs daily for 3 days, 1 tab daily for 3 days, 1/2 tab daily for 2 days PREDNISONE 90738414773 No Longer Active Ian Valdez MD Active ZITHROMAX 250 MG TAB 2 po today, then 1 po q days 2-5 AZITHROMYCIN 40881130145 No Longer Active Ian Valdez MD Active TRAZODONE HCL 100 MG TABS 2 TABS PO Q HS TRAZODONE HCL 03789715020 Active Ian Valdez MD Active ZITHROMAX 250 MG TAB 2 po today, then 1 po q days 2-5 AZITHROMYCIN 92858868692 No Longer Active Ian Valdez MD Active SIMVASTATIN 80 MG TABS Take one by mouth daily SIMVASTATIN 80 MG TABS 367931 SIMVASTATIN Inactive AURALGAN 1.4-5.5 % SOLN AURALGAN 1.4-5.5 % SOLN BENZOCAINE-ANTIPYRINE Inactive ZITHROMAX 1 GM PACK DIRECTED ZITHROMAX 1 GM PACK 577173 AZITHROMYCIN Inactive CHANTIX STARTING MONTH REBEKAH 0.5 MG X 11 & 1 MG X 42 TABS 0.5mg daily for 3 days , then 0.5mg BID for 4 days, then 1mg BID CHANTIX STARTING MONTH REBEKAH 0.5 MG X 11 & 1 MG X 42 TABS VARENICLINE TARTRATE Inactive ZITHROMAX 1 GM PACK DIRECTED ZITHROMAX 1 GM PACK 316211 AZITHROMYCIN Inactive MOBIC 7.5 MG TABS 1 tablet by mouthonce a day MOBIC 7.5 MG TABS 168149 MELOXICAM Inactive KLONOPIN 0.5 MG TABS 1 TABLET PO PRN KLONOPIN 0.5 MG TABS 040913 CLONAZEPAM Inactive CIPRO 500 MG TAB 1 tablet by mouth twice daily CIPRO 500 MG TAB 550235 CIPROFLOXACIN HCL Inactive AZITHROMYCIN 500 MG TABS 1 PO q day x 6 days AZITHROMYCIN 500 MG TABS 8730424 AZITHROMYCIN Inactive CYCLOBENZAPRINE HCL 10 MG TABS 1 PO q 8 hrs PRN muscle spasm 2012 CYCLOBENZAPRINE HCL 10 MG TABS 396280 CYCLOBENZAPRINE HCL Inactive METFORMIN HCL 500 MG [...] bid prn anxiety. XANAX 0.25 MG TABS 560011 ALPRAZOLAM Inactive LAMISIL AT 1 % CREA apply bid to rash LAMISIL AT 1 % CREA 272574 TERBINAFINE HCL Inactive TOPAMAX 25 MG TABS 1 tab po qhs x 1 week, then take 2 tabs po qhs TOPAMAX 25 MG TABS 235690 TOPIRAMATE Inactive TERBINAFINE HCL 1 % CREA Apply bid to rash TERBINAFINE HCL 1 % CREA 182819 TERBINAFINE HCL Inactive ZITHROMAX 250 MG TAB 2 po today, then 1 po q days 2-5 ZITHROMAX 250 MG TAB 5853712 AZITHROMYCIN Inactive ZITHROMAX 250 MG TAB 2 po today, then 1 po q days 2-5 ZITHROMAX 250 MG TAB 4379720 AZITHROMYCIN Inactive PREDNISONE 20 MG TAB 2 tabs daily for 3 days, 1 tab daily for 3 days, 1/2 tab daily for 2 days PREDNISONE 20 MG TAB 847307 PREDNISONE Inactive PREDNISONE 20 MG TAB 3 tabs daily for 3 days, 2 tab daily for 3 days, 1 tab daily for 2 days, then 1/2 tab dialy for 2 days PREDNISONE 20 MG TAB 964423 PREDNISONE Inactive OMEPRAZOLE 20 MG CPDR 1 tablet by mouth daily OMEPRAZOLE 20 MG CPDR 808559 OMEPRAZOLE Inactive PREDNISONE 20 MG TABS 3 qd x 2d, 2 qd x 2d, 1 qd x 2d, 1/2 qd x 2d PREDNISONE 20 MG TABS 418489 PREDNISONE Inactive TERBINAFINE HCL 250 MG TABS 1 qDay TERBINAFINE HCL 250 MG TABS 762726 TERBINAFINE HCL Inactive Advance Directives Directive Description Start Date NO HEROIC MEASURES Immunizations Vaccine Administration Date Value Standard Description Boostrix (Tetanus toxoid, reduced diphtheria toxoid and acellular pertussis vaccine, adsorbed), booster Boostrix [[id number]] tetanus toxoid, reduced diphtheria toxoid, and acellular [...] E&M - 3141-9 221 [lb_av] Weight Measured Diagnostic Results Date Name [...] 5.3 % 4.3-6.0 sodium, serum 139 mmol/L 457-500 6258/02/24 potassium, serum 4.4 mmol/L 3.5-5.2 chloride, serum [...] 1.44 m[iU]/mL 0.36-3.74 cholesterol, serum 144 mg/dL 901-648 1636/11/19 triglyceride, serum, fasting 172 mg/dL 30-200 HDL cholesterol, serum 30 mg/dL 32-96 LDL cholesterol, serum 80 mg/dL 0-130 sodium, serum 137 mmol/L 342-643 9037/11/19 potassium, serum 4.1 mmol/L 3.5-5.2 chloride, serum [...] Panel - Chemistry cholesterol, serum 118 mg/dL 238-016 7063/02/24 triglyceride, serum, fasting 141 mg/dL 30-200 HDL cholesterol, serum 20 mg/dL 32-96 LDL cholesterol, serum 70 mg/dL 0-130 Lab Report: TONY INFLUENZA A/B - Toxicology rapid flu test Negative Negative;Positive Office Visit: Consult infertility - Chemistry human chorionic gonadotropin, urine, qualitative (urine test) Negative Office Visit: wellness exam for insurance/ diabetes check - Chemistry cholesterol, target level 200 mg/dL LDL target level 100 mg/dL HDL cholesterol, serum, target level 40 mg/dL triglyceride, target level 150 mg/dL Encounters Code Encounter Date Provider Facility CPT-61223 Level 3 Est. Patient 15:50:27 HEALTHCARE SCIENCE SPECIALIST Najma Vaughn SAMI [facility] CPT-70964 Level 4 Est. Patient 21:20:00 HEALTHCARE SCIENCE SPECIALIST Ian Valdez MD [facility] CPT-09218 Level 3 Est. Patient 15:32:41 HEALTHCARE SCIENCE SPECIALIST Juan Smith MD [facility] CPT-66030 Level 3 Est. Patient 14:45:01 CDT Eva Ferrara MD PhD [facility] CPT-56944 Level 3 Est. Patient 14:54:10 CDT Ian Valdez MD [facility] CPT-19722 Level 4 Est. Patient 20:36:52 CDT Ian Valdez MD [facility] CPT-00353 Level 4 Est. Patient 11:14:30 HEALTHCARE SCIENCE SPECIALIST Ian Valdez MD [facility] CPT-58278 Level 3 Est. Patient 19:08:34 HEALTHCARE SCIENCE SPECIALIST Ian Valdez MD [facility] CPT-21829 Level 3 Est. Patient 13:17:39 HEALTHCARE SCIENCE SPECIALIST Ian Valdez MD [facility] CPT-96973 Level 4 Est. Patient 18:56:10 CDT Ian Valdez MD [facility] CPT-69015 Level 4 Est. Patient 16:55:56 CDT Ian Valdez MD [facility] CPT-94862 Level 3 Est. Patient 11:27:07 CDT Ian Valdez MD [facility] CPT-65472 Level 3 Est. Patient 15:17:44 CDT Law FIGUEROA [facility] CPT-23533 Level 4 Est. Patient 15:13:53 CDT Wellington FIGUEROA [facility] CPT-75599 Level 3 Est. Patient 14:25:12 HEALTHCARE SCIENCE SPECIALIST Ian Valdez MD [facility] CPT-69847 Level 3 Est. Patient 10:24:46 CDT Ian Valdez MD [facility] CPT-24458 Level 3 Est. Patient 15:34:19 CDT Ian Valdez MD [facility] CPT-72634 Level 3 Est. Patient 14:22:41 CDT Ian Valdez MD [facility] CPT-23863 Level 3 Est. Patient 15:07:22 HEALTHCARE SCIENCE SPECIALIST Ian Valdez MD [facility] CPT-05395 Level 3 New Patient 09:06:43 HEALTHCARE SCIENCE SPECIALIST Ian Valdez MD [facility] CPT-73798 Level 3 Est. Patient 15:09:00 HEALTHCARE SCIENCE SPECIALIST Ian Valdez MD [facility] Procedures Code Procedure Name Date Entry Date Standard Description CPT-OV Office Visit 15:49:26 HEALTHCARE SCIENCE SPECIALIST CPT-J1885 Toradol 60 mg (Ketorolac) 15:37:32 CDT CPT-49437 Abx/Therapy Injection 15:37:32 CDT CPT-J1885 Toradol 60 mg (Ketorolac) 14:45:01 CDT CPT-OV Office Visit 15:19:52 CDT CPT-OV Office Visit 10:41:01 CDT CPT-39542 Core biop breast wo imaging 16:50:06 CDT CPT-OV Office Visit 16:50:05 CDT CPT-23821 UHCG (floor use only) 13:39:36 CDT CPT-58740 Nexplanon Placement 10:11:48 CDT CPT-J7307 Nexplanon (Implant) 10:11:48 CDT CPT-OV Office Visit 09:54:18 CDT CPT-57168 EKG Trac and Interp 16:50:19 CDT CPT-80361 Venipuncture Draw Fee 15:06:08 CDT CPT-J2930 Solu Medrol 125 mg (Methyl Prednisolone Sodium Succinate) 12:44:46 CDT CPT-J1055 Depo Provera 150 mg (Medroxyprogesterone) 12:44:46 CDT CPT-82338 Abx/Therapy Injection 12:44:46 CDT CPT-J1055 Depo Provera 150 mg (Medroxyprogesterone) 14:28:41 CDT CPT-J2930 Solu Medrol 125 mg (Methyl Prednisolone Sodium Succinate) 14:22:41 CDT CPT-99914 Administration single or combination vaccine inc oral 10 :08:06 CDT CPT-81178 Tdap 10:08:06 CDT CPT-G0402 Wlcm To Medicare Ex 22:17:30 CDT CPT-45201 Venipuncture Draw Fee 10:33:07 HEALTHCARE SCIENCE SPECIALIST CPT-19217 Venipuncture Draw Fee 10:17:37 HEALTHCARE SCIENCE SPECIALIST CPT-G0403 EKG Wlc To Medicare 22:17:30 CDT
--- OUTSIDE RECORDS SUMMARY | 2018-07-17 21:36 | XMS REPORT | Clinical Summary ---
Author Author Admin, ARIAN Organization [facility] Address Unknown Phone Unavailable Allergies, Adverse Reactions, [...] sinusitis (chronic) CONTACT DERMATITIS DUE TO POISON ACRINE 692.6 Resolved Ian Valdez MD Contact dermatitis [...] Ian Valdez MD Edema Chronic pain 338.29 Inactive Thom [...] wound infection not elsewhere classified Dysphagia 787.20 Active Thom Gilbert MD Dysphagia, unspecified SINUSITIS ICD-473.9 Inactive Ian Valdez MD [...] sprain, left ICD-845.00 Inactive Ian Valdez MD Chronic pain ICD-338.29 Inactive Thom Gilbert MD Unspecified procreative management ICD-V26.9 Inactive Thom Gilbert MD Tinea cruris ICD-110.3 Inactive Thom Gilbert MD Breast mass, right ICD-611.72 Inactive Thom Gilbert MD Wound infection ICD-958.3 Inactive Thom Gilbert MD Medication List Medication Instructions Start Date Stop Date Generic Name NDC Status Provider Patient Instruction TERBINAFINE HCL 1 % CREA Apply bid to rash TERBINAFINE HCL 59609427622 Active Ian Valdez MD Active TOPAMAX 25 MG TABS 1 tab po qhs x 1 week, then take 2 tabs po qhs TOPIRAMATE 91800000144 No Longer Active Thom Gilbert MD Active ULTRAM 50 MG TAB take 1 tab po q6hrs prn pain TRAMADOL HCL 37581368648 Active Ian Valdez MD Active LAMISIL AT 1 % CREA apply bid to rash TERBINAFINE HCL 42733495263 No Longer Active Thom Gilbert MD Active TERBINAFINE HCL 250 MG TABS 1 qDay TERBINAFINE HCL 25644816791 No Longer Active Ian Valdez MD Active XANAX 0.25 MG TABS take 1 tab po bid prn anxiety. ALPRAZOLAM 04070173225 No Longer Active Ian Valdez MD Active FISH OIL 1000 MG CAPS 2 caps PO once daily at bedtime OMEGA-3 FATTY ACIDS 57620479428 No Longer Active Ian Valdez MD Active KLOR-CON M20 20 MEQ CR-TABS take 1 tab po qday with lasix POTASSIUM CHLORIDE GALILEO CR 98618348971 Active Ian Valdez MD Active LASIX 20 MG TAB 1 tablet by mouth daily prn swelling FUROSEMIDE 67097431935 Active Ian Valdez MD Active FLONASE 50 MCG/ACT SUSP 2 puffs in each nostril once daily at bedtime FLUTICASONE PROPIONATE 92428220174 Active Ian Valdez MD Active [facility]S MELATONIN 3 MG TABS 2 tabs PO at bedtime MELATONIN 92213431014 Active Ian Valdez MD Active PULMICORT FLEXHALER 180 MCG/ACT AEPB 2 INH BID BUDESONIDE 08167093196 No Longer Active Ian Valdez MD Active METFORMIN HCL 500 MG TB24 1 TAB PO Q HS METFORMIN HCL 54322601921 No Longer Active Ian Valdez MD Active CYCLOBENZAPRINE HCL 10 MG TABS 1 PO q 8 hrs PRN muscle spasm 2012 CYCLOBENZAPRINE HCL 99958416864 No Longer Active Ian Valdez MD Active AZITHROMYCIN 500 MG TABS 1 PO q day x 6 days AZITHROMYCIN 39549733562 No Longer Active Ian Valdez MD Active CIPRO 500 MG TAB 1 tablet by mouth twice daily CIPROFLOXACIN HCL 16922257966 No Longer Active Ian Valdez MD Active PREDNISONE 20 MG TABS 3 qd x 2d, 2 qd x 2d, 1 qd x 2d, 1/2 qd x 2d PREDNISONE 11407382150 No Longer Active Law FIGUEROA Active CELEXA 40 MG TABS 2 PO DAILY CITALOPRAM HYDROBROMIDE 10541553355 Active Ian Valdez MD Active OMEPRAZOLE 20 MG CPDR 1 tablet by mouth daily OMEPRAZOLE 33398847762 No Longer Active [place] FIGUEROA Active KLONOPIN 0.5 MG TABS 1 TABLET PO PRN CLONAZEPAM 51029642915 No Longer Active [place] FIGUEROA Active MOBIC 7.5 MG TABS 1 tablet by mouthonce a day MELOXICAM 83976583609 No Longer Active [place] FIGUEROA Active ZITHROMAX 1 GM PACK DIRECTED AZITHROMYCIN 25273839900 No Longer Active Ian Valdez MD Active ALBUTEROL SULFATE 0.083 % NEBU SOLN one vial per nebulizer every 4-6 hours as needed ALBUTEROL SULFATE 42496731159 Active Ian Valdez MD Active CHANTIX STARTING MONTH REBEKAH 0.5 MG X 11 & 1 MG X 42 TABS 0.5mg daily for 3 days , then 0.5mg BID for 4 days, then 1mg BID VARENICLINE TARTRATE 14466009584 No Longer Active Ian Valdez MD Active ZITHROMAX 1 GM PACK DIRECTED AZITHROMYCIN 92553310120 No Longer Active Ian Valdez MD Active AURALGAN 1.4-5.5 % SOLN BENZOCAINE-ANTIPYRINE 57773292331 No Longer Active Ian Valdez MD Active PREDNISONE 20 MG TAB 3 tabs daily for 3 days, 2 tab daily for 3 days, 1 tab daily for 2 days, then 1/2 tab dialy for 2 days PREDNISONE 32748279791 No Longer Active Ian Valdez MD Active SIMVASTATIN 40 MG TABS 1 TABLET PO Q HS SIMVASTATIN 24013898847 Active Ian Valdez MD Active SIMVASTATIN 80 MG TABS Take one by mouth daily SIMVASTATIN 17802355058 No Longer Active Ian Valdez MD Active PREDNISONE 20 MG TAB 2 tabs daily for 3 days, 1 tab daily for 3 days, 1/2 tab daily for 2 days PREDNISONE 33195148879 No Longer Active Ian Valdez MD Active ZITHROMAX 250 MG TAB 2 po today, then 1 po q days 2-5 AZITHROMYCIN 67454607436 No Longer Active Ian Valdez MD Active TRAZODONE HCL 100 MG TABS 2 TABS PO Q HS TRAZODONE HCL 82368719489 Active Ian Valdez MD Active ZITHROMAX 250 MG TAB 2 po today, then 1 po q days 2-5 AZITHROMYCIN 90519674615 No Longer Active Ian Valdez MD Active SIMVASTATIN 80 MG TABS Take one by mouth daily SIMVASTATIN 80 MG TABS 936922 SIMVASTATIN Inactive AURALGAN 1.4-5.5 % SOLN AURALGAN 1.4-5.5 % SOLN BENZOCAINE-ANTIPYRINE Inactive ZITHROMAX 1 GM PACK DIRECTED ZITHROMAX 1 GM PACK 325499 AZITHROMYCIN Inactive CHANTIX STARTING MONTH REBEKAH 0.5 MG X 11 & 1 MG X 42 TABS 0.5mg daily for 3 days , then 0.5mg BID for 4 days, then 1mg BID CHANTIX STARTING MONTH REBEKAH 0.5 MG X 11 & 1 MG X 42 TABS VARENICLINE TARTRATE Inactive ZITHROMAX 1 GM PACK DIRECTED ZITHROMAX 1 GM PACK 418373 AZITHROMYCIN Inactive MOBIC 7.5 MG TABS 1 tablet by mouthonce a day MOBIC 7.5 MG TABS 365820 MELOXICAM Inactive KLONOPIN 0.5 MG TABS 1 TABLET PO PRN KLONOPIN 0.5 MG TABS 807687 CLONAZEPAM Inactive CIPRO 500 MG TAB 1 tablet by mouth twice daily CIPRO 500 MG TAB 437263 CIPROFLOXACIN HCL Inactive AZITHROMYCIN 500 MG TABS 1 PO q day x 6 days AZITHROMYCIN 500 MG TABS 2264093 AZITHROMYCIN Inactive CYCLOBENZAPRINE HCL 10 MG TABS 1 PO q 8 hrs PRN muscle spasm 2012 CYCLOBENZAPRINE HCL 10 MG TABS 592690 CYCLOBENZAPRINE HCL Inactive METFORMIN HCL 500 MG [...] bid prn anxiety. XANAX 0.25 MG TABS 646205 ALPRAZOLAM Inactive LAMISIL AT 1 % CREA apply bid to rash LAMISIL AT 1 % CREA 681385 TERBINAFINE HCL Inactive TOPAMAX 25 MG TABS 1 tab po qhs x 1 week, then take 2 tabs po qhs TOPAMAX 25 MG TABS 029907 TOPIRAMATE Inactive ZITHROMAX 250 MG TAB 2 po today, then 1 po q days 2-5 ZITHROMAX 250 MG TAB 7798824 AZITHROMYCIN Inactive ZITHROMAX 250 MG TAB 2 po today, then 1 po q days 2-5 ZITHROMAX 250 MG TAB 7732442 AZITHROMYCIN Inactive PREDNISONE 20 MG TAB 2 tabs daily for 3 days, 1 tab daily for 3 days, 1/2 tab daily for 2 days PREDNISONE 20 MG TAB 039945 PREDNISONE Inactive PREDNISONE 20 MG TAB 3 tabs daily for 3 days, 2 tab daily for 3 days, 1 tab daily for 2 days, then 1/2 tab dialy for 2 days PREDNISONE 20 MG TAB 197069 PREDNISONE Inactive OMEPRAZOLE 20 MG CPDR 1 tablet by mouth daily OMEPRAZOLE 20 MG CPDR 552777 OMEPRAZOLE Inactive PREDNISONE 20 MG TABS 3 qd x 2d, 2 qd x 2d, 1 qd x 2d, 1/2 qd x 2d PREDNISONE 20 MG TABS 157924 PREDNISONE Inactive TERBINAFINE HCL 250 MG TABS 1 qDay TERBINAFINE HCL 250 MG TABS 967577 TERBINAFINE HCL Inactive Advance Directives Directive Description Start Date NO HEROIC MEASURES Immunizations Vaccine Administration Date Value Standard Description Combined Xcqznlwekh-Zbithug-lqvwzkpov Pertussis (dTpa) Vaccine - Booster 07/05 Boostrix [[id number]] tetanus toxoid, reduced diphtheria toxoid, and acellular pertussis vaccine, adsorbed Vital Signs Date Name Value Unit Range Description blood pressure, diastolic 85 mm[Hg] BP aguillon blood pressure, systolic 143 mm[Hg] BP sys pulse rate E&M 98 /min Heart rate temperature E&M 98.6 [degF] Body temperature weight E&M 216 [lb_av] Weight Measured blood pressure, diastolic 86 mm[Hg] BP agu[place] blood pressure, systolic 144 mm[Hg] BP sys pulse rate E&M 102 /min Heart rate temperature E&M 97.3 [degF] Body temperature weight E&M 218.4 [lb_av] Weight Measured blood pressure, diastolic 84 mm[Hg] BP [place] blood pressure, systolic 141 mm[Hg] BP sys pulse rate E&M 89 /min Heart rate temperature E&M 98.2 [degF] Body temperature weight E&M 214 [lb_av] Weight Measured blood pressure, diastolic 80 mm[Hg] BP aguillon [...] temperature weight E&M 224 [lb_av] Weight Measured Diagnostic Results Date Name Value Unit Range Description Lab Report: CBC, HGBA1C, Comp. Metabolic Panel - Chemistry hemoglobin A1C, blood, as % of total hemoglobin 5.3 % 4.3-6.0 sodium, serum 139 mmol/L 027-575 6460/02/24 potassium, serum 4.4 mmol/L 3.5-5.2 chloride, serum [...] Panel - Chemistry cholesterol, serum 118 mg/dL 697-689 9144/02/24 triglyceride, serum, fasting 141 mg/dL 30-200 HDL cholesterol, serum 20 mg/dL 32-96 LDL cholesterol, serum 70 mg/dL 0-130 Office Visit: Consult infertility - Chemistry human chorionic gonadotropin, urine, qualitative (urine test) Negative Encounters Code Encounter Date Provider Facility CPT-94128 Level 3 Est. Patient 14:54:10 CDT Ian Valdez MD [facility] CPT-56146 Level 4 Est. Patient 20:36:52 CDT Ian Valdez MD [facility] CPT-12885 Level 4 Est. Patient 11:14:30 PIPE STRESS ENGINEER Ian Valdez MD [facility] CPT-98966 Level 3 Est. Patient 19:08:34 PIPE STRESS ENGINEER Ian Valdez MD [facility] CPT-88535 Level 3 Est. Patient 13:17:39 PIPE STRESS ENGINEER Ian Valdez MD [facility] CPT-14676 Level 4 Est. Patient 18:56:10 CDT Ian Valdez MD [facility] CPT-18001 Level 4 Est. Patient 16:55:56 CDT Ian Valdez MD [facility] CPT-79979 Level 3 Est. Patient 11:27:07 CDT Ian Valdez MD [facility] CPT-33752 Level 3 Est. Patient 15:17:44 CDT Law Rosas [facility] CPT-06367 Level 4 Est. Patient 15:13:53 CDT Wellington Muniz [facility] CPT-23256 Level 3 Est. Patient 14:25:12 PIPE STRESS ENGINEER Ian Valdez MD [facility] CPT-21538 Level 3 Est. Patient 10:24:46 CDT Ian Valdez MD [facility] CPT-38936 Level 3 Est. Patient 15:34:19 CDT Ian Valdez MD [facility] CPT-84686 Level 3 Est. Patient 14:22:41 CDT Ian Valdez MD [facility] CPT-52419 Level 3 Est. Patient 15:07:22 PIPE STRESS ENGINEER Ian Valdez MD [facility] CPT-58540 Level 3 New Patient 09:06:43 PIPE STRESS ENGINEER Ian Valdez MD [facility] CPT-49808 Level 3 Est. Patient 15:09:00 PIPE STRESS ENGINEER Ian Valdez MD [facility] Procedures Code Procedure Name Date Entry Date Standard Description CPT-OV Office Visit 15:19:52 CDT CPT-OV Office Visit 10:41:01 CDT CPT-36138 Core biop breast wo imaging 16:50:06 CDT CPT-OV Office Visit 16:50:05 CDT CPT-41509 UHCG (floor use only) 13:39:36 CDT CPT-12884 Nexplanon Placement 10:11:48 CDT CPT-J7307 Nexplanon (Implant) 10:11:48 CDT CPT-OV Office Visit 09:54:18 CDT CPT-53259 EKG Trac and Interp 16:50:19 CDT CPT-35218 Venipuncture Draw Fee 15:06:08 CDT CPT-J2930 Solu Medrol 125 mg (Methyl Prednisolone Sodium Succinate) 12:44:46 CDT CPT-J1055 Depo Provera 150 mg (Medroxyprogesterone) 12:44:46 CDT CPT-47035 Abx/Therapy Injection 12:44:46 CDT CPT-J1055 Depo Provera 150 mg (Medroxyprogesterone) 14:28:41 CDT CPT-J2930 Solu Medrol 125 mg (Methyl Prednisolone Sodium Succinate) 14:22:41 CDT CPT-81232 Administration single or combination vaccine inc oral 10 :08:06 CDT CPT-66077 Tdap 10:08:06 CDT CPT-G0402 Wl To Medicare Ex 22:17:30 CDT CPT-29936 Venipuncture Draw Fee 10:33:07 PIPE STRESS ENGINEER CPT-33339 Venipuncture Draw Fee 10:17:37 PIPE STRESS ENGINEER CPT-G0403 EKG [facility] To Medicare 22:17:30 CDT
--- OUTSIDE RECORDS SUMMARY | 2018-07-17 21:38 | XMS REPORT | Clinical Summary ---
Author Author Admin, ARIAN Organization [facility] Address Unknown Phone Unavailable Allergies, Adverse Reactions, [...] MULTIVITAMINS CAPS 1 tablet daily MULTIPLE VITAMIN 20082098998 Active Juan Smith MD Active CYCLOBENZAPRINE HCL 10 MG TABS 1/2 - 1 tab by mouth three times daily if needed for spasms/pain CYCLOBENZAPRINE HCL 94929904589 Active Ian Valdez MD Active GLUCOPHAGE 500 MG TABS 1 tab BID with morning and night meals METFORMIN HCL 09084944663 Active Eva Ferrara MD PhD Active PROGESTERONE MICRONIZED 100 MG CAPS 2 caps daily day 16 thru 25 of cycle 2013 PROGESTERONE MICRONIZED 98323766027 Active Eva Ferrara MD PhD Active TERBINAFINE HCL 1 % CREA Apply bid to rash TERBINAFINE HCL 35034949736 No Longer Active Eva Ferrara MD PhD Active TOPAMAX 25 MG TABS 1 tab po qhs x 1 week, then take 2 tabs po qhs TOPIRAMATE 95377445513 No Longer Active Thom Gilbert MD Active ULTRAM 50 MG TAB take 1 tab po q6hrs prn pain TRAMADOL HCL 25713996788 Active Ian Valdez MD Active LAMISIL AT 1 % CREA apply bid to rash TERBINAFINE HCL 71609458585 No Longer Active Thom Gilbert MD Active TERBINAFINE HCL 250 MG TABS 1 qDay TERBINAFINE HCL 51693838713 No Longer Active Ian Valdez MD Active XANAX 0.25 MG TABS take 1 tab po bid prn anxiety. ALPRAZOLAM 95748997463 No Longer Active Ian Valdez MD Active FISH OIL 1000 MG CAPS 2 caps PO once daily at bedtime OMEGA-3 FATTY ACIDS 73228791819 No Longer Active Ian Valdez MD Active KLOR-CON M20 20 MEQ CR-TABS take 1 tab po qday with lasix POTASSIUM CHLORIDE GALILEO CR 60545128693 Active Ian Valdez MD Active LASIX 20 MG TAB 1 tablet by mouth daily prn swelling FUROSEMIDE 81303596686 Active Ian Valdez MD Active FLONASE 50 MCG/ACT SUSP 2 puffs in each nostril once daily at bedtime FLUTICASONE PROPIONATE 03620532072 Active Ian Valedz MD Active CVS MELATONIN 3 MG TABS 2 tabs PO at bedtime MELATONIN 30998296462 Active Ian Valdez MD Active PULMICORT FLEXHALER 180 MCG/ACT AEPB 2 INH BID BUDESONIDE 89929782771 No Longer Active Ian Valdez MD Active METFORMIN HCL 500 MG TB24 1 TAB PO Q HS METFORMIN HCL 26936885174 No Longer Active Ian Valdez MD Active CYCLOBENZAPRINE HCL 10 MG TABS 1 PO q 8 hrs PRN muscle spasm 2012 CYCLOBENZAPRINE HCL 27725148871 No Longer Active Ian Valdez MD Active AZITHROMYCIN 500 MG TABS 1 PO q day x 6 days AZITHROMYCIN 66630188847 No Longer Active Ian Valdez MD Active CIPRO 500 MG TAB 1 tablet by mouth twice daily CIPROFLOXACIN HCL 18928455683 No Longer Active Ian Valdez MD Active PREDNISONE 20 MG TABS 3 qd x 2d, 2 qd x 2d, 1 qd x 2d, 1/2 qd x 2d PREDNISONE 19198043760 No Longer Active Law FIGUEROA Active CELEXA 40 MG TABS 2 PO DAILY CITALOPRAM HYDROBROMIDE 81933985647 Active Ian Valdez MD Active OMEPRAZOLE 20 MG CPDR 1 tablet by mouth daily OMEPRAZOLE 57103929896 No Longer Active [place] FIGUEROA Active KLONOPIN 0.5 MG TABS 1 TABLET PO PRN CLONAZEPAM 62817844040 No Longer Active [place] FIGUEROA Active MOBIC 7.5 MG TABS 1 tablet by mouthonce a day MELOXICAM 50099021192 No Longer Active [place] FIGUEROA Active ZITHROMAX 1 GM PACK DIRECTED AZITHROMYCIN 75589255198 No Longer Active Ian Valdez MD Active ALBUTEROL SULFATE 0.083 % NEBU SOLN one vial per nebulizer every 4-6 hours as needed ALBUTEROL SULFATE 41643970344 Active Ian Valdez MD Active CHANTIX STARTING MONTH REBEKAH 0.5 MG X 11 & 1 MG X 42 TABS 0.5mg daily for 3 days , then 0.5mg BID for 4 days, then 1mg BID VARENICLINE TARTRATE 64709428797 No Longer Active Ian Valdez MD Active ZITHROMAX 1 GM PACK DIRECTED AZITHROMYCIN 40334112463 No Longer Active Ian Valdez MD Active AURALGAN 1.4-5.5 % SOLN BENZOCAINE-ANTIPYRINE 89898711850 No Longer Active Ian Valdez MD Active PREDNISONE 20 MG TAB 3 tabs daily for 3 days, 2 tab daily for 3 days, 1 tab daily for 2 days, then 1/2 tab dialy for 2 days PREDNISONE 93726601771 No Longer Active Ian Valdez MD Active SIMVASTATIN 40 MG TABS 1 TABLET PO Q HS SIMVASTATIN 86284098789 Active Ian Valdez MD Active SIMVASTATIN 80 MG TABS Take one by mouth daily SIMVASTATIN 54793416829 No Longer Active Ian Valdez MD Active PREDNISONE 20 MG TAB 2 tabs daily for 3 days, 1 tab daily for 3 days, 1/2 tab daily for 2 days PREDNISONE 55698234619 No Longer Active Ian Valdez MD Active ZITHROMAX 250 MG TAB 2 po today, then 1 po q days 2-5 AZITHROMYCIN 82308421527 No Longer Active Ian Valdez MD Active TRAZODONE HCL 100 MG TABS 2 TABS PO Q HS TRAZODONE HCL 37708571262 Active Ian Valdez MD Active ZITHROMAX 250 MG TAB 2 po today, then 1 po q days 2-5 AZITHROMYCIN 95088258796 No Longer Active Ian Valdez MD Active SIMVASTATIN 80 MG TABS Take one by mouth daily SIMVASTATIN 80 MG TABS 383294 SIMVASTATIN Inactive AURALGAN 1.4-5.5 % SOLN AURALGAN 1.4-5.5 % SOLN BENZOCAINE-ANTIPYRINE Inactive ZITHROMAX 1 GM PACK DIRECTED ZITHROMAX 1 GM PACK 576184 AZITHROMYCIN Inactive CHANTIX STARTING MONTH REBEKAH 0.5 MG X 11 & 1 MG X 42 TABS 0.5mg daily for 3 days , then 0.5mg BID for 4 days, then 1mg BID CHANTIX STARTING MONTH REBEKAH 0.5 MG X 11 & 1 MG X 42 TABS VARENICLINE TARTRATE Inactive ZITHROMAX 1 GM PACK DIRECTED ZITHROMAX 1 GM PACK 228895 AZITHROMYCIN Inactive MOBIC 7.5 MG TABS 1 tablet by mouthonce a day MOBIC 7.5 MG TABS 376025 MELOXICAM Inactive KLONOPIN 0.5 MG TABS 1 TABLET PO PRN KLONOPIN 0.5 MG TABS 242463 CLONAZEPAM Inactive CIPRO 500 MG TAB 1 tablet by mouth twice daily CIPRO 500 MG TAB 904092 CIPROFLOXACIN HCL Inactive AZITHROMYCIN 500 MG TABS 1 PO q day x 6 days AZITHROMYCIN 500 MG TABS 7043993 AZITHROMYCIN Inactive CYCLOBENZAPRINE HCL 10 MG TABS 1 PO q 8 hrs PRN muscle spasm 2012 CYCLOBENZAPRINE HCL 10 MG TABS 583656 CYCLOBENZAPRINE HCL Inactive METFORMIN HCL 500 MG [...] bid prn anxiety. XANAX 0.25 MG TABS 929677 ALPRAZOLAM Inactive LAMISIL AT 1 % CREA apply bid to rash LAMISIL AT 1 % CREA 217497 TERBINAFINE HCL Inactive TOPAMAX 25 MG TABS 1 tab po qhs x 1 week, then take 2 tabs po qhs TOPAMAX 25 MG TABS 070429 TOPIRAMATE Inactive TERBINAFINE HCL 1 % CREA Apply bid to rash TERBINAFINE HCL 1 % CREA 395359 TERBINAFINE HCL Inactive ZITHROMAX 250 MG TAB 2 po today, then 1 po q days 2-5 ZITHROMAX 250 MG TAB 2433416 AZITHROMYCIN Inactive ZITHROMAX 250 MG TAB 2 po today, then 1 po q days 2-5 ZITHROMAX 250 MG TAB 4911617 AZITHROMYCIN Inactive PREDNISONE 20 MG TAB 2 tabs daily for 3 days, 1 tab daily for 3 days, 1/2 tab daily for 2 days PREDNISONE 20 MG TAB 012852 PREDNISONE Inactive PREDNISONE 20 MG TAB 3 tabs daily for 3 days, 2 tab daily for 3 days, 1 tab daily for 2 days, then 1/2 tab dialy for 2 days PREDNISONE 20 MG TAB 060446 PREDNISONE Inactive OMEPRAZOLE 20 MG CPDR 1 tablet by mouth daily OMEPRAZOLE 20 MG CPDR 322740 OMEPRAZOLE Inactive PREDNISONE 20 MG TABS 3 qd x 2d, 2 qd x 2d, 1 qd x 2d, 1/2 qd x 2d PREDNISONE 20 MG TABS 475625 PREDNISONE Inactive TERBINAFINE HCL 250 MG TABS 1 qDay TERBINAFINE HCL 250 MG TABS 666248 TERBINAFINE HCL Inactive Advance Directives Directive Description Start Date NO HEROIC MEASURES Immunizations Vaccine Administration Date Value Standard Description Boostrix (Tetanus toxoid, reduced diphtheria toxoid and acellular pertussis vaccine, adsorbed), booster Boostrix [[id number]] tetanus toxoid, reduced diphtheria toxoid, and acellular [...] 5.3 % 4.3-6.0 sodium, serum 139 mmol/L 028-615 3793/02/24 potassium, serum 4.4 mmol/L 3.5-5.2 chloride, serum [...] 1.44 m[iU]/mL 0.36-3.74 cholesterol, serum 144 mg/dL 341-193 9432/11/19 triglyceride, serum, fasting 172 mg/dL 30-200 HDL cholesterol, serum 30 mg/dL 32-96 LDL cholesterol, serum 80 mg/dL 0-130 sodium, serum 137 mmol/L 604-318 6670/11/19 potassium, serum 4.1 mmol/L 3.5-5.2 chloride, serum [...] Panel - Chemistry cholesterol, serum 118 mg/dL 268-596 5567/02/24 triglyceride, serum, fasting 141 mg/dL 30-200 HDL cholesterol, serum 20 mg/dL 32-96 LDL cholesterol, serum 70 mg/dL 0-130 Office Visit: Consult infertility - Chemistry human chorionic gonadotropin, urine, qualitative (urine test) Negative Encounters Code Encounter Date Provider Facility CPT-12279 Level 3 Est. Patient 15:32:41 MARKETING BUSINESS ANALYST Juan Smith MD [facility] CPT-69272 Level 3 Est. Patient 14:45:01 CDT Eva Ferrara MD PhD [facility] CPT-39616 Level 3 Est. Patient 14:54:10 CDT Ian Valdez MD [facility] [place] Level 4 Est. Patient 20:36:52 CDT Ian Valdez MD [facility] [place]-50365 Level 4 Est. Patient 11:14:30 MARKETING BUSINESS ANALYST Ian Valdez MD [facility] [place]-46360 Level 3 Est. Patient 19:08:34 MARKETING BUSINESS ANALYST Ian Valdez MD [facility] [place]-59715 Level 3 Est. Patient 13:17:39 MARKETING BUSINESS ANALYST Ian Valdez MD [facility] [place]-04340 Level 4 Est. Patient 18:56:10 CDT Ian Valdez MD [facility] [place]-24350 Level 4 Est. Patient 16:55:56 CDT Ian Valdez MD [facility] [place]-64360 Level 3 Est. Patient 11:27:07 CDT Ian Valdez MD [facility] [place]-97380 Level 3 Est. Patient 15:17:44 CDT Law Rosas [facility]-44137 Level 4 Est. Patient 15:13:53 CDT Wellington Muniz [facility]-57089 Level 3 Est. Patient 14:25:12 MARKETING BUSINESS ANALYST Ian Valdez MD [facility] [place]-39901 Level 3 Est. Patient 10:24:46 CDT Ian Valdez MD [facility] [place]-93621 Level 3 Est. Patient 15:34:19 CDT Ian Valdez MD [facility] [place]-50047 Level 3 Est. Patient 14:22:41 CDT Ian Valdez MD [facility] [place]-51959 Level 3 Est. Patient 15:07:22 MARKETING BUSINESS ANALYST Ian Valdez MD [facility] CPT-67563 Level 3 New Patient 09:06:43 MARKETING BUSINESS ANALYST Ian Valdez MD [facility] CPT-44230 Level 3 Est. Patient 15:09:00 MARKETING BUSINESS ANALYST Ian Valdez MD [facility] Procedures Code Procedure Name Date Entry Date Standard Description CPT-OV Office Visit 15:49:26 MARKETING BUSINESS ANALYST CPT-J1885 Toradol 60 mg (Ketorolac) 15:37:32 CDT CPT-91820 Abx/Therapy Injection 15:37:32 CDT CPT-J1885 Toradol 60 mg (Ketorolac) 14:45:01 CDT CPT-OV Office Visit 15:19:52 CDT CPT-OV Office Visit 10:41:01 CDT CPT-58624 Core biop breast wo imaging 16:50:06 CDT CPT-OV Office Visit 16:50:05 CDT CPT-46634 UHCG (floor use only) 13:39:36 CDT CPT-34843 Nexplanon Placement 10:11:48 CDT CPT-J7307 Nexplanon (Implant) 10:11:48 CDT CPT-OV Office Visit 09:54:18 CDT CPT-73529 EKG Trac and Interp 16:50:19 CDT CPT-15557 Venipuncture Draw Fee 15:06:08 CDT CPT-J2930 Solu Medrol 125 mg (Methyl Prednisolone Sodium Succinate) 12:44:46 CDT CPT-J1055 Depo Provera 150 mg (Medroxyprogesterone) 12:44:46 CDT CPT-48331 Abx/Therapy Injection 12:44:46 CDT CPT-J1055 Depo Provera 150 mg (Medroxyprogesterone) 14:28:41 CDT CPT-J2930 Solu Medrol 125 mg (Methyl Prednisolone Sodium Succinate) 14:22:41 CDT CPT-69820 Administration single or combination vaccine inc oral 10 :08:06 CDT CPT-68544 Tdap 10:08:06 CDT CPT-G0402 Wlcm To Medicare Ex 22:17:30 CDT CPT-89912 Venipuncture Draw Fee 10:33:07 MARKETING BUSINESS ANALYST CPT-01507 Venipuncture Draw Fee 10:17:37 MARKETING BUSINESS ANALYST CPT-G0403 EKG Wl To Medicare 22:17:30 CDT
--- OUTSIDE RECORDS SUMMARY | 2018-07-17 21:39 | XMS REPORT | Clinical Summary ---
Author Author Admin, ARIAN Organization [facility] Address Unknown Phone Allergies, Adverse [...] CREA apply bid to rash TERBINAFINE HCL 85333941876 Active Ian Valdez MD Active TERBINAFINE HCL 250 MG TABS 1 qDay TERBINAFINE HCL 86930503363 No Longer Active Ian Valdez MD Active TOPAMAX 25 MG TABS 1 tab po qhs x 1 week, then take 2 tabs po qhs TOPIRAMATE 69426897907 Active Ian Valdez MD Active XANAX 0.25 MG TABS take 1 tab po bid prn anxiety. ALPRAZOLAM 02630120095 No Longer Active Ian Valdez MD Active FISH OIL 1000 MG CAPS 2 caps PO once daily at bedtime OMEGA-3 FATTY ACIDS 59946238343 No Longer Active Ian Valdez MD Active KLOR-CON M20 20 MEQ CR-TABS take 1 tab po qday with lasix POTASSIUM CHLORIDE GALILEO CR 81755971476 Active Ian Valdez MD Active LASIX 20 MG TAB 1 tablet by mouth daily prn swelling FUROSEMIDE 35950805469 Active Ian Valdez MD Active FLONASE 50 MCG/ACT SUSP 2 puffs in each nostril once daily at bedtime FLUTICASONE PROPIONATE 73750538496 Active Ian Valdez MD Active [facility]S MELATONIN 3 MG TABS 2 tabs PO at bedtime MELATONIN 43397267079 Active Ian Valdez MD Active PULMICORT FLEXHALER 180 MCG/ACT AEPB 2 INH BID BUDESONIDE 31342139569 No Longer Active Ian Valdez MD Active METFORMIN HCL 500 MG TB24 1 TAB PO Q HS METFORMIN HCL 79760343608 No Longer Active Ian Valdez MD Active CYCLOBENZAPRINE HCL 10 MG TABS 1 PO q 8 hrs PRN muscle spasm 2012 CYCLOBENZAPRINE HCL 02271733633 No Longer Active Ian Valdez MD Active AZITHROMYCIN 500 MG TABS 1 PO q day x 6 days AZITHROMYCIN 54725748030 No Longer Active Ian Valdez MD Active CIPRO 500 MG TAB 1 tablet by mouth twice daily CIPROFLOXACIN HCL 12204319961 No Longer Active Ian Valdez MD Active PREDNISONE 20 MG TABS 3 qd x 2d, 2 qd x 2d, 1 qd x 2d, 1/2 qd x 2d PREDNISONE 61161924663 No Longer Active Law FIGUEROA Active CELEXA 40 MG TABS 2 PO DAILY CITALOPRAM HYDROBROMIDE 91782878068 Active Ian Valdez MD Active OMEPRAZOLE 20 MG CPDR 1 tablet by mouth daily OMEPRAZOLE 82201410414 No Longer Active [place] FIGUEROA Active KLONOPIN 0.5 MG TABS 1 TABLET PO PRN CLONAZEPAM 51935285270 No Longer Active [place] FIGUEROA Active MOBIC 7.5 MG TABS 1 tablet by mouthonce a day MELOXICAM 08983525182 No Longer Active [place] FIGUEROA Active ZITHROMAX 1 GM PACK DIRECTED AZITHROMYCIN 65187305037 No Longer Active Ian Valdez MD Active ALBUTEROL SULFATE 0.083 % NEBU SOLN one vial per nebulizer every 4-6 hours as needed ALBUTEROL SULFATE 63883197399 Active Ian Valdez MD Active CHANTIX STARTING MONTH REBEKAH 0.5 MG X 11 & 1 MG X 42 TABS 0.5mg daily for 3 days , then 0.5mg BID for 4 days, then 1mg BID VARENICLINE TARTRATE 59291252012 No Longer Active Ian Valdez MD Active ZITHROMAX 1 GM PACK DIRECTED AZITHROMYCIN 48334299377 No Longer Active Ian Valdez MD Active AURALGAN 1.4-5.5 % SOLN BENZOCAINE-ANTIPYRINE 21171969276 No Longer Active Ian Valdez MD Active PREDNISONE 20 MG TAB 3 tabs daily for 3 days, 2 tab daily for 3 days, 1 tab daily for 2 days, then 1/2 tab dialy for 2 days PREDNISONE 78365194298 No Longer Active Ian Valdez MD Active SIMVASTATIN 40 MG TABS 1 TABLET PO Q HS SIMVASTATIN 37466084805 Active Ian Valdez MD Active SIMVASTATIN 80 MG TABS Take one by mouth daily SIMVASTATIN 73181156596 No Longer Active Ian Valdez MD Active PREDNISONE 20 MG TAB 2 tabs daily for 3 days, 1 tab daily for 3 days, 1/2 tab daily for 2 days PREDNISONE 61805900339 No Longer Active Ian Valdez MD Active ZITHROMAX 250 MG TAB 2 po today, then 1 po q days 2-5 AZITHROMYCIN 33265394414 No Longer Active Ian Valdez MD Active TRAZODONE HCL 100 MG TABS 2 TABS PO Q HS TRAZODONE HCL 71677165543 Active Ian Valdez MD Active ZITHROMAX 250 MG TAB 2 po today, then 1 po q days 2-5 AZITHROMYCIN 39389048550 No Longer Active Ian Valdez MD Active SIMVASTATIN 80 MG TABS Take one by mouth daily SIMVASTATIN 80 MG TABS 959570 SIMVASTATIN Inactive AURALGAN 1.4-5.5 % SOLN AURALGAN 1.4-5.5 % SOLN 5665717 BENZOCAINE-ANTIPYRINE Inactive ZITHROMAX 1 GM PACK DIRECTED ZITHROMAX 1 GM PACK 843657 AZITHROMYCIN Inactive CHANTIX STARTING MONTH REBEKAH 0.5 MG X 11 & 1 MG X 42 TABS 0.5mg daily for 3 days , then 0.5mg BID for 4 days, then 1mg BID CHANTIX STARTING MONTH REBEKAH 0.5 MG X 11 & 1 MG X 42 TABS VARENICLINE TARTRATE Inactive ZITHROMAX 1 GM PACK DIRECTED ZITHROMAX 1 GM PACK 673797 AZITHROMYCIN Inactive MOBIC 7.5 MG TABS 1 tablet by mouthonce a day MOBIC 7.5 MG TABS 770151 MELOXICAM Inactive KLONOPIN 0.5 MG TABS 1 TABLET PO PRN KLONOPIN 0.5 MG TABS 103882 CLONAZEPAM Inactive CIPRO 500 MG TAB 1 tablet by mouth twice daily CIPRO 500 MG TAB 494765 CIPROFLOXACIN HCL Inactive AZITHROMYCIN 500 MG TABS 1 PO q day x 6 days AZITHROMYCIN 500 MG TABS 8788571 AZITHROMYCIN Inactive CYCLOBENZAPRINE HCL 10 MG TABS 1 PO q 8 hrs PRN muscle spasm 2012 CYCLOBENZAPRINE HCL 10 MG TABS 831135 CYCLOBENZAPRINE HCL Inactive METFORMIN HCL 500 MG [...] bid prn anxiety. XANAX 0.25 MG TABS 561770 ALPRAZOLAM Inactive ZITHROMAX 250 MG TAB 2 po today, then 1 po q days 2-5 ZITHROMAX 250 MG TAB 2811186 AZITHROMYCIN Inactive ZITHROMAX 250 MG TAB 2 po today, then 1 po q days 2-5 ZITHROMAX 250 MG TAB 2183622 AZITHROMYCIN Inactive PREDNISONE 20 MG TAB 2 tabs daily for 3 days, 1 tab daily for 3 days, 1/2 tab daily for 2 days PREDNISONE 20 MG TAB 002226 PREDNISONE Inactive PREDNISONE 20 MG TAB 3 tabs daily for 3 days, 2 tab daily for 3 days, 1 tab daily for 2 days, then 1/2 tab dialy for 2 days PREDNISONE 20 MG TAB 762761 PREDNISONE Inactive OMEPRAZOLE 20 MG CPDR 1 tablet by mouth daily OMEPRAZOLE 20 MG CPDR 781449 OMEPRAZOLE Inactive PREDNISONE 20 MG TABS 3 qd x 2d, 2 qd x 2d, 1 qd x 2d, 1/2 qd x 2d PREDNISONE 20 MG TABS 244473 PREDNISONE Inactive TERBINAFINE HCL 250 MG TABS 1 qDay TERBINAFINE HCL 250 MG TABS 730521 TERBINAFINE HCL Inactive Advance Directives Directive Description Start Date NO HEROIC MEASURES Immunizations Vaccine Administration Date Value Standard Description Combined [id number]-zipdtwrpg Pertussis (dTpa) Vaccine - Booster 07/05 Boostrix [[id number]] tetanus toxoid, reduced diphtheria toxoid, and acellular [...] Lab Report: Basic Metabolic Panel - Chemistry calcium, serum 8.5 mg/dL 8.5-10.1 urea nitrogen, blood 7 mg/dL 7-18 creatinine, serum 0.80 mg/dL 0.60-1.30 blood glucose 85 mg/dL 65-110 carbon dioxide, venous blood 27.3 mmol/L 21.0-32.0 chloride, serum 102 mmol/L 98-107 potassium, serum 3.7 mmol/L 3.5-5.2 sodium, serum 137 mmol/L 136-145 Lab Report: CBC, HGBA1C, Comp. Metabolic Panel - Chemistry hemoglobin A1C, blood, as % of total hemoglobin 5.3 % 4.3-6.0 sodium, serum 139 mmol/L 784-804 3597/02/24 potassium, serum 4.4 mmol/L 3.5-5.2 chloride, serum [...] Panel - Chemistry cholesterol, serum 118 mg/dL 645-007 0090/02/24 triglyceride, serum, fasting 141 mg/dL 30-200 HDL cholesterol, serum 20 mg/dL 32-96 LDL cholesterol, serum 70 mg/dL 0-130 Lab Report: Lipid Panel, Comp. Metabolic Panel, MICROALBUMIN, HGBA1C - Chemistry albumin/creatinine ratio, urine < 30 mg/g mg/g{creat} 0-29 hemoglobin A1C, blood, as % of total hemoglobin 5.3 % 4.3-6.0 triglyceride, serum, fasting 267 mg/dL 30-200 HDL cholesterol, serum 22 mg/dL 32-96 LDL cholesterol, serum 97 mg/dL 0-130 sodium, serum 141 mmol/L 882-511 0606/08/16 potassium, serum 4.2 mmol/L 3.5-5.2 cholesterol, serum 172 mg/dL 302-829 2410/08/16 chloride, serum 104 mmol/L 98-107 carbon dioxide, venous blood 30.1 mmol/L 21.0-32.0 blood glucose 111 mg/dL 65-110 urea nitrogen, blood 9 mg/dL 7-18 creatinine, serum 0.80 mg/dL 0.60-1.30 alanine aminotransferase (SGPT), serum 25 U/L 12-78 aspartate aminotransferase (SGOT), serum 14 U/L 15-37 alkaline phosphatase, serum 91 U/L 50-136 calcium, serum 9.2 mg/dL 8.5-10.1 bilirubin, serum, total 0.32 mg/dL 0.00-1.00 Lab Report: Lipid Panel, Comp. Metabolic Panel, MICROALBUMIN, HGBA1C - Lab microalbumin, urine 10 0-19 Office Visit: Consult infertility - Chemistry human chorionic gonadotropin, urine, qualitative (urine test) Negative Encounters Code Encounter Date Provider Facility CPT-38827 Level 3 Est. Patient 14:54:10 CDT Ian Valdez MD [facility] CPT-47049 Level 4 Est. Patient 20:36:52 CDT Ian Valdez MD [facility] CPT-64506 Level 4 Est. Patient 11:14:30 MASS SPECTROSCOPIST Ian Valdez MD [facility] CPT-45579 Level 3 Est. Patient 19:08:34 MASS SPECTROSCOPIST Ian Valdez MD [facility] CPT-05708 Level 3 Est. Patient 13:17:39 MASS SPECTROSCOPIST Ian Valdez MD [facility] CPT-46611 Level 4 Est. Patient 18:56:10 CDT Ian Valdez MD [facility] CPT-11556 Level 4 Est. Patient 16:55:56 CDT Ian Valdez MD [facility] CPT-16982 Level 3 Est. Patient 11:27:07 CDT Ian Valdez MD [facility] CPT-31682 Level 3 Est. Patient 15:17:44 CDT Law Rosas [facility] CPT-30288 Level 4 Est. Patient 15:13:53 CDT Wellington Muniz PA [facility] CPT-69538 Level 3 Est. Patient 14:25:12 MASS SPECTROSCOPIST Ian Valdez MD [facility] CPT-25021 Level 3 Est. Patient 10:24:46 CDT Ian Valdez MD [facility] CPT-99034 Level 3 Est. Patient 15:34:19 CDT Ian Valdez MD [facility] CPT-65166 Level 3 Est. Patient 14:22:41 CDT Ian Valdez MD [facility] CPT-69454 Level 3 Est. Patient 15:07:22 MASS SPECTROSCOPIST Ian Valdez MD [facility] CPT-13964 Level 3 New Patient 09:06:43 MASS SPECTROSCOPIST Ian Valdez MD [facility] CPT-86886 Level 3 Est. Patient 15:09:00 MASS SPECTROSCOPIST Ian Valdez MD [facility] Procedures Code Procedure Name Date Entry Date Standard Description CPT-08545 UHCG (floor use only) 13:39:36 CDT CPT-45248 Nexplanon Placement 10:11:48 CDT CPT-J7307 Nexplanon (Implant) 10:11:48 CDT CPT-OV Office Visit 09:54:18 CDT CPT-58858 EKG Trac and Interp 16:50:19 CDT CPT-31338 Venipuncture Draw Fee 15:06:08 CDT CPT-J2930 Solu Medrol 125 mg (Methyl Prednisolone Sodium Succinate) 12:44:46 CDT CPT-J1055 Depo Provera 150 mg (Medroxyprogesterone) 12:44:46 CDT CPT-71066 Abx/Therapy Injection 12:44:46 CDT CPT-J1055 Depo Provera 150 mg (Medroxyprogesterone) 14:28:41 CDT CPT-J2930 Solu Medrol 125 mg (Methyl Prednisolone Sodium Succinate) 14:22:41 CDT CPT-53900 Administration single or combination vaccine inc oral 10 :08:06 CDT CPT-94702 Tdap 10:08:06 CDT CPT-G0402 Wlcm To Medicare Ex 22:17:30 CDT CPT-25789 Venipuncture Draw Fee 10:33:07 MASS SPECTROSCOPIST CPT-58162 Venipuncture Draw Fee 10:17:37 MASS SPECTROSCOPIST CPT-G0403 EKG [facility] To Medicare 22:17:30 CDT
--- OUTSIDE RECORDS SUMMARY | 2018-07-17 21:40 | XMS REPORT | Clinical Summary ---
[...] 787.20 Active Thom Gilbert MD Dysphagia, unspecified Neck pain 723.1 Active Eva Ferrara MD PhD Cervicalgia Sinusitis, frontal, acute 461.1 Active Eva Ferrara MD PhD Acute frontal sinusitis SINUSITIS ICD-473.9 Inactive Ian Valdez MD SCABIES [...] Gilbert MD Ankle sprain, left ICD-845.00 Inactive Ina Valdez MD Chronic pain ICD-338.29 Inactive Thom Gilbert MD Unspecified procreative management ICD-V26.9 Inactive Thom Gilbert MD Tinea cruris ICD-110.3 Inactive Thom Gilbert MD Breast mass, right ICD-611.72 Inactive Thom Gilbert MD Wound infection ICD-958.3 Inactive Thom Gilbert MD Medication List Medication Instructions Start Date Stop Date Generic Name NDC Status Provider Patient Instruction CYCLOBENZAPRINE HCL 10 MG TABS 1/2 - 1 tab by mouth three times daily if needed for spasms/pain CYCLOBENZAPRINE HCL 72154405428 Active Eva Ferrara MD PhD Active GLUCOPHAGE 500 MG TABS 1 tab BID with morning and night meals METFORMIN HCL 24544072779 Active Eva Ferrara MD PhD Active PROGESTERONE MICRONIZED 100 MG CAPS 2 caps daily day 16 thru 25 of cycle 2013 PROGESTERONE MICRONIZED 62021228558 Active Eva Ferrara MD PhD Active TERBINAFINE HCL 1 % CREA Apply bid to rash TERBINAFINE HCL 14849750576 No Longer Active Eva Ferrara MD PhD Active TOPAMAX 25 MG TABS 1 tab po qhs x 1 week, then take 2 tabs po qhs TOPIRAMATE 71966735023 No Longer Active Thom Gilbert MD Active ULTRAM 50 MG TAB take 1 tab po q6hrs prn pain TRAMADOL HCL 35734317577 Active Ian Valdez MD Active LAMISIL AT 1 % CREA apply bid to rash TERBINAFINE HCL 93102066495 No Longer Active Thom Gilbert MD Active TERBINAFINE HCL 250 MG TABS 1 qDay TERBINAFINE HCL 12270176912 No Longer Active Ian Valdez MD Active XANAX 0.25 MG TABS take 1 tab po bid prn anxiety. ALPRAZOLAM 93298094683 No Longer Active Ian Valdez MD Active FISH OIL 1000 MG CAPS 2 caps PO once daily at bedtime OMEGA-3 FATTY ACIDS 28568313246 No Longer Active Ian Valdez MD Active KLOR-CON M20 20 MEQ CR-TABS take 1 tab po qday with lasix POTASSIUM CHLORIDE GALILEO CR 98118297693 Active Ian Valdez MD Active LASIX 20 MG TAB 1 tablet by mouth daily prn swelling FUROSEMIDE 70391940800 Active Ian Valdez MD Active FLONASE 50 MCG/ACT SUSP 2 puffs in each nostril once daily at bedtime FLUTICASONE PROPIONATE 54632037276 Active Ian Valdez MD Active CVS MELATONIN 3 MG TABS 2 tabs PO at bedtime MELATONIN 27498655264 Active Ian Valdez MD Active PULMICORT FLEXHALER 180 MCG/ACT AEPB 2 INH BID BUDESONIDE 77000417242 No Longer Active Ian Valdez MD Active METFORMIN HCL 500 MG TB24 1 TAB PO Q HS METFORMIN HCL 97140199092 No Longer Active Ian Valdez MD Active CYCLOBENZAPRINE HCL 10 MG TABS 1 PO q 8 hrs PRN muscle spasm 2012 CYCLOBENZAPRINE HCL 50972837432 No Longer Active Ian Valdez MD Active AZITHROMYCIN 500 MG TABS 1 PO q day x 6 days AZITHROMYCIN 10308790712 No Longer Active Ian Valdez MD Active CIPRO 500 MG TAB 1 tablet by mouth twice daily CIPROFLOXACIN HCL 00086803206 No Longer Active Ian Valdez MD Active PREDNISONE 20 MG TABS 3 qd x 2d, 2 qd x 2d, 1 qd x 2d, 1/2 qd x 2d PREDNISONE 65106564247 No Longer Active Law FIGUEROA Active CELEXA 40 MG TABS 2 PO DAILY CITALOPRAM HYDROBROMIDE 03759972192 Active Ian Valdez MD Active OMEPRAZOLE 20 MG CPDR 1 tablet by mouth daily OMEPRAZOLE 95847177150 No Longer Active [place] FIGEUROA Active KLONOPIN 0.5 MG TABS 1 TABLET PO PRN CLONAZEPAM 73719470503 No Longer Active [place] FIGUEROA Active MOBIC 7.5 MG TABS 1 tablet by mouthonce a day MELOXICAM 20671972776 No Longer Active [place] FIGUEROA Active ZITHROMAX 1 GM PACK DIRECTED AZITHROMYCIN 65688466903 No Longer Active Ian Valdez MD Active ALBUTEROL SULFATE 0.083 % NEBU SOLJeanette one vial per nebulizer every 4-6 hours as needed ALBUTEROL SULFATE 05445556580 Active Ian Valdez MD Active CHANTIX STARTING MONTH REBEKAH 0.5 MG X 11 & 1 MG X 42 TABS 0.5mg daily for 3 days , then 0.5mg BID for 4 days, then 1mg BID VARENICLINE TARTRATE 34580740572 No Longer Active Ian Valdez MD Active ZITHROMAX 1 GM PACK DIRECTED AZITHROMYCIN 88789306042 No Longer Active Ian Valdez MD Active AURALGAN 1.4-5.5 % SOLN BENZOCAINE-ANTIPYRINE 88720017024 No Longer Active Ian Valdez MD Active PREDNISONE 20 MG TAB 3 tabs daily for 3 days, 2 tab daily for 3 days, 1 tab daily for 2 days, then 1/2 tab dialy for 2 days PREDNISONE 55143109090 No Longer Active Ian Valdez MD Active SIMVASTATIN 40 MG TABS 1 TABLET PO Q HS SIMVASTATIN 10237415146 Active Ian Valdez MD Active SIMVASTATIN 80 MG TABS Take one by mouth daily SIMVASTATIN 33522655435 No Longer Active Ian Valdez MD Active PREDNISONE 20 MG TAB 2 tabs daily for 3 days, 1 tab daily for 3 days, 1/2 tab daily for 2 days PREDNISONE 29127743568 No Longer Active Ian Valdez MD Active ZITHROMAX 250 MG TAB 2 po today, then 1 po q days 2-5 AZITHROMYCIN 19793474983 No Longer Active Ian Valdez MD Active TRAZODONE HCL 100 MG TABS 2 TABS PO Q HS TRAZODONE HCL 67062353283 Active Ian Valdez MD Active ZITHROMAX 250 MG TAB 2 po today, then 1 po q days 2-5 AZITHROMYCIN 46936999268 No Longer Active Ian Valdez MD Active SIMVASTATIN 80 MG TABS Take one by mouth daily SIMVASTATIN 80 MG TABS 534762 SIMVASTATIN Inactive AURALGAN 1.4-5.5 % SOLN AURALGAN 1.4-5.5 % SOLN BENZOCAINE-ANTIPYRINE Inactive ZITHROMAX 1 GM PACK DIRECTED ZITHROMAX 1 GM PACK 887649 AZITHROMYCIN Inactive CHANTIX STARTING MONTH REBEKAH 0.5 MG X 11 & 1 MG X 42 TABS 0.5mg daily for 3 days , then 0.5mg BID for 4 days, then 1mg BID CHANTIX STARTING MONTH REBEKAH 0.5 MG X 11 & 1 MG X 42 TABS VARENICLINE TARTRATE Inactive ZITHROMAX 1 GM PACK DIRECTED ZITHROMAX 1 GM PACK 273677 AZITHROMYCIN Inactive MOBIC 7.5 MG TABS 1 tablet by mouthonce a day MOBIC 7.5 MG TABS 426053 MELOXICAM Inactive KLONOPIN 0.5 MG TABS 1 TABLET PO PRN KLONOPIN 0.5 MG TABS 674947 CLONAZEPAM Inactive CIPRO 500 MG TAB 1 tablet by mouth twice daily CIPRO 500 MG TAB 352243 CIPROFLOXACIN HCL Inactive AZITHROMYCIN 500 MG TABS 1 PO q day x 6 days AZITHROMYCIN 500 MG TABS 4146423 AZITHROMYCIN Inactive CYCLOBENZAPRINE HCL 10 MG TABS 1 PO q 8 hrs PRN muscle spasm 2012 CYCLOBENZAPRINE HCL 10 MG TABS 783392 CYCLOBENZAPRINE HCL Inactive METFORMIN HCL 500 MG [...] bid prn anxiety. XANAX 0.25 MG TABS 032737 ALPRAZOLAM Inactive LAMISIL AT 1 % CREA apply bid to rash LAMISIL AT 1 % CREA 427880 TERBINAFINE HCL Inactive TOPAMAX 25 MG TABS 1 tab po qhs x 1 week, then take 2 tabs po qhs TOPAMAX 25 MG TABS 403854 TOPIRAMATE Inactive TERBINAFINE HCL 1 % CREA Apply bid to rash TERBINAFINE HCL 1 % CREA 384476 TERBINAFINE HCL Inactive ZITHROMAX 250 MG TAB 2 po today, then 1 po q days 2-5 ZITHROMAX 250 MG TAB 3397338 AZITHROMYCIN Inactive ZITHROMAX 250 MG TAB 2 po today, then 1 po q days 2-5 ZITHROMAX 250 MG TAB 0953030 AZITHROMYCIN Inactive PREDNISONE 20 MG TAB 2 tabs daily for 3 days, 1 tab daily for 3 days, 1/2 tab daily for 2 days PREDNISONE 20 MG TAB 435749 PREDNISONE Inactive PREDNISONE 20 MG TAB 3 tabs daily for 3 days, 2 tab daily for 3 days, 1 tab daily for 2 days, then 1/2 tab dialy for 2 days PREDNISONE 20 MG TAB 409135 PREDNISONE Inactive OMEPRAZOLE 20 MG CPDR 1 tablet by mouth daily OMEPRAZOLE 20 MG CPDR 148313 OMEPRAZOLE Inactive PREDNISONE 20 MG TABS 3 qd x 2d, 2 qd x 2d, 1 qd x 2d, 1/2 qd x 2d PREDNISONE 20 MG TABS 947009 PREDNISONE Inactive TERBINAFINE HCL 250 MG TABS 1 qDay TERBINAFINE HCL 250 MG TABS 795131 TERBINAFINE HCL Inactive Advance Directives Directive Description Start Date NO HEROIC MEASURES Immunizations Vaccine Administration Date Value Standard Description Combined Akmliwrtpy-Kzpwgyg-gwivwpqvy Pertussis (dTpa) Vaccine - Booster 07/05 Boostrix [[id number]] tetanus toxoid, reduced diphtheria toxoid, and acellular pertussis vaccine, adsorbed Vital Signs Date Name Value Unit Range Description blood pressure, diastolic 87 mm[Hg] BP aguillon blood pressure, systolic 128 mm[Hg] BP sys pulse rate E&M 102 /min Heart rate temperature E&M 99.3 [degF] Body temperature weight E&M 215 [lb_av] Weight Measured blood pressure, diastolic 85 mm[Hg] BP aguillon [...] temperature weight E&M 226.38 [lb_av] Weight Measured Diagnostic Results Date Name Value Unit Range Description Lab Report: CBC, HGBA1C, Comp. Metabolic Panel - Chemistry hemoglobin A1C, blood, as % of total hemoglobin 5.3 % 4.3-6.0 sodium, serum 139 mmol/L 827-889 4322/02/24 potassium, serum 4.4 mmol/L 3.5-5.2 chloride, serum [...] Panel - Chemistry cholesterol, serum 118 mg/dL 974-026 3458/02/24 triglyceride, serum, fasting 141 mg/dL 30-200 HDL cholesterol, serum 20 mg/dL 32-96 LDL cholesterol, serum 70 mg/dL 0-130 Office Visit: Consult infertility - Chemistry human chorionic gonadotropin, urine, qualitative (urine test) Negative Encounters Code Encounter Date Provider Facility CPT-52133 Level 3 Est. Patient 14:45:01 CDT Eva Ferrara MD PhD [facility] CPT-08185 Level 3 Est. Patient 14:54:10 CDT Ian Valdez MD [facility] CPT-39868 Level 4 Est. Patient 20:36:52 CDT Ian Valdez MD [facility] CPT-67797 Level 4 Est. Patient 11:14:30 BELLPERSON Ian Valdez MD [facility] CPT-76827 Level 3 Est. Patient 19:08:34 BELLPERSON Ian Valdez MD [facility] CPT-05065 Level 3 Est. Patient 13:17:39 BELLPERSON Ian Valdez MD [facility] CPT-84618 Level 4 Est. Patient 18:56:10 CDT Ian Valdez MD [facility] CPT-10164 Level 4 Est. Patient 16:55:56 CDT Ian Valdez MD [facility] CPT-45324 Level 3 Est. Patient 11:27:07 CDT Ian Valdez MD [facility] CPT-00802 Level 3 Est. Patient 15:17:44 CDT Law Rosas [facility] CPT-96046 Level 4 Est. Patient 15:13:53 CDT Wellington Muniz [facility] CPT-95869 Level 3 Est. Patient 14:25:12 BELLPERSON Ian Valdez MD [facility] CPT-38291 Level 3 Est. Patient 10:24:46 CDT Ian Valdez MD [facility] CPT-87523 Level 3 Est. Patient 15:34:19 CDT Ian Valdez MD [facility] CPT-63030 Level 3 Est. Patient 14:22:41 CDT Ian Valdez MD [facility] CPT-25263 Level 3 Est. Patient 15:07:22 BELLPERSON Ian Valdez MD [facility] CPT-46410 Level 3 New Patient 09:06:43 BELLPERSON Ian Valdez MD [facility] CPT-27042 Level 3 Est. Patient 15:09:00 BELLPERSON Ian Valdez MD [facility] Procedures Code Procedure Name Date Entry Date Standard Description CPT-J1885 Toradol 60 mg (Ketorolac) 15:37:32 CDT CPT-53981 Abx/Therapy Injection 15:37:32 CDT CPT-J1885 Toradol 60 mg (Ketorolac) 14:45:01 CDT CPT-OV Office Visit 15:19:52 CDT CPT-OV Office Visit 10:41:01 CDT CPT-16101 Core biop breast wo imaging 16:50:06 CDT CPT-OV Office Visit 16:50:05 CDT CPT-99698 UHCG (floor use only) 13:39:36 CDT CPT-00642 Nexplanon Placement 10:11:48 CDT CPT-J7307 Nexplanon (Implant) 10:11:48 CDT CPT-OV Office Visit 09:54:18 CDT CPT-33033 EKG Trac and Interp 16:50:19 CDT CPT-16716 Venipuncture Draw Fee 15:06:08 CDT CPT-J2930 Solu Medrol 125 mg (Methyl Prednisolone Sodium Succinate) 12:44:46 CDT CPT-J1055 Depo Provera 150 mg (Medroxyprogesterone) 12:44:46 CDT CPT-67988 Abx/Therapy Injection 12:44:46 CDT CPT-J1055 Depo Provera 150 mg (Medroxyprogesterone) 14:28:41 CDT CPT-J2930 Solu Medrol 125 mg (Methyl Prednisolone Sodium Succinate) 14:22:41 CDT CPT-05933 Administration single or combination vaccine inc oral 10 :08:06 CDT CPT-00352 Tdap 10:08:06 CDT CPT-G0402 Wlcm To Medicare Ex 22:17:30 CDT CPT-74868 Venipuncture Draw Fee 10:33:07 BELLPERSON CPT-54724 Venipuncture Draw Fee 10:17:37 BELLPERSON CPT-G0403 EKG Wlc To Medicare 22:17:30 CDT
[2018-07-17 21:41] LABS: ALANINE AMINOTRANSFERASE 18 U/L (0-55); ALKALINE PHOSPHATASE 53 U/L (40-136); BILIRUBIN,TOTAL 0.3 MG/DL (0.1-1.0); BUN/CREATININE RATIO 16; CALCIUM 9.6 MG/DL (8.5-10.1); CARBON DIOXIDE 21 MMOL/L (21-32); CHLORIDE 101 MMOL/L (98-107); GFR ESTIMATED > 60; GLUCOSE 82 MG/DL (70-105); POTASSIUM 3.8 MMOL/L (3.6-5.0); SODIUM 140 MMOL/L (135-145)
--- OUTSIDE RECORDS SUMMARY | 2018-07-17 21:41 | XMS REPORT | Clinical Summary ---
Author Author Admin, ARIAN Organization [facility] Address Unknown Phone Unavailable Allergies, Adverse [...] management EUSTACHIAN TUBE DYSFUNCTION 381.81 Resolved Ian Vadlez MD Dysfunction of Eustachian tube TOBACCO ABUSE 305.1 Active Ian Valdez MD Tobacco use disorder ASTHMA NOS W/ACUTE EXACERBATION 493.92 Resolved Thom Gilbert MD Asthma, unspecified with (acute) exacerbation ACUTE BRONCHITIS 466.0 Resolved Ian aVldez MD Acute bronchitis LATERAL EPICONDYLITIS, RIGHT 726.32 [...] MULTIVITAMINS CAPS 1 tablet daily MULTIPLE VITAMIN 74228207108 Active Juan Smith MD Active CYCLOBENZAPRINE HCL 10 MG TABS 1/2 - 1 tab by mouth three times daily if needed for spasms/pain CYCLOBENZAPRINE HCL 46207195749 Active Eva Ferrara MD PhD Active GLUCOPHAGE 500 MG TABS 1 tab BID with morning and night meals METFORMIN HCL 01104379142 Active Eva Ferrara MD PhD Active PROGESTERONE MICRONIZED 100 MG CAPS 2 caps daily day 16 thru 25 of cycle 2013 PROGESTERONE MICRONIZED 08948886901 Active Eva Ferrara MD PhD Active TERBINAFINE HCL 1 % CREA Apply bid to rash TERBINAFINE HCL 35559471061 No Longer Active vEa Ferrara MD PhD Active TOPAMAX 25 MG TABS 1 tab po qhs x 1 week, then take 2 tabs po qhs TOPIRAMATE 39332911773 No Longer Active Thom Gilbert MD Active ULTRAM 50 MG TAB take 1 tab po q6hrs prn pain TRAMADOL HCL 91651097041 Active Ian Valdez MD Active LAMISIL AT 1 % CREA apply bid to rash TERBINAFINE HCL 30171728888 No Longer Active Thom Gilbert MD Active TERBINAFINE HCL 250 MG TABS 1 qDay TERBINAFINE HCL 71283181042 No Longer Active Ian Valdez MD Active XANAX 0.25 MG TABS take 1 tab po bid prn anxiety. ALPRAZOLAM 93980758073 No Longer Active Ian Valdez MD Active FISH OIL 1000 MG CAPS 2 caps PO once daily at bedtime OMEGA-3 FATTY ACIDS 30010401246 No Longer Active Ian Valdez MD Active KLOR-CON M20 20 MEQ CR-TABS take 1 tab po qday with lasix POTASSIUM CHLORIDE GALILEO CR 21583049372 Active Ian Valdez MD Active LASIX 20 MG TAB 1 tablet by mouth daily prn swelling FUROSEMIDE 97087718869 Active Ian Valdez MD Active FLONASE 50 MCG/ACT SUSP 2 puffs in each nostril once daily at bedtime FLUTICASONE PROPIONATE 97482477345 Active Ian Valdez MD Active CVS MELATONIN 3 MG TABS 2 tabs PO at bedtime MELATONIN 91451399070 Active Ian Valdez MD Active PULMICORT FLEXHALER 180 MCG/ACT AEPB 2 INH BID BUDESONIDE 25571941729 No Longer Active Ian Valdez MD Active METFORMIN HCL 500 MG TB24 1 TAB PO Q HS METFORMIN HCL 08511716516 No Longer Active Ian Valdez MD Active CYCLOBENZAPRINE HCL 10 MG TABS 1 PO q 8 hrs PRN muscle spasm 2012 CYCLOBENZAPRINE HCL 80609359334 No Longer Active Ian Valdez MD Active AZITHROMYCIN 500 MG TABS 1 PO q day x 6 days AZITHROMYCIN 45773593729 No Longer Active Ian Valdez MD Active CIPRO 500 MG TAB 1 tablet by mouth twice daily CIPROFLOXACIN HCL 81083856300 No Longer Active Ian Valdez MD Active PREDNISONE 20 MG TABS 3 qd x 2d, 2 qd x 2d, 1 qd x 2d, 1/2 qd x 2d PREDNISONE 42761208282 No Longer Active Law FIGUEROA Active CELEXA 40 MG TABS 2 PO DAILY CITALOPRAM HYDROBROMIDE 46711287142 Active Ian Valdez MD Active OMEPRAZOLE 20 MG CPDR 1 tablet by mouth daily OMEPRAZOLE 12224555809 No Longer Active [place] FIGUEROA Active KLONOPIN 0.5 MG TABS 1 TABLET PO PRN CLONAZEPAM 63698421525 No Longer Active [place] FIGUEROA Active MOBIC 7.5 MG TABS 1 tablet by mouthonce a day MELOXICAM 24574433809 No Longer Active [place] FIGUEROA Active ZITHROMAX 1 GM PACK DIRECTED AZITHROMYCIN 60560678373 No Longer Active Ian Valdez MD Active ALBUTEROL SULFATE 0.083 % NEBU SOLN one vial per nebulizer every 4-6 hours as needed ALBUTEROL SULFATE 86028567486 Active Ian Valdez MD Active CHANTIX STARTING MONTH REBEKAH 0.5 MG X 11 & 1 MG X 42 TABS 0.5mg daily for 3 days , then 0.5mg BID for 4 days, then 1mg BID VARENICLINE TARTRATE 13271274519 No Longer Active Ian Valdez MD Active ZITHROMAX 1 GM PACK DIRECTED AZITHROMYCIN 79054225260 No Longer Active Ian Valdez MD Active AURALGAN 1.4-5.5 % SOLN BENZOCAINE-ANTIPYRINE 56109044144 No Longer Active Ian Valdez MD Active PREDNISONE 20 MG TAB 3 tabs daily for 3 days, 2 tab daily for 3 days, 1 tab daily for 2 days, then 1/2 tab dialy for 2 days PREDNISONE 12153874081 No Longer Active Ian Valdez MD Active SIMVASTATIN 40 MG TABS 1 TABLET PO Q HS SIMVASTATIN 96179792393 Active Ian Valdez MD Active SIMVASTATIN 80 MG TABS Take one by mouth daily SIMVASTATIN 97383072218 No Longer Active Ian Valdez MD Active PREDNISONE 20 MG TAB 2 tabs daily for 3 days, 1 tab daily for 3 days, 1/2 tab daily for 2 days PREDNISONE 25930587820 No Longer Active Ian Valdez MD Active ZITHROMAX 250 MG TAB 2 po today, then 1 po q days 2-5 AZITHROMYCIN 08419035110 No Longer Active Ian Valdez MD Active TRAZODONE HCL 100 MG TABS 2 TABS PO Q HS TRAZODONE HCL 93295637682 Active Ian Valdez MD Active ZITHROMAX 250 MG TAB 2 po today, then 1 po q days 2-5 AZITHROMYCIN 38382927964 No Longer Active Ian Valdez MD Active SIMVASTATIN 80 MG TABS Take one by mouth daily SIMVASTATIN 80 MG TABS 543337 SIMVASTATIN Inactive AURALGAN 1.4-5.5 % SOLN AURALGAN 1.4-5.5 % SOLN BENZOCAINE-ANTIPYRINE Inactive ZITHROMAX 1 GM PACK DIRECTED ZITHROMAX 1 GM PACK 048981 AZITHROMYCIN Inactive CHANTIX STARTING MONTH REBEKAH 0.5 MG X 11 & 1 MG X 42 TABS 0.5mg daily for 3 days , then 0.5mg BID for 4 days, then 1mg BID CHANTIX STARTING MONTH REBEKAH 0.5 MG X 11 & 1 MG X 42 TABS VARENICLINE TARTRATE Inactive ZITHROMAX 1 GM PACK DIRECTED ZITHROMAX 1 GM PACK 593437 AZITHROMYCIN Inactive MOBIC 7.5 MG TABS 1 tablet by mouthonce a day MOBIC 7.5 MG TABS 998280 MELOXICAM Inactive KLONOPIN 0.5 MG TABS 1 TABLET PO PRN KLONOPIN 0.5 MG TABS 839455 CLONAZEPAM Inactive CIPRO 500 MG TAB 1 tablet by mouth twice daily CIPRO 500 MG TAB 837790 CIPROFLOXACIN HCL Inactive AZITHROMYCIN 500 MG TABS 1 PO q day x 6 days AZITHROMYCIN 500 MG TABS 9497007 AZITHROMYCIN Inactive CYCLOBENZAPRINE HCL 10 MG TABS 1 PO q 8 hrs PRN muscle spasm 2012 CYCLOBENZAPRINE HCL 10 MG TABS 800839 CYCLOBENZAPRINE HCL Inactive METFORMIN HCL 500 MG [...] bid prn anxiety. XANAX 0.25 MG TABS 414757 ALPRAZOLAM Inactive LAMISIL AT 1 % CREA apply bid to rash LAMISIL AT 1 % CREA 518613 TERBINAFINE HCL Inactive TOPAMAX 25 MG TABS 1 tab po qhs x 1 week, then take 2 tabs po qhs TOPAMAX 25 MG TABS 679133 TOPIRAMATE Inactive TERBINAFINE HCL 1 % CREA Apply bid to rash TERBINAFINE HCL 1 % CREA 480542 TERBINAFINE HCL Inactive ZITHROMAX 250 MG TAB 2 po today, then 1 po q days 2-5 ZITHROMAX 250 MG TAB 8222605 AZITHROMYCIN Inactive ZITHROMAX 250 MG TAB 2 po today, then 1 po q days 2-5 ZITHROMAX 250 MG TAB 2683016 AZITHROMYCIN Inactive PREDNISONE 20 MG TAB 2 tabs daily for 3 days, 1 tab daily for 3 days, 1/2 tab daily for 2 days PREDNISONE 20 MG TAB 865714 PREDNISONE Inactive PREDNISONE 20 MG TAB 3 tabs daily for 3 days, 2 tab daily for 3 days, 1 tab daily for 2 days, then 1/2 tab dialy for 2 days PREDNISONE 20 MG TAB 268399 PREDNISONE Inactive OMEPRAZOLE 20 MG CPDR 1 tablet by mouth daily OMEPRAZOLE 20 MG CPDR 583716 OMEPRAZOLE Inactive PREDNISONE 20 MG TABS 3 qd x 2d, 2 qd x 2d, 1 qd x 2d, 1/2 qd x 2d PREDNISONE 20 MG TABS 030624 PREDNISONE Inactive TERBINAFINE HCL 250 MG TABS 1 qDay TERBINAFINE HCL 250 MG TABS 134457 TERBINAFINE HCL Inactive Advance Directives Directive Description Start Date NO HEROIC MEASURES Immunizations Vaccine Administration Date Value Standard Description Boostrix (Tetanus toxoid, reduced diphtheria toxoid and acellular pertussis vaccine, adsorbed), booster Boostrix [[id number]] tetanus toxoid, reduced diphtheria toxoid, and acellular [...] 5.3 % 4.3-6.0 sodium, serum 139 mmol/L 472-828 8994/02/24 potassium, serum 4.4 mmol/L 3.5-5.2 chloride, serum [...] 1.44 m[iU]/mL 0.36-3.74 cholesterol, serum 144 mg/dL 154-194 1894/11/19 triglyceride, serum, fasting 172 mg/dL 30-200 HDL cholesterol, serum 30 mg/dL 32-96 LDL cholesterol, serum 80 mg/dL 0-130 sodium, serum 137 mmol/L 878-188 9926/11/19 potassium, serum 4.1 mmol/L 3.5-5.2 chloride, serum [...] Panel - Chemistry cholesterol, serum 118 mg/dL 485-279 8156/02/24 triglyceride, serum, fasting 141 mg/dL 30-200 HDL cholesterol, serum 20 mg/dL 32-96 LDL cholesterol, serum 70 mg/dL 0-130 Office Visit: Consult infertility - Chemistry human chorionic gonadotropin, urine, qualitative (urine test) Negative Encounters Code Encounter Date Provider Facility CPT-91418 Level 3 Est. Patient 15:32:41 STRATEGIC ACCOUNT DIRECTOR Juan Smith MD [facility] CPT-69803 Level 3 Est. Patient 14:45:01 CDT Eva Ferrara MD PhD [facility] CPT-32201 Level 3 Est. Patient 14:54:10 CDT Ian Valdez MD [facility]-44188 Level 4 Est. Patient 20:36:52 CDT Ian Valdez MD [facility]-00735 Level 4 Est. Patient 11:14:30 STRATEGIC ACCOUNT DIRECTOR Ian Valdez MD [facility]-91972 Level 3 Est. Patient 19:08:34 STRATEGIC ACCOUNT DIRECTOR Ian Valdez MD [facility]-45944 Level 3 Est. Patient 13:17:39 STRATEGIC ACCOUNT DIRECTOR Ian Valdez MD [facility]-38481 Level 4 Est. Patient 18:56:10 CDT Ian Valdez MD [facility]-24406 Level 4 Est. Patient 16:55:56 CDT Ian Valdez MD [facility]-35200 Level 3 Est. Patient 11:27:07 CDT Ian Valdez MD [facility]-14645 Level 3 Est. Patient 15:17:44 CDT Law Rosas [facility]-13262 Level 4 Est. Patient 15:13:53 CDT Wellington Muniz [facility]-50922 Level 3 Est. Patient 14:25:12 STRATEGIC ACCOUNT DIRECTOR Ian Valdez MD [facility]-44411 Level 3 Est. Patient 10:24:46 CDT Ian Valdez MD [facility]-75114 Level 3 Est. Patient 15:34:19 CDT Ian Valdez MD [facility]-73969 Level 3 Est. Patient 14:22:41 CDT Ian Valdez MD [facility]-88138 Level 3 Est. Patient 15:07:22 STRATEGIC ACCOUNT DIRECTOR Ian Valdez MD [facility] CPT-04441 Level 3 New Patient 09:06:43 STRATEGIC ACCOUNT DIRECTOR Ian Valdez MD [facility] CPT-79771 Level 3 Est. Patient 15:09:00 STRATEGIC ACCOUNT DIRECTOR Ian Valdez MD [facility] Procedures Code Procedure Name Date Entry Date Standard Description CPT-OV Office Visit 15:49:26 STRATEGIC ACCOUNT DIRECTOR CPT-J1885 Toradol 60 mg (Ketorolac) 15:37:32 CDT CPT-14028 Abx/Therapy Injection 15:37:32 CDT CPT-J1885 Toradol 60 mg (Ketorolac) 14:45:01 CDT CPT-OV Office Visit 15:19:52 CDT CPT-OV Office Visit 10:41:01 CDT CPT-71476 Core biop breast wo imaging 16:50:06 CDT CPT-OV Office Visit 16:50:05 CDT CPT-91423 UHCG (floor use only) 13:39:36 CDT CPT-44563 Nexplanon Placement 10:11:48 CDT CPT-J7307 Nexplanon (Implant) 10:11:48 CDT CPT-OV Office Visit 09:54:18 CDT CPT-59255 EKG Trac and Interp 16:50:19 CDT CPT-24075 Venipuncture Draw Fee 15:06:08 CDT CPT-J2930 Solu Medrol 125 mg (Methyl Prednisolone Sodium Succinate) 12:44:46 CDT CPT-J1055 Depo Provera 150 mg (Medroxyprogesterone) 12:44:46 CDT CPT-47969 Abx/Therapy Injection 12:44:46 CDT CPT-J1055 Depo Provera 150 mg (Medroxyprogesterone) 14:28:41 CDT CPT-J2930 Solu Medrol 125 mg (Methyl Prednisolone Sodium Succinate) 14:22:41 CDT CPT-60263 Administration single or combination vaccine inc oral 10 :08:06 CDT CPT-14831 Tdap 10:08:06 CDT CPT-G0402 Wlcm To Medicare Ex 22:17:30 CDT CPT-78571 Venipuncture Draw Fee 10:33:07 STRATEGIC ACCOUNT DIRECTOR CPT-37838 Venipuncture Draw Fee 10:17:37 STRATEGIC ACCOUNT DIRECTOR CPT-G0403 EKG Wl To Medicare 22:17:30 CDT
[2018-07-17 21:42] LABS: ALBUMIN 4.4 GM/DL (3.2-4.5); TOTAL PROTEIN 7.2 GM/DL (6.4-8.2)
--- OUTSIDE RECORDS SUMMARY | 2018-07-17 21:42 | XMS REPORT | Clinical Summary ---
Author Author Admin, ARIAN Organization [facility] Address Unknown Phone Allergies, Adverse Reactions, Alerts [...] loss ROUTINE HEALTH MAINTENANCE V70.0 Active Ian Vadlez MD Routine general medical examination at a [...] CREA apply bid to rash TERBINAFINE HCL 31148931444 Active Ian Valdez MD Active TERBINAFINE HCL 250 MG TABS 1 qDay TERBINAFINE HCL 28879449584 No Longer Active Ian Valdez MD Active TOPAMAX 25 MG TABS 1 tab po qhs x 1 week, then take 2 tabs po qhs TOPIRAMATE 08097697243 Active Ian Valdez MD Active XANAX 0.25 MG TABS take 1 tab po bid prn anxiety. ALPRAZOLAM 25820126256 No Longer Active Ian Valdez MD Active FISH OIL 1000 MG CAPS 2 caps PO once daily at bedtime OMEGA-3 FATTY ACIDS 21592498603 No Longer Active Ian Valdez MD Active KLOR-CON M20 20 MEQ CR-TABS take 1 tab po qday with lasix POTASSIUM CHLORIDE GALILEO CR 81475827593 Active Ian Valdez MD Active LASIX 20 MG TAB 1 tablet by mouth daily prn swelling FUROSEMIDE 83637501705 Active Ian Valdez MD Active FLONASE 50 MCG/ACT SUSP 2 puffs in each nostril once daily at bedtime FLUTICASONE PROPIONATE 13881752029 Active Ian Valdez MD Active CVS MELATONIN 3 MG TABS 2 tabs PO at bedtime MELATONIN 71601112245 Active Ian Valdez MD Active PULMICORT FLEXHALER 180 MCG/ACT AEPB 2 INH BID BUDESONIDE 14370557571 No Longer Active Ian Valdez MD Active METFORMIN HCL 500 MG TB24 1 TAB PO Q HS METFORMIN HCL 08369025593 No Longer Active Ian Valdez MD Active CYCLOBENZAPRINE HCL 10 MG TABS 1 PO q 8 hrs PRN muscle spasm 2012 CYCLOBENZAPRINE HCL 87597150420 No Longer Active Ian Valdez MD Active AZITHROMYCIN 500 MG TABS 1 PO q day x 6 days AZITHROMYCIN 65281634778 No Longer Active Ian Valdez MD Active CIPRO 500 MG TAB 1 tablet by mouth twice daily CIPROFLOXACIN HCL 07380856032 No Longer Active Ian Valdez MD Active PREDNISONE 20 MG TABS 3 qd x 2d, 2 qd x 2d, 1 qd x 2d, 1/2 qd x 2d PREDNISONE 65265474663 No Longer Active Law FIGUEROA Active CELEXA 40 MG TABS 2 PO DAILY CITALOPRAM HYDROBROMIDE 82008265978 Active Ian Valdez MD Active OMEPRAZOLE 20 MG CPDR 1 tablet by mouth daily OMEPRAZOLE 29412711359 No Longer Active [place] FIGUEROA Active KLONOPIN 0.5 MG TABS 1 TABLET PO PRN CLONAZEPAM 06749981906 No Longer Active [place] FIGUEROA Active MOBIC 7.5 MG TABS 1 tablet by mouthonce a day MELOXICAM 14459287882 No Longer Active [place] FIGUEROA Active ZITHROMAX 1 GM PACK DIRECTED AZITHROMYCIN 02884806303 No Longer Active Ian Valdez MD Active ALBUTEROL SULFATE 0.083 % NEBU SOLN one vial per nebulizer every 4-6 hours as needed ALBUTEROL SULFATE 79229318148 Active Ian Valdez MD Active CHANTIX STARTING MONTH REBEKAH 0.5 MG X 11 & 1 MG X 42 TABS 0.5mg daily for 3 days , then 0.5mg BID for 4 days, then 1mg BID VARENICLINE TARTRATE 56709788149 No Longer Active Ian Valdez MD Active ZITHROMAX 1 GM PACK DIRECTED AZITHROMYCIN 22261544438 No Longer Active Ian Valdez MD Active AURALGAN 1.4-5.5 % SOLN BENZOCAINE-ANTIPYRINE 97065046467 No Longer Active Ian Valdez MD Active PREDNISONE 20 MG TAB 3 tabs daily for 3 days, 2 tab daily for 3 days, 1 tab daily for 2 days, then 1/2 tab dialy for 2 days PREDNISONE 23992974177 No Longer Active Ian Valdez MD Active SIMVASTATIN 40 MG TABS 1 TABLET PO Q HS SIMVASTATIN 82856860912 Active Ian Valdez MD Active SIMVASTATIN 80 MG TABS Take one by mouth daily SIMVASTATIN 14176156684 No Longer Active Ian Valdez MD Active PREDNISONE 20 MG TAB 2 tabs daily for 3 days, 1 tab daily for 3 days, 1/2 tab daily for 2 days PREDNISONE 30337179594 No Longer Active Ian Valdez MD Active ZITHROMAX 250 MG TAB 2 po today, then 1 po q days 2-5 AZITHROMYCIN 32882072947 No Longer Active Ian Valdez MD Active TRAZODONE HCL 100 MG TABS 2 TABS PO Q HS TRAZODONE HCL 75048649825 Active Ian Valdez MD Active ZITHROMAX 250 MG TAB 2 po today, then 1 po q days 2-5 AZITHROMYCIN 50823420152 No Longer Active Ian Valdez MD Active SIMVASTATIN 80 MG TABS Take one by mouth daily SIMVASTATIN 80 MG TABS 771969 SIMVASTATIN Inactive AURALGAN 1.4-5.5 % SOLN AURALGAN 1.4-5.5 % SOLN 9709018 BENZOCAINE-ANTIPYRINE Inactive ZITHROMAX 1 GM PACK DIRECTED ZITHROMAX 1 GM PACK 280769 AZITHROMYCIN Inactive CHANTIX STARTING MONTH REBEKAH 0.5 MG X 11 & 1 MG X 42 TABS 0.5mg daily for 3 days , then 0.5mg BID for 4 days, then 1mg BID CHANTIX STARTING MONTH REBEKAH 0.5 MG X 11 & 1 MG X 42 TABS VARENICLINE TARTRATE Inactive ZITHROMAX 1 GM PACK DIRECTED ZITHROMAX 1 GM PACK 586722 AZITHROMYCIN Inactive MOBIC 7.5 MG TABS 1 tablet by mouthonce a day MOBIC 7.5 MG TABS 542672 MELOXICAM Inactive KLONOPIN 0.5 MG TABS 1 TABLET PO PRN KLONOPIN 0.5 MG TABS 000025 CLONAZEPAM Inactive CIPRO 500 MG TAB 1 tablet by mouth twice daily CIPRO 500 MG TAB 594288 CIPROFLOXACIN HCL Inactive AZITHROMYCIN 500 MG TABS 1 PO q day x 6 days AZITHROMYCIN 500 MG TABS 8823538 AZITHROMYCIN Inactive CYCLOBENZAPRINE HCL 10 MG TABS 1 PO q 8 hrs PRN muscle spasm 2012 CYCLOBENZAPRINE HCL 10 MG TABS 907920 CYCLOBENZAPRINE HCL Inactive METFORMIN HCL 500 MG [...] bid prn anxiety. XANAX 0.25 MG TABS 455833 ALPRAZOLAM Inactive ZITHROMAX 250 MG TAB 2 po today, then 1 po q days 2-5 ZITHROMAX 250 MG TAB 7720199 AZITHROMYCIN Inactive ZITHROMAX 250 MG TAB 2 po today, then 1 po q days 2-5 ZITHROMAX 250 MG TAB 7687673 AZITHROMYCIN Inactive PREDNISONE 20 MG TAB 2 tabs daily for 3 days, 1 tab daily for 3 days, 1/2 tab daily for 2 days PREDNISONE 20 MG TAB 835086 PREDNISONE Inactive PREDNISONE 20 MG TAB 3 tabs daily for 3 days, 2 tab daily for 3 days, 1 tab daily for 2 days, then 1/2 tab dialy for 2 days PREDNISONE 20 MG TAB 963591 PREDNISONE Inactive OMEPRAZOLE 20 MG CPDR 1 tablet by mouth daily OMEPRAZOLE 20 MG CPDR 631789 OMEPRAZOLE Inactive PREDNISONE 20 MG TABS 3 qd x 2d, 2 qd x 2d, 1 qd x 2d, 1/2 qd x 2d PREDNISONE 20 MG TABS 729850 PREDNISONE Inactive TERBINAFINE HCL 250 MG TABS 1 qDay TERBINAFINE HCL 250 MG TABS 856620 TERBINAFINE HCL Inactive Advance Directives Directive Description Start Date NO HEROIC MEASURES Immunizations Vaccine Administration Date Value Standard Description Combined Fdkdfzmeyo-Sohbqdw-znlobutqa Pertussis (dTpa) Vaccine - Booster 07/05 Boostrix [[id number]] tetanus toxoid, reduced diphtheria toxoid, and acellular [...] Panel - Chemistry sodium, serum 137 mmol/L 455-571 7564/07/25 potassium, serum 3.7 mmol/L 3.5-5.2 chloride, serum 102 mmol/L 98-107 carbon dioxide, venous blood 27.3 mmol/L 21.0-32.0 blood glucose 85 mg/dL 65-110 calcium, serum 8.5 mg/dL 8.5-10.1 urea nitrogen, blood 7 mg/dL 7-18 creatinine, serum 0.80 mg/dL 0.60-1.30 Lab Report: CBC, HGBA1C, Comp. Metabolic Panel - Chemistry hemoglobin A1C, blood, as % of total hemoglobin 5.3 % 4.3-6.0 sodium, serum 139 mmol/L 869-138 5591/02/24 potassium, serum 4.4 mmol/L 3.5-5.2 chloride, serum [...] Panel - Chemistry cholesterol, serum 118 mg/dL 873-288 6130/02/24 triglyceride, serum, fasting 141 mg/dL 30-200 HDL cholesterol, serum 20 mg/dL 32-96 LDL cholesterol, serum 70 mg/dL 0-130 Lab Report: Lipid Panel, Comp. Metabolic Panel, MICROALBUMIN, HGBA1C - Chemistry cholesterol, serum 172 mg/dL 164-095 0359/08/16 triglyceride, serum, fasting 267 mg/dL 30-200 HDL cholesterol, serum 22 mg/dL 32-96 LDL cholesterol, serum 97 mg/dL 0-130 sodium, serum 141 mmol/L 213-192 6629/08/16 potassium, serum 4.2 mmol/L 3.5-5.2 chloride, serum [...] Negative Encounters Code Encounter Date Provider Facility CPT-76452 Level 3 Est. Patient 14:54:10 CDT Ian Valdez MD [facility] CPT-90911 Level 4 Est. Patient 20:36:52 CDT Ian Valdez MD [facility] CPT-53565 Level 4 Est. Patient 11:14:30 MANAGER MEDICAL Ian Valdez MD [facility] CPT-03822 Level 3 Est. Patient 19:08:34 MANAGER MEDICAL Ian Vadlez MD [facility] CPT-70048 Level 3 Est. Patient 13:17:39 MANAGER MEDICAL Ian Valdez MD [facility] CPT-82747 Level 4 Est. Patient 18:56:10 CDT Ian Valdez MD [facility] CPT-57368 Level 4 Est. Patient 16:55:56 CDT Ian Valdez MD [facility] CPT-78238 Level 3 Est. Patient 11:27:07 CDT Ian Valdez MD [facility] CPT-28532 Level 3 Est. Patient 15:17:44 CDT Law Rosas [facility] CPT-24913 Level 4 Est. Patient 15:13:53 CDT Wellington Muniz PA [facility] CPT-92377 Level 3 Est. Patient 14:25:12 MANAGER MEDICAL Ian Valdez MD [facility] CPT-09953 Level 3 Est. Patient 10:24:46 CDT Ian Valdez MD [facility] CPT-53851 Level 3 Est. Patient 15:34:19 CDT Ian Valdez MD [facility] CPT-19152 Level 3 Est. Patient 14:22:41 CDT Ian Valdez MD [facility] CPT-76377 Level 3 Est. Patient 15:07:22 MANAGER MEDICAL Ian Valdez MD [facility] CPT-30694 Level 3 New Patient 09:06:43 MANAGER MEDICAL Ian Valdez MD [facility] CPT-36863 Level 3 Est. Patient 15:09:00 MANAGER MEDICAL Ian Valdez MD [facility] Procedures Code Procedure Name Date Entry Date Standard Description CPT-64668 UHCG (floor use only) 13:39:36 CDT CPT-28379 Nexplanon Placement 10:11:48 CDT CPT-J7307 Nexplanon (Implant) 10:11:48 CDT CPT-OV Office Visit 09:54:18 CDT CPT-53827 EKG Trac and Interp 16:50:19 CDT CPT-43559 Venipuncture Draw Fee 15:06:08 CDT CPT-J2930 Solu Medrol 125 mg (Methyl Prednisolone Sodium Succinate) 12:44:46 CDT CPT-J1055 Depo Provera 150 mg (Medroxyprogesterone) 12:44:46 CDT CPT-34474 Abx/Therapy Injection 12:44:46 CDT CPT-J1055 Depo Provera 150 mg (Medroxyprogesterone) 14:28:41 CDT CPT-J2930 Solu Medrol 125 mg (Methyl Prednisolone Sodium Succinate) 14:22:41 CDT CPT-65533 Administration single or combination vaccine inc oral 10 :08:06 CDT CPT-98178 Tdap 10:08:06 CDT CPT-G0402 Wlcm To Medicare Ex 22:17:30 CDT CPT-95298 Venipuncture Draw Fee 10:33:07 MANAGER MEDICAL CPT-14558 Venipuncture Draw Fee 10:17:37 MANAGER MEDICAL CPT-G040[address] [facility] To Medicare 22:17:30 CDT
--- OUTSIDE RECORDS SUMMARY | 2018-07-17 21:43 | XMS REPORT | Clinical Summary ---
[...] Generic Name NDC Status Provider Patient Instruction TOPAMAX 25 MG TABS 1 tab po qhs x 1 week, then take 2 tabs po qhs TOPIRAMATE 31845839192 No Longer Active Thom Gilbert MD Active ULTRAM 50 MG TAB take 1 tab po q6hrs prn pain TRAMADOL HCL 23493314681 Active Ian Valdez MD Active LAMISIL AT 1 % CREA apply bid to rash TERBINAFINE HCL 16982646176 No Longer Active Thom Gilbert MD Active TERBINAFINE HCL 250 MG TABS 1 qDay TERBINAFINE HCL 33419832857 No Longer Active Ian Valdez MD Active XANAX 0.25 MG TABS take 1 tab po bid prn anxiety. ALPRAZOLAM 59143483360 No Longer Active Ian Valdez MD Active FISH OIL 1000 MG CAPS 2 caps PO once daily at bedtime OMEGA-3 FATTY ACIDS 69963629449 No Longer Active Ian Valdez MD Active KLOR-CON M20 20 MEQ CR-TABS take 1 tab po qday with lasix POTASSIUM CHLORIDE GALILEO CR 62729605703 Active Ian Valdez MD Active LASIX 20 MG TAB 1 tablet by mouth daily prn swelling FUROSEMIDE 52002691620 Active Ian Valdez MD Active FLONASE 50 MCG/ACT SUSP 2 puffs in each nostril once daily at bedtime FLUTICASONE PROPIONATE 09148219645 Active Ian Valdez MD Active CVS MELATONIN 3 MG TABS 2 tabs PO at bedtime MELATONIN 93090556258 Active Ian Valdez MD Active PULMICORT FLEXHALER 180 MCG/ACT AEPB 2 INH BID BUDESONIDE 68514038838 No Longer Active Ian Valdez MD Active METFORMIN HCL 500 MG TB24 1 TAB PO Q HS METFORMIN HCL 52920411151 No Longer Active Ian Valdez MD Active CYCLOBENZAPRINE HCL 10 MG TABS 1 PO q 8 hrs PRN muscle spasm 2012 CYCLOBENZAPRINE HCL 17149662598 No Longer Active Ian Valdez MD Active AZITHROMYCIN 500 MG TABS 1 PO q day x 6 days AZITHROMYCIN 43857651504 No Longer Active Ian Valdez MD Active CIPRO 500 MG TAB 1 tablet by mouth twice daily CIPROFLOXACIN HCL 31070876502 No Longer Active Ian Valdez MD Active PREDNISONE 20 MG TABS 3 qd x 2d, 2 qd x 2d, 1 qd x 2d, 1/2 qd x 2d PREDNISONE 10026990430 No Longer Active Law FIGUEROA Active CELEXA 40 MG TABS 2 PO DAILY CITALOPRAM HYDROBROMIDE 96821007008 Active Ian Valdez MD Active OMEPRAZOLE 20 MG CPDR 1 tablet by mouth daily OMEPRAZOLE 99101053477 No Longer Active [place] FIGUEROA Active KLONOPIN 0.5 MG TABS 1 TABLET PO PRN CLONAZEPAM 75022300429 No Longer Active [place] FIGUEROA Active MOBIC 7.5 MG TABS 1 tablet by mouthonce a day MELOXICAM 13360495359 No Longer Active [place] FIGUEROA Active ZITHROMAX 1 GM PACK DIRECTED AZITHROMYCIN 10742613151 No Longer Active Ian Valdez MD Active ALBUTEROL SULFATE 0.083 % NEBU SOLN one vial per nebulizer every 4-6 hours as needed ALBUTEROL SULFATE 65120718440 Active Ian Valdez MD Active CHANTIX STARTING MONTH REBEKAH 0.5 MG X 11 & 1 MG X 42 TABS 0.5mg daily for 3 days , then 0.5mg BID for 4 days, then 1mg BID VARENICLINE TARTRATE 51406676927 No Longer Active Ian Valdez MD Active ZITHROMAX 1 GM PACK DIRECTED AZITHROMYCIN 54401404091 No Longer Active Ian Valdez MD Active AURALGAN 1.4-5.5 % SOLN BENZOCAINE-ANTIPYRINE 92879900789 No Longer Active Ian Valdez MD Active PREDNISONE 20 MG TAB 3 tabs daily for 3 days, 2 tab daily for 3 days, 1 tab daily for 2 days, then 1/2 tab dialy for 2 days PREDNISONE 31095202008 No Longer Active Ian Valdez MD Active SIMVASTATIN 40 MG TABS 1 TABLET PO Q HS SIMVASTATIN 87624667989 Active Ian Valdez MD Active SIMVASTATIN 80 MG TABS Take one by mouth daily SIMVASTATIN 50254775094 No Longer Active Ian Valdez MD Active PREDNISONE 20 MG TAB 2 tabs daily for 3 days, 1 tab daily for 3 days, 1/2 tab daily for 2 days PREDNISONE 08357322440 No Longer Active Ian Valdez MD Active ZITHROMAX 250 MG TAB 2 po today, then 1 po q days 2-5 AZITHROMYCIN 28968872862 No Longer Active Ian Valdez MD Active TRAZODONE HCL 100 MG TABS 2 TABS PO Q HS TRAZODONE HCL 08499409358 Active Ian Valdez MD Active ZITHROMAX 250 MG TAB 2 po today, then 1 po q days 2-5 AZITHROMYCIN 92228034020 No Longer Active Ian Valdez MD Active SIMVASTATIN 80 MG TABS Take one by mouth daily SIMVASTATIN 80 MG TABS 209680 SIMVASTATIN Inactive AURALGAN 1.4-5.5 % SOLN AURALGAN 1.4-5.5 % SOLN BENZOCAINE-ANTIPYRINE Inactive ZITHROMAX 1 GM PACK DIRECTED ZITHROMAX 1 GM PACK 733970 AZITHROMYCIN Inactive CHANTIX STARTING MONTH REBEKAH 0.5 MG X 11 & 1 MG X 42 TABS 0.5mg daily for 3 days , then 0.5mg BID for 4 days, then 1mg BID CHANTIX STARTING MONTH REBEKAH 0.5 MG X 11 & 1 MG X 42 TABS VARENICLINE TARTRATE Inactive ZITHROMAX 1 GM PACK DIRECTED ZITHROMAX 1 GM PACK 129152 AZITHROMYCIN Inactive MOBIC 7.5 MG TABS 1 tablet by mouthonce a day MOBIC 7.5 MG TABS 137585 MELOXICAM Inactive KLONOPIN 0.5 MG TABS 1 TABLET PO PRN KLONOPIN 0.5 MG TABS 571833 CLONAZEPAM Inactive CIPRO 500 MG TAB 1 tablet by mouth twice daily CIPRO 500 MG TAB 860781 CIPROFLOXACIN HCL Inactive AZITHROMYCIN 500 MG TABS 1 PO q day x 6 days AZITHROMYCIN 500 MG TABS 3571882 AZITHROMYCIN Inactive CYCLOBENZAPRINE HCL 10 MG TABS 1 PO q 8 hrs PRN muscle spasm 2012 CYCLOBENZAPRINE HCL 10 MG TABS 996018 CYCLOBENZAPRINE HCL Inactive METFORMIN HCL 500 MG [...] bid prn anxiety. XANAX 0.25 MG TABS 954570 ALPRAZOLAM Inactive LAMISIL AT 1 % CREA apply bid to rash LAMISIL AT 1 % CREA 369370 TERBINAFINE HCL Inactive TOPAMAX 25 MG TABS 1 tab po qhs x 1 week, then take 2 tabs po qhs TOPAMAX 25 MG TABS 885080 TOPIRAMATE Inactive ZITHROMAX 250 MG TAB 2 po today, then 1 po q days 2-5 ZITHROMAX 250 MG TAB 6089079 AZITHROMYCIN Inactive ZITHROMAX 250 MG TAB 2 po today, then 1 po q days 2-5 ZITHROMAX 250 MG TAB 2878410 AZITHROMYCIN Inactive PREDNISONE 20 MG TAB 2 tabs daily for 3 days, 1 tab daily for 3 days, 1/2 tab daily for 2 days PREDNISONE 20 MG TAB 346787 PREDNISONE Inactive PREDNISONE 20 MG TAB 3 tabs daily for 3 days, 2 tab daily for 3 days, 1 tab daily for 2 days, then 1/2 tab dialy for 2 days PREDNISONE 20 MG TAB 455061 PREDNISONE Inactive OMEPRAZOLE 20 MG CPDR 1 tablet by mouth daily OMEPRAZOLE 20 MG CPDR 701831 OMEPRAZOLE Inactive PREDNISONE 20 MG TABS 3 qd x 2d, 2 qd x 2d, 1 qd x 2d, 1/2 qd x 2d PREDNISONE 20 MG TABS 512062 PREDNISONE Inactive TERBINAFINE HCL 250 MG TABS 1 qDay TERBINAFINE HCL 250 MG TABS 075626 TERBINAFINE HCL Inactive Advance Directives Directive Description Start Date NO HEROIC MEASURES Immunizations Vaccine Administration Date Value Standard Description Boostrix (Tetanus toxoid, reduced diphtheria toxoid and acellular pertussis vaccine, adsorbed), booster Boostrix [[id number]] tetanus toxoid, reduced diphtheria toxoid, and acellular [...] pressure, diastolic - 8462-4 80 mm[Hg] BP aguill[place] blood pressure, systolic - 8480-6 138 mm[Hg] [...] E&M - 3141-9 226.38 [lb_av] Weight Measured blood pressure, diastolic - 8462-4 82 mm[Hg] BP agu[place] blood pressure, systolic - 8480-6 139 mm[Hg] BP sys height E&M - 8302-2 64 [in_us] Bdy height pulse rate E&M - 8867-4 97 /min Heart rate temperature E&M 97.7 [degF] Body temperature weight E&M - 3141-9 224 [lb_av] Weight Measured blood pressure, diastolic - 8462-4 92 mm[Hg] BP [place] blood pressure, systolic - 8480-6 140 mm[Hg] BP sys height E&M - 8302-2 64 [in_us] Bdy height pulse rate E&M - 8867-4 116 /min Heart rate temperature E&M 98.6 [degF] Body temperature weight E&M - 3141-9 222 [lb_av] Weight Measured Diagnostic Results Date Name Value Unit Range Description Lab Report: CBC, HGBA1C, Comp. Metabolic Panel - Chemistry hemoglobin A1C, blood, as % of total hemoglobin 5.3 % 4.3-6.0 sodium, serum 139 mmol/L 527-662 7725/02/24 potassium, serum 4.4 mmol/L 3.5-5.2 chloride, serum [...] Panel - Chemistry cholesterol, serum 118 mg/dL 884-644 3079/02/24 triglyceride, serum, fasting 141 mg/dL 30-200 HDL cholesterol, serum 20 mg/dL 32-96 LDL cholesterol, serum 70 mg/dL 0-130 Office Visit: Consult infertility - Chemistry human chorionic gonadotropin, urine, qualitative (urine test) Negative Encounters Code Encounter Date Provider Facility CPT-90052 Level 3 Est. Patient 14:54:10 CDT Ian Valdez MD [facility] CPT-78624 Level 4 Est. Patient 20:36:52 CDT Ian Valdez MD [facility] CPT-08221 Level 4 Est. Patient 11:14:30 DISTRICT LEADER Ian Valdez MD [facility]-44442 Level 3 Est. Patient 19:08:34 DISTRICT LEADER Ian Valdez MD [facility]-47254 Level 3 Est. Patient 13:17:39 DISTRICT LEADER Ian Valdez MD [facility]-44653 Level 4 Est. Patient 18:56:10 CDT Ian Valdez MD [facility]-30083 Level 4 Est. Patient 16:55:56 CDT Ian Valdez MD [facility]-28559 Level 3 Est. Patient 11:27:07 CDT Ian Valdez MD [facility]-89606 Level 3 Est. Patient 15:17:44 CDT Law Rosas [facility] CPT-95725 Level 4 Est. Patient 15:13:53 CDT Wellington Muniz [facility] CPT-88228 Level 3 Est. Patient 14:25:12 DISTRICT LEADER Ian Valdez MD [facility]-36392 Level 3 Est. Patient 10:24:46 CDT Ian Valdez MD [facility]-19608 Level 3 Est. Patient 15:34:19 CDT Ian Valdez MD [facility]-40483 Level 3 Est. Patient 14:22:41 CDT Ian Valdez MD [facility]-89017 Level 3 Est. Patient 15:07:22 DISTRICT LEADER Ian Valdez MD [facility] CPT-26189 Level 3 New Patient 09:06:43 DISTRICT LEADER Ian Valdez MD [facility]-45470 Level 3 Est. Patient 15:09:00 DISTRICT LEADER Ian Valdez MD [facility] Procedures Code Procedure Name Date Entry Date Standard Description CPT-OV Office Visit 15:19:52 CDT CPT-OV Office Visit 10:41:01 CDT CPT-04079 Core biop breast wo imaging 16:50:06 CDT CPT-OV Office Visit 16:50:05 CDT CPT-45048 UHCG (floor use only) 13:39:36 CDT CPT-62449 Nexplanon Placement 10:11:48 CDT CPT-J7307 Nexplanon (Implant) 10:11:48 CDT CPT-OV Office Visit 09:54:18 CDT CPT-99282 EKG Trac and Interp 16:50:19 CDT CPT-77601 Venipuncture Draw Fee 15:06:08 CDT CPT-J2930 Solu Medrol 125 mg (Methyl Prednisolone Sodium Succinate) 12:44:46 CDT CPT-J1055 Depo Provera 150 mg (Medroxyprogesterone) 12:44:46 CDT CPT-57918 Abx/Therapy Injection 12:44:46 CDT CPT-J1055 Depo Provera 150 mg (Medroxyprogesterone) 14:28:41 CDT CPT-J2930 Solu Medrol 125 mg (Methyl Prednisolone Sodium Succinate) 14:22:41 CDT CPT-85354 Administration single or combination vaccine inc oral 10 :08:06 CDT CPT-21887 Tdap 10:08:06 CDT CPT-G0402 Wlcm To Medicare Ex 22:17:30 CDT CPT-32932 Venipuncture Draw Fee 10:33:07 DISTRICT LEADER CPT-10735 Venipuncture Draw Fee 10:17:37 DISTRICT LEADER CPT-G0403 EKG Wlc To Medicare 22:17:30 CDT
--- OUTSIDE RECORDS SUMMARY | 2018-07-17 21:44 | XMS REPORT | Clinical Summary ---
Author Author Admin, ARIAN Organization 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 ALPRAZOLAM 22570035142 No Longer Active Ian Valdez MD Active FISH OIL 1000 MG CAPS 2 caps PO once daily at bedtime OMEGA-3 FATTY ACIDS 93732108352 No Longer Active Ian Valdez MD Active KLOR-CON M20 20 MEQ CR-TABS take 1 tab po qday with lasix POTASSIUM CHLORIDE GALILEO CR 75873945248 Active Ian Valdez MD Active LASIX 20 MG TAB 1 tablet by mouth daily prn swelling FUROSEMIDE 04686645044 Active Ian Valdez MD Active FLONASE 50 MCG/ACT SUSP 2 puffs in each nostril once daily at bedtime FLUTICASONE PROPIONATE 46308267259 Active Ian Valdez MD Active [facility] MELATONIN 3 MG TABS 2 tabs PO at bedtime MELATONIN 41742902993 Active Ian Valdez MD Active PULMICORT FLEXHALER 180 MCG/ACT AEPB 2 INH BID BUDESONIDE 45082553320 No Longer Active Ian Valdez MD Active METFORMIN HCL 500 MG TB24 1 TAB PO Q HS METFORMIN HCL 35439961984 No Longer Active Ian Valdez MD Active CYCLOBENZAPRINE HCL 10 MG TABS 1 PO q 8 hrs PRN muscle spasm 2012 CYCLOBENZAPRINE HCL 89629694841 No Longer Active Ian Valdez MD Active AZITHROMYCIN 500 MG TABS 1 PO q day x 6 days AZITHROMYCIN 13749186691 No Longer Active Ian Valdez MD Active CIPRO 500 MG TAB 1 tablet by mouth twice daily CIPROFLOXACIN HCL 68131928089 No Longer Active Ian Valdez MD Active PREDNISONE 20 MG TABS 3 qd x 2d, 2 qd x 2d, 1 qd x 2d, 1/2 qd x 2d PREDNISONE 71761421584 No Longer Active Law FIGUEROA Active CELEXA 40 MG TABS 2 PO DAILY CITALOPRAM HYDROBROMIDE 62768003652 Active Ian Valdez MD Active OMEPRAZOLE 20 MG CPDR 1 tablet by mouth daily OMEPRAZOLE 84386146907 No Longer Active [place] FIGUEROA Active KLONOPIN 0.5 MG TABS 1 TABLET PO PRN CLONAZEPAM 79753887738 No Longer Active [place] FIGUEROA Active MOBIC 7.5 MG TABS 1 tablet by mouthonce a day MELOXICAM 07085073173 No Longer Active Wellington FIGUEROA Active ZITHROMAX 1 GM PACK DIRECTED AZITHROMYCIN 68580820917 No Longer Active Ian Valdez MD Active ALBUTEROL SULFATE 0.083 % NEBU SOLN one vial per nebulizer every 4-6 hours as needed ALBUTEROL SULFATE 02268439893 Active Ian Valdez MD Active CHANTIX STARTING MONTH REBEKAH 0.5 MG X 11 & 1 MG X 42 TABS 0.5mg daily for 3 days , then 0.5mg BID for 4 days, then 1mg BID VARENICLINE TARTRATE 35739618748 No Longer Active Ian Valdez MD Active ZITHROMAX 1 GM PACK DIRECTED AZITHROMYCIN 06989729738 No Longer Active Ian Valdez MD Active AURALGAN 1.4-5.5 % SOLN BENZOCAINE-ANTIPYRINE 01823049801 No Longer Active Ian Valdez MD Active PREDNISONE 20 MG TAB 3 tabs daily for 3 days, 2 tab daily for 3 days, 1 tab daily for 2 days, then 1/2 tab dialy for 2 days PREDNISONE 26500013848 No Longer Active Ian Valdez MD Active SIMVASTATIN 40 MG TABS 1 TABLET PO Q HS SIMVASTATIN 51057502940 Active Ian Valdez MD Active SIMVASTATIN 80 MG TABS Take one by mouth daily SIMVASTATIN 06433867749 No Longer Active Ian Valdez MD Active PREDNISONE 20 MG TAB 2 tabs daily for 3 days, 1 tab daily for 3 days, 1/2 tab daily for 2 days PREDNISONE 00063830598 No Longer Active Ian Valdez MD Active ZITHROMAX 250 MG TAB 2 po today, then 1 po q days 2-5 AZITHROMYCIN 54485765850 No Longer Active Ian Valdez MD Active TRAZODONE HCL 100 MG TABS 2 TABS PO Q HS TRAZODONE HCL 62652707741 Active Ian Valdez MD Active ZITHROMAX 250 MG TAB 2 po today, then 1 po q days 2-5 AZITHROMYCIN 86735403959 No Longer Active Ian Valdez MD Active SIMVASTATIN 80 MG TABS Take one by mouth daily SIMVASTATIN 80 MG TABS 738913 SIMVASTATIN Inactive AURALGAN 1.4-5.5 % SOLN AURALGAN 1.4-5.5 % SOLN 0311877 BENZOCAINE-ANTIPYRINE Inactive ZITHROMAX 1 GM PACK DIRECTED ZITHROMAX 1 GM PACK 306380 AZITHROMYCIN Inactive CHANTIX STARTING MONTH REBEKAH 0.5 MG X 11 & 1 MG X 42 TABS 0.5mg daily for 3 days , then 0.5mg BID for 4 days, then 1mg BID CHANTIX STARTING MONTH REBEKAH 0.5 MG X 11 & 1 MG X 42 TABS VARENICLINE TARTRATE Inactive ZITHROMAX 1 GM PACK DIRECTED ZITHROMAX 1 GM PACK 753566 AZITHROMYCIN Inactive MOBIC 7.5 MG TABS 1 tablet by mouthonce a day MOBIC 7.5 MG TABS 488458 MELOXICAM Inactive KLONOPIN 0.5 MG TABS 1 TABLET PO PRN KLONOPIN 0.5 MG TABS 193494 CLONAZEPAM Inactive CIPRO 500 MG TAB 1 tablet by mouth twice daily CIPRO 500 MG TAB 202072 CIPROFLOXACIN HCL Inactive AZITHROMYCIN 500 MG TABS 1 PO q day x 6 days AZITHROMYCIN 500 MG TABS 5914900 AZITHROMYCIN Inactive CYCLOBENZAPRINE HCL 10 MG TABS 1 PO q 8 hrs PRN muscle spasm 2012 CYCLOBENZAPRINE HCL 10 MG TABS 072574 CYCLOBENZAPRINE HCL Inactive METFORMIN HCL 500 MG [...] bid prn anxiety. XANAX 0.25 MG TABS 006413 ALPRAZOLAM Inactive ZITHROMAX 250 MG TAB 2 po today, then 1 po q days 2-5 ZITHROMAX 250 MG TAB 0058903 AZITHROMYCIN Inactive ZITHROMAX 250 MG TAB 2 po today, then 1 po q days 2-5 ZITHROMAX 250 MG TAB 5865769 AZITHROMYCIN Inactive PREDNISONE 20 MG TAB 2 tabs daily for 3 days, 1 tab daily for 3 days, 1/2 tab daily for 2 days PREDNISONE 20 MG TAB 529861 PREDNISONE Inactive PREDNISONE 20 MG TAB 3 tabs daily for 3 days, 2 tab daily for 3 days, 1 tab daily for 2 days, then 1/2 tab dialy for 2 days PREDNISONE 20 MG TAB 851289 PREDNISONE Inactive OMEPRAZOLE 20 MG CPDR 1 tablet by mouth daily OMEPRAZOLE 20 MG CPDR 935010 OMEPRAZOLE Inactive PREDNISONE 20 MG TABS 3 qd x 2d, 2 qd x 2d, 1 qd x 2d, 1/2 qd x 2d PREDNISONE 20 MG TABS 673276 PREDNISONE Inactive TERBINAFINE HCL 250 MG TABS 1 qDay TERBINAFINE HCL 250 MG TABS 760621 TERBINAFINE HCL Inactive Advance Directives Directive Description Start Date NO HEROIC MEASURES Immunizations Vaccine Administration Date Value Standard Description Combined Trcaasxxnf-Vdtxrmx-utmupkflt Pertussis (dTpa) Vaccine - Booster 07/05 Boostrix [[id number]] tetanus toxoid, reduced diphtheria toxoid, and acellular [...] Panel - Chemistry sodium, serum 137 mmol/L 139-356 6634/07/25 potassium, serum 3.7 mmol/L 3.5-5.2 chloride, serum 102 mmol/L 98-107 carbon dioxide, venous blood 27.3 mmol/L 21.0-32.0 blood glucose 85 mg/dL 65-110 calcium, serum 8.5 mg/dL 8.5-10.1 urea nitrogen, blood 7 mg/dL 7-18 creatinine, serum 0.80 mg/dL 0.60-1.30 Lab Report: CBC, HGBA1C, Comp. Metabolic Panel - Chemistry hemoglobin A1C, blood, as % of total hemoglobin 5.3 % 4.3-6.0 sodium, serum 139 mmol/L 629-454 1035/02/24 potassium, serum 4.4 mmol/L 3.5-5.2 chloride, serum [...] Panel - Chemistry cholesterol, serum 118 mg/dL 055-970 4242/02/24 triglyceride, serum, fasting 141 mg/dL 30-200 HDL cholesterol, serum 20 mg/dL 32-96 LDL cholesterol, serum 70 mg/dL 0-130 Lab Report: Lipid Panel, Comp. Metabolic Panel, MICROALBUMIN, HGBA1C - Chemistry cholesterol, serum 172 mg/dL 118-116 9838/08/16 triglyceride, serum, fasting 267 mg/dL 30-200 HDL cholesterol, serum 22 mg/dL 32-96 LDL cholesterol, serum 97 mg/dL 0-130 sodium, serum 141 mmol/L 635-979 5405/08/16 potassium, serum 4.2 mmol/L 3.5-5.2 chloride, serum [...] Negative Encounters Code Encounter Date Provider Facility CPT-10056 Level 3 Est. Patient 14:54:10 CDT Ian Valdez MD [facility] CPT-18077 Level 4 Est. Patient 20:36:52 CDT Ian Valdez MD [facility] CPT-31802 Level 4 Est. Patient 11:14:30 DAT INSTRUCTOR Ian Valdez MD [facility] CPT-17894 Level 3 Est. Patient 19:08:34 DAT INSTRUCTOR Ian Valdez MD [facility] CPT-31703 Level 3 Est. Patient 13:17:39 DAT INSTRUCTOR Ian Valdez MD [facility] CPT-95627 Level 4 Est. Patient 18:56:10 CDT Ian Valdez MD [facility] CPT-06980 Level 4 Est. Patient 16:55:56 CDT Ian Valdez MD [facility] CPT-48306 Level 3 Est. Patient 11:27:07 CDT Ian Valdez MD [facility] CPT-72940 Level 3 Est. Patient 15:17:44 CDT Law Rosas [facility] CPT-83601 Level 4 Est. Patient 15:13:53 CDT Wellington Muniz PA [facility] CPT-47199 Level 3 Est. Patient 14:25:12 DAT INSTRUCTOR Ian Valdez MD [facility] CPT-51418 Level 3 Est. Patient 10:24:46 CDT Ian Valdez MD [facility] CPT-40964 Level 3 Est. Patient 15:34:19 CDT Ian Valdez MD [facility] CPT-99761 Level 3 Est. Patient 14:22:41 CDT Ian Valdez MD [facility] CPT-01457 Level 3 Est. Patient 15:07:22 DAT INSTRUCTOR Ian Valdez MD [facility] CPT-70700 Level 3 New Patient 09:06:43 DAT INSTRUCTOR Ian Valdez MD [facility] CPT-74328 Level 3 Est. Patient 15:09:00 DAT INSTRUCTOR Ian Valdez MD [facility] Procedures Code Procedure Name Date Entry Date Standard Description CPT-49028 UHCG (floor use only) 13:39:36 CDT CPT-34341 Nexplanon Placement 10:11:48 CDT CPT-J7307 Nexplanon (Implant) 10:11:48 CDT CPT-OV Office Visit 09:54:18 CDT CPT-19415 EKG Trac and Interp 16:50:19 CDT CPT-73254 Venipuncture Draw Fee 15:06:08 CDT CPT-J2930 Solu Medrol 125 mg (Methyl Prednisolone Sodium Succinate) 12:44:46 CDT CPT-J1055 Depo Provera 150 mg (Medroxyprogesterone) 12:44:46 CDT CPT-88683 Abx/Therapy Injection 12:44:46 CDT CPT-J1055 Depo Provera 150 mg (Medroxyprogesterone) 14:28:41 CDT CPT-J2930 Solu Medrol 125 mg (Methyl Prednisolone Sodium Succinate) 14:22:41 CDT CPT-01198 Administration single or combination vaccine inc oral 10 :08:06 CDT CPT-08438 Tdap 10:08:06 CDT CPT-G0402 Wlcm To Medicare Ex 22:17:30 CDT CPT-44372 Venipuncture Draw Fee 10:33:07 DAT INSTRUCTOR CPT-24552 Venipuncture Draw Fee 10:17:37 DAT INSTRUCTOR CPT-G0403 EKG [facility] To Medicare 22:17:30 CDT
--- OUTSIDE RECORDS SUMMARY | 2018-07-17 21:45 | XMS REPORT | Clinical Summary ---
Author Author Admin, ARIAN Organization [facility] Address Unknown Phone Allergies, Adverse Reactions, Alerts [...] menstrual cycle ABDOMINAL CRAMPS 789.00 Resolved Ian aVldez MD Abdominal pain, unspecified site BRONCHITIS, ACUTE [...] CREA apply bid to rash TERBINAFINE HCL 96792790198 Active Ian Valdez MD Active TERBINAFINE HCL 250 MG TABS 1 qDay TERBINAFINE HCL 56938498686 No Longer Active Ian Valdez MD Active TOPAMAX 25 MG TABS 1 tab po qhs x 1 week, then take 2 tabs po qhs TOPIRAMATE 19958409841 Active Ian Valdez MD Active XANAX 0.25 MG TABS take 1 tab po bid prn anxiety. ALPRAZOLAM 43327055401 No Longer Active Ian Valdez MD Active FISH OIL 1000 MG CAPS 2 caps PO once daily at bedtime OMEGA-3 FATTY ACIDS 33095338235 No Longer Active Ian Valdez MD Active KLOR-CON M20 20 MEQ CR-TABS take 1 tab po qday with lasix POTASSIUM CHLORIDE GALILEO CR 09850410206 Active Ian Valdez MD Active LASIX 20 MG TAB 1 tablet by mouth daily prn swelling FUROSEMIDE 97211002244 Active Ian Valdez MD Active FLONASE 50 MCG/ACT SUSP 2 puffs in each nostril once daily at bedtime FLUTICASONE PROPIONATE 37546670652 Active Ian Valdez MD Active [facility] MELATONIN 3 MG TABS 2 tabs PO at bedtime MELATONIN 67077663770 Active Ian Valdez MD Active PULMICORT FLEXHALER 180 MCG/ACT AEPB 2 INH BID BUDESONIDE 87140943131 No Longer Active Ian Valdez MD Active METFORMIN HCL 500 MG TB24 1 TAB PO Q HS METFORMIN HCL 91813429125 No Longer Active Ian Valdez MD Active CYCLOBENZAPRINE HCL 10 MG TABS 1 PO q 8 hrs PRN muscle spasm 2012 CYCLOBENZAPRINE HCL 04150770360 No Longer Active Ian Valdez MD Active AZITHROMYCIN 500 MG TABS 1 PO q day x 6 days AZITHROMYCIN 79024200791 No Longer Active Ian Valdez MD Active CIPRO 500 MG TAB 1 tablet by mouth twice daily CIPROFLOXACIN HCL 49496390856 No Longer Active Ian Valdez MD Active PREDNISONE 20 MG TABS 3 qd x 2d, 2 qd x 2d, 1 qd x 2d, 1/2 qd x 2d PREDNISONE 22412606547 No Longer Active Law FIGUEROA Active CELEXA 40 MG TABS 2 PO DAILY CITALOPRAM HYDROBROMIDE 17008290139 Active Ian Valdez MD Active OMEPRAZOLE 20 MG CPDR 1 tablet by mouth daily OMEPRAZOLE 20943977260 No Longer Active [place] FIGUEROA Active KLONOPIN 0.5 MG TABS 1 TABLET PO PRN CLONAZEPAM 23434824981 No Longer Active [place] FIGUEROA Active MOBIC 7.5 MG TABS 1 tablet by mouthonce a day MELOXICAM 01405014746 No Longer Active [place] FIGUEROA Active ZITHROMAX 1 GM PACK DIRECTED AZITHROMYCIN 70173988513 No Longer Active Ian Valdez MD Active ALBUTEROL SULFATE 0.083 % NEBU SOLN one vial per nebulizer every 4-6 hours as needed ALBUTEROL SULFATE 19287735262 Active Ian Valdez MD Active CHANTIX STARTING MONTH REBEKAH 0.5 MG X 11 & 1 MG X 42 TABS 0.5mg daily for 3 days , then 0.5mg BID for 4 days, then 1mg BID VARENICLINE TARTRATE 61364403891 No Longer Active Ian Valdez MD Active ZITHROMAX 1 GM PACK DIRECTED AZITHROMYCIN 71105413851 No Longer Active Ian Valdez MD Active AURALGAN 1.4-5.5 % SOLN BENZOCAINE-ANTIPYRINE 00876233722 No Longer Active Ian Valdez MD Active PREDNISONE 20 MG TAB 3 tabs daily for 3 days, 2 tab daily for 3 days, 1 tab daily for 2 days, then 1/2 tab dialy for 2 days PREDNISONE 81224182065 No Longer Active Ian Valdez MD Active SIMVASTATIN 40 MG TABS 1 TABLET PO Q HS SIMVASTATIN 11464307594 Active Ian Valdez MD Active SIMVASTATIN 80 MG TABS Take one by mouth daily SIMVASTATIN 82332980012 No Longer Active Ian Valdez MD Active PREDNISONE 20 MG TAB 2 tabs daily for 3 days, 1 tab daily for 3 days, 1/2 tab daily for 2 days PREDNISONE 40221613356 No Longer Active Ian Valdez MD Active ZITHROMAX 250 MG TAB 2 po today, then 1 po q days 2-5 AZITHROMYCIN 66440161894 No Longer Active Ian Valdez MD Active TRAZODONE HCL 100 MG TABS 2 TABS PO Q HS TRAZODONE HCL 01797139076 Active Ian Valdez MD Active ZITHROMAX 250 MG TAB 2 po today, then 1 po q days 2-5 AZITHROMYCIN 60344875819 No Longer Active Ian Valdez MD Active SIMVASTATIN 80 MG TABS Take one by mouth daily SIMVASTATIN 80 MG TABS 442687 SIMVASTATIN Inactive AURALGAN 1.4-5.5 % SOLN AURALGAN 1.4-5.5 % SOLN 6132307 BENZOCAINE-ANTIPYRINE Inactive ZITHROMAX 1 GM PACK DIRECTED ZITHROMAX 1 GM PACK 889441 AZITHROMYCIN Inactive CHANTIX STARTING MONTH REBEKAH 0.5 MG X 11 & 1 MG X 42 TABS 0.5mg daily for 3 days , then 0.5mg BID for 4 days, then 1mg BID CHANTIX STARTING MONTH REBEKAH 0.5 MG X 11 & 1 MG X 42 TABS VARENICLINE TARTRATE Inactive ZITHROMAX 1 GM PACK DIRECTED ZITHROMAX 1 GM PACK 167636 AZITHROMYCIN Inactive MOBIC 7.5 MG TABS 1 tablet by mouthonce a day MOBIC 7.5 MG TABS 638934 MELOXICAM Inactive KLONOPIN 0.5 MG TABS 1 TABLET PO PRN KLONOPIN 0.5 MG TABS 086274 CLONAZEPAM Inactive CIPRO 500 MG TAB 1 tablet by mouth twice daily CIPRO 500 MG TAB 044512 CIPROFLOXACIN HCL Inactive AZITHROMYCIN 500 MG TABS 1 PO q day x 6 days AZITHROMYCIN 500 MG TABS 2740854 AZITHROMYCIN Inactive CYCLOBENZAPRINE HCL 10 MG TABS 1 PO q 8 hrs PRN muscle spasm 2012 CYCLOBENZAPRINE HCL 10 MG TABS 535301 CYCLOBENZAPRINE HCL Inactive METFORMIN HCL 500 MG [...] bid prn anxiety. XANAX 0.25 MG TABS 097469 ALPRAZOLAM Inactive ZITHROMAX 250 MG TAB 2 po today, then 1 po q days 2-5 ZITHROMAX 250 MG TAB 8682475 AZITHROMYCIN Inactive ZITHROMAX 250 MG TAB 2 po today, then 1 po q days 2-5 ZITHROMAX 250 MG TAB 3043492 AZITHROMYCIN Inactive PREDNISONE 20 MG TAB 2 tabs daily for 3 days, 1 tab daily for 3 days, 1/2 tab daily for 2 days PREDNISONE 20 MG TAB 628670 PREDNISONE Inactive PREDNISONE 20 MG TAB 3 tabs daily for 3 days, 2 tab daily for 3 days, 1 tab daily for 2 days, then 1/2 tab dialy for 2 days PREDNISONE 20 MG TAB 604021 PREDNISONE Inactive OMEPRAZOLE 20 MG CPDR 1 tablet by mouth daily OMEPRAZOLE 20 MG CPDR 051614 OMEPRAZOLE Inactive PREDNISONE 20 MG TABS 3 qd x 2d, 2 qd x 2d, 1 qd x 2d, 1/2 qd x 2d PREDNISONE 20 MG TABS 006329 PREDNISONE Inactive TERBINAFINE HCL 250 MG TABS 1 qDay TERBINAFINE HCL 250 MG TABS 485387 TERBINAFINE HCL Inactive Advance Directives Directive Description Start Date NO HEROIC MEASURES Immunizations Vaccine Administration Date Value Standard Description Combined Pxiiatseee-Xjidzhy-djniwqlzy Pertussis (dTpa) Vaccine - Booster 07/05 Boostrix [[id number]] tetanus toxoid, reduced diphtheria toxoid, and acellular [...] Panel - Chemistry sodium, serum 137 mmol/L 412-508 8913/07/25 potassium, serum 3.7 mmol/L 3.5-5.2 chloride, serum 102 mmol/L 98-107 carbon dioxide, venous blood 27.3 mmol/L 21.0-32.0 blood glucose 85 mg/dL 65-110 calcium, serum 8.5 mg/dL 8.5-10.1 urea nitrogen, blood 7 mg/dL 7-18 creatinine, serum 0.80 mg/dL 0.60-1.30 Lab Report: CBC, HGBA1C, Comp. Metabolic Panel - Chemistry hemoglobin A1C, blood, as % of total hemoglobin 5.3 % 4.3-6.0 sodium, serum 139 mmol/L 190-770 7880/02/24 potassium, serum 4.4 mmol/L 3.5-5.2 chloride, serum [...] Panel - Chemistry cholesterol, serum 118 mg/dL 896-886 2106/02/24 triglyceride, serum, fasting 141 mg/dL 30-200 HDL cholesterol, serum 20 mg/dL 32-96 LDL cholesterol, serum 70 mg/dL 0-130 Lab Report: Lipid Panel, Comp. Metabolic Panel, MICROALBUMIN, HGBA1C - Chemistry cholesterol, serum 172 mg/dL 182-729 4875/08/16 triglyceride, serum, fasting 267 mg/dL 30-200 HDL cholesterol, serum 22 mg/dL 32-96 LDL cholesterol, serum 97 mg/dL 0-130 sodium, serum 141 mmol/L 535-435 7587/08/16 potassium, serum 4.2 mmol/L 3.5-5.2 chloride, serum [...] Negative Encounters Code Encounter Date Provider Facility CPT-24327 Level 3 Est. Patient 14:54:10 CDT Ian Valdez MD [facility] CPT-93052 Level 4 Est. Patient 20:36:52 CDT Ian Valdez MD [facility] CPT-78271 Level 4 Est. Patient 11:14:30 NUISANCE WILDLIFE TRAPPER Ian Valdez MD [facility] CPT-02169 Level 3 Est. Patient 19:08:34 NUISANCE WILDLIFE TRAPPER Ian Valdez MD [facility] CPT-38103 Level 3 Est. Patient 13:17:39 NUISANCE WILDLIFE TRAPPER Ian Valdez MD [facility] CPT-97902 Level 4 Est. Patient 18:56:10 CDT Ian Valdez MD [facility] CPT-30444 Level 4 Est. Patient 16:55:56 CDT Ian Valdez MD [facility] CPT-31778 Level 3 Est. Patient 11:27:07 CDT Ian Valdez MD [facility] CPT-92314 Level 3 Est. Patient 15:17:44 CDT Law Rosas [facility] CPT-76159 Level 4 Est. Patient 15:13:53 CDT Wellington Muniz PA [facility] CPT-73511 Level 3 Est. Patient 14:25:12 NUISANCE WILDLIFE TRAPPER Ian Valdez MD [facility] CPT-08285 Level 3 Est. Patient 10:24:46 CDT Ian Valdez MD [facility] CPT-86657 Level 3 Est. Patient 15:34:19 CDT Ian Valdez MD [facility] CPT-69038 Level 3 Est. Patient 14:22:41 CDT Ian Valdez MD [facility] CPT-21493 Level 3 Est. Patient 15:07:22 NUISANCE WILDLIFE TRAPPER Ian Valdez MD [facility] CPT-23384 Level 3 New Patient 09:06:43 NUISANCE WILDLIFE TRAPPER Ian Valdez MD [facility] CPT-62602 Level 3 Est. Patient 15:09:00 NUISANCE WILDLIFE TRAPPER Ian Valdez MD [facility] Procedures Code Procedure Name Date Entry Date Standard Description CPT-56900 UHCG (floor use only) 13:39:36 CDT CPT-97757 Nexplanon Placement 10:11:48 CDT CPT-J7307 Nexplanon (Implant) 10:11:48 CDT CPT-OV Office Visit 09:54:18 CDT CPT-12451 EKG Trac and Interp 16:50:19 CDT CPT-74099 Venipuncture Draw Fee 15:06:08 CDT CPT-J2930 Solu Medrol 125 mg (Methyl Prednisolone Sodium Succinate) 12:44:46 CDT CPT-J1055 Depo Provera 150 mg (Medroxyprogesterone) 12:44:46 CDT CPT-69852 Abx/Therapy Injection 12:44:46 CDT CPT-J1055 Depo Provera 150 mg (Medroxyprogesterone) 14:28:41 CDT CPT-J2930 Solu Medrol 125 mg (Methyl Prednisolone Sodium Succinate) 14:22:41 CDT CPT-22376 Administration single or combination vaccine inc oral 10 :08:06 CDT CPT-23097 Tdap 10:08:06 CDT CPT-G0402 Wlcm To Medicare Ex 22:17:30 CDT CPT-19483 Venipuncture Draw Fee 10:33:07 NUISANCE WILDLIFE TRAPPER CPT-17433 Venipuncture Draw Fee 10:17:37 NUISANCE WILDLIFE TRAPPER CPT-G0403 EKG [facility] To Medicare 22:17:30 CDT
--- OUTSIDE RECORDS SUMMARY | 2018-07-17 21:46 | XMS REPORT ---
Author Author [facility] Medical Staff Organization [facility] Address [address] [place] [id number] Phone [phone] Care Team Providers Care Senior Interior Designer Name Role Phone FARHAD SETHI MD PP [phone] Summary purpose TRANSITION OF CARE AUTO GENERATION [...] Oral At Bed Time Current Patient recall Nasonex 50 mcg/actuation [place] 2 puff Nasl At Bed Time Discont Patient recall melatonin 3 mg tablet 2 tablet Oral At Bed Time Discont Lasix 20 mg tablet 1 tablet oral As Needed Current Patient medication list K-Dur 20 mEq tablet,extended release 1 tablet oral As Needed Current Patient medication list Topamax 25 mg tablet 2 tablet oral As Needed Discont Patient medication list melatonin 5 mg tablet [...] recorded for this patient visit. Functional status No functional or cognitive status observations are available for this visit. Vital signs Type Value Date Respiration Rate 24breaths per minute :10 Pulse 86beats per minute :10 Oxygen Saturation 99% :10 BP Systolic 130mmHg :10 BP Diastolic 79mmHg :10 Temperature 97.3F :10 Social history Type Value Smoking Status CURRENT EVERY DAY SMOKER Treatment Plan No treatment plan text is available for this visit. Hospital discharge instructions Dismissal Condition good Disposition on DC home DC Inst/Educ Give yes Med/Side Effects Rev yes
--- OUTSIDE RECORDS SUMMARY | 2018-07-17 21:47 | XMS REPORT | Clinical Summary ---
Author Author Admin, ARIAN Organization [facility] Address Unknown Phone Allergies, Adverse Reactions, [...] CREA apply bid to rash TERBINAFINE HCL 36517561985 Active Ian Valdez MD Active TERBINAFINE HCL 250 MG TABS 1 qDay TERBINAFINE HCL 58885077921 No Longer Active Ian Valdez MD Active TOPAMAX 25 MG TABS 1 tab po qhs x 1 week, then take 2 tabs po qhs TOPIRAMATE 65885125134 Active Ian Valdez MD Active XANAX 0.25 MG TABS take 1 tab po bid prn anxiety. ALPRAZOLAM 04242929846 No Longer Active Ian Valdez MD Active FISH OIL 1000 MG CAPS 2 caps PO once daily at bedtime OMEGA-3 FATTY ACIDS 09107140822 No Longer Active Ian Valdez MD Active KLOR-CON M20 20 MEQ CR-TABS take 1 tab po qday with lasix POTASSIUM CHLORIDE GALILEO CR 14242293806 Active Ian Valdez MD Active LASIX 20 MG TAB 1 tablet by mouth daily prn swelling FUROSEMIDE 28682650092 Active Ian Valdez MD Active FLONASE 50 MCG/ACT SUSP 2 puffs in each nostril once daily at bedtime FLUTICASONE PROPIONATE 49068834684 Active Ian Valdez MD Active CVS MELATONIN 3 MG TABS 2 tabs PO at bedtime MELATONIN 87394940069 Active Ian Valdez MD Active PULMICORT FLEXHALER 180 MCG/ACT AEPB 2 INH BID BUDESONIDE 81283279411 No Longer Active Ian Valdez MD Active METFORMIN HCL 500 MG TB24 1 TAB PO Q HS METFORMIN HCL 19942146492 No Longer Active Ian Valdez MD Active CYCLOBENZAPRINE HCL 10 MG TABS 1 PO q 8 hrs PRN muscle spasm 2012 CYCLOBENZAPRINE HCL 29154366274 No Longer Active Ian Valdez MD Active AZITHROMYCIN 500 MG TABS 1 PO q day x 6 days AZITHROMYCIN 45010899024 No Longer Active Ian Valdez MD Active CIPRO 500 MG TAB 1 tablet by mouth twice daily CIPROFLOXACIN HCL 06342009529 No Longer Active Ian Valdez MD Active PREDNISONE 20 MG TABS 3 qd x 2d, 2 qd x 2d, 1 qd x 2d, 1/2 qd x 2d PREDNISONE 62933998309 No Longer Active Law FIGUEROA Active CELEXA 40 MG TABS 2 PO DAILY CITALOPRAM HYDROBROMIDE 35032599297 Active Ian Valdez MD Active OMEPRAZOLE 20 MG CPDR 1 tablet by mouth daily OMEPRAZOLE 09667913897 No Longer Active [place] FIGUEROA Active KLONOPIN 0.5 MG TABS 1 TABLET PO PRN CLONAZEPAM 15679969145 No Longer Active [place] FIGUEROA Active MOBIC 7.5 MG TABS 1 tablet by mouthonce a day MELOXICAM 59833030280 No Longer Active Wellington FIGUEROA Active ZITHROMAX 1 GM PACK DIRECTED AZITHROMYCIN 86543865328 No Longer Active Ian Valdez MD Active ALBUTEROL SULFATE 0.083 % NEBU SOLN one vial per nebulizer every 4-6 hours as needed ALBUTEROL SULFATE 66522541474 Active Ian Valdez MD Active CHANTIX STARTING MONTH REBEKAH 0.5 MG X 11 & 1 MG X 42 TABS 0.5mg daily for 3 days , then 0.5mg BID for 4 days, then 1mg BID VARENICLINE TARTRATE 02250217968 No Longer Active Ian Valdez MD Active ZITHROMAX 1 GM PACK DIRECTED AZITHROMYCIN 85362873009 No Longer Active Ian Valdez MD Active AURALGAN 1.4-5.5 % SOLN BENZOCAINE-ANTIPYRINE 11159472612 No Longer Active Ian Valdez MD Active PREDNISONE 20 MG TAB 3 tabs daily for 3 days, 2 tab daily for 3 days, 1 tab daily for 2 days, then 1/2 tab dialy for 2 days PREDNISONE 64814517033 No Longer Active Ian Valdez MD Active SIMVASTATIN 40 MG TABS 1 TABLET PO Q HS SIMVASTATIN 27311891679 Active Ian Valdez MD Active SIMVASTATIN 80 MG TABS Take one by mouth daily SIMVASTATIN 75229118037 No Longer Active Ian Valdez MD Active PREDNISONE 20 MG TAB 2 tabs daily for 3 days, 1 tab daily for 3 days, 1/2 tab daily for 2 days PREDNISONE 01486687076 No Longer Active Ian Valdez MD Active ZITHROMAX 250 MG TAB 2 po today, then 1 po q days 2-5 AZITHROMYCIN 90357241125 No Longer Active Ian Valdez MD Active TRAZODONE HCL 100 MG TABS 2 TABS PO Q HS TRAZODONE HCL 65691093757 Active Ian Valdez MD Active ZITHROMAX 250 MG TAB 2 po today, then 1 po q days 2-5 AZITHROMYCIN 70528063444 No Longer Active Ian Valdez MD Active SIMVASTATIN 80 MG TABS Take one by mouth daily SIMVASTATIN 80 MG TABS 089216 SIMVASTATIN Inactive AURALGAN 1.4-5.5 % SOLN AURALGAN 1.4-5.5 % SOLN 0839311 BENZOCAINE-ANTIPYRINE Inactive ZITHROMAX 1 GM PACK DIRECTED ZITHROMAX 1 GM PACK 227097 AZITHROMYCIN Inactive CHANTIX STARTING MONTH REBEKAH 0.5 MG X 11 & 1 MG X 42 TABS 0.5mg daily for 3 days , then 0.5mg BID for 4 days, then 1mg BID CHANTIX STARTING MONTH REBEKAH 0.5 MG X 11 & 1 MG X 42 TABS VARENICLINE TARTRATE Inactive ZITHROMAX 1 GM PACK DIRECTED ZITHROMAX 1 GM PACK 925672 AZITHROMYCIN Inactive MOBIC 7.5 MG TABS 1 tablet by mouthonce a day MOBIC 7.5 MG TABS 387520 MELOXICAM Inactive KLONOPIN 0.5 MG TABS 1 TABLET PO PRN KLONOPIN 0.5 MG TABS 502783 CLONAZEPAM Inactive CIPRO 500 MG TAB 1 tablet by mouth twice daily CIPRO 500 MG TAB 140235 CIPROFLOXACIN HCL Inactive AZITHROMYCIN 500 MG TABS 1 PO q day x 6 days AZITHROMYCIN 500 MG TABS 3665063 AZITHROMYCIN Inactive CYCLOBENZAPRINE HCL 10 MG TABS 1 PO q 8 hrs PRN muscle spasm 2012 CYCLOBENZAPRINE HCL 10 MG TABS 048082 CYCLOBENZAPRINE HCL Inactive METFORMIN HCL 500 MG [...] bid prn anxiety. XANAX 0.25 MG TABS 953322 ALPRAZOLAM Inactive ZITHROMAX 250 MG TAB 2 po today, then 1 po q days 2-5 ZITHROMAX 250 MG TAB 1176673 AZITHROMYCIN Inactive ZITHROMAX 250 MG TAB 2 po today, then 1 po q days 2-5 ZITHROMAX 250 MG TAB 0298212 AZITHROMYCIN Inactive PREDNISONE 20 MG TAB 2 tabs daily for 3 days, 1 tab daily for 3 days, 1/2 tab daily for 2 days PREDNISONE 20 MG TAB 264267 PREDNISONE Inactive PREDNISONE 20 MG TAB 3 tabs daily for 3 days, 2 tab daily for 3 days, 1 tab daily for 2 days, then 1/2 tab dialy for 2 days PREDNISONE 20 MG TAB 834508 PREDNISONE Inactive OMEPRAZOLE 20 MG CPDR 1 tablet by mouth daily OMEPRAZOLE 20 MG CPDR 380655 OMEPRAZOLE Inactive PREDNISONE 20 MG TABS 3 qd x 2d, 2 qd x 2d, 1 qd x 2d, 1/2 qd x 2d PREDNISONE 20 MG TABS 932880 PREDNISONE Inactive TERBINAFINE HCL 250 MG TABS 1 qDay TERBINAFINE HCL 250 MG TABS 026530 TERBINAFINE HCL Inactive Advance Directives Directive Description Start Date NO HEROIC MEASURES Immunizations Vaccine Administration Date Value Standard Description Combined Vaphwbhglp-Xkmlrqh-wcoswuqjw Pertussis (dTpa) Vaccine - Booster 07/05 Boostrix [[id number]] tetanus toxoid, reduced diphtheria toxoid, and acellular [...] Panel - Chemistry sodium, serum 137 mmol/L 256-743 1725/07/25 potassium, serum 3.7 mmol/L 3.5-5.2 chloride, serum 102 mmol/L 98-107 carbon dioxide, venous blood 27.3 mmol/L 21.0-32.0 blood glucose 85 mg/dL 65-110 calcium, serum 8.5 mg/dL 8.5-10.1 urea nitrogen, blood 7 mg/dL 7-18 creatinine, serum 0.80 mg/dL 0.60-1.30 Lab Report: CBC, HGBA1C, Comp. Metabolic Panel - Chemistry hemoglobin A1C, blood, as % of total hemoglobin 5.3 % 4.3-6.0 sodium, serum 139 mmol/L 106-557 1344/02/24 potassium, serum 4.4 mmol/L 3.5-5.2 chloride, serum [...] Panel - Chemistry cholesterol, serum 118 mg/dL 825-685 8733/02/24 triglyceride, serum, fasting 141 mg/dL 30-200 HDL cholesterol, serum 20 mg/dL 32-96 LDL cholesterol, serum 70 mg/dL 0-130 Lab Report: Lipid Panel, Comp. Metabolic Panel, MICROALBUMIN, HGBA1C - Chemistry cholesterol, serum 172 mg/dL 415-598 3858/08/16 triglyceride, serum, fasting 267 mg/dL 30-200 HDL cholesterol, serum 22 mg/dL 32-96 LDL cholesterol, serum 97 mg/dL 0-130 sodium, serum 141 mmol/L 137-847 7242/08/16 potassium, serum 4.2 mmol/L 3.5-5.2 chloride, serum [...] Negative Encounters Code Encounter Date Provider Facility CPT-80870 Level 3 Est. Patient 14:54:10 CDT Ian Valdez MD [facility] CPT-66969 Level 4 Est. Patient 20:36:52 CDT Ian Valdez MD [facility] CPT-36121 Level 4 Est. Patient 11:14:30 DESIGNER AND PATTERNMAKER Ian Valdez MD [facility] CPT-09088 Level 3 Est. Patient 19:08:34 DESIGNER AND PATTERNMAKER Ian Valdez MD [facility] CPT-53145 Level 3 Est. Patient 13:17:39 DESIGNER AND PATTERNMAKER Ian Valdez MD [facility] CPT-65804 Level 4 Est. Patient 18:56:10 CDT Ian Valdez MD [facility] CPT-55162 Level 4 Est. Patient 16:55:56 CDT Ian Valdez MD [facility] CPT-51113 Level 3 Est. Patient 11:27:07 CDT Ian Valdez MD [facility] CPT-11532 Level 3 Est. Patient 15:17:44 CDT Law Rosas [facility] CPT-63327 Level 4 Est. Patient 15:13:53 CDT Wellington Muniz PA [facility] CPT-75370 Level 3 Est. Patient 14:25:12 DESIGNER AND PATTERNMAKER Ian Valdez MD [facility] CPT-86761 Level 3 Est. Patient 10:24:46 CDT Ian Valdez MD [facility] CPT-72846 Level 3 Est. Patient 15:34:19 CDT Ian Valdez MD [facility] CPT-80402 Level 3 Est. Patient 14:22:41 CDT Ian Valdez MD [facility] CPT-29517 Level 3 Est. Patient 15:07:22 DESIGNER AND PATTERNMAKER Ian Valdez MD [facility] CPT-70606 Level 3 New Patient 09:06:43 DESIGNER AND PATTERNMAKER Ian Valdez MD [facility] CPT-56754 Level 3 Est. Patient 15:09:00 DESIGNER AND PATTERNMAKER Ian Valdez MD [facility] Procedures Code Procedure Name Date Entry Date Standard Description CPT-13917 UHCG (floor use only) 13:39:36 CDT CPT-63089 Nexplanon Placement 10:11:48 CDT CPT-J7307 Nexplanon (Implant) 10:11:48 CDT CPT-OV Office Visit 09:54:18 CDT CPT-75105 EKG Trac and Interp 16:50:19 CDT CPT-97595 Venipuncture Draw Fee 15:06:08 CDT CPT-J2930 Solu Medrol 125 mg (Methyl Prednisolone Sodium Succinate) 12:44:46 CDT CPT-J1055 Depo Provera 150 mg (Medroxyprogesterone) 12:44:46 CDT CPT-28911 Abx/Therapy Injection 12:44:46 CDT CPT-J1055 Depo Provera 150 mg (Medroxyprogesterone) 14:28:41 CDT CPT-J2930 Solu Medrol 125 mg (Methyl Prednisolone Sodium Succinate) 14:22:41 CDT CPT-35964 Administration single or combination vaccine inc oral 10 :08:06 CDT CPT-74439 Tdap 10:08:06 CDT CPT-G0402 Wlcm To Medicare Ex 22:17:30 CDT CPT-59067 Venipuncture Draw Fee 10:33:07 DESIGNER AND PATTERNMAKER CPT-17188 Venipuncture Draw Fee 10:17:37 DESIGNER AND PATTERNMAKER CPT-G0403 EKG [facility] To Medicare 22:17:30 CDT
--- OUTSIDE RECORDS SUMMARY | 2018-07-17 21:48 | XMS REPORT | Clinical Summary ---
Author Author Admin, ARIAN Organization [facility] Address Unknown Phone Allergies, Adverse Reactions, Alerts [...] CREA apply bid to rash TERBINAFINE HCL 94367891236 Active Ian Valdez MD Active TERBINAFINE HCL 250 MG TABS 1 qDay TERBINAFINE HCL 46281626842 No Longer Active Ian Valdez MD Active TOPAMAX 25 MG TABS 1 tab po qhs x 1 week, then take 2 tabs po qhs TOPIRAMATE 93417095219 Active Ian Valdez MD Active XANAX 0.25 MG TABS take 1 tab po bid prn anxiety. ALPRAZOLAM 89631997488 No Longer Active Ian Valdez MD Active FISH OIL 1000 MG CAPS 2 caps PO once daily at bedtime OMEGA-3 FATTY ACIDS 36954083581 No Longer Active Ian Valdez MD Active KLOR-CON M20 20 MEQ CR-TABS take 1 tab po qday with lasix POTASSIUM CHLORIDE GALILEO CR 46779580112 Active Ian Valdez MD Active LASIX 20 MG TAB 1 tablet by mouth daily prn swelling FUROSEMIDE 43305266586 Active Ian Valdez MD Active FLONASE 50 MCG/ACT SUSP 2 puffs in each nostril once daily at bedtime FLUTICASONE PROPIONATE 57544114348 Active Ian Valdez MD Active [facility]S MELATONIN 3 MG TABS 2 tabs PO at bedtime MELATONIN 14993871143 Active Ian Valdez MD Active PULMICORT FLEXHALER 180 MCG/ACT AEPB 2 INH BID BUDESONIDE 67038973710 No Longer Active Ian Valdez MD Active METFORMIN HCL 500 MG TB24 1 TAB PO Q HS METFORMIN HCL 51518188352 No Longer Active Ian Valdez MD Active CYCLOBENZAPRINE HCL 10 MG TABS 1 PO q 8 hrs PRN muscle spasm 2012 CYCLOBENZAPRINE HCL 65248526990 No Longer Active Ian Valdez MD Active AZITHROMYCIN 500 MG TABS 1 PO q day x 6 days AZITHROMYCIN 93310644591 No Longer Active Ian Valdez MD Active CIPRO 500 MG TAB 1 tablet by mouth twice daily CIPROFLOXACIN HCL 18738191714 No Longer Active Ian Valdez MD Active PREDNISONE 20 MG TABS 3 qd x 2d, 2 qd x 2d, 1 qd x 2d, 1/2 qd x 2d PREDNISONE 01975937820 No Longer Active Law FIGUEROA Active CELEXA 40 MG TABS 2 PO DAILY CITALOPRAM HYDROBROMIDE 47055766585 Active Ian Valdez MD Active OMEPRAZOLE 20 MG CPDR 1 tablet by mouth daily OMEPRAZOLE 61572786017 No Longer Active [place] FIGUEROA Active KLONOPIN 0.5 MG TABS 1 TABLET PO PRN CLONAZEPAM 48016378966 No Longer Active [place] FIGUEROA Active MOBIC 7.5 MG TABS 1 tablet by mouthonce a day MELOXICAM 79941661691 No Longer Active [place] FIGUEROA Active ZITHROMAX 1 GM PACK DIRECTED AZITHROMYCIN 31358914415 No Longer Active Ian Valdez MD Active ALBUTEROL SULFATE 0.083 % NEBU SOLN one vial per nebulizer every 4-6 hours as needed ALBUTEROL SULFATE 15255160123 Active Ian Valdez MD Active CHANTIX STARTING MONTH REBEKAH 0.5 MG X 11 & 1 MG X 42 TABS 0.5mg daily for 3 days , then 0.5mg BID for 4 days, then 1mg BID VARENICLINE TARTRATE 39399716235 No Longer Active Ian Valdez MD Active ZITHROMAX 1 GM PACK DIRECTED AZITHROMYCIN 29667205186 No Longer Active Ian Valdez MD Active AURALGAN 1.4-5.5 % SOLN BENZOCAINE-ANTIPYRINE 73530990405 No Longer Active Ian Valdez MD Active PREDNISONE 20 MG TAB 3 tabs daily for 3 days, 2 tab daily for 3 days, 1 tab daily for 2 days, then 1/2 tab dialy for 2 days PREDNISONE 18341170596 No Longer Active Ian Valdez MD Active SIMVASTATIN 40 MG TABS 1 TABLET PO Q HS SIMVASTATIN 62818838408 Active Ian Valdez MD Active SIMVASTATIN 80 MG TABS Take one by mouth daily SIMVASTATIN 02825167184 No Longer Active Ian Valdez MD Active PREDNISONE 20 MG TAB 2 tabs daily for 3 days, 1 tab daily for 3 days, 1/2 tab daily for 2 days PREDNISONE 60273721834 No Longer Active Ian Valdez MD Active ZITHROMAX 250 MG TAB 2 po today, then 1 po q days 2-5 AZITHROMYCIN 90346670886 No Longer Active Ian Valdez MD Active TRAZODONE HCL 100 MG TABS 2 TABS PO Q HS TRAZODONE HCL 96394502183 Active Ian Valdez MD Active ZITHROMAX 250 MG TAB 2 po today, then 1 po q days 2-5 AZITHROMYCIN 74448126839 No Longer Active Ian Valdez MD Active SIMVASTATIN 80 MG TABS Take one by mouth daily SIMVASTATIN 80 MG TABS 824731 SIMVASTATIN Inactive AURALGAN 1.4-5.5 % SOLN AURALGAN 1.4-5.5 % SOLN 8206013 BENZOCAINE-ANTIPYRINE Inactive ZITHROMAX 1 GM PACK DIRECTED ZITHROMAX 1 GM PACK 533823 AZITHROMYCIN Inactive CHANTIX STARTING MONTH REBEKAH 0.5 MG X 11 & 1 MG X 42 TABS 0.5mg daily for 3 days , then 0.5mg BID for 4 days, then 1mg BID CHANTIX STARTING MONTH REBEKAH 0.5 MG X 11 & 1 MG X 42 TABS VARENICLINE TARTRATE Inactive ZITHROMAX 1 GM PACK DIRECTED ZITHROMAX 1 GM PACK 653746 AZITHROMYCIN Inactive MOBIC 7.5 MG TABS 1 tablet by mouthonce a day MOBIC 7.5 MG TABS 183234 MELOXICAM Inactive KLONOPIN 0.5 MG TABS 1 TABLET PO PRN KLONOPIN 0.5 MG TABS 528111 CLONAZEPAM Inactive CIPRO 500 MG TAB 1 tablet by mouth twice daily CIPRO 500 MG TAB 213521 CIPROFLOXACIN HCL Inactive AZITHROMYCIN 500 MG TABS 1 PO q day x 6 days AZITHROMYCIN 500 MG TABS 2894604 AZITHROMYCIN Inactive CYCLOBENZAPRINE HCL 10 MG TABS 1 PO q 8 hrs PRN muscle spasm 2012 CYCLOBENZAPRINE HCL 10 MG TABS 281006 CYCLOBENZAPRINE HCL Inactive METFORMIN HCL 500 MG [...] bid prn anxiety. XANAX 0.25 MG TABS 446064 ALPRAZOLAM Inactive ZITHROMAX 250 MG TAB 2 po today, then 1 po q days 2-5 ZITHROMAX 250 MG TAB 3225123 AZITHROMYCIN Inactive ZITHROMAX 250 MG TAB 2 po today, then 1 po q days 2-5 ZITHROMAX 250 MG TAB 2289872 AZITHROMYCIN Inactive PREDNISONE 20 MG TAB 2 tabs daily for 3 days, 1 tab daily for 3 days, 1/2 tab daily for 2 days PREDNISONE 20 MG TAB 557253 PREDNISONE Inactive PREDNISONE 20 MG TAB 3 tabs daily for 3 days, 2 tab daily for 3 days, 1 tab daily for 2 days, then 1/2 tab dialy for 2 days PREDNISONE 20 MG TAB 012838 PREDNISONE Inactive OMEPRAZOLE 20 MG CPDR 1 tablet by mouth daily OMEPRAZOLE 20 MG CPDR 269634 OMEPRAZOLE Inactive PREDNISONE 20 MG TABS 3 qd x 2d, 2 qd x 2d, 1 qd x 2d, 1/2 qd x 2d PREDNISONE 20 MG TABS 853656 PREDNISONE Inactive TERBINAFINE HCL 250 MG TABS 1 qDay TERBINAFINE HCL 250 MG TABS 775820 TERBINAFINE HCL Inactive Advance Directives Directive Description Start Date NO HEROIC MEASURES Immunizations Vaccine Administration Date Value Standard Description Combined Ocjjdxvdqw-Irldcov-ezyzzbclr Pertussis (dTpa) Vaccine - Booster 07/05 Boostrix [[id number]] tetanus toxoid, reduced diphtheria toxoid, and acellular [...] Panel - Chemistry sodium, serum 137 mmol/L 031-687 9664/07/25 potassium, serum 3.7 mmol/L 3.5-5.2 chloride, serum 102 mmol/L 98-107 carbon dioxide, venous blood 27.3 mmol/L 21.0-32.0 blood glucose 85 mg/dL 65-110 calcium, serum 8.5 mg/dL 8.5-10.1 urea nitrogen, blood 7 mg/dL 7-18 creatinine, serum 0.80 mg/dL 0.60-1.30 Lab Report: CBC, HGBA1C, Comp. Metabolic Panel - Chemistry hemoglobin A1C, blood, as % of total hemoglobin 5.3 % 4.3-6.0 sodium, serum 139 mmol/L 618-457 7222/02/24 potassium, serum 4.4 mmol/L 3.5-5.2 chloride, serum [...] Panel - Chemistry cholesterol, serum 118 mg/dL 051-822 0352/02/24 triglyceride, serum, fasting 141 mg/dL 30-200 HDL cholesterol, serum 20 mg/dL 32-96 LDL cholesterol, serum 70 mg/dL 0-130 Lab Report: Lipid Panel, Comp. Metabolic Panel, MICROALBUMIN, HGBA1C - Chemistry cholesterol, serum 172 mg/dL 107-873 2784/08/16 triglyceride, serum, fasting 267 mg/dL 30-200 HDL cholesterol, serum 22 mg/dL 32-96 LDL cholesterol, serum 97 mg/dL 0-130 sodium, serum 141 mmol/L 488-825 1068/08/16 potassium, serum 4.2 mmol/L 3.5-5.2 chloride, serum [...] Negative Encounters Code Encounter Date Provider Facility CPT-02867 Level 3 Est. Patient 14:54:10 CDT Ian Valdez MD [facility] CPT-93047 Level 4 Est. Patient 20:36:52 CDT Ian Valdez MD [facility] CPT-13125 Level 4 Est. Patient 11:14:30 ELECTRONICS HARDWARE DESIGN ENGINEER Ian Valdez MD [facility] CPT-42806 Level 3 Est. Patient 19:08:34 ELECTRONICS HARDWARE DESIGN ENGINEER Ian Valdez MD [facility] CPT-97156 Level 3 Est. Patient 13:17:39 ELECTRONICS HARDWARE DESIGN ENGINEER Ian Valdez MD [facility] CPT-97252 Level 4 Est. Patient 18:56:10 CDT Ian Valdez MD [facility] CPT-01840 Level 4 Est. Patient 16:55:56 CDT Ian Valdez MD [facility] CPT-28607 Level 3 Est. Patient 11:27:07 CDT Ian Valdez MD [facility] CPT-91745 Level 3 Est. Patient 15:17:44 CDT Law Rosas [facility] CPT-05242 Level 4 Est. Patient 15:13:53 CDT Wellington Muniz PA [facility] CPT-90656 Level 3 Est. Patient 14:25:12 ELECTRONICS HARDWARE DESIGN ENGINEER Ian Valdez MD [facility] CPT-94398 Level 3 Est. Patient 10:24:46 CDT Ian Valdez MD [facility] CPT-26291 Level 3 Est. Patient 15:34:19 CDT Ina Valdez MD [facility] CPT-59613 Level 3 Est. Patient 14:22:41 CDT Ian Valdez MD [facility] CPT-30619 Level 3 Est. Patient 15:07:22 ELECTRONICS HARDWARE DESIGN ENGINEER Ian Valdez MD [facility] CPT-21386 Level 3 New Patient 09:06:43 ELECTRONICS HARDWARE DESIGN ENGINEER Ian Valdez MD [facility] CPT-38215 Level 3 Est. Patient 15:09:00 ELECTRONICS HARDWARE DESIGN ENGINEER Ian Valdez MD [facility] Procedures Code Procedure Name Date Entry Date Standard Description CPT-33257 UHCG (floor use only) 13:39:36 CDT CPT-71203 Nexplanon Placement 10:11:48 CDT CPT-J7307 Nexplanon (Implant) 10:11:48 CDT CPT-OV Office Visit 09:54:18 CDT CPT-84576 EKG Trac and Interp 16:50:19 CDT CPT-88540 Venipuncture Draw Fee 15:06:08 CDT CPT-J2930 Solu Medrol 125 mg (Methyl Prednisolone Sodium Succinate) 12:44:46 CDT CPT-J1055 Depo Provera 150 mg (Medroxyprogesterone) 12:44:46 CDT CPT-46060 Abx/Therapy Injection 12:44:46 CDT CPT-J1055 Depo Provera 150 mg (Medroxyprogesterone) 14:28:41 CDT CPT-J2930 Solu Medrol 125 mg (Methyl Prednisolone Sodium Succinate) 14:22:41 CDT CPT-88020 Administration single or combination vaccine inc oral 10 :08:06 CDT CPT-64365 Tdap 10:08:06 CDT CPT-G0402 Wlcm To Medicare Ex 22:17:30 CDT CPT-43341 Venipuncture Draw Fee 10:33:07 ELECTRONICS HARDWARE DESIGN ENGINEER CPT-87259 Venipuncture Draw Fee 10:17:37 ELECTRONICS HARDWARE DESIGN ENGINEER CPT-G0403 EKG [facility] To Medicare 22:17:30 CDT
--- OUTSIDE RECORDS SUMMARY | 2018-07-17 21:49 | XMS REPORT | Clinical Summary ---
Author Author Admin, ARIAN Organization [facility] Address Unknown Phone Allergies, Adverse Reactions, Alerts [...] with (acute) exacerbation ACUTE BRONCHITIS 466.0 Resolved Ina Valdez MD Acute bronchitis LATERAL EPICONDYLITIS, RIGHT [...] Valdez MD EUSTACHIAN TUBE DYSFUNCTION ICD-381.81 Inactive aIn Valdez MD CONTACT DERMATITIS DUE TO POISON [...] CREA apply bid to rash TERBINAFINE HCL 52174419421 Active Ian Valdez MD Active TERBINAFINE HCL 250 MG TABS 1 qDay TERBINAFINE HCL 00228603314 No Longer Active Ian Valdez MD Active TOPAMAX 25 MG TABS 1 tab po qhs x 1 week, then take 2 tabs po qhs TOPIRAMATE 08699688565 Active Ian Valdez MD Active XANAX 0.25 MG TABS take 1 tab po bid prn anxiety. ALPRAZOLAM 34533114314 No Longer Active Ian Valdez MD Active FISH OIL 1000 MG CAPS 2 caps PO once daily at bedtime OMEGA-3 FATTY ACIDS 79139872689 No Longer Active Ian Valdez MD Active KLOR-CON M20 20 MEQ CR-TABS take 1 tab po qday with lasix POTASSIUM CHLORIDE GALILEO CR 29841311525 Active Ian Valdez MD Active LASIX 20 MG TAB 1 tablet by mouth daily prn swelling FUROSEMIDE 72622830767 Active Ian aVldez MD Active FLONASE 50 MCG/ACT SUSP 2 puffs in each nostril once daily at bedtime FLUTICASONE PROPIONATE 94094913506 Active Ian Valdez MD Active CVS MELATONIN 3 MG TABS 2 tabs PO at bedtime MELATONIN 10830774323 Active Ian Valdez MD Active PULMICORT FLEXHALER 180 MCG/ACT AEPB 2 INH BID BUDESONIDE 02172347207 No Longer Active Ian Valdez MD Active METFORMIN HCL 500 MG TB24 1 TAB PO Q HS METFORMIN HCL 34978301904 No Longer Active Ian Valdez MD Active CYCLOBENZAPRINE HCL 10 MG TABS 1 PO q 8 hrs PRN muscle spasm 2012 CYCLOBENZAPRINE HCL 78394814982 No Longer Active Ian Valdez MD Active AZITHROMYCIN 500 MG TABS 1 PO q day x 6 days AZITHROMYCIN 05137097274 No Longer Active Ian Valdez MD Active CIPRO 500 MG TAB 1 tablet by mouth twice daily CIPROFLOXACIN HCL 40063263673 No Longer Active Ian Valdez MD Active PREDNISONE 20 MG TABS 3 qd x 2d, 2 qd x 2d, 1 qd x 2d, 1/2 qd x 2d PREDNISONE 64383645040 No Longer Active Law FIGUEROA Active CELEXA 40 MG TABS 2 PO DAILY CITALOPRAM HYDROBROMIDE 88245090861 Active Ian Valdez MD Active OMEPRAZOLE 20 MG CPDR 1 tablet by mouth daily OMEPRAZOLE 06988155811 No Longer Active [place] FIGUEROA Active KLONOPIN 0.5 MG TABS 1 TABLET PO PRN CLONAZEPAM 97420399572 No Longer Active [place] FIGUEROA Active MOBIC 7.5 MG TABS 1 tablet by mouthonce a day MELOXICAM 19306198540 No Longer Active [place] FIGUEROA Active ZITHROMAX 1 GM PACK DIRECTED AZITHROMYCIN 12664520974 No Longer Active Ian Valdez MD Active ALBUTEROL SULFATE 0.083 % NEBU SOLN one vial per nebulizer every 4-6 hours as needed ALBUTEROL SULFATE 28767922022 Active Ian Valdez MD Active CHANTIX STARTING MONTH REBEKAH 0.5 MG X 11 & 1 MG X 42 TABS 0.5mg daily for 3 days , then 0.5mg BID for 4 days, then 1mg BID VARENICLINE TARTRATE 85029973400 No Longer Active Ian Valdez MD Active ZITHROMAX 1 GM PACK DIRECTED AZITHROMYCIN 83845833495 No Longer Active Ian Valdez MD Active AURALGAN 1.4-5.5 % SOLN BENZOCAINE-ANTIPYRINE 42279742175 No Longer Active Ian Valdez MD Active PREDNISONE 20 MG TAB 3 tabs daily for 3 days, 2 tab daily for 3 days, 1 tab daily for 2 days, then 1/2 tab dialy for 2 days PREDNISONE 27313733779 No Longer Active Ian Valdez MD Active SIMVASTATIN 40 MG TABS 1 TABLET PO Q HS SIMVASTATIN 07372062078 Active Ian Valdez MD Active SIMVASTATIN 80 MG TABS Take one by mouth daily SIMVASTATIN 19096609284 No Longer Active Ian Valdez MD Active PREDNISONE 20 MG TAB 2 tabs daily for 3 days, 1 tab daily for 3 days, 1/2 tab daily for 2 days PREDNISONE 17677489938 No Longer Active Ian Valdez MD Active ZITHROMAX 250 MG TAB 2 po today, then 1 po q days 2-5 AZITHROMYCIN 61928588402 No Longer Active Ian Valdez MD Active TRAZODONE HCL 100 MG TABS 2 TABS PO Q HS TRAZODONE HCL 48216357636 Active Ian Valdez MD Active ZITHROMAX 250 MG TAB 2 po today, then 1 po q days 2-5 AZITHROMYCIN 49472847643 No Longer Active Ian Valdez MD Active SIMVASTATIN 80 MG TABS Take one by mouth daily SIMVASTATIN 80 MG TABS 415589 SIMVASTATIN Inactive AURALGAN 1.4-5.5 % SOLN AURALGAN 1.4-5.5 % SOLN 7338148 BENZOCAINE-ANTIPYRINE Inactive ZITHROMAX 1 GM PACK DIRECTED ZITHROMAX 1 GM PACK 695243 AZITHROMYCIN Inactive CHANTIX STARTING MONTH REBEKAH 0.5 MG X 11 & 1 MG X 42 TABS 0.5mg daily for 3 days , then 0.5mg BID for 4 days, then 1mg BID CHANTIX STARTING MONTH REBEKAH 0.5 MG X 11 & 1 MG X 42 TABS VARENICLINE TARTRATE Inactive ZITHROMAX 1 GM PACK DIRECTED ZITHROMAX 1 GM PACK 491710 AZITHROMYCIN Inactive MOBIC 7.5 MG TABS 1 tablet by mouthonce a day MOBIC 7.5 MG TABS 755326 MELOXICAM Inactive KLONOPIN 0.5 MG TABS 1 TABLET PO PRN KLONOPIN 0.5 MG TABS 898531 CLONAZEPAM Inactive CIPRO 500 MG TAB 1 tablet by mouth twice daily CIPRO 500 MG TAB 302679 CIPROFLOXACIN HCL Inactive AZITHROMYCIN 500 MG TABS 1 PO q day x 6 days AZITHROMYCIN 500 MG TABS 8447528 AZITHROMYCIN Inactive CYCLOBENZAPRINE HCL 10 MG TABS 1 PO q 8 hrs PRN muscle spasm 2012 CYCLOBENZAPRINE HCL 10 MG TABS 753805 CYCLOBENZAPRINE HCL Inactive METFORMIN HCL 500 MG [...] bid prn anxiety. XANAX 0.25 MG TABS 694195 ALPRAZOLAM Inactive ZITHROMAX 250 MG TAB 2 po today, then 1 po q days 2-5 ZITHROMAX 250 MG TAB 6200028 AZITHROMYCIN Inactive ZITHROMAX 250 MG TAB 2 po today, then 1 po q days 2-5 ZITHROMAX 250 MG TAB 8298281 AZITHROMYCIN Inactive PREDNISONE 20 MG TAB 2 tabs daily for 3 days, 1 tab daily for 3 days, 1/2 tab daily for 2 days PREDNISONE 20 MG TAB 187441 PREDNISONE Inactive PREDNISONE 20 MG TAB 3 tabs daily for 3 days, 2 tab daily for 3 days, 1 tab daily for 2 days, then 1/2 tab dialy for 2 days PREDNISONE 20 MG TAB 422919 PREDNISONE Inactive OMEPRAZOLE 20 MG CPDR 1 tablet by mouth daily OMEPRAZOLE 20 MG CPDR 412882 OMEPRAZOLE Inactive PREDNISONE 20 MG TABS 3 qd x 2d, 2 qd x 2d, 1 qd x 2d, 1/2 qd x 2d PREDNISONE 20 MG TABS 037387 PREDNISONE Inactive TERBINAFINE HCL 250 MG TABS 1 qDay TERBINAFINE HCL 250 MG TABS 519666 TERBINAFINE HCL Inactive Advance Directives Directive Description Start Date NO HEROIC MEASURES Immunizations Vaccine Administration Date Value Standard Description Combined Fhblpbgpsl-Nfrmast-xdiaijzvq Pertussis (dTpa) Vaccine - Booster 07/05 Boostrix [[id number]] tetanus toxoid, reduced diphtheria toxoid, and acellular [...] Panel - Chemistry sodium, serum 137 mmol/L 483-728 3715/07/25 potassium, serum 3.7 mmol/L 3.5-5.2 chloride, serum 102 mmol/L 98-107 carbon dioxide, venous blood 27.3 mmol/L 21.0-32.0 blood glucose 85 mg/dL 65-110 calcium, serum 8.5 mg/dL 8.5-10.1 urea nitrogen, blood 7 mg/dL 7-18 creatinine, serum 0.80 mg/dL 0.60-1.30 Lab Report: CBC, HGBA1C, Comp. Metabolic Panel - Chemistry hemoglobin A1C, blood, as % of total hemoglobin 5.3 % 4.3-6.0 sodium, serum 139 mmol/L 326-360 3402/02/24 potassium, serum 4.4 mmol/L 3.5-5.2 chloride, serum [...] Panel - Chemistry cholesterol, serum 118 mg/dL 352-463 8672/02/24 triglyceride, serum, fasting 141 mg/dL 30-200 HDL cholesterol, serum 20 mg/dL 32-96 LDL cholesterol, serum 70 mg/dL 0-130 Lab Report: Lipid Panel, Comp. Metabolic Panel, MICROALBUMIN, HGBA1C - Chemistry cholesterol, serum 172 mg/dL 592-351 6338/08/16 triglyceride, serum, fasting 267 mg/dL 30-200 HDL cholesterol, serum 22 mg/dL 32-96 LDL cholesterol, serum 97 mg/dL 0-130 sodium, serum 141 mmol/L 126-443 6633/08/16 potassium, serum 4.2 mmol/L 3.5-5.2 chloride, serum [...] Negative Encounters Code Encounter Date Provider Facility CPT-92631 Level 3 Est. Patient 14:54:10 CDT Ian Valdez MD [facility] CPT-13337 Level 4 Est. Patient 20:36:52 CDT Ian Valdez MD [facility] CPT-35545 Level 4 Est. Patient 11:14:30 MEDIA MARKETING MANAGER Ian Valdez MD [facility] CPT-52903 Level 3 Est. Patient 19:08:34 MEDIA MARKETING MANAGER Ian Valdez MD [facility] CPT-86260 Level 3 Est. Patient 13:17:39 MEDIA MARKETING MANAGER Ian Valdez MD [facility] CPT-85963 Level 4 Est. Patient 18:56:10 CDT Ian Valdez MD [facility] CPT-36851 Level 4 Est. Patient 16:55:56 CDT Ian Valdez MD [facility] CPT-27476 Level 3 Est. Patient 11:27:07 CDT Ian Valdez MD [facility] CPT-12707 Level 3 Est. Patient 15:17:[address] [facility] CPT-14755 Level 4 Est. Patient 15:13:53 CDT Wellington Muniz PA [facility] CPT-29005 Level 3 Est. Patient 14:25:12 MEDIA MARKETING MANAGER Ian Valdez MD [facility] CPT-92371 Level 3 Est. Patient 10:24:46 CDT Ian Valdez MD [facility] CPT-83562 Level 3 Est. Patient 15:34:19 CDT Ian Valdez MD [facility] CPT-82671 Level 3 Est. Patient 14:22:41 CDT Ian Valdez MD [facility] CPT-93337 Level 3 Est. Patient 15:07:22 MEDIA MARKETING MANAGER Ian Valdez MD [facility] CPT-42489 Level 3 New Patient 09:06:43 MEDIA MARKETING MANAGER Ian Valdez MD [facility] CPT-70552 Level 3 Est. Patient 15:09:00 MEDIA MARKETING MANAGER Ian Valdez MD [facility] Procedures Code Procedure Name Date Entry Date Standard Description CPT-49025 UHCG (floor use only) 13:39:36 CDT CPT-00326 Nexplanon Placement 10:11:48 CDT CPT-J7307 Nexplanon (Implant) 10:11:48 CDT CPT-OV Office Visit 09:54:18 CDT CPT-73349 EKG Trac and Interp 16:50:19 CDT CPT-00972 Venipuncture Draw Fee 15:06:08 CDT CPT-J2930 Solu Medrol 125 mg (Methyl Prednisolone Sodium Succinate) 12:44:46 CDT CPT-J1055 Depo Provera 150 mg (Medroxyprogesterone) 12:44:46 CDT CPT-41353 Abx/Therapy Injection 12:44:46 CDT CPT-J1055 Depo Provera 150 mg (Medroxyprogesterone) 14:28:41 CDT CPT-J2930 Solu Medrol 125 mg (Methyl Prednisolone Sodium Succinate) 14:22:41 CDT CPT-79476 Administration single or combination vaccine inc oral 10 :08:06 CDT CPT-42028 Tdap 10:08:06 CDT CPT-G0402 [facility] To Medicare Ex 22:17:30 CDT CPT-61620 Venipuncture Draw Fee 10:33:07 MEDIA MARKETING MANAGER CPT-10368 Venipuncture Draw Fee 10:17:37 MEDIA MARKETING MANAGER CPT-G0403 EKG [facility] To Medicare 22:17:30 CDT
--- OUTSIDE RECORDS SUMMARY | 2018-07-17 21:50 | XMS REPORT ---
Author Author [facility] Medical Staff Organization [facility] Address [address] [place] [id number] Phone [phone] Care Team Providers Care Editorial Specialist Name Role Phone FARHAD VALDEZ MD PP [phone] Summary purpose TRANSITION OF CARE AUTO GENERATION Chief Complaint and Reason for Visit Admit Diagnosis 1 CHEST PAIN NOS Problem list No authorized problems tracked [...] tests and/or laboratory data RESULTS Radiology Results [id number]:01:00 Chest X-Ray - 2 View PACs Image DATE OF EXAM: Apr 27 2014 RAD 0300-CHEST XRAY 2 VIEW : RADIOLOGY REPORT DATE OF SERVICE: 04/27/14 HISTORY: Cough, chest pain CHEST 2 [id number] HOURS Comparison is made with 05/18/2013. The lungs are clear. Heart size and pulmonary vessels are normal. There are no hilar or mediastinal abnormalities. There is no pneumothorax or pleural effusion. IMPRESSION: Negative chest. MD LEONARDO Logan/nd04/28/2014 09:52:00 / 04/28/2014 13:59:00 cc:Dr Valdez This document has been electronically Signed by: On: DATE OF EXAM: Apr 27 2014 RAD 0300-CHEST XRAY 2 VIEW : RADIOLOGY REPORT DATE OF SERVICE: 04/27/14 HISTORY: Cough, chest pain CHEST 2 [id number] HOURS Comparison is made with 05/18/2013. The lungs are clear. Heart size and pulmonary vessels are normal. There are no hilar or mediastinal abnormalities. There is no pneumothorax or pleural effusion. IMPRESSION: Negative chest. Richi Dixon MD MWDg/nd04/28/2014 09:52:00 / 04/28/2014 13:59:00 cc:Dr Valdez This document has been electronically Signed by: RICHI DIXON On: Apr 28 20147:01P Result Amended on 2014-04-28 at 19:02:02. Previous status was TX. History of procedures Procedure Code Code Type Description Date Performed Performing Physician 41115 CPT-4 CHEST X-RAY 04-27-2014 SAUL EPSTEIN A9270 CPT-4 NON-COVERED ITEM OR SERVICE 04-27-2014 SAUL EPSTEIN A9270 CPT-4 NON-COVERED ITEM OR SERVICE 04-27-2014 SAUL EPSTEIN A9270 CPT-4 NON-COVERED ITEM OR SERVICE 04-27-2014 SAUL EPSTEIN 36689 CPT-4 ELECTROCARDIOGRAM, TRACING 04-27-2014 SAUL EPSTEIN 26494 CPT-4 EMERGENCY DEPT VISIT 04-27-2014 SAUL EPSTEIN 79848 CPT-4 EMERGENCY DEPT VISIT 04-27-2014 SAUL EPSTEIN 39284 CPT-4 ELECTROCARDIOGRAM REPORT 04-27-2014 SAUL EPSTEIN Functional status Functional Status Finding Observation Time Abdomen Appearance obese 48-58-621967:45 Abdomen soft 21-31-971652:45 Bowel Sounds present 07-34-124053:45 Henson no 16-44-138092:45 Urination normal 51-94-366500:45 Quality sym/unlabored 46-01-846564:45 Cough non-productive 35-67-289937:45 Secretions no 93-02-625943:45 Breath Sounds RUL clear 40-63-845737:45 Breath Sounds RML clear 23-14-868034:45 Breath Sounds RLL clear 10-19-424136:45 Breath Sounds DAVIDA clear :45 Breath Sounds LLL clear 88-51-466639:45 Airway natural 49-51-687208:45 Chest Tube no 63-96-856066:45 Oxygen no 40-13-082116:21 Temp >100.4 no 77-54-029517:45 Temp <96.8 no 34-56-303636:45 Chills with rigors no 03-89-705511:45 HR > 90bpm yes :45 Respirations > 20 no :45 Systolic <90 no :45 headache stiff neck no :45 Rapid Resp no :45 Nursing Note VSS. Pt given home pack hydrocodone et rx hydrocodone. DIscharge instructions reviewed. Pt verbalizes understanding. Denies needs, questions, or concerns. Discharge instructions signed et copy to pt. Pt discharged in good, stable condition. :21 Vital signs Type Value Date Respiration Rate 18breaths per minute :21 Pulse 98beats per minute : Oxygen Saturation 99% :21 BP Systolic 126mmHg :21 BP Diastolic 77mmHg :21 Temperature 98.1F :21 Weight 212LB 19-95-181887:32 Social history Type Value Smoking Status CURRENT EVERY DAY SMOKER Treatment Plan No treatment plan text is available for this visit. Hospital discharge instructions Dismissal Condition good Disposition on DC home DC Inst/Educ Give yes Med/Side Effects Rev yes
--- OUTSIDE RECORDS SUMMARY | 2018-07-17 21:50 | XMS REPORT | Clinical Summary ---
[...] then take 2 tabs po qhs TOPIRAMATE [id number] No Longer Active Thom Gilbert MD Active ULTRAM 50 MG TAB take 1 tab po q6hrs prn pain TRAMADOL HCL 43542037903 Active Ian Valdez MD Active LAMISIL AT 1 % CREA apply bid to rash TERBINAFINE HCL 06680907277 No Longer Active Thom Gilbert MD Active TERBINAFINE HCL 250 MG TABS 1 qDay TERBINAFINE HCL 54272169318 No Longer Active Ian Valdez MD Active XANAX 0.25 MG TABS take 1 tab po bid prn anxiety. ALPRAZOLAM 14927196084 No Longer Active Ian Valdez MD Active FISH OIL 1000 MG CAPS 2 caps PO once daily at bedtime OMEGA-3 FATTY ACIDS 08407568215 No Longer Active Ian Valdez MD Active KLOR-CON M20 20 MEQ CR-TABS take 1 tab po qday with lasix POTASSIUM CHLORIDE GALILEO CR 55338754321 Active Ian Valdez MD Active LASIX 20 MG TAB 1 tablet by mouth daily prn swelling FUROSEMIDE 19941453339 Active Ian Valdez MD Active FLONASE 50 MCG/ACT SUSP 2 puffs in each nostril once daily at bedtime FLUTICASONE PROPIONATE 91946277805 Active Ian Valdez MD Active CVS MELATONIN 3 MG TABS 2 tabs PO at bedtime MELATONIN 86446068841 Active Ian Valdez MD Active PULMICORT FLEXHALER 180 MCG/ACT AEPB 2 INH BID BUDESONIDE 89725574700 No Longer Active Ian Valdez MD Active METFORMIN HCL 500 MG TB24 1 TAB PO Q HS METFORMIN HCL 02137789331 No Longer Active Ian Valdez MD Active CYCLOBENZAPRINE HCL 10 MG TABS 1 PO q 8 hrs PRN muscle spasm 2012 CYCLOBENZAPRINE HCL 35144819441 No Longer Active Ian Valdez MD Active AZITHROMYCIN 500 MG TABS 1 PO q day x 6 days AZITHROMYCIN 02893311295 No Longer Active Ian Valdez MD Active CIPRO 500 MG TAB 1 tablet by mouth twice daily CIPROFLOXACIN HCL 78577083604 No Longer Active Ian Valdez MD Active PREDNISONE 20 MG TABS 3 qd x 2d, 2 qd x 2d, 1 qd x 2d, 1/2 qd x 2d PREDNISONE 51615047042 No Longer Active Law FIGUEROA Active CELEXA 40 MG TABS 2 PO DAILY CITALOPRAM HYDROBROMIDE 28635895809 Active Ian Valdez MD Active OMEPRAZOLE 20 MG CPDR 1 tablet by mouth daily OMEPRAZOLE 66268162754 No Longer Active [place] FIGUEROA Active KLONOPIN 0.5 MG TABS 1 TABLET PO PRN CLONAZEPAM 42970426434 No Longer Active [place] FIGUEROA Active MOBIC 7.5 MG TABS 1 tablet by mouthonce a day MELOXICAM 86359160438 No Longer Active [place] FIGUEROA Active ZITHROMAX 1 GM PACK DIRECTED AZITHROMYCIN 77116539424 No Longer Active Ian Valdez MD Active ALBUTEROL SULFATE 0.083 % NEBU SOLN one vial per nebulizer every 4-6 hours as needed ALBUTEROL SULFATE 86522143955 Active Ian Valdez MD Active CHANTIX STARTING MONTH REBEKAH 0.5 MG X 11 & 1 MG X 42 TABS 0.5mg daily for 3 days , then 0.5mg BID for 4 days, then 1mg BID VARENICLINE TARTRATE 25098277875 No Longer Active Ian Valdez MD Active ZITHROMAX 1 GM PACK DIRECTED AZITHROMYCIN 23826087693 No Longer Active Ian Valdez MD Active AURALGAN 1.4-5.5 % SOLN BENZOCAINE-ANTIPYRINE 07263497310 No Longer Active Ian Valdez MD Active PREDNISONE 20 MG TAB 3 tabs daily for 3 days, 2 tab daily for 3 days, 1 tab daily for 2 days, then 1/2 tab dialy for 2 days PREDNISONE 53628768321 No Longer Active Ian Vadlez MD Active SIMVASTATIN 40 MG TABS 1 TABLET PO Q HS SIMVASTATIN 42205870553 Active Ian Valdez MD Active SIMVASTATIN 80 MG TABS Take one by mouth daily SIMVASTATIN 20809155797 No Longer Active Ian Valdez MD Active PREDNISONE 20 MG TAB 2 tabs daily for 3 days, 1 tab daily for 3 days, 1/2 tab daily for 2 days PREDNISONE 52982254818 No Longer Active Ian Valdez MD Active ZITHROMAX 250 MG TAB 2 po today, then 1 po q days 2-5 AZITHROMYCIN 47260925481 No Longer Active Ian Valdez MD Active TRAZODONE HCL 100 MG TABS 2 TABS PO Q HS TRAZODONE HCL 70500543648 Active Ian Valdez MD Active ZITHROMAX 250 MG TAB 2 po today, then 1 po q days 2-5 AZITHROMYCIN 92616139077 No Longer Active Ian Valdez MD Active SIMVASTATIN 80 MG TABS Take one by mouth daily SIMVASTATIN 80 MG TABS 913782 SIMVASTATIN Inactive AURALGAN 1.4-5.5 % SOLN AURALGAN 1.4-5.5 % SOLN BENZOCAINE-ANTIPYRINE Inactive ZITHROMAX 1 GM PACK DIRECTED ZITHROMAX 1 GM PACK 766853 AZITHROMYCIN Inactive CHANTIX STARTING MONTH REBEKAH 0.5 MG X 11 & 1 MG X 42 TABS 0.5mg daily for 3 days , then 0.5mg BID for 4 days, then 1mg BID CHANTIX STARTING MONTH REBEKAH 0.5 MG X 11 & 1 MG X 42 TABS VARENICLINE TARTRATE Inactive ZITHROMAX 1 GM PACK DIRECTED ZITHROMAX 1 GM PACK 877580 AZITHROMYCIN Inactive MOBIC 7.5 MG TABS 1 tablet by mouthonce a day MOBIC 7.5 MG TABS 602206 MELOXICAM Inactive KLONOPIN 0.5 MG TABS 1 TABLET PO PRN KLONOPIN 0.5 MG TABS 084690 CLONAZEPAM Inactive CIPRO 500 MG TAB 1 tablet by mouth twice daily CIPRO 500 MG TAB 442953 CIPROFLOXACIN HCL Inactive AZITHROMYCIN 500 MG TABS 1 PO q day x 6 days AZITHROMYCIN 500 MG TABS 6379297 AZITHROMYCIN Inactive CYCLOBENZAPRINE HCL 10 MG TABS 1 PO q 8 hrs PRN muscle spasm 2012 CYCLOBENZAPRINE HCL 10 MG TABS 983911 CYCLOBENZAPRINE HCL Inactive METFORMIN HCL 500 MG [...] bid prn anxiety. XANAX 0.25 MG TABS 951447 ALPRAZOLAM Inactive LAMISIL AT 1 % CREA apply bid to rash LAMISIL AT 1 % CREA 654262 TERBINAFINE HCL Inactive TOPAMAX 25 MG TABS 1 tab po qhs x 1 week, then take 2 tabs po qhs TOPAMAX 25 MG TABS 302212 TOPIRAMATE Inactive ZITHROMAX 250 MG TAB 2 po today, then 1 po q days 2-5 ZITHROMAX 250 MG TAB 6558913 AZITHROMYCIN Inactive ZITHROMAX 250 MG TAB 2 po today, then 1 po q days 2-5 ZITHROMAX 250 MG TAB 2721338 AZITHROMYCIN Inactive PREDNISONE 20 MG TAB 2 tabs daily for 3 days, 1 tab daily for 3 days, 1/2 tab daily for 2 days PREDNISONE 20 MG TAB 116232 PREDNISONE Inactive PREDNISONE 20 MG TAB 3 tabs daily for 3 days, 2 tab daily for 3 days, 1 tab daily for 2 days, then 1/2 tab dialy for 2 days PREDNISONE 20 MG TAB 568494 PREDNISONE Inactive OMEPRAZOLE 20 MG CPDR 1 tablet by mouth daily OMEPRAZOLE 20 MG CPDR 298962 OMEPRAZOLE Inactive PREDNISONE 20 MG TABS 3 qd x 2d, 2 qd x 2d, 1 qd x 2d, 1/2 qd x 2d PREDNISONE 20 MG TABS 096483 PREDNISONE Inactive TERBINAFINE HCL 250 MG TABS 1 qDay TERBINAFINE HCL 250 MG TABS 819656 TERBINAFINE HCL Inactive Advance Directives Directive Description Start Date NO HEROIC MEASURES Immunizations Vaccine Administration Date Value Standard Description Boostrix (Tetanus toxoid, reduced diphtheria toxoid and acellular pertussis vaccine, adsorbed), booster Boostrix [[id number]] tetanus toxoid, reduced diphtheria toxoid, and acellular [...] 5.3 % 4.3-6.0 sodium, serum 139 mmol/L 752-279 9619/02/24 potassium, serum 4.4 mmol/L 3.5-5.2 chloride, serum [...] CBC, HGBA1C, Comp. Metabolic Panel - Hematology erythrocyte (RBC) count 5.09 10^6/MM^3 10*6/mm3 4.04-5.48 hemoglobin, blood 15.6 g/dL 12.0-16.0 hematocrit, blood 46.3 % 36.0-46.0 mean corpuscular volume, RBC 91 fL 80-97 mean corpuscular hemoglobin, RBC 30.7 pg 27.0-31.2 leukocyte count, blood 8.4 10^3/MM^3 10*3/mm3 4.6-10.2 mean corpuscular hemoglobin concentration, RBC 33.8 G/DL % 31.8- 35.4 red blood cell distribution width 13.6 % 11.6-14.8 platelet count 364 10^3/MM^3 10*3/mm3 142-424 Lab Report: Lipid Panel - Chemistry cholesterol, serum 118 mg/dL 707-495 6182/02/24 triglyceride, serum, fasting 141 mg/dL 30-200 HDL cholesterol, serum 20 mg/dL 32-96 LDL cholesterol, serum 70 mg/dL 0-130 Lab Report: Lipid Panel, Comp. Metabolic Panel, MICROALBUMIN, HGBA1C - Chemistry albumin/creatinine ratio, urine < 30 mg/g mg/g{creat} 0-29 hemoglobin A1C, blood, as % of total hemoglobin 5.3 % 4.3-6.0 sodium, serum 141 mmol/L 919-844 5133/08/16 LDL cholesterol, serum 97 mg/dL 0-130 HDL cholesterol, serum 22 mg/dL 32-96 triglyceride, serum, fasting 267 mg/dL 30-200 cholesterol, serum 172 mg/dL 718-679 7813/08/16 potassium, serum 4.2 mmol/L 3.5-5.2 chloride, serum [...] Negative Encounters Code Encounter Date Provider Facility CPT-30877 Level 3 Est. Patient 14:54:10 CDT Ian Valdez MD [facility] CPT-85983 Level 4 Est. Patient 20:36:52 CDT Ian Valdez MD [facility] CPT-99355 Level 4 Est. Patient 11:14:30 COBOL APPLICATION DEVELOPER Ian Valdez MD [facility] CPT-40933 Level 3 Est. Patient 19:08:34 COBOL APPLICATION DEVELOPER Ian Valdez MD [facility] CPT-28598 Level 3 Est. Patient 13:17:39 COBOL APPLICATION DEVELOPER Ian Valdez MD [facility] CPT-63038 Level 4 Est. Patient 18:56:10 CDT Ian Valdez MD [facility] CPT-78031 Level 4 Est. Patient 16:55:56 CDT Ian Valdez MD [facility] CPT-40340 Level 3 Est. Patient 11:27:07 CDT Ian Valdez MD [facility] CPT-28418 Level 3 Est. Patient 15:17:44 CDT Law Rosas [facility] CPT-32986 Level 4 Est. Patient 15:13:53 CDT Wellington Muniz [facility] CPT-03877 Level 3 Est. Patient 14:25:12 COBOL APPLICATION DEVELOPER Ian Valdez MD [facility] CPT-96000 Level 3 Est. Patient 10:24:46 CDT Ian Valdez MD [facility] CPT-53715 Level 3 Est. Patient 15:34:19 CDT Ian Valdez MD [facility] CPT-59657 Level 3 Est. Patient 14:22:41 CDT Ian Valdez MD [facility] CPT-70089 Level 3 Est. Patient 15:07:22 COBOL APPLICATION DEVELOPER Ian Valdez MD [facility] CPT-41394 Level 3 New Patient 09:06:43 COBOL APPLICATION DEVELOPER Ian Valdez MD [facility] CPT-82522 Level 3 Est. Patient 15:09:00 COBOL APPLICATION DEVELOPER Ian Valdez MD [facility] Procedures Code Procedure Name Date Entry Date Standard Description CPT-OV Office Visit 15:19:52 CDT CPT-OV Office Visit 10:41:01 CDT CPT-01246 Core biop breast wo imaging 16:50:06 CDT CPT-OV Office Visit 16:50:05 CDT CPT-12614 UHCG (floor use only) 13:39:36 CDT CPT-04066 Nexplanon Placement 10:11:48 CDT CPT-J7307 Nexplanon (Implant) 10:11:48 CDT CPT-OV Office Visit 09:54:18 CDT CPT-30666 EKG Trac and Interp 16:50:19 CDT CPT-35365 Venipuncture Draw Fee 15:06:08 CDT CPT-J2930 Solu Medrol 125 mg (Methyl Prednisolone Sodium Succinate) 12:44:46 CDT CPT-J1055 Depo Provera 150 mg (Medroxyprogesterone) 12:44:46 CDT CPT-64503 Abx/Therapy Injection 12:44:46 CDT CPT-J1055 Depo Provera 150 mg (Medroxyprogesterone) 14:28:41 CDT CPT-J2930 Solu Medrol 125 mg (Methyl Prednisolone Sodium Succinate) 14:22:41 CDT CPT-12494 Administration single or combination vaccine inc oral 10 :08:06 CDT CPT-31590 Tdap 10:08:06 CDT CPT-G0402 Wlcm To Medicare Ex 22:17:30 CDT CPT-31060 Venipuncture Draw Fee 10:33:07 COBOL APPLICATION DEVELOPER CPT-80616 Venipuncture Draw Fee 10:17:37 COBOL APPLICATION DEVELOPER CPT-G0403 EKG Wlc To Medicare 22:17:30 CDT
--- OUTSIDE RECORDS SUMMARY | 2018-07-17 21:50 | XMS REPORT ---
Author Author [facility] Medical Staff Organization [facility] [employer] [facility] Address [address] [place], [place] [id number] Phone [phone] Care Team Providers Care Machine Cementer And Folder Name Role Phone FARHAD SETHI MD PP [phone] Summary purpose TRANSITION OF CARE AUTO GENERATION [...] Status Finding Observation Time Abdomen Appearance obese 66-14-333235:45 Abdomen soft 30-56-146653:45 Bowel Sounds present 06-61-354793:45 Henson no :45 Urination normal :45 Quality sym/unlabored :45 Cough non-productive :45 Secretions no :45 Breath Sounds RUL clear :45 Breath Sounds RML clear :45 Breath Sounds RLL clear :45 Breath Sounds DAVIDA clear :45 Breath Sounds LLL clear :45 Airway natural 37-52-441417:45 Chest Tube no :45 Oxygen no 50-13-957167:21 Temp >100.4 no :45 Temp <96.8 no :45 Chills with rigors no : HR > 90bpm yes : Respirations > 20 no :45 Systolic <90 [...] Respiration Rate 18breaths per minute : Pulse 98beats per minute : Oxygen Saturation 99% :21 BP Systolic 126mmHg :21 BP Diastolic 77mmHg :21 Temperature 98.1F :21 Weight 212LB 01-84-077271:32 Social history Type Value Smoking Status CURRENT EVERY DAY SMOKER Treatment Plan No treatment plan text is available for this visit. Hospital discharge instructions Dismissal Condition good Disposition on DC home DC Inst/Educ Give yes Med/Side Effects Rev yes
--- OUTSIDE RECORDS SUMMARY | 2018-07-17 21:51 | XMS REPORT | Clinical Summary ---
Author Author Admin, ARIAN Organization [facility] Address Unknown Phone Unavailable Allergies, Adverse [...] Active Thom Gilbert MD Diffuse cystic mastopathy SINUSITIS ICD-473.9 Inactive Ian Valdez MD SCABIES [...] cap by mouth twice daily DOXYCYCLINE HYCLATE 63769060411 No Longer Active Najma Vaughn APRN Active MULTIVITAMINS CAPS 1 tablet daily MULTIPLE VITAMIN 52220274989 Active Juan Smith MD Active CYCLOBENZAPRINE HCL 10 MG TABS 1/2 - 1 tab by mouth three times daily if needed for spasms/pain CYCLOBENZAPRINE HCL 86722664232 Active Ian Valdez MD Active GLUCOPHAGE 500 MG TABS 1 tab BID with morning and night meals METFORMIN HCL 98118100047 Active Eva Ferrara MD PhD Active PROGESTERONE MICRONIZED 100 MG CAPS 2 caps daily day 16 thru 25 of cycle 2013 PROGESTERONE MICRONIZED 58959071450 Active Eva Ferrara MD PhD Active TERBINAFINE HCL 1 % CREA Apply bid to rash TERBINAFINE HCL 73217675153 No Longer Active Eva Ferrara MD PhD Active TOPAMAX 25 MG TABS 1 tab po qhs x 1 week, then take 2 tabs po qhs TOPIRAMATE 14985288154 No Longer Active Thom Gilbert MD Active ULTRAM 50 MG TAB take 1 tab po q6hrs prn pain TRAMADOL HCL 99070414941 Active Ian Valdez MD Active LAMISIL AT 1 % CREA apply bid to rash TERBINAFINE HCL 19442568350 No Longer Active Thom Gilbert MD Active TERBINAFINE HCL 250 MG TABS 1 qDay TERBINAFINE HCL 41204831328 No Longer Active Ian Valdez MD Active XANAX 0.25 MG TABS take 1 tab po bid prn anxiety. ALPRAZOLAM 13251501059 No Longer Active Ian Valdez MD Active FISH OIL 1000 MG CAPS 2 caps PO once daily at bedtime OMEGA-3 FATTY ACIDS 00261882123 No Longer Active Ian Valdez MD Active KLOR-CON M20 20 MEQ CR-TABS take 1 tab po qday with lasix POTASSIUM CHLORIDE GALILEO CR 79756554058 Active Ian Valdez MD Active LASIX 20 MG TAB 1 tablet by mouth daily prn swelling FUROSEMIDE 90248635271 Active Ian Valdez MD Active FLONASE 50 MCG/ACT SUSP 2 puffs in each nostril once daily at bedtime FLUTICASONE PROPIONATE 67236039619 Active Ian Valdez MD Active CVS MELATONIN 3 MG TABS 2 tabs PO at bedtime MELATONIN 52051012128 Active Ian Valdez MD Active PULMICORT FLEXHALER 180 MCG/ACT AEPB 2 INH BID BUDESONIDE 79939598242 No Longer Active Ian Valdez MD Active METFORMIN HCL 500 MG TB24 1 TAB PO Q HS METFORMIN HCL 16518667534 No Longer Active Ian Valdez MD Active CYCLOBENZAPRINE HCL 10 MG TABS 1 PO q 8 hrs PRN muscle spasm 2012 CYCLOBENZAPRINE HCL 10203514324 No Longer Active Ian Valdez MD Active AZITHROMYCIN 500 MG TABS 1 PO q day x 6 days AZITHROMYCIN 86039570771 No Longer Active Ian Valdez MD Active CIPRO 500 MG TAB 1 tablet by mouth twice daily CIPROFLOXACIN HCL 24289179513 No Longer Active Ian Valdez MD Active PREDNISONE 20 MG TABS 3 qd x 2d, 2 qd x 2d, 1 qd x 2d, 1/2 qd x 2d PREDNISONE 12816285918 No Longer Active Law FIGUEROA Active CELEXA 40 MG TABS 2 PO DAILY CITALOPRAM HYDROBROMIDE 35891222114 Active Ian Valdez MD Active OMEPRAZOLE 20 MG CPDR 1 tablet by mouth daily OMEPRAZOLE 81301857177 No Longer Active [place] FIGUEROA Active KLONOPIN 0.5 MG TABS 1 TABLET PO PRN CLONAZEPAM 58476483931 No Longer Active [place] FIGUEROA Active MOBIC 7.5 MG TABS 1 tablet by mouthonce a day MELOXICAM 48107020078 No Longer Active [place] FIGUEROA Active ZITHROMAX 1 GM PACK DIRECTED AZITHROMYCIN 79776859420 No Longer Active Ian Valdez MD Active ALBUTEROL SULFATE 0.083 % NEBU SOLN one vial per nebulizer every 4-6 hours as needed ALBUTEROL SULFATE 94240293652 Active Ian Valdez MD Active CHANTIX STARTING MONTH REBEKAH 0.5 MG X 11 & 1 MG X 42 TABS 0.5mg daily for 3 days , then 0.5mg BID for 4 days, then 1mg BID VARENICLINE TARTRATE 83562365230 No Longer Active Ian Valdez MD Active ZITHROMAX 1 GM PACK DIRECTED AZITHROMYCIN 73409659212 No Longer Active Ian Valdez MD Active AURALGAN 1.4-5.5 % SOLN BENZOCAINE-ANTIPYRINE 26112865652 No Longer Active Ian Valdez MD Active PREDNISONE 20 MG TAB 3 tabs daily for 3 days, 2 tab daily for 3 days, 1 tab daily for 2 days, then 1/2 tab dialy for 2 days PREDNISONE 93277402150 No Longer Active Ian Valdez MD Active SIMVASTATIN 40 MG TABS 1 TABLET PO Q HS SIMVASTATIN 92992702293 Active Ian Valdez MD Active SIMVASTATIN 80 MG TABS Take one by mouth daily SIMVASTATIN 72747658940 No Longer Active Ian Valdez MD Active PREDNISONE 20 MG TAB 2 tabs daily for 3 days, 1 tab daily for 3 days, 1/2 tab daily for 2 days PREDNISONE 77423609682 No Longer Active Ian Valdez MD Active ZITHROMAX 250 MG TAB 2 po today, then 1 po q days 2-5 AZITHROMYCIN 12172910119 No Longer Active Ian Valdez MD Active TRAZODONE HCL 100 MG TABS 2 TABS PO Q HS TRAZODONE HCL 78830891212 Active Ian Valdez MD Active ZITHROMAX 250 MG TAB 2 po today, then 1 po q days 2-5 AZITHROMYCIN 26780873412 No Longer Active Ian Valdez MD Active SIMVASTATIN 80 MG TABS Take one by mouth daily SIMVASTATIN 80 MG TABS 396331 SIMVASTATIN Inactive AURALGAN 1.4-5.5 % SOLN AURALGAN 1.4-5.5 % SOLN BENZOCAINE-ANTIPYRINE Inactive ZITHROMAX 1 GM PACK DIRECTED ZITHROMAX 1 GM PACK 543164 AZITHROMYCIN Inactive CHANTIX STARTING MONTH REBEKAH 0.5 MG X 11 & 1 MG X 42 TABS 0.5mg daily for 3 days , then 0.5mg BID for 4 days, then 1mg BID CHANTIX STARTING MONTH REBEKAH 0.5 MG X 11 & 1 MG X 42 TABS VARENICLINE TARTRATE Inactive ZITHROMAX 1 GM PACK DIRECTED ZITHROMAX 1 GM PACK 342632 AZITHROMYCIN Inactive MOBIC 7.5 MG TABS 1 tablet by mouthonce a day MOBIC 7.5 MG TABS 446043 MELOXICAM Inactive KLONOPIN 0.5 MG TABS 1 TABLET PO PRN KLONOPIN 0.5 MG TABS 603456 CLONAZEPAM Inactive CIPRO 500 MG TAB 1 tablet by mouth twice daily CIPRO 500 MG TAB 027818 CIPROFLOXACIN HCL Inactive AZITHROMYCIN 500 MG TABS 1 PO q day x 6 days AZITHROMYCIN 500 MG TABS 6264245 AZITHROMYCIN Inactive CYCLOBENZAPRINE HCL 10 MG TABS 1 PO q 8 hrs PRN muscle spasm 2012 CYCLOBENZAPRINE HCL 10 MG TABS 090480 CYCLOBENZAPRINE HCL Inactive METFORMIN HCL 500 MG [...] bid prn anxiety. XANAX 0.25 MG TABS 124168 ALPRAZOLAM Inactive LAMISIL AT 1 % CREA apply bid to rash LAMISIL AT 1 % CREA 476979 TERBINAFINE HCL Inactive TOPAMAX 25 MG TABS 1 tab po qhs x 1 week, then take 2 tabs po qhs TOPAMAX 25 MG TABS 232412 TOPIRAMATE Inactive TERBINAFINE HCL 1 % CREA Apply bid to rash TERBINAFINE HCL 1 % CREA 623449 TERBINAFINE HCL Inactive ZITHROMAX 250 MG TAB 2 po today, then 1 po q days 2-5 ZITHROMAX 250 MG TAB 7082012 AZITHROMYCIN Inactive ZITHROMAX 250 MG TAB 2 po today, then 1 po q days 2-5 ZITHROMAX 250 MG TAB 0394119 AZITHROMYCIN Inactive PREDNISONE 20 MG TAB 2 tabs daily for 3 days, 1 tab daily for 3 days, 1/2 tab daily for 2 days PREDNISONE 20 MG TAB 777783 PREDNISONE Inactive PREDNISONE 20 MG TAB 3 tabs daily for 3 days, 2 tab daily for 3 days, 1 tab daily for 2 days, then 1/2 tab dialy for 2 days PREDNISONE 20 MG TAB 434606 PREDNISONE Inactive OMEPRAZOLE 20 MG CPDR 1 tablet by mouth daily OMEPRAZOLE 20 MG CPDR 973306 OMEPRAZOLE Inactive PREDNISONE 20 MG TABS 3 qd x 2d, 2 qd x 2d, 1 qd x 2d, 1/2 qd x 2d PREDNISONE 20 MG TABS 570163 PREDNISONE Inactive TERBINAFINE HCL 250 MG TABS 1 qDay TERBINAFINE HCL 250 MG TABS 195475 TERBINAFINE HCL Inactive DOXYCYCLINE HYCLATE 100 MG CAP 1 cap by mouth twice daily DOXYCYCLINE HYCLATE 100 MG CAP 634749 DOXYCYCLINE HYCLATE Inactive Advance Directives Directive Description Start Date NO HEROIC MEASURES Immunizations Vaccine Administration Date Value Standard Description Boostrix (Tetanus toxoid, reduced diphtheria toxoid and acellular pertussis vaccine, adsorbed), booster Boostrix [[id number]] tetanus toxoid, reduced diphtheria toxoid, and acellular pertussis vaccine, adsorbed Vital Signs Date Name Value Unit Range Description blood pressure, diastolic - 8462-4 87 mm[Hg] [...] E&M - 3141-9 215 [lb_av] Weight Measured Diagnostic Results Date Name [...] 1.44 m[iU]/mL 0.36-3.74 cholesterol, serum 144 mg/dL 706-519 7073/11/19 triglyceride, serum, fasting 172 mg/dL 30-200 HDL cholesterol, serum 30 mg/dL 32-96 LDL cholesterol, serum 80 mg/dL 0-130 sodium, serum 137 mmol/L 746-141 2321/11/19 potassium, serum 4.1 mmol/L 3.5-5.2 chloride, serum [...] mg/dL Encounters Code Encounter Date Provider Facility CPT-17604 Level 3 Est. Patient 15:50:27 COST AND RISK ANALYSIS MANAGER Najma Vaughn SAMI [facility] CPT-05928 Level 4 Est. Patient 21:20:00 COST AND RISK ANALYSIS MANAGER Ian Valdez MD [facility] CPT-11089 Level 3 Est. Patient 15:32:41 COST AND RISK ANALYSIS MANAGER Juan Smith MD [facility] CPT-27950 Level 3 Est. Patient 14:45:01 CDT Eva Ferrara MD PhD [facility] CPT-22918 Level 3 Est. Patient 14:54:10 CDT Ian Valdez MD [facility] CPT-06799 Level 4 Est. Patient 20:36:52 CDT Ian Valdez MD [facility] CPT-37278 Level 4 Est. Patient 11:14:30 COST AND RISK ANALYSIS MANAGER Ian Valdez MD [facility] CPT-83899 Level 3 Est. Patient 19:08:34 COST AND RISK ANALYSIS MANAGER Ian Valdez MD [facility] CPT-90495 Level 3 Est. Patient 13:17:39 COST AND RISK ANALYSIS MANAGER Ian Valdez MD [facility] CPT-30329 Level 4 Est. Patient 18:56:10 CDT Ian Valdez MD [facility] CPT-78996 Level 4 Est. Patient 16:55:56 CDT Ian Valdez MD [facility] CPT-97526 Level 3 Est. Patient 11:27:07 CDT Ian Valdez MD [facility] CPT-64414 Level 3 Est. Patient 15:17:44 CDT Law Rosas [facility] CPT-52660 Level 4 Est. Patient 15:13:53 CDT Wellington Muniz [facility] CPT-00780 Level 3 Est. Patient 14:25:12 COST AND RISK ANALYSIS MANAGER Ian Valdez MD [facility] CPT-86910 Level 3 Est. Patient 10:24:46 CDT Ian Valdez MD [facility] CPT-82890 Level 3 Est. Patient 15:34:19 CDT Ian Valdez MD [facility] CPT-24298 Level 3 Est. Patient 14:22:41 CDT Ian Valdez MD [facility] CPT-15632 Level 3 Est. Patient 15:07:22 COST AND RISK ANALYSIS MANAGER Ian Valdez MD [facility] CPT-46178 Level 3 New Patient 09:06:43 COST AND RISK ANALYSIS MANAGER Ian Valdez MD [facility] CPT-24219 Level 3 Est. Patient 15:09:00 COST AND RISK ANALYSIS MANAGER Ian Valdez MD [facility] Procedures Code Procedure Name Date Entry Date Standard Description CPT-OV Office Visit 16:24:22 CDT CPT-OV Office Visit 15:15:29 COST AND RISK ANALYSIS MANAGER CPT-OV Office Visit 15:49:26 COST AND RISK ANALYSIS MANAGER CPT-J1885 Toradol 60 mg (Ketorolac) 15:37:32 CDT CPT-48429 Abx/Therapy Injection 15:37:32 CDT CPT-J1885 Toradol 60 mg (Ketorolac) 14:45:01 CDT CPT-OV Office Visit 15:19:52 CDT CPT-OV Office Visit 10:41:01 CDT CPT-27807 Core biop breast wo imaging 16:50:06 CDT CPT-OV Office Visit 16:50:05 CDT CPT-18433 UHCG (floor use only) 13:39:36 CDT CPT-77009 Nexplanon Placement 10:11:48 CDT CPT-J7307 Nexplanon (Implant) 10:11:48 CDT CPT-OV Office Visit 09:54:18 CDT CPT-49022 EKG Trac and Interp 16:50:19 CDT CPT-81033 Venipuncture Draw Fee 15:06:08 CDT CPT-J2930 Solu Medrol 125 mg (Methyl Prednisolone Sodium Succinate) 12:44:46 CDT CPT-J1055 Depo Provera 150 mg (Medroxyprogesterone) 12:44:46 CDT CPT-39503 Abx/Therapy Injection 12:44:46 CDT CPT-J1055 Depo Provera 150 mg (Medroxyprogesterone) 14:28:41 CDT CPT-J2930 Solu Medrol 125 mg (Methyl Prednisolone Sodium Succinate) 14:22:41 CDT CPT-86440 Administration single or combination vaccine inc oral 10 :08:06 CDT CPT-91091 Tdap 10:08:06 CDT CPT-G0402 Wlcm To Medicare Ex 22:17:30 CDT CPT-38005 Venipuncture Draw Fee 10:33:07 COST AND RISK ANALYSIS MANAGER CPT-27575 Venipuncture Draw Fee 10:17:37 COST AND RISK ANALYSIS MANAGER CPT-G0403 EKG Wlc To Medicare 22:17:30 CDT
--- OUTSIDE RECORDS SUMMARY | 2018-07-17 21:53 | XMS REPORT | Clinical Summary ---
Author Author Admin, ARIAN Organization [facility] Address Unknown Phone Unavailable Allergies, Adverse [...] cap by mouth twice daily DOXYCYCLINE HYCLATE 72642701943 No Longer Active Najma Vaughn APRN Active MULTIVITAMINS CAPS 1 tablet daily MULTIPLE VITAMIN 67432659681 Active Juan Smith MD Active CYCLOBENZAPRINE HCL 10 MG TABS 1/2 - 1 tab by mouth three times daily if needed for spasms/pain CYCLOBENZAPRINE HCL 04107557270 Active Ian Valdez MD Active GLUCOPHAGE 500 MG TABS 1 tab BID with morning and night meals METFORMIN HCL 74046759769 Active Eva Ferrara MD PhD Active PROGESTERONE MICRONIZED 100 MG CAPS 2 caps daily day 16 thru 25 of cycle 2013 PROGESTERONE MICRONIZED 92090383114 Active Eva Ferrara MD PhD Active TERBINAFINE HCL 1 % CREA Apply bid to rash TERBINAFINE HCL 25129683021 No Longer Active Eva Ferrara MD PhD Active TOPAMAX 25 MG TABS 1 tab po qhs x 1 week, then take 2 tabs po qhs TOPIRAMATE 57676694219 No Longer Active Thom Gilbert MD Active ULTRAM 50 MG TAB take 1 tab po q6hrs prn pain TRAMADOL HCL 99610084553 Active Ian Valdez MD Active LAMISIL AT 1 % CREA apply bid to rash TERBINAFINE HCL 97956387584 No Longer Active Thom Gilbert MD Active TERBINAFINE HCL 250 MG TABS 1 qDay TERBINAFINE HCL 08016654706 No Longer Active Ian Valdez MD Active XANAX 0.25 MG TABS take 1 tab po bid prn anxiety. ALPRAZOLAM 14322260192 No Longer Active Ian Valdez MD Active FISH OIL 1000 MG CAPS 2 caps PO once daily at bedtime OMEGA-3 FATTY ACIDS 63229631765 No Longer Active Ian Valdez MD Active KLOR-CON M20 20 MEQ CR-TABS take 1 tab po qday with lasix POTASSIUM CHLORIDE GALILEO CR 45754697850 Active Ian Valdez MD Active LASIX 20 MG TAB 1 tablet by mouth daily prn swelling FUROSEMIDE 43392811123 Active Ian Valdez MD Active FLONASE 50 MCG/ACT SUSP 2 puffs in each nostril once daily at bedtime FLUTICASONE PROPIONATE 47086279406 Active Ian Valdez MD Active CVS MELATONIN 3 MG TABS 2 tabs PO at bedtime MELATONIN 11072468025 Active Ian Valdez MD Active PULMICORT FLEXHALER 180 MCG/ACT AEPB 2 INH BID BUDESONIDE 52223556936 No Longer Active Ian Valdez MD Active METFORMIN HCL 500 MG TB24 1 TAB PO Q HS METFORMIN HCL 38935605106 No Longer Active Ian Valdez MD Active CYCLOBENZAPRINE HCL 10 MG TABS 1 PO q 8 hrs PRN muscle spasm 2012 CYCLOBENZAPRINE HCL 10755499292 No Longer Active Ian Valdez MD Active AZITHROMYCIN 500 MG TABS 1 PO q day x 6 days AZITHROMYCIN 85918215043 No Longer Active Ian Valdez MD Active CIPRO 500 MG TAB 1 tablet by mouth twice daily CIPROFLOXACIN HCL 48526861403 No Longer Active Ian Valdez MD Active PREDNISONE 20 MG TABS 3 qd x 2d, 2 qd x 2d, 1 qd x 2d, 1/2 qd x 2d PREDNISONE 05336605393 No Longer Active Law FIGUEROA Active CELEXA 40 MG TABS 2 PO DAILY CITALOPRAM HYDROBROMIDE 27124405342 Active Ian Valdez MD Active OMEPRAZOLE 20 MG CPDR 1 tablet by mouth daily OMEPRAZOLE 56907958489 No Longer Active [place] FIGUEROA Active KLONOPIN 0.5 MG TABS 1 TABLET PO PRN CLONAZEPAM 61239881724 No Longer Active [place] FIGUEROA Active MOBIC 7.5 MG TABS 1 tablet by mouthonce a day MELOXICAM 15671642956 No Longer Active [place] FIGUEROA Active ZITHROMAX 1 GM PACK DIRECTED AZITHROMYCIN 48199031068 No Longer Active Ian Valdez MD Active ALBUTEROL SULFATE 0.083 % NEBU SOLN one vial per nebulizer every 4-6 hours as needed ALBUTEROL SULFATE 24734765761 Active Ian Valdez MD Active CHANTIX STARTING MONTH REBEKAH 0.5 MG X 11 & 1 MG X 42 TABS 0.5mg daily for 3 days , then 0.5mg BID for 4 days, then 1mg BID VARENICLINE TARTRATE 62260974281 No Longer Active Ian Valdez MD Active ZITHROMAX 1 GM PACK DIRECTED AZITHROMYCIN 00896204762 No Longer Active Ian Valdez MD Active AURALGAN 1.4-5.5 % SOLN BENZOCAINE-ANTIPYRINE 14028436299 No Longer Active Ian Valdez MD Active PREDNISONE 20 MG TAB 3 tabs daily for 3 days, 2 tab daily for 3 days, 1 tab daily for 2 days, then 1/2 tab dialy for 2 days PREDNISONE 33621080426 No Longer Active Ian Valdez MD Active SIMVASTATIN 40 MG TABS 1 TABLET PO Q HS SIMVASTATIN 56927570314 Active Ian Valdez MD Active SIMVASTATIN 80 MG TABS Take one by mouth daily SIMVASTATIN 46982730687 No Longer Active Ian Valdez MD Active PREDNISONE 20 MG TAB 2 tabs daily for 3 days, 1 tab daily for 3 days, 1/2 tab daily for 2 days PREDNISONE 65909240780 No Longer Active Ian Valdez MD Active ZITHROMAX 250 MG TAB 2 po today, then 1 po q days 2-5 AZITHROMYCIN 97823451570 No Longer Active Ian Valdez MD Active TRAZODONE HCL 100 MG TABS 2 TABS PO Q HS TRAZODONE HCL 63772479694 Active Ian Valdez MD Active ZITHROMAX 250 MG TAB 2 po today, then 1 po q days 2-5 AZITHROMYCIN 52389864063 No Longer Active Ian Valdez MD Active SIMVASTATIN 80 MG TABS Take one by mouth daily SIMVASTATIN 80 MG TABS 656328 SIMVASTATIN Inactive AURALGAN 1.4-5.5 % SOLN AURALGAN 1.4-5.5 % SOLN BENZOCAINE-ANTIPYRINE Inactive ZITHROMAX 1 GM PACK DIRECTED ZITHROMAX 1 GM PACK 569362 AZITHROMYCIN Inactive CHANTIX STARTING MONTH REBEKAH 0.5 MG X 11 & 1 MG X 42 TABS 0.5mg daily for 3 days , then 0.5mg BID for 4 days, then 1mg BID CHANTIX STARTING MONTH REBEKAH 0.5 MG X 11 & 1 MG X 42 TABS VARENICLINE TARTRATE Inactive ZITHROMAX 1 GM PACK DIRECTED ZITHROMAX 1 GM PACK 402247 AZITHROMYCIN Inactive MOBIC 7.5 MG TABS 1 tablet by mouthonce a day MOBIC 7.5 MG TABS 827327 MELOXICAM Inactive KLONOPIN 0.5 MG TABS 1 TABLET PO PRN KLONOPIN 0.5 MG TABS 122082 CLONAZEPAM Inactive CIPRO 500 MG TAB 1 tablet by mouth twice daily CIPRO 500 MG TAB 140013 CIPROFLOXACIN HCL Inactive AZITHROMYCIN 500 MG TABS 1 PO q day x 6 days AZITHROMYCIN 500 MG TABS 4064114 AZITHROMYCIN Inactive CYCLOBENZAPRINE HCL 10 MG TABS 1 PO q 8 hrs PRN muscle spasm 2012 CYCLOBENZAPRINE HCL 10 MG TABS 985683 CYCLOBENZAPRINE HCL Inactive METFORMIN HCL 500 MG [...] bid prn anxiety. XANAX 0.25 MG TABS 666596 ALPRAZOLAM Inactive LAMISIL AT 1 % CREA apply bid to rash LAMISIL AT 1 % CREA 372319 TERBINAFINE HCL Inactive TOPAMAX 25 MG TABS 1 tab po qhs x 1 week, then take 2 tabs po qhs TOPAMAX 25 MG TABS 529742 TOPIRAMATE Inactive TERBINAFINE HCL 1 % CREA Apply bid to rash TERBINAFINE HCL 1 % CREA 165387 TERBINAFINE HCL Inactive ZITHROMAX 250 MG TAB 2 po today, then 1 po q days 2-5 ZITHROMAX 250 MG TAB 0000168 AZITHROMYCIN Inactive ZITHROMAX 250 MG TAB 2 po today, then 1 po q days 2-5 ZITHROMAX 250 MG TAB 1747307 AZITHROMYCIN Inactive PREDNISONE 20 MG TAB 2 tabs daily for 3 days, 1 tab daily for 3 days, 1/2 tab daily for 2 days PREDNISONE 20 MG TAB 026132 PREDNISONE Inactive PREDNISONE 20 MG TAB 3 tabs daily for 3 days, 2 tab daily for 3 days, 1 tab daily for 2 days, then 1/2 tab dialy for 2 days PREDNISONE 20 MG TAB 325174 PREDNISONE Inactive OMEPRAZOLE 20 MG CPDR 1 tablet by mouth daily OMEPRAZOLE 20 MG CPDR 853946 OMEPRAZOLE Inactive PREDNISONE 20 MG TABS 3 qd x 2d, 2 qd x 2d, 1 qd x 2d, 1/2 qd x 2d PREDNISONE 20 MG TABS 446186 PREDNISONE Inactive TERBINAFINE HCL 250 MG TABS 1 qDay TERBINAFINE HCL 250 MG TABS 247041 TERBINAFINE HCL Inactive DOXYCYCLINE HYCLATE 100 MG CAP 1 cap by mouth twice daily DOXYCYCLINE HYCLATE 100 MG CAP 923528 DOXYCYCLINE HYCLATE Inactive Advance Directives Directive Description Start Date NO HEROIC MEASURES Immunizations Vaccine Administration Date Value Standard Description Boostrix (Tetanus toxoid, reduced diphtheria toxoid and acellular pertussis vaccine, adsorbed), booster Boostrix [PQC641] tetanus toxoid, reduced diphtheria toxoid, and acellular [...] 1.44 m[iU]/mL 0.36-3.74 cholesterol, serum 144 mg/dL 039-631 5282/11/19 triglyceride, serum, fasting 172 mg/dL 30-200 HDL cholesterol, serum 30 mg/dL 32-96 LDL cholesterol, serum 80 mg/dL 0-130 sodium, serum 137 mmol/L 154-945 6533/11/19 potassium, serum 4.1 mmol/L 3.5-5.2 chloride, serum [...] mg/dL Encounters Code Encounter Date Provider Facility CPT-30013 Level 3 Est. Patient 15:50:27 PAINTING CONTRACTOR Najma Vaughn SAMI [facility] CPT-49816 Level 4 Est. Patient 21:20:00 PAINTING CONTRACTOR Ian Valdez MD [facility] CPT-59106 Level 3 Est. Patient 15:32:41 PAINTING CONTRACTOR Juan Smith MD [facility] CPT-07409 Level 3 Est. Patient 14:45:01 CDT Eva Ferrara MD PhD [facility] CPT-72001 Level 3 Est. Patient 14:54:10 CDT Ian Valdez MD [facility] CPT-17003 Level 4 Est. Patient 20:36:52 CDT Ian Valdez MD [facility] CPT-30204 Level 4 Est. Patient 11:14:30 PAINTING CONTRACTOR Ian Valdez MD [facility] CPT-65426 Level 3 Est. Patient 19:08:34 PAINTING CONTRACTOR Ian Valdez MD [facility] CPT-55415 Level 3 Est. Patient 13:17:39 PAINTING CONTRACTOR Ian Valdez MD [facility] CPT-64744 Level 4 Est. Patient 18:56:10 CDT Ian Valdez MD [facility] CPT-48692 Level 4 Est. Patient 16:55:56 CDT Ian Valdez MD [facility] CPT-69913 Level 3 Est. Patient 11:27:07 CDT Ian Valdez MD [facility] CPT-93101 Level 3 Est. Patient 15:17:44 CDT Law Rosas [facility] CPT-29831 Level 4 Est. Patient 15:13:53 CDT Wellington Muniz [facility] CPT-18970 Level 3 Est. Patient 14:25:12 PAINTING CONTRACTOR Ian Valdez MD [facility] CPT-43669 Level 3 Est. Patient 10:24:46 CDT Ian Valdez MD [facility] CPT-93244 Level 3 Est. Patient 15:34:19 CDT Ian Valdez MD [facility] CPT-25581 Level 3 Est. Patient 14:22:41 CDT Ian Valdez MD [facility] CPT-97714 Level 3 Est. Patient 15:07:22 PAINTING CONTRACTOR Ian Valdez MD [facility] CPT-40964 Level 3 New Patient 09:06:43 PAINTING CONTRACTOR Ian Valdez MD [facility] CPT-88945 Level 3 Est. Patient 15:09:00 PAINTING CONTRACTOR Ian Valdez MD [facility] Procedures Code Procedure Name Date Entry Date Standard Description CPT-OV Office Visit 16:24:22 CDT CPT-OV Office Visit 15:15:29 PAINTING CONTRACTOR CPT-OV Office Visit 15:49:26 PAINTING CONTRACTOR CPT-J1885 Toradol 60 mg (Ketorolac) 15:37:32 CDT CPT-55351 Abx/Therapy Injection 15:37:32 CDT CPT-J1885 Toradol 60 mg (Ketorolac) 14:45:01 CDT CPT-OV Office Visit 15:19:52 CDT CPT-OV Office Visit 10:41:01 CDT CPT-31940 Core biop breast wo imaging 16:50:06 CDT CPT-OV Office Visit 16:50:05 CDT CPT-57494 UHCG (floor use only) 13:39:36 CDT CPT-17277 Nexplanon Placement 10:11:48 CDT CPT-J7307 Nexplanon (Implant) 10:11:48 CDT CPT-OV Office Visit 09:54:18 CDT CPT-51882 EKG Trac and Interp 16:50:19 CDT CPT-02903 Venipuncture Draw Fee 15:06:08 CDT CPT-J2930 Solu Medrol 125 mg (Methyl Prednisolone Sodium Succinate) 12:44:46 CDT CPT-J1055 Depo Provera 150 mg (Medroxyprogesterone) 12:44:46 CDT CPT-71360 Abx/Therapy Injection 12:44:46 CDT CPT-J1055 Depo Provera 150 mg (Medroxyprogesterone) 14:28:41 CDT CPT-J2930 Solu Medrol 125 mg (Methyl Prednisolone Sodium Succinate) 14:22:41 CDT CPT-85935 Administration single or combination vaccine inc oral 10 :08:06 CDT CPT-92465 Tdap 10:08:06 CDT CPT-G0402 Wlcm To Medicare Ex 22:17:30 CDT CPT-79575 Venipuncture Draw Fee 10:33:07 PAINTING CONTRACTOR CPT-37331 Venipuncture Draw Fee 10:17:37 PAINTING CONTRACTOR CPT-G0403 EKG Wlc To Medicare 22:17:30 CDT
--- OUTSIDE RECORDS SUMMARY | 2018-07-17 21:54 | XMS REPORT | Clinical Summary ---
Author Author Admin, ARIAN Organization [facility] Address Unknown Phone Unavailable Allergies, [...] Vaughn APRN Influenza with other respiratory manifestations Depression, major 296.20 Active Susana Elder Major depressive disorder, single episode, unspecified degree SINUSITIS ICD-473.9 Inactive Ian Valdez MD SCABIES [...] cap by mouth twice daily DOXYCYCLINE HYCLATE 56283149054 No Longer Active Najma Vaughn SAMI Active MULTIVITAMINS CAPS 1 tablet daily MULTIPLE VITAMIN 24714011629 Active Juan Smith MD Active CYCLOBENZAPRINE HCL 10 MG TABS 1/2 - 1 tab by mouth three times daily if needed for spasms/pain CYCLOBENZAPRINE HCL 92711677636 Active Ian Valdez MD Active GLUCOPHAGE 500 MG TABS 1 tab BID with morning and night meals METFORMIN HCL 48570987370 Active Eva Ferrara MD PhD Active PROGESTERONE MICRONIZED 100 MG CAPS 2 caps daily day 16 thru 25 of cycle 2013 PROGESTERONE MICRONIZED 50290508724 Active Eva Ferrara MD PhD Active TERBINAFINE HCL 1 % CREA Apply bid to rash TERBINAFINE HCL 93399868363 No Longer Active Eva Ferrara MD PhD Active TOPAMAX 25 MG TABS 1 tab po qhs x 1 week, then take 2 tabs po qhs TOPIRAMATE 65147668916 No Longer Active Thom Gilbert MD Active ULTRAM 50 MG TAB take 1 tab po q6hrs prn pain TRAMADOL HCL 28739098802 Active Juan Smith MD Active LAMISIL AT 1 % CREA apply bid to rash TERBINAFINE HCL 76649841325 No Longer Active Thom Gilbert MD Active TERBINAFINE HCL 250 MG TABS 1 qDay TERBINAFINE HCL 01117247300 No Longer Active Ian Valdez MD Active XANAX 0.25 MG TABS take 1 tab po bid prn anxiety. ALPRAZOLAM 71350211405 No Longer Active Ian Valdez MD Active FISH OIL 1000 MG CAPS 2 caps PO once daily at bedtime OMEGA-3 FATTY ACIDS 80327860527 No Longer Active Ian Valdez MD Active KLOR-CON M20 20 MEQ CR-TABS take 1 tab po qday with lasix POTASSIUM CHLORIDE GALILEO CR 20358805466 Active Ian Valdez MD Active LASIX 20 MG TAB 1 tablet by mouth daily prn swelling FUROSEMIDE 05690027762 Active Ian Valdez MD Active FLONASE 50 MCG/ACT SUSP 2 puffs in each nostril once daily at bedtime FLUTICASONE PROPIONATE 59525878368 Active Ian Valdez MD Active CVS MELATONIN 3 MG TABS 2 tabs PO at bedtime MELATONIN 10084688099 Active Ian Valdez MD Active PULMICORT FLEXHALER 180 MCG/ACT AEPB 2 INH BID BUDESONIDE 59024176979 No Longer Active Ian Valdez MD Active METFORMIN HCL 500 MG TB24 1 TAB PO Q HS METFORMIN HCL 55380804348 No Longer Active Ian Valdez MD Active CYCLOBENZAPRINE HCL 10 MG TABS 1 PO q 8 hrs PRN muscle spasm 2012 CYCLOBENZAPRINE HCL 27754089120 No Longer Active Ian Valdez MD Active AZITHROMYCIN 500 MG TABS 1 PO q day x 6 days AZITHROMYCIN 18401320052 No Longer Active Ian Valdez MD Active CIPRO 500 MG TAB 1 tablet by mouth twice daily CIPROFLOXACIN HCL 21840886797 No Longer Active Ian Valdez MD Active PREDNISONE 20 MG TABS 3 qd x 2d, 2 qd x 2d, 1 qd x 2d, 1/2 qd x 2d PREDNISONE 87701008784 No Longer Active Law FIGUEROA Active CELEXA 40 MG TABS 2 PO DAILY CITALOPRAM HYDROBROMIDE 94314252282 Active Ian Valdez MD Active OMEPRAZOLE 20 MG CPDR 1 tablet by mouth daily OMEPRAZOLE 32713607025 No Longer Active [place] FIGUEROA Active KLONOPIN 0.5 MG TABS 1 TABLET PO PRN CLONAZEPAM 47250256302 No Longer Active [place] FIGUEROA Active MOBIC 7.5 MG TABS 1 tablet by mouthonce a day MELOXICAM 02144102962 No Longer Active [place] FIGUEROA Active ZITHROMAX 1 GM PACK DIRECTED AZITHROMYCIN 25090060215 No Longer Active Ian Valdez MD Active ALBUTEROL SULFATE 0.083 % NEBU SOLN one vial per nebulizer every 4-6 hours as needed ALBUTEROL SULFATE 48574621982 Active Ian Valdez MD Active CHANTIX STARTING MONTH REBEKAH 0.5 MG X 11 & 1 MG X 42 TABS 0.5mg daily for 3 days , then 0.5mg BID for 4 days, then 1mg BID VARENICLINE TARTRATE 87596310313 No Longer Active Ian Valdez MD Active ZITHROMAX 1 GM PACK DIRECTED AZITHROMYCIN 46921355271 No Longer Active Ian Valdez MD Active AURALGAN 1.4-5.5 % SOLN BENZOCAINE-ANTIPYRINE 27276247167 No Longer Active Ian Valdez MD Active PREDNISONE 20 MG TAB 3 tabs daily for 3 days, 2 tab daily for 3 days, 1 tab daily for 2 days, then 1/2 tab dialy for 2 days PREDNISONE 40345579404 No Longer Active Ian Valdez MD Active SIMVASTATIN 40 MG TABS 1 TABLET PO Q HS SIMVASTATIN 73375427591 Active Ian Valdez MD Active SIMVASTATIN 80 MG TABS Take one by mouth daily SIMVASTATIN 20707313991 No Longer Active Ian Valdez MD Active PREDNISONE 20 MG TAB 2 tabs daily for 3 days, 1 tab daily for 3 days, 1/2 tab daily for 2 days PREDNISONE 80031607070 No Longer Active Ian Valdez MD Active ZITHROMAX 250 MG TAB 2 po today, then 1 po q days 2-5 AZITHROMYCIN 77902878426 No Longer Active Ian Valdez MD Active TRAZODONE HCL 100 MG TABS 2 TABS PO Q HS TRAZODONE HCL 26651830619 Active Ian Valdez MD Active ZITHROMAX 250 MG TAB 2 po today, then 1 po q days 2-5 AZITHROMYCIN 85703175695 No Longer Active Ian Valdez MD Active SIMVASTATIN 80 MG TABS Take one by mouth daily SIMVASTATIN 80 MG TABS 543791 SIMVASTATIN Inactive AURALGAN 1.4-5.5 % SOLN AURALGAN 1.4-5.5 % SOLN BENZOCAINE-ANTIPYRINE Inactive ZITHROMAX 1 GM PACK DIRECTED ZITHROMAX 1 GM PACK 734288 AZITHROMYCIN Inactive CHANTIX STARTING MONTH REBEKAH 0.5 MG X 11 & 1 MG X 42 TABS 0.5mg daily for 3 days , then 0.5mg BID for 4 days, then 1mg BID CHANTIX STARTING MONTH REBEKAH 0.5 MG X 11 & 1 MG X 42 TABS VARENICLINE TARTRATE Inactive ZITHROMAX 1 GM PACK DIRECTED ZITHROMAX 1 GM PACK 107555 AZITHROMYCIN Inactive MOBIC 7.5 MG TABS 1 tablet by mouthonce a day MOBIC 7.5 MG TABS 814878 MELOXICAM Inactive KLONOPIN 0.5 MG TABS 1 TABLET PO PRN KLONOPIN 0.5 MG TABS 249716 CLONAZEPAM Inactive CIPRO 500 MG TAB 1 tablet by mouth twice daily CIPRO 500 MG TAB 267233 CIPROFLOXACIN HCL Inactive AZITHROMYCIN 500 MG TABS 1 PO q day x 6 days AZITHROMYCIN 500 MG TABS 7208268 AZITHROMYCIN Inactive CYCLOBENZAPRINE HCL 10 MG TABS 1 PO q 8 hrs PRN muscle spasm 2012 CYCLOBENZAPRINE HCL 10 MG TABS 527836 CYCLOBENZAPRINE HCL Inactive METFORMIN HCL 500 MG [...] bid prn anxiety. XANAX 0.25 MG TABS 016796 ALPRAZOLAM Inactive LAMISIL AT 1 % CREA apply bid to rash LAMISIL AT 1 % CREA 925580 TERBINAFINE HCL Inactive TOPAMAX 25 MG TABS 1 tab po qhs x 1 week, then take 2 tabs po qhs TOPAMAX 25 MG TABS 410362 TOPIRAMATE Inactive TERBINAFINE HCL 1 % CREA Apply bid to rash TERBINAFINE HCL 1 % CREA 060513 TERBINAFINE HCL Inactive ZITHROMAX 250 MG TAB 2 po today, then 1 po q days 2-5 ZITHROMAX 250 MG TAB 5122421 AZITHROMYCIN Inactive ZITHROMAX 250 MG TAB 2 po today, then 1 po q days 2-5 ZITHROMAX 250 MG TAB 8153961 AZITHROMYCIN Inactive PREDNISONE 20 MG TAB 2 tabs daily for 3 days, 1 tab daily for 3 days, 1/2 tab daily for 2 days PREDNISONE 20 MG TAB 695954 PREDNISONE Inactive PREDNISONE 20 MG TAB 3 tabs daily for 3 days, 2 tab daily for 3 days, 1 tab daily for 2 days, then 1/2 tab dialy for 2 days PREDNISONE 20 MG TAB 448932 PREDNISONE Inactive OMEPRAZOLE 20 MG CPDR 1 tablet by mouth daily OMEPRAZOLE 20 MG CPDR 601132 OMEPRAZOLE Inactive PREDNISONE 20 MG TABS 3 qd x 2d, 2 qd x 2d, 1 qd x 2d, 1/2 qd x 2d PREDNISONE 20 MG TABS 072507 PREDNISONE Inactive TERBINAFINE HCL 250 MG TABS 1 qDay TERBINAFINE HCL 250 MG TABS 243896 TERBINAFINE HCL Inactive DOXYCYCLINE HYCLATE 100 MG CAP 1 cap by mouth twice daily DOXYCYCLINE HYCLATE 100 MG CAP 249612 DOXYCYCLINE HYCLATE Inactive Advance Directives Directive Description Start Date NO HEROIC MEASURES Immunizations Vaccine Administration Date Value Standard Description Boostrix (Tetanus toxoid, reduced diphtheria toxoid and acellular pertussis vaccine, adsorbed), booster Boostrix [MFX540] tetanus toxoid, reduced diphtheria toxoid, and acellular [...] 5.3 % 4.3-6.0 sodium, serum 139 mmol/L 630-584 4565/02/24 potassium, serum 4.4 mmol/L 3.5-5.2 chloride, serum [...] 1.44 m[iU]/mL 0.36-3.74 cholesterol, serum 144 mg/dL 319-754 9105/11/19 triglyceride, serum, fasting 172 mg/dL 30-200 HDL cholesterol, serum 30 mg/dL 32-96 LDL cholesterol, serum 80 mg/dL 0-130 sodium, serum 137 mmol/L 144-471 6231/11/19 potassium, serum 4.1 mmol/L 3.5-5.2 chloride, serum [...] Panel - Chemistry cholesterol, serum 118 mg/dL 860-249 2602/02/24 triglyceride, serum, fasting 141 mg/dL 30-200 HDL [...] mg/dL Encounters Code Encounter Date Provider Facility CPT-18476 Level 3 Est. Patient 15:50:27 TIME CLOCK MECHANIC Najma Vaughn APRN [facility] CPT-69208 Level 4 Est. Patient 21:20:00 TIME CLOCK MECHANIC Ian Valdez MD [facility] CPT-70381 Level 3 Est. Patient 15:32:41 TIME CLOCK MECHANIC Juan Smith MD [facility] CPT-34775 Level 3 Est. Patient 14:45:01 CDT Eva Ferrara MD PhD [facility] CPT-64169 Level 3 Est. Patient 14:54:10 CDT Ian Valdez MD [facility] CPT-29034 Level 4 Est. Patient 20:36:52 CDT Ian Valdez MD [facility] CPT-47590 Level 4 Est. Patient 11:14:30 TIME CLOCK MECHANIC Ian Valdez MD [facility] CPT-64888 Level 3 Est. Patient 19:08:34 TIME CLOCK MECHANIC Ian Valdez MD [facility] CPT-75758 Level 3 Est. Patient 13:17:39 TIME CLOCK MECHANIC Ian Valdez MD [facility] CPT-96364 Level 4 Est. Patient 18:56:10 CDT Ian Valdez MD [facility] CPT-17869 Level 4 Est. Patient 16:55:56 CDT Ian Valdez MD [facility] CPT-20120 Level 3 Est. Patient 11:27:07 CDT Ian Valdez MD [facility] CPT-71801 Level 3 Est. Patient 15:17:44 CDT Law Rosas [facility] CPT-06012 Level 4 Est. Patient 15:13:53 CDT Wellington Muniz [facility] CPT-84401 Level 3 Est. Patient 14:25:12 TIME CLOCK MECHANIC Ian Valdez MD [facility] CPT-49493 Level 3 Est. Patient 10:24:46 CDT Ian Valdez MD [facility] CPT-42687 Level 3 Est. Patient 15:34:19 CDT Ian Valdez MD [facility] CPT-79072 Level 3 Est. Patient 14:22:41 CDT Ian Valdez MD [facility] CPT-17006 Level 3 Est. Patient 15:07:22 TIME CLOCK MECHANIC Ian Valdez MD [facility] CPT-00342 Level 3 New Patient 09:06:43 TIME CLOCK MECHANIC Ian Valdez MD [facility] CPT-59217 Level 3 Est. Patient 15:09:00 TIME CLOCK MECHANIC Ian Valdez MD [facility] Procedures Code Procedure Name Date Entry Date Standard Description CPT-OV Office Visit 15:49:26 TIME CLOCK MECHANIC CPT-J1885 Toradol 60 mg (Ketorolac) 15:37:32 CDT CPT-23646 Abx/Therapy Injection 15:37:32 CDT CPT-J1885 Toradol 60 mg (Ketorolac) 14:45:01 CDT CPT-OV Office Visit 15:19:52 CDT CPT-OV Office Visit 10:41:01 CDT CPT-83966 Core biop breast wo imaging 16:50:06 CDT CPT-OV Office Visit 16:50:05 CDT CPT-90349 UHCG (floor use only) 13:39:36 CDT CPT-41974 Nexplanon Placement 10:11:48 CDT CPT-J7307 Nexplanon (Implant) 10:11:48 CDT CPT-OV Office Visit 09:54:18 CDT CPT-15600 EKG Trac and Interp 16:50:19 CDT CPT-75760 Venipuncture Draw Fee 15:06:08 CDT CPT-J2930 Solu Medrol 125 mg (Methyl Prednisolone Sodium Succinate) 12:44:46 CDT CPT-J1055 Depo Provera 150 mg (Medroxyprogesterone) 12:44:46 CDT CPT-62126 Abx/Therapy Injection 12:44:46 CDT CPT-J1055 Depo Provera 150 mg (Medroxyprogesterone) 14:28:41 CDT CPT-J2930 Solu Medrol 125 mg (Methyl Prednisolone Sodium Succinate) 14:22:41 CDT CPT-25838 Administration single or combination vaccine inc oral 10 :08:06 CDT CPT-11102 Tdap 10:08:06 CDT CPT-G0402 Wl To Medicare Ex 22:17:30 CDT CPT-63090 Venipuncture Draw Fee 10:33:07 TIME CLOCK MECHANIC CPT-93790 Venipuncture Draw Fee 10:17:37 TIME CLOCK MECHANIC CPT-G0403 EKG Wl To Medicare 22:17:30 CDT
--- OUTSIDE RECORDS SUMMARY | 2018-07-17 21:55 | XMS REPORT | Clinical Summary ---
Author Author Admin, ARIAN Organization [facility] Address Unknown Phone Unavailable Allergies, Adverse [...] other respiratory manifestations SINUSITIS ICD-473.9 Inactive Ian Valedz MD SCABIES ICD-133.0 Inactive Ian Valdez MD [...] cap by mouth twice daily DOXYCYCLINE HYCLATE 13225644222 No Longer Active Najma Vaughn SAMI Active MULTIVITAMINS CAPS 1 tablet daily MULTIPLE VITAMIN 21435281231 Active Juan Smith MD Active CYCLOBENZAPRINE HCL 10 MG TABS 1/2 - 1 tab by mouth three times daily if needed for spasms/pain CYCLOBENZAPRINE HCL 42647795379 Active Ian Valdez MD Active GLUCOPHAGE 500 MG TABS 1 tab BID with morning and night meals METFORMIN HCL 87467224310 Active Eva Ferrara MD PhD Active PROGESTERONE MICRONIZED 100 MG CAPS 2 caps daily day 16 thru 25 of cycle 2013 PROGESTERONE MICRONIZED 00443138813 Active Eva Ferrara MD PhD Active TERBINAFINE HCL 1 % CREA Apply bid to rash TERBINAFINE HCL 29773249945 No Longer Active Eva Ferrara MD PhD Active TOPAMAX 25 MG TABS 1 tab po qhs x 1 week, then take 2 tabs po qhs TOPIRAMATE 49030813228 No Longer Active Thom Gilbert MD Active ULTRAM 50 MG TAB take 1 tab po q6hrs prn pain TRAMADOL HCL 14283729889 Active Juan Smith MD Active LAMISIL AT 1 % CREA apply bid to rash TERBINAFINE HCL 00071734903 No Longer Active Thom Gilbert MD Active TERBINAFINE HCL 250 MG TABS 1 qDay TERBINAFINE HCL 82162006416 No Longer Active Ian Valdez MD Active XANAX 0.25 MG TABS take 1 tab po bid prn anxiety. ALPRAZOLAM 82857884072 No Longer Active Ian Valdez MD Active FISH OIL 1000 MG CAPS 2 caps PO once daily at bedtime OMEGA-3 FATTY ACIDS 86903807966 No Longer Active Ian Valdez MD Active KLOR-CON M20 20 MEQ CR-TABS take 1 tab po qday with lasix POTASSIUM CHLORIDE GALILEO CR 05282566301 Active Ian Valdez MD Active LASIX 20 MG TAB 1 tablet by mouth daily prn swelling FUROSEMIDE 01673340300 Active Ian Valdez MD Active FLONASE 50 MCG/ACT SUSP 2 puffs in each nostril once daily at bedtime FLUTICASONE PROPIONATE 79784524521 Active Ian Valdez MD Active CVS MELATONIN 3 MG TABS 2 tabs PO at bedtime MELATONIN 43613676590 Active Ian Valdez MD Active PULMICORT FLEXHALER 180 MCG/ACT AEPB 2 INH BID BUDESONIDE 36249849126 No Longer Active Ian Valdez MD Active METFORMIN HCL 500 MG TB24 1 TAB PO Q HS METFORMIN HCL 07195374461 No Longer Active Ian Valdez MD Active CYCLOBENZAPRINE HCL 10 MG TABS 1 PO q 8 hrs PRN muscle spasm 2012 CYCLOBENZAPRINE HCL 19535019640 No Longer Active Ian Valdez MD Active AZITHROMYCIN 500 MG TABS 1 PO q day x 6 days AZITHROMYCIN 72308762218 No Longer Active Ian Valdez MD Active CIPRO 500 MG TAB 1 tablet by mouth twice daily CIPROFLOXACIN HCL 59427812815 No Longer Active Ian Valdez MD Active PREDNISONE 20 MG TABS 3 qd x 2d, 2 qd x 2d, 1 qd x 2d, 1/2 qd x 2d PREDNISONE 03707569788 No Longer Active Law FIGUEROA Active CELEXA 40 MG TABS 2 PO DAILY CITALOPRAM HYDROBROMIDE 96961450210 Active Ian Valdez MD Active OMEPRAZOLE 20 MG CPDR 1 tablet by mouth daily OMEPRAZOLE 21000709922 No Longer Active [place] FIGUEROA Active KLONOPIN 0.5 MG TABS 1 TABLET PO PRN CLONAZEPAM 04883291651 No Longer Active [place] FIGUEROA Active MOBIC 7.5 MG TABS 1 tablet by mouthonce a day MELOXICAM 70832107222 No Longer Active [place] FIGUEROA Active ZITHROMAX 1 GM PACK DIRECTED AZITHROMYCIN 12637230520 No Longer Active Ian Valdez MD Active ALBUTEROL SULFATE 0.083 % NEBU SOLN one vial per nebulizer every 4-6 hours as needed ALBUTEROL SULFATE 52212315164 Active Ian Valdez MD Active CHANTIX STARTING MONTH REBEKAH 0.5 MG X 11 & 1 MG X 42 TABS 0.5mg daily for 3 days , then 0.5mg BID for 4 days, then 1mg BID VARENICLINE TARTRATE 23570125485 No Longer Active Ian Valdez MD Active ZITHROMAX 1 GM PACK DIRECTED AZITHROMYCIN 30423729674 No Longer Active Ian Valdez MD Active AURALGAN 1.4-5.5 % SOLN BENZOCAINE-ANTIPYRINE 55158965305 No Longer Active Ian Valdez MD Active PREDNISONE 20 MG TAB 3 tabs daily for 3 days, 2 tab daily for 3 days, 1 tab daily for 2 days, then 1/2 tab dialy for 2 days PREDNISONE 76953490520 No Longer Active Ian Valdez MD Active SIMVASTATIN 40 MG TABS 1 TABLET PO Q HS SIMVASTATIN 21380386048 Active Ian Valdez MD Active SIMVASTATIN 80 MG TABS Take one by mouth daily SIMVASTATIN 51471673831 No Longer Active Ian Valdez MD Active PREDNISONE 20 MG TAB 2 tabs daily for 3 days, 1 tab daily for 3 days, 1/2 tab daily for 2 days PREDNISONE 45867951369 No Longer Active Ian Valdez MD Active ZITHROMAX 250 MG TAB 2 po today, then 1 po q days 2-5 AZITHROMYCIN 23403549832 No Longer Active Ian Valdez MD Active TRAZODONE HCL 100 MG TABS 2 TABS PO Q HS TRAZODONE HCL 49741984966 Active Ian Valdez MD Active ZITHROMAX 250 MG TAB 2 po today, then 1 po q days 2-5 AZITHROMYCIN 70995436793 No Longer Active Ian Valdez MD Active SIMVASTATIN 80 MG TABS Take one by mouth daily SIMVASTATIN 80 MG TABS 335133 SIMVASTATIN Inactive AURALGAN 1.4-5.5 % SOLN AURALGAN 1.4-5.5 % SOLN BENZOCAINE-ANTIPYRINE Inactive ZITHROMAX 1 GM PACK DIRECTED ZITHROMAX 1 GM PACK 271873 AZITHROMYCIN Inactive CHANTIX STARTING MONTH REBEKAH 0.5 MG X 11 & 1 MG X 42 TABS 0.5mg daily for 3 days , then 0.5mg BID for 4 days, then 1mg BID CHANTIX STARTING MONTH REBEKAH 0.5 MG X 11 & 1 MG X 42 TABS VARENICLINE TARTRATE Inactive ZITHROMAX 1 GM PACK DIRECTED ZITHROMAX 1 GM PACK 882552 AZITHROMYCIN Inactive MOBIC 7.5 MG TABS 1 tablet by mouthonce a day MOBIC 7.5 MG TABS 926452 MELOXICAM Inactive KLONOPIN 0.5 MG TABS 1 TABLET PO PRN KLONOPIN 0.5 MG TABS 751181 CLONAZEPAM Inactive CIPRO 500 MG TAB 1 tablet by mouth twice daily CIPRO 500 MG TAB 653018 CIPROFLOXACIN HCL Inactive AZITHROMYCIN 500 MG TABS 1 PO q day x 6 days AZITHROMYCIN 500 MG TABS 7450228 AZITHROMYCIN Inactive CYCLOBENZAPRINE HCL 10 MG TABS 1 PO q 8 hrs PRN muscle spasm 2012 CYCLOBENZAPRINE HCL 10 MG TABS 810131 CYCLOBENZAPRINE HCL Inactive METFORMIN HCL 500 MG [...] bid prn anxiety. XANAX 0.25 MG TABS 372895 ALPRAZOLAM Inactive LAMISIL AT 1 % CREA apply bid to rash LAMISIL AT 1 % CREA 141547 TERBINAFINE HCL Inactive TOPAMAX 25 MG TABS 1 tab po qhs x 1 week, then take 2 tabs po qhs TOPAMAX 25 MG TABS 796584 TOPIRAMATE Inactive TERBINAFINE HCL 1 % CREA Apply bid to rash TERBINAFINE HCL 1 % CREA 807013 TERBINAFINE HCL Inactive ZITHROMAX 250 MG TAB 2 po today, then 1 po q days 2-5 ZITHROMAX 250 MG TAB 1069378 AZITHROMYCIN Inactive ZITHROMAX 250 MG TAB 2 po today, then 1 po q days 2-5 ZITHROMAX 250 MG TAB 0324933 AZITHROMYCIN Inactive PREDNISONE 20 MG TAB 2 tabs daily for 3 days, 1 tab daily for 3 days, 1/2 tab daily for 2 days PREDNISONE 20 MG TAB 551650 PREDNISONE Inactive PREDNISONE 20 MG TAB 3 tabs daily for 3 days, 2 tab daily for 3 days, 1 tab daily for 2 days, then 1/2 tab dialy for 2 days PREDNISONE 20 MG TAB 730389 PREDNISONE Inactive OMEPRAZOLE 20 MG CPDR 1 tablet by mouth daily OMEPRAZOLE 20 MG CPDR 540932 OMEPRAZOLE Inactive PREDNISONE 20 MG TABS 3 qd x 2d, 2 qd x 2d, 1 qd x 2d, 1/2 qd x 2d PREDNISONE 20 MG TABS 589173 PREDNISONE Inactive TERBINAFINE HCL 250 MG TABS 1 qDay TERBINAFINE HCL 250 MG TABS 087435 TERBINAFINE HCL Inactive DOXYCYCLINE HYCLATE 100 MG CAP 1 cap by mouth twice daily DOXYCYCLINE HYCLATE 100 MG CAP 933844 DOXYCYCLINE HYCLATE Inactive Advance Directives Directive Description Start Date NO HEROIC MEASURES Immunizations Vaccine Administration Date Value Standard Description Boostrix (Tetanus toxoid, reduced diphtheria toxoid and acellular pertussis vaccine, adsorbed), booster Boostrix [[id number]] tetanus toxoid, reduced diphtheria toxoid, and acellular [...] 5.3 % 4.3-6.0 sodium, serum 139 mmol/L 271-871 4946/02/24 potassium, serum 4.4 mmol/L 3.5-5.2 chloride, serum [...] 1.44 m[iU]/mL 0.36-3.74 cholesterol, serum 144 mg/dL 764-387 7483/11/19 triglyceride, serum, fasting 172 mg/dL 30-200 HDL cholesterol, serum 30 mg/dL 32-96 LDL cholesterol, serum 80 mg/dL 0-130 sodium, serum 137 mmol/L 527-281 4129/11/19 potassium, serum 4.1 mmol/L 3.5-5.2 chloride, serum [...] Panel - Chemistry cholesterol, serum 118 mg/dL 839-887 6940/02/24 triglyceride, serum, fasting 141 mg/dL 30-200 HDL [...] mg/dL Encounters Code Encounter Date Provider Facility CPT-14655 Level 3 Est. Patient 15:50:27 MANAGER CUSTOMS Najma Vaughn APRN [facility] CPT-38580 Level 4 Est. Patient 21:20:00 MANAGER CUSTOMS Ian Valdez MD [facility] CPT-87738 Level 3 Est. Patient 15:32:41 MANAGER CUSTOMS Juan Smith MD [facility] CPT-95142 Level 3 Est. Patient 14:45:01 CDT Eva Ferrara MD PhD [facility] CPT-02773 Level 3 Est. Patient 14:54:10 CDT Ian Valdez MD [facility] CPT-25651 Level 4 Est. Patient 20:36:52 CDT Ian Valdez MD [facility] CPT-29555 Level 4 Est. Patient 11:14:30 MANAGER CUSTOMS Ian Valdez MD [facility] CPT-04122 Level 3 Est. Patient 19:08:34 MANAGER CUSTOMS Ian Valdez MD [facility] CPT-40850 Level 3 Est. Patient 13:17:39 MANAGER CUSTOMS Ian Valdez MD [facility] CPT-93891 Level 4 Est. Patient 18:56:10 CDT Ian Valdez MD [facility] CPT-66818 Level 4 Est. Patient 16:55:56 CDT Ian Valdez MD [facility] CPT-89750 Level 3 Est. Patient 11:27:07 CDT Ian Valdez MD [facility] CPT-52150 Level 3 Est. Patient 15:17:44 CDT Law Rosas [facility] CPT-13802 Level 4 Est. Patient 15:13:53 CDT Wellington Muniz [facility] CPT-66785 Level 3 Est. Patient 14:25:12 MANAGER CUSTOMS Ian Valdez MD [facility] CPT-36094 Level 3 Est. Patient 10:24:46 CDT Ian Valdez MD [facility] CPT-88077 Level 3 Est. Patient 15:34:19 CDT Ian Valdez MD [facility] CPT-33080 Level 3 Est. Patient 14:22:41 CDT Ian Valdez MD [facility] CPT-33468 Level 3 Est. Patient 15:07:22 MANAGER CUSTOMS Ian Valdez MD [facility] CPT-51031 Level 3 New Patient 09:06:43 MANAGER CUSTOMS Ian Valdez MD [facility] CPT-66776 Level 3 Est. Patient 15:09:00 MANAGER CUSTOMS Ian Valdez MD [facility] Procedures Code Procedure Name Date Entry Date Standard Description CPT-OV Office Visit 15:49:26 MANAGER CUSTOMS CPT-J1885 Toradol 60 mg (Ketorolac) 15:37:32 CDT CPT-65932 Abx/Therapy Injection 15:37:32 CDT CPT-J1885 Toradol 60 mg (Ketorolac) 14:45:01 CDT CPT-OV Office Visit 15:19:52 CDT CPT-OV Office Visit 10:41:01 CDT CPT-21413 Core biop breast wo imaging 16:50:06 CDT CPT-OV Office Visit 16:50:05 CDT CPT-58750 UHCG (floor use only) 13:39:36 CDT CPT-40669 Nexplanon Placement 10:11:48 CDT CPT-J7307 Nexplanon (Implant) 10:11:48 CDT CPT-OV Office Visit 09:54:18 CDT CPT-12430 EKG Trac and Interp 16:50:19 CDT CPT-73384 Venipuncture Draw Fee 15:06:08 CDT CPT-J2930 Solu Medrol 125 mg (Methyl Prednisolone Sodium Succinate) 12:44:46 CDT CPT-J1055 Depo Provera 150 mg (Medroxyprogesterone) 12:44:46 CDT CPT-36553 Abx/Therapy Injection 12:44:46 CDT CPT-J1055 Depo Provera 150 mg (Medroxyprogesterone) 14:28:41 CDT CPT-J2930 Solu Medrol 125 mg (Methyl Prednisolone Sodium Succinate) 14:22:41 CDT CPT-37515 Administration single or combination vaccine inc oral 10 :08:06 CDT CPT-95959 Tdap 10:08:06 CDT CPT-G0402 Wlcm To Medicare Ex 22:17:30 CDT CPT-94232 Venipuncture Draw Fee 10:33:07 MANAGER CUSTOMS CPT-70758 Venipuncture Draw Fee 10:17:37 MANAGER CUSTOMS CPT-G0403 EKG Wlc To Medicare 22:17:30 CDT
--- OUTSIDE RECORDS SUMMARY | 2018-07-17 21:56 | XMS REPORT ---
Author Author [facility] Medical Staff Organization [facility] Address [address] [place], [place] [address] Phone [phone] Care Team Providers Care Branch Associate Name Role Phone FARHAD SETHI MD PP [phone] Summary purpose TRANSITION OF CARE AUTO GENERATION Chief Complaint and Reason for Visit Admit Diagnosis 1 PHYSICAL THERAPY NEC Problem list No authorized problems tracked for [...] are available for this visit. Vital signs No authorized vital signs are available for this visit. Social history No Social History or smoking status observations were recorded for this visit. ( Unknown if ever smoked.) Treatment Plan No treatment plan text is available for this visit. Hospital discharge instructions No discharge instruction text is available for this visit.
--- OUTSIDE RECORDS SUMMARY | 2018-07-17 21:57 | XMS REPORT | Clinical Summary ---
Author Author Admin, ARIAN Organization [facility] Address Unknown Phone Unavailable Allergies, [...] cap by mouth twice daily DOXYCYCLINE HYCLATE 41774947971 No Longer Active Najma Vaughn SAMI Active MULTIVITAMINS CAPS 1 tablet daily MULTIPLE VITAMIN 90314054093 Active Juan Smith MD Active CYCLOBENZAPRINE HCL 10 MG TABS 1/2 - 1 tab by mouth three times daily if needed for spasms/pain CYCLOBENZAPRINE HCL 62786774495 Active Ian Valdez MD Active GLUCOPHAGE 500 MG TABS 1 tab BID with morning and night meals METFORMIN HCL 23663896266 Active Eva Ferrara MD PhD Active PROGESTERONE MICRONIZED 100 MG CAPS 2 caps daily day 16 thru 25 of cycle 2013 PROGESTERONE MICRONIZED 89615830305 Active Eva Ferrara MD PhD Active TERBINAFINE HCL 1 % CREA Apply bid to rash TERBINAFINE HCL 12961252139 No Longer Active Eva Ferrara MD PhD Active TOPAMAX 25 MG TABS 1 tab po qhs x 1 week, then take 2 tabs po qhs TOPIRAMATE 36663334196 No Longer Active Thom Gilbert MD Active ULTRAM 50 MG TAB take 1 tab po q6hrs prn pain TRAMADOL HCL 22347736653 Active Juan Smith MD Active LAMISIL AT 1 % CREA apply bid to rash TERBINAFINE HCL 12441026129 No Longer Active Thom Gilbert MD Active TERBINAFINE HCL 250 MG TABS 1 qDay TERBINAFINE HCL 80177646559 No Longer Active Ian Valdez MD Active XANAX 0.25 MG TABS take 1 tab po bid prn anxiety. ALPRAZOLAM 46632071114 No Longer Active Ian Valdez MD Active FISH OIL 1000 MG CAPS 2 caps PO once daily at bedtime OMEGA-3 FATTY ACIDS 73960304947 No Longer Active Ian Valdez MD Active KLOR-CON M20 20 MEQ CR-TABS take 1 tab po qday with lasix POTASSIUM CHLORIDE GALILEO CR 23080559437 Active Ian Valdez MD Active LASIX 20 MG TAB 1 tablet by mouth daily prn swelling FUROSEMIDE 63791718283 Active Ian Valdez MD Active FLONASE 50 MCG/ACT SUSP 2 puffs in each nostril once daily at bedtime FLUTICASONE PROPIONATE 55671162103 Active Ian Valdez MD Active CVS MELATONIN 3 MG TABS 2 tabs PO at bedtime MELATONIN 64403959091 Active Ian Valdez MD Active PULMICORT FLEXHALER 180 MCG/ACT AEPB 2 INH BID BUDESONIDE 49789418636 No Longer Active Ian Valdez MD Active METFORMIN HCL 500 MG TB24 1 TAB PO Q HS METFORMIN HCL 31605953784 No Longer Active Ian Valdez MD Active CYCLOBENZAPRINE HCL 10 MG TABS 1 PO q 8 hrs PRN muscle spasm 2012 CYCLOBENZAPRINE HCL 65273753151 No Longer Active Ian Valdez MD Active AZITHROMYCIN 500 MG TABS 1 PO q day x 6 days AZITHROMYCIN 46361503931 No Longer Active Ian Valdez MD Active CIPRO 500 MG TAB 1 tablet by mouth twice daily CIPROFLOXACIN HCL 22822199214 No Longer Active Ian Valdez MD Active PREDNISONE 20 MG TABS 3 qd x 2d, 2 qd x 2d, 1 qd x 2d, 1/2 qd x 2d PREDNISONE 82287730215 No Longer Active Law FIGUEROA Active CELEXA 40 MG TABS 2 PO DAILY CITALOPRAM HYDROBROMIDE 81554132929 Active Ian Vladez MD Active OMEPRAZOLE 20 MG CPDR 1 tablet by mouth daily OMEPRAZOLE 87927747296 No Longer Active [place] FIGUEROA Active KLONOPIN 0.5 MG TABS 1 TABLET PO PRN CLONAZEPAM 57952497576 No Longer Active [place] FIGUEROA Active MOBIC 7.5 MG TABS 1 tablet by mouthonce a day MELOXICAM 82293704002 No Longer Active [place] FIGUEROA Active ZITHROMAX 1 GM PACK DIRECTED AZITHROMYCIN 55493289224 No Longer Active Ian Valdez MD Active ALBUTEROL SULFATE 0.083 % NEBU SOLN one vial per nebulizer every 4-6 hours as needed ALBUTEROL SULFATE 80723740833 Active Ian Valdez MD Active CHANTIX STARTING MONTH REBEKAH 0.5 MG X 11 & 1 MG X 42 TABS 0.5mg daily for 3 days , then 0.5mg BID for 4 days, then 1mg BID VARENICLINE TARTRATE 73084398592 No Longer Active Ian Valdez MD Active ZITHROMAX 1 GM PACK DIRECTED AZITHROMYCIN 11181521728 No Longer Active Ian Valdez MD Active AURALGAN 1.4-5.5 % SOLN BENZOCAINE-ANTIPYRINE 85739542831 No Longer Active Ian Valdez MD Active PREDNISONE 20 MG TAB 3 tabs daily for 3 days, 2 tab daily for 3 days, 1 tab daily for 2 days, then 1/2 tab dialy for 2 days PREDNISONE 65035127324 No Longer Active Ian Valdez MD Active SIMVASTATIN 40 MG TABS 1 TABLET PO Q HS SIMVASTATIN 36393693239 Active Ian Valdez MD Active SIMVASTATIN 80 MG TABS Take one by mouth daily SIMVASTATIN 05128774712 No Longer Active Ian Valdez MD Active PREDNISONE 20 MG TAB 2 tabs daily for 3 days, 1 tab daily for 3 days, 1/2 tab daily for 2 days PREDNISONE 24314217079 No Longer Active Ian Valdez MD Active ZITHROMAX 250 MG TAB 2 po today, then 1 po q days 2-5 AZITHROMYCIN 38159855371 No Longer Active Ian Valdez MD Active TRAZODONE HCL 100 MG TABS 2 TABS PO Q HS TRAZODONE HCL 91641739123 Active Ian Valdez MD Active ZITHROMAX 250 MG TAB 2 po today, then 1 po q days 2-5 AZITHROMYCIN 23850275629 No Longer Active Ian Valdez MD Active SIMVASTATIN 80 MG TABS Take one by mouth daily SIMVASTATIN 80 MG TABS 549076 SIMVASTATIN Inactive AURALGAN 1.4-5.5 % SOLN AURALGAN 1.4-5.5 % SOLN BENZOCAINE-ANTIPYRINE Inactive ZITHROMAX 1 GM PACK DIRECTED ZITHROMAX 1 GM PACK 146322 AZITHROMYCIN Inactive CHANTIX STARTING MONTH REBEKAH 0.5 MG X 11 & 1 MG X 42 TABS 0.5mg daily for 3 days , then 0.5mg BID for 4 days, then 1mg BID CHANTIX STARTING MONTH REBEKAH 0.5 MG X 11 & 1 MG X 42 TABS VARENICLINE TARTRATE Inactive ZITHROMAX 1 GM PACK DIRECTED ZITHROMAX 1 GM PACK 388381 AZITHROMYCIN Inactive MOBIC 7.5 MG TABS 1 tablet by mouthonce a day MOBIC 7.5 MG TABS 018819 MELOXICAM Inactive KLONOPIN 0.5 MG TABS 1 TABLET PO PRN KLONOPIN 0.5 MG TABS 915520 CLONAZEPAM Inactive CIPRO 500 MG TAB 1 tablet by mouth twice daily CIPRO 500 MG TAB 256095 CIPROFLOXACIN HCL Inactive AZITHROMYCIN 500 MG TABS 1 PO q day x 6 days AZITHROMYCIN 500 MG TABS 4705858 AZITHROMYCIN Inactive CYCLOBENZAPRINE HCL 10 MG TABS 1 PO q 8 hrs PRN muscle spasm 2012 CYCLOBENZAPRINE HCL 10 MG TABS 449601 CYCLOBENZAPRINE HCL Inactive METFORMIN HCL 500 MG [...] bid prn anxiety. XANAX 0.25 MG TABS 695208 ALPRAZOLAM Inactive LAMISIL AT 1 % CREA apply bid to rash LAMISIL AT 1 % CREA 096887 TERBINAFINE HCL Inactive TOPAMAX 25 MG TABS 1 tab po qhs x 1 week, then take 2 tabs po qhs TOPAMAX 25 MG TABS 110055 TOPIRAMATE Inactive TERBINAFINE HCL 1 % CREA Apply bid to rash TERBINAFINE HCL 1 % CREA 624483 TERBINAFINE HCL Inactive ZITHROMAX 250 MG TAB 2 po today, then 1 po q days 2-5 ZITHROMAX 250 MG TAB 2085065 AZITHROMYCIN Inactive ZITHROMAX 250 MG TAB 2 po today, then 1 po q days 2-5 ZITHROMAX 250 MG TAB 9492141 AZITHROMYCIN Inactive PREDNISONE 20 MG TAB 2 tabs daily for 3 days, 1 tab daily for 3 days, 1/2 tab daily for 2 days PREDNISONE 20 MG TAB 876146 PREDNISONE Inactive PREDNISONE 20 MG TAB 3 tabs daily for 3 days, 2 tab daily for 3 days, 1 tab daily for 2 days, then 1/2 tab dialy for 2 days PREDNISONE 20 MG TAB 012421 PREDNISONE Inactive OMEPRAZOLE 20 MG CPDR 1 tablet by mouth daily OMEPRAZOLE 20 MG CPDR 029630 OMEPRAZOLE Inactive PREDNISONE 20 MG TABS 3 qd x 2d, 2 qd x 2d, 1 qd x 2d, 1/2 qd x 2d PREDNISONE 20 MG TABS 788610 PREDNISONE Inactive TERBINAFINE HCL 250 MG TABS 1 qDay TERBINAFINE HCL 250 MG TABS 018300 TERBINAFINE HCL Inactive DOXYCYCLINE HYCLATE 100 MG CAP 1 cap by mouth twice daily DOXYCYCLINE HYCLATE 100 MG CAP 128535 DOXYCYCLINE HYCLATE Inactive Advance Directives Directive Description Start Date NO HEROIC MEASURES Immunizations Vaccine Administration Date Value Standard Description Boostrix (Tetanus toxoid, reduced diphtheria toxoid and acellular pertussis vaccine, adsorbed), booster Boostrix [[id number]] tetanus toxoid, reduced diphtheria toxoid, and acellular [...] 5.3 % 4.3-6.0 sodium, serum 139 mmol/L 081-417 4362/02/24 potassium, serum 4.4 mmol/L 3.5-5.2 chloride, serum [...] 1.44 m[iU]/mL 0.36-3.74 cholesterol, serum 144 mg/dL 058-651 9335/11/19 triglyceride, serum, fasting 172 mg/dL 30-200 HDL cholesterol, serum 30 mg/dL 32-96 LDL cholesterol, serum 80 mg/dL 0-130 sodium, serum 137 mmol/L 239-389 5023/11/19 potassium, serum 4.1 mmol/L 3.5-5.2 chloride, serum [...] Panel - Chemistry cholesterol, serum 118 mg/dL 682-803 8377/02/24 triglyceride, serum, fasting 141 mg/dL 30-200 HDL [...] mg/dL Encounters Code Encounter Date Provider Facility CPT-30080 Level 3 Est. Patient 15:50:27 AUTOMATION DRIVER Najma Vaughn APRN [facility] CPT-66971 Level 4 Est. Patient 21:20:00 AUTOMATION DRIVER Ian Valdez MD [facility] CPT-14017 Level 3 Est. Patient 15:32:41 AUTOMATION DRIVER Juan Smith MD [facility] CPT-56361 Level 3 Est. Patient 14:45:01 CDT Eva Ferrara MD PhD [facility] CPT-66963 Level 3 Est. Patient 14:54:10 CDT Ian Valdez MD [facility] CPT-13294 Level 4 Est. Patient 20:36:52 CDT Ian Valdez MD [facility] CPT-48035 Level 4 Est. Patient 11:14:30 AUTOMATION DRIVER Ian Valdez MD [facility] CPT-49339 Level 3 Est. Patient 19:08:34 AUTOMATION DRIVER Ian Valdez MD [facility] CPT-75568 Level 3 Est. Patient 13:17:39 AUTOMATION DRIVER Ian Valdez MD [facility] CPT-01594 Level 4 Est. Patient 18:56:10 CDT Ian Valdez MD [facility] CPT-44051 Level 4 Est. Patient 16:55:56 CDT Ian Valdez MD [facility] CPT-84503 Level 3 Est. Patient 11:27:07 CDT Ian Valdez MD [facility] CPT-75271 Level 3 Est. Patient 15:17:44 CDT Law Rosas [facility] CPT-39540 Level 4 Est. Patient 15:13:53 CDT Wellington Muniz [facility] CPT-31197 Level 3 Est. Patient 14:25:12 AUTOMATION DRIVER Ian Valdez MD [facility] CPT-95687 Level 3 Est. Patient 10:24:46 CDT Ian Valdez MD [facility] CPT-39585 Level 3 Est. Patient 15:34:19 CDT Ian Valdez MD [facility] CPT-83526 Level 3 Est. Patient 14:22:41 CDT Ian Valdez MD [facility] CPT-09876 Level 3 Est. Patient 15:07:22 AUTOMATION DRIVER Ian Valdez MD [facility] CPT-67587 Level 3 New Patient 09:06:43 AUTOMATION DRIVER Ian Valdez MD [facility] CPT-08186 Level 3 Est. Patient 15:09:00 AUTOMATION DRIVER Ian Valdez MD [facility] Procedures Code Procedure Name Date Entry Date Standard Description CPT-OV Office Visit 15:49:26 AUTOMATION DRIVER CPT-J1885 Toradol 60 mg (Ketorolac) 15:37:32 CDT CPT-70652 Abx/Therapy Injection 15:37:32 CDT CPT-J1885 Toradol 60 mg (Ketorolac) 14:45:01 CDT CPT-OV Office Visit 15:19:52 CDT CPT-OV Office Visit 10:41:01 CDT CPT-28678 Core biop breast wo imaging 16:50:06 CDT CPT-OV Office Visit 16:50:05 CDT CPT-38759 [facility]CG (floor use only) 13:39:36 CDT CPT-61687 Nexplanon Placement 10:11:48 CDT CPT-J7307 Nexplanon (Implant) 10:11:48 CDT CPT-OV Office Visit 09:54:18 CDT CPT-55175 EKG Trac and Interp 16:50:19 CDT CPT-97540 Venipuncture Draw Fee 15:06:08 CDT CPT-J2930 Solu Medrol 125 mg (Methyl Prednisolone Sodium Succinate) 12:44:46 CDT CPT-J1055 Depo Provera 150 mg (Medroxyprogesterone) 12:44:46 CDT CPT-33086 Abx/Therapy Injection 12:44:46 CDT CPT-J1055 Depo Provera 150 mg (Medroxyprogesterone) 14:28:41 CDT CPT-J2930 Solu Medrol 125 mg (Methyl Prednisolone Sodium Succinate) 14:22:41 CDT CPT-83816 Administration single or combination vaccine inc oral 10 :08:06 CDT CPT-39827 Tdap 10:08:06 CDT CPT-G0402 Wlcm To Medicare Ex 22:17:30 CDT CPT-74637 Venipuncture Draw Fee 10:33:07 AUTOMATION DRIVER CPT-87212 Venipuncture Draw Fee 10:17:37 AUTOMATION DRIVER CPT-G0403 EKG Wlc To Medicare 22:17:30 CDT
--- OUTSIDE RECORDS SUMMARY | 2018-07-17 21:58 | XMS REPORT | Clinical Summary ---
Author Author Admin, ARIAN Organization [facility] Address Unknown Phone Allergies, Adverse [...] diabetes mellitus DIABETES-TYPE 2 250.00 Active Ian Vadlez MD Diabetes mellitus without mention of complication, [...] myositis, unspecified Polycystic ovarian disease 256.4 Active aIn Valdez MD Polycystic ovaries Unspecified procreative management [...] CREA apply bid to rash TERBINAFINE HCL 98291044024 Active Ian Valdez MD Active TERBINAFINE HCL 250 MG TABS 1 qDay TERBINAFINE HCL 33189783461 No Longer Active Ian Valdez MD Active TOPAMAX 25 MG TABS 1 tab po qhs x 1 week, then take 2 tabs po qhs TOPIRAMATE 54704539469 Active Ian Valdez MD Active XANAX 0.25 MG TABS take 1 tab po bid prn anxiety. ALPRAZOLAM 50077031367 No Longer Active Ian Valdez MD Active FISH OIL 1000 MG CAPS 2 caps PO once daily at bedtime OMEGA-3 FATTY ACIDS 61339454671 No Longer Active Ian Valdez MD Active KLOR-CON M20 20 MEQ CR-TABS take 1 tab po qday with lasix POTASSIUM CHLORIDE GALILEO CR 49314154478 Active Ian Valdez MD Active LASIX 20 MG TAB 1 tablet by mouth daily prn swelling FUROSEMIDE 15774127358 Active Ian Valdez MD Active FLONASE 50 MCG/ACT SUSP 2 puffs in each nostril once daily at bedtime FLUTICASONE PROPIONATE 91665649230 Active Ian Valdez MD Active CVS MELATONIN 3 MG TABS 2 tabs PO at bedtime MELATONIN 33091610233 Active Ian Valdez MD Active PULMICORT FLEXHALER 180 MCG/ACT AEPB 2 INH BID BUDESONIDE 29762119238 No Longer Active Ian Valdez MD Active METFORMIN HCL 500 MG TB24 1 TAB PO Q HS METFORMIN HCL 55062568374 No Longer Active Ian Valdez MD Active CYCLOBENZAPRINE HCL 10 MG TABS 1 PO q 8 hrs PRN muscle spasm 2012 CYCLOBENZAPRINE HCL 70503722504 No Longer Active Ian Valdez MD Active AZITHROMYCIN 500 MG TABS 1 PO q day x 6 days AZITHROMYCIN 83054445266 No Longer Active Ian Valdez MD Active CIPRO 500 MG TAB 1 tablet by mouth twice daily CIPROFLOXACIN HCL 55826045796 No Longer Active Ian Valdez MD Active PREDNISONE 20 MG TABS 3 qd x 2d, 2 qd x 2d, 1 qd x 2d, 1/2 qd x 2d PREDNISONE 58039015848 No Longer Active Law FIGUEROA Active CELEXA 40 MG TABS 2 PO DAILY CITALOPRAM HYDROBROMIDE 91075310988 Active Ian Valdez MD Active OMEPRAZOLE 20 MG CPDR 1 tablet by mouth daily OMEPRAZOLE 43738316452 No Longer Active [place] FIGUEROA Active KLONOPIN 0.5 MG TABS 1 TABLET PO PRN CLONAZEPAM 32667555039 No Longer Active [place] FIGUEROA Active MOBIC 7.5 MG TABS 1 tablet by mouthonce a day MELOXICAM 75676815922 No Longer Active [place] FIGUEROA Active ZITHROMAX 1 GM PACK DIRECTED AZITHROMYCIN 67595122216 No Longer Active Ian Valdez MD Active ALBUTEROL SULFATE 0.083 % NEBU SOLN one vial per nebulizer every 4-6 hours as needed ALBUTEROL SULFATE 76538097787 Active Ian Valdez MD Active CHANTIX STARTING MONTH REBEKAH 0.5 MG X 11 & 1 MG X 42 TABS 0.5mg daily for 3 days , then 0.5mg BID for 4 days, then 1mg BID VARENICLINE TARTRATE 25899037448 No Longer Active Ian Valdez MD Active ZITHROMAX 1 GM PACK DIRECTED AZITHROMYCIN 59812574888 No Longer Active Ian Valdez MD Active AURALGAN 1.4-5.5 % SOLN BENZOCAINE-ANTIPYRINE 17862166929 No Longer Active Ian Valdez MD Active PREDNISONE 20 MG TAB 3 tabs daily for 3 days, 2 tab daily for 3 days, 1 tab daily for 2 days, then 1/2 tab dialy for 2 days PREDNISONE 65287635679 No Longer Active Ian Valdez MD Active SIMVASTATIN 40 MG TABS 1 TABLET PO Q HS SIMVASTATIN 50212523682 Active Ian Valdez MD Active SIMVASTATIN 80 MG TABS Take one by mouth daily SIMVASTATIN 08488226555 No Longer Active Ian Valdez MD Active PREDNISONE 20 MG TAB 2 tabs daily for 3 days, 1 tab daily for 3 days, 1/2 tab daily for 2 days PREDNISONE 47803611712 No Longer Active Ian Valdez MD Active ZITHROMAX 250 MG TAB 2 po today, then 1 po q days 2-5 AZITHROMYCIN 90974311666 No Longer Active Ian Valdez MD Active TRAZODONE HCL 100 MG TABS 2 TABS PO Q HS TRAZODONE HCL 64522036626 Active Ian Valdez MD Active ZITHROMAX 250 MG TAB 2 po today, then 1 po q days 2-5 AZITHROMYCIN 77135083512 No Longer Active Ian Valdez MD Active SIMVASTATIN 80 MG TABS Take one by mouth daily SIMVASTATIN 80 MG TABS 219499 SIMVASTATIN Inactive AURALGAN 1.4-5.5 % SOLN AURALGAN 1.4-5.5 % SOLN 6793076 BENZOCAINE-ANTIPYRINE Inactive ZITHROMAX 1 GM PACK DIRECTED ZITHROMAX 1 GM PACK 882904 AZITHROMYCIN Inactive CHANTIX STARTING MONTH REBEKAH 0.5 MG X 11 & 1 MG X 42 TABS 0.5mg daily for 3 days , then 0.5mg BID for 4 days, then 1mg BID CHANTIX STARTING MONTH REBEKAH 0.5 MG X 11 & 1 MG X 42 TABS VARENICLINE TARTRATE Inactive ZITHROMAX 1 GM PACK DIRECTED ZITHROMAX 1 GM PACK 594964 AZITHROMYCIN Inactive MOBIC 7.5 MG TABS 1 tablet by mouthonce a day MOBIC 7.5 MG TABS 490639 MELOXICAM Inactive KLONOPIN 0.5 MG TABS 1 TABLET PO PRN KLONOPIN 0.5 MG TABS 276563 CLONAZEPAM Inactive CIPRO 500 MG TAB 1 tablet by mouth twice daily CIPRO 500 MG TAB 401080 CIPROFLOXACIN HCL Inactive AZITHROMYCIN 500 MG TABS 1 PO q day x 6 days AZITHROMYCIN 500 MG TABS 9777327 AZITHROMYCIN Inactive CYCLOBENZAPRINE HCL 10 MG TABS 1 PO q 8 hrs PRN muscle spasm 2012 CYCLOBENZAPRINE HCL 10 MG TABS 260150 CYCLOBENZAPRINE HCL Inactive METFORMIN HCL 500 MG [...] bid prn anxiety. XANAX 0.25 MG TABS 096972 ALPRAZOLAM Inactive ZITHROMAX 250 MG TAB 2 po today, then 1 po q days 2-5 ZITHROMAX 250 MG TAB 2100753 AZITHROMYCIN Inactive ZITHROMAX 250 MG TAB 2 po today, then 1 po q days 2-5 ZITHROMAX 250 MG TAB 6927158 AZITHROMYCIN Inactive PREDNISONE 20 MG TAB 2 tabs daily for 3 days, 1 tab daily for 3 days, 1/2 tab daily for 2 days PREDNISONE 20 MG TAB 811567 PREDNISONE Inactive PREDNISONE 20 MG TAB 3 tabs daily for 3 days, 2 tab daily for 3 days, 1 tab daily for 2 days, then 1/2 tab dialy for 2 days PREDNISONE 20 MG TAB 049260 PREDNISONE Inactive OMEPRAZOLE 20 MG CPDR 1 tablet by mouth daily OMEPRAZOLE 20 MG CPDR 185734 OMEPRAZOLE Inactive PREDNISONE 20 MG TABS 3 qd x 2d, 2 qd x 2d, 1 qd x 2d, 1/2 qd x 2d PREDNISONE 20 MG TABS 628557 PREDNISONE Inactive TERBINAFINE HCL 250 MG TABS 1 qDay TERBINAFINE HCL 250 MG TABS 536201 TERBINAFINE HCL Inactive Advance Directives Directive Description Start Date NO HEROIC MEASURES Immunizations Vaccine Administration Date Value Standard Description Combined Altwhrqqpk-Avlwkob-ijfgqkdnm Pertussis (dTpa) Vaccine - Booster 07/05 Boostrix [[id number]] tetanus toxoid, reduced diphtheria toxoid, and acellular [...] 5.3 % 4.3-6.0 sodium, serum 139 mmol/L 895-196 1743/02/24 potassium, serum 4.4 mmol/L 3.5-5.2 chloride, serum [...] mean corpuscular volume, RBC 91 fL 80-97 leukocyte count, blood 8.4 10^3/MM^3 10*3/mm3 4.6-10.2 mean corpuscular hemoglobin concentration, RBC 33.8 G/DL % 31.8- 35.4 red blood cell distribution width 13.6 % 11.6-14.8 platelet count 364 10^3/MM^3 10*3/mm3 940-654 4854/02/24 mean corpuscular hemoglobin, RBC 30.7 pg 27.0-31.2 Lab Report: Lipid Panel - Chemistry cholesterol, serum 118 mg/dL 302-623 4901/02/24 triglyceride, serum, fasting 141 mg/dL 30-200 HDL cholesterol, serum 20 mg/dL 32-96 LDL cholesterol, serum 70 mg/dL 0-130 Lab Report: Lipid Panel, Comp. Metabolic Panel, MICROALBUMIN, HGBA1C - Chemistry albumin/creatinine ratio, urine < 30 mg/g mg/g{creat} 0-29 hemoglobin A1C, blood, as % of total hemoglobin 5.3 % 4.3-6.0 cholesterol, serum 172 mg/dL 226-844 0964/08/16 triglyceride, serum, fasting 267 mg/dL 30-200 HDL cholesterol, serum 22 mg/dL 32-96 LDL cholesterol, serum 97 mg/dL 0-130 sodium, serum 141 mmol/L 892-706 7126/08/16 potassium, serum 4.2 mmol/L 3.5-5.2 chloride, serum [...] Negative Encounters Code Encounter Date Provider Facility CPT-81881 Level 3 Est. Patient 14:54:10 CDT Ian Valdez MD [facility] CPT-90149 Level 4 Est. Patient 20:36:52 CDT Ian Valdez MD [facility] CPT-63983 Level 4 Est. Patient 11:14:30 ICT PROJECT MANAGER Ian Valdez MD [facility] CPT-01746 Level 3 Est. Patient 19:08:34 ICT PROJECT MANAGER Ian Valdez MD [facility] CPT-42007 Level 3 Est. Patient 13:17:39 ICT PROJECT MANAGER Ian Valdez MD [facility] CPT-65449 Level 4 Est. Patient 18:56:10 CDT Ian Valdez MD [facility] CPT-12377 Level 4 Est. Patient 16:55:56 CDT Ina Valdez MD [facility] CPT-60696 Level 3 Est. Patient 11:27:07 CDT Ian Valdez MD [facility] CPT-88767 Level 3 Est. Patient 15:17:44 CDT Law Rosas [facility] CPT-03910 Level 4 Est. Patient 15:13:53 CDT Wellington Muniz PA [facility] CPT-03227 Level 3 Est. Patient 14:25:12 ICT PROJECT MANAGER Ian Valdez MD [facility] CPT-91639 Level 3 Est. Patient 10:24:46 CDT Ian Valdez MD [facility] CPT-51038 Level 3 Est. Patient 15:34:19 CDT Ian Valdez MD [facility] CPT-70238 Level 3 Est. Patient 14:22:41 CDT Ian Valdez MD [facility] CPT-88549 Level 3 Est. Patient 15:07:22 ICT PROJECT MANAGER Ian Valdez MD [facility] CPT-93070 Level 3 New Patient 09:06:43 ICT PROJECT MANAGER Ian Valdez MD [facility] CPT-02057 Level 3 Est. Patient 15:09:00 ICT PROJECT MANAGER Ian Valdez MD [facility] Procedures Code Procedure Name Date Entry Date Standard Description CPT-41956 UHCG (floor use only) 13:39:36 CDT CPT-70433 Nexplanon Placement 10:11:48 CDT CPT-J7307 Nexplanon (Implant) 10:11:48 CDT CPT-OV Office Visit 09:54:18 CDT CPT-98840 EKG Trac and Interp 16:50:19 CDT CPT-89363 Venipuncture Draw Fee 15:06:08 CDT CPT-J2930 Solu Medrol 125 mg (Methyl Prednisolone Sodium Succinate) 12:44:46 CDT CPT-J1055 Depo Provera 150 mg (Medroxyprogesterone) 12:44:46 CDT CPT-68717 Abx/Therapy Injection 12:44:46 CDT CPT-J1055 Depo Provera 150 mg (Medroxyprogesterone) 14:28:41 CDT CPT-J2930 Solu Medrol 125 mg (Methyl Prednisolone Sodium Succinate) 14:22:41 CDT CPT-86246 Administration single or combination vaccine inc oral 10 :08:06 CDT CPT-68074 Tdap 10:08:06 CDT CPT-G0402 Wlcm To Medicare Ex 22:17:30 CDT CPT-91054 Venipuncture Draw Fee 10:33:07 ICT PROJECT MANAGER CPT-83533 Venipuncture Draw Fee 10:17:37 ICT PROJECT MANAGER CPT-G0403 EKG [facility] To Medicare 22:17:30 CDT
--- OUTSIDE RECORDS SUMMARY | 2018-07-17 21:59 | XMS REPORT | Clinical Summary ---
Author Author Admin, ARIAN Organization [facility] Address Unknown Phone Unavailable Allergies, Adverse Reactions, [...] cap by mouth twice daily DOXYCYCLINE HYCLATE 40439277624 No Longer Active Najma Vaughn SAMI Active MULTIVITAMINS CAPS 1 tablet daily MULTIPLE VITAMIN 06833227251 Active Juan Smith MD Active CYCLOBENZAPRINE HCL 10 MG TABS 1/2 - 1 tab by mouth three times daily if needed for spasms/pain CYCLOBENZAPRINE HCL 26252631976 Active Ian Valdez MD Active GLUCOPHAGE 500 MG TABS 1 tab BID with morning and night meals METFORMIN HCL 78963704340 Active Eva Ferrara MD PhD Active PROGESTERONE MICRONIZED 100 MG CAPS 2 caps daily day 16 thru 25 of cycle 2013 PROGESTERONE MICRONIZED 94632880568 Active Eva Ferrara MD PhD Active TERBINAFINE HCL 1 % CREA Apply bid to rash TERBINAFINE HCL 43670890819 No Longer Active Eva Ferrara MD PhD Active TOPAMAX 25 MG TABS 1 tab po qhs x 1 week, then take 2 tabs po qhs TOPIRAMATE 05663193473 No Longer Active Thom Gilbert MD Active ULTRAM 50 MG TAB take 1 tab po q6hrs prn pain TRAMADOL HCL 70213279778 Active Juan Smith MD Active LAMISIL AT 1 % CREA apply bid to rash TERBINAFINE HCL 65720560917 No Longer Active Thom iGlbert MD Active TERBINAFINE HCL 250 MG TABS 1 qDay TERBINAFINE HCL 03553244594 No Longer Active Ian Valdez MD Active XANAX 0.25 MG TABS take 1 tab po bid prn anxiety. ALPRAZOLAM 70732235963 No Longer Active Ian Valdez MD Active FISH OIL 1000 MG CAPS 2 caps PO once daily at bedtime OMEGA-3 FATTY ACIDS 39446660152 No Longer Active Ian Valdez MD Active KLOR-CON M20 20 MEQ CR-TABS take 1 tab po qday with lasix POTASSIUM CHLORIDE GALILEO CR 28098025413 Active Ian Valdez MD Active LASIX 20 MG TAB 1 tablet by mouth daily prn swelling FUROSEMIDE 65685293957 Active Ian Valdez MD Active FLONASE 50 MCG/ACT SUSP 2 puffs in each nostril once daily at bedtime FLUTICASONE PROPIONATE 15787429611 Active Ian Valdez MD Active CVS MELATONIN 3 MG TABS 2 tabs PO at bedtime MELATONIN 84746822569 Active Ian Valdez MD Active PULMICORT FLEXHALER 180 MCG/ACT AEPB 2 INH BID BUDESONIDE 12001487713 No Longer Active Ian Valdez MD Active METFORMIN HCL 500 MG TB24 1 TAB PO Q HS METFORMIN HCL 71455938134 No Longer Active Ian Valdez MD Active CYCLOBENZAPRINE HCL 10 MG TABS 1 PO q 8 hrs PRN muscle spasm 2012 CYCLOBENZAPRINE HCL 14732948257 No Longer Active Ian Valdez MD Active AZITHROMYCIN 500 MG TABS 1 PO q day x 6 days AZITHROMYCIN 96324977819 No Longer Active Ian Valdez MD Active CIPRO 500 MG TAB 1 tablet by mouth twice daily CIPROFLOXACIN HCL 47689985402 No Longer Active Ian Valdez MD Active PREDNISONE 20 MG TABS 3 qd x 2d, 2 qd x 2d, 1 qd x 2d, 1/2 qd x 2d PREDNISONE 01833181033 No Longer Active Law FIGUEROA Active CELEXA 40 MG TABS 2 PO DAILY CITALOPRAM HYDROBROMIDE 14500052589 Active Ian Valdez MD Active OMEPRAZOLE 20 MG CPDR 1 tablet by mouth daily OMEPRAZOLE 20126675372 No Longer Active [place] FIGUEROA Active KLONOPIN 0.5 MG TABS 1 TABLET PO PRN CLONAZEPAM 87656806208 No Longer Active [place] FIGUEROA Active MOBIC 7.5 MG TABS 1 tablet by mouthonce a day MELOXICAM 62584751856 No Longer Active [place] FIGUEROA Active ZITHROMAX 1 GM PACK DIRECTED AZITHROMYCIN 01192237880 No Longer Active Ian Valdez MD Active ALBUTEROL SULFATE 0.083 % NEBU SOLN one vial per nebulizer every 4-6 hours as needed ALBUTEROL SULFATE 60805001573 Active Ian Valdez MD Active CHANTIX STARTING MONTH REBEKAH 0.5 MG X 11 & 1 MG X 42 TABS 0.5mg daily for 3 days , then 0.5mg BID for 4 days, then 1mg BID VARENICLINE TARTRATE 24905078325 No Longer Active Ian Valdez MD Active ZITHROMAX 1 GM PACK DIRECTED AZITHROMYCIN 80752493102 No Longer Active Ian Valdez MD Active AURALGAN 1.4-5.5 % SOLN BENZOCAINE-ANTIPYRINE 48402681845 No Longer Active Ian Valdez MD Active PREDNISONE 20 MG TAB 3 tabs daily for 3 days, 2 tab daily for 3 days, 1 tab daily for 2 days, then 1/2 tab dialy for 2 days PREDNISONE 66289404579 No Longer Active Ian Valdez MD Active SIMVASTATIN 40 MG TABS 1 TABLET PO Q HS SIMVASTATIN 78783300410 Active Ian Valdez MD Active SIMVASTATIN 80 MG TABS Take one by mouth daily SIMVASTATIN 21302948238 No Longer Active Ian Valdez MD Active PREDNISONE 20 MG TAB 2 tabs daily for 3 days, 1 tab daily for 3 days, 1/2 tab daily for 2 days PREDNISONE 41048554509 No Longer Active Ian Valdez MD Active ZITHROMAX 250 MG TAB 2 po today, then 1 po q days 2-5 AZITHROMYCIN 82674586022 No Longer Active Ian Valdez MD Active TRAZODONE HCL 100 MG TABS 2 TABS PO Q HS TRAZODONE HCL 10931324444 Active Ian Valdez MD Active ZITHROMAX 250 MG TAB 2 po today, then 1 po q days 2-5 AZITHROMYCIN 04916288926 No Longer Active Ian Valdez MD Active SIMVASTATIN 80 MG TABS Take one by mouth daily SIMVASTATIN 80 MG TABS 564026 SIMVASTATIN Inactive AURALGAN 1.4-5.5 % SOLN AURALGAN 1.4-5.5 % SOLN BENZOCAINE-ANTIPYRINE Inactive ZITHROMAX 1 GM PACK DIRECTED ZITHROMAX 1 GM PACK 235965 AZITHROMYCIN Inactive CHANTIX STARTING MONTH REBEKAH 0.5 MG X 11 & 1 MG X 42 TABS 0.5mg daily for 3 days , then 0.5mg BID for 4 days, then 1mg BID CHANTIX STARTING MONTH REBEKAH 0.5 MG X 11 & 1 MG X 42 TABS VARENICLINE TARTRATE Inactive ZITHROMAX 1 GM PACK DIRECTED ZITHROMAX 1 GM PACK 090069 AZITHROMYCIN Inactive MOBIC 7.5 MG TABS 1 tablet by mouthonce a day MOBIC 7.5 MG TABS 262018 MELOXICAM Inactive KLONOPIN 0.5 MG TABS 1 TABLET PO PRN KLONOPIN 0.5 MG TABS 242158 CLONAZEPAM Inactive CIPRO 500 MG TAB 1 tablet by mouth twice daily CIPRO 500 MG TAB 052067 CIPROFLOXACIN HCL Inactive AZITHROMYCIN 500 MG TABS 1 PO q day x 6 days AZITHROMYCIN 500 MG TABS 8343908 AZITHROMYCIN Inactive CYCLOBENZAPRINE HCL 10 MG TABS 1 PO q 8 hrs PRN muscle spasm 2012 CYCLOBENZAPRINE HCL 10 MG TABS 667099 CYCLOBENZAPRINE HCL Inactive METFORMIN HCL 500 MG [...] bid prn anxiety. XANAX 0.25 MG TABS 292302 ALPRAZOLAM Inactive LAMISIL AT 1 % CREA apply bid to rash LAMISIL AT 1 % CREA 588520 TERBINAFINE HCL Inactive TOPAMAX 25 MG TABS 1 tab po qhs x 1 week, then take 2 tabs po qhs TOPAMAX 25 MG TABS 273729 TOPIRAMATE Inactive TERBINAFINE HCL 1 % CREA Apply bid to rash TERBINAFINE HCL 1 % CREA 228430 TERBINAFINE HCL Inactive ZITHROMAX 250 MG TAB 2 po today, then 1 po q days 2-5 ZITHROMAX 250 MG TAB 0130620 AZITHROMYCIN Inactive ZITHROMAX 250 MG TAB 2 po today, then 1 po q days 2-5 ZITHROMAX 250 MG TAB 5739138 AZITHROMYCIN Inactive PREDNISONE 20 MG TAB 2 tabs daily for 3 days, 1 tab daily for 3 days, 1/2 tab daily for 2 days PREDNISONE 20 MG TAB 846522 PREDNISONE Inactive PREDNISONE 20 MG TAB 3 tabs daily for 3 days, 2 tab daily for 3 days, 1 tab daily for 2 days, then 1/2 tab dialy for 2 days PREDNISONE 20 MG TAB 115228 PREDNISONE Inactive OMEPRAZOLE 20 MG CPDR 1 tablet by mouth daily OMEPRAZOLE 20 MG CPDR 046500 OMEPRAZOLE Inactive PREDNISONE 20 MG TABS 3 qd x 2d, 2 qd x 2d, 1 qd x 2d, 1/2 qd x 2d PREDNISONE 20 MG TABS 063872 PREDNISONE Inactive TERBINAFINE HCL 250 MG TABS 1 qDay TERBINAFINE HCL 250 MG TABS 041885 TERBINAFINE HCL Inactive DOXYCYCLINE HYCLATE 100 MG CAP 1 cap by mouth twice daily DOXYCYCLINE HYCLATE 100 MG CAP 701952 DOXYCYCLINE HYCLATE Inactive Advance Directives Directive Description Start Date NO HEROIC MEASURES Immunizations Vaccine Administration Date Value Standard Description Boostrix (Tetanus toxoid, reduced diphtheria toxoid and acellular pertussis vaccine, adsorbed), booster Boostrix [[id number]] tetanus toxoid, reduced diphtheria toxoid, and acellular [...] 5.3 % 4.3-6.0 sodium, serum 139 mmol/L 639-188 7140/02/24 potassium, serum 4.4 mmol/L 3.5-5.2 chloride, serum [...] 1.44 m[iU]/mL 0.36-3.74 cholesterol, serum 144 mg/dL 349-356 6899/11/19 triglyceride, serum, fasting 172 mg/dL 30-200 HDL cholesterol, serum 30 mg/dL 32-96 LDL cholesterol, serum 80 mg/dL 0-130 sodium, serum 137 mmol/L 288-580 0223/11/19 potassium, serum 4.1 mmol/L 3.5-5.2 chloride, serum [...] Panel - Chemistry cholesterol, serum 118 mg/dL 822-706 9423/02/24 triglyceride, serum, fasting 141 mg/dL 30-200 HDL [...] mg/dL Encounters Code Encounter Date Provider Facility CPT-67546 Level 3 Est. 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 Patient 21:20:00 SANDWICH AND DRINK CART OPERATOR Ian Valdez MD [facility] CPT-81563 Level 3 Est. Patient 15:32:41 SANDWICH AND DRINK CART OPERATOR Juan Smith MD [facility] CPT-71742 Level 3 Est. Patient 14:45:01 CDT Eva Ferrara MD PhD [facility] CPT-21885 Level 3 Est. Patient 14:54:10 CDT Ian Valdez MD [facility] CPT-41171 Level 4 Est. Patient 20:36:52 CDT Ian Valdez MD [facility] CPT-05618 Level 4 Est. Patient 11:14:30 SANDWICH AND DRINK CART OPERATOR Ian Valdez MD [facility] CPT-07249 Level 3 Est. Patient 19:08:34 SANDWICH AND DRINK CART OPERATOR Ian Valdez MD [facility] CPT-44103 Level 3 Est. Patient 13:17:39 SANDWICH AND DRINK CART OPERATOR Ian Valdez MD [facility] CPT-66262 Level 4 Est. Patient 18:56:10 CDT Ian Valdez MD [facility] CPT-59826 Level 4 Est. Patient 16:55:56 CDT Ian Valdez MD [facility] CPT-10988 Level 3 Est. Patient 11:27:07 CDT Ian Valdez MD [facility] CPT-76698 Level 3 Est. Patient 15:17:44 CDT Law Rosas [facility] CPT-25826 Level 4 Est. Patient 15:13:53 CDT Wellington Muniz [facility] CPT-15719 Level 3 Est. Patient 14:25:12 SANDWICH AND DRINK CART OPERATOR Ian Valdez MD [facility] CPT-35173 Level 3 Est. Patient 10:24:46 CDT Ian Valdez MD [facility] CPT-92259 Level 3 Est. Patient 15:34:19 CDT Ian Valdez MD [facility] CPT-79764 Level 3 Est. Patient 14:22:41 CDT Ian Valdez MD [facility] CPT-93560 Level 3 Est. Patient 15:07:22 SANDWICH AND DRINK CART OPERATOR Ian Valdez MD [facility] CPT-40949 Level 3 New Patient 09:06:43 SANDWICH AND DRINK CART OPERATOR Ian Valdez MD [facility] CPT-90910 Level 3 Est. Patient 15:09:00 SANDWICH AND DRINK CART OPERATOR Ian Valdez MD [facility] Procedures Code Procedure Name Date Entry Date Standard Description CPT-OV Office Visit 15:49:26 SANDWICH AND DRINK CART OPERATOR CPT-J1885 Toradol 60 mg (Ketorolac) 15:37:32 CDT CPT-02510 Abx/Therapy Injection 15:37:32 CDT CPT-J1885 Toradol 60 mg (Ketorolac) 14:45:01 CDT CPT-OV Office Visit 15:19:52 CDT CPT-OV Office Visit 10:41:01 CDT CPT-90150 Core biop breast wo imaging 16:50:06 CDT CPT-OV Office Visit 16:50:05 CDT CPT-60081 UHCG (floor use only) 13:39:36 CDT CPT-74869 Nexplanon Placement 10:11:48 CDT CPT-J7307 Nexplanon (Implant) 10:11:48 CDT CPT-OV Office Visit 09:54:18 CDT CPT-88723 EKG Trac and Interp 16:50:19 CDT CPT-31483 Venipuncture Draw Fee 15:06:08 CDT CPT-J2930 Solu Medrol 125 mg (Methyl Prednisolone Sodium Succinate) 12:44:46 CDT CPT-J1055 Depo Provera 150 mg (Medroxyprogesterone) 12:44:46 CDT CPT-75647 Abx/Therapy Injection 12:44:46 CDT CPT-J1055 Depo Provera 150 mg (Medroxyprogesterone) 14:28:41 CDT CPT-J2930 Solu Medrol 125 mg (Methyl Prednisolone Sodium Succinate) 14:22:41 CDT CPT-24532 Administration single or combination vaccine inc oral 10 :08:06 CDT CPT-11367 Tdap 10:08:06 CDT CPT-G0402 Wlcm To Medicare Ex 22:17:30 CDT CPT-63167 Venipuncture Draw Fee 10:33:07 SANDWICH AND DRINK CART OPERATOR CPT-08950 Venipuncture Draw Fee 10:17:37 SANDWICH AND DRINK CART OPERATOR CPT-G0403 EKG Wlc To Medicare 22:17:30 CDT
--- OUTSIDE RECORDS SUMMARY | 2018-07-17 22:00 | XMS REPORT ---
Author Author [email or web address] [facility] Medical Staff Organization [facility] Address [address] [place] [id number] Phone [phone] Care Team Providers Care Clinical Applications Manager Name Role Phone FARHAD VALDEZ MD PP [phone] Summary purpose TRANSITION OF CARE AUTO GENERATION Chief Complaint and Reason for Visit Admit Diagnosis 1 INJURY MATERIALS BRANCH CHIEF SITE/SITE NEC Problem list No authorized problems tracked [...] tests and/or laboratory data RESULTS Radiology Results [id number]:30:00 HIP XRAY - 1 VIEW PACs Image DATE OF EXAM: Jan 25 2014 RAD 0821-HIP XRAY-1 VIEW- LEFT: RADIOLOGY REPORT DATE OF SERVICE:01/25/14 HISTORY:Left lower extremity pain following physical therapy. LATERAL VIEW LEFT HIP 1500 HOURS The femoral head and neck are normal. There is no fracture. The joint spaces well maintained. The acetabulum is normal. IMPRESSION:Negative left hip. MD LEONARDO Logan/pb1 15:18:00 / 01/25/2014 17:43:26 cc:Dr. Farhad Valdez This document has been electronically Signed by: On: DATE OF EXAM: Jan 25 2014 RAD 0821-HIP XRAY-1 VIEW- LEFT: RADIOLOGY REPORT DATE OF SERVICE:01/25/14 HISTORY:Left lower extremity pain following physical therapy. LATERAL VIEW LEFT HIP 1500 HOURS The femoral head and neck are normal. There is no fracture. The joint spaces well maintained. The acetabulum is normal. IMPRESSION:Negative left hip. MD LEONARDO Logan/juliocesar 15:18:00 / 01/25/2014 17:43:26 cc:Dr. Farhad Valdez This document has been electronically Signed by: SABINE HUMMEL On: Jan 28:30P Result Amended on 2014-01-28 at 13:30:51. Previous status was MI. KNEE XRAY - 3 VIEW PACs Image DATE OF EXAM: Jan 25 2014 RAD 0953-KNEE XRAY-3 VIEW- LEFT: RADIOLOGY REPORT DATE OF SERVICE:01/25/14 HISTORY:Knee pain following physical therapy. LEFT KNEE 3 VIEWS 1500 HOURS The joint surfaces are smooth and well maintained. There are no arthritic changes. There is no fracture. There are no calcified loose bodies. IMPRESSION:Normal knee. MD LEONARDO Logan/juliocesar 15:18:00 / 01/25/2014 17:45:33 cc:Dr. Farhad Valdez This document has been electronically Signed by: On: DATE OF EXAM: Jan 25 2014 RAD 0953-KNEE XRAY-3 VIEW- LEFT: RADIOLOGY REPORT DATE OF SERVICE:01/25/14 HISTORY:Knee pain following physical therapy. LEFT KNEE 3 VIEWS 1500 HOURS The joint surfaces are smooth and well maintained. There are no arthritic changes. There is no fracture. There are no calcified loose bodies. IMPRESSION:Normal knee. MD LEONARDO Logan/01/25/2014 15:18:00 / 01/25/2014 17:45:33 cc:Dr. Farhad Valdez This document has been electronically Signed by: SABINE HUMMEL On: Jan 28:30P Result Amended on 2014-01-28 at 13:30:54. Previous status was MI. [id number]:21:00 PELVIS XRAY - 1 VIEW PACs Image DATE OF EXAM: Jan 25 2014 RAD 1225-PELVIS XRAY-1 VIEW : RADIOLOGY REPORT DATE OF SERVICE: 01/25/2014 HISTOREY:Pelvic and lower extremity pain following physical therapy. AP [id number] HOURS The bony pelvis is normal and intact. There is no fracture. The sacroiliac joints and symphysis pubis are normal. IMPRESSION:Negative pelvis. MD LEONARDO Logan/juliocesar 15:18:00 / 01/25/2014 17:42:23 cc:Dr. Valdez This document has been electronically Signed by: On: History of procedures Procedure Code Code Type Description Date Performed Performing Physician 66299 CPT-4 X-RAY EXAM OF PELVIS 01-25-2014 SAUL EPSTEIN 91660 CPT-4 X-RAY EXAM OF KNEE, 3 01-25-2014 SAUL EPSTEIN 57113 CPT-4 X-RAY EXAM OF HIP 01-25-2014 SAUL EPSTEIN J1885 CPT-4 TORADOL SYR 30MG/ML 01-25-2014 SAUL EPSTEIN 61160 CPT-4 EMERGENCY DEPT VISIT 01-25-2014 SAUL EPSTEIN 95828 CPT-4 EMERGENCY DEPT VISIT 01-25-2014 SAUL EPSTEIN 56240 CPT-4 THER/PROPH/DIAG INJ, SC/IM 01-25-2014 SAUL EPSTEIN Functional status Functional Status Finding Observation Time Muscle Strength LLE 5 ROM full resist 54-65-493492:10 Vital signs Type Value Date Respiration Rate 20breaths per minute 07-76-970583:45 Pulse 91beats per minute 07-73-095984:45 Oxygen Saturation 94% 58-07-143428:45 BP Systolic 127mmHg 21-05-070759:45 BP Diastolic 70mmHg 83-89-383821:45 Temperature 98.8F 18-27-072293:45 Social history Type Value Smoking Status CURRENT EVERY DAY SMOKER Treatment Plan No treatment plan text is available for this visit. Hospital discharge instructions Dismissal Condition fair Disposition on DC home DC Inst/Educ Give yes Med/Side Effects Rev yes
--- OUTSIDE RECORDS SUMMARY | 2018-07-17 22:00 | XMS REPORT ---
Author Author [facility] Organization [facility] Address [address] [place], [place] [address] Phone [phone] Care Team Providers Care Waiter/Waitress Club Name Role Phone FARHAD SETHI MD PP [phone] Summary purpose TRANSITION OF CARE AUTO GENERATION [...]
--- OUTSIDE RECORDS SUMMARY | 2018-07-17 22:00 | XMS REPORT ---
Author Author [facility] Medical Staff Organization [facility] [facility] Address [address] [place] [id number] Phone [phone] Care Team Providers Care Color Worker Name Role Phone FARHAD SETHI MD PP [phone] Summary purpose TRANSITION OF CARE AUTO GENERATION [...]
--- OUTSIDE RECORDS SUMMARY | 2018-07-17 22:01 | XMS REPORT | Clinical Summary ---
Author Author Admin, ARIAN Organization [facility] Address Unknown Phone Unavailable Allergies, Adverse Reactions, [...] cap by mouth twice daily DOXYCYCLINE HYCLATE 91668596014 No Longer Active Najma Vaughn SAMI Active MULTIVITAMINS CAPS 1 tablet daily MULTIPLE VITAMIN 42169963888 Active Juan Smith MD Active CYCLOBENZAPRINE HCL 10 MG TABS 1/2 - 1 tab by mouth three times daily if needed for spasms/pain CYCLOBENZAPRINE HCL 32543491507 Active Ian Valdez MD Active GLUCOPHAGE 500 MG TABS 1 tab BID with morning and night meals METFORMIN HCL 46392226493 Active Eva Ferrara MD PhD Active PROGESTERONE MICRONIZED 100 MG CAPS 2 caps daily day 16 thru 25 of cycle 2013 PROGESTERONE MICRONIZED 14029047488 Active Eva Ferrara MD PhD Active TERBINAFINE HCL 1 % CREA Apply bid to rash TERBINAFINE HCL 38564331638 No Longer Active Eva Ferrara MD PhD Active TOPAMAX 25 MG TABS 1 tab po qhs x 1 week, then take 2 tabs po qhs TOPIRAMATE 21982488157 No Longer Active Thom Gilbert MD Active ULTRAM 50 MG TAB take 1 tab po q6hrs prn pain TRAMADOL HCL 41355039766 Active Juan Smith MD Active LAMISIL AT 1 % CREA apply bid to rash TERBINAFINE HCL 32983730619 No Longer Active Thom Gilbert MD Active TERBINAFINE HCL 250 MG TABS 1 qDay TERBINAFINE HCL 99522469909 No Longer Active Ian Valdez MD Active XANAX 0.25 MG TABS take 1 tab po bid prn anxiety. ALPRAZOLAM 56875658043 No Longer Active Ian Valdez MD Active FISH OIL 1000 MG CAPS 2 caps PO once daily at bedtime OMEGA-3 FATTY ACIDS 05777632046 No Longer Active Ian Valdez MD Active KLOR-CON M20 20 MEQ CR-TABS take 1 tab po qday with lasix POTASSIUM CHLORIDE GALILEO CR 90413599674 Active Ian Valdez MD Active LASIX 20 MG TAB 1 tablet by mouth daily prn swelling FUROSEMIDE 65475530510 Active Ian Valdez MD Active FLONASE 50 MCG/ACT SUSP 2 puffs in each nostril once daily at bedtime FLUTICASONE PROPIONATE 80695627867 Active Ian Valdez MD Active CVS MELATONIN 3 MG TABS 2 tabs PO at bedtime MELATONIN 78431511659 Active Ian Valdez MD Active PULMICORT FLEXHALER 180 MCG/ACT AEPB 2 INH BID BUDESONIDE 36379315469 No Longer Active Ian Valdez MD Active METFORMIN HCL 500 MG TB24 1 TAB PO Q HS METFORMIN HCL 78805975463 No Longer Active Ian Valdez MD Active CYCLOBENZAPRINE HCL 10 MG TABS 1 PO q 8 hrs PRN muscle spasm 2012 CYCLOBENZAPRINE HCL 52280089117 No Longer Active Ian Valdez MD Active AZITHROMYCIN 500 MG TABS 1 PO q day x 6 days AZITHROMYCIN 84081007279 No Longer Active Ian Valdez MD Active CIPRO 500 MG TAB 1 tablet by mouth twice daily CIPROFLOXACIN HCL 45466844285 No Longer Active Ian Valdez MD Active PREDNISONE 20 MG TABS 3 qd x 2d, 2 qd x 2d, 1 qd x 2d, 1/2 qd x 2d PREDNISONE 81071221653 No Longer Active Law FIGUEROA Active CELEXA 40 MG TABS 2 PO DAILY CITALOPRAM HYDROBROMIDE 33813397085 Active Ian Valdez MD Active OMEPRAZOLE 20 MG CPDR 1 tablet by mouth daily OMEPRAZOLE 26420945555 No Longer Active [place] FIGUEROA Active KLONOPIN 0.5 MG TABS 1 TABLET PO PRN CLONAZEPAM 97648057217 No Longer Active [place] FIGUEROA Active MOBIC 7.5 MG TABS 1 tablet by mouthonce a day MELOXICAM 13768139464 No Longer Active [place] FIGUEROA Active ZITHROMAX 1 GM PACK DIRECTED AZITHROMYCIN 82459798333 No Longer Active Ian Valdez MD Active ALBUTEROL SULFATE 0.083 % NEBU SOLN one vial per nebulizer every 4-6 hours as needed ALBUTEROL SULFATE 20891928793 Active Ian Valdez MD Active CHANTIX STARTING MONTH REBEKAH 0.5 MG X 11 & 1 MG X 42 TABS 0.5mg daily for 3 days , then 0.5mg BID for 4 days, then 1mg BID VARENICLINE TARTRATE 30827630213 No Longer Active Ian Valdez MD Active ZITHROMAX 1 GM PACK DIRECTED AZITHROMYCIN 69038860084 No Longer Active Ian Valdez MD Active AURALGAN 1.4-5.5 % SOLN BENZOCAINE-ANTIPYRINE 33323612075 No Longer Active Ian Valdez MD Active PREDNISONE 20 MG TAB 3 tabs daily for 3 days, 2 tab daily for 3 days, 1 tab daily for 2 days, then 1/2 tab dialy for 2 days PREDNISONE 04944180948 No Longer Active Ian Valdez MD Active SIMVASTATIN 40 MG TABS 1 TABLET PO Q HS SIMVASTATIN 11347895679 Active Ian Valdez MD Active SIMVASTATIN 80 MG TABS Take one by mouth daily SIMVASTATIN 40599539638 No Longer Active Ian Valdez MD Active PREDNISONE 20 MG TAB 2 tabs daily for 3 days, 1 tab daily for 3 days, 1/2 tab daily for 2 days PREDNISONE 36975419308 No Longer Active Ian Valdez MD Active ZITHROMAX 250 MG TAB 2 po today, then 1 po q days 2-5 AZITHROMYCIN 39393492077 No Longer Active Ian Valdez MD Active TRAZODONE HCL 100 MG TABS 2 TABS PO Q HS TRAZODONE HCL 19085744174 Active Ian Valdez MD Active ZITHROMAX 250 MG TAB 2 po today, then 1 po q days 2-5 AZITHROMYCIN 76437210243 No Longer Active Ian Valdez MD Active SIMVASTATIN 80 MG TABS Take one by mouth daily SIMVASTATIN 80 MG TABS 174045 SIMVASTATIN Inactive AURALGAN 1.4-5.5 % SOLN AURALGAN 1.4-5.5 % SOLN BENZOCAINE-ANTIPYRINE Inactive ZITHROMAX 1 GM PACK DIRECTED ZITHROMAX 1 GM PACK 389219 AZITHROMYCIN Inactive CHANTIX STARTING MONTH REBEKAH 0.5 MG X 11 & 1 MG X 42 TABS 0.5mg daily for 3 days , then 0.5mg BID for 4 days, then 1mg BID CHANTIX STARTING MONTH REBEKAH 0.5 MG X 11 & 1 MG X 42 TABS VARENICLINE TARTRATE Inactive ZITHROMAX 1 GM PACK DIRECTED ZITHROMAX 1 GM PACK 281730 AZITHROMYCIN Inactive MOBIC 7.5 MG TABS 1 tablet by mouthonce a day MOBIC 7.5 MG TABS 334201 MELOXICAM Inactive KLONOPIN 0.5 MG TABS 1 TABLET PO PRN KLONOPIN 0.5 MG TABS 275901 CLONAZEPAM Inactive CIPRO 500 MG TAB 1 tablet by mouth twice daily CIPRO 500 MG TAB 368334 CIPROFLOXACIN HCL Inactive AZITHROMYCIN 500 MG TABS 1 PO q day x 6 days AZITHROMYCIN 500 MG TABS 0812734 AZITHROMYCIN Inactive CYCLOBENZAPRINE HCL 10 MG TABS 1 PO q 8 hrs PRN muscle spasm 2012 CYCLOBENZAPRINE HCL 10 MG TABS 123898 CYCLOBENZAPRINE HCL Inactive METFORMIN HCL 500 MG [...] bid prn anxiety. XANAX 0.25 MG TABS 777724 ALPRAZOLAM Inactive LAMISIL AT 1 % CREA apply bid to rash LAMISIL AT 1 % CREA 214057 TERBINAFINE HCL Inactive TOPAMAX 25 MG TABS 1 tab po qhs x 1 week, then take 2 tabs po qhs TOPAMAX 25 MG TABS 350681 TOPIRAMATE Inactive TERBINAFINE HCL 1 % CREA Apply bid to rash TERBINAFINE HCL 1 % CREA 338425 TERBINAFINE HCL Inactive ZITHROMAX 250 MG TAB 2 po today, then 1 po q days 2-5 ZITHROMAX 250 MG TAB 0761164 AZITHROMYCIN Inactive ZITHROMAX 250 MG TAB 2 po today, then 1 po q days 2-5 ZITHROMAX 250 MG TAB 8359229 AZITHROMYCIN Inactive PREDNISONE 20 MG TAB 2 tabs daily for 3 days, 1 tab daily for 3 days, 1/2 tab daily for 2 days PREDNISONE 20 MG TAB 775337 PREDNISONE Inactive PREDNISONE 20 MG TAB 3 tabs daily for 3 days, 2 tab daily for 3 days, 1 tab daily for 2 days, then 1/2 tab dialy for 2 days PREDNISONE 20 MG TAB 644174 PREDNISONE Inactive OMEPRAZOLE 20 MG CPDR 1 tablet by mouth daily OMEPRAZOLE 20 MG CPDR 932925 OMEPRAZOLE Inactive PREDNISONE 20 MG TABS 3 qd x 2d, 2 qd x 2d, 1 qd x 2d, 1/2 qd x 2d PREDNISONE 20 MG TABS 773183 PREDNISONE Inactive TERBINAFINE HCL 250 MG TABS 1 qDay TERBINAFINE HCL 250 MG TABS 524312 TERBINAFINE HCL Inactive DOXYCYCLINE HYCLATE 100 MG CAP 1 cap by mouth twice daily DOXYCYCLINE HYCLATE 100 MG CAP 932537 DOXYCYCLINE HYCLATE Inactive Advance Directives Directive Description Start Date NO HEROIC MEASURES Immunizations Vaccine Administration Date Value Standard Description Boostrix (Tetanus toxoid, reduced diphtheria toxoid and acellular pertussis vaccine, adsorbed), booster Boostrix [[id number]] tetanus toxoid, reduced diphtheria toxoid, and acellular [...] 5.3 % 4.3-6.0 sodium, serum 139 mmol/L 854-971 1323/02/24 potassium, serum 4.4 mmol/L 3.5-5.2 chloride, serum [...] 1.44 m[iU]/mL 0.36-3.74 cholesterol, serum 144 mg/dL 451-139 7811/11/19 triglyceride, serum, fasting 172 mg/dL 30-200 HDL cholesterol, serum 30 mg/dL 32-96 LDL cholesterol, serum 80 mg/dL 0-130 sodium, serum 137 mmol/L 188-135 6131/11/19 potassium, serum 4.1 mmol/L 3.5-5.2 chloride, serum [...] Panel - Chemistry cholesterol, serum 118 mg/dL 862-281 9202/02/24 triglyceride, serum, fasting 141 mg/dL 30-200 HDL [...] mg/dL Encounters Code Encounter Date Provider Facility CPT-57953 Level 3 Est. Patient 15:50:27 INTER COM SERVICER Najma Madiallarahat GALLARDO [facility] CPT-69152 Level 4 Est. Patient 21:20:00 INTER COM SERVICER Ian Valdez MD [facility] CPT-46841 Level 3 Est. Patient 15:32:41 INTER COM SERVICER Juan Smith MD [facility] CPT-96604 Level 3 Est. Patient 14:45:01 CDT Eva Ferrara MD PhD [facility] CPT-69464 Level 3 Est. Patient 14:54:10 CDT Ian Valdez MD [facility] CPT-34898 Level 4 Est. Patient 20:36:52 CDT Ian Valdez MD [facility] CPT-68357 Level 4 Est. Patient 11:14:30 INTER COM SERVICER Ian Valdez MD [facility] CPT-15167 Level 3 Est. Patient 19:08:34 INTER COM SERVICER Ian Valdez MD [facility] CPT-02216 Level 3 Est. Patient 13:17:39 INTER COM SERVICER Ian Valdez MD [facility] CPT-74927 Level 4 Est. Patient 18:56:10 CDT Ian Valdez MD [facility] CPT-26515 Level 4 Est. Patient 16:55:56 CDT Ian Valdez MD [facility] CPT-96975 Level 3 Est. Patient 11:27:07 CDT Ian Valdez MD [facility] CPT-27025 Level 3 Est. Patient 15:17:44 CDT Law Rosas [facility] CPT-29988 Level 4 Est. Patient 15:13:53 CDT Wellington Muniz [facility] CPT-50627 Level 3 Est. Patient 14:25:12 INTER COM SERVICER Ian Valdez MD [facility] CPT-97970 Level 3 Est. Patient 10:24:46 CDT Ian Valdez MD [facility] CPT-19749 Level 3 Est. Patient 15:34:19 CDT Ian Valdez MD [facility] CPT-69526 Level 3 Est. Patient 14:22:41 CDT Ian Valdez MD [facility] CPT-61222 Level 3 Est. Patient 15:07:22 INTER COM SERVICER Ian Valdez MD [facility] CPT-68848 Level 3 New Patient 09:06:43 INTER COM SERVICER Ian Valdez MD [facility] CPT-57362 Level 3 Est. Patient 15:09:00 INTER COM SERVICER Ian Valdez MD [facility] Procedures Code Procedure Name Date Entry Date Standard Description CPT-OV Office Visit 15:49:26 INTER COM SERVICER CPT-J1885 Toradol 60 mg (Ketorolac) 15:37:32 CDT CPT-19952 Abx/Therapy Injection 15:37:32 CDT CPT-J1885 Toradol 60 mg (Ketorolac) 14:45:01 CDT CPT-OV Office Visit 15:19:52 CDT CPT-OV Office Visit 10:41:01 CDT CPT-68761 Core biop breast wo imaging 16:50:06 CDT CPT-OV Office Visit 16:50:05 CDT CPT-06610 UHCG (floor use only) 13:39:36 CDT CPT-12995 Nexplanon Placement 10:11:48 CDT CPT-J7307 Nexplanon (Implant) 10:11:48 CDT CPT-OV Office Visit 09:54:18 CDT CPT-25984 EKG Trac and Interp 16:50:19 CDT CPT-29062 Venipuncture Draw Fee 15:06:08 CDT CPT-J2930 Solu Medrol 125 mg (Methyl Prednisolone Sodium Succinate) 12:44:46 CDT CPT-J1055 Depo Provera 150 mg (Medroxyprogesterone) 12:44:46 CDT CPT-72785 Abx/Therapy Injection 12:44:46 CDT CPT-J1055 Depo Provera 150 mg (Medroxyprogesterone) 14:28:41 CDT CPT-J2930 Solu Medrol 125 mg (Methyl Prednisolone Sodium Succinate) 14:22:41 CDT CPT-43877 Administration single or combination vaccine inc oral 10 :08:06 CDT CPT-39379 Tdap 10:08:06 CDT CPT-G0402 Wlcm To Medicare Ex 22:17:30 CDT CPT-86582 Venipuncture Draw Fee 10:33:07 INTER COM SERVICER CPT-64071 Venipuncture Draw Fee 10:17:37 INTER COM SERVICER CPT-G0403 EKG Wlc To Medicare 22:17:30 CDT
--- OUTSIDE RECORDS SUMMARY | 2018-07-17 22:02 | XMS REPORT | Clinical Summary ---
Author Author Admin, ARIAN Organization [facility] Address Unknown Phone Unavailable Allergies, Adverse [...] FAMILY HISTORY OF ALCOHOLISM ICD-V61.41 Inactive Ian Vadlez MD FH DIABETES ICD-V18.0 Inactive Ian Valdez MD MEMORY LOSS ICD-780.93 Inactive Ian Valdez MD ROUTINE HEALTH MAINTENANCE ICD-V70.0 Inactive Thom Gilbert MD FAMILY HISTORY OF ISCHEMIC HEART DISEASE ICD-V17.3 Inactive Ian Valdez MD EUSTACHIAN TUBE DYSFUNCTION ICD-381.81 Inactive Ian Valdez MD SINUSITIS ICD-473.9 Inactive Thom Gilbert MD CONTACT DERMATITIS DUE TO POISON CARINE ICD-692.6 Inactive aIn Valdez MD CONTRACEPTIVE MANAGEMENT ICD-V25.09 Inactive Thom [...] cap by mouth twice daily DOXYCYCLINE HYCLATE 67126262275 Active Najma Vaughn SAMI Active MULTIVITAMINS CAPS 1 tablet daily MULTIPLE VITAMIN 58047285923 Active Juan Smith MD Active CYCLOBENZAPRINE HCL 10 MG TABS 1/2 - 1 tab by mouth three times daily if needed for spasms/pain CYCLOBENZAPRINE HCL 33333851204 Active Ian Valdez MD Active GLUCOPHAGE 500 MG TABS 1 tab BID with morning and night meals METFORMIN HCL 11456711000 Active Eva Ferrara MD PhD Active PROGESTERONE MICRONIZED 100 MG CAPS 2 caps daily day 16 thru 25 of cycle 2013 PROGESTERONE MICRONIZED 55168721676 Active Eva Ferrara MD PhD Active TERBINAFINE HCL 1 % CREA Apply bid to rash TERBINAFINE HCL 81939704179 No Longer Active Eva eFrrara MD PhD Active TOPAMAX 25 MG TABS 1 tab po qhs x 1 week, then take 2 tabs po qhs TOPIRAMATE 51872552291 No Longer Active Thom Gilbert MD Active ULTRAM 50 MG TAB take 1 tab po q6hrs prn pain TRAMADOL HCL 96986432237 Active Ian Valdez MD Active LAMISIL AT 1 % CREA apply bid to rash TERBINAFINE HCL 57484915319 No Longer Active Thom Gilbert MD Active TERBINAFINE HCL 250 MG TABS 1 qDay TERBINAFINE HCL 54106395560 No Longer Active Ian Valdez MD Active XANAX 0.25 MG TABS take 1 tab po bid prn anxiety. ALPRAZOLAM 85897456981 No Longer Active Ian Valdez MD Active FISH OIL 1000 MG CAPS 2 caps PO once daily at bedtime OMEGA-3 FATTY ACIDS 69343148014 No Longer Active Ian Valdez MD Active KLOR-CON M20 20 MEQ CR-TABS take 1 tab po qday with lasix POTASSIUM CHLORIDE GALILEO CR 00355958430 Active Ian Valdez MD Active LASIX 20 MG TAB 1 tablet by mouth daily prn swelling FUROSEMIDE 81823365146 Active Ian Valdez MD Active FLONASE 50 MCG/ACT SUSP 2 puffs in each nostril once daily at bedtime FLUTICASONE PROPIONATE 52949353406 Active Ian Valdez MD Active CVS MELATONIN 3 MG TABS 2 tabs PO at bedtime MELATONIN 51790478052 Active Ian Valdez MD Active PULMICORT FLEXHALER 180 MCG/ACT AEPB 2 INH BID BUDESONIDE 23158137258 No Longer Active Ian Valdez MD Active METFORMIN HCL 500 MG TB24 1 TAB PO Q HS METFORMIN HCL 58218207427 No Longer Active Ian Valdez MD Active CYCLOBENZAPRINE HCL 10 MG TABS 1 PO q 8 hrs PRN muscle spasm 2012 CYCLOBENZAPRINE HCL 57429990864 No Longer Active Ian Valdez MD Active AZITHROMYCIN 500 MG TABS 1 PO q day x 6 days AZITHROMYCIN 32403795853 No Longer Active Ian Valdez MD Active CIPRO 500 MG TAB 1 tablet by mouth twice daily CIPROFLOXACIN HCL 85368032405 No Longer Active Ian Valdez MD Active PREDNISONE 20 MG TABS 3 qd x 2d, 2 qd x 2d, 1 qd x 2d, 1/2 qd x 2d PREDNISONE 78102667014 No Longer Active Law FIGUEROA Active CELEXA 40 MG TABS 2 PO DAILY CITALOPRAM HYDROBROMIDE 92782656047 Active Ian Valdez MD Active OMEPRAZOLE 20 MG CPDR 1 tablet by mouth daily OMEPRAZOLE 78209110828 No Longer Active [place] FIGUEROA Active KLONOPIN 0.5 MG TABS 1 TABLET PO PRN CLONAZEPAM 41472856769 No Longer Active [place] FIGUEROA Active MOBIC 7.5 MG TABS 1 tablet by mouthonce a day MELOXICAM 85229402253 No Longer Active [place] FIGUEROA Active ZITHROMAX 1 GM PACK DIRECTED AZITHROMYCIN 56990753806 No Longer Active Ian Valdez MD Active ALBUTEROL SULFATE 0.083 % NEBU SOLN one vial per nebulizer every 4-6 hours as needed ALBUTEROL SULFATE 78180958394 Active Ian Valdez MD Active CHANTIX STARTING MONTH REBEKAH 0.5 MG X 11 & 1 MG X 42 TABS 0.5mg daily for 3 days , then 0.5mg BID for 4 days, then 1mg BID VARENICLINE TARTRATE 76716918602 No Longer Active Ian Valdez MD Active ZITHROMAX 1 GM PACK DIRECTED AZITHROMYCIN 01528190183 No Longer Active Ian Valdez MD Active AURALGAN 1.4-5.5 % SOLN BENZOCAINE-ANTIPYRINE 85398967174 No Longer Active Ian Valdez MD Active PREDNISONE 20 MG TAB 3 tabs daily for 3 days, 2 tab daily for 3 days, 1 tab daily for 2 days, then 1/2 tab dialy for 2 days PREDNISONE 28237414247 No Longer Active Ian Valdez MD Active SIMVASTATIN 40 MG TABS 1 TABLET PO Q HS SIMVASTATIN 52094634420 Active Ian Valdez MD Active SIMVASTATIN 80 MG TABS Take one by mouth daily SIMVASTATIN 22240677942 No Longer Active Ian Valdez MD Active PREDNISONE 20 MG TAB 2 tabs daily for 3 days, 1 tab daily for 3 days, 1/2 tab daily for 2 days PREDNISONE 63148641643 No Longer Active Ian Valdez MD Active ZITHROMAX 250 MG TAB 2 po today, then 1 po q days 2-5 AZITHROMYCIN 01472557753 No Longer Active Ian Valdez MD Active TRAZODONE HCL 100 MG TABS 2 TABS PO Q HS TRAZODONE HCL 96072189381 Active Ian Valdez MD Active ZITHROMAX 250 MG TAB 2 po today, then 1 po q days 2-5 AZITHROMYCIN 96807001732 No Longer Active Ian Valdez MD Active SIMVASTATIN 80 MG TABS Take one by mouth daily SIMVASTATIN 80 MG TABS 317924 SIMVASTATIN Inactive AURALGAN 1.4-5.5 % SOLN AURALGAN 1.4-5.5 % SOLN BENZOCAINE-ANTIPYRINE Inactive ZITHROMAX 1 GM PACK DIRECTED ZITHROMAX 1 GM PACK 099744 AZITHROMYCIN Inactive CHANTIX STARTING MONTH REBEKAH 0.5 MG X 11 & 1 MG X 42 TABS 0.5mg daily for 3 days , then 0.5mg BID for 4 days, then 1mg BID CHANTIX STARTING MONTH REBEKAH 0.5 MG X 11 & 1 MG X 42 TABS VARENICLINE TARTRATE Inactive ZITHROMAX 1 GM PACK DIRECTED ZITHROMAX 1 GM PACK 614261 AZITHROMYCIN Inactive MOBIC 7.5 MG TABS 1 tablet by mouthonce a day MOBIC 7.5 MG TABS 502231 MELOXICAM Inactive KLONOPIN 0.5 MG TABS 1 TABLET PO PRN KLONOPIN 0.5 MG TABS 235769 CLONAZEPAM Inactive CIPRO 500 MG TAB 1 tablet by mouth twice daily CIPRO 500 MG TAB 128326 CIPROFLOXACIN HCL Inactive AZITHROMYCIN 500 MG TABS 1 PO q day x 6 days AZITHROMYCIN 500 MG TABS 7299898 AZITHROMYCIN Inactive CYCLOBENZAPRINE HCL 10 MG TABS 1 PO q 8 hrs PRN muscle spasm 2012 CYCLOBENZAPRINE HCL 10 MG TABS 847268 CYCLOBENZAPRINE HCL Inactive METFORMIN HCL 500 MG [...] bid prn anxiety. XANAX 0.25 MG TABS 019109 ALPRAZOLAM Inactive LAMISIL AT 1 % CREA apply bid to rash LAMISIL AT 1 % CREA 597381 TERBINAFINE HCL Inactive TOPAMAX 25 MG TABS 1 tab po qhs x 1 week, then take 2 tabs po qhs TOPAMAX 25 MG TABS 493006 TOPIRAMATE Inactive TERBINAFINE HCL 1 % CREA Apply bid to rash TERBINAFINE HCL 1 % CREA 493185 TERBINAFINE HCL Inactive ZITHROMAX 250 MG TAB 2 po today, then 1 po q days 2-5 ZITHROMAX 250 MG TAB 6204242 AZITHROMYCIN Inactive ZITHROMAX 250 MG TAB 2 po today, then 1 po q days 2-5 ZITHROMAX 250 MG TAB 0249520 AZITHROMYCIN Inactive PREDNISONE 20 MG TAB 2 tabs daily for 3 days, 1 tab daily for 3 days, 1/2 tab daily for 2 days PREDNISONE 20 MG TAB 931864 PREDNISONE Inactive PREDNISONE 20 MG TAB 3 tabs daily for 3 days, 2 tab daily for 3 days, 1 tab daily for 2 days, then 1/2 tab dialy for 2 days PREDNISONE 20 MG TAB 947722 PREDNISONE Inactive OMEPRAZOLE 20 MG CPDR 1 tablet by mouth daily OMEPRAZOLE 20 MG CPDR 937334 OMEPRAZOLE Inactive PREDNISONE 20 MG TABS 3 qd x 2d, 2 qd x 2d, 1 qd x 2d, 1/2 qd x 2d PREDNISONE 20 MG TABS 889227 PREDNISONE Inactive TERBINAFINE HCL 250 MG TABS 1 qDay TERBINAFINE HCL 250 MG TABS 559587 TERBINAFINE HCL Inactive Advance Directives Directive Description Start Date NO HEROIC MEASURES Immunizations Vaccine Administration Date Value Standard Description Boostrix (Tetanus toxoid, reduced diphtheria toxoid and acellular pertussis vaccine, adsorbed), booster Boostrix [[id number]] tetanus toxoid, reduced diphtheria toxoid, and acellular [...] 5.3 % 4.3-6.0 sodium, serum 139 mmol/L 940-876 4918/02/24 potassium, serum 4.4 mmol/L 3.5-5.2 chloride, serum [...] 1.44 m[iU]/mL 0.36-3.74 cholesterol, serum 144 mg/dL 616-495 5808/11/19 triglyceride, serum, fasting 172 mg/dL 30-200 HDL cholesterol, serum 30 mg/dL 32-96 LDL cholesterol, serum 80 mg/dL 0-130 sodium, serum 137 mmol/L 554-003 5451/11/19 potassium, serum 4.1 mmol/L 3.5-5.2 chloride, serum [...] Panel - Chemistry cholesterol, serum 118 mg/dL 188-359 8188/02/24 triglyceride, serum, fasting 141 mg/dL 30-200 HDL [...] mg/dL Encounters Code Encounter Date Provider Facility CPT-26770 Level 3 Est. Patient 15:50:27 TECHNICAL TRAINING MANAGER Najma Vaughn SAMI [facility] CPT-01474 Level 4 Est. Patient 21:20:00 TECHNICAL TRAINING MANAGER Ian Valdez MD [facility] CPT-38574 Level 3 Est. Patient 15:32:41 TECHNICAL TRAINING MANAGER Juan Smith MD [facility] CPT-47715 Level 3 Est. Patient 14:45:01 CDT Eva Ferrara MD PhD [facility] CPT-75430 Level 3 Est. Patient 14:54:10 CDT Ian Valdez MD [facility] CPT-99985 Level 4 Est. Patient 20:36:52 CDT Ian Valdez MD [facility] CPT-53751 Level 4 Est. Patient 11:14:30 TECHNICAL TRAINING MANAGER Ian Valdez MD [facility] CPT-16651 Level 3 Est. Patient 19:08:34 TECHNICAL TRAINING MANAGER Ian Valdez MD [facility] CPT-08003 Level 3 Est. Patient 13:17:39 TECHNICAL TRAINING MANAGER Ian Valdez MD [facility] CPT-81604 Level 4 Est. Patient 18:56:10 CDT Ian Valdez MD [facility] CPT-93598 Level 4 Est. Patient 16:55:56 CDT Ian Valdez MD [facility] CPT-43687 Level 3 Est. Patient 11:27:07 CDT Ian Valdez MD [facility] CPT-96920 Level 3 Est. Patient 15:17:44 CDT Law FIGUEROA [facility] CPT-46664 Level 4 Est. Patient 15:13:53 CDT [place] FIGUEROA [facility] CPT-07884 Level 3 Est. Patient 14:25:12 TECHNICAL TRAINING MANAGER Ian Valdez MD [facility] CPT-65346 Level 3 Est. Patient 10:24:46 CDT Ian Valdez MD [facility] CPT-54209 Level 3 Est. Patient 15:34:19 CDT Ian Valdez MD [facility] CPT-12567 Level 3 Est. Patient 14:22:41 CDT Ian Valdez MD [facility] CPT-00385 Level 3 Est. Patient 15:07:22 TECHNICAL TRAINING MANAGER Ian Valdez MD [facility] CPT-48381 Level 3 New Patient 09:06:43 TECHNICAL TRAINING MANAGER Ian Valdez MD [facility] CPT-86887 Level 3 Est. Patient 15:09:00 TECHNICAL TRAINING MANAGER Ian Valdez MD [facility] Procedures Code Procedure Name Date Entry Date Standard Description CPT-OV Office Visit 15:49:26 TECHNICAL TRAINING MANAGER CPT-J1885 Toradol 60 mg (Ketorolac) 15:37:32 CDT CPT-30541 Abx/Therapy Injection 15:37:32 CDT CPT-J1885 Toradol 60 mg (Ketorolac) 14:45:01 CDT CPT-OV Office Visit 15:19:52 CDT CPT-OV Office Visit 10:41:01 CDT CPT-10990 Core biop breast wo imaging 16:50:06 CDT CPT-OV Office Visit 16:50:05 CDT CPT-73449 UHCG (floor use only) 13:39:36 CDT CPT-43598 Nexplanon Placement 10:11:48 CDT CPT-J7307 Nexplanon (Implant) 10:11:48 CDT CPT-OV Office Visit 09:54:18 CDT CPT-66642 EKG Trac and Interp 16:50:19 CDT CPT-63931 Venipuncture Draw Fee 15:06:08 CDT CPT-J2930 Solu Medrol 125 mg (Methyl Prednisolone Sodium Succinate) 12:44:46 CDT CPT-J1055 Depo Provera 150 mg (Medroxyprogesterone) 12:44:46 CDT CPT-69150 Abx/Therapy Injection 12:44:46 CDT CPT-J1055 Depo Provera 150 mg (Medroxyprogesterone) 14:28:41 CDT CPT-J2930 Solu Medrol 125 mg (Methyl Prednisolone Sodium Succinate) 14:22:41 CDT CPT-74537 Administration single or combination vaccine inc oral 10 :08:06 CDT CPT-30913 Tdap 10:08:06 CDT CPT-G0402 Wlcm To Medicare Ex 22:17:30 CDT CPT-14696 Venipuncture Draw Fee 10:33:07 TECHNICAL TRAINING MANAGER CPT-50415 Venipuncture Draw Fee 10:17:37 TECHNICAL TRAINING MANAGER CPT-G0403 EKG Wlc To Medicare 22:17:30 CDT
--- OUTSIDE RECORDS SUMMARY | 2018-07-17 22:04 | XMS REPORT | Clinical Summary ---
Author Author Admin, ARIAN Organization [facility] Address Unknown Phone Unavailable Allergies, Adverse [...] Thom Gilbert MD Chronic pain ICD-338.29 Inactive hTom Gilbert MD Unspecified procreative management ICD-V26.9 Inactive [...] cap by mouth twice daily DOXYCYCLINE HYCLATE 88999823123 Active Najma Vaughn SAMI Active MULTIVITAMINS CAPS 1 tablet daily MULTIPLE VITAMIN 80627133966 Active Juan Smith MD Active CYCLOBENZAPRINE HCL 10 MG TABS 1/2 - 1 tab by mouth three times daily if needed for spasms/pain CYCLOBENZAPRINE HCL 99384185988 Active Ian Valdez MD Active GLUCOPHAGE 500 MG TABS 1 tab BID with morning and night meals METFORMIN HCL 26159845420 Active Eva Ferrara MD PhD Active PROGESTERONE MICRONIZED 100 MG CAPS 2 caps daily day 16 thru 25 of cycle 2013 PROGESTERONE MICRONIZED 17009616461 Active Eva Ferrara MD PhD Active TERBINAFINE HCL 1 % CREA Apply bid to rash TERBINAFINE HCL 63805295904 No Longer Active Eva Ferrara MD PhD Active TOPAMAX 25 MG TABS 1 tab po qhs x 1 week, then take 2 tabs po qhs TOPIRAMATE 75996068200 No Longer Active Thom Gilbert MD Active ULTRAM 50 MG TAB take 1 tab po q6hrs prn pain TRAMADOL HCL 87089599025 Active Ian Valdez MD Active LAMISIL AT 1 % CREA apply bid to rash TERBINAFINE HCL 14619075489 No Longer Active Thom Gilbert MD Active TERBINAFINE HCL 250 MG TABS 1 qDay TERBINAFINE HCL 74330455795 No Longer Active Ian Valdez MD Active XANAX 0.25 MG TABS take 1 tab po bid prn anxiety. ALPRAZOLAM 44373126855 No Longer Active Ian Valdez MD Active FISH OIL 1000 MG CAPS 2 caps PO once daily at bedtime OMEGA-3 FATTY ACIDS 63082461051 No Longer Active Ian Valdez MD Active KLOR-CON M20 20 MEQ CR-TABS take 1 tab po qday with lasix POTASSIUM CHLORIDE GALILEO CR 75088501090 Active Ian Valdez MD Active LASIX 20 MG TAB 1 tablet by mouth daily prn swelling FUROSEMIDE 33734839552 Active Ian Valdez MD Active FLONASE 50 MCG/ACT SUSP 2 puffs in each nostril once daily at bedtime FLUTICASONE PROPIONATE 95015195714 Active Ian Valdez MD Active CVS MELATONIN 3 MG TABS 2 tabs PO at bedtime MELATONIN 57039379650 Active Ian Valdez MD Active PULMICORT FLEXHALER 180 MCG/ACT AEPB 2 INH BID BUDESONIDE 45032185129 No Longer Active Ian Valdez MD Active METFORMIN HCL 500 MG TB24 1 TAB PO Q HS METFORMIN HCL 16199224758 No Longer Active Ian Valdez MD Active CYCLOBENZAPRINE HCL 10 MG TABS 1 PO q 8 hrs PRN muscle spasm 2012 CYCLOBENZAPRINE HCL 57290570858 No Longer Active aIn Valdez MD Active AZITHROMYCIN 500 MG TABS 1 PO q day x 6 days AZITHROMYCIN 91676335167 No Longer Active Ian Valdez MD Active CIPRO 500 MG TAB 1 tablet by mouth twice daily CIPROFLOXACIN HCL 80346870987 No Longer Active Ian Valdez MD Active PREDNISONE 20 MG TABS 3 qd x 2d, 2 qd x 2d, 1 qd x 2d, 1/2 qd x 2d PREDNISONE 32101695321 No Longer Active Law FIGUEROA Active CELEXA 40 MG TABS 2 PO DAILY CITALOPRAM HYDROBROMIDE 14568009380 Active Ian Valdez MD Active OMEPRAZOLE 20 MG CPDR 1 tablet by mouth daily OMEPRAZOLE 21346439948 No Longer Active [place] FIGUEROA Active KLONOPIN 0.5 MG TABS 1 TABLET PO PRN CLONAZEPAM 16205791062 No Longer Active [place] FIGUEROA Active MOBIC 7.5 MG TABS 1 tablet by mouthonce a day MELOXICAM 77379023272 No Longer Active [place] FIGUEROA Active ZITHROMAX 1 GM PACK DIRECTED AZITHROMYCIN 55568206789 No Longer Active Ian Valdez MD Active ALBUTEROL SULFATE 0.083 % NEBU SOLN one vial per nebulizer every 4-6 hours as needed ALBUTEROL SULFATE 94419474750 Active Ian Valdez MD Active CHANTIX STARTING MONTH REBEKAH 0.5 MG X 11 & 1 MG X 42 TABS 0.5mg daily for 3 days , then 0.5mg BID for 4 days, then 1mg BID VARENICLINE TARTRATE 07630808572 No Longer Active Ian Valdez MD Active ZITHROMAX 1 GM PACK DIRECTED AZITHROMYCIN 53188518945 No Longer Active Ian Valdez MD Active AURALGAN 1.4-5.5 % SOLN BENZOCAINE-ANTIPYRINE 43106739843 No Longer Active Ian Valdez MD Active PREDNISONE 20 MG TAB 3 tabs daily for 3 days, 2 tab daily for 3 days, 1 tab daily for 2 days, then 1/2 tab dialy for 2 days PREDNISONE 78879800453 No Longer Active Ian Valdez MD Active SIMVASTATIN 40 MG TABS 1 TABLET PO Q HS SIMVASTATIN 16645460068 Active Ian Valdez MD Active SIMVASTATIN 80 MG TABS Take one by mouth daily SIMVASTATIN 88919326726 No Longer Active Ian Valdez MD Active PREDNISONE 20 MG TAB 2 tabs daily for 3 days, 1 tab daily for 3 days, 1/2 tab daily for 2 days PREDNISONE 90941149058 No Longer Active Ian Valdez MD Active ZITHROMAX 250 MG TAB 2 po today, then 1 po q days 2-5 AZITHROMYCIN 53032415488 No Longer Active aIn Valdez MD Active TRAZODONE HCL 100 MG TABS 2 TABS PO Q HS TRAZODONE HCL 73679592648 Active Ian Valdez MD Active ZITHROMAX 250 MG TAB 2 po today, then 1 po q days 2-5 AZITHROMYCIN 74183596846 No Longer Active Ian Valdez MD Active SIMVASTATIN 80 MG TABS Take one by mouth daily SIMVASTATIN 80 MG TABS 147396 SIMVASTATIN Inactive AURALGAN 1.4-5.5 % SOLN AURALGAN 1.4-5.5 % SOLN BENZOCAINE-ANTIPYRINE Inactive ZITHROMAX 1 GM PACK DIRECTED ZITHROMAX 1 GM PACK 319069 AZITHROMYCIN Inactive CHANTIX STARTING MONTH REBEKAH 0.5 MG X 11 & 1 MG X 42 TABS 0.5mg daily for 3 days , then 0.5mg BID for 4 days, then 1mg BID CHANTIX STARTING MONTH REBEKAH 0.5 MG X 11 & 1 MG X 42 TABS VARENICLINE TARTRATE Inactive ZITHROMAX 1 GM PACK DIRECTED ZITHROMAX 1 GM PACK 804330 AZITHROMYCIN Inactive MOBIC 7.5 MG TABS 1 tablet by mouthonce a day MOBIC 7.5 MG TABS 461091 MELOXICAM Inactive KLONOPIN 0.5 MG TABS 1 TABLET PO PRN KLONOPIN 0.5 MG TABS 320435 CLONAZEPAM Inactive CIPRO 500 MG TAB 1 tablet by mouth twice daily CIPRO 500 MG TAB 108985 CIPROFLOXACIN HCL Inactive AZITHROMYCIN 500 MG TABS 1 PO q day x 6 days AZITHROMYCIN 500 MG TABS 3679598 AZITHROMYCIN Inactive CYCLOBENZAPRINE HCL 10 MG TABS 1 PO q 8 hrs PRN muscle spasm 2012 CYCLOBENZAPRINE HCL 10 MG TABS 576323 CYCLOBENZAPRINE HCL Inactive METFORMIN HCL 500 MG [...] bid prn anxiety. XANAX 0.25 MG TABS 230518 ALPRAZOLAM Inactive LAMISIL AT 1 % CREA apply bid to rash LAMISIL AT 1 % CREA 038394 TERBINAFINE HCL Inactive TOPAMAX 25 MG TABS 1 tab po qhs x 1 week, then take 2 tabs po qhs TOPAMAX 25 MG TABS 292676 TOPIRAMATE Inactive TERBINAFINE HCL 1 % CREA Apply bid to rash TERBINAFINE HCL 1 % CREA 007357 TERBINAFINE HCL Inactive ZITHROMAX 250 MG TAB 2 po today, then 1 po q days 2-5 ZITHROMAX 250 MG TAB 3781106 AZITHROMYCIN Inactive ZITHROMAX 250 MG TAB 2 po today, then 1 po q days 2-5 ZITHROMAX 250 MG TAB 5486525 AZITHROMYCIN Inactive PREDNISONE 20 MG TAB 2 tabs daily for 3 days, 1 tab daily for 3 days, 1/2 tab daily for 2 days PREDNISONE 20 MG TAB 874446 PREDNISONE Inactive PREDNISONE 20 MG TAB 3 tabs daily for 3 days, 2 tab daily for 3 days, 1 tab daily for 2 days, then 1/2 tab dialy for 2 days PREDNISONE 20 MG TAB 376805 PREDNISONE Inactive OMEPRAZOLE 20 MG CPDR 1 tablet by mouth daily OMEPRAZOLE 20 MG CPDR 536101 OMEPRAZOLE Inactive PREDNISONE 20 MG TABS 3 qd x 2d, 2 qd x 2d, 1 qd x 2d, 1/2 qd x 2d PREDNISONE 20 MG TABS 892187 PREDNISONE Inactive TERBINAFINE HCL 250 MG TABS 1 qDay TERBINAFINE HCL 250 MG TABS 524317 TERBINAFINE HCL Inactive Advance Directives Directive Description Start Date NO HEROIC MEASURES Immunizations Vaccine Administration Date Value Standard Description Boostrix (Tetanus toxoid, reduced diphtheria toxoid and acellular pertussis vaccine, adsorbed), booster Boostrix [[id number]] tetanus toxoid, reduced diphtheria toxoid, and acellular [...] 5.3 % 4.3-6.0 sodium, serum 139 mmol/L 432-291 6217/02/24 potassium, serum 4.4 mmol/L 3.5-5.2 chloride, serum [...] 1.44 m[iU]/mL 0.36-3.74 cholesterol, serum 144 mg/dL 279-706 7872/11/19 triglyceride, serum, fasting 172 mg/dL 30-200 HDL cholesterol, serum 30 mg/dL 32-96 LDL cholesterol, serum 80 mg/dL 0-130 sodium, serum 137 mmol/L 309-620 2442/11/19 potassium, serum 4.1 mmol/L 3.5-5.2 chloride, serum [...] Panel - Chemistry cholesterol, serum 118 mg/dL 065-832 8503/02/24 triglyceride, serum, fasting 141 mg/dL 30-200 HDL [...] mg/dL Encounters Code Encounter Date Provider Facility CPT-70806 Level 3 Est. Patient 15:50:27 HISTOLOGY TEACHER Najma Vaughn SAMI [facility] CPT-34791 Level 4 Est. Patient 21:20:00 HISTOLOGY TEACHER Ian Valdez MD [facility] CPT-84129 Level 3 Est. Patient 15:32:41 HISTOLOGY TEACHER Juan Smith MD [facility] CPT-92857 Level 3 Est. Patient 14:45:01 CDT Eva Ferrara MD PhD [facility] CPT-97389 Level 3 Est. Patient 14:54:10 CDT Ian Valdez MD [facility] CPT-18644 Level 4 Est. Patient 20:36:52 CDT Ian Valdez MD [facility] CPT-93733 Level 4 Est. Patient 11:14:30 HISTOLOGY TEACHER Ian Valdez MD [facility] CPT-04081 Level 3 Est. Patient 19:08:34 HISTOLOGY TEACHER Ian Valdez MD [facility] CPT-59255 Level 3 Est. Patient 13:17:39 HISTOLOGY TEACHER Ian Valdez MD [facility] CPT-96862 Level 4 Est. Patient 18:56:10 CDT Ian Valdez MD [facility] CPT-18471 Level 4 Est. Patient 16:55:56 CDT Ian Valdez MD [facility] CPT-33113 Level 3 Est. Patient 11:27:07 CDT Ian Valdez MD [facility] CPT-20149 Level 3 Est. Patient 15:17:44 CDT Law FIGUEROA [facility] CPT-10871 Level 4 Est. Patient 15:13:53 CDT [place] FIGUEROA [facility] CPT-63245 Level 3 Est. Patient 14:25:12 HISTOLOGY TEACHER Ian Valdez MD [facility] CPT-99299 Level 3 Est. Patient 10:24:46 CDT Ian Valdez MD [facility] CPT-47902 Level 3 Est. Patient 15:34:19 CDT Ian Valdez MD [facility] CPT-85784 Level 3 Est. Patient 14:22:41 CDT Ian Valdez MD [facility] CPT-74751 Level 3 Est. Patient 15:07:22 HISTOLOGY TEACHER Ian Valdez MD [facility] CPT-78834 Level 3 New Patient 09:06:43 HISTOLOGY TEACHER Ian Valdez MD [facility] CPT-87946 Level 3 Est. Patient 15:09:00 HISTOLOGY TEACHER Ian Valdez MD [facility] Procedures Code Procedure Name Date Entry Date Standard Description CPT-OV Office Visit 15:49:26 HISTOLOGY TEACHER CPT-J1885 Toradol 60 mg (Ketorolac) 15:37:32 CDT CPT-96429 Abx/Therapy Injection 15:37:32 CDT CPT-J1885 Toradol 60 mg (Ketorolac) 14:45:01 CDT CPT-OV Office Visit 15:19:52 CDT CPT-OV Office Visit 10:41:01 CDT CPT-78835 Core biop breast wo imaging 16:50:06 CDT CPT-OV Office Visit 16:50:05 CDT CPT-00056 UHCG (floor use only) 13:39:36 CDT CPT-76664 Nexplanon Placement 10:11:48 CDT CPT-J7307 Nexplanon (Implant) 10:11:48 CDT CPT-OV Office Visit 09:54:18 CDT CPT-29187 EKG Trac and Interp 16:50:19 CDT CPT-43955 Venipuncture Draw Fee 15:06:08 CDT CPT-J2930 Solu Medrol 125 mg (Methyl Prednisolone Sodium Succinate) 12:44:46 CDT CPT-J1055 Depo Provera 150 mg (Medroxyprogesterone) 12:44:46 CDT CPT-04016 Abx/Therapy Injection 12:44:46 CDT CPT-J1055 Depo Provera 150 mg (Medroxyprogesterone) 14:28:41 CDT CPT-J2930 Solu Medrol 125 mg (Methyl Prednisolone Sodium Succinate) 14:22:41 CDT CPT-60531 Administration single or combination vaccine inc oral 10 :08:06 CDT CPT-82809 Tdap 10:08:06 CDT CPT-G0402 Wlcm To Medicare Ex 22:17:30 CDT CPT-19742 Venipuncture Draw Fee 10:33:07 HISTOLOGY TEACHER CPT-69347 Venipuncture Draw Fee 10:17:37 HISTOLOGY TEACHER CPT-G0403 EKG Wlc To Medicare 22:17:30 CDT
--- OUTSIDE RECORDS SUMMARY | 2018-07-17 22:04 | XMS REPORT ---
Author Author [facility] Medical Staff Organization [facility] Address [address] [place] [id number] Phone [phone] Care Team Providers Care Stock Turner Name Role Phone JOSSIE RFANCIS, FARHAD PP [phone] Summary purpose TRANSITION OF CARE AUTO GENERATION Chief Complaint and Reason for Visit Admit Diagnosis 1 JOINT PAIN-L/LEG Problem list No authorized problems tracked for [...] Code Type Description Date Performed Performing Physician J1100 CPT-4 DEXAMETHASONE SODIUM PHOS 12-31-2013 TD MURRAY J2360 CPT-4 ORPHENADRINE INJECTION 12-31-2013 TD MURRAY A9270 CPT-4 NON-COVERED ITEM OR SERVICE 12-31-2013 TD MURRAY 63240 CPT-4 EMERGENCY DEPT VISIT 12-31-2013 TD MURRAY 44847 CPT-4 EMERGENCY DEPT VISIT 12-31-2013 TD TERRI 63010 CPT-4 THER/PROPH/DIAG INJ, SC/IM 12-31-2013 TD TERRI Functional status No functional or cognitive status observations are available for this visit. Vital signs Type Value Date Respiration Rate 18breaths per minute :05 Pulse 92beats per minute :05 Oxygen Saturation 97% :05 BP Systolic 126mmHg [id number]:05 BP Diastolic 66mmHg 49-03-013462:05 Temperature 98.3F :05 Social history Type Value Smoking Status CURRENT EVERY DAY SMOKER Treatment Plan No treatment plan text is available for this visit. Hospital discharge instructions Dismissal Condition good Disposition on DC home DC Inst/Educ Give yes Med/Side Effects Rev yes
--- OUTSIDE RECORDS SUMMARY | 2018-07-17 22:05 | XMS REPORT | Clinical Summary ---
[...] daily if needed for spasms/pain CYCLOBENZAPRINE HCL 01242264211 Active Eva Ferrara MD PhD Active GLUCOPHAGE 500 MG TABS 1 tab BID with morning and night meals METFORMIN HCL 49927668814 Active Eva Ferrara MD PhD Active PROGESTERONE MICRONIZED 100 MG CAPS 2 caps daily day 16 thru 25 of cycle 2013 PROGESTERONE MICRONIZED 77778731087 Active Eva Ferrara MD PhD Active TERBINAFINE HCL 1 % CREA Apply bid to rash TERBINAFINE HCL 19693797651 No Longer Active Eva Ferrara MD PhD Active TOPAMAX 25 MG TABS 1 tab po qhs x 1 week, then take 2 tabs po qhs TOPIRAMATE 09311400074 No Longer Active Thom Gilbert MD Active ULTRAM 50 MG TAB take 1 tab po q6hrs prn pain TRAMADOL HCL 87422253174 Active Ian Valdez MD Active LAMISIL AT 1 % CREA apply bid to rash TERBINAFINE HCL 35669417279 No Longer Active Thom Gilbert MD Active TERBINAFINE HCL 250 MG TABS 1 qDay TERBINAFINE HCL 17079158299 No Longer Active Ian Valdez MD Active XANAX 0.25 MG TABS take 1 tab po bid prn anxiety. ALPRAZOLAM 84658506662 No Longer Active Ian Valdez MD Active FISH OIL 1000 MG CAPS 2 caps PO once daily at bedtime OMEGA-3 FATTY ACIDS 73120608743 No Longer Active Ian Valdez MD Active KLOR-CON M20 20 MEQ CR-TABS take 1 tab po qday with lasix POTASSIUM CHLORIDE GALILEO CR 32531379108 Active Ian Valdez MD Active LASIX 20 MG TAB 1 tablet by mouth daily prn swelling FUROSEMIDE 36252230284 Active Ian Valdez MD Active FLONASE 50 MCG/ACT SUSP 2 puffs in each nostril once daily at bedtime FLUTICASONE PROPIONATE 70768924792 Active Ian Valdez MD Active CVS MELATONIN 3 MG TABS 2 tabs PO at bedtime MELATONIN 83508877033 Active Ian Valdez MD Active PULMICORT FLEXHALER 180 MCG/ACT AEPB 2 INH BID BUDESONIDE 07055131047 No Longer Active Ian Valdez MD Active METFORMIN HCL 500 MG TB24 1 TAB PO Q HS METFORMIN HCL 94044438452 No Longer Active Ian Valdez MD Active CYCLOBENZAPRINE HCL 10 MG TABS 1 PO q 8 hrs PRN muscle spasm 2012 CYCLOBENZAPRINE HCL 98544926464 No Longer Active Ian Valdez MD Active AZITHROMYCIN 500 MG TABS 1 PO q day x 6 days AZITHROMYCIN 56736181713 No Longer Active Ian Valdez MD Active CIPRO 500 MG TAB 1 tablet by mouth twice daily CIPROFLOXACIN HCL 35459225746 No Longer Active Ian Valdez MD Active PREDNISONE 20 MG TABS 3 qd x 2d, 2 qd x 2d, 1 qd x 2d, 1/2 qd x 2d PREDNISONE 83929381254 No Longer Active Law FIGUEROA Active CELEXA 40 MG TABS 2 PO DAILY CITALOPRAM HYDROBROMIDE 86190911722 Active Ian Valdez MD Active OMEPRAZOLE 20 MG CPDR 1 tablet by mouth daily OMEPRAZOLE 98438950372 No Longer Active Wellington FIGUEROA Active KLONOPIN 0.5 MG TABS 1 TABLET PO PRN CLONAZEPAM 71756803607 No Longer Active [place] FIGUREOA Active MOBIC 7.5 MG TABS 1 tablet by mouthonce a day MELOXICAM 51616732759 No Longer Active [place] FIGUEROA Active ZITHROMAX 1 GM PACK DIRECTED AZITHROMYCIN 92239319993 No Longer Active Ian Valdez MD Active ALBUTEROL SULFATE 0.083 % NEBU SOLJeanette one vial per nebulizer every 4-6 hours as needed ALBUTEROL SULFATE 89126621446 Active Ian Valdez MD Active CHANTIX STARTING MONTH REBEKAH 0.5 MG X 11 & 1 MG X 42 TABS 0.5mg daily for 3 days , then 0.5mg BID for 4 days, then 1mg BID VARENICLINE TARTRATE 29113576905 No Longer Active Ian Valdez MD Active ZITHROMAX 1 GM PACK DIRECTED AZITHROMYCIN 23590059958 No Longer Active Ian Valdez MD Active AURALGAN 1.4-5.5 % SOLN BENZOCAINE-ANTIPYRINE 59401603358 No Longer Active Ian Valdez MD Active PREDNISONE 20 MG TAB 3 tabs daily for 3 days, 2 tab daily for 3 days, 1 tab daily for 2 days, then 1/2 tab dialy for 2 days PREDNISONE 39254433488 No Longer Active Ian Valdez MD Active SIMVASTATIN 40 MG TABS 1 TABLET PO Q HS SIMVASTATIN 61462041982 Active Ian Valdez MD Active SIMVASTATIN 80 MG TABS Take one by mouth daily SIMVASTATIN 46450708178 No Longer Active Ian Valdez MD Active PREDNISONE 20 MG TAB 2 tabs daily for 3 days, 1 tab daily for 3 days, 1/2 tab daily for 2 days PREDNISONE 92250745536 No Longer Active Ian Valdez MD Active ZITHROMAX 250 MG TAB 2 po today, then 1 po q days 2-5 AZITHROMYCIN 54231809757 No Longer Active Ian Valdez MD Active TRAZODONE HCL 100 MG TABS 2 TABS PO Q HS TRAZODONE HCL 02418900779 Active Ian Valdez MD Active ZITHROMAX 250 MG TAB 2 po today, then 1 po q days 2-5 AZITHROMYCIN 00867583681 No Longer Active Ian Valdez MD Active SIMVASTATIN 80 MG TABS Take one by mouth daily SIMVASTATIN 80 MG TABS 157823 SIMVASTATIN Inactive AURALGAN 1.4-5.5 % SOLN AURALGAN 1.4-5.5 % SOLN BENZOCAINE-ANTIPYRINE Inactive ZITHROMAX 1 GM PACK DIRECTED ZITHROMAX 1 GM PACK 483954 AZITHROMYCIN Inactive CHANTIX STARTING MONTH REBEKAH 0.5 MG X 11 & 1 MG X 42 TABS 0.5mg daily for 3 days , then 0.5mg BID for 4 days, then 1mg BID CHANTIX STARTING MONTH REBEKAH 0.5 MG X 11 & 1 MG X 42 TABS VARENICLINE TARTRATE Inactive ZITHROMAX 1 GM PACK DIRECTED ZITHROMAX 1 GM PACK 157340 AZITHROMYCIN Inactive MOBIC 7.5 MG TABS 1 tablet by mouthonce a day MOBIC 7.5 MG TABS 709973 MELOXICAM Inactive KLONOPIN 0.5 MG TABS 1 TABLET PO PRN KLONOPIN 0.5 MG TABS 312028 CLONAZEPAM Inactive CIPRO 500 MG TAB 1 tablet by mouth twice daily CIPRO 500 MG TAB 633762 CIPROFLOXACIN HCL Inactive AZITHROMYCIN 500 MG TABS 1 PO q day x 6 days AZITHROMYCIN 500 MG TABS 6549887 AZITHROMYCIN Inactive CYCLOBENZAPRINE HCL 10 MG TABS 1 PO q 8 hrs PRN muscle spasm 2012 CYCLOBENZAPRINE HCL 10 MG TABS 611472 CYCLOBENZAPRINE HCL Inactive METFORMIN HCL 500 MG [...] bid prn anxiety. XANAX 0.25 MG TABS 480164 ALPRAZOLAM Inactive LAMISIL AT 1 % CREA apply bid to rash LAMISIL AT 1 % CREA 934652 TERBINAFINE HCL Inactive TOPAMAX 25 MG TABS 1 tab po qhs x 1 week, then take 2 tabs po qhs TOPAMAX 25 MG TABS 939317 TOPIRAMATE Inactive TERBINAFINE HCL 1 % CREA Apply bid to rash TERBINAFINE HCL 1 % CREA 820179 TERBINAFINE HCL Inactive ZITHROMAX 250 MG TAB 2 po today, then 1 po q days 2-5 ZITHROMAX 250 MG TAB 0483792 AZITHROMYCIN Inactive ZITHROMAX 250 MG TAB 2 po today, then 1 po q days 2-5 ZITHROMAX 250 MG TAB 5125857 AZITHROMYCIN Inactive PREDNISONE 20 MG TAB 2 tabs daily for 3 days, 1 tab daily for 3 days, 1/2 tab daily for 2 days PREDNISONE 20 MG TAB 530723 PREDNISONE Inactive PREDNISONE 20 MG TAB 3 tabs daily for 3 days, 2 tab daily for 3 days, 1 tab daily for 2 days, then 1/2 tab dialy for 2 days PREDNISONE 20 MG TAB 822541 PREDNISONE Inactive OMEPRAZOLE 20 MG CPDR 1 tablet by mouth daily OMEPRAZOLE 20 MG CPDR 110632 OMEPRAZOLE Inactive PREDNISONE 20 MG TABS 3 qd x 2d, 2 qd x 2d, 1 qd x 2d, 1/2 qd x 2d PREDNISONE 20 MG TABS 382083 PREDNISONE Inactive TERBINAFINE HCL 250 MG TABS 1 qDay TERBINAFINE HCL 250 MG TABS 888983 TERBINAFINE HCL Inactive Advance Directives Directive Description Start Date NO HEROIC MEASURES Immunizations Vaccine Administration Date Value Standard Description Combined Fmugbjmwza-Vezjpou-mybndhcvw Pertussis (dTpa) Vaccine - Booster 07/05 Boostrix [[id number]] tetanus toxoid, reduced diphtheria toxoid, and acellular [...] 5.3 % 4.3-6.0 sodium, serum 139 mmol/L 381-176 1911/02/24 potassium, serum 4.4 mmol/L 3.5-5.2 chloride, serum [...] Comp. Metabolic Panel - Hematology mean corpuscular hemoglobin, RBC 30.7 pg 27.0-31.2 mean corpuscular hemoglobin concentration, RBC 33.8 G/DL % 31.8- 35.4 red blood cell distribution width 13.6 % 11.6-14.8 platelet count 364 10^3/MM^3 10*3/mm3 954-003 7262/02/24 mean corpuscular volume, RBC 91 fL 80-97 hematocrit, blood 46.3 % 36.0-46.0 hemoglobin, blood 15.6 g/dL 12.0-16.0 erythrocyte (RBC) count 5.09 10^6/MM^3 10*6/mm3 4.04-5.48 leukocyte count, blood 8.4 10^3/MM^3 10*3/mm3 4.6-10.2 Lab Report: Lipid Panel - Chemistry cholesterol, serum 118 mg/dL 746-248 6134/02/24 triglyceride, serum, fasting 141 mg/dL 30-200 HDL cholesterol, serum 20 mg/dL 32-96 LDL cholesterol, serum 70 mg/dL 0-130 Office Visit: Consult infertility - Chemistry human chorionic gonadotropin, urine, qualitative (urine test) Negative Encounters Code Encounter Date Provider Facility CPT-45149 Level 3 Est. Patient 14:45:01 CDT Eva Ferrara MD PhD [facility] CPT-33267 Level 3 Est. Patient 14:54:10 CDT Ian Valdez MD [facility] CPT-24098 Level 4 Est. Patient 20:36:52 CDT Ian Valdez MD [facility]-21995 Level 4 Est. Patient 11:14:30 ROPE MACHINE SETTER Ian Valdez MD [facility]-64379 Level 3 Est. Patient 19:08:34 ROPE MACHINE SETTER Ian Valdez MD [facility]-17629 Level 3 Est. Patient 13:17:39 ROPE MACHINE SETTER Ian Valdez MD [facility]-15626 Level 4 Est. Patient 18:56:10 CDT Ian Valdez MD [facility]-40320 Level 4 Est. Patient 16:55:56 CDT Ian Valdez MD [facility]-97185 Level 3 Est. Patient 11:27:07 CDT Ian Valdze MD [facility] CPT-75570 Level 3 Est. Patient 15:17:44 CDT Law Rosas [facility] CPT-23135 Level 4 Est. Patient 15:13:53 CDT Wellington Muniz [facility] CPT-92898 Level 3 Est. Patient 14:25:12 ROPE MACHINE SETTER Ian Valdez MD [facility]-19453 Level 3 Est. Patient 10:24:46 CDT Ian Valdez MD [facility]-23088 Level 3 Est. Patient 15:34:19 CDT Ian Valdez MD [facility]-87696 Level 3 Est. Patient 14:22:41 CDT Ian Valdez MD [facility]-30194 Level 3 Est. Patient 15:07:22 ROPE MACHINE SETTER Ian Valdez MD [facility] CPT-11175 Level 3 New Patient 09:06:43 ROPE MACHINE SETTER Ian Valdez MD [facility] CPT-21172 Level 3 Est. Patient 15:09:00 ROPE MACHINE SETTER Ian Valdez MD [facility] Procedures Code Procedure Name Date Entry Date Standard Description CPT-J1885 Toradol 60 mg (Ketorolac) 14:45:01 CDT CPT-OV Office Visit 15:19:52 CDT CPT-OV Office Visit 10:41:01 CDT CPT-06647 Core biop breast wo imaging 16:50:06 CDT CPT-OV Office Visit 16:50:05 CDT CPT-43025 UHCG (floor use only) 13:39:36 CDT CPT-22395 Nexplanon Placement 10:11:48 CDT CPT-J7307 Nexplanon (Implant) 10:11:48 CDT CPT-OV Office Visit 09:54:18 CDT CPT-74979 EKG Trac and Interp 16:50:19 CDT CPT-63970 Venipuncture Draw Fee 15:06:08 CDT CPT-J2930 Solu Medrol 125 mg (Methyl Prednisolone Sodium Succinate) 12:44:46 CDT CPT-J1055 Depo Provera 150 mg (Medroxyprogesterone) 12:44:46 CDT CPT-23228 Abx/Therapy Injection 12:44:46 CDT CPT-J1055 Depo Provera 150 mg (Medroxyprogesterone) 14:28:41 CDT CPT-J2930 Solu Medrol 125 mg (Methyl Prednisolone Sodium Succinate) 14:22:41 CDT CPT-61634 Administration single or combination vaccine inc oral 10 :08:06 CDT CPT-58868 Tdap 10:08:06 CDT CPT-G0402 Wl To Medicare Ex 22:17:30 CDT CPT-60659 Venipuncture Draw Fee 10:33:07 ROPE MACHINE SETTER CPT-01374 Venipuncture Draw Fee 10:17:37 ROPE MACHINE SETTER CPT-G0403 EKG Wl To Medicare 22:17:30 CDT
[2018-07-17 22:06] LABS: BAND NEUTROPHILS 0 %; BASOPHILS % (MANUAL) 0 %; EOSINOPHILS % (MANUAL) 5 %; LYMPHOCYTES % (MANUAL) 48 %; MONOCYTES % (MANUAL) 4 %; NEUTROPHILS % (MANUAL) 43 %; RBC MORPH NORMAL
--- OUTSIDE RECORDS SUMMARY | 2018-07-17 22:06 | XMS REPORT ---
Author Author [facility] Medical Staff Organization [facility] Address [address] [place], [place] [address] Phone [phone] Care Team Providers Care Chemical Radiation Technician Name Role Phone FARHAD SETHI MD PP [phone] Summary purpose TRANSITION OF CARE AUTO GENERATION Chief Complaint and Reason for Visit Admit Diagnosis 1 IRREGULAR MENSTRUATION Problem list No authorized problems tracked for [...] Relevant diagnostic tests and/or laboratory data RESULTS Reference Lab (Sendout) [id number]:20:00 Result Normal Range Units Progesterone 3.2 ng/mL Reference Ranges Female Follicular Phase < 1.0 Luteal Phase2.6-21.5 Post menopausal< 0.5 1st Trimester 4.1-34.0 2nd Qckioprwy74.0-76.0 3rd Trimester 52.0-302.0 TEST PERFORMED AT: [facility] [address] [place] [address] GRACAI COREY DO,MPH History of procedures Procedure Code Code Type Description Date Performed Performing Physician 03775 CPT-4 ASSAY OF PROGESTERONE 03-16-2014 ANNIA GARCIA Functional status No functional or cognitive status [...]
--- OUTSIDE RECORDS SUMMARY | 2018-07-17 22:06 | XMS REPORT | Clinical Summary ---
Author Author Admin, ARIAN Organization [facility] Address Unknown Phone Unavailable Allergies, Adverse [...] then take 2 tabs po qhs TOPIRAMATE 48738759688 No Longer Active Thom Gilbert MD Active ULTRAM 50 MG TAB take 1 tab po q6hrs prn pain TRAMADOL HCL 00349400692 Active Ian Valdez MD Active LAMISIL AT 1 % CREA apply bid to rash TERBINAFINE HCL 38343657403 No Longer Active Thom Gilbert MD Active TERBINAFINE HCL 250 MG TABS 1 qDay TERBINAFINE HCL 70403342490 No Longer Active Ian Valdez MD Active XANAX 0.25 MG TABS take 1 tab po bid prn anxiety. ALPRAZOLAM 46286015000 No Longer Active Ian Valdez MD Active FISH OIL 1000 MG CAPS 2 caps PO once daily at bedtime OMEGA-3 FATTY ACIDS 77384420960 No Longer Active Ian Valdez MD Active KLOR-CON M20 20 MEQ CR-TABS take 1 tab po qday with lasix POTASSIUM CHLORIDE GALILEO CR 78800681809 Active Ian Valdez MD Active LASIX 20 MG TAB 1 tablet by mouth daily prn swelling FUROSEMIDE 27091706666 Active Ian Valdez MD Active FLONASE 50 MCG/ACT SUSP 2 puffs in each nostril once daily at bedtime FLUTICASONE PROPIONATE 52576919909 Active Ian Valdez MD Active CVS MELATONIN 3 MG TABS 2 tabs PO at bedtime MELATONIN 69168821301 Active Ian Valdez MD Active PULMICORT FLEXHALER 180 MCG/ACT AEPB 2 INH BID BUDESONIDE 94959238148 No Longer Active Ian Valdez MD Active METFORMIN HCL 500 MG TB24 1 TAB PO Q HS METFORMIN HCL 64796461434 No Longer Active Ian Valdez MD Active CYCLOBENZAPRINE HCL 10 MG TABS 1 PO q 8 hrs PRN muscle spasm 2012 CYCLOBENZAPRINE HCL 45349187293 No Longer Active Ian Valdez MD Active AZITHROMYCIN 500 MG TABS 1 PO q day x 6 days AZITHROMYCIN 54935740496 No Longer Active Ian Valdez MD Active CIPRO 500 MG TAB 1 tablet by mouth twice daily CIPROFLOXACIN HCL 16217975208 No Longer Active Ian Valdez MD Active PREDNISONE 20 MG TABS 3 qd x 2d, 2 qd x 2d, 1 qd x 2d, 1/2 qd x 2d PREDNISONE 41184272550 No Longer Active Law FIGUEROA Active CELEXA 40 MG TABS 2 PO DAILY CITALOPRAM HYDROBROMIDE 28109715529 Active Ina Valdez MD Active OMEPRAZOLE 20 MG CPDR 1 tablet by mouth daily OMEPRAZOLE 15143920250 No Longer Active [place] FIGUEROA Active KLONOPIN 0.5 MG TABS 1 TABLET PO PRN CLONAZEPAM 69660686458 No Longer Active [place] FIGUEROA Active MOBIC 7.5 MG TABS 1 tablet by mouthonce a day MELOXICAM 38985811031 No Longer Active [place] FIGUEROA Active ZITHROMAX 1 GM PACK DIRECTED AZITHROMYCIN 23365525237 No Longer Active Ian Valdez MD Active ALBUTEROL SULFATE 0.083 % NEBU SOLN one vial per nebulizer every 4-6 hours as needed ALBUTEROL SULFATE 69062869973 Active Ian Valdez MD Active CHANTIX STARTING MONTH REBEKAH 0.5 MG X 11 & 1 MG X 42 TABS 0.5mg daily for 3 days , then 0.5mg BID for 4 days, then 1mg BID VARENICLINE TARTRATE 62830330933 No Longer Active Ian Valdez MD Active ZITHROMAX 1 GM PACK DIRECTED AZITHROMYCIN 99170665732 No Longer Active Ian Valdez MD Active AURALGAN 1.4-5.5 % SOLN BENZOCAINE-ANTIPYRINE 72518069805 No Longer Active Ian Valdez MD Active PREDNISONE 20 MG TAB 3 tabs daily for 3 days, 2 tab daily for 3 days, 1 tab daily for 2 days, then 1/2 tab dialy for 2 days PREDNISONE 35578200613 No Longer Active Ian Valdez MD Active SIMVASTATIN 40 MG TABS 1 TABLET PO Q HS SIMVASTATIN 92289815007 Active Ian Valdez MD Active SIMVASTATIN 80 MG TABS Take one by mouth daily SIMVASTATIN 82968740921 No Longer Active Ian Valdez MD Active PREDNISONE 20 MG TAB 2 tabs daily for 3 days, 1 tab daily for 3 days, 1/2 tab daily for 2 days PREDNISONE 72396434631 No Longer Active Ian Valdez MD Active ZITHROMAX 250 MG TAB 2 po today, then 1 po q days 2-5 AZITHROMYCIN 91409792361 No Longer Active Ian Valdez MD Active TRAZODONE HCL 100 MG TABS 2 TABS PO Q HS TRAZODONE HCL 00984475993 Active Ian Valdez MD Active ZITHROMAX 250 MG TAB 2 po today, then 1 po q days 2-5 AZITHROMYCIN 99024381082 No Longer Active Ian Valdez MD Active SIMVASTATIN 80 MG TABS Take one by mouth daily SIMVASTATIN 80 MG TABS 247476 SIMVASTATIN Inactive AURALGAN 1.4-5.5 % SOLN AURALGAN 1.4-5.5 % SOLN BENZOCAINE-ANTIPYRINE Inactive ZITHROMAX 1 GM PACK DIRECTED ZITHROMAX 1 GM PACK 278496 AZITHROMYCIN Inactive CHANTIX STARTING MONTH REBEKAH 0.5 MG X 11 & 1 MG X 42 TABS 0.5mg daily for 3 days , then 0.5mg BID for 4 days, then 1mg BID CHANTIX STARTING MONTH REBEKAH 0.5 MG X 11 & 1 MG X 42 TABS VARENICLINE TARTRATE Inactive ZITHROMAX 1 GM PACK DIRECTED ZITHROMAX 1 GM PACK 773479 AZITHROMYCIN Inactive MOBIC 7.5 MG TABS 1 tablet by mouthonce a day MOBIC 7.5 MG TABS 854127 MELOXICAM Inactive KLONOPIN 0.5 MG TABS 1 TABLET PO PRN KLONOPIN 0.5 MG TABS 612532 CLONAZEPAM Inactive CIPRO 500 MG TAB 1 tablet by mouth twice daily CIPRO 500 MG TAB 853637 CIPROFLOXACIN HCL Inactive AZITHROMYCIN 500 MG TABS 1 PO q day x 6 days AZITHROMYCIN 500 MG TABS 7722759 AZITHROMYCIN Inactive CYCLOBENZAPRINE HCL 10 MG TABS 1 PO q 8 hrs PRN muscle spasm 2012 CYCLOBENZAPRINE HCL 10 MG TABS 165040 CYCLOBENZAPRINE HCL Inactive METFORMIN HCL 500 MG [...] bid prn anxiety. XANAX 0.25 MG TABS 268194 ALPRAZOLAM Inactive LAMISIL AT 1 % CREA apply bid to rash LAMISIL AT 1 % CREA 554124 TERBINAFINE HCL Inactive TOPAMAX 25 MG TABS 1 tab po qhs x 1 week, then take 2 tabs po qhs TOPAMAX 25 MG TABS 122269 TOPIRAMATE Inactive ZITHROMAX 250 MG TAB 2 po today, then 1 po q days 2-5 ZITHROMAX 250 MG TAB 3298136 AZITHROMYCIN Inactive ZITHROMAX 250 MG TAB 2 po today, then 1 po q days 2-5 ZITHROMAX 250 MG TAB 1503491 AZITHROMYCIN Inactive PREDNISONE 20 MG TAB 2 tabs daily for 3 days, 1 tab daily for 3 days, 1/2 tab daily for 2 days PREDNISONE 20 MG TAB 381689 PREDNISONE Inactive PREDNISONE 20 MG TAB 3 tabs daily for 3 days, 2 tab daily for 3 days, 1 tab daily for 2 days, then 1/2 tab dialy for 2 days PREDNISONE 20 MG TAB 614812 PREDNISONE Inactive OMEPRAZOLE 20 MG CPDR 1 tablet by mouth daily OMEPRAZOLE 20 MG CPDR 187347 OMEPRAZOLE Inactive PREDNISONE 20 MG TABS 3 qd x 2d, 2 qd x 2d, 1 qd x 2d, 1/2 qd x 2d PREDNISONE 20 MG TABS 337649 PREDNISONE Inactive TERBINAFINE HCL 250 MG TABS 1 qDay TERBINAFINE HCL 250 MG TABS 140362 TERBINAFINE HCL Inactive Advance Directives Directive Description Start Date NO HEROIC MEASURES Immunizations Vaccine Administration Date Value Standard Description Boostrix (Tetanus toxoid, reduced diphtheria toxoid and acellular pertussis vaccine, adsorbed), booster Boostrix [[id number]] tetanus toxoid, reduced diphtheria toxoid, and acellular [...] 5.3 % 4.3-6.0 sodium, serum 139 mmol/L 718-363 1815/02/24 potassium, serum 4.4 mmol/L 3.5-5.2 chloride, serum [...] Panel - Chemistry cholesterol, serum 118 mg/dL 614-301 2686/02/24 triglyceride, serum, fasting 141 mg/dL 30-200 HDL cholesterol, serum 20 mg/dL 32-96 LDL cholesterol, serum 70 mg/dL 0-130 Office Visit: Consult infertility - Chemistry human chorionic gonadotropin, urine, qualitative (urine test) Negative Encounters Code Encounter Date Provider Facility CPT-84489 Level 3 Est. Patient 14:54:10 CDT Ian Valdez MD [facility] CPT-87923 Level 4 Est. Patient 20:36:52 CDT Ian Valdez MD [facility] CPT-27454 Level 4 Est. Patient 11:14:30 ELECTRICIAN SHIP Ian Valdez MD [facility]-34524 Level 3 Est. Patient 19:08:34 ELECTRICIAN SHIP Ian Valdez MD [facility]-30950 Level 3 Est. Patient 13:17:39 ELECTRICIAN SHIP Ian Valdez MD [facility]-81206 Level 4 Est. Patient 18:56:10 CDT Ian Valdez MD [facility]-91819 Level 4 Est. Patient 16:55:56 CDT Ian Valdez MD [facility]-50787 Level 3 Est. Patient 11:27:07 CDT Ian Valdez MD [facility]-99741 Level 3 Est. Patient 15:17:44 CDT Law Rosas [facility] CPT-11210 Level 4 Est. Patient 15:13:53 CDT Wellington Muniz [facility] CPT-06361 Level 3 Est. Patient 14:25:12 ELECTRICIAN SHIP Ian Valdez MD [facility]-50271 Level 3 Est. Patient 10:24:46 CDT Ian Valdez MD [facility]-73414 Level 3 Est. Patient 15:34:19 CDT Ian Valdez MD [facility]-09905 Level 3 Est. Patient 14:22:41 CDT Ian Valdez MD [facility]-08244 Level 3 Est. Patient 15:07:22 ELECTRICIAN SHIP Ian Valdez MD [facility] CPT-48552 Level 3 New Patient 09:06:43 ELECTRICIAN SHIP Ian Valdez MD [facility]-73427 Level 3 Est. Patient 15:09:00 ELECTRICIAN SHIP Ian Valdez MD [facility] Procedures Code Procedure Name Date Entry Date Standard Description CPT-OV Office Visit 15:19:52 CDT CPT-OV Office Visit 10:41:01 CDT CPT-75145 Core biop breast wo imaging 16:50:06 CDT CPT-OV Office Visit 16:50:05 CDT CPT-48684 UHCG (floor use only) 13:39:36 CDT CPT-69257 Nexplanon Placement 10:11:48 CDT CPT-J7307 Nexplanon (Implant) 10:11:48 CDT CPT-OV Office Visit 09:54:18 CDT CPT-84985 EKG Trac and Interp 16:50:19 CDT CPT-89832 Venipuncture Draw Fee 15:06:08 CDT CPT-J2930 Solu Medrol 125 mg (Methyl Prednisolone Sodium Succinate) 12:44:46 CDT CPT-J1055 Depo Provera 150 mg (Medroxyprogesterone) 12:44:46 CDT CPT-34692 Abx/Therapy Injection 12:44:46 CDT CPT-J1055 Depo Provera 150 mg (Medroxyprogesterone) 14:28:41 CDT CPT-J2930 Solu Medrol 125 mg (Methyl Prednisolone Sodium Succinate) 14:22:41 CDT CPT-29275 Administration single or combination vaccine inc oral 10 :08:06 CDT CPT-83013 Tdap 10:08:06 CDT CPT-G0402 Wlcm To Medicare Ex 22:17:30 CDT CPT-61483 Venipuncture Draw Fee 10:33:07 ELECTRICIAN SHIP CPT-04075 Venipuncture Draw Fee 10:17:37 ELECTRICIAN SHIP CPT-G0403 EKG Wlc To Medicare 22:17:30 CDT
--- OUTSIDE RECORDS SUMMARY | 2018-07-17 22:07 | XMS REPORT | Clinical Summary ---
Author Author Admin, ARIAN Organization [facility] Address Unknown Phone Unavailable Allergies, Adverse Reactions, Alerts Allergy Name Reaction Description Start Date Severity Status Provider LATEX GLOVES Critical Active Ian Valdez MD HALDOL Critical Active Ian Valdez MD PENICILLIN Critical Active Ian Valdez MD Conditions or Problems Problem Name Problem Code Onset Date Status Entry Date Provider Comment Standard Description Annotate SINUSITIS 473.9 Resolved Ina Valdez MD Unspecified sinusitis (chronic) SCABIES 133.0 [...] 787.20 Active Thom Gilbert MD Dysphagia, unspecified SCABIES ICD-133.0 Inactive Ian Valdez MD 2012 MEMORY LOSS ICD-780.93 Inactive Ian Valdez MD FAMILY HISTORY OF ALCOHOLISM ICD-V61.41 Inactive Ian Valdez MD DIABETES ICD-V18.0 Inactive Ian Valdez MD MEMORY [...] ABDOMINAL CRAMPS ICD-789.00 Inactive Ian Valdez MD SINUSITIS ICD-473.9 Inactive Ian Valdez MD BRONCHITIS, ACUTE ICD-466.0 [...] then take 2 tabs po qhs TOPIRAMATE 34798385527 No Longer Active Thom Gilbert MD Active ULTRAM 50 MG TAB take 1 tab po q6hrs prn pain TRAMADOL HCL 30418907309 Active Ian Valdez MD Active LAMISIL AT 1 % CREA apply bid to rash TERBINAFINE HCL 78070091704 No Longer Active Thom Gilbert MD Active TERBINAFINE HCL 250 MG TABS 1 qDay TERBINAFINE HCL 02700448142 No Longer Active Ian Valdez MD Active XANAX 0.25 MG TABS take 1 tab po bid prn anxiety. ALPRAZOLAM 73241703279 No Longer Active Ian Valdez MD Active FISH OIL 1000 MG CAPS 2 caps PO once daily at bedtime OMEGA-3 FATTY ACIDS 72424902656 No Longer Active Ian Valdez MD Active KLOR-CON M20 20 MEQ CR-TABS take 1 tab po qday with lasix POTASSIUM CHLORIDE GALILEO CR 50555292262 Active Ian Valdez MD Active LASIX 20 MG TAB 1 tablet by mouth daily prn swelling FUROSEMIDE 61341531787 Active Ian Valdez MD Active FLONASE 50 MCG/ACT SUSP 2 puffs in each nostril once daily at bedtime FLUTICASONE PROPIONATE 72174823585 Active Ian Valdez MD Active CVS MELATONIN 3 MG TABS 2 tabs PO at bedtime MELATONIN 88981688562 Active Ian Valdez MD Active PULMICORT FLEXHALER 180 MCG/ACT AEPB 2 INH BID BUDESONIDE 38705073860 No Longer Active Ian Valdez MD Active METFORMIN HCL 500 MG TB24 1 TAB PO Q HS METFORMIN HCL 63787770103 No Longer Active Ian Valdez MD Active CYCLOBENZAPRINE HCL 10 MG TABS 1 PO q 8 hrs PRN muscle spasm 2012 CYCLOBENZAPRINE HCL 23740405226 No Longer Active Ian Valdez MD Active AZITHROMYCIN 500 MG TABS 1 PO q day x 6 days AZITHROMYCIN 23764142629 No Longer Active Ian Valdez MD Active CIPRO 500 MG TAB 1 tablet by mouth twice daily CIPROFLOXACIN HCL 21170397507 No Longer Active Ian Valdez MD Active PREDNISONE 20 MG TABS 3 qd x 2d, 2 qd x 2d, 1 qd x 2d, 1/2 qd x 2d PREDNISONE 58557283375 No Longer Active Law FIGUEROA Active CELEXA 40 MG TABS 2 PO DAILY CITALOPRAM HYDROBROMIDE 23092870289 Active Ian Valdez MD Active OMEPRAZOLE 20 MG CPDR 1 tablet by mouth daily OMEPRAZOLE 61683158929 No Longer Active [place] FIGUEROA Active KLONOPIN 0.5 MG TABS 1 TABLET PO PRN CLONAZEPAM 62440690328 No Longer Active Wellington FIGUEROA Active MOBIC 7.5 MG TABS 1 tablet by mouthonce a day MELOXICAM 38886638972 No Longer Active [place] FIGUEROA Active ZITHROMAX 1 GM PACK DIRECTED AZITHROMYCIN 32764344915 No Longer Active Ian Valdez MD Active ALBUTEROL SULFATE 0.083 % NEBU SOLN one vial per nebulizer every 4-6 hours as needed ALBUTEROL SULFATE 61344650803 Active Ian Valdez MD Active CHANTIX STARTING MONTH REBEKAH 0.5 MG X 11 & 1 MG X 42 TABS 0.5mg daily for 3 days , then 0.5mg BID for 4 days, then 1mg BID VARENICLINE TARTRATE 94452305738 No Longer Active Ian Valdez MD Active ZITHROMAX 1 GM PACK DIRECTED AZITHROMYCIN 70186322406 No Longer Active Ian Valdez MD Active AURALGAN 1.4-5.5 % SOLN BENZOCAINE-ANTIPYRINE 05760731119 No Longer Active Ian Valdez MD Active PREDNISONE 20 MG TAB 3 tabs daily for 3 days, 2 tab daily for 3 days, 1 tab daily for 2 days, then 1/2 tab dialy for 2 days PREDNISONE 77401545717 No Longer Active Ian Valdez MD Active SIMVASTATIN 40 MG TABS 1 TABLET PO Q HS SIMVASTATIN 94511652322 Active Ian Valdez MD Active SIMVASTATIN 80 MG TABS Take one by mouth daily SIMVASTATIN 89237121363 No Longer Active Ian Valdez MD Active PREDNISONE 20 MG TAB 2 tabs daily for 3 days, 1 tab daily for 3 days, 1/2 tab daily for 2 days PREDNISONE 44989664096 No Longer Active Ian Valdez MD Active ZITHROMAX 250 MG TAB 2 po today, then 1 po q days 2-5 AZITHROMYCIN 38533526141 No Longer Active Ian Valdez MD Active TRAZODONE HCL 100 MG TABS 2 TABS PO Q HS TRAZODONE HCL 93133889474 Active Ian Valdez MD Active ZITHROMAX 250 MG TAB 2 po today, then 1 po q days 2-5 AZITHROMYCIN 93738293592 No Longer Active Ian Valdez MD Active SIMVASTATIN 80 MG TABS Take one by mouth daily SIMVASTATIN 80 MG TABS 570063 SIMVASTATIN Inactive AURALGAN 1.4-5.5 % SOLN AURALGAN 1.4-5.5 % SOLN BENZOCAINE-ANTIPYRINE Inactive ZITHROMAX 1 GM PACK DIRECTED ZITHROMAX 1 GM PACK 197233 AZITHROMYCIN Inactive CHANTIX STARTING MONTH REBEKAH 0.5 MG X 11 & 1 MG X 42 TABS 0.5mg daily for 3 days , then 0.5mg BID for 4 days, then 1mg BID CHANTIX STARTING MONTH REBEKAH 0.5 MG X 11 & 1 MG X 42 TABS VARENICLINE TARTRATE Inactive ZITHROMAX 1 GM PACK DIRECTED ZITHROMAX 1 GM PACK 571136 AZITHROMYCIN Inactive MOBIC 7.5 MG TABS 1 tablet by mouthonce a day MOBIC 7.5 MG TABS 307151 MELOXICAM Inactive KLONOPIN 0.5 MG TABS 1 TABLET PO PRN KLONOPIN 0.5 MG TABS 451774 CLONAZEPAM Inactive CIPRO 500 MG TAB 1 tablet by mouth twice daily CIPRO 500 MG TAB 328444 CIPROFLOXACIN HCL Inactive AZITHROMYCIN 500 MG TABS 1 PO q day x 6 days AZITHROMYCIN 500 MG TABS 8194406 AZITHROMYCIN Inactive CYCLOBENZAPRINE HCL 10 MG TABS 1 PO q 8 hrs PRN muscle spasm 2012 CYCLOBENZAPRINE HCL 10 MG TABS 056285 CYCLOBENZAPRINE HCL Inactive METFORMIN HCL 500 MG [...] bid prn anxiety. XANAX 0.25 MG TABS 844918 ALPRAZOLAM Inactive LAMISIL AT 1 % CREA apply bid to rash LAMISIL AT 1 % CREA 174961 TERBINAFINE HCL Inactive TOPAMAX 25 MG TABS 1 tab po qhs x 1 week, then take 2 tabs po qhs TOPAMAX 25 MG TABS 435702 TOPIRAMATE Inactive ZITHROMAX 250 MG TAB 2 po today, then 1 po q days 2-5 ZITHROMAX 250 MG TAB 3692992 AZITHROMYCIN Inactive ZITHROMAX 250 MG TAB 2 po today, then 1 po q days 2-5 ZITHROMAX 250 MG TAB 6399635 AZITHROMYCIN Inactive PREDNISONE 20 MG TAB 2 tabs daily for 3 days, 1 tab daily for 3 days, 1/2 tab daily for 2 days PREDNISONE 20 MG TAB 475471 PREDNISONE Inactive PREDNISONE 20 MG TAB 3 tabs daily for 3 days, 2 tab daily for 3 days, 1 tab daily for 2 days, then 1/2 tab dialy for 2 days PREDNISONE 20 MG TAB 739973 PREDNISONE Inactive OMEPRAZOLE 20 MG CPDR 1 tablet by mouth daily OMEPRAZOLE 20 MG CPDR 508973 OMEPRAZOLE Inactive PREDNISONE 20 MG TABS 3 qd x 2d, 2 qd x 2d, 1 qd x 2d, 1/2 qd x 2d PREDNISONE 20 MG TABS 914446 PREDNISONE Inactive TERBINAFINE HCL 250 MG TABS 1 qDay TERBINAFINE HCL 250 MG TABS 531410 TERBINAFINE HCL Inactive Advance Directives Directive Description Start Date NO HEROIC MEASURES Immunizations Vaccine Administration Date Value Standard Description Boostrix (Tetanus toxoid, reduced diphtheria toxoid and acellular pertussis vaccine, adsorbed), booster Boostrix [[id number]] tetanus toxoid, reduced diphtheria toxoid, and acellular [...] 5.3 % 4.3-6.0 sodium, serum 139 mmol/L 024-543 2117/02/24 potassium, serum 4.4 mmol/L 3.5-5.2 chloride, serum [...] erythrocyte (RBC) count 5.09 10^6/MM^3 10*6/mm3 4.04-5.48 mean corpuscular hemoglobin, RBC 30.7 pg 27.0-31.2 mean corpuscular hemoglobin concentration, RBC 33.8 G/DL % 31.8- 35.4 red blood cell distribution width 13.6 % 11.6-14.8 platelet count 364 10^3/MM^3 10*3/mm3 457-963 0458/02/24 leukocyte count, blood 8.4 10^3/MM^3 10*3/mm3 4.6-10.2 Lab Report: Lipid Panel - Chemistry cholesterol, serum 118 mg/dL 616-183 4102/02/24 triglyceride, serum, fasting 141 mg/dL 30-200 HDL cholesterol, serum 20 mg/dL 32-96 LDL cholesterol, serum 70 mg/dL 0-130 Office Visit: Consult infertility - Chemistry human chorionic gonadotropin, urine, qualitative (urine test) Negative Encounters Code Encounter Date Provider Facility CPT-42272 Level 3 Est. Patient 14:54:10 CDT Ian Valdez MD [facility] CPT-11761 Level 4 Est. Patient 20:36:52 CDT Ian Valdez MD [facility] CPT-94654 Level 4 Est. Patient 11:14:30 TIE UP WORKER Ian Valdez MD [facility]-91159 Level 3 Est. Patient 19:08:34 TIE UP WORKER Ian Valdez MD [facility]-58959 Level 3 Est. Patient 13:17:39 TIE UP WORKER Ian Valdez MD [facility]-61688 Level 4 Est. Patient 18:56:10 CDT Ian Valdez MD [facility]-08215 Level 4 Est. Patient 16:55:56 CDT Ian Valdez MD [facility]-23626 Level 3 Est. Patient 11:27:07 CDT Ian Valdez MD [facility]-33152 Level 3 Est. Patient 15:17:44 CDT Law Rosas [facility] CPT-57878 Level 4 Est. Patient 15:13:53 CDT Wellington uMniz [facility] CPT-98790 Level 3 Est. Patient 14:25:12 TIE UP WORKER Ian Valdez MD [facility]-03396 Level 3 Est. Patient 10:24:46 CDT Ian Valdez MD [facility]-81845 Level 3 Est. Patient 15:34:19 CDT Ian Valdez MD [facility]-06620 Level 3 Est. Patient 14:22:41 CDT Ian Valdez MD [facility]-52010 Level 3 Est. Patient 15:07:22 TIE UP WORKER Ian Valdez MD [facility] CPT-08294 Level 3 New Patient 09:06:43 TIE UP WORKER Ian Valdez MD [facility]-18520 Level 3 Est. Patient 15:09:00 TIE UP WORKER Ian Valdez MD [facility] Procedures Code Procedure Name Date Entry Date Standard Description CPT-OV Office Visit 15:19:52 CDT CPT-OV Office Visit 10:41:01 CDT CPT-25077 Core biop breast wo imaging 16:50:06 CDT CPT-OV Office Visit 16:50:05 CDT CPT-81689 UHCG (floor use only) 13:39:36 CDT CPT-42582 Nexplanon Placement 10:11:48 CDT CPT-J7307 Nexplanon (Implant) 10:11:48 CDT CPT-OV Office Visit 09:54:18 CDT CPT-75441 EKG Trac and Interp 16:50:19 CDT CPT-51639 Venipuncture Draw Fee 15:06:08 CDT CPT-J2930 Solu Medrol 125 mg (Methyl Prednisolone Sodium Succinate) 12:44:46 CDT CPT-J1055 Depo Provera 150 mg (Medroxyprogesterone) 12:44:46 CDT CPT-81324 Abx/Therapy Injection 12:44:46 CDT CPT-J1055 Depo Provera 150 mg (Medroxyprogesterone) 14:28:41 CDT CPT-J2930 Solu Medrol 125 mg (Methyl Prednisolone Sodium Succinate) 14:22:41 CDT CPT-89227 Administration single or combination vaccine inc oral 10 :08:06 CDT CPT-34185 Tdap 10:08:06 CDT CPT-G0402 Wlcm To Medicare Ex 22:17:30 CDT CPT-79879 Venipuncture Draw Fee 10:33:07 TIE UP WORKER CPT-49455 Venipuncture Draw Fee 10:17:37 TIE UP WORKER CPT-G0403 EKG Wlc To Medicare 22:17:30 CDT
--- OUTSIDE RECORDS SUMMARY | 2018-07-17 22:09 | XMS REPORT | Clinical Summary ---
Author Author Admin, ARIAN Organization [facility] Address Unknown Phone Unavailable Allergies, [...] Eva Ferrara MD PhD Acute frontal sinusitis Breast mass 611.72 Active [...] ASTHMA NOS W/ACUTE EXACERBATION ICD-493.92 Inactive Thom Gilbetr MD ACUTE BRONCHITIS ICD-466.0 Inactive Ian Valdez [...] Generic Name NDC Status Provider Patient Instruction MULTIVITAMINS CAPS 1 tablet daily MULTIPLE VITAMIN 97212004890 Active Juan Smith MD Active CYCLOBENZAPRINE HCL 10 MG TABS 1/2 - 1 tab by mouth three times daily if needed for spasms/pain CYCLOBENZAPRINE HCL 08851155492 Active Eva Ferrara MD PhD Active GLUCOPHAGE 500 MG TABS 1 tab BID with morning and night meals METFORMIN HCL 55549512306 Active Eva Ferrara MD PhD Active PROGESTERONE MICRONIZED 100 MG CAPS 2 caps daily day 16 thru 25 of cycle 2013 PROGESTERONE MICRONIZED 59470757086 Active Eva Ferrara MD PhD Active TERBINAFINE HCL 1 % CREA Apply bid to rash TERBINAFINE HCL 34398546237 No Longer Active Eva Ferrara MD PhD Active TOPAMAX 25 MG TABS 1 tab po qhs x 1 week, then take 2 tabs po qhs TOPIRAMATE 84067996302 No Longer Active Thom Gilbert MD Active ULTRAM 50 MG TAB take 1 tab po q6hrs prn pain TRAMADOL HCL 82984181894 Active Ian Valdez MD Active LAMISIL AT 1 % CREA apply bid to rash TERBINAFINE HCL 59756549879 No Longer Active Thom Gilbert MD Active TERBINAFINE HCL 250 MG TABS 1 qDay TERBINAFINE HCL 37581519925 No Longer Active Ian Valdez MD Active XANAX 0.25 MG TABS take 1 tab po bid prn anxiety. ALPRAZOLAM 00362151861 No Longer Active Ian Valdez MD Active FISH OIL 1000 MG CAPS 2 caps PO once daily at bedtime OMEGA-3 FATTY ACIDS 59187711173 No Longer Active Ian Valdez MD Active KLOR-CON M20 20 MEQ CR-TABS take 1 tab po qday with lasix POTASSIUM CHLORIDE GALILEO CR 56547104837 Active Ian Valdez MD Active LASIX 20 MG TAB 1 tablet by mouth daily prn swelling FUROSEMIDE 74593119936 Active Ian Valdez MD Active FLONASE 50 MCG/ACT SUSP 2 puffs in each nostril once daily at bedtime FLUTICASONE PROPIONATE 86372150986 Active Ian Valdez MD Active CVS MELATONIN 3 MG TABS 2 tabs PO at bedtime MELATONIN 54800201710 Active Ian Valdez MD Active PULMICORT FLEXHALER 180 MCG/ACT AEPB 2 INH BID BUDESONIDE 24001959574 No Longer Active Ian Valdez MD Active METFORMIN HCL 500 MG TB24 1 TAB PO Q HS METFORMIN HCL 42351173413 No Longer Active Ian Valdez MD Active CYCLOBENZAPRINE HCL 10 MG TABS 1 PO q 8 hrs PRN muscle spasm 2012 CYCLOBENZAPRINE HCL 97086065953 No Longer Active Ian Valdez MD Active AZITHROMYCIN 500 MG TABS 1 PO q day x 6 days AZITHROMYCIN 98827315761 No Longer Active Ian Valdez MD Active CIPRO 500 MG TAB 1 tablet by mouth twice daily CIPROFLOXACIN HCL 32389933594 No Longer Active Ian Valdez MD Active PREDNISONE 20 MG TABS 3 qd x 2d, 2 qd x 2d, 1 qd x 2d, 1/2 qd x 2d PREDNISONE 56716422298 No Longer Active Law FIGUEROA Active CELEXA 40 MG TABS 2 PO DAILY CITALOPRAM HYDROBROMIDE 07570172306 Active Ian Valdez MD Active OMEPRAZOLE 20 MG CPDR 1 tablet by mouth daily OMEPRAZOLE 37304960685 No Longer Active [place] FIGUEROA Active KLONOPIN 0.5 MG TABS 1 TABLET PO PRN CLONAZEPAM 62942185561 No Longer Active [place] FIGUEROA Active MOBIC 7.5 MG TABS 1 tablet by mouthonce a day MELOXICAM 46714315249 No Longer Active [place] FIGUEROA Active ZITHROMAX 1 GM PACK DIRECTED AZITHROMYCIN 43068594190 No Longer Active Ian Valdez MD Active ALBUTEROL SULFATE 0.083 % MARILYN LINDSAY one vial per nebulizer every 4-6 hours as needed ALBUTEROL SULFATE 01838026824 Active Ian Valdez MD Active CHANTIX STARTING MONTH REBEKAH 0.5 MG X 11 & 1 MG X 42 TABS 0.5mg daily for 3 days , then 0.5mg BID for 4 days, then 1mg BID VARENICLINE TARTRATE 66609639875 No Longer Active Ian Valdez MD Active ZITHROMAX 1 GM PACK DIRECTED AZITHROMYCIN 63951128314 No Longer Active Ian Valdez MD Active AURALGAN 1.4-5.5 % SOLN BENZOCAINE-ANTIPYRINE 45266363569 No Longer Active Ian Valdez MD Active PREDNISONE 20 MG TAB 3 tabs daily for 3 days, 2 tab daily for 3 days, 1 tab daily for 2 days, then 1/2 tab dialy for 2 days PREDNISONE 52856793060 No Longer Active Ian Valdez MD Active SIMVASTATIN 40 MG TABS 1 TABLET PO Q HS SIMVASTATIN 03943350308 Active Ian Valdez MD Active SIMVASTATIN 80 MG TABS Take one by mouth daily SIMVASTATIN 05168419587 No Longer Active Ian Valdez MD Active PREDNISONE 20 MG TAB 2 tabs daily for 3 days, 1 tab daily for 3 days, 1/2 tab daily for 2 days PREDNISONE 54986316107 No Longer Active Ian Valdez MD Active ZITHROMAX 250 MG TAB 2 po today, then 1 po q days 2-5 AZITHROMYCIN 57695019479 No Longer Active Ian Valdez MD Active TRAZODONE HCL 100 MG TABS 2 TABS PO Q HS TRAZODONE HCL 59641785730 Active Ian Valdez MD Active ZITHROMAX 250 MG TAB 2 po today, then 1 po q days 2-5 AZITHROMYCIN 08508606239 No Longer Active Ian Valdez MD Active SIMVASTATIN 80 MG TABS Take one by mouth daily SIMVASTATIN 80 MG TABS 169703 SIMVASTATIN Inactive AURALGAN 1.4-5.5 % SOLN AURALGAN 1.4-5.5 % SOLN BENZOCAINE-ANTIPYRINE Inactive ZITHROMAX 1 GM PACK DIRECTED ZITHROMAX 1 GM PACK 658388 AZITHROMYCIN Inactive CHANTIX STARTING MONTH REBEKAH 0.5 MG X 11 & 1 MG X 42 TABS 0.5mg daily for 3 days , then 0.5mg BID for 4 days, then 1mg BID CHANTIX STARTING MONTH REBEKAH 0.5 MG X 11 & 1 MG X 42 TABS VARENICLINE TARTRATE Inactive ZITHROMAX 1 GM PACK DIRECTED ZITHROMAX 1 GM PACK 940351 AZITHROMYCIN Inactive MOBIC 7.5 MG TABS 1 tablet by mouthonce a day MOBIC 7.5 MG TABS 630540 MELOXICAM Inactive KLONOPIN 0.5 MG TABS 1 TABLET PO PRN KLONOPIN 0.5 MG TABS 838833 CLONAZEPAM Inactive CIPRO 500 MG TAB 1 tablet by mouth twice daily CIPRO 500 MG TAB 078570 CIPROFLOXACIN HCL Inactive AZITHROMYCIN 500 MG TABS 1 PO q day x 6 days AZITHROMYCIN 500 MG TABS 4656667 AZITHROMYCIN Inactive CYCLOBENZAPRINE HCL 10 MG TABS 1 PO q 8 hrs PRN muscle spasm 2012 CYCLOBENZAPRINE HCL 10 MG TABS 444872 CYCLOBENZAPRINE HCL Inactive METFORMIN HCL 500 MG [...] bid prn anxiety. XANAX 0.25 MG TABS 427605 ALPRAZOLAM Inactive LAMISIL AT 1 % CREA apply bid to rash LAMISIL AT 1 % CREA 563518 TERBINAFINE HCL Inactive TOPAMAX 25 MG TABS 1 tab po qhs x 1 week, then take 2 tabs po qhs TOPAMAX 25 MG TABS 410207 TOPIRAMATE Inactive TERBINAFINE HCL 1 % CREA Apply bid to rash TERBINAFINE HCL 1 % CREA 650025 TERBINAFINE HCL Inactive ZITHROMAX 250 MG TAB 2 po today, then 1 po q days 2-5 ZITHROMAX 250 MG TAB 4849321 AZITHROMYCIN Inactive ZITHROMAX 250 MG TAB 2 po today, then 1 po q days 2-5 ZITHROMAX 250 MG TAB 4395948 AZITHROMYCIN Inactive PREDNISONE 20 MG TAB 2 tabs daily for 3 days, 1 tab daily for 3 days, 1/2 tab daily for 2 days PREDNISONE 20 MG TAB 574548 PREDNISONE Inactive PREDNISONE 20 MG TAB 3 tabs daily for 3 days, 2 tab daily for 3 days, 1 tab daily for 2 days, then 1/2 tab dialy for 2 days PREDNISONE 20 MG TAB 873093 PREDNISONE Inactive OMEPRAZOLE 20 MG CPDR 1 tablet by mouth daily OMEPRAZOLE 20 MG CPDR 619213 OMEPRAZOLE Inactive PREDNISONE 20 MG TABS 3 qd x 2d, 2 qd x 2d, 1 qd x 2d, 1/2 qd x 2d PREDNISONE 20 MG TABS 661936 PREDNISONE Inactive TERBINAFINE HCL 250 MG TABS 1 qDay TERBINAFINE HCL 250 MG TABS 138062 TERBINAFINE HCL Inactive Advance Directives Directive Description Start Date NO HEROIC MEASURES Immunizations Vaccine Administration Date Value Standard Description Combined Yvrccrmxtt-Evxrstm-kvsnsafhy Pertussis (dTpa) Vaccine - Booster 07/05 Boostrix [[id number]] tetanus toxoid, reduced diphtheria toxoid, and acellular pertussis vaccine, adsorbed Vital Signs Date Name Value Unit Range Description blood pressure, diastolic 86 mm[Hg] BP [place] blood pressure, systolic 138 mm[Hg] BP sys pulse rate E&M 99 /min Heart rate temperature E&M 98.5 [degF] Body temperature weight E&M 216.4 [lb_av] Weight Measured blood pressure, diastolic 87 mm[Hg] BP agu[place] [...] 5.3 % 4.3-6.0 sodium, serum 139 mmol/L 562-929 0726/02/24 potassium, serum 4.4 mmol/L 3.5-5.2 chloride, serum [...] Thyroid Stimulating Hormone (L), ... - Chemistry blood glucose 84 mg/dL 65-110 urea nitrogen, blood 11 mg/dL 7-18 creatinine, serum 0.90 mg/dL 0.60-1.30 alanine aminotransferase (SGPT), serum 23 U/L 12-78 aspartate aminotransferase (SGOT), serum 17 U/L 15-37 calcium, serum 9.5 mg/dL 8.5-10.1 bilirubin, serum, total 0.70 mg/dL 0.00-1.00 hemoglobin A1C, blood, as % of total hemoglobin 5.1 % 4.3-6.0 thyroxine, serum, free 1.02 ng/dL 0.76-1.46 TSH 1.44 m[iU]/mL 0.36-3.74 cholesterol, serum 144 mg/dL 884-036 2748/11/19 triglyceride, serum, fasting 172 mg/dL 30-200 HDL cholesterol, serum 30 mg/dL 32-96 LDL cholesterol, serum 80 mg/dL 0-130 sodium, serum 137 mmol/L 512-681 3404/11/19 potassium, serum 4.1 mmol/L 3.5-5.2 chloride, serum 100 mmol/L 98-107 carbon dioxide, venous blood 26.9 mmol/L 21.0-32.0 Lab Report: Lipid Panel - Chemistry cholesterol, serum 118 mg/dL 676-585 3309/02/24 triglyceride, serum, fasting 141 mg/dL 30-200 HDL cholesterol, serum 20 mg/dL 32-96 LDL cholesterol, serum 70 mg/dL 0-130 Office Visit: Consult infertility - Chemistry human chorionic gonadotropin, urine, qualitative (urine test) Negative Encounters Code Encounter Date Provider Facility CPT-17455 Level 3 Est. Patient 15:32:41 HVAC TECHNICIAN Juan Smith MD [facility] CPT-37839 Level 3 Est. Patient 14:45:01 CDT Eva Ferrara MD PhD [facility] CPT-63240 Level 3 Est. Patient 14:54:10 CDT Ian Valdez MD [facility] CPT-04717 Level 4 Est. Patient 20:36:52 CDT Ian Valdez MD [facility] CPT-40692 Level 4 Est. Patient 11:14:30 HVAC TECHNICIAN Ian Valdez MD [facility] CPT-84288 Level 3 Est. Patient 19:08:34 HVAC TECHNICIAN Ian Valdez MD [facility] CPT-06896 Level 3 Est. Patient 13:17:39 HVAC TECHNICIAN Ian Valdez MD [facility] CPT-60249 Level 4 Est. Patient 18:56:10 CDT Ian Valdez MD [facility] CPT-59566 Level 4 Est. Patient 16:55:56 CDT Ian Valdez MD [facility] CPT-29798 Level 3 Est. Patient 11:27:07 CDT Ian Valdez MD [facility] CPT-13387 Level 3 Est. Patient 15:17:44 CDT Law Rosas [facility] CPT-84928 Level 4 Est. Patient 15:13:53 CDT Wellington Muniz [facility] CPT-27996 Level 3 Est. Patient 14:25:12 HVAC TECHNICIAN Ian Valdez MD [facility] CPT-26787 Level 3 Est. Patient 10:24:46 CDT Ian Valdez MD [facility] CPT-75647 Level 3 Est. Patient 15:34:19 CDT Ian Valdez MD [facility] CPT-28342 Level 3 Est. Patient 14:22:41 CDT Ian Valdez MD [facility] CPT-10380 Level 3 Est. Patient 15:07:22 HVAC TECHNICIAN Ian Valdez MD [facility] CPT-74833 Level 3 New Patient 09:06:43 HVAC TECHNICIAN Ian Valdez MD [facility] CPT-37304 Level 3 Est. Patient 15:09:00 HVAC TECHNICIAN Ian Valdez MD [facility] Procedures Code Procedure Name Date Entry Date Standard Description CPT-J1885 Toradol 60 mg (Ketorolac) 15:37:32 CDT CPT-86596 Abx/Therapy Injection 15:37:32 CDT CPT-J1885 Toradol 60 mg (Ketorolac) 14:45:01 CDT CPT-OV Office Visit 15:19:52 CDT CPT-OV Office Visit 10:41:01 CDT CPT-75139 Core biop breast wo imaging 16:50:06 CDT CPT-OV Office Visit 16:50:05 CDT CPT-35978 UHCG (floor use only) 13:39:36 CDT CPT-93402 Nexplanon Placement 10:11:48 CDT CPT-J7307 Nexplanon (Implant) 10:11:48 CDT CPT-OV Office Visit 09:54:18 CDT CPT-07547 EKG Trac and Interp 16:50:19 CDT CPT-13875 Venipuncture Draw Fee 15:06:08 CDT CPT-J2930 Solu Medrol 125 mg (Methyl Prednisolone Sodium Succinate) 12:44:46 CDT CPT-J1055 Depo Provera 150 mg (Medroxyprogesterone) 12:44:46 CDT CPT-69848 Abx/Therapy Injection 12:44:46 CDT CPT-J1055 Depo Provera 150 mg (Medroxyprogesterone) 14:28:41 CDT CPT-J2930 Solu Medrol 125 mg (Methyl Prednisolone Sodium Succinate) 14:22:41 CDT CPT-23295 Administration single or combination vaccine inc oral 10 :08:06 CDT CPT-28279 Tdap 10:08:06 CDT CPT-G0402 Wlcm To Medicare Ex 22:17:30 CDT CPT-63945 Venipuncture Draw Fee 10:33:07 HVAC TECHNICIAN CPT-93846 Venipuncture Draw Fee 10:17:37 HVAC TECHNICIAN CPT-G0403 EKG Wlc To Medicare 22:17:30 CDT
--- OUTSIDE RECORDS SUMMARY | 2018-07-17 22:10 | XMS REPORT | Clinical Summary ---
[...] cap by mouth twice daily DOXYCYCLINE HYCLATE [id number] No Longer Active Najma Vaughn SAMI Active MULTIVITAMINS CAPS 1 tablet daily MULTIPLE VITAMIN 48729769217 Active Juan Smith MD Active CYCLOBENZAPRINE HCL 10 MG TABS 1/2 - 1 tab by mouth three times daily if needed for spasms/pain CYCLOBENZAPRINE HCL 82292660627 Active Ian Valdez MD Active GLUCOPHAGE 500 MG TABS 1 tab BID with morning and night meals METFORMIN HCL 70146168065 Active Eva Ferrara MD PhD Active PROGESTERONE MICRONIZED 100 MG CAPS 2 caps daily day 16 thru 25 of cycle 2013 PROGESTERONE MICRONIZED 86880887816 Active Eva Ferrara MD PhD Active TERBINAFINE HCL 1 % CREA Apply bid to rash TERBINAFINE HCL 77962745681 No Longer Active Eva Ferrara MD PhD Active TOPAMAX 25 MG TABS 1 tab po qhs x 1 week, then take 2 tabs po qhs TOPIRAMATE 07101323097 No Longer Active Thom Gilbert MD Active ULTRAM 50 MG TAB take 1 tab po q6hrs prn pain TRAMADOL HCL 49192358488 Active Juan Smith MD Active LAMISIL AT 1 % CREA apply bid to rash TERBINAFINE HCL 19514978595 No Longer Active Thom Gilbert MD Active TERBINAFINE HCL 250 MG TABS 1 qDay TERBINAFINE HCL 51498119748 No Longer Active Ian Valdez MD Active XANAX 0.25 MG TABS take 1 tab po bid prn anxiety. ALPRAZOLAM 30263363367 No Longer Active Ian Valdez MD Active FISH OIL 1000 MG CAPS 2 caps PO once daily at bedtime OMEGA-3 FATTY ACIDS 67027156609 No Longer Active Ian Valdez MD Active KLOR-CON M20 20 MEQ CR-TABS take 1 tab po qday with lasix POTASSIUM CHLORIDE GALILEO CR 30136186405 Active Ian Valdez MD Active LASIX 20 MG TAB 1 tablet by mouth daily prn swelling FUROSEMIDE 47825991122 Active Ian Valdez MD Active FLONASE 50 MCG/ACT SUSP 2 puffs in each nostril once daily at bedtime FLUTICASONE PROPIONATE 11684715836 Active Ian Valdez MD Active [facility]S MELATONIN 3 MG TABS 2 tabs PO at bedtime MELATONIN 40766961990 Active Ian Valdez MD Active PULMICORT FLEXHALER 180 MCG/ACT AEPB 2 INH BID BUDESONIDE 20040860522 No Longer Active Ian Valdez MD Active METFORMIN HCL 500 MG TB24 1 TAB PO Q HS METFORMIN HCL 71556793066 No Longer Active Ian Valdez MD Active CYCLOBENZAPRINE HCL 10 MG TABS 1 PO q 8 hrs PRN muscle spasm 2012 CYCLOBENZAPRINE HCL 69275184299 No Longer Active Ian Valdez MD Active AZITHROMYCIN 500 MG TABS 1 PO q day x 6 days AZITHROMYCIN 88909689237 No Longer Active Ian Valdez MD Active CIPRO 500 MG TAB 1 tablet by mouth twice daily CIPROFLOXACIN HCL 27996034630 No Longer Active Ian Valdez MD Active PREDNISONE 20 MG TABS 3 qd x 2d, 2 qd x 2d, 1 qd x 2d, 1/2 qd x 2d PREDNISONE 94543329081 No Longer Active Law FIGUEROA Active CELEXA 40 MG TABS 2 PO DAILY CITALOPRAM HYDROBROMIDE 57960388203 Active Ian Valdez MD Active OMEPRAZOLE 20 MG CPDR 1 tablet by mouth daily OMEPRAZOLE 93187489558 No Longer Active [place] FIGUEROA Active KLONOPIN 0.5 MG TABS 1 TABLET PO PRN CLONAZEPAM 72660395865 No Longer Active [place] FIGUEROA Active MOBIC 7.5 MG TABS 1 tablet by mouthonce a day MELOXICAM 64217129899 No Longer Active [place] FIGUEROA Active ZITHROMAX 1 GM PACK DIRECTED AZITHROMYCIN 50837936481 No Longer Active Ian Valdez MD Active ALBUTEROL SULFATE 0.083 % NEBU SOLN one vial per nebulizer every 4-6 hours as needed ALBUTEROL SULFATE 90282556973 Active Ian Valdez MD Active CHANTIX STARTING MONTH REBEKAH 0.5 MG X 11 & 1 MG X 42 TABS 0.5mg daily for 3 days , then 0.5mg BID for 4 days, then 1mg BID VARENICLINE TARTRATE 56382176888 No Longer Active Ian Valdez MD Active ZITHROMAX 1 GM PACK DIRECTED AZITHROMYCIN 02271691695 No Longer Active Ian Valdez MD Active AURALGAN 1.4-5.5 % SOLN BENZOCAINE-ANTIPYRINE 66304154082 No Longer Active Ian Valdez MD Active PREDNISONE 20 MG TAB 3 tabs daily for 3 days, 2 tab daily for 3 days, 1 tab daily for 2 days, then 1/2 tab dialy for 2 days PREDNISONE 78335823995 No Longer Active Ian Valdez MD Active SIMVASTATIN 40 MG TABS 1 TABLET PO Q HS SIMVASTATIN 52408764108 Active Ian Valdez MD Active SIMVASTATIN 80 MG TABS Take one by mouth daily SIMVASTATIN 41586840434 No Longer Active Ian Valdez MD Active PREDNISONE 20 MG TAB 2 tabs daily for 3 days, 1 tab daily for 3 days, 1/2 tab daily for 2 days PREDNISONE 98368176028 No Longer Active Ian Valdez MD Active ZITHROMAX 250 MG TAB 2 po today, then 1 po q days 2-5 AZITHROMYCIN 63577662515 No Longer Active Ian Valdez MD Active TRAZODONE HCL 100 MG TABS 2 TABS PO Q HS TRAZODONE HCL 30158161497 Active Ian Valdez MD Active ZITHROMAX 250 MG TAB 2 po today, then 1 po q days 2-5 AZITHROMYCIN 50550804671 No Longer Active Ian Valdez MD Active SIMVASTATIN 80 MG TABS Take one by mouth daily SIMVASTATIN 80 MG TABS 608885 SIMVASTATIN Inactive AURALGAN 1.4-5.5 % SOLN AURALGAN 1.4-5.5 % SOLN BENZOCAINE-ANTIPYRINE Inactive ZITHROMAX 1 GM PACK DIRECTED ZITHROMAX 1 GM PACK 926700 AZITHROMYCIN Inactive CHANTIX STARTING MONTH REBEKAH 0.5 MG X 11 & 1 MG X 42 TABS 0.5mg daily for 3 days , then 0.5mg BID for 4 days, then 1mg BID CHANTIX STARTING MONTH REBEKAH 0.5 MG X 11 & 1 MG X 42 TABS VARENICLINE TARTRATE Inactive ZITHROMAX 1 GM PACK DIRECTED ZITHROMAX 1 GM PACK 791916 AZITHROMYCIN Inactive MOBIC 7.5 MG TABS 1 tablet by mouthonce a day MOBIC 7.5 MG TABS 255141 MELOXICAM Inactive KLONOPIN 0.5 MG TABS 1 TABLET PO PRN KLONOPIN 0.5 MG TABS 084867 CLONAZEPAM Inactive CIPRO 500 MG TAB 1 tablet by mouth twice daily CIPRO 500 MG TAB 270068 CIPROFLOXACIN HCL Inactive AZITHROMYCIN 500 MG TABS 1 PO q day x 6 days AZITHROMYCIN 500 MG TABS 3119075 AZITHROMYCIN Inactive CYCLOBENZAPRINE HCL 10 MG TABS 1 PO q 8 hrs PRN muscle spasm 2012 CYCLOBENZAPRINE HCL 10 MG TABS 240811 CYCLOBENZAPRINE HCL Inactive METFORMIN HCL 500 MG [...] bid prn anxiety. XANAX 0.25 MG TABS 755533 ALPRAZOLAM Inactive LAMISIL AT 1 % CREA apply bid to rash LAMISIL AT 1 % CREA 699568 TERBINAFINE HCL Inactive TOPAMAX 25 MG TABS 1 tab po qhs x 1 week, then take 2 tabs po qhs TOPAMAX 25 MG TABS 426826 TOPIRAMATE Inactive TERBINAFINE HCL 1 % CREA Apply bid to rash TERBINAFINE HCL 1 % CREA 374357 TERBINAFINE HCL Inactive ZITHROMAX 250 MG TAB 2 po today, then 1 po q days 2-5 ZITHROMAX 250 MG TAB 9599536 AZITHROMYCIN Inactive ZITHROMAX 250 MG TAB 2 po today, then 1 po q days 2-5 ZITHROMAX 250 MG TAB 4774947 AZITHROMYCIN Inactive PREDNISONE 20 MG TAB 2 tabs daily for 3 days, 1 tab daily for 3 days, 1/2 tab daily for 2 days PREDNISONE 20 MG TAB 486010 PREDNISONE Inactive PREDNISONE 20 MG TAB 3 tabs daily for 3 days, 2 tab daily for 3 days, 1 tab daily for 2 days, then 1/2 tab dialy for 2 days PREDNISONE 20 MG TAB 775836 PREDNISONE Inactive OMEPRAZOLE 20 MG CPDR 1 tablet by mouth daily OMEPRAZOLE 20 MG CPDR 136317 OMEPRAZOLE Inactive PREDNISONE 20 MG TABS 3 qd x 2d, 2 qd x 2d, 1 qd x 2d, 1/2 qd x 2d PREDNISONE 20 MG TABS 813865 PREDNISONE Inactive TERBINAFINE HCL 250 MG TABS 1 qDay TERBINAFINE HCL 250 MG TABS 917225 TERBINAFINE HCL Inactive DOXYCYCLINE HYCLATE 100 MG CAP 1 cap by mouth twice daily DOXYCYCLINE HYCLATE 100 MG CAP 976385 DOXYCYCLINE HYCLATE Inactive Advance Directives Directive Description Start Date NO HEROIC MEASURES Immunizations Vaccine Administration Date Value Standard Description Boostrix (Tetanus toxoid, reduced diphtheria toxoid and acellular pertussis vaccine, adsorbed), booster Boostrix [[id number]] tetanus toxoid, reduced diphtheria toxoid, and acellular [...] 5.3 % 4.3-6.0 sodium, serum 139 mmol/L 763-625 9508/02/24 potassium, serum 4.4 mmol/L 3.5-5.2 chloride, serum [...] 1.44 m[iU]/mL 0.36-3.74 cholesterol, serum 144 mg/dL 645-379 4652/11/19 triglyceride, serum, fasting 172 mg/dL 30-200 HDL cholesterol, serum 30 mg/dL 32-96 LDL cholesterol, serum 80 mg/dL 0-130 sodium, serum 137 mmol/L 524-583 2748/11/19 potassium, serum 4.1 mmol/L 3.5-5.2 chloride, serum [...] Panel - Chemistry cholesterol, serum 118 mg/dL 555-251 2535/02/24 triglyceride, serum, fasting 141 mg/dL 30-200 HDL [...] mg/dL Encounters Code Encounter Date Provider Facility CPT-45969 Level 3 Est. Patient 15:50:27 MAINTENANCE SUPERVISOR Najma Vaughn APRN [facility] CPT-32578 Level 4 Est. Patient 21:20:00 MAINTENANCE SUPERVISOR Ian Valdez MD [facility] CPT-58620 Level 3 Est. Patient 15:32:41 MAINTENANCE SUPERVISOR Juan Smith MD [facility] CPT-10476 Level 3 Est. Patient 14:45:01 CDT Eva Ferrara MD PhD [facility] CPT-69948 Level 3 Est. Patient 14:54:10 CDT Ian Valdez MD [facility] CPT-97946 Level 4 Est. Patient 20:36:52 CDT Ian Valdez MD [facility] CPT-05668 Level 4 Est. Patient 11:14:30 MAINTENANCE SUPERVISOR Ian Valdez MD [facility] CPT-25537 Level 3 Est. Patient 19:08:34 MAINTENANCE SUPERVISOR Ian Valdez MD [facility] CPT-41830 Level 3 Est. Patient 13:17:39 MAINTENANCE SUPERVISOR Ian Valdez MD [facility] CPT-13807 Level 4 Est. Patient 18:56:10 CDT Ian Valdez MD [facility] CPT-16390 Level 4 Est. Patient 16:55:56 CDT Ian Valdez MD [facility] CPT-55793 Level 3 Est. Patient 11:27:07 CDT Ian Valdez MD [facility] CPT-01532 Level 3 Est. Patient 15:17:44 CDT Law Rosas [facility] CPT-44309 Level 4 Est. Patient 15:13:53 CDT Wellington Muniz [facility] CPT-52720 Level 3 Est. Patient 14:25:12 MAINTENANCE SUPERVISOR Ian Valdez MD [facility] CPT-67337 Level 3 Est. Patient 10:24:46 CDT Ian Valdez MD [facility] CPT-43880 Level 3 Est. Patient 15:34:19 CDT Ian Valdez MD [facility] CPT-62775 Level 3 Est. Patient 14:22:41 CDT Ian Valdez MD [facility] CPT-09737 Level 3 Est. Patient 15:07:22 MAINTENANCE SUPERVISOR Ian Valdez MD [facility] CPT-57036 Level 3 New Patient 09:06:43 MAINTENANCE SUPERVISOR Ian Valdez MD [facility] CPT-89148 Level 3 Est. Patient 15:09:00 MAINTENANCE SUPERVISOR Ian Valdez MD [facility] Procedures Code Procedure Name Date Entry Date Standard Description CPT-OV Office Visit 15:49:26 MAINTENANCE SUPERVISOR CPT-J1885 Toradol 60 mg (Ketorolac) 15:37:32 CDT CPT-72446 Abx/Therapy Injection 15:37:32 CDT CPT-J1885 Toradol 60 mg (Ketorolac) 14:45:01 CDT CPT-OV Office Visit 15:19:52 CDT CPT-OV Office Visit 10:41:01 CDT CPT-33867 Core biop breast wo imaging 16:50:06 CDT CPT-OV Office Visit 16:50:05 CDT CPT-59214 UHCG (floor use only) 13:39:36 CDT CPT-79283 Nexplanon Placement 10:11:48 CDT CPT-J7307 Nexplanon (Implant) 10:11:48 CDT CPT-OV Office Visit 09:54:18 CDT CPT-09966 EKG Trac and Interp 16:50:19 CDT CPT-35026 Venipuncture Draw Fee 15:06:08 CDT CPT-J2930 Solu Medrol 125 mg (Methyl Prednisolone Sodium Succinate) 12:44:46 CDT CPT-J1055 Depo Provera 150 mg (Medroxyprogesterone) 12:44:46 CDT CPT-40391 Abx/Therapy Injection 12:44:46 CDT CPT-J1055 Depo Provera 150 mg (Medroxyprogesterone) 14:28:41 CDT CPT-J2930 Solu Medrol 125 mg (Methyl Prednisolone Sodium Succinate) 14:22:41 CDT CPT-64282 Administration single or combination vaccine inc oral 10 :08:06 CDT CPT-22295 Tdap 10:08:06 CDT CPT-G0402 Wl To Medicare Ex 22:17:30 CDT CPT-27132 Venipuncture Draw Fee 10:33:07 MAINTENANCE SUPERVISOR CPT-32978 Venipuncture Draw Fee 10:17:37 MAINTENANCE SUPERVISOR CPT-G0403 EKG Wl To Medicare 22:17:30 CDT
--- OUTSIDE RECORDS SUMMARY | 2018-07-17 22:11 | XMS REPORT | Clinical Summary ---
Author Author Admin, ARIAN Organization [facility] Address Unknown Phone Allergies, Adverse Reactions, [...] CREA apply bid to rash TERBINAFINE HCL 40629048180 Active Ian Valdez MD Active TERBINAFINE HCL 250 MG TABS 1 qDay TERBINAFINE HCL 36816405744 No Longer Active Ian Valdez MD Active TOPAMAX 25 MG TABS 1 tab po qhs x 1 week, then take 2 tabs po qhs TOPIRAMATE 06469391782 Active Ian Valdez MD Active XANAX 0.25 MG TABS take 1 tab po bid prn anxiety. ALPRAZOLAM 57095236238 No Longer Active Ian Valdez MD Active FISH OIL 1000 MG CAPS 2 caps PO once daily at bedtime OMEGA-3 FATTY ACIDS 69656257696 No Longer Active Ian Valdez MD Active KLOR-CON M20 20 MEQ CR-TABS take 1 tab po qday with lasix POTASSIUM CHLORIDE GALILEO CR 70475607025 Active Ian Valdez MD Active LASIX 20 MG TAB 1 tablet by mouth daily prn swelling FUROSEMIDE 41554289948 Active Ian Valdez MD Active FLONASE 50 MCG/ACT SUSP 2 puffs in each nostril once daily at bedtime FLUTICASONE PROPIONATE 10340019928 Active Ian Valdez MD Active [facility]S MELATONIN 3 MG TABS 2 tabs PO at bedtime MELATONIN 67355274694 Active Ian Valdez MD Active PULMICORT FLEXHALER 180 MCG/ACT AEPB 2 INH BID BUDESONIDE 68129353193 No Longer Active Ian Valdez MD Active METFORMIN HCL 500 MG TB24 1 TAB PO Q HS METFORMIN HCL 90304589541 No Longer Active Ian Valdez MD Active CYCLOBENZAPRINE HCL 10 MG TABS 1 PO q 8 hrs PRN muscle spasm 2012 CYCLOBENZAPRINE HCL 05669323827 No Longer Active Ian Valdez MD Active AZITHROMYCIN 500 MG TABS 1 PO q day x 6 days AZITHROMYCIN 59622774259 No Longer Active Ian Valdez MD Active CIPRO 500 MG TAB 1 tablet by mouth twice daily CIPROFLOXACIN HCL 11192862633 No Longer Active Ian Valdez MD Active PREDNISONE 20 MG TABS 3 qd x 2d, 2 qd x 2d, 1 qd x 2d, 1/2 qd x 2d PREDNISONE 00955686482 No Longer Active Law FIGUEROA Active CELEXA 40 MG TABS 2 PO DAILY CITALOPRAM HYDROBROMIDE 77406011330 Active Ian Valdez MD Active OMEPRAZOLE 20 MG CPDR 1 tablet by mouth daily OMEPRAZOLE 55470313170 No Longer Active [place] FIGUEROA Active KLONOPIN 0.5 MG TABS 1 TABLET PO PRN CLONAZEPAM 37730119580 No Longer Active [place] FIGUEROA Active MOBIC 7.5 MG TABS 1 tablet by mouthonce a day MELOXICAM 11583597588 No Longer Active [place] FIGUEROA Active ZITHROMAX 1 GM PACK DIRECTED AZITHROMYCIN 01031628498 No Longer Active Ian Valdez MD Active ALBUTEROL SULFATE 0.083 % NEBU SOLN one vial per nebulizer every 4-6 hours as needed ALBUTEROL SULFATE 76063355018 Active Ian Valdez MD Active CHANTIX STARTING MONTH REBEKAH 0.5 MG X 11 & 1 MG X 42 TABS 0.5mg daily for 3 days , then 0.5mg BID for 4 days, then 1mg BID VARENICLINE TARTRATE 55127326724 No Longer Active Ian Valdez MD Active ZITHROMAX 1 GM PACK DIRECTED AZITHROMYCIN 72898212471 No Longer Active Ian Valdez MD Active AURALGAN 1.4-5.5 % SOLN BENZOCAINE-ANTIPYRINE 81599991130 No Longer Active Ian Valdez MD Active PREDNISONE 20 MG TAB 3 tabs daily for 3 days, 2 tab daily for 3 days, 1 tab daily for 2 days, then 1/2 tab dialy for 2 days PREDNISONE 70560784889 No Longer Active Ian Valdez MD Active SIMVASTATIN 40 MG TABS 1 TABLET PO Q HS SIMVASTATIN 46109250641 Active Ian Valdez MD Active SIMVASTATIN 80 MG TABS Take one by mouth daily SIMVASTATIN 94482239980 No Longer Active Ian Valdez MD Active PREDNISONE 20 MG TAB 2 tabs daily for 3 days, 1 tab daily for 3 days, 1/2 tab daily for 2 days PREDNISONE 64724183978 No Longer Active Ian Valdez MD Active ZITHROMAX 250 MG TAB 2 po today, then 1 po q days 2-5 AZITHROMYCIN 51271943876 No Longer Active Ian Valdez MD Active TRAZODONE HCL 100 MG TABS 2 TABS PO Q HS TRAZODONE HCL 37230251530 Active Ian Valdez MD Active ZITHROMAX 250 MG TAB 2 po today, then 1 po q days 2-5 AZITHROMYCIN 57014455272 No Longer Active Ian Valdez MD Active SIMVASTATIN 80 MG TABS Take one by mouth daily SIMVASTATIN 80 MG TABS 930562 SIMVASTATIN Inactive AURALGAN 1.4-5.5 % SOLN AURALGAN 1.4-5.5 % SOLN 0534569 BENZOCAINE-ANTIPYRINE Inactive ZITHROMAX 1 GM PACK DIRECTED ZITHROMAX 1 GM PACK 227289 AZITHROMYCIN Inactive CHANTIX STARTING MONTH REBEKAH 0.5 MG X 11 & 1 MG X 42 TABS 0.5mg daily for 3 days , then 0.5mg BID for 4 days, then 1mg BID CHANTIX STARTING MONTH REBEKAH 0.5 MG X 11 & 1 MG X 42 TABS VARENICLINE TARTRATE Inactive ZITHROMAX 1 GM PACK DIRECTED ZITHROMAX 1 GM PACK 472376 AZITHROMYCIN Inactive MOBIC 7.5 MG TABS 1 tablet by mouthonce a day MOBIC 7.5 MG TABS 465781 MELOXICAM Inactive KLONOPIN 0.5 MG TABS 1 TABLET PO PRN KLONOPIN 0.5 MG TABS 576805 CLONAZEPAM Inactive CIPRO 500 MG TAB 1 tablet by mouth twice daily CIPRO 500 MG TAB 520526 CIPROFLOXACIN HCL Inactive AZITHROMYCIN 500 MG TABS 1 PO q day x 6 days AZITHROMYCIN 500 MG TABS 9720809 AZITHROMYCIN Inactive CYCLOBENZAPRINE HCL 10 MG TABS 1 PO q 8 hrs PRN muscle spasm 2012 CYCLOBENZAPRINE HCL 10 MG TABS 941011 CYCLOBENZAPRINE HCL Inactive METFORMIN HCL 500 MG [...] bid prn anxiety. XANAX 0.25 MG TABS 633970 ALPRAZOLAM Inactive ZITHROMAX 250 MG TAB 2 po today, then 1 po q days 2-5 ZITHROMAX 250 MG TAB 4490134 AZITHROMYCIN Inactive ZITHROMAX 250 MG TAB 2 po today, then 1 po q days 2-5 ZITHROMAX 250 MG TAB 0501094 AZITHROMYCIN Inactive PREDNISONE 20 MG TAB 2 tabs daily for 3 days, 1 tab daily for 3 days, 1/2 tab daily for 2 days PREDNISONE 20 MG TAB 814938 PREDNISONE Inactive PREDNISONE 20 MG TAB 3 tabs daily for 3 days, 2 tab daily for 3 days, 1 tab daily for 2 days, then 1/2 tab dialy for 2 days PREDNISONE 20 MG TAB 752325 PREDNISONE Inactive OMEPRAZOLE 20 MG CPDR 1 tablet by mouth daily OMEPRAZOLE 20 MG CPDR 833271 OMEPRAZOLE Inactive PREDNISONE 20 MG TABS 3 qd x 2d, 2 qd x 2d, 1 qd x 2d, 1/2 qd x 2d PREDNISONE 20 MG TABS 849705 PREDNISONE Inactive TERBINAFINE HCL 250 MG TABS 1 qDay TERBINAFINE HCL 250 MG TABS 322981 TERBINAFINE HCL Inactive Advance Directives Directive Description Start Date NO HEROIC MEASURES Immunizations Vaccine Administration Date Value Standard Description Combined [id number]-zhqkongsf Pertussis (dTpa) Vaccine - Booster 07/05 Boostrix [[id number]] tetanus toxoid, reduced diphtheria toxoid, and acellular [...] Panel - Chemistry sodium, serum 137 mmol/L 662-130 2048/07/25 potassium, serum 3.7 mmol/L 3.5-5.2 chloride, serum 102 mmol/L 98-107 carbon dioxide, venous blood 27.3 mmol/L 21.0-32.0 blood glucose 85 mg/dL 65-110 calcium, serum 8.5 mg/dL 8.5-10.1 urea nitrogen, blood 7 mg/dL 7-18 creatinine, serum 0.80 mg/dL 0.60-1.30 Lab Report: CBC, HGBA1C, Comp. Metabolic Panel - Chemistry hemoglobin A1C, blood, as % of total hemoglobin 5.3 % 4.3-6.0 sodium, serum 139 mmol/L 408-276 0366/02/24 potassium, serum 4.4 mmol/L 3.5-5.2 chloride, serum [...] Panel - Chemistry cholesterol, serum 118 mg/dL 024-301 1067/02/24 triglyceride, serum, fasting 141 mg/dL 30-200 HDL cholesterol, serum 20 mg/dL 32-96 LDL cholesterol, serum 70 mg/dL 0-130 Lab Report: Lipid Panel, Comp. Metabolic Panel, MICROALBUMIN, HGBA1C - Chemistry cholesterol, serum 172 mg/dL 113-140 9902/08/16 triglyceride, serum, fasting 267 mg/dL 30-200 HDL cholesterol, serum 22 mg/dL 32-96 LDL cholesterol, serum 97 mg/dL 0-130 sodium, serum 141 mmol/L 295-018 8441/08/16 potassium, serum 4.2 mmol/L 3.5-5.2 chloride, serum [...] Negative Encounters Code Encounter Date Provider Facility CPT-97987 Level 3 Est. Patient 14:54:10 CDT Ian Valdez MD [facility] CPT-40733 Level 4 Est. Patient 20:36:52 CDT Ian Valdez MD [facility] CPT-42234 Level 4 Est. Patient 11:14:30 FITTING ROOM OPERATOR Ian Vladez MD [facility] CPT-85319 Level 3 Est. Patient 19:08:34 FITTING ROOM OPERATOR Ian Valdez MD [facility] CPT-15796 Level 3 Est. Patient 13:17:39 FITTING ROOM OPERATOR Ian Valdez MD [facility] CPT-13404 Level 4 Est. Patient 18:56:10 CDT Ian Valdez MD [facility] CPT-60978 Level 4 Est. Patient 16:55:56 CDT Ian Valdez MD [facility] CPT-83903 Level 3 Est. Patient 11:27:07 CDT Ian Valdez MD [facility] CPT-94357 Level 3 Est. Patient 15:17:[address] [facility] CPT-96109 Level 4 Est. Patient 15:13:53 CDT Wellington Muniz PA [facility] CPT-24237 Level 3 Est. Patient 14:25:12 FITTING ROOM OPERATOR Ian Valdez MD [facility] CPT-25192 Level 3 Est. Patient 10:24:46 CDT Ian Valdez MD [facility] CPT-39860 Level 3 Est. Patient 15:34:19 CDT Ian Valdez MD [facility] CPT-83446 Level 3 Est. Patient 14:22:41 CDT Ian Valdez MD [facility] CPT-12595 Level 3 Est. Patient 15:07:22 FITTING ROOM OPERATOR Ian Valdez MD [facility] CPT-85163 Level 3 New Patient 09:06:43 FITTING ROOM OPERATOR Ian Valdez MD [facility] CPT-57381 Level 3 Est. Patient 15:09:00 FITTING ROOM OPERATOR Ian Valdez MD [facility] Procedures Code Procedure Name Date Entry Date Standard Description CPT-60195 UHCG (floor use only) 13:39:36 CDT CPT-77369 Nexplanon Placement 10:11:48 CDT CPT-J7307 Nexplanon (Implant) 10:11:48 CDT CPT-OV Office Visit 09:54:18 CDT CPT-20717 EKG Trac and Interp 16:50:19 CDT CPT-45877 Venipuncture Draw Fee 15:06:08 CDT CPT-J2930 Solu Medrol 125 mg (Methyl Prednisolone Sodium Succinate) 12:44:46 CDT CPT-J1055 Depo Provera 150 mg (Medroxyprogesterone) 12:44:46 CDT CPT-58139 Abx/Therapy Injection 12:44:46 CDT CPT-J1055 Depo Provera 150 mg (Medroxyprogesterone) 14:28:41 CDT CPT-J2930 Solu Medrol 125 mg (Methyl Prednisolone Sodium Succinate) 14:22:41 CDT CPT-07591 Administration single or combination vaccine inc oral 10 :08:06 CDT CPT-41286 Tdap 10:08:06 CDT CPT-G0402 Wlcm To Medicare Ex 22:17:30 CDT CPT-35362 Venipuncture Draw Fee 10:33:07 FITTING ROOM OPERATOR CPT-23646 Venipuncture Draw Fee 10:17:37 FITTING ROOM OPERATOR CPT-G[address] [facility] To Medicare 22:17:30 CDT
--- OUTSIDE RECORDS SUMMARY | 2018-07-17 22:12 | XMS REPORT | Clinical Summary ---
Author Author Admin, ARIAN Organization [facility] Address Unknown Phone Allergies, Adverse Reactions, [...] Ian Valdez MD IRREGULAR MENSES ICD-626.4 Inactive aIn Valdez MD ABDOMINAL CRAMPS ICD-789.00 Inactive Ian [...] CREA apply bid to rash TERBINAFINE HCL 12073485327 Active Ian Valdez MD Active TERBINAFINE HCL 250 MG TABS 1 qDay TERBINAFINE HCL 80929455795 No Longer Active Ian Valdez MD Active TOPAMAX 25 MG TABS 1 tab po qhs x 1 week, then take 2 tabs po qhs TOPIRAMATE 39883962460 Active Ian Valdez MD Active XANAX 0.25 MG TABS take 1 tab po bid prn anxiety. ALPRAZOLAM 11804312569 No Longer Active Ian Valdez MD Active FISH OIL 1000 MG CAPS 2 caps PO once daily at bedtime OMEGA-3 FATTY ACIDS 84718647517 No Longer Active Ian Valdez MD Active KLOR-CON M20 20 MEQ CR-TABS take 1 tab po qday with lasix POTASSIUM CHLORIDE GALILEO CR 77427013189 Active Ian Valdez MD Active LASIX 20 MG TAB 1 tablet by mouth daily prn swelling FUROSEMIDE 65390106686 Active Ina Valdez MD Active FLONASE 50 MCG/ACT SUSP 2 puffs in each nostril once daily at bedtime FLUTICASONE PROPIONATE 73636250764 Active Ian Valdez MD Active CVS MELATONIN 3 MG TABS 2 tabs PO at bedtime MELATONIN 86176289554 Active Ian Valdez MD Active PULMICORT FLEXHALER 180 MCG/ACT AEPB 2 INH BID BUDESONIDE 74234923673 No Longer Active Ian Valdez MD Active METFORMIN HCL 500 MG TB24 1 TAB PO Q HS METFORMIN HCL 36564428635 No Longer Active Ian Valdez MD Active CYCLOBENZAPRINE HCL 10 MG TABS 1 PO q 8 hrs PRN muscle spasm 2012 CYCLOBENZAPRINE HCL 19933109116 No Longer Active Ian Valdez MD Active AZITHROMYCIN 500 MG TABS 1 PO q day x 6 days AZITHROMYCIN 65604099850 No Longer Active Ian Valdez MD Active CIPRO 500 MG TAB 1 tablet by mouth twice daily CIPROFLOXACIN HCL 99128902725 No Longer Active Ian Valdez MD Active PREDNISONE 20 MG TABS 3 qd x 2d, 2 qd x 2d, 1 qd x 2d, 1/2 qd x 2d PREDNISONE 37099781593 No Longer Active Law FIGUEROA Active CELEXA 40 MG TABS 2 PO DAILY CITALOPRAM HYDROBROMIDE 94883596246 Active Ian Valdez MD Active OMEPRAZOLE 20 MG CPDR 1 tablet by mouth daily OMEPRAZOLE 20656951932 No Longer Active [place] FIGUEROA Active KLONOPIN 0.5 MG TABS 1 TABLET PO PRN CLONAZEPAM 93444315553 No Longer Active [place] FIGUEROA Active MOBIC 7.5 MG TABS 1 tablet by mouthonce a day MELOXICAM 53971272405 No Longer Active [place] FIGUEROA Active ZITHROMAX 1 GM PACK DIRECTED AZITHROMYCIN 12980400089 No Longer Active Ian Valdez MD Active ALBUTEROL SULFATE 0.083 % NEBU SOLN one vial per nebulizer every 4-6 hours as needed ALBUTEROL SULFATE 06350362918 Active Ian Valdez MD Active CHANTIX STARTING MONTH REBEKAH 0.5 MG X 11 & 1 MG X 42 TABS 0.5mg daily for 3 days , then 0.5mg BID for 4 days, then 1mg BID VARENICLINE TARTRATE 94274714420 No Longer Active Ian Valdez MD Active ZITHROMAX 1 GM PACK DIRECTED AZITHROMYCIN 53751160560 No Longer Active Ian Valdez MD Active AURALGAN 1.4-5.5 % SOLN BENZOCAINE-ANTIPYRINE 58737341203 No Longer Active Ian Valdez MD Active PREDNISONE 20 MG TAB 3 tabs daily for 3 days, 2 tab daily for 3 days, 1 tab daily for 2 days, then 1/2 tab dialy for 2 days PREDNISONE 56855868691 No Longer Active Ian Valdez MD Active SIMVASTATIN 40 MG TABS 1 TABLET PO Q HS SIMVASTATIN 17463229905 Active Ian Valdez MD Active SIMVASTATIN 80 MG TABS Take one by mouth daily SIMVASTATIN 47645888453 No Longer Active Ian Valdez MD Active PREDNISONE 20 MG TAB 2 tabs daily for 3 days, 1 tab daily for 3 days, 1/2 tab daily for 2 days PREDNISONE 47658255409 No Longer Active Ian Valdez MD Active ZITHROMAX 250 MG TAB 2 po today, then 1 po q days 2-5 AZITHROMYCIN 30285871037 No Longer Active Ian Valdez MD Active TRAZODONE HCL 100 MG TABS 2 TABS PO Q HS TRAZODONE HCL 87337808383 Active Ian Valdez MD Active ZITHROMAX 250 MG TAB 2 po today, then 1 po q days 2-5 AZITHROMYCIN 16216953815 No Longer Active Ian Valdez MD Active SIMVASTATIN 80 MG TABS Take one by mouth daily SIMVASTATIN 80 MG TABS 419321 SIMVASTATIN Inactive AURALGAN 1.4-5.5 % SOLN AURALGAN 1.4-5.5 % SOLN 0210191 BENZOCAINE-ANTIPYRINE Inactive ZITHROMAX 1 GM PACK DIRECTED ZITHROMAX 1 GM PACK 733991 AZITHROMYCIN Inactive CHANTIX STARTING MONTH REBEKAH 0.5 MG X 11 & 1 MG X 42 TABS 0.5mg daily for 3 days , then 0.5mg BID for 4 days, then 1mg BID CHANTIX STARTING MONTH REBEKAH 0.5 MG X 11 & 1 MG X 42 TABS VARENICLINE TARTRATE Inactive ZITHROMAX 1 GM PACK DIRECTED ZITHROMAX 1 GM PACK 070737 AZITHROMYCIN Inactive MOBIC 7.5 MG TABS 1 tablet by mouthonce a day MOBIC 7.5 MG TABS 741319 MELOXICAM Inactive KLONOPIN 0.5 MG TABS 1 TABLET PO PRN KLONOPIN 0.5 MG TABS 380620 CLONAZEPAM Inactive CIPRO 500 MG TAB 1 tablet by mouth twice daily CIPRO 500 MG TAB 489395 CIPROFLOXACIN HCL Inactive AZITHROMYCIN 500 MG TABS 1 PO q day x 6 days AZITHROMYCIN 500 MG TABS 8846205 AZITHROMYCIN Inactive CYCLOBENZAPRINE HCL 10 MG TABS 1 PO q 8 hrs PRN muscle spasm 2012 CYCLOBENZAPRINE HCL 10 MG TABS 265379 CYCLOBENZAPRINE HCL Inactive METFORMIN HCL 500 MG [...] bid prn anxiety. XANAX 0.25 MG TABS 577195 ALPRAZOLAM Inactive ZITHROMAX 250 MG TAB 2 po today, then 1 po q days 2-5 ZITHROMAX 250 MG TAB 3731964 AZITHROMYCIN Inactive ZITHROMAX 250 MG TAB 2 po today, then 1 po q days 2-5 ZITHROMAX 250 MG TAB 0359132 AZITHROMYCIN Inactive PREDNISONE 20 MG TAB 2 tabs daily for 3 days, 1 tab daily for 3 days, 1/2 tab daily for 2 days PREDNISONE 20 MG TAB 279826 PREDNISONE Inactive PREDNISONE 20 MG TAB 3 tabs daily for 3 days, 2 tab daily for 3 days, 1 tab daily for 2 days, then 1/2 tab dialy for 2 days PREDNISONE 20 MG TAB 783878 PREDNISONE Inactive OMEPRAZOLE 20 MG CPDR 1 tablet by mouth daily OMEPRAZOLE 20 MG CPDR 202175 OMEPRAZOLE Inactive PREDNISONE 20 MG TABS 3 qd x 2d, 2 qd x 2d, 1 qd x 2d, 1/2 qd x 2d PREDNISONE 20 MG TABS 500015 PREDNISONE Inactive TERBINAFINE HCL 250 MG TABS 1 qDay TERBINAFINE HCL 250 MG TABS 324947 TERBINAFINE HCL Inactive Advance Directives Directive Description Start Date NO HEROIC MEASURES Immunizations Vaccine Administration Date Value Standard Description Combined Iamefckajx-Exxgobb-thmkelirl Pertussis (dTpa) Vaccine - Booster 07/05 Boostrix [[id number]] tetanus toxoid, reduced diphtheria toxoid, and acellular [...] Panel - Chemistry sodium, serum 137 mmol/L 429-842 6189/07/25 potassium, serum 3.7 mmol/L 3.5-5.2 chloride, serum 102 mmol/L 98-107 carbon dioxide, venous blood 27.3 mmol/L 21.0-32.0 blood glucose 85 mg/dL 65-110 calcium, serum 8.5 mg/dL 8.5-10.1 urea nitrogen, blood 7 mg/dL 7-18 creatinine, serum 0.80 mg/dL 0.60-1.30 Lab Report: CBC, HGBA1C, Comp. Metabolic Panel - Chemistry hemoglobin A1C, blood, as % of total hemoglobin 5.3 % 4.3-6.0 sodium, serum 139 mmol/L 976-792 6100/02/24 potassium, serum 4.4 mmol/L 3.5-5.2 chloride, serum [...] Panel - Chemistry cholesterol, serum 118 mg/dL 377-951 4395/02/24 triglyceride, serum, fasting 141 mg/dL 30-200 HDL cholesterol, serum 20 mg/dL 32-96 LDL cholesterol, serum 70 mg/dL 0-130 Lab Report: Lipid Panel, Comp. Metabolic Panel, MICROALBUMIN, HGBA1C - Chemistry cholesterol, serum 172 mg/dL 345-862 1558/08/16 triglyceride, serum, fasting 267 mg/dL 30-200 HDL cholesterol, serum 22 mg/dL 32-96 LDL cholesterol, serum 97 mg/dL 0-130 sodium, serum 141 mmol/L 500-176 0179/08/16 potassium, serum 4.2 mmol/L 3.5-5.2 chloride, serum [...] Negative Encounters Code Encounter Date Provider Facility CPT-45807 Level 3 Est. Patient 14:54:10 CDT Ian Valdez MD [facility] CPT-92427 Level 4 Est. Patient 20:36:52 CDT Ian Valdez MD [facility] CPT-94814 Level 4 Est. Patient 11:14:30 LEAF TINNER Ian Valdez MD [facility] CPT-15161 Level 3 Est. Patient 19:08:34 LEAF TINNER Ian Valdez MD [facility] CPT-10254 Level 3 Est. Patient 13:17:39 LEAF TINNER Ian Valdez MD [facility] CPT-35809 Level 4 Est. Patient 18:56:10 CDT Ian Valdez MD [facility] CPT-80815 Level 4 Est. Patient 16:55:56 CDT Ian Valdez MD [facility] CPT-47432 Level 3 Est. Patient 11:27:07 CDT Ian Valdez MD [facility] CPT-14363 Level 3 Est. Patient 15:17:44 CDT Law Rosas [facility] CPT-87581 Level 4 Est. Patient 15:13:53 CDT Wellington Muniz PA [facility] CPT-51363 Level 3 Est. Patient 14:25:12 LEAF TINNER Ian Valdez MD [facility] CPT-02721 Level 3 Est. Patient 10:24:46 CDT Ian Valdez MD [facility] CPT-76017 Level 3 Est. Patient 15:34:19 CDT Ian Valdez MD [facility] CPT-79430 Level 3 Est. Patient 14:22:41 CDT Ian Valdez MD [facility] CPT-44897 Level 3 Est. Patient 15:07:22 LEAF TINNER Ian Valdez MD [facility] CPT-68188 Level 3 New Patient 09:06:43 LEAF TINNER Ian Valdez MD [facility] CPT-69738 Level 3 Est. Patient 15:09:00 LEAF TINNER Ian Valdez MD [facility] Procedures Code Procedure Name Date Entry Date Standard Description CPT-40303 UHCG (floor use only) 13:39:36 CDT CPT-86736 Nexplanon Placement 10:11:48 CDT CPT-J7307 Nexplanon (Implant) 10:11:48 CDT CPT-OV Office Visit 09:54:18 CDT CPT-40949 EKG Trac and Interp 16:50:19 CDT CPT-42759 Venipuncture Draw Fee 15:06:08 CDT CPT-J2930 Solu Medrol 125 mg (Methyl Prednisolone Sodium Succinate) 12:44:46 CDT CPT-J1055 Depo Provera 150 mg (Medroxyprogesterone) 12:44:46 CDT CPT-92137 Abx/Therapy Injection 12:44:46 CDT CPT-J1055 Depo Provera 150 mg (Medroxyprogesterone) 14:28:41 CDT CPT-J2930 Solu Medrol 125 mg (Methyl Prednisolone Sodium Succinate) 14:22:41 CDT CPT-35420 Administration single or combination vaccine inc oral 10 :08:06 CDT CPT-40686 Tdap 10:08:06 CDT CPT-G0402 Wlcm To Medicare Ex 22:17:30 CDT CPT-77754 Venipuncture Draw Fee 10:33:07 LEAF TINNER CPT-56545 Venipuncture Draw Fee 10:17:37 LEAF TINNER CPT-G0403 EKG [facility] To Medicare 22:17:30 CDT
--- OUTSIDE RECORDS SUMMARY | 2018-07-17 22:13 | XMS REPORT | Clinical Summary ---
Author Author Admin, ARIAN Organization [facility] Address Unknown Phone Allergies, Adverse Reactions, [...] KNEE PAIN, RIGHT, CHRONIC 719.46 Active Ian aVldez MD Pain in joint involving lower leg [...] MD FAMILY HISTORY OF ALCOHOLISM ICD-V61.41 Inactive Ina Valdez MD [facility] DIABETES ICD-V18.0 Inactive Ian [...] CREA apply bid to rash TERBINAFINE HCL 08292530245 Active Ian Valdez MD Active TERBINAFINE HCL 250 MG TABS 1 qDay TERBINAFINE HCL 61104403825 No Longer Active Ian Valdez MD Active TOPAMAX 25 MG TABS 1 tab po qhs x 1 week, then take 2 tabs po qhs TOPIRAMATE 19000555436 Active Ian Valdez MD Active XANAX 0.25 MG TABS take 1 tab po bid prn anxiety. ALPRAZOLAM 92492023814 No Longer Active Ian Valdez MD Active FISH OIL 1000 MG CAPS 2 caps PO once daily at bedtime OMEGA-3 FATTY ACIDS 21641348754 No Longer Active Ian Valdez MD Active KLOR-CON M20 20 MEQ CR-TABS take 1 tab po qday with lasix POTASSIUM CHLORIDE GALILEO CR 88256948302 Active Ian Valdez MD Active LASIX 20 MG TAB 1 tablet by mouth daily prn swelling FUROSEMIDE 40618453164 Active Ian Valdez MD Active FLONASE 50 MCG/ACT SUSP 2 puffs in each nostril once daily at bedtime FLUTICASONE PROPIONATE 02881763980 Active Ian Valdez MD Active [facility]S MELATONIN 3 MG TABS 2 tabs PO at bedtime MELATONIN 48601663543 Active Ian Valdez MD Active PULMICORT FLEXHALER 180 MCG/ACT AEPB 2 INH BID BUDESONIDE 05052391086 No Longer Active Ian Valdez MD Active METFORMIN HCL 500 MG TB24 1 TAB PO Q HS METFORMIN HCL 97617724478 No Longer Active Ian Valdez MD Active CYCLOBENZAPRINE HCL 10 MG TABS 1 PO q 8 hrs PRN muscle spasm 2012 CYCLOBENZAPRINE HCL 29460500988 No Longer Active Ian Valdez MD Active AZITHROMYCIN 500 MG TABS 1 PO q day x 6 days AZITHROMYCIN 68692504861 No Longer Active Ian Valdez MD Active CIPRO 500 MG TAB 1 tablet by mouth twice daily CIPROFLOXACIN HCL 09074084772 No Longer Active Ian Valdez MD Active PREDNISONE 20 MG TABS 3 qd x 2d, 2 qd x 2d, 1 qd x 2d, 1/2 qd x 2d PREDNISONE 28676109362 No Longer Active Law FIGUEROA Active CELEXA 40 MG TABS 2 PO DAILY CITALOPRAM HYDROBROMIDE 42051935335 Active Ian Valdez MD Active OMEPRAZOLE 20 MG CPDR 1 tablet by mouth daily OMEPRAZOLE 90890348366 No Longer Active [place] FIGUEROA Active KLONOPIN 0.5 MG TABS 1 TABLET PO PRN CLONAZEPAM 68700571907 No Longer Active [place] FIGUEROA Active MOBIC 7.5 MG TABS 1 tablet by mouthonce a day MELOXICAM 71320790107 No Longer Active [place] FIGUEROA Active ZITHROMAX 1 GM PACK DIRECTED AZITHROMYCIN 51733754096 No Longer Active Ian Valdez MD Active ALBUTEROL SULFATE 0.083 % NEBU SOLN one vial per nebulizer every 4-6 hours as needed ALBUTEROL SULFATE 55159255000 Active Ian Valdez MD Active CHANTIX STARTING MONTH REBEKAH 0.5 MG X 11 & 1 MG X 42 TABS 0.5mg daily for 3 days , then 0.5mg BID for 4 days, then 1mg BID VARENICLINE TARTRATE 07460045481 No Longer Active Ian Valdez MD Active ZITHROMAX 1 GM PACK DIRECTED AZITHROMYCIN 33857096526 No Longer Active Ian Valdez MD Active AURALGAN 1.4-5.5 % SOLN BENZOCAINE-ANTIPYRINE 77901557651 No Longer Active Ian Valdez MD Active PREDNISONE 20 MG TAB 3 tabs daily for 3 days, 2 tab daily for 3 days, 1 tab daily for 2 days, then 1/2 tab dialy for 2 days PREDNISONE 14695009483 No Longer Active Ian Valdez MD Active SIMVASTATIN 40 MG TABS 1 TABLET PO Q HS SIMVASTATIN 93760089066 Active Ian Valdez MD Active SIMVASTATIN 80 MG TABS Take one by mouth daily SIMVASTATIN 85010063984 No Longer Active Ian Valdez MD Active PREDNISONE 20 MG TAB 2 tabs daily for 3 days, 1 tab daily for 3 days, 1/2 tab daily for 2 days PREDNISONE 39793862599 No Longer Active Ian Valdez MD Active ZITHROMAX 250 MG TAB 2 po today, then 1 po q days 2-5 AZITHROMYCIN 25576733703 No Longer Active Ian Valdez MD Active TRAZODONE HCL 100 MG TABS 2 TABS PO Q HS TRAZODONE HCL 20753722801 Active Ian Valdez MD Active ZITHROMAX 250 MG TAB 2 po today, then 1 po q days 2-5 AZITHROMYCIN 98193415444 No Longer Active Ian Valdez MD Active SIMVASTATIN 80 MG TABS Take one by mouth daily SIMVASTATIN 80 MG TABS 098196 SIMVASTATIN Inactive AURALGAN 1.4-5.5 % SOLN AURALGAN 1.4-5.5 % SOLN 7279846 BENZOCAINE-ANTIPYRINE Inactive ZITHROMAX 1 GM PACK DIRECTED ZITHROMAX 1 GM PACK 897646 AZITHROMYCIN Inactive CHANTIX STARTING MONTH REBEKAH 0.5 MG X 11 & 1 MG X 42 TABS 0.5mg daily for 3 days , then 0.5mg BID for 4 days, then 1mg BID CHANTIX STARTING MONTH REBEKAH 0.5 MG X 11 & 1 MG X 42 TABS VARENICLINE TARTRATE Inactive ZITHROMAX 1 GM PACK DIRECTED ZITHROMAX 1 GM PACK 770382 AZITHROMYCIN Inactive MOBIC 7.5 MG TABS 1 tablet by mouthonce a day MOBIC 7.5 MG TABS 417576 MELOXICAM Inactive KLONOPIN 0.5 MG TABS 1 TABLET PO PRN KLONOPIN 0.5 MG TABS 794949 CLONAZEPAM Inactive CIPRO 500 MG TAB 1 tablet by mouth twice daily CIPRO 500 MG TAB 741276 CIPROFLOXACIN HCL Inactive AZITHROMYCIN 500 MG TABS 1 PO q day x 6 days AZITHROMYCIN 500 MG TABS 7966757 AZITHROMYCIN Inactive CYCLOBENZAPRINE HCL 10 MG TABS 1 PO q 8 hrs PRN muscle spasm 2012 CYCLOBENZAPRINE HCL 10 MG TABS 820967 CYCLOBENZAPRINE HCL Inactive METFORMIN HCL 500 MG [...] bid prn anxiety. XANAX 0.25 MG TABS 231964 ALPRAZOLAM Inactive ZITHROMAX 250 MG TAB 2 po today, then 1 po q days 2-5 ZITHROMAX 250 MG TAB 0161192 AZITHROMYCIN Inactive ZITHROMAX 250 MG TAB 2 po today, then 1 po q days 2-5 ZITHROMAX 250 MG TAB 2670974 AZITHROMYCIN Inactive PREDNISONE 20 MG TAB 2 tabs daily for 3 days, 1 tab daily for 3 days, 1/2 tab daily for 2 days PREDNISONE 20 MG TAB 194163 PREDNISONE Inactive PREDNISONE 20 MG TAB 3 tabs daily for 3 days, 2 tab daily for 3 days, 1 tab daily for 2 days, then 1/2 tab dialy for 2 days PREDNISONE 20 MG TAB 452258 PREDNISONE Inactive OMEPRAZOLE 20 MG CPDR 1 tablet by mouth daily OMEPRAZOLE 20 MG CPDR 485111 OMEPRAZOLE Inactive PREDNISONE 20 MG TABS 3 qd x 2d, 2 qd x 2d, 1 qd x 2d, 1/2 qd x 2d PREDNISONE 20 MG TABS 983963 PREDNISONE Inactive TERBINAFINE HCL 250 MG TABS 1 qDay TERBINAFINE HCL 250 MG TABS 975889 TERBINAFINE HCL Inactive Advance Directives Directive Description Start Date NO HEROIC MEASURES Immunizations Vaccine Administration Date Value Standard Description Boostrix (Tetanus toxoid, reduced diphtheria toxoid and acellular pertussis vaccine, adsorbed), booster Boostrix [[id number]] tetanus toxoid, reduced diphtheria toxoid, and acellular pertussis vaccine, adsorbed Vital Signs Date Name Value Unit Range Description blood pressure, diastolic - 8462-4 80 mm[Hg] [...] E&M - 3141-9 222 [lb_av] Weight Measured blood pressure, diastolic - 8462-4 98 mm[Hg] BP [place] blood pressure, systolic - 8480-6 148 mm[Hg] BP sys height E&M - 8302-2 64 [in_us] Bdy height pulse rate E&M - 8867-4 93 /min Heart rate temperature E&M 98.0 [degF] Body temperature weight E&M - 3141-9 223 [lb_av] Weight Measured blood pressure, diastolic - 8462-4 82 mm[Hg] BP aguillon blood pressure, systolic - 8480-6 130 mm[Hg] BP sys height E&M - 8302-2 64 [in_us] Bdy height pulse rate E&M - 8867-4 92 /min Heart rate temperature E&M 98.0 [degF] Body temperature weight E&M - 3141-9 [...] 5.3 % 4.3-6.0 sodium, serum 139 mmol/L 410-845 0777/02/24 potassium, serum 4.4 mmol/L 3.5-5.2 chloride, serum [...] Panel - Chemistry cholesterol, serum 118 mg/dL 511-585 1388/02/24 triglyceride, serum, fasting 141 mg/dL 30-200 HDL [...] 97 mg/dL 0-130 sodium, serum 141 mmol/L 400-624 6519/08/16 potassium, serum 4.2 mmol/L 3.5-5.2 cholesterol, serum 172 mg/dL 113-837 2194/08/16 chloride, serum 104 mmol/L 98-107 carbon dioxide, [...] Negative Encounters Code Encounter Date Provider Facility CPT-73045 Level 3 Est. Patient 14:54:10 CDT Ian Valdez MD [facility] CPT-65672 Level 4 Est. Patient 20:36:52 CDT Ian Valdez MD [facility] CPT-93341 Level 4 Est. Patient 11:14:30 MANAGEMENT SUPERVISOR Ian Valdez MD [facility] CPT-37754 Level 3 Est. Patient 19:08:34 MANAGEMENT SUPERVISOR Ian Valdez MD [facility] CPT-98630 Level 3 Est. Patient 13:17:39 MANAGEMENT SUPERVISOR Ian Valdez MD [facility] CPT-41058 Level 4 Est. Patient 18:56:10 CDT Ian Valdez MD [facility] CPT-20076 Level 4 Est. Patient 16:55:56 CDT Ian Valdez MD [facility] CPT-40667 Level 3 Est. Patient 11:27:07 CDT Ian Valdez MD [facility] CPT-61491 Level 3 Est. Patient 15:17:44 CDT Law Rosas [facility] CPT-15509 Level 4 Est. Patient 15:13:53 CDT Wellington Muniz [facility] CPT-37918 Level 3 Est. Patient 14:25:12 MANAGEMENT SUPERVISOR Ian Valedz MD [facility] CPT-43581 Level 3 Est. Patient 10:24:46 CDT Ian Valdez MD [facility] CPT-92291 Level 3 Est. Patient 15:34:19 CDT Ian Valdez MD [facility] CPT-62728 Level 3 Est. Patient 14:22:41 CDT Ian Valdez MD [facility] CPT-98630 Level 3 Est. Patient 15:07:22 MANAGEMENT SUPERVISOR Ian Valdez MD [facility] CPT-48162 Level 3 New Patient 09:06:43 MANAGEMENT SUPERVISOR Ian Valdez MD [facility] CPT-54329 Level 3 Est. Patient 15:09:00 MANAGEMENT SUPERVISOR Ian Valdez MD [facility] Procedures Code Procedure Name Date Entry Date Standard Description CPT-33476 UHCG (floor use only) 13:39:36 CDT CPT-74869 Nexplanon Placement 10:11:48 CDT CPT-J7307 Nexplanon (Implant) 10:11:48 CDT CPT-OV Office Visit 09:54:18 CDT CPT-57889 EKG Trac and Interp 16:50:19 CDT CPT-31763 Venipuncture Draw Fee 15:06:08 CDT CPT-J2930 Solu Medrol 125 mg (Methyl Prednisolone Sodium Succinate) 12:44:46 CDT CPT-J1055 Depo Provera 150 mg (Medroxyprogesterone) 12:44:46 CDT CPT-97552 Abx/Therapy Injection 12:44:46 CDT CPT-J1055 Depo Provera 150 mg (Medroxyprogesterone) 14:28:41 CDT CPT-J2930 Solu Medrol 125 mg (Methyl Prednisolone Sodium Succinate) 14:22:41 CDT CPT-31683 Administration single or combination vaccine inc oral 10 :08:06 CDT CPT-85970 Tdap 10:08:06 CDT CPT-G0402 Wlcm To Medicare Ex 22:17:30 CDT CPT-34681 Venipuncture Draw Fee 10:33:07 MANAGEMENT SUPERVISOR CPT-50843 Venipuncture Draw Fee 10:17:37 MANAGEMENT SUPERVISOR CPT-G0403 EKG Wlc To Medicare 22:17:30 CDT
--- OUTSIDE RECORDS SUMMARY | 2018-07-17 22:15 | XMS REPORT | Clinical Summary ---
Author Author Admin, ARIAN Organization [facility] Address Unknown Phone Unavailable Allergies, Adverse [...] MULTIVITAMINS CAPS 1 tablet daily MULTIPLE VITAMIN 65911720054 Active Juan Smith MD Active CYCLOBENZAPRINE HCL 10 MG TABS 1/2 - 1 tab by mouth three times daily if needed for spasms/pain CYCLOBENZAPRINE HCL 94710310076 Active Eva Ferrara MD PhD Active GLUCOPHAGE 500 MG TABS 1 tab BID with morning and night meals METFORMIN HCL 38549955223 Active Eva Ferrara MD PhD Active PROGESTERONE MICRONIZED 100 MG CAPS 2 caps daily day 16 thru 25 of cycle 2013 PROGESTERONE MICRONIZED 58597206175 Active Eva Ferrara MD PhD Active TERBINAFINE HCL 1 % CREA Apply bid to rash TERBINAFINE HCL 43441994651 No Longer Active Eva Ferrara MD PhD Active TOPAMAX 25 MG TABS 1 tab po qhs x 1 week, then take 2 tabs po qhs TOPIRAMATE 41049002944 No Longer Active Thom Gilbert MD Active ULTRAM 50 MG TAB take 1 tab po q6hrs prn pain TRAMADOL HCL 71468754281 Active Ian Valdez MD Active LAMISIL AT 1 % CREA apply bid to rash TERBINAFINE HCL 24231272242 No Longer Active Thom Gilbert MD Active TERBINAFINE HCL 250 MG TABS 1 qDay TERBINAFINE HCL 96477008020 No Longer Active Ian Valdez MD Active XANAX 0.25 MG TABS take 1 tab po bid prn anxiety. ALPRAZOLAM 71392391951 No Longer Active Ian Valdez MD Active FISH OIL 1000 MG CAPS 2 caps PO once daily at bedtime OMEGA-3 FATTY ACIDS 42121212111 No Longer Active Ian Valdez MD Active KLOR-CON M20 20 MEQ CR-TABS take 1 tab po qday with lasix POTASSIUM CHLORIDE GALILEO CR 44608843370 Active Ian Valdez MD Active LASIX 20 MG TAB 1 tablet by mouth daily prn swelling FUROSEMIDE 19114658587 Active Ina Valdez MD Active FLONASE 50 MCG/ACT SUSP 2 puffs in each nostril once daily at bedtime FLUTICASONE PROPIONATE 45267456005 Active Ian Valdez MD Active CVS MELATONIN 3 MG TABS 2 tabs PO at bedtime MELATONIN 22827773327 Active Ian Valdez MD Active PULMICORT FLEXHALER 180 MCG/ACT AEPB 2 INH BID BUDESONIDE 94407541798 No Longer Active Ian Valdez MD Active METFORMIN HCL 500 MG TB24 1 TAB PO Q HS METFORMIN HCL 40496946085 No Longer Active Ian Valdez MD Active CYCLOBENZAPRINE HCL 10 MG TABS 1 PO q 8 hrs PRN muscle spasm 2012 CYCLOBENZAPRINE HCL 68476207469 No Longer Active Ian Valdez MD Active AZITHROMYCIN 500 MG TABS 1 PO q day x 6 days AZITHROMYCIN 61194755077 No Longer Active Ian Valdez MD Active CIPRO 500 MG TAB 1 tablet by mouth twice daily CIPROFLOXACIN HCL 11708030813 No Longer Active Ian Valdez MD Active PREDNISONE 20 MG TABS 3 qd x 2d, 2 qd x 2d, 1 qd x 2d, 1/2 qd x 2d PREDNISONE 42353154504 No Longer Active Law FIGUEROA Active CELEXA 40 MG TABS 2 PO DAILY CITALOPRAM HYDROBROMIDE 41548545374 Active Ian Valdze MD Active OMEPRAZOLE 20 MG CPDR 1 tablet by mouth daily OMEPRAZOLE 43304249967 No Longer Active [place] FIGUEROA Active KLONOPIN 0.5 MG TABS 1 TABLET PO PRN CLONAZEPAM 75634503956 No Longer Active [place] FIGUEROA Active MOBIC 7.5 MG TABS 1 tablet by mouthonce a day MELOXICAM 92981810091 No Longer Active [place] FIGUEROA Active ZITHROMAX 1 GM PACK DIRECTED AZITHROMYCIN 70396892081 No Longer Active Ian Valdez MD Active ALBUTEROL SULFATE 0.083 % NEBU SOLN one vial per nebulizer every 4-6 hours as needed ALBUTEROL SULFATE 72696477121 Active Ian Valdez MD Active CHANTIX STARTING MONTH REBEKAH 0.5 MG X 11 & 1 MG X 42 TABS 0.5mg daily for 3 days , then 0.5mg BID for 4 days, then 1mg BID VARENICLINE TARTRATE 67984939390 No Longer Active Ian Valdez MD Active ZITHROMAX 1 GM PACK DIRECTED AZITHROMYCIN 07876449984 No Longer Active Ian Valdez MD Active AURALGAN 1.4-5.5 % SOLN BENZOCAINE-ANTIPYRINE 39074645674 No Longer Active Ian Valdez MD Active PREDNISONE 20 MG TAB 3 tabs daily for 3 days, 2 tab daily for 3 days, 1 tab daily for 2 days, then 1/2 tab dialy for 2 days PREDNISONE 39263412131 No Longer Active Ian Valdez MD Active SIMVASTATIN 40 MG TABS 1 TABLET PO Q HS SIMVASTATIN 28736359015 Active Ian Valdez MD Active SIMVASTATIN 80 MG TABS Take one by mouth daily SIMVASTATIN 35838834386 No Longer Active Ian Valdez MD Active PREDNISONE 20 MG TAB 2 tabs daily for 3 days, 1 tab daily for 3 days, 1/2 tab daily for 2 days PREDNISONE 02919580100 No Longer Active Ian Valdez MD Active ZITHROMAX 250 MG TAB 2 po today, then 1 po q days 2-5 AZITHROMYCIN 65183962401 No Longer Active Ian Valdez MD Active TRAZODONE HCL 100 MG TABS 2 TABS PO Q HS TRAZODONE HCL 22150506347 Active Ian Valdez MD Active ZITHROMAX 250 MG TAB 2 po today, then 1 po q days 2-5 AZITHROMYCIN 33898192306 No Longer Active Ian Valdez MD Active SIMVASTATIN 80 MG TABS Take one by mouth daily SIMVASTATIN 80 MG TABS 774767 SIMVASTATIN Inactive AURALGAN 1.4-5.5 % SOLN AURALGAN 1.4-5.5 % SOLN BENZOCAINE-ANTIPYRINE Inactive ZITHROMAX 1 GM PACK DIRECTED ZITHROMAX 1 GM PACK 221846 AZITHROMYCIN Inactive CHANTIX STARTING MONTH REBEKAH 0.5 MG X 11 & 1 MG X 42 TABS 0.5mg daily for 3 days , then 0.5mg BID for 4 days, then 1mg BID CHANTIX STARTING MONTH REBEKAH 0.5 MG X 11 & 1 MG X 42 TABS VARENICLINE TARTRATE Inactive ZITHROMAX 1 GM PACK DIRECTED ZITHROMAX 1 GM PACK 898934 AZITHROMYCIN Inactive MOBIC 7.5 MG TABS 1 tablet by mouthonce a day MOBIC 7.5 MG TABS 465162 MELOXICAM Inactive KLONOPIN 0.5 MG TABS 1 TABLET PO PRN KLONOPIN 0.5 MG TABS 864940 CLONAZEPAM Inactive CIPRO 500 MG TAB 1 tablet by mouth twice daily CIPRO 500 MG TAB 563004 CIPROFLOXACIN HCL Inactive AZITHROMYCIN 500 MG TABS 1 PO q day x 6 days AZITHROMYCIN 500 MG TABS 5952882 AZITHROMYCIN Inactive CYCLOBENZAPRINE HCL 10 MG TABS 1 PO q 8 hrs PRN muscle spasm 2012 CYCLOBENZAPRINE HCL 10 MG TABS 241374 CYCLOBENZAPRINE HCL Inactive METFORMIN HCL 500 MG [...] bid prn anxiety. XANAX 0.25 MG TABS 232736 ALPRAZOLAM Inactive LAMISIL AT 1 % CREA apply bid to rash LAMISIL AT 1 % CREA 681766 TERBINAFINE HCL Inactive TOPAMAX 25 MG TABS 1 tab po qhs x 1 week, then take 2 tabs po qhs TOPAMAX 25 MG TABS 041446 TOPIRAMATE Inactive TERBINAFINE HCL 1 % CREA Apply bid to rash TERBINAFINE HCL 1 % CREA 951587 TERBINAFINE HCL Inactive ZITHROMAX 250 MG TAB 2 po today, then 1 po q days 2-5 ZITHROMAX 250 MG TAB 3630742 AZITHROMYCIN Inactive ZITHROMAX 250 MG TAB 2 po today, then 1 po q days 2-5 ZITHROMAX 250 MG TAB 8967707 AZITHROMYCIN Inactive PREDNISONE 20 MG TAB 2 tabs daily for 3 days, 1 tab daily for 3 days, 1/2 tab daily for 2 days PREDNISONE 20 MG TAB 496807 PREDNISONE Inactive PREDNISONE 20 MG TAB 3 tabs daily for 3 days, 2 tab daily for 3 days, 1 tab daily for 2 days, then 1/2 tab dialy for 2 days PREDNISONE 20 MG TAB 300002 PREDNISONE Inactive OMEPRAZOLE 20 MG CPDR 1 tablet by mouth daily OMEPRAZOLE 20 MG CPDR 141854 OMEPRAZOLE Inactive PREDNISONE 20 MG TABS 3 qd x 2d, 2 qd x 2d, 1 qd x 2d, 1/2 qd x 2d PREDNISONE 20 MG TABS 859031 PREDNISONE Inactive TERBINAFINE HCL 250 MG TABS 1 qDay TERBINAFINE HCL 250 MG TABS 189307 TERBINAFINE HCL Inactive Advance Directives Directive Description Start Date NO HEROIC MEASURES Immunizations Vaccine Administration Date Value Standard Description Boostrix (Tetanus toxoid, reduced diphtheria toxoid and acellular pertussis vaccine, adsorbed), booster Boostrix [[id number]] tetanus toxoid, reduced diphtheria toxoid, and acellular [...] 5.3 % 4.3-6.0 sodium, serum 139 mmol/L 483-711 9591/02/24 potassium, serum 4.4 mmol/L 3.5-5.2 chloride, serum [...] 1.44 m[iU]/mL 0.36-3.74 cholesterol, serum 144 mg/dL 623-517 8770/11/19 triglyceride, serum, fasting 172 mg/dL 30-200 HDL cholesterol, serum 30 mg/dL 32-96 LDL cholesterol, serum 80 mg/dL 0-130 sodium, serum 137 mmol/L 024-340 6528/11/19 potassium, serum 4.1 mmol/L 3.5-5.2 chloride, serum 100 mmol/L 98-107 carbon dioxide, venous blood 26.9 mmol/L 21.0-32.0 Lab Report: Lipid Panel - Chemistry cholesterol, serum 118 mg/dL 087-031 9041/02/24 triglyceride, serum, fasting 141 mg/dL 30-200 HDL cholesterol, serum 20 mg/dL 32-96 LDL cholesterol, serum 70 mg/dL 0-130 Office Visit: Consult infertility - Chemistry human chorionic gonadotropin, urine, qualitative (urine test) Negative Encounters Code Encounter Date Provider Facility CPT-44668 Level 3 Est. Patient 15:32:41 METAL TANK ERECTOR Juan Smith MD [facility] CPT-46999 Level 3 Est. Patient 14:45:01 CDT Eva Ferrara MD PhD [facility] CPT-56337 Level 3 Est. Patient 14:54:10 CDT Ian Valdez MD [facility]-84300 Level 4 Est. Patient 20:36:52 CDT Ian Valdez MD [facility]-33700 Level 4 Est. Patient 11:14:30 METAL TANK ERECTOR Ian Valdez MD [facility]-71013 Level 3 Est. Patient 19:08:34 METAL TANK ERECTOR Ian Valdez MD [facility]-85045 Level 3 Est. Patient 13:17:39 METAL TANK ERECTOR Ian Valdez MD [facility]-89887 Level 4 Est. Patient 18:56:10 CDT Ian Valdez MD [facility]-07890 Level 4 Est. Patient 16:55:56 CDT Ian Valdez MD [facility]-62900 Level 3 Est. Patient 11:27:07 CDT Ian Valdez MD [facility]-95528 Level 3 Est. Patient 15:17:44 CDT Law Rosas [facility]-13680 Level 4 Est. Patient 15:13:53 CDT Wellington Muniz [facility]-71015 Level 3 Est. Patient 14:25:12 METAL TANK ERECTOR Ian Valdez MD [facility]-24045 Level 3 Est. Patient 10:24:46 CDT Ian Valdez MD [facility]-97688 Level 3 Est. Patient 15:34:19 CDT Ian Valdez MD [facility]-99831 Level 3 Est. Patient 14:22:41 CDT Ian Valdez MD [facility]-20447 Level 3 Est. Patient 15:07:22 METAL TANK ERECTOR Ian Valdez MD [facility] CPT-69884 Level 3 New Patient 09:06:43 METAL TANK ERECTOR Ian Valdez MD [facility] CPT-23740 Level 3 Est. Patient 15:09:00 METAL TANK ERECTOR Ian Valdez MD [facility] Procedures Code Procedure Name Date Entry Date Standard Description CPT-OV Office Visit 15:49:26 METAL TANK ERECTOR CPT-J1885 Toradol 60 mg (Ketorolac) 15:37:32 CDT CPT-33906 Abx/Therapy Injection 15:37:32 CDT CPT-J1885 Toradol 60 mg (Ketorolac) 14:45:01 CDT CPT-OV Office Visit 15:19:52 CDT CPT-OV Office Visit 10:41:01 CDT CPT-25762 Core biop breast wo imaging 16:50:06 CDT CPT-OV Office Visit 16:50:05 CDT CPT-51024 UHCG (floor use only) 13:39:36 CDT CPT-28636 Nexplanon Placement 10:11:48 CDT CPT-J7307 Nexplanon (Implant) 10:11:48 CDT CPT-OV Office Visit 09:54:18 CDT CPT-76652 EKG Trac and Interp 16:50:19 CDT CPT-53544 Venipuncture Draw Fee 15:06:08 CDT CPT-J2930 Solu Medrol 125 mg (Methyl Prednisolone Sodium Succinate) 12:44:46 CDT CPT-J1055 Depo Provera 150 mg (Medroxyprogesterone) 12:44:46 CDT CPT-88757 Abx/Therapy Injection 12:44:46 CDT CPT-J1055 Depo Provera 150 mg (Medroxyprogesterone) 14:28:41 CDT CPT-J2930 Solu Medrol 125 mg (Methyl Prednisolone Sodium Succinate) 14:22:41 CDT CPT-25899 Administration single or combination vaccine inc oral 10 :08:06 CDT CPT-74756 Tdap 10:08:06 CDT CPT-G0402 Wlcm To Medicare Ex 22:17:30 CDT CPT-92563 Venipuncture Draw Fee 10:33:07 METAL TANK ERECTOR CPT-39704 Venipuncture Draw Fee 10:17:37 METAL TANK ERECTOR CPT-G0403 EKG Wl To Medicare 22:17:30 CDT
--- OUTSIDE RECORDS SUMMARY | 2018-07-17 22:16 | XMS REPORT ---
Author Author [email or web address] Medical Staff Organization [facility] Address [address] [place], [place] [address] Phone [phone] Care Team Providers Care Field Installation Technician Name Role Phone FARHAD SETHI MD PP [phone] Summary purpose TRANSITION OF CARE AUTO GENERATION [...]
--- OUTSIDE RECORDS SUMMARY | 2018-07-17 22:16 | XMS REPORT | Clinical Summary ---
Author Author Admin, ARIAN Organization [facility] Address Unknown Phone Unavailable Allergies, Adverse [...] daily if needed for spasms/pain CYCLOBENZAPRINE HCL 26966505254 Active Eva Ferrara MD PhD Active GLUCOPHAGE 500 MG TABS 1 tab BID with morning and night meals METFORMIN HCL 37522377601 Active Eva Ferrara MD PhD Active PROGESTERONE MICRONIZED 100 MG CAPS 2 caps daily day 16 thru 25 of cycle 2013 PROGESTERONE MICRONIZED 42134987879 Active Eva Ferrara MD PhD Active TERBINAFINE HCL 1 % CREA Apply bid to rash TERBINAFINE HCL 12112807619 No Longer Active Eva Ferrara MD PhD Active TOPAMAX 25 MG TABS 1 tab po qhs x 1 week, then take 2 tabs po qhs TOPIRAMATE 19758979178 No Longer Active Thom Giblert MD Active ULTRAM 50 MG TAB take 1 tab po q6hrs prn pain TRAMADOL HCL 67903461257 Active Ian Valdez MD Active LAMISIL AT 1 % CREA apply bid to rash TERBINAFINE HCL 26774265008 No Longer Active Thom Gilbert MD Active TERBINAFINE HCL 250 MG TABS 1 qDay TERBINAFINE HCL 84564687582 No Longer Active Ian Valdez MD Active XANAX 0.25 MG TABS take 1 tab po bid prn anxiety. ALPRAZOLAM 95399276110 No Longer Active Ian Valdez MD Active FISH OIL 1000 MG CAPS 2 caps PO once daily at bedtime OMEGA-3 FATTY ACIDS 44657721198 No Longer Active Ian Valdez MD Active KLOR-CON M20 20 MEQ CR-TABS take 1 tab po qday with lasix POTASSIUM CHLORIDE GALILEO CR 15471863177 Active Ian Valdez MD Active LASIX 20 MG TAB 1 tablet by mouth daily prn swelling FUROSEMIDE 10312077400 Active Ina Valdez MD Active FLONASE 50 MCG/ACT SUSP 2 puffs in each nostril once daily at bedtime FLUTICASONE PROPIONATE 51786419986 Active Ian Valdez MD Active CVS MELATONIN 3 MG TABS 2 tabs PO at bedtime MELATONIN 13883203544 Active Ian Valdez MD Active PULMICORT FLEXHALER 180 MCG/ACT AEPB 2 INH BID BUDESONIDE 46525524107 No Longer Active Ian Valdez MD Active METFORMIN HCL 500 MG TB24 1 TAB PO Q HS METFORMIN HCL 92227567397 No Longer Active Ian Valdez MD Active CYCLOBENZAPRINE HCL 10 MG TABS 1 PO q 8 hrs PRN muscle spasm 2012 CYCLOBENZAPRINE HCL 13512906993 No Longer Active Ian Valdez MD Active AZITHROMYCIN 500 MG TABS 1 PO q day x 6 days AZITHROMYCIN 92653367985 No Longer Active Ian Valdez MD Active CIPRO 500 MG TAB 1 tablet by mouth twice daily CIPROFLOXACIN HCL 54589564132 No Longer Active Ian Valdez MD Active PREDNISONE 20 MG TABS 3 qd x 2d, 2 qd x 2d, 1 qd x 2d, 1/2 qd x 2d PREDNISONE 28471210134 No Longer Active Law FIGUEROA Active CELEXA 40 MG TABS 2 PO DAILY CITALOPRAM HYDROBROMIDE 63628620123 Active Ian Valdez MD Active OMEPRAZOLE 20 MG CPDR 1 tablet by mouth daily OMEPRAZOLE 61984588243 No Longer Active [place] FIGUEROA Active KLONOPIN 0.5 MG TABS 1 TABLET PO PRN CLONAZEPAM 81453250342 No Longer Active [place] FIGUEROA Active MOBIC 7.5 MG TABS 1 tablet by mouthonce a day MELOXICAM 98865367182 No Longer Active [place] FIGUEROA Active ZITHROMAX 1 GM PACK DIRECTED AZITHROMYCIN 24939798020 No Longer Active Ian Valdez MD Active ALBUTEROL SULFATE 0.083 % NEBU SOLJeanette one vial per nebulizer every 4-6 hours as needed ALBUTEROL SULFATE 52402802285 Active Ian Valdez MD Active CHANTIX STARTING MONTH REBEKAH 0.5 MG X 11 & 1 MG X 42 TABS 0.5mg daily for 3 days , then 0.5mg BID for 4 days, then 1mg BID VARENICLINE TARTRATE 70028418974 No Longer Active Ian Valdez MD Active ZITHROMAX 1 GM PACK DIRECTED AZITHROMYCIN 96819469381 No Longer Active Ian Valdez MD Active AURALGAN 1.4-5.5 % SOLN BENZOCAINE-ANTIPYRINE 85506502395 No Longer Active Ian Valdez MD Active PREDNISONE 20 MG TAB 3 tabs daily for 3 days, 2 tab daily for 3 days, 1 tab daily for 2 days, then 1/2 tab dialy for 2 days PREDNISONE 34164526306 No Longer Active Ian Valdez MD Active SIMVASTATIN 40 MG TABS 1 TABLET PO Q HS SIMVASTATIN 64281306158 Active Ian Valdez MD Active SIMVASTATIN 80 MG TABS Take one by mouth daily SIMVASTATIN 21236093849 No Longer Active Ian Valdez MD Active PREDNISONE 20 MG TAB 2 tabs daily for 3 days, 1 tab daily for 3 days, 1/2 tab daily for 2 days PREDNISONE 41256528696 No Longer Active Ian Valdez MD Active ZITHROMAX 250 MG TAB 2 po today, then 1 po q days 2-5 AZITHROMYCIN 76792874610 No Longer Active Ian Valdez MD Active TRAZODONE HCL 100 MG TABS 2 TABS PO Q HS TRAZODONE HCL 73986104913 Active Ian Valdez MD Active ZITHROMAX 250 MG TAB 2 po today, then 1 po q days 2-5 AZITHROMYCIN 19435126686 No Longer Active Ian Valdez MD Active SIMVASTATIN 80 MG TABS Take one by mouth daily SIMVASTATIN 80 MG TABS 186230 SIMVASTATIN Inactive AURALGAN 1.4-5.5 % SOLN AURALGAN 1.4-5.5 % SOLN BENZOCAINE-ANTIPYRINE Inactive ZITHROMAX 1 GM PACK DIRECTED ZITHROMAX 1 GM PACK 023427 AZITHROMYCIN Inactive CHANTIX STARTING MONTH REBEKAH 0.5 MG X 11 & 1 MG X 42 TABS 0.5mg daily for 3 days , then 0.5mg BID for 4 days, then 1mg BID CHANTIX STARTING MONTH REBEKAH 0.5 MG X 11 & 1 MG X 42 TABS VARENICLINE TARTRATE Inactive ZITHROMAX 1 GM PACK DIRECTED ZITHROMAX 1 GM PACK 570892 AZITHROMYCIN Inactive MOBIC 7.5 MG TABS 1 tablet by mouthonce a day MOBIC 7.5 MG TABS 600873 MELOXICAM Inactive KLONOPIN 0.5 MG TABS 1 TABLET PO PRN KLONOPIN 0.5 MG TABS 497242 CLONAZEPAM Inactive CIPRO 500 MG TAB 1 tablet by mouth twice daily CIPRO 500 MG TAB 300609 CIPROFLOXACIN HCL Inactive AZITHROMYCIN 500 MG TABS 1 PO q day x 6 days AZITHROMYCIN 500 MG TABS 9481231 AZITHROMYCIN Inactive CYCLOBENZAPRINE HCL 10 MG TABS 1 PO q 8 hrs PRN muscle spasm 2012 CYCLOBENZAPRINE HCL 10 MG TABS 577085 CYCLOBENZAPRINE HCL Inactive METFORMIN HCL 500 MG [...] bid prn anxiety. XANAX 0.25 MG TABS 207357 ALPRAZOLAM Inactive LAMISIL AT 1 % CREA apply bid to rash LAMISIL AT 1 % CREA 791691 TERBINAFINE HCL Inactive TOPAMAX 25 MG TABS 1 tab po qhs x 1 week, then take 2 tabs po qhs TOPAMAX 25 MG TABS 448954 TOPIRAMATE Inactive TERBINAFINE HCL 1 % CREA Apply bid to rash TERBINAFINE HCL 1 % CREA 216105 TERBINAFINE HCL Inactive ZITHROMAX 250 MG TAB 2 po today, then 1 po q days 2-5 ZITHROMAX 250 MG TAB 7645313 AZITHROMYCIN Inactive ZITHROMAX 250 MG TAB 2 po today, then 1 po q days 2-5 ZITHROMAX 250 MG TAB 5039521 AZITHROMYCIN Inactive PREDNISONE 20 MG TAB 2 tabs daily for 3 days, 1 tab daily for 3 days, 1/2 tab daily for 2 days PREDNISONE 20 MG TAB 775084 PREDNISONE Inactive PREDNISONE 20 MG TAB 3 tabs daily for 3 days, 2 tab daily for 3 days, 1 tab daily for 2 days, then 1/2 tab dialy for 2 days PREDNISONE 20 MG TAB 298910 PREDNISONE Inactive OMEPRAZOLE 20 MG CPDR 1 tablet by mouth daily OMEPRAZOLE 20 MG CPDR 104316 OMEPRAZOLE Inactive PREDNISONE 20 MG TABS 3 qd x 2d, 2 qd x 2d, 1 qd x 2d, 1/2 qd x 2d PREDNISONE 20 MG TABS 646299 PREDNISONE Inactive TERBINAFINE HCL 250 MG TABS 1 qDay TERBINAFINE HCL 250 MG TABS 222514 TERBINAFINE HCL Inactive Advance Directives Directive Description Start Date NO HEROIC MEASURES Immunizations Vaccine Administration Date Value Standard Description Combined Kmfyzeiksl-Iwmhvzy-ynqhwolki Pertussis (dTpa) Vaccine - Booster 07/05 Boostrix [[id number]] tetanus toxoid, reduced diphtheria toxoid, and acellular [...] 5.3 % 4.3-6.0 sodium, serum 139 mmol/L 115-854 0107/02/24 potassium, serum 4.4 mmol/L 3.5-5.2 chloride, serum [...] Panel - Chemistry cholesterol, serum 118 mg/dL 745-596 9853/02/24 triglyceride, serum, fasting 141 mg/dL 30-200 HDL cholesterol, serum 20 mg/dL 32-96 LDL cholesterol, serum 70 mg/dL 0-130 Office Visit: Consult infertility - Chemistry human chorionic gonadotropin, urine, qualitative (urine test) Negative Encounters Code Encounter Date Provider Facility CPT-65001 Level 3 Est. Patient 14:45:01 CDT Eva Ferrara MD PhD [facility] CPT-67199 Level 3 Est. Patient 14:54:10 CDT Ian Valdez MD [facility] CPT-02611 Level 4 Est. Patient 20:36:52 CDT Ian Valdez MD [facility]-61007 Level 4 Est. Patient 11:14:30 TRADE MANAGER Ian Valdez MD [facility]-17755 Level 3 Est. Patient 19:08:34 TRADE MANAGER Ian Valdez MD [facility]-10722 Level 3 Est. Patient 13:17:39 TRADE MANAGER Ian Valdez MD [facility]-36804 Level 4 Est. Patient 18:56:10 CDT Ian Valdez MD [facility]-15308 Level 4 Est. Patient 16:55:56 CDT Ian Valdez MD [facility]-08012 Level 3 Est. Patient 11:27:07 CDT Ian Valdez MD [facility] CPT-96867 Level 3 Est. Patient 15:17:44 CDT Law Rosas [facility] CPT-09731 Level 4 Est. Patient 15:13:53 CDT Wellington Muniz [facility] CPT-29947 Level 3 Est. Patient 14:25:12 TRADE MANAGER Ian Valdez MD [facility]-92083 Level 3 Est. Patient 10:24:46 CDT Ian Valdez MD [facility]-82157 Level 3 Est. Patient 15:34:19 CDT Ian Valdez MD [facility]-74565 Level 3 Est. Patient 14:22:41 CDT Ian Valdez MD [facility]-72669 Level 3 Est. Patient 15:07:22 TRADE MANAGER Ian Valdez MD [facility] CPT-72109 Level 3 New Patient 09:06:43 TRADE MANAGER Ian Valdez MD [facility] CPT-78650 Level 3 Est. Patient 15:09:00 TRADE MANAGER Ian Valdez MD [facility] Procedures Code Procedure Name Date Entry Date Standard Description CPT-J1885 Toradol 60 mg (Ketorolac) 15:37:32 CDT CPT-04898 Abx/Therapy Injection 15:37:32 CDT CPT-J1885 Toradol 60 mg (Ketorolac) 14:45:01 CDT CPT-OV Office Visit 15:19:52 CDT CPT-OV Office Visit 10:41:01 CDT CPT-27885 Core biop breast wo imaging 16:50:06 CDT CPT-OV Office Visit 16:50:05 CDT CPT-70284 UHCG (floor use only) 13:39:36 CDT CPT-45399 Nexplanon Placement 10:11:48 CDT CPT-J7307 Nexplanon (Implant) 10:11:48 CDT CPT-OV Office Visit 09:54:18 CDT CPT-30668 EKG Trac and Interp 16:50:19 CDT CPT-99664 Venipuncture Draw Fee 15:06:08 CDT CPT-J2930 Solu Medrol 125 mg (Methyl Prednisolone Sodium Succinate) 12:44:46 CDT CPT-J1055 Depo Provera 150 mg (Medroxyprogesterone) 12:44:46 CDT CPT-10830 Abx/Therapy Injection 12:44:46 CDT CPT-J1055 Depo Provera 150 mg (Medroxyprogesterone) 14:28:41 CDT CPT-J2930 Solu Medrol 125 mg (Methyl Prednisolone Sodium Succinate) 14:22:41 CDT CPT-77027 Administration single or combination vaccine inc oral 10 :08:06 CDT CPT-98787 Tdap 10:08:06 CDT CPT-G0402 Wlcm To Medicare Ex 22:17:30 CDT CPT-81399 Venipuncture Draw Fee 10:33:07 TRADE MANAGER CPT-84294 Venipuncture Draw Fee 10:17:37 TRADE MANAGER CPT-G0403 EKG Wl To Medicare 22:17:30 CDT
--- OUTSIDE RECORDS SUMMARY | 2018-07-17 22:17 | XMS REPORT ---
Author Author [facility] Medical Staff Organization [facility] Address [address] [place] [address] Phone [phone] Care Team Providers Care Tail Puller Name Role Phone JOSSIE FRANCIS, FARHAD PP [phone] Summary purpose TRANSITION OF CARE AUTO GENERATION [...] tests and/or laboratory data RESULTS Radiology Results [id number] US BREAST SONO PACs Image DATE OF EXAM: Feb 21 2014 [id number] SONO : RADIOLOGY REPORT DATE OF SERVICE: 02/21/14 HISTORY: Palpable nodule medial right breast, history of previous surgery of lateral right breast for mass RIGHT BREAST ULTRASOUND 1507 HOURS No solid or cystic lesions are evident. There is no acoustical shadowing or dilated duct. IMPRESSION: Negative breast ultrasound. Clinical followup of any persistent abnormality is recommended. Repeat mammography may also be performed if there is a persistent palpable finding. MD LEONARDO Logan/mn02/21/2014 15:20:00 / 02/21/2014 15:30:54 cc:Dr. Carlos Mccormack This document has been electronically Signed by: On: DATE OF EXAM: Feb 21 2014 [id number] SONO : RADIOLOGY REPORT DATE OF SERVICE: 02/21/14 HISTORY: Palpable nodule medial right breast, history of previous surgery of lateral right breast for mass RIGHT BREAST ULTRASOUND 1507 HOURS No solid or cystic lesions are evident. There is no acoustical shadowing or dilated duct. IMPRESSION: Negative breast ultrasound. Clinical followup of any persistent abnormality is recommended. Repeat mammography may also be performed if there is a persistent palpable finding. MD LEONARDO Logan/mn02/21/2014 15:20:00 / 02/21/2014 15:30:54 cc:Dr. Cralos Mccormack This document has been electronically Signed by: SABINE HUMMEL On: Feb 22 20148:57A Result Amended on 2014-02-22 at 08:57:09. Previous status was [place]. History of procedures No procedures recorded for [...]
--- OUTSIDE RECORDS SUMMARY | 2018-07-17 22:17 | XMS REPORT ---
Author Author [facility] Medical Staff Organization [facility] Address [address] [id number] Phone [phone] Care Team Providers Care Tie Hacker Name Role Phone FARHAD SETHI MD PP [phone] Summary purpose TRANSITION OF CARE AUTO GENERATION [...] Oxygen Saturation 97% :05 BP Systolic 126mmHg :05 BP Diastolic 66mmHg :05 Temperature 98.3F :05 Social history Type Value Smoking Status CURRENT EVERY DAY SMOKER Treatment Plan No treatment plan text is available for this visit. Hospital discharge instructions Dismissal Condition good Disposition on DC home DC Inst/Educ Give yes Med/Side Effects Rev yes
--- OUTSIDE RECORDS SUMMARY | 2018-07-17 22:17 | XMS REPORT | Clinical Summary ---
Author Author Admin, ARIAN Organization [facility] Address Unknown Phone Unavailable Allergies, Adverse Reactions, Alerts Allergy Name Reaction Description Start Date Severity Status Provider LATEX GLOVES Critical Active Ian aVldez MD HALDOL Critical Active Ian Valdez MD [...] Thom Gilbert MD Chronic pain ICD-338.29 Inactive Tohm Gilbert MD Unspecified procreative management ICD-V26.9 Inactive [...] cap by mouth twice daily DOXYCYCLINE HYCLATE 47543652662 No Longer Active Najma Vaughn SAMI Active MULTIVITAMINS CAPS 1 tablet daily MULTIPLE VITAMIN 55846509496 Active Juan Smith MD Active CYCLOBENZAPRINE HCL 10 MG TABS 1/2 - 1 tab by mouth three times daily if needed for spasms/pain CYCLOBENZAPRINE HCL 23646925087 Active Ian Valdez MD Active GLUCOPHAGE 500 MG TABS 1 tab BID with morning and night meals METFORMIN HCL 71039365968 Active Eva Ferrara MD PhD Active PROGESTERONE MICRONIZED 100 MG CAPS 2 caps daily day 16 thru 25 of cycle 2013 PROGESTERONE MICRONIZED 22248981696 Active Eva Ferrara MD PhD Active TERBINAFINE HCL 1 % CREA Apply bid to rash TERBINAFINE HCL 03871065363 No Longer Active Eva Ferrara MD PhD Active TOPAMAX 25 MG TABS 1 tab po qhs x 1 week, then take 2 tabs po qhs TOPIRAMATE 97574308965 No Longer Active Thom Gilbert MD Active ULTRAM 50 MG TAB take 1 tab po q6hrs prn pain TRAMADOL HCL 19345274220 Active Juan Smith MD Active LAMISIL AT 1 % CREA apply bid to rash TERBINAFINE HCL 59817817905 No Longer Active Thom Gilbert MD Active TERBINAFINE HCL 250 MG TABS 1 qDay TERBINAFINE HCL 34638252247 No Longer Active Ian Valdez MD Active XANAX 0.25 MG TABS take 1 tab po bid prn anxiety. ALPRAZOLAM 74356708728 No Longer Active Ian Valdez MD Active FISH OIL 1000 MG CAPS 2 caps PO once daily at bedtime OMEGA-3 FATTY ACIDS 64897388308 No Longer Active Ian Valdez MD Active KLOR-CON M20 20 MEQ CR-TABS take 1 tab po qday with lasix POTASSIUM CHLORIDE GALILEO CR 96507783063 Active Ian Valdez MD Active LASIX 20 MG TAB 1 tablet by mouth daily prn swelling FUROSEMIDE 65699451349 Active Ian Valdez MD Active FLONASE 50 MCG/ACT SUSP 2 puffs in each nostril once daily at bedtime FLUTICASONE PROPIONATE 04963068516 Active Ian Valdez MD Active CVS MELATONIN 3 MG TABS 2 tabs PO at bedtime MELATONIN 52620526905 Active Ian Valdez MD Active PULMICORT FLEXHALER 180 MCG/ACT AEPB 2 INH BID BUDESONIDE 90450793973 No Longer Active Ian Valdez MD Active METFORMIN HCL 500 MG TB24 1 TAB PO Q HS METFORMIN HCL 62365282483 No Longer Active Ian Valdez MD Active CYCLOBENZAPRINE HCL 10 MG TABS 1 PO q 8 hrs PRN muscle spasm 2012 CYCLOBENZAPRINE HCL 90682423060 No Longer Active Ian Valdez MD Active AZITHROMYCIN 500 MG TABS 1 PO q day x 6 days AZITHROMYCIN 97959853050 No Longer Active Ian Valdez MD Active CIPRO 500 MG TAB 1 tablet by mouth twice daily CIPROFLOXACIN HCL 45947390474 No Longer Active Ian Valdez MD Active PREDNISONE 20 MG TABS 3 qd x 2d, 2 qd x 2d, 1 qd x 2d, 1/2 qd x 2d PREDNISONE 11982684676 No Longer Active Law FIGUEROA Active CELEXA 40 MG TABS 2 PO DAILY CITALOPRAM HYDROBROMIDE 61954675054 Active Ian Valdez MD Active OMEPRAZOLE 20 MG CPDR 1 tablet by mouth daily OMEPRAZOLE 80683276093 No Longer Active [place] FIGUEROA Active KLONOPIN 0.5 MG TABS 1 TABLET PO PRN CLONAZEPAM 02425189575 No Longer Active [place] FIGUEROA Active MOBIC 7.5 MG TABS 1 tablet by mouthonce a day MELOXICAM 01260220675 No Longer Active [place] FIGUEROA Active ZITHROMAX 1 GM PACK DIRECTED AZITHROMYCIN 53990557180 No Longer Active Ian Valdez MD Active ALBUTEROL SULFATE 0.083 % NEBU SOLN one vial per nebulizer every 4-6 hours as needed ALBUTEROL SULFATE 84618306917 Active Ian Valdez MD Active CHANTIX STARTING MONTH REBEKAH 0.5 MG X 11 & 1 MG X 42 TABS 0.5mg daily for 3 days , then 0.5mg BID for 4 days, then 1mg BID VARENICLINE TARTRATE 63255588149 No Longer Active Ian Valdez MD Active ZITHROMAX 1 GM PACK DIRECTED AZITHROMYCIN 69068691735 No Longer Active Ian Valdez MD Active AURALGAN 1.4-5.5 % SOLN BENZOCAINE-ANTIPYRINE 08082098609 No Longer Active Ian Valdez MD Active PREDNISONE 20 MG TAB 3 tabs daily for 3 days, 2 tab daily for 3 days, 1 tab daily for 2 days, then 1/2 tab dialy for 2 days PREDNISONE 05852521493 No Longer Active Ian Valdez MD Active SIMVASTATIN 40 MG TABS 1 TABLET PO Q HS SIMVASTATIN 70061955280 Active Ian Valdez MD Active SIMVASTATIN 80 MG TABS Take one by mouth daily SIMVASTATIN 42569041116 No Longer Active Ian Valdez MD Active PREDNISONE 20 MG TAB 2 tabs daily for 3 days, 1 tab daily for 3 days, 1/2 tab daily for 2 days PREDNISONE 07820631935 No Longer Active Ian Valdez MD Active ZITHROMAX 250 MG TAB 2 po today, then 1 po q days 2-5 AZITHROMYCIN 24703559055 No Longer Active Ian Valdez MD Active TRAZODONE HCL 100 MG TABS 2 TABS PO Q HS TRAZODONE HCL 72036778105 Active Ian Valdez MD Active ZITHROMAX 250 MG TAB 2 po today, then 1 po q days 2-5 AZITHROMYCIN 40812457135 No Longer Active Ian Valdez MD Active SIMVASTATIN 80 MG TABS Take one by mouth daily SIMVASTATIN 80 MG TABS 981766 SIMVASTATIN Inactive AURALGAN 1.4-5.5 % SOLN AURALGAN 1.4-5.5 % SOLN BENZOCAINE-ANTIPYRINE Inactive ZITHROMAX 1 GM PACK DIRECTED ZITHROMAX 1 GM PACK 696550 AZITHROMYCIN Inactive CHANTIX STARTING MONTH REBEKAH 0.5 MG X 11 & 1 MG X 42 TABS 0.5mg daily for 3 days , then 0.5mg BID for 4 days, then 1mg BID CHANTIX STARTING MONTH REBEKAH 0.5 MG X 11 & 1 MG X 42 TABS VARENICLINE TARTRATE Inactive ZITHROMAX 1 GM PACK DIRECTED ZITHROMAX 1 GM PACK 347053 AZITHROMYCIN Inactive MOBIC 7.5 MG TABS 1 tablet by mouthonce a day MOBIC 7.5 MG TABS 273759 MELOXICAM Inactive KLONOPIN 0.5 MG TABS 1 TABLET PO PRN KLONOPIN 0.5 MG TABS 074505 CLONAZEPAM Inactive CIPRO 500 MG TAB 1 tablet by mouth twice daily CIPRO 500 MG TAB 822251 CIPROFLOXACIN HCL Inactive AZITHROMYCIN 500 MG TABS 1 PO q day x 6 days AZITHROMYCIN 500 MG TABS 2358763 AZITHROMYCIN Inactive CYCLOBENZAPRINE HCL 10 MG TABS 1 PO q 8 hrs PRN muscle spasm 2012 CYCLOBENZAPRINE HCL 10 MG TABS 259184 CYCLOBENZAPRINE HCL Inactive METFORMIN HCL 500 MG [...] bid prn anxiety. XANAX 0.25 MG TABS 653946 ALPRAZOLAM Inactive LAMISIL AT 1 % CREA apply bid to rash LAMISIL AT 1 % CREA 856918 TERBINAFINE HCL Inactive TOPAMAX 25 MG TABS 1 tab po qhs x 1 week, then take 2 tabs po qhs TOPAMAX 25 MG TABS 447628 TOPIRAMATE Inactive TERBINAFINE HCL 1 % CREA Apply bid to rash TERBINAFINE HCL 1 % CREA 586309 TERBINAFINE HCL Inactive ZITHROMAX 250 MG TAB 2 po today, then 1 po q days 2-5 ZITHROMAX 250 MG TAB 8228910 AZITHROMYCIN Inactive ZITHROMAX 250 MG TAB 2 po today, then 1 po q days 2-5 ZITHROMAX 250 MG TAB 7755910 AZITHROMYCIN Inactive PREDNISONE 20 MG TAB 2 tabs daily for 3 days, 1 tab daily for 3 days, 1/2 tab daily for 2 days PREDNISONE 20 MG TAB 825520 PREDNISONE Inactive PREDNISONE 20 MG TAB 3 tabs daily for 3 days, 2 tab daily for 3 days, 1 tab daily for 2 days, then 1/2 tab dialy for 2 days PREDNISONE 20 MG TAB 294815 PREDNISONE Inactive OMEPRAZOLE 20 MG CPDR 1 tablet by mouth daily OMEPRAZOLE 20 MG CPDR 748428 OMEPRAZOLE Inactive PREDNISONE 20 MG TABS 3 qd x 2d, 2 qd x 2d, 1 qd x 2d, 1/2 qd x 2d PREDNISONE 20 MG TABS 290938 PREDNISONE Inactive TERBINAFINE HCL 250 MG TABS 1 qDay TERBINAFINE HCL 250 MG TABS 338458 TERBINAFINE HCL Inactive DOXYCYCLINE HYCLATE 100 MG CAP 1 cap by mouth twice daily DOXYCYCLINE HYCLATE 100 MG CAP 721532 DOXYCYCLINE HYCLATE Inactive Advance Directives Directive Description Start Date NO HEROIC MEASURES Immunizations Vaccine Administration Date Value Standard Description Boostrix (Tetanus toxoid, reduced diphtheria toxoid and acellular pertussis vaccine, adsorbed), booster Boostrix [[id number]] tetanus toxoid, reduced diphtheria toxoid, and acellular [...] 5.3 % 4.3-6.0 sodium, serum 139 mmol/L 252-024 5040/02/24 potassium, serum 4.4 mmol/L 3.5-5.2 chloride, serum [...] 1.44 m[iU]/mL 0.36-3.74 cholesterol, serum 144 mg/dL 041-048 2715/11/19 triglyceride, serum, fasting 172 mg/dL 30-200 HDL cholesterol, serum 30 mg/dL 32-96 LDL cholesterol, serum 80 mg/dL 0-130 sodium, serum 137 mmol/L 600-228 0864/11/19 potassium, serum 4.1 mmol/L 3.5-5.2 chloride, serum [...] Panel - Chemistry cholesterol, serum 118 mg/dL 929-214 2818/02/24 triglyceride, serum, fasting 141 mg/dL 30-200 HDL [...] mg/dL Encounters Code Encounter Date Provider Facility CPT-45197 Level 3 Est. Patient 15:50:27 [employer] Najma Vaughn APRN [facility] CPT-41139 Level 4 Est. Patient 21:20:00 [employer] Ian Valdez MD [facility] CPT-20749 Level 3 Est. Patient 15:32:41 [employer] Juan Smith MD [facility] CPT-24287 Level 3 Est. Patient 14:45:01 CDT Eva Ferrara MD PhD [facility] CPT-77037 Level 3 Est. Patient 14:54:10 CDT Ian Valdez MD [facility] CPT-16777 Level 4 Est. Patient 20:36:52 CDT Ian Valdez MD [facility] CPT-57506 Level 4 Est. Patient 11:14:30 [employer] Ian Valdez MD [facility] CPT-74706 Level 3 Est. Patient 19:08:34 [employer] Ian Valdez MD [facility] CPT-42244 Level 3 Est. Patient 13:17:39 [employer] Ian Valdez MD [facility] CPT-47721 Level 4 Est. Patient 18:56:10 CDT Ian Valdez MD [facility] CPT-93078 Level 4 Est. Patient 16:55:56 CDT Ian Valdez MD [facility] CPT-51515 Level 3 Est. Patient 11:27:07 CDT Ian Valdez MD [facility] CPT-23138 Level 3 Est. Patient 15:17:44 CDT Law Rosas [facility] CPT-72372 Level 4 Est. Patient 15:13:53 CDT Wellington Muniz [facility] CPT-50343 Level 3 Est. Patient 14:25:12 [employer] Ian Valdez MD [facility] CPT-52782 Level 3 Est. Patient 10:24:46 CDT Ian Valdez MD [facility] CPT-61765 Level 3 Est. Patient 15:34:19 CDT Ian Valdez MD [facility] CPT-99559 Level 3 Est. Patient 14:22:41 CDT Ian Valdez MD [facility] CPT-21497 Level 3 Est. Patient 15:07:22 [employer] Ian Valdez MD [facility] CPT-80422 Level 3 New Patient 09:06:43 [employer] Ian Valdez MD [facility] CPT-32733 Level 3 Est. Patient 15:09:00 [employer] Ian Valdez MD [facility] Procedures Code Procedure Name Date Entry Date Standard Description CPT-OV Office Visit 15:49:26 [employer] CPT-J1885 Toradol 60 mg (Ketorolac) 15:37:32 CDT CPT-12725 Abx/Therapy Injection 15:37:32 CDT CPT-J1885 Toradol 60 mg (Ketorolac) 14:45:01 CDT CPT-OV Office Visit 15:19:52 CDT CPT-OV Office Visit 10:41:01 CDT CPT-12680 Core biop breast wo imaging 16:50:06 CDT CPT-OV Office Visit 16:50:05 CDT CPT-66784 UHCG (floor use only) 13:39:36 CDT CPT-28762 Nexplanon Placement 10:11:48 CDT CPT-J7307 Nexplanon (Implant) 10:11:48 CDT CPT-OV Office Visit 09:54:18 CDT CPT-12444 EKG Trac and Interp 16:50:19 CDT CPT-64435 Venipuncture Draw Fee 15:06:08 CDT CPT-J2930 Solu Medrol 125 mg (Methyl Prednisolone Sodium Succinate) 12:44:46 CDT CPT-J1055 Depo Provera 150 mg (Medroxyprogesterone) 12:44:46 CDT CPT-97695 Abx/Therapy Injection 12:44:46 CDT CPT-J1055 Depo Provera 150 mg (Medroxyprogesterone) 14:28:41 CDT CPT-J2930 Solu Medrol 125 mg (Methyl Prednisolone Sodium Succinate) 14:22:41 CDT CPT-08422 Administration single or combination vaccine inc oral 10 :08:06 CDT CPT-27380 Tdap 10:08:06 CDT CPT-G0402 Wl To Medicare Ex 22:17:30 CDT CPT-72229 Venipuncture Draw Fee 10:33:07 [employer] CPT-04774 Venipuncture Draw Fee 10:17:37 [employer] CPT-G0403 EKG Wl To Medicare 22:17:30 CDT
--- OUTSIDE RECORDS SUMMARY | 2018-07-17 22:19 | XMS REPORT | Clinical Summary ---
Author Author Admin, ARIAN Organization [facility] Address Unknown Phone Allergies, Adverse [...] sinusitis (chronic) CONTACT DERMATITIS DUE TO POISON CARNIE 692.6 Resolved Ian Valdez MD Contact dermatitis [...] of stroke (cerebrovascular) Breast mass, right 611.72 Active Thom Gilbert MD Lump or mass in breast SINUSITIS [...] Ian Valdez MD Ankle sprain, left ICD-845.00 Singh Valdez MD Medication List Medication Instructions Start Date Stop Date Generic Name NDC Status Provider Patient Instruction LAMISIL AT 1 % CREA apply bid to rash TERBINAFINE HCL 71244324919 No Longer Active Thom Gilbert MD Active TERBINAFINE HCL 250 MG TABS 1 qDay TERBINAFINE HCL 81990402742 No Longer Active Ian Valdez MD Active TOPAMAX 25 MG TABS 1 tab po qhs x 1 week, then take 2 tabs po qhs TOPIRAMATE 41331066876 Active Ian Valdez MD Active XANAX 0.25 MG TABS take 1 tab po bid prn anxiety. ALPRAZOLAM 34225550077 No Longer Active Ian Valdez MD Active FISH OIL 1000 MG CAPS 2 caps PO once daily at bedtime OMEGA-3 FATTY ACIDS 47410307316 No Longer Active Ian Valdez MD Active KLOR-CON M20 20 MEQ CR-TABS take 1 tab po qday with lasix POTASSIUM CHLORIDE GALILEO CR 30517952113 Active Ian Valdez MD Active LASIX 20 MG TAB 1 tablet by mouth daily prn swelling FUROSEMIDE 34869308672 Active Ian Valdez MD Active FLONASE 50 MCG/ACT SUSP 2 puffs in each nostril once daily at bedtime FLUTICASONE PROPIONATE 52614575246 Active Ian Valdez MD Active CVS MELATONIN 3 MG TABS 2 tabs PO at bedtime MELATONIN 71646780128 Active Ian Valdez MD Active PULMICORT FLEXHALER 180 MCG/ACT AEPB 2 INH BID BUDESONIDE 06247605876 No Longer Active Ian Valdez MD Active METFORMIN HCL 500 MG TB24 1 TAB PO Q HS METFORMIN HCL 39148090024 No Longer Active Ian Valdez MD Active CYCLOBENZAPRINE HCL 10 MG TABS 1 PO q 8 hrs PRN muscle spasm 2012 CYCLOBENZAPRINE HCL 04705350949 No Longer Active Ian Valdez MD Active AZITHROMYCIN 500 MG TABS 1 PO q day x 6 days AZITHROMYCIN 28613442418 No Longer Active Ian Valdez MD Active CIPRO 500 MG TAB 1 tablet by mouth twice daily CIPROFLOXACIN HCL 99845535322 No Longer Active Ian Valdez MD Active PREDNISONE 20 MG TABS 3 qd x 2d, 2 qd x 2d, 1 qd x 2d, 1/2 qd x 2d PREDNISONE 47414727575 No Longer Active Law FIGUEROA Active CELEXA 40 MG TABS 2 PO DAILY CITALOPRAM HYDROBROMIDE 00156296829 Active Ian Valdez MD Active OMEPRAZOLE 20 MG CPDR 1 tablet by mouth daily OMEPRAZOLE 93723573944 No Longer Active [place] FIGUEROA Active KLONOPIN 0.5 MG TABS 1 TABLET PO PRN CLONAZEPAM 23631439751 No Longer Active [place] FIGUEROA Active MOBIC 7.5 MG TABS 1 tablet by mouthonce a day MELOXICAM 11165098922 No Longer Active [place] FIGUEROA Active ZITHROMAX 1 GM PACK DIRECTED AZITHROMYCIN 39461035346 No Longer Active Ian Valdez MD Active ALBUTEROL SULFATE 0.083 % NEBU SOLN one vial per nebulizer every 4-6 hours as needed ALBUTEROL SULFATE 28551820361 Active Ian Valdez MD Active CHANTIX STARTING MONTH REBEKAH 0.5 MG X 11 & 1 MG X 42 TABS 0.5mg daily for 3 days , then 0.5mg BID for 4 days, then 1mg BID VARENICLINE TARTRATE 67957935634 No Longer Active Ian Valdez MD Active ZITHROMAX 1 GM PACK DIRECTED AZITHROMYCIN 44768614243 No Longer Active Ian Valdez MD Active AURALGAN 1.4-5.5 % SOLN BENZOCAINE-ANTIPYRINE 57991907431 No Longer Active Ian Valdez MD Active PREDNISONE 20 MG TAB 3 tabs daily for 3 days, 2 tab daily for 3 days, 1 tab daily for 2 days, then 1/2 tab dialy for 2 days PREDNISONE 80304621347 No Longer Active Ian Valdez MD Active SIMVASTATIN 40 MG TABS 1 TABLET PO Q HS SIMVASTATIN 54463152401 Active Ian Valdez MD Active SIMVASTATIN 80 MG TABS Take one by mouth daily SIMVASTATIN 62433967817 No Longer Active Ian Valdez MD Active PREDNISONE 20 MG TAB 2 tabs daily for 3 days, 1 tab daily for 3 days, 1/2 tab daily for 2 days PREDNISONE 75343754886 No Longer Active Ian Valdez MD Active ZITHROMAX 250 MG TAB 2 po today, then 1 po q days 2-5 AZITHROMYCIN 22543984516 No Longer Active Ian Valdez MD Active TRAZODONE HCL 100 MG TABS 2 TABS PO Q HS TRAZODONE HCL 23022115466 Active Ian Valdez MD Active ZITHROMAX 250 MG TAB 2 po today, then 1 po q days 2-5 AZITHROMYCIN 92325148270 No Longer Active Ian Valdez MD Active SIMVASTATIN 80 MG TABS Take one by mouth daily SIMVASTATIN 80 MG TABS 286266 SIMVASTATIN Inactive AURALGAN 1.4-5.5 % SOLN AURALGAN 1.4-5.5 % SOLN 9391125 BENZOCAINE-ANTIPYRINE Inactive ZITHROMAX 1 GM PACK DIRECTED ZITHROMAX 1 GM PACK 231739 AZITHROMYCIN Inactive CHANTIX STARTING MONTH REBEKAH 0.5 MG X 11 & 1 MG X 42 TABS 0.5mg daily for 3 days , then 0.5mg BID for 4 days, then 1mg BID CHANTIX STARTING MONTH REBEKAH 0.5 MG X 11 & 1 MG X 42 TABS VARENICLINE TARTRATE Inactive ZITHROMAX 1 GM PACK DIRECTED ZITHROMAX 1 GM PACK 896185 AZITHROMYCIN Inactive MOBIC 7.5 MG TABS 1 tablet by mouthonce a day MOBIC 7.5 MG TABS 580752 MELOXICAM Inactive KLONOPIN 0.5 MG TABS 1 TABLET PO PRN KLONOPIN 0.5 MG TABS 031024 CLONAZEPAM Inactive CIPRO 500 MG TAB 1 tablet by mouth twice daily CIPRO 500 MG TAB 824208 CIPROFLOXACIN HCL Inactive AZITHROMYCIN 500 MG TABS 1 PO q day x 6 days AZITHROMYCIN 500 MG TABS 8494322 AZITHROMYCIN Inactive CYCLOBENZAPRINE HCL 10 MG TABS 1 PO q 8 hrs PRN muscle spasm 2012 CYCLOBENZAPRINE HCL 10 MG TABS 037315 CYCLOBENZAPRINE HCL Inactive METFORMIN HCL 500 MG [...] bid prn anxiety. XANAX 0.25 MG TABS 248564 ALPRAZOLAM Inactive LAMISIL AT 1 % CREA apply bid to rash LAMISIL AT 1 % CREA 874747 TERBINAFINE HCL Inactive ZITHROMAX 250 MG TAB 2 po today, then 1 po q days 2-5 ZITHROMAX 250 MG TAB 4511562 AZITHROMYCIN Inactive ZITHROMAX 250 MG TAB 2 po today, then 1 po q days 2-5 ZITHROMAX 250 MG TAB 6863604 AZITHROMYCIN Inactive PREDNISONE 20 MG TAB 2 tabs daily for 3 days, 1 tab daily for 3 days, 1/2 tab daily for 2 days PREDNISONE 20 MG TAB 499547 PREDNISONE Inactive PREDNISONE 20 MG TAB 3 tabs daily for 3 days, 2 tab daily for 3 days, 1 tab daily for 2 days, then 1/2 tab dialy for 2 days PREDNISONE 20 MG TAB 675304 PREDNISONE Inactive OMEPRAZOLE 20 MG CPDR 1 tablet by mouth daily OMEPRAZOLE 20 MG CPDR 439482 OMEPRAZOLE Inactive PREDNISONE 20 MG TABS 3 qd x 2d, 2 qd x 2d, 1 qd x 2d, 1/2 qd x 2d PREDNISONE 20 MG TABS 285451 PREDNISONE Inactive TERBINAFINE HCL 250 MG TABS 1 qDay TERBINAFINE HCL 250 MG TABS 171583 TERBINAFINE HCL Inactive Advance Directives Directive Description Start Date NO HEROIC MEASURES Immunizations Vaccine Administration Date Value Standard Description Boostrix (Tetanus toxoid, reduced diphtheria toxoid and acellular pertussis vaccine, adsorbed), booster Boostrix [[id number]] tetanus toxoid, reduced diphtheria toxoid, and acellular pertussis vaccine, adsorbed Vital Signs Date Name Value Unit Range Description blood pressure, diastolic - 8462-4 84 mm[Hg] [...] Panel - Chemistry sodium, serum 137 mmol/L 606-088 1512/07/25 potassium, serum 3.7 mmol/L 3.5-5.2 chloride, serum 102 mmol/L 98-107 carbon dioxide, venous blood 27.3 mmol/L 21.0-32.0 blood glucose 85 mg/dL 65-110 calcium, serum 8.5 mg/dL 8.5-10.1 urea nitrogen, blood 7 mg/dL 7-18 creatinine, serum 0.80 mg/dL 0.60-1.30 Lab Report: CBC, HGBA1C, Comp. Metabolic Panel - Chemistry hemoglobin A1C, blood, as % of total hemoglobin 5.3 % 4.3-6.0 sodium, serum 139 mmol/L 464-937 7799/02/24 potassium, serum 4.4 mmol/L 3.5-5.2 chloride, serum [...] Panel - Chemistry cholesterol, serum 118 mg/dL 790-773 7744/02/24 triglyceride, serum, fasting 141 mg/dL 30-200 HDL cholesterol, serum 20 mg/dL 32-96 LDL cholesterol, serum 70 mg/dL 0-130 Lab Report: Lipid Panel, Comp. Metabolic Panel, MICROALBUMIN, HGBA1C - Chemistry cholesterol, serum 172 mg/dL 074-843 9338/08/16 triglyceride, serum, fasting 267 mg/dL 30-200 HDL cholesterol, serum 22 mg/dL 32-96 LDL cholesterol, serum 97 mg/dL 0-130 sodium, serum 141 mmol/L 657-321 4776/08/16 potassium, serum 4.2 mmol/L 3.5-5.2 chloride, serum [...] Negative Encounters Code Encounter Date Provider Facility CPT-02957 Level 3 Est. Patient 14:54:10 CDT Ian Valdez MD [facility] CPT-74457 Level 4 Est. Patient 20:36:52 CDT Ian Valdez MD [facility] CPT-23591 Level 4 Est. Patient 11:14:30 [employer] Ian Valdez MD [facility] CPT-36029 Level 3 Est. Patient 19:08:34 [employer] Ian Valdez MD [facility] CPT-71888 Level 3 Est. Patient 13:17:39 [employer] Ian Valdez MD [facility] CPT-95716 Level 4 Est. Patient 18:56:10 CDT Ian Valdez MD [facility] CPT-29610 Level 4 Est. Patient 16:55:56 CDT Ian Valdez MD [facility] CPT-82669 Level 3 Est. Patient 11:27:07 CDT Ian Valdez MD [facility] CPT-11539 Level 3 Est. Patient 15:17:44 CDT Law Rosas [facility] CPT-63753 Level 4 Est. Patient 15:13:53 CDT Wellington Muniz [facility] CPT-77300 Level 3 Est. Patient 14:25:12 [employer] Ian Valdez MD [facility] CPT-43649 Level 3 Est. Patient 10:24:46 CDT Ian Valdez MD [facility] CPT-19944 Level 3 Est. Patient 15:34:19 CDT Ian Valdez MD [facility] CPT-50944 Level 3 Est. Patient 14:22:41 CDT Ian Valdez MD [facility] CPT-10338 Level 3 Est. Patient 15:07:22 [employer] Ian Valdez MD [facility] CPT-36669 Level 3 New Patient 09:06:43 [employer] Ian Valdez MD [facility] CPT-34664 Level 3 Est. Patient 15:09:00 [employer] Ian Valdez MD [facility] Procedures Code Procedure Name Date Entry Date Standard Description CPT-48678 Core biop breast wo imaging 16:50:06 CDT CPT-OV Office Visit 16:50:05 CDT CPT-45122 UHCG (floor use only) 13:39:36 CDT CPT-20765 Nexplanon Placement 10:11:48 CDT CPT-J7307 Nexplanon (Implant) 10:11:48 CDT CPT-OV Office Visit 09:54:18 CDT CPT-71110 EKG Trac and Interp 16:50:19 CDT CPT-64576 Venipuncture Draw Fee 15:06:08 CDT CPT-J2930 Solu Medrol 125 mg (Methyl Prednisolone Sodium Succinate) 12:44:46 CDT CPT-J1055 Depo Provera 150 mg (Medroxyprogesterone) 12:44:46 CDT CPT-34575 Abx/Therapy Injection 12:44:46 CDT CPT-J1055 Depo Provera 150 mg (Medroxyprogesterone) 14:28:41 CDT CPT-J2930 Solu Medrol 125 mg (Methyl Prednisolone Sodium Succinate) 14:22:41 CDT CPT-77074 Administration single or combination vaccine inc oral 10 :08:06 CDT CPT-23344 Tdap 10:08:06 CDT CPT-G0402 Wl To Medicare Ex 22:17:30 CDT CPT-50471 Venipuncture Draw Fee 10:33:07 [employer] CPT-66084 Venipuncture Draw Fee 10:17:37 [employer] CPT-G0403 EKG [facility] To Medicare 22:17:30 CDT
--- OUTSIDE RECORDS SUMMARY | 2018-07-17 22:20 | XMS REPORT | Clinical Summary ---
Author Author Admin, ARIAN Organization [facility] Address Unknown Phone Unavailable Allergies, Adverse [...] then take 2 tabs po qhs TOPIRAMATE [id number] No Longer Active Thom Gilbert MD Active ULTRAM 50 MG TAB take 1 tab po q6hrs prn pain TRAMADOL HCL 88156112687 Active Ian Valdez MD Active LAMISIL AT 1 % CREA apply bid to rash TERBINAFINE HCL 41519129551 No Longer Active Thom Gilbert MD Active TERBINAFINE HCL 250 MG TABS 1 qDay TERBINAFINE HCL 49036812045 No Longer Active Ian Valdez MD Active XANAX 0.25 MG TABS take 1 tab po bid prn anxiety. ALPRAZOLAM 33347607158 No Longer Active Ian Valdez MD Active FISH OIL 1000 MG CAPS 2 caps PO once daily at bedtime OMEGA-3 FATTY ACIDS 26705912324 No Longer Active Ian Valdez MD Active KLOR-CON M20 20 MEQ CR-TABS take 1 tab po qday with lasix POTASSIUM CHLORIDE GALILEO CR 46504866312 Active Ian Valdez MD Active LASIX 20 MG TAB 1 tablet by mouth daily prn swelling FUROSEMIDE 24163260522 Active Ian Valdez MD Active FLONASE 50 MCG/ACT SUSP 2 puffs in each nostril once daily at bedtime FLUTICASONE PROPIONATE 73650261095 Active Ian Valdez MD Active CVS MELATONIN 3 MG TABS 2 tabs PO at bedtime MELATONIN 45927515564 Active Ian Valdez MD Active PULMICORT FLEXHALER 180 MCG/ACT AEPB 2 INH BID BUDESONIDE 95575477958 No Longer Active Ian Valdez MD Active METFORMIN HCL 500 MG TB24 1 TAB PO Q HS METFORMIN HCL 97567490209 No Longer Active Ian Valdez MD Active CYCLOBENZAPRINE HCL 10 MG TABS 1 PO q 8 hrs PRN muscle spasm 2012 CYCLOBENZAPRINE HCL 46376143625 No Longer Active Ian Valdez MD Active AZITHROMYCIN 500 MG TABS 1 PO q day x 6 days AZITHROMYCIN 77782179743 No Longer Active Ian Valdez MD Active CIPRO 500 MG TAB 1 tablet by mouth twice daily CIPROFLOXACIN HCL 43067036541 No Longer Active Ian Valdez MD Active PREDNISONE 20 MG TABS 3 qd x 2d, 2 qd x 2d, 1 qd x 2d, 1/2 qd x 2d PREDNISONE 18495750346 No Longer Active Law FIGUEROA Active CELEXA 40 MG TABS 2 PO DAILY CITALOPRAM HYDROBROMIDE 27792554037 Active Ian Valdez MD Active OMEPRAZOLE 20 MG CPDR 1 tablet by mouth daily OMEPRAZOLE 31900333626 No Longer Active [place] FIGUEROA Active KLONOPIN 0.5 MG TABS 1 TABLET PO PRN CLONAZEPAM 75975369040 No Longer Active [place] FIGUEROA Active MOBIC 7.5 MG TABS 1 tablet by mouthonce a day MELOXICAM 90419338128 No Longer Active [place] FIGUEROA Active ZITHROMAX 1 GM PACK DIRECTED AZITHROMYCIN 63079481217 No Longer Active Ian Valdez MD Active ALBUTEROL SULFATE 0.083 % NEBU SOLN one vial per nebulizer every 4-6 hours as needed ALBUTEROL SULFATE 75503709603 Active Ian Valdez MD Active CHANTIX STARTING MONTH REBEKAH 0.5 MG X 11 & 1 MG X 42 TABS 0.5mg daily for 3 days , then 0.5mg BID for 4 days, then 1mg BID VARENICLINE TARTRATE 65081178206 No Longer Active Ian Valdez MD Active ZITHROMAX 1 GM PACK DIRECTED AZITHROMYCIN 17409803444 No Longer Active Ian Valdez MD Active AURALGAN 1.4-5.5 % SOLN BENZOCAINE-ANTIPYRINE 10207291358 No Longer Active Ian Valdez MD Active PREDNISONE 20 MG TAB 3 tabs daily for 3 days, 2 tab daily for 3 days, 1 tab daily for 2 days, then 1/2 tab dialy for 2 days PREDNISONE 25156318516 No Longer Active Ian Valdez MD Active SIMVASTATIN 40 MG TABS 1 TABLET PO Q HS SIMVASTATIN 52007372230 Active Ian Valdez MD Active SIMVASTATIN 80 MG TABS Take one by mouth daily SIMVASTATIN 08951745550 No Longer Active Ian Valdez MD Active PREDNISONE 20 MG TAB 2 tabs daily for 3 days, 1 tab daily for 3 days, 1/2 tab daily for 2 days PREDNISONE 93286534862 No Longer Active Ian Valdez MD Active ZITHROMAX 250 MG TAB 2 po today, then 1 po q days 2-5 AZITHROMYCIN 78453857073 No Longer Active Ian Valdez MD Active TRAZODONE HCL 100 MG TABS 2 TABS PO Q HS TRAZODONE HCL 96676445319 Active Ian Valdez MD Active ZITHROMAX 250 MG TAB 2 po today, then 1 po q days 2-5 AZITHROMYCIN 50974471329 No Longer Active Ian Valdez MD Active SIMVASTATIN 80 MG TABS Take one by mouth daily SIMVASTATIN 80 MG TABS 616100 SIMVASTATIN Inactive AURALGAN 1.4-5.5 % SOLN AURALGAN 1.4-5.5 % SOLN BENZOCAINE-ANTIPYRINE Inactive ZITHROMAX 1 GM PACK DIRECTED ZITHROMAX 1 GM PACK 920371 AZITHROMYCIN Inactive CHANTIX STARTING MONTH ERBEKAH 0.5 MG X 11 & 1 MG X 42 TABS 0.5mg daily for 3 days , then 0.5mg BID for 4 days, then 1mg BID CHANTIX STARTING MONTH REBEKAH 0.5 MG X 11 & 1 MG X 42 TABS VARENICLINE TARTRATE Inactive ZITHROMAX 1 GM PACK DIRECTED ZITHROMAX 1 GM PACK 257723 AZITHROMYCIN Inactive MOBIC 7.5 MG TABS 1 tablet by mouthonce a day MOBIC 7.5 MG TABS 577110 MELOXICAM Inactive KLONOPIN 0.5 MG TABS 1 TABLET PO PRN KLONOPIN 0.5 MG TABS 986331 CLONAZEPAM Inactive CIPRO 500 MG TAB 1 tablet by mouth twice daily CIPRO 500 MG TAB 812604 CIPROFLOXACIN HCL Inactive AZITHROMYCIN 500 MG TABS 1 PO q day x 6 days AZITHROMYCIN 500 MG TABS 9654768 AZITHROMYCIN Inactive CYCLOBENZAPRINE HCL 10 MG TABS 1 PO q 8 hrs PRN muscle spasm 2012 CYCLOBENZAPRINE HCL 10 MG TABS 174583 CYCLOBENZAPRINE HCL Inactive METFORMIN HCL 500 MG [...] bid prn anxiety. XANAX 0.25 MG TABS 565317 ALPRAZOLAM Inactive LAMISIL AT 1 % CREA apply bid to rash LAMISIL AT 1 % CREA 442096 TERBINAFINE HCL Inactive TOPAMAX 25 MG TABS 1 tab po qhs x 1 week, then take 2 tabs po qhs TOPAMAX 25 MG TABS 158433 TOPIRAMATE Inactive ZITHROMAX 250 MG TAB 2 po today, then 1 po q days 2-5 ZITHROMAX 250 MG TAB 7987097 AZITHROMYCIN Inactive ZITHROMAX 250 MG TAB 2 po today, then 1 po q days 2-5 ZITHROMAX 250 MG TAB 9662788 AZITHROMYCIN Inactive PREDNISONE 20 MG TAB 2 tabs daily for 3 days, 1 tab daily for 3 days, 1/2 tab daily for 2 days PREDNISONE 20 MG TAB 836627 PREDNISONE Inactive PREDNISONE 20 MG TAB 3 tabs daily for 3 days, 2 tab daily for 3 days, 1 tab daily for 2 days, then 1/2 tab dialy for 2 days PREDNISONE 20 MG TAB 063054 PREDNISONE Inactive OMEPRAZOLE 20 MG CPDR 1 tablet by mouth daily OMEPRAZOLE 20 MG CPDR 023461 OMEPRAZOLE Inactive PREDNISONE 20 MG TABS 3 qd x 2d, 2 qd x 2d, 1 qd x 2d, 1/2 qd x 2d PREDNISONE 20 MG TABS 612134 PREDNISONE Inactive TERBINAFINE HCL 250 MG TABS 1 qDay TERBINAFINE HCL 250 MG TABS 525343 TERBINAFINE HCL Inactive Advance Directives Directive Description Start Date NO HEROIC MEASURES Immunizations Vaccine Administration Date Value Standard Description Boostrix (Tetanus toxoid, reduced diphtheria toxoid and acellular pertussis vaccine, adsorbed), booster Boostrix [ENR856] tetanus toxoid, reduced diphtheria toxoid, and acellular [...] 5.3 % 4.3-6.0 sodium, serum 139 mmol/L 384-514 8201/02/24 potassium, serum 4.4 mmol/L 3.5-5.2 chloride, serum [...] Panel - Chemistry cholesterol, serum 118 mg/dL 554-707 9718/02/24 triglyceride, serum, fasting 141 mg/dL 30-200 HDL cholesterol, serum 20 mg/dL 32-96 LDL cholesterol, serum 70 mg/dL 0-130 Lab Report: Lipid Panel, Comp. Metabolic Panel, MICROALBUMIN, HGBA1C - Chemistry cholesterol, serum 172 mg/dL 922-506 9548/08/16 triglyceride, serum, fasting 267 mg/dL 30-200 HDL cholesterol, serum 22 mg/dL 32-96 LDL cholesterol, serum 97 mg/dL 0-130 sodium, serum 141 mmol/L 172-516 5366/08/16 potassium, serum 4.2 mmol/L 3.5-5.2 chloride, serum [...] Negative Encounters Code Encounter Date Provider Facility CPT-28382 Level 3 Est. Patient 14:54:10 CDT Ian Valdez MD [facility] CPT-60541 Level 4 Est. Patient 20:36:52 CDT Ina Valdez MD [facility] CPT-03827 Level 4 Est. Patient 11:14:30 DRIVER SALES Ian Valdez MD [facility] CPT-79099 Level 3 Est. Patient 19:08:34 DRIVER SALES Ian Valdez MD [facility] CPT-32450 Level 3 Est. Patient 13:17:39 DRIVER SALES Ian Valdez MD [facility] CPT-34093 Level 4 Est. Patient 18:56:10 CDT Ian Valdez MD [facility] CPT-73190 Level 4 Est. Patient 16:55:56 CDT Ian Valdez MD [facility] CPT-31292 Level 3 Est. Patient 11:27:07 CDT Ian Valdez MD [facility] CPT-70572 Level 3 Est. Patient 15:17:44 CDT Law Rosas [facility] CPT-62324 Level 4 Est. Patient 15:13:53 CDT Wellington Muniz [facility] CPT-31232 Level 3 Est. Patient 14:25:12 DRIVER SALES Ian Valdez MD [facility] CPT-86770 Level 3 Est. Patient 10:24:46 CDT Ian Valdez MD [facility] CPT-05394 Level 3 Est. Patient 15:34:19 CDT Ian Valdez MD [facility] CPT-35581 Level 3 Est. Patient 14:22:41 CDT Ian Valdez MD [facility] CPT-59719 Level 3 Est. Patient 15:07:22 DRIVER SALES Ian Valdez MD [facility] CPT-39964 Level 3 New Patient 09:06:43 DRIVER SALES Ian Valdez MD [facility] CPT-75165 Level 3 Est. Patient 15:09:00 DRIVER SALES Ian Valdez MD [facility] Procedures Code Procedure Name Date Entry Date Standard Description CPT-OV Office Visit 15:19:52 CDT CPT-OV Office Visit 10:41:01 CDT CPT-06789 Core biop breast wo imaging 16:50:06 CDT CPT-OV Office Visit 16:50:05 CDT CPT-92757 UHCG (floor use only) 13:39:36 CDT CPT-68294 Nexplanon Placement 10:11:48 CDT CPT-J7307 Nexplanon (Implant) 10:11:48 CDT CPT-OV Office Visit 09:54:18 CDT CPT-91875 EKG Trac and Interp 16:50:19 CDT CPT-14703 Venipuncture Draw Fee 15:06:08 CDT CPT-J2930 Solu Medrol 125 mg (Methyl Prednisolone Sodium Succinate) 12:44:46 CDT CPT-J1055 Depo Provera 150 mg (Medroxyprogesterone) 12:44:46 CDT CPT-12990 Abx/Therapy Injection 12:44:46 CDT CPT-J1055 Depo Provera 150 mg (Medroxyprogesterone) 14:28:41 CDT CPT-J2930 Solu Medrol 125 mg (Methyl Prednisolone Sodium Succinate) 14:22:41 CDT CPT-52043 Administration single or combination vaccine inc oral 10 :08:06 CDT CPT-75573 Tdap 10:08:06 CDT CPT-G0402 Wlcm To Medicare Ex 22:17:30 CDT CPT-99441 Venipuncture Draw Fee 10:33:07 DRIVER SALES CPT-45528 Venipuncture Draw Fee 10:17:37 DRIVER SALES CPT-G0403 EKG Wlc To Medicare 22:17:30 CDT
--- OUTSIDE RECORDS SUMMARY | 2018-07-17 22:21 | XMS REPORT | Clinical Summary ---
Author Author Admin, ARIAN Organization [facility] Address Unknown Phone Unavailable Allergies, [...] MULTIVITAMINS CAPS 1 tablet daily MULTIPLE VITAMIN 90149830255 Active Juan Smith MD Active CYCLOBENZAPRINE HCL 10 MG TABS 1/2 - 1 tab by mouth three times daily if needed for spasms/pain CYCLOBENZAPRINE HCL 24784018798 Active Eva Ferrara MD PhD Active GLUCOPHAGE 500 MG TABS 1 tab BID with morning and night meals METFORMIN HCL 41292772228 Active Eva Ferrara MD PhD Active PROGESTERONE MICRONIZED 100 MG CAPS 2 caps daily day 16 thru 25 of cycle 2013 PROGESTERONE MICRONIZED 49153926484 Active Eva Ferrara MD PhD Active TERBINAFINE HCL 1 % CREA Apply bid to rash TERBINAFINE HCL 31053989826 No Longer Active Eva Ferrara MD PhD Active TOPAMAX 25 MG TABS 1 tab po qhs x 1 week, then take 2 tabs po qhs TOPIRAMATE 78522343721 No Longer Active Thom Gilbert MD Active ULTRAM 50 MG TAB take 1 tab po q6hrs prn pain TRAMADOL HCL 75455945455 Active Ian Valdez MD Active LAMISIL AT 1 % CREA apply bid to rash TERBINAFINE HCL 41755403918 No Longer Active Thom Gilbert MD Active TERBINAFINE HCL 250 MG TABS 1 qDay TERBINAFINE HCL 10758652729 No Longer Active aIn Valdez MD Active XANAX 0.25 MG TABS take 1 tab po bid prn anxiety. ALPRAZOLAM 62220859964 No Longer Active Ian Valdez MD Active FISH OIL 1000 MG CAPS 2 caps PO once daily at bedtime OMEGA-3 FATTY ACIDS 57418028298 No Longer Active Ian Valdez MD Active KLOR-CON M20 20 MEQ CR-TABS take 1 tab po qday with lasix POTASSIUM CHLORIDE GALILEO CR 56346713872 Active Ian Valdez MD Active LASIX 20 MG TAB 1 tablet by mouth daily prn swelling FUROSEMIDE 11884285749 Active Ian Valdez MD Active FLONASE 50 MCG/ACT SUSP 2 puffs in each nostril once daily at bedtime FLUTICASONE PROPIONATE 62213846048 Active Ian Valdez MD Active CVS MELATONIN 3 MG TABS 2 tabs PO at bedtime MELATONIN 52382084302 Active Ian Valdez MD Active PULMICORT FLEXHALER 180 MCG/ACT AEPB 2 INH BID BUDESONIDE 92081797104 No Longer Active Ian Valdez MD Active METFORMIN HCL 500 MG TB24 1 TAB PO Q HS METFORMIN HCL 48463172794 No Longer Active Ian Valdez MD Active CYCLOBENZAPRINE HCL 10 MG TABS 1 PO q 8 hrs PRN muscle spasm 2012 CYCLOBENZAPRINE HCL 25627917407 No Longer Active Ian Valdez MD Active AZITHROMYCIN 500 MG TABS 1 PO q day x 6 days AZITHROMYCIN 09732376258 No Longer Active Ian Valdez MD Active CIPRO 500 MG TAB 1 tablet by mouth twice daily CIPROFLOXACIN HCL 58056628892 No Longer Active Ian Valdez MD Active PREDNISONE 20 MG TABS 3 qd x 2d, 2 qd x 2d, 1 qd x 2d, 1/2 qd x 2d PREDNISONE 55628278170 No Longer Active Law FIGUEROA Active CELEXA 40 MG TABS 2 PO DAILY CITALOPRAM HYDROBROMIDE 54569116737 Active Ian Valdez MD Active OMEPRAZOLE 20 MG CPDR 1 tablet by mouth daily OMEPRAZOLE 13993707950 No Longer Active [place] FIGUEROA Active KLONOPIN 0.5 MG TABS 1 TABLET PO PRN CLONAZEPAM 52545485685 No Longer Active [place] FIGUEROA Active MOBIC 7.5 MG TABS 1 tablet by mouthonce a day MELOXICAM 33552726505 No Longer Active [place] FIGUEROA Active ZITHROMAX 1 GM PACK DIRECTED AZITHROMYCIN 33835144980 No Longer Active Ian Valdez MD Active ALBUTEROL SULFATE 0.083 % MARILYN LINDSAY one vial per nebulizer every 4-6 hours as needed ALBUTEROL SULFATE 25075192080 Active Ian Valdez MD Active CHANTIX STARTING MONTH REBEKAH 0.5 MG X 11 & 1 MG X 42 TABS 0.5mg daily for 3 days , then 0.5mg BID for 4 days, then 1mg BID VARENICLINE TARTRATE 13328634778 No Longer Active Ian Valdez MD Active ZITHROMAX 1 GM PACK DIRECTED AZITHROMYCIN 45221961922 No Longer Active Ian Valdez MD Active AURALGAN 1.4-5.5 % SOLN BENZOCAINE-ANTIPYRINE 09548002366 No Longer Active Ian Vladez MD Active PREDNISONE 20 MG TAB 3 tabs daily for 3 days, 2 tab daily for 3 days, 1 tab daily for 2 days, then 1/2 tab dialy for 2 days PREDNISONE 74729047034 No Longer Active Ian Valdez MD Active SIMVASTATIN 40 MG TABS 1 TABLET PO Q HS SIMVASTATIN 11318014827 Active Ian Valdez MD Active SIMVASTATIN 80 MG TABS Take one by mouth daily SIMVASTATIN 99810535899 No Longer Active Ian Valdez MD Active PREDNISONE 20 MG TAB 2 tabs daily for 3 days, 1 tab daily for 3 days, 1/2 tab daily for 2 days PREDNISONE 72855042033 No Longer Active Ian Valdez MD Active ZITHROMAX 250 MG TAB 2 po today, then 1 po q days 2-5 AZITHROMYCIN 64351563723 No Longer Active Ian Valdez MD Active TRAZODONE HCL 100 MG TABS 2 TABS PO Q HS TRAZODONE HCL 70250023830 Active Ian Valdez MD Active ZITHROMAX 250 MG TAB 2 po today, then 1 po q days 2-5 AZITHROMYCIN 67618932368 No Longer Active Ian Valdez MD Active SIMVASTATIN 80 MG TABS Take one by mouth daily SIMVASTATIN 80 MG TABS 172787 SIMVASTATIN Inactive AURALGAN 1.4-5.5 % SOLN AURALGAN 1.4-5.5 % SOLN BENZOCAINE-ANTIPYRINE Inactive ZITHROMAX 1 GM PACK DIRECTED ZITHROMAX 1 GM PACK 464279 AZITHROMYCIN Inactive CHANTIX STARTING MONTH REBEKAH 0.5 MG X 11 & 1 MG X 42 TABS 0.5mg daily for 3 days , then 0.5mg BID for 4 days, then 1mg BID CHANTIX STARTING MONTH REBEKAH 0.5 MG X 11 & 1 MG X 42 TABS VARENICLINE TARTRATE Inactive ZITHROMAX 1 GM PACK DIRECTED ZITHROMAX 1 GM PACK 059133 AZITHROMYCIN Inactive MOBIC 7.5 MG TABS 1 tablet by mouthonce a day MOBIC 7.5 MG TABS 988624 MELOXICAM Inactive KLONOPIN 0.5 MG TABS 1 TABLET PO PRN KLONOPIN 0.5 MG TABS 759159 CLONAZEPAM Inactive CIPRO 500 MG TAB 1 tablet by mouth twice daily CIPRO 500 MG TAB 560845 CIPROFLOXACIN HCL Inactive AZITHROMYCIN 500 MG TABS 1 PO q day x 6 days AZITHROMYCIN 500 MG TABS 0015189 AZITHROMYCIN Inactive CYCLOBENZAPRINE HCL 10 MG TABS 1 PO q 8 hrs PRN muscle spasm 2012 CYCLOBENZAPRINE HCL 10 MG TABS 238125 CYCLOBENZAPRINE HCL Inactive METFORMIN HCL 500 MG [...] bid prn anxiety. XANAX 0.25 MG TABS 235731 ALPRAZOLAM Inactive LAMISIL AT 1 % CREA apply bid to rash LAMISIL AT 1 % CREA 928906 TERBINAFINE HCL Inactive TOPAMAX 25 MG TABS 1 tab po qhs x 1 week, then take 2 tabs po qhs TOPAMAX 25 MG TABS 589793 TOPIRAMATE Inactive TERBINAFINE HCL 1 % CREA Apply bid to rash TERBINAFINE HCL 1 % CREA 157840 TERBINAFINE HCL Inactive ZITHROMAX 250 MG TAB 2 po today, then 1 po q days 2-5 ZITHROMAX 250 MG TAB 8345542 AZITHROMYCIN Inactive ZITHROMAX 250 MG TAB 2 po today, then 1 po q days 2-5 ZITHROMAX 250 MG TAB 0645218 AZITHROMYCIN Inactive PREDNISONE 20 MG TAB 2 tabs daily for 3 days, 1 tab daily for 3 days, 1/2 tab daily for 2 days PREDNISONE 20 MG TAB 226798 PREDNISONE Inactive PREDNISONE 20 MG TAB 3 tabs daily for 3 days, 2 tab daily for 3 days, 1 tab daily for 2 days, then 1/2 tab dialy for 2 days PREDNISONE 20 MG TAB 629609 PREDNISONE Inactive OMEPRAZOLE 20 MG CPDR 1 tablet by mouth daily OMEPRAZOLE 20 MG CPDR 990317 OMEPRAZOLE Inactive PREDNISONE 20 MG TABS 3 qd x 2d, 2 qd x 2d, 1 qd x 2d, 1/2 qd x 2d PREDNISONE 20 MG TABS 379092 PREDNISONE Inactive TERBINAFINE HCL 250 MG TABS 1 qDay TERBINAFINE HCL 250 MG TABS 477036 TERBINAFINE HCL Inactive Advance Directives Directive Description Start Date NO HEROIC MEASURES Immunizations Vaccine Administration Date Value Standard Description Combined Uwvmroktdl-Ingbdow-jfrhabbgc Pertussis (dTpa) Vaccine - Booster 07/05 Boostrix [[id number]] tetanus toxoid, reduced diphtheria toxoid, and acellular [...] 5.3 % 4.3-6.0 sodium, serum 139 mmol/L 621-243 5669/02/24 potassium, serum 4.4 mmol/L 3.5-5.2 chloride, serum [...] 1.44 m[iU]/mL 0.36-3.74 cholesterol, serum 144 mg/dL 477-461 0950/11/19 triglyceride, serum, fasting 172 mg/dL 30-200 HDL cholesterol, serum 30 mg/dL 32-96 LDL cholesterol, serum 80 mg/dL 0-130 sodium, serum 137 mmol/L 967-889 0968/11/19 potassium, serum 4.1 mmol/L 3.5-5.2 chloride, serum 100 mmol/L 98-107 carbon dioxide, venous blood 26.9 mmol/L 21.0-32.0 Lab Report: Lipid Panel - Chemistry cholesterol, serum 118 mg/dL 981-630 1041/02/24 triglyceride, serum, fasting 141 mg/dL 30-200 HDL cholesterol, serum 20 mg/dL 32-96 LDL cholesterol, serum 70 mg/dL 0-130 Office Visit: Consult infertility - Chemistry human chorionic gonadotropin, urine, qualitative (urine test) Negative Encounters Code Encounter Date Provider Facility CPT-85748 Level 3 Est. Patient 15:32:41 HYDROLOGY TEACHER Juan Smith MD [facility] CPT-56383 Level 3 Est. Patient 14:45:01 CDT Eva Ferrara MD PhD [facility]-05695 Level 3 Est. Patient 14:54:10 CDT Ian Valdez MD [facility] CPT-90825 Level 4 Est. Patient 20:36:52 CDT Ian Valdez MD [facility] CPT-97104 Level 4 Est. Patient 11:14:30 HYDROLOGY TEACHER Ian Valdez MD [facility] CPT-87214 Level 3 Est. Patient 19:08:34 HYDROLOGY TEACHER Ian Valdez MD [facility] CPT-27295 Level 3 Est. Patient 13:17:39 HYDROLOGY TEACHER Ian Valdez MD [facility] CPT-22436 Level 4 Est. Patient 18:56:10 CDT Ian Valdez MD [facility] CPT-40472 Level 4 Est. Patient 16:55:56 CDT Ian Valdez MD [facility] CPT-76868 Level 3 Est. Patient 11:27:07 CDT Ian Valdez MD [facility] CPT-22712 Level 3 Est. Patient 15:17:[address] [facility] CPT-13448 Level 4 Est. Patient 15:13:[address] [facility] CPT-36768 Level 3 Est. Patient 14:25:12 HYDROLOGY TEACHER Ian Valdez MD [facility] CPT-61502 Level 3 Est. Patient 10:24:46 CDT Ian Valdez MD [facility] CPT-76450 Level 3 Est. Patient 15:34:19 CDT Ian Valdez MD [facility] CPT-81549 Level 3 Est. Patient 14:22:41 CDT Ian Valdez MD [facility] CPT-25092 Level 3 Est. Patient 15:07:22 HYDROLOGY TEACHER Ian Valdez MD [facility] CPT-14962 Level 3 New Patient 09:06:43 HYDROLOGY TEACHER Ian Valdez MD [facility] CPT-86751 Level 3 Est. Patient 15:09:00 HYDROLOGY TEACHER Ian Valdez MD [facility] Procedures Code Procedure Name Date Entry Date Standard Description CPT-J1885 Toradol 60 mg (Ketorolac) 15:37:32 CDT CPT-07056 Abx/Therapy Injection 15:37:32 CDT CPT-J1885 Toradol 60 mg (Ketorolac) 14:45:01 CDT CPT-OV Office Visit 15:19:52 CDT CPT-OV Office Visit 10:41:01 CDT CPT-40036 Core biop breast wo imaging 16:50:06 CDT CPT-OV Office Visit 16:50:05 CDT CPT-21522 UHCG (floor use only) 13:39:36 CDT CPT-59539 Nexplanon Placement 10:11:48 CDT CPT-J7307 Nexplanon (Implant) 10:11:48 CDT CPT-OV Office Visit 09:54:18 CDT CPT-18096 EKG Trac and Interp 16:50:19 CDT CPT-29725 Venipuncture Draw Fee 15:06:08 CDT CPT-J2930 Solu Medrol 125 mg (Methyl Prednisolone Sodium Succinate) 12:44:46 CDT CPT-J1055 Depo Provera 150 mg (Medroxyprogesterone) 12:44:46 CDT CPT-86337 Abx/Therapy Injection 12:44:46 CDT CPT-J1055 Depo Provera 150 mg (Medroxyprogesterone) 14:28:41 CDT CPT-J2930 Solu Medrol 125 mg (Methyl Prednisolone Sodium Succinate) 14:22:41 CDT CPT-33408 Administration single or combination vaccine inc oral 10 :08:06 CDT CPT-43953 Tdap 10:08:06 CDT CPT-G0402 Wlcm To Medicare Ex 22:17:30 CDT CPT-29563 Venipuncture Draw Fee 10:33:07 HYDROLOGY TEACHER CPT-36090 Venipuncture Draw Fee 10:17:37 HYDROLOGY TEACHER CPT-G0403 EKG Wl To Medicare 22:17:30 CDT
--- OUTSIDE RECORDS SUMMARY | 2018-07-17 22:21 | XMS REPORT ---
Author Author [facility] Medical Staff Organization [email or web address] Address [address] [place], [place] [address] Phone [phone] Care Team Providers Care Pole Inspector Name Role Phone FARHAD SETHI MD PP [phone] Summary purpose TRANSITION OF CARE AUTO GENERATION [...]
--- OUTSIDE RECORDS SUMMARY | 2018-07-17 22:22 | XMS REPORT | Clinical Summary ---
Author Author Admin, ARIAN Organization [facility] Address Unknown Phone Unavailable Allergies, Adverse Reactions, [...] MULTIVITAMINS CAPS 1 tablet daily MULTIPLE VITAMIN 68852055368 Active Juan Smith MD Active CYCLOBENZAPRINE HCL 10 MG TABS 1/2 - 1 tab by mouth three times daily if needed for spasms/pain CYCLOBENZAPRINE HCL 68861315922 Active Eva Ferrara MD PhD Active GLUCOPHAGE 500 MG TABS 1 tab BID with morning and night meals METFORMIN HCL 81064451196 Active Eva Ferrara MD PhD Active PROGESTERONE MICRONIZED 100 MG CAPS 2 caps daily day 16 thru 25 of cycle 2013 PROGESTERONE MICRONIZED 60880290372 Active Eva Ferrara MD PhD Active TERBINAFINE HCL 1 % CREA Apply bid to rash TERBINAFINE HCL 76754074412 No Longer Active Eva Ferrara MD PhD Active TOPAMAX 25 MG TABS 1 tab po qhs x 1 week, then take 2 tabs po qhs TOPIRAMATE 44135823935 No Longer Active Thom Gilbert MD Active ULTRAM 50 MG TAB take 1 tab po q6hrs prn pain TRAMADOL HCL 22542406394 Active Ian Valdez MD Active LAMISIL AT 1 % CREA apply bid to rash TERBINAFINE HCL 28328119662 No Longer Active Thom Gilbert MD Active TERBINAFINE HCL 250 MG TABS 1 qDay TERBINAFINE HCL 62652172970 No Longer Active Ian Valdez MD Active XANAX 0.25 MG TABS take 1 tab po bid prn anxiety. ALPRAZOLAM 90789994960 No Longer Active Ian Valdez MD Active FISH OIL 1000 MG CAPS 2 caps PO once daily at bedtime OMEGA-3 FATTY ACIDS 94300425924 No Longer Active Ian Valdez MD Active KLOR-CON M20 20 MEQ CR-TABS take 1 tab po qday with lasix POTASSIUM CHLORIDE GALILEO CR 53336379990 Active Ian Valdez MD Active LASIX 20 MG TAB 1 tablet by mouth daily prn swelling FUROSEMIDE 17897875517 Active Ian Valdez MD Active FLONASE 50 MCG/ACT SUSP 2 puffs in each nostril once daily at bedtime FLUTICASONE PROPIONATE 75430387999 Active Ian Valdez MD Active CVS MELATONIN 3 MG TABS 2 tabs PO at bedtime MELATONIN 13334811370 Active Ian Valdez MD Active PULMICORT FLEXHALER 180 MCG/ACT AEPB 2 INH BID BUDESONIDE 80754616730 No Longer Active Ian Valdez MD Active METFORMIN HCL 500 MG TB24 1 TAB PO Q HS METFORMIN HCL 01828924983 No Longer Active Ian Valdez MD Active CYCLOBENZAPRINE HCL 10 MG TABS 1 PO q 8 hrs PRN muscle spasm 2012 CYCLOBENZAPRINE HCL 08780110910 No Longer Active Ian Valdez MD Active AZITHROMYCIN 500 MG TABS 1 PO q day x 6 days AZITHROMYCIN 55344768142 No Longer Active Ian Valdez MD Active CIPRO 500 MG TAB 1 tablet by mouth twice daily CIPROFLOXACIN HCL 75959845540 No Longer Active Ian Valdez MD Active PREDNISONE 20 MG TABS 3 qd x 2d, 2 qd x 2d, 1 qd x 2d, 1/2 qd x 2d PREDNISONE 09097741103 No Longer Active Law FIGUEROA Active CELEXA 40 MG TABS 2 PO DAILY CITALOPRAM HYDROBROMIDE 71521180768 Active Ian Valdez MD Active OMEPRAZOLE 20 MG CPDR 1 tablet by mouth daily OMEPRAZOLE 29204097061 No Longer Active Wellington FIGUEROA Active KLONOPIN 0.5 MG TABS 1 TABLET PO PRN CLONAZEPAM 01156258683 No Longer Active Wellington FIGUEROA Active MOBIC 7.5 MG TABS 1 tablet by mouthonce a day MELOXICAM 59911782498 No Longer Active [place] FIGUEROA Active ZITHROMAX 1 GM PACK DIRECTED AZITHROMYCIN 23816524647 No Longer Active Ian Valdez MD Active ALBUTEROL SULFATE 0.083 % NEBU SOLN one vial per nebulizer every 4-6 hours as needed ALBUTEROL SULFATE 63315894211 Active Ian Valdez MD Active CHANTIX STARTING MONTH REBEKAH 0.5 MG X 11 & 1 MG X 42 TABS 0.5mg daily for 3 days , then 0.5mg BID for 4 days, then 1mg BID VARENICLINE TARTRATE 42974316965 No Longer Active Ian Valdez MD Active ZITHROMAX 1 GM PACK DIRECTED AZITHROMYCIN 05322605089 No Longer Active Ian Valdez MD Active AURALGAN 1.4-5.5 % SOLN BENZOCAINE-ANTIPYRINE 11138435621 No Longer Active Ian Valdez MD Active PREDNISONE 20 MG TAB 3 tabs daily for 3 days, 2 tab daily for 3 days, 1 tab daily for 2 days, then 1/2 tab dialy for 2 days PREDNISONE 22246733982 No Longer Active Ian Valdez MD Active SIMVASTATIN 40 MG TABS 1 TABLET PO Q HS SIMVASTATIN 84755662400 Active Ian Valdez MD Active SIMVASTATIN 80 MG TABS Take one by mouth daily SIMVASTATIN 75012949746 No Longer Active Ian Valdez MD Active PREDNISONE 20 MG TAB 2 tabs daily for 3 days, 1 tab daily for 3 days, 1/2 tab daily for 2 days PREDNISONE 48651359488 No Longer Active Ian Valdez MD Active ZITHROMAX 250 MG TAB 2 po today, then 1 po q days 2-5 AZITHROMYCIN 54599701259 No Longer Active Ian Valdez MD Active TRAZODONE HCL 100 MG TABS 2 TABS PO Q HS TRAZODONE HCL 48279947479 Active Ian Valdez MD Active ZITHROMAX 250 MG TAB 2 po today, then 1 po q days 2-5 AZITHROMYCIN 30232188741 No Longer Active Ian Valdez MD Active SIMVASTATIN 80 MG TABS Take one by mouth daily SIMVASTATIN 80 MG TABS 493395 SIMVASTATIN Inactive AURALGAN 1.4-5.5 % SOLN AURALGAN 1.4-5.5 % SOLN BENZOCAINE-ANTIPYRINE Inactive ZITHROMAX 1 GM PACK DIRECTED ZITHROMAX 1 GM PACK 124925 AZITHROMYCIN Inactive CHANTIX STARTING MONTH REBEKAH 0.5 MG X 11 & 1 MG X 42 TABS 0.5mg daily for 3 days , then 0.5mg BID for 4 days, then 1mg BID CHANTIX STARTING MONTH REBEKAH 0.5 MG X 11 & 1 MG X 42 TABS VARENICLINE TARTRATE Inactive ZITHROMAX 1 GM PACK DIRECTED ZITHROMAX 1 GM PACK 341697 AZITHROMYCIN Inactive MOBIC 7.5 MG TABS 1 tablet by mouthonce a day MOBIC 7.5 MG TABS 383252 MELOXICAM Inactive KLONOPIN 0.5 MG TABS 1 TABLET PO PRN KLONOPIN 0.5 MG TABS 131126 CLONAZEPAM Inactive CIPRO 500 MG TAB 1 tablet by mouth twice daily CIPRO 500 MG TAB 409592 CIPROFLOXACIN HCL Inactive AZITHROMYCIN 500 MG TABS 1 PO q day x 6 days AZITHROMYCIN 500 MG TABS 8383928 AZITHROMYCIN Inactive CYCLOBENZAPRINE HCL 10 MG TABS 1 PO q 8 hrs PRN muscle spasm 2012 CYCLOBENZAPRINE HCL 10 MG TABS 846555 CYCLOBENZAPRINE HCL Inactive METFORMIN HCL 500 MG [...] bid prn anxiety. XANAX 0.25 MG TABS 099129 ALPRAZOLAM Inactive LAMISIL AT 1 % CREA apply bid to rash LAMISIL AT 1 % CREA 897117 TERBINAFINE HCL Inactive TOPAMAX 25 MG TABS 1 tab po qhs x 1 week, then take 2 tabs po qhs TOPAMAX 25 MG TABS 472244 TOPIRAMATE Inactive TERBINAFINE HCL 1 % CREA Apply bid to rash TERBINAFINE HCL 1 % CREA 349924 TERBINAFINE HCL Inactive ZITHROMAX 250 MG TAB 2 po today, then 1 po q days 2-5 ZITHROMAX 250 MG TAB 5855216 AZITHROMYCIN Inactive ZITHROMAX 250 MG TAB 2 po today, then 1 po q days 2-5 ZITHROMAX 250 MG TAB 7951526 AZITHROMYCIN Inactive PREDNISONE 20 MG TAB 2 tabs daily for 3 days, 1 tab daily for 3 days, 1/2 tab daily for 2 days PREDNISONE 20 MG TAB 734181 PREDNISONE Inactive PREDNISONE 20 MG TAB 3 tabs daily for 3 days, 2 tab daily for 3 days, 1 tab daily for 2 days, then 1/2 tab dialy for 2 days PREDNISONE 20 MG TAB 150096 PREDNISONE Inactive OMEPRAZOLE 20 MG CPDR 1 tablet by mouth daily OMEPRAZOLE 20 MG CPDR 335619 OMEPRAZOLE Inactive PREDNISONE 20 MG TABS 3 qd x 2d, 2 qd x 2d, 1 qd x 2d, 1/2 qd x 2d PREDNISONE 20 MG TABS 351622 PREDNISONE Inactive TERBINAFINE HCL 250 MG TABS 1 qDay TERBINAFINE HCL 250 MG TABS 496163 TERBINAFINE HCL Inactive Advance Directives Directive Description Start Date NO HEROIC MEASURES Immunizations Vaccine Administration Date Value Standard Description Boostrix (Tetanus toxoid, reduced diphtheria toxoid and acellular pertussis vaccine, adsorbed), booster Boostrix [[id number]] tetanus toxoid, reduced diphtheria toxoid, and acellular [...] 5.3 % 4.3-6.0 sodium, serum 139 mmol/L 193-520 6122/02/24 potassium, serum 4.4 mmol/L 3.5-5.2 chloride, serum [...] 1.44 m[iU]/mL 0.36-3.74 cholesterol, serum 144 mg/dL 626-196 0651/11/19 triglyceride, serum, fasting 172 mg/dL 30-200 HDL cholesterol, serum 30 mg/dL 32-96 LDL cholesterol, serum 80 mg/dL 0-130 sodium, serum 137 mmol/L 584-336 9609/11/19 potassium, serum 4.1 mmol/L 3.5-5.2 chloride, serum [...] Panel - Chemistry cholesterol, serum 118 mg/dL 300-037 5034/02/24 triglyceride, serum, fasting 141 mg/dL 30-200 HDL cholesterol, serum 20 mg/dL 32-96 LDL cholesterol, serum 70 mg/dL 0-130 Office Visit: Consult infertility - Chemistry human chorionic gonadotropin, urine, qualitative (urine test) Negative Encounters Code Encounter Date Provider Facility CPT-03873 Level 3 Est. Patient 15:32:41 WAISTBAND SETTER LOCKSTITCH Juan Smith MD [facility] CPT-26177 Level 3 Est. Patient 14:45:01 CDT Eva Ferrara MD PhD [facility] CPT-71338 Level 3 Est. Patient 14:54:10 CDT Ian Valdez MD [facility]-19926 Level 4 Est. Patient 20:36:52 CDT Ian Valdez MD [facility]-86006 Level 4 Est. Patient 11:14:30 WAISTBAND SETTER LOCKSTITCH Ian Valdez MD [facility]-72116 Level 3 Est. Patient 19:08:34 WAISTBAND SETTER LOCKSTITCH Ian Valdez MD [facility]-19901 Level 3 Est. Patient 13:17:39 WAISTBAND SETTER LOCKSTITCH Ian Valdez MD [facility]-03348 Level 4 Est. Patient 18:56:10 CDT Ian Valdez MD [facility]-84786 Level 4 Est. Patient 16:55:56 CDT Ian Valdez MD [facility]-04198 Level 3 Est. Patient 11:27:07 CDT Ian Valdez MD [facility]-77082 Level 3 Est. Patient 15:17:44 CDT Law Rosas [facility]-80464 Level 4 Est. Patient 15:13:53 CDT Wellington Muniz [facility]-17076 Level 3 Est. Patient 14:25:12 WAISTBAND SETTER LOCKSTITCH Ian Valdez MD [facility]-39548 Level 3 Est. Patient 10:24:46 CDT Ian Valdez MD [facility]-89799 Level 3 Est. Patient 15:34:19 CDT Ian Valdez MD [facility]-45428 Level 3 Est. Patient 14:22:41 CDT Ian Valdez MD [facility]-58763 Level 3 Est. Patient 15:07:22 WAISTBAND SETTER LOCKSTITCH Ian Valdez MD [facility] CPT-08928 Level 3 New Patient 09:06:43 WAISTBAND SETTER LOCKSTITCH Ian Valdez MD [facility] CPT-51208 Level 3 Est. Patient 15:09:00 WAISTBAND SETTER LOCKSTITCH Ian Valdez MD [facility] Procedures Code Procedure Name Date Entry Date Standard Description CPT-OV Office Visit 15:49:26 WAISTBAND SETTER LOCKSTITCH CPT-J1885 Toradol 60 mg (Ketorolac) 15:37:32 CDT CPT-78506 Abx/Therapy Injection 15:37:32 CDT CPT-J1885 Toradol 60 mg (Ketorolac) 14:45:01 CDT CPT-OV Office Visit 15:19:52 CDT CPT-OV Office Visit 10:41:01 CDT CPT-18690 Core biop breast wo imaging 16:50:06 CDT CPT-OV Office Visit 16:50:05 CDT CPT-44666 UHCG (floor use only) 13:39:36 CDT CPT-42466 Nexplanon Placement 10:11:48 CDT CPT-J7307 Nexplanon (Implant) 10:11:48 CDT CPT-OV Office Visit 09:54:18 CDT CPT-21964 EKG Trac and Interp 16:50:19 CDT CPT-22715 Venipuncture Draw Fee 15:06:08 CDT CPT-J2930 Solu Medrol 125 mg (Methyl Prednisolone Sodium Succinate) 12:44:46 CDT CPT-J1055 Depo Provera 150 mg (Medroxyprogesterone) 12:44:46 CDT CPT-13763 Abx/Therapy Injection 12:44:46 CDT CPT-J1055 Depo Provera 150 mg (Medroxyprogesterone) 14:28:41 CDT CPT-J2930 Solu Medrol 125 mg (Methyl Prednisolone Sodium Succinate) 14:22:41 CDT CPT-03281 Administration single or combination vaccine inc oral 10 :08:06 CDT CPT-43526 Tdap 10:08:06 CDT CPT-G0402 Wlcm To Medicare Ex 22:17:30 CDT CPT-31424 Venipuncture Draw Fee 10:33:07 WAISTBAND SETTER LOCKSTITCH CPT-68875 Venipuncture Draw Fee 10:17:37 WAISTBAND SETTER LOCKSTITCH CPT-G0403 EKG Wl To Medicare 22:17:30 CDT
--- OUTSIDE RECORDS SUMMARY | 2018-07-17 22:24 | XMS REPORT ---
Author Author [facility] Medical Staff Organization [place] Address [address] [place], [place] [id number] Phone [phone] Care Team Providers Care Slot Manager Name Role Phone FARHAD SETHI MD PP [phone] Summary purpose TRANSITION OF CARE AUTO GENERATION [...]
--- OUTSIDE RECORDS SUMMARY | 2018-07-17 22:24 | XMS REPORT | Clinical Summary ---
Author Author Admin, ARIAN Organization [facility] Address Unknown Phone Allergies, Adverse Reactions, Alerts [...] CREA apply bid to rash TERBINAFINE HCL 61392454452 Active Ian Valdez MD Active TERBINAFINE HCL 250 MG TABS 1 qDay TERBINAFINE HCL 45677162303 No Longer Active Ian Valdez MD Active TOPAMAX 25 MG TABS 1 tab po qhs x 1 week, then take 2 tabs po qhs TOPIRAMATE 36790091171 Active Ian Valdez MD Active XANAX 0.25 MG TABS take 1 tab po bid prn anxiety. ALPRAZOLAM 79326931117 No Longer Active Ian Valdez MD Active FISH OIL 1000 MG CAPS 2 caps PO once daily at bedtime OMEGA-3 FATTY ACIDS 28424194239 No Longer Active Ian Valdez MD Active KLOR-CON M20 20 MEQ CR-TABS take 1 tab po qday with lasix POTASSIUM CHLORIDE GALILEO CR 87506876217 Active Ian Valdez MD Active LASIX 20 MG TAB 1 tablet by mouth daily prn swelling FUROSEMIDE 99384119185 Active Ian Valdez MD Active FLONASE 50 MCG/ACT SUSP 2 puffs in each nostril once daily at bedtime FLUTICASONE PROPIONATE 63373741359 Active Ian Valdez MD Active CVS MELATONIN 3 MG TABS 2 tabs PO at bedtime MELATONIN 41421653627 Active Ian Valdez MD Active PULMICORT FLEXHALER 180 MCG/ACT AEPB 2 INH BID BUDESONIDE 26522988242 No Longer Active Ian Valdez MD Active METFORMIN HCL 500 MG TB24 1 TAB PO Q HS METFORMIN HCL 93381620565 No Longer Active Ian Valdez MD Active CYCLOBENZAPRINE HCL 10 MG TABS 1 PO q 8 hrs PRN muscle spasm 2012 CYCLOBENZAPRINE HCL 99148598206 No Longer Active Ian Valdez MD Active AZITHROMYCIN 500 MG TABS 1 PO q day x 6 days AZITHROMYCIN 80974859255 No Longer Active Ian Valdez MD Active CIPRO 500 MG TAB 1 tablet by mouth twice daily CIPROFLOXACIN HCL 41236222854 No Longer Active Ian Valdez MD Active PREDNISONE 20 MG TABS 3 qd x 2d, 2 qd x 2d, 1 qd x 2d, 1/2 qd x 2d PREDNISONE 09339256674 No Longer Active Law FIGUEROA Active CELEXA 40 MG TABS 2 PO DAILY CITALOPRAM HYDROBROMIDE 55250168884 Active Ian Valdez MD Active OMEPRAZOLE 20 MG CPDR 1 tablet by mouth daily OMEPRAZOLE 45920059956 No Longer Active [place] FIGUEROA Active KLONOPIN 0.5 MG TABS 1 TABLET PO PRN CLONAZEPAM 27221850851 No Longer Active [place] FIGUEROA Active MOBIC 7.5 MG TABS 1 tablet by mouthonce a day MELOXICAM 78406411789 No Longer Active [place] FIGUEROA Active ZITHROMAX 1 GM PACK DIRECTED AZITHROMYCIN 64454858907 No Longer Active Ian Valdez MD Active ALBUTEROL SULFATE 0.083 % NEBU SOLN one vial per nebulizer every 4-6 hours as needed ALBUTEROL SULFATE 78065667949 Active Ian Valdez MD Active CHANTIX STARTING MONTH REBEKAH 0.5 MG X 11 & 1 MG X 42 TABS 0.5mg daily for 3 days , then 0.5mg BID for 4 days, then 1mg BID VARENICLINE TARTRATE 86067594075 No Longer Active Ian Valdez MD Active ZITHROMAX 1 GM PACK DIRECTED AZITHROMYCIN 09005155894 No Longer Active Ian Valdez MD Active AURALGAN 1.4-5.5 % SOLN BENZOCAINE-ANTIPYRINE 91315534154 No Longer Active Ian Valdez MD Active PREDNISONE 20 MG TAB 3 tabs daily for 3 days, 2 tab daily for 3 days, 1 tab daily for 2 days, then 1/2 tab dialy for 2 days PREDNISONE 67416054074 No Longer Active Ian Valdez MD Active SIMVASTATIN 40 MG TABS 1 TABLET PO Q HS SIMVASTATIN 63005374609 Active Ian Valdez MD Active SIMVASTATIN 80 MG TABS Take one by mouth daily SIMVASTATIN 97995732628 No Longer Active Ian Valdez MD Active PREDNISONE 20 MG TAB 2 tabs daily for 3 days, 1 tab daily for 3 days, 1/2 tab daily for 2 days PREDNISONE 33814779531 No Longer Active Ian Valdez MD Active ZITHROMAX 250 MG TAB 2 po today, then 1 po q days 2-5 AZITHROMYCIN 08206826761 No Longer Active Ian Valdez MD Active TRAZODONE HCL 100 MG TABS 2 TABS PO Q HS TRAZODONE HCL 82627238522 Active Ian Valdez MD Active ZITHROMAX 250 MG TAB 2 po today, then 1 po q days 2-5 AZITHROMYCIN 60202744781 No Longer Active Ian Valdez MD Active SIMVASTATIN 80 MG TABS Take one by mouth daily SIMVASTATIN 80 MG TABS 833073 SIMVASTATIN Inactive AURALGAN 1.4-5.5 % SOLN AURALGAN 1.4-5.5 % SOLN 1211066 BENZOCAINE-ANTIPYRINE Inactive ZITHROMAX 1 GM PACK DIRECTED ZITHROMAX 1 GM PACK 369674 AZITHROMYCIN Inactive CHANTIX STARTING MONTH REBEKAH 0.5 MG X 11 & 1 MG X 42 TABS 0.5mg daily for 3 days , then 0.5mg BID for 4 days, then 1mg BID CHANTIX STARTING MONTH REBEKAH 0.5 MG X 11 & 1 MG X 42 TABS VARENICLINE TARTRATE Inactive ZITHROMAX 1 GM PACK DIRECTED ZITHROMAX 1 GM PACK 072118 AZITHROMYCIN Inactive MOBIC 7.5 MG TABS 1 tablet by mouthonce a day MOBIC 7.5 MG TABS 593686 MELOXICAM Inactive KLONOPIN 0.5 MG TABS 1 TABLET PO PRN KLONOPIN 0.5 MG TABS 876881 CLONAZEPAM Inactive CIPRO 500 MG TAB 1 tablet by mouth twice daily CIPRO 500 MG TAB 300509 CIPROFLOXACIN HCL Inactive AZITHROMYCIN 500 MG TABS 1 PO q day x 6 days AZITHROMYCIN 500 MG TABS 5860940 AZITHROMYCIN Inactive CYCLOBENZAPRINE HCL 10 MG TABS 1 PO q 8 hrs PRN muscle spasm 2012 CYCLOBENZAPRINE HCL 10 MG TABS 788931 CYCLOBENZAPRINE HCL Inactive METFORMIN HCL 500 MG [...] bid prn anxiety. XANAX 0.25 MG TABS 145978 ALPRAZOLAM Inactive ZITHROMAX 250 MG TAB 2 po today, then 1 po q days 2-5 ZITHROMAX 250 MG TAB 8644468 AZITHROMYCIN Inactive ZITHROMAX 250 MG TAB 2 po today, then 1 po q days 2-5 ZITHROMAX 250 MG TAB 6122004 AZITHROMYCIN Inactive PREDNISONE 20 MG TAB 2 tabs daily for 3 days, 1 tab daily for 3 days, 1/2 tab daily for 2 days PREDNISONE 20 MG TAB 038369 PREDNISONE Inactive PREDNISONE 20 MG TAB 3 tabs daily for 3 days, 2 tab daily for 3 days, 1 tab daily for 2 days, then 1/2 tab dialy for 2 days PREDNISONE 20 MG TAB 497164 PREDNISONE Inactive OMEPRAZOLE 20 MG CPDR 1 tablet by mouth daily OMEPRAZOLE 20 MG CPDR 369053 OMEPRAZOLE Inactive PREDNISONE 20 MG TABS 3 qd x 2d, 2 qd x 2d, 1 qd x 2d, 1/2 qd x 2d PREDNISONE 20 MG TABS 699729 PREDNISONE Inactive TERBINAFINE HCL 250 MG TABS 1 qDay TERBINAFINE HCL 250 MG TABS 506868 TERBINAFINE HCL Inactive Advance Directives Directive Description Start Date NO HEROIC MEASURES Immunizations Vaccine Administration Date Value Standard Description Combined Qublrgmztz-Kesexcb-zxjgwpnzo Pertussis (dTpa) Vaccine - Booster 07/05 Boostrix [[id number]] tetanus toxoid, reduced diphtheria toxoid, and acellular [...] Panel - Chemistry sodium, serum 137 mmol/L 542-455 7568/07/25 potassium, serum 3.7 mmol/L 3.5-5.2 chloride, serum 102 mmol/L 98-107 carbon dioxide, venous blood 27.3 mmol/L 21.0-32.0 blood glucose 85 mg/dL 65-110 calcium, serum 8.5 mg/dL 8.5-10.1 urea nitrogen, blood 7 mg/dL 7-18 creatinine, serum 0.80 mg/dL 0.60-1.30 Lab Report: CBC, HGBA1C, Comp. Metabolic Panel - Chemistry hemoglobin A1C, blood, as % of total hemoglobin 5.3 % 4.3-6.0 sodium, serum 139 mmol/L 344-521 3793/02/24 potassium, serum 4.4 mmol/L 3.5-5.2 chloride, [...] Panel - Chemistry cholesterol, serum 118 mg/dL 056-668 9843/02/24 triglyceride, serum, fasting 141 mg/dL 30-200 HDL cholesterol, serum 20 mg/dL 32-96 LDL cholesterol, serum 70 mg/dL 0-130 Lab Report: Lipid Panel, Comp. Metabolic Panel, MICROALBUMIN, HGBA1C - Chemistry cholesterol, serum 172 mg/dL 252-391 0898/08/16 triglyceride, serum, fasting 267 mg/dL 30-200 HDL cholesterol, serum 22 mg/dL 32-96 LDL cholesterol, serum 97 mg/dL 0-130 sodium, serum 141 mmol/L 086-164 0231/08/16 potassium, serum 4.2 mmol/L 3.5-5.2 chloride, serum [...] Negative Encounters Code Encounter Date Provider Facility CPT-34461 Level 3 Est. Patient 14:54:10 CDT Ian Valdez MD [facility] CPT-97148 Level 4 Est. Patient 20:36:52 CDT Ian Valdez MD [facility] CPT-09019 Level 4 Est. Patient 11:14:30 DIRECTOR OF TEACHING AND LEARNING Ian Valdez MD [facility] CPT-02527 Level 3 Est. Patient 19:08:34 DIRECTOR OF TEACHING AND LEARNING Ian Valdez MD [facility] CPT-44860 Level 3 Est. Patient 13:17:39 DIRECTOR OF TEACHING AND LEARNING Ian Valdez MD [facility] CPT-63611 Level 4 Est. Patient 18:56:10 CDT Ian Valdez MD [facility] CPT-52061 Level 4 Est. Patient 16:55:56 CDT Ian Valdez MD [facility] CPT-46529 Level 3 Est. Patient 11:27:07 CDT Ian Valdez MD [facility] CPT-32390 Level 3 Est. Patient 15:17:44 CDT Law Rosas [facility] CPT-08532 Level 4 Est. Patient 15:13:53 CDT Wellington Muniz PA [facility] CPT-99321 Level 3 Est. Patient 14:25:12 DIRECTOR OF TEACHING AND LEARNING Ian Valdez MD [facility] CPT-61625 Level 3 Est. Patient 10:24:46 CDT Ian Valdez MD [facility] CPT-32433 Level 3 Est. Patient 15:34:19 CDT Ian Valdez MD [facility] CPT-31863 Level 3 Est. Patient 14:22:41 CDT Ian Valdez MD [facility] CPT-60380 Level 3 Est. Patient 15:07:22 DIRECTOR OF TEACHING AND LEARNING Ian Valdez MD [facility] CPT-22744 Level 3 New Patient 09:06:43 DIRECTOR OF TEACHING AND LEARNING Ian Valdez MD [facility] CPT-82695 Level 3 Est. Patient 15:09:00 DIRECTOR OF TEACHING AND LEARNING Ian Valdez MD [facility] Procedures Code Procedure Name Date Entry Date Standard Description CPT-38760 UHCG (floor use only) 13:39:36 CDT CPT-82035 Nexplanon Placement 10:11:48 CDT CPT-J7307 Nexplanon (Implant) 10:11:48 CDT CPT-OV Office Visit 09:54:18 CDT CPT-39601 EKG Trac and Interp 16:50:19 CDT CPT-01384 Venipuncture Draw Fee 15:06:08 CDT CPT-J2930 Solu Medrol 125 mg (Methyl Prednisolone Sodium Succinate) 12:44:46 CDT CPT-J1055 Depo Provera 150 mg (Medroxyprogesterone) 12:44:46 CDT CPT-93408 Abx/Therapy Injection 12:44:46 CDT CPT-J1055 Depo Provera 150 mg (Medroxyprogesterone) 14:28:41 CDT CPT-J2930 Solu Medrol 125 mg (Methyl Prednisolone Sodium Succinate) 14:22:41 CDT CPT-13536 Administration single or combination vaccine inc oral 10 :08:06 CDT CPT-34770 Tdap 10:08:06 CDT CPT-G0402 Wlcm To Medicare Ex 22:17:30 CDT CPT-04183 Venipuncture Draw Fee 10:33:07 DIRECTOR OF TEACHING AND LEARNING CPT-85848 Venipuncture Draw Fee 10:17:37 DIRECTOR OF TEACHING AND LEARNING CPT-G0403 EKG [facility] To Medicare 22:17:30 CDT
--- OUTSIDE RECORDS SUMMARY | 2018-07-17 22:25 | XMS REPORT | Clinical Summary ---
Author Author Admin, ARIAN Organization [facility] Address Unknown Phone Unavailable Allergies, Adverse [...] unspecified KNEE PAIN, RIGHT, CHRONIC 719.46 Inactive hTom Gilbert MD Pain in joint involving lower [...] cap by mouth twice daily DOXYCYCLINE HYCLATE 36470973437 No Longer Active Najma Vaughn SAMI Active MULTIVITAMINS CAPS 1 tablet daily MULTIPLE VITAMIN 12977643238 Active Juan Smith MD Active CYCLOBENZAPRINE HCL 10 MG TABS 1/2 - 1 tab by mouth three times daily if needed for spasms/pain CYCLOBENZAPRINE HCL 97895619974 Active Ian Valdez MD Active GLUCOPHAGE 500 MG TABS 1 tab BID with morning and night meals METFORMIN HCL 56920639767 Active Eva Ferrara MD PhD Active PROGESTERONE MICRONIZED 100 MG CAPS 2 caps daily day 16 thru 25 of cycle 2013 PROGESTERONE MICRONIZED 08702587135 Active Eva Ferrara MD PhD Active TERBINAFINE HCL 1 % CREA Apply bid to rash TERBINAFINE HCL 75037068947 No Longer Active Eva Ferrara MD PhD Active TOPAMAX 25 MG TABS 1 tab po qhs x 1 week, then take 2 tabs po qhs TOPIRAMATE 50774318096 No Longer Active Thom Gilbert MD Active ULTRAM 50 MG TAB take 1 tab po q6hrs prn pain TRAMADOL HCL 79902206028 Active Ian Valdez MD Active LAMISIL AT 1 % CREA apply bid to rash TERBINAFINE HCL 73769776652 No Longer Active Thom Gilbert MD Active TERBINAFINE HCL 250 MG TABS 1 qDay TERBINAFINE HCL 02992215757 No Longer Active Ian Valdez MD Active XANAX 0.25 MG TABS take 1 tab po bid prn anxiety. ALPRAZOLAM 38052170987 No Longer Active Ian Valdez MD Active FISH OIL 1000 MG CAPS 2 caps PO once daily at bedtime OMEGA-3 FATTY ACIDS 40287129650 No Longer Active Ian Valdez MD Active KLOR-CON M20 20 MEQ CR-TABS take 1 tab po qday with lasix POTASSIUM CHLORIDE GALILEO CR 43506998510 Active Ian Valdez MD Active LASIX 20 MG TAB 1 tablet by mouth daily prn swelling FUROSEMIDE 28856856550 Active Ian Valdez MD Active FLONASE 50 MCG/ACT SUSP 2 puffs in each nostril once daily at bedtime FLUTICASONE PROPIONATE 46231286073 Active Ian Valdez MD Active CVS MELATONIN 3 MG TABS 2 tabs PO at bedtime MELATONIN 28789822066 Active Ian Valdez MD Active PULMICORT FLEXHALER 180 MCG/ACT AEPB 2 INH BID BUDESONIDE 48451178101 No Longer Active Ian Valdez MD Active METFORMIN HCL 500 MG TB24 1 TAB PO Q HS METFORMIN HCL 72074325034 No Longer Active Ian Valdez MD Active CYCLOBENZAPRINE HCL 10 MG TABS 1 PO q 8 hrs PRN muscle spasm 2012 CYCLOBENZAPRINE HCL 28539328636 No Longer Active Ian Valdez MD Active AZITHROMYCIN 500 MG TABS 1 PO q day x 6 days AZITHROMYCIN 54806013368 No Longer Active Ian Valdez MD Active CIPRO 500 MG TAB 1 tablet by mouth twice daily CIPROFLOXACIN HCL 22260701856 No Longer Active Ian Valdez MD Active PREDNISONE 20 MG TABS 3 qd x 2d, 2 qd x 2d, 1 qd x 2d, 1/2 qd x 2d PREDNISONE 63873254189 No Longer Active Law FIGUEROA Active CELEXA 40 MG TABS 2 PO DAILY CITALOPRAM HYDROBROMIDE 42119136519 Active Ian Valdez MD Active OMEPRAZOLE 20 MG CPDR 1 tablet by mouth daily OMEPRAZOLE 23052515952 No Longer Active [place] FIGUEROA Active KLONOPIN 0.5 MG TABS 1 TABLET PO PRN CLONAZEPAM 43090228258 No Longer Active [place] FIGUEROA Active MOBIC 7.5 MG TABS 1 tablet by mouthonce a day MELOXICAM 91517044054 No Longer Active [place] FIGUEROA Active ZITHROMAX 1 GM PACK DIRECTED AZITHROMYCIN 51117392299 No Longer Active Ian Valdez MD Active ALBUTEROL SULFATE 0.083 % NEBU SOLN one vial per nebulizer every 4-6 hours as needed ALBUTEROL SULFATE 56058395844 Active Ian Valdez MD Active CHANTIX STARTING MONTH REBEKAH 0.5 MG X 11 & 1 MG X 42 TABS 0.5mg daily for 3 days , then 0.5mg BID for 4 days, then 1mg BID VARENICLINE TARTRATE 39509271978 No Longer Active Ian Valdez MD Active ZITHROMAX 1 GM PACK DIRECTED AZITHROMYCIN 72701149149 No Longer Active Ian Valdez MD Active AURALGAN 1.4-5.5 % SOLN BENZOCAINE-ANTIPYRINE 00615177444 No Longer Active Ian Valdez MD Active PREDNISONE 20 MG TAB 3 tabs daily for 3 days, 2 tab daily for 3 days, 1 tab daily for 2 days, then 1/2 tab dialy for 2 days PREDNISONE 20868485794 No Longer Active Ian Valdez MD Active SIMVASTATIN 40 MG TABS 1 TABLET PO Q HS SIMVASTATIN 64681836151 Active Ian Valdez MD Active SIMVASTATIN 80 MG TABS Take one by mouth daily SIMVASTATIN 47603286175 No Longer Active Ian Valdez MD Active PREDNISONE 20 MG TAB 2 tabs daily for 3 days, 1 tab daily for 3 days, 1/2 tab daily for 2 days PREDNISONE 84733341233 No Longer Active Ian Valdez MD Active ZITHROMAX 250 MG TAB 2 po today, then 1 po q days 2-5 AZITHROMYCIN 00691859212 No Longer Active Ian Valdez MD Active TRAZODONE HCL 100 MG TABS 2 TABS PO Q HS TRAZODONE HCL 08249133095 Active Ian Valdez MD Active ZITHROMAX 250 MG TAB 2 po today, then 1 po q days 2-5 AZITHROMYCIN 76564723555 No Longer Active Ian Valdez MD Active SIMVASTATIN 80 MG TABS Take one by mouth daily SIMVASTATIN 80 MG TABS 715278 SIMVASTATIN Inactive AURALGAN 1.4-5.5 % SOLN AURALGAN 1.4-5.5 % SOLN BENZOCAINE-ANTIPYRINE Inactive ZITHROMAX 1 GM PACK DIRECTED ZITHROMAX 1 GM PACK 032530 AZITHROMYCIN Inactive CHANTIX STARTING MONTH REBEKAH 0.5 MG X 11 & 1 MG X 42 TABS 0.5mg daily for 3 days , then 0.5mg BID for 4 days, then 1mg BID CHANTIX STARTING MONTH REBEKAH 0.5 MG X 11 & 1 MG X 42 TABS VARENICLINE TARTRATE Inactive ZITHROMAX 1 GM PACK DIRECTED ZITHROMAX 1 GM PACK 519186 AZITHROMYCIN Inactive MOBIC 7.5 MG TABS 1 tablet by mouthonce a day MOBIC 7.5 MG TABS 495936 MELOXICAM Inactive KLONOPIN 0.5 MG TABS 1 TABLET PO PRN KLONOPIN 0.5 MG TABS 146074 CLONAZEPAM Inactive CIPRO 500 MG TAB 1 tablet by mouth twice daily CIPRO 500 MG TAB 759187 CIPROFLOXACIN HCL Inactive AZITHROMYCIN 500 MG TABS 1 PO q day x 6 days AZITHROMYCIN 500 MG TABS 2883449 AZITHROMYCIN Inactive CYCLOBENZAPRINE HCL 10 MG TABS 1 PO q 8 hrs PRN muscle spasm 2012 CYCLOBENZAPRINE HCL 10 MG TABS 443394 CYCLOBENZAPRINE HCL Inactive METFORMIN HCL 500 MG [...] bid prn anxiety. XANAX 0.25 MG TABS 992979 ALPRAZOLAM Inactive LAMISIL AT 1 % CREA apply bid to rash LAMISIL AT 1 % CREA 837668 TERBINAFINE HCL Inactive TOPAMAX 25 MG TABS 1 tab po qhs x 1 week, then take 2 tabs po qhs TOPAMAX 25 MG TABS 313553 TOPIRAMATE Inactive TERBINAFINE HCL 1 % CREA Apply bid to rash TERBINAFINE HCL 1 % CREA 739571 TERBINAFINE HCL Inactive ZITHROMAX 250 MG TAB 2 po today, then 1 po q days 2-5 ZITHROMAX 250 MG TAB 5510506 AZITHROMYCIN Inactive ZITHROMAX 250 MG TAB 2 po today, then 1 po q days 2-5 ZITHROMAX 250 MG TAB 6977346 AZITHROMYCIN Inactive PREDNISONE 20 MG TAB 2 tabs daily for 3 days, 1 tab daily for 3 days, 1/2 tab daily for 2 days PREDNISONE 20 MG TAB 987226 PREDNISONE Inactive PREDNISONE 20 MG TAB 3 tabs daily for 3 days, 2 tab daily for 3 days, 1 tab daily for 2 days, then 1/2 tab dialy for 2 days PREDNISONE 20 MG TAB 592055 PREDNISONE Inactive OMEPRAZOLE 20 MG CPDR 1 tablet by mouth daily OMEPRAZOLE 20 MG CPDR 496039 OMEPRAZOLE Inactive PREDNISONE 20 MG TABS 3 qd x 2d, 2 qd x 2d, 1 qd x 2d, 1/2 qd x 2d PREDNISONE 20 MG TABS 551576 PREDNISONE Inactive TERBINAFINE HCL 250 MG TABS 1 qDay TERBINAFINE HCL 250 MG TABS 874539 TERBINAFINE HCL Inactive DOXYCYCLINE HYCLATE 100 MG CAP 1 cap by mouth twice daily DOXYCYCLINE HYCLATE 100 MG CAP 932874 DOXYCYCLINE HYCLATE Inactive Advance Directives Directive Description Start Date NO HEROIC MEASURES Immunizations Vaccine Administration Date Value Standard Description Boostrix (Tetanus toxoid, reduced diphtheria toxoid and acellular pertussis vaccine, adsorbed), booster Boostrix [[id number]] tetanus toxoid, reduced diphtheria toxoid, and acellular [...] 5.3 % 4.3-6.0 sodium, serum 139 mmol/L 708-591 4897/02/24 potassium, serum 4.4 mmol/L 3.5-5.2 chloride, serum [...] 1.44 m[iU]/mL 0.36-3.74 cholesterol, serum 144 mg/dL 235-716 1257/11/19 triglyceride, serum, fasting 172 mg/dL 30-200 HDL cholesterol, serum 30 mg/dL 32-96 LDL cholesterol, serum 80 mg/dL 0-130 sodium, serum 137 mmol/L 104-180 9840/11/19 potassium, serum 4.1 mmol/L 3.5-5.2 chloride, serum [...] Panel - Chemistry cholesterol, serum 118 mg/dL 003-371 4563/02/24 triglyceride, serum, fasting 141 mg/dL 30-200 HDL [...] mg/dL Encounters Code Encounter Date Provider Facility CPT-64069 Level 3 Est. Patient 15:50:27 AUGER PRESS OPERATOR Najma Vaughn APRN [facility] CPT-05476 Level 4 Est. Patient 21:20:00 AUGER PRESS OPERATOR Ian Valdez MD [facility] CPT-22187 Level 3 Est. Patient 15:32:41 AUGER PRESS OPERATOR Juan Smith MD [facility]-75844 Level 3 Est. Patient 14:45:01 CDT Eva Ferrara MD PhD [facility] CPT-08137 Level 3 Est. Patient 14:54:10 CDT Ian Valdez MD [facility] CPT-33877 Level 4 Est. Patient 20:36:52 CDT Ian Valdez MD [facility]-89880 Level 4 Est. Patient 11:14:30 AUGER PRESS OPERATOR Ian Valdez MD [facility] CPT-97266 Level 3 Est. Patient 19:08:34 AUGER PRESS OPERATOR Ian Valdez MD [facility] CPT-72330 Level 3 Est. Patient 13:17:39 AUGER PRESS OPERATOR Ian Valdez MD [facility] CPT-10284 Level 4 Est. Patient 18:56:10 CDT Ian Valdez MD [facility]-74389 Level 4 Est. Patient 16:55:56 CDT Ian Valdez MD [facility] CPT-52570 Level 3 Est. Patient 11:27:07 CDT Ian Valdez MD [facility] CPT-00040 Level 3 Est. Patient 15:17:44 CDT Law Rosas [facility] CPT-56814 Level 4 Est. Patient 15:13:53 CDT Wellington Muniz [facility] CPT-85547 Level 3 Est. Patient 14:25:12 AUGER PRESS OPERATOR Ian Valdez MD [facility] CPT-52705 Level 3 Est. Patient 10:24:46 CDT Ian Valdez MD [facility] CPT-55246 Level 3 Est. Patient 15:34:19 CDT Ian Valdez MD [facility] CPT-77432 Level 3 Est. Patient 14:22:41 CDT Ian Valdez MD [facility] CPT-20218 Level 3 Est. Patient 15:07:22 AUGER PRESS OPERATOR Ian Valdez MD [facility] CPT-86434 Level 3 New Patient 09:06:43 AUGER PRESS OPERATOR Ian Valdez MD [facility] CPT-79118 Level 3 Est. Patient 15:09:00 AUGER PRESS OPERATOR Ian Valdez MD [facility] Procedures Code Procedure Name Date Entry Date Standard Description CPT-OV Office Visit 15:49:26 AUGER PRESS OPERATOR CPT-J1885 Toradol 60 mg (Ketorolac) 15:37:32 CDT CPT-39856 Abx/Therapy Injection 15:37:32 CDT CPT-J1885 Toradol 60 mg (Ketorolac) 14:45:01 CDT CPT-OV Office Visit 15:19:52 CDT CPT-OV Office Visit 10:41:01 CDT CPT-86659 Core biop breast wo imaging 16:50:06 CDT CPT-OV Office Visit 16:50:05 CDT CPT-47728 UHCG (floor use only) 13:39:36 CDT CPT-43508 Nexplanon Placement 10:11:48 CDT CPT-J7307 Nexplanon (Implant) 10:11:48 CDT CPT-OV Office Visit 09:54:18 CDT CPT-07097 EKG Trac and Interp 16:50:19 CDT CPT-95722 Venipuncture Draw Fee 15:06:08 CDT CPT-J2930 Solu Medrol 125 mg (Methyl Prednisolone Sodium Succinate) 12:44:46 CDT CPT-J1055 Depo Provera 150 mg (Medroxyprogesterone) 12:44:46 CDT CPT-49220 Abx/Therapy Injection 12:44:46 CDT CPT-J1055 Depo Provera 150 mg (Medroxyprogesterone) 14:28:41 CDT CPT-J2930 Solu Medrol 125 mg (Methyl Prednisolone Sodium Succinate) 14:22:41 CDT CPT-61718 Administration single or combination vaccine inc oral 10 :08:06 CDT CPT-67928 Tdap 10:08:06 CDT CPT-G0402 Wlcm To Medicare Ex 22:17:30 CDT CPT-48145 Venipuncture Draw Fee 10:33:07 AUGER PRESS OPERATOR CPT-26322 Venipuncture Draw Fee 10:17:37 AUGER PRESS OPERATOR CPT-G0403 EKG Wlc To Medicare 22:17:30 CDT
--- OUTSIDE RECORDS SUMMARY | 2018-07-17 22:26 | XMS REPORT | Clinical Summary ---
Author Author Admin, ARIAN Organization [facility] Address Unknown Phone Allergies, Adverse Reactions, Alerts [...] Lateral epicondylitis IRREGULAR MENSES 626.4 Resolved Ian Valedz MD Irregular menstrual cycle ABDOMINAL CRAMPS 789.00 [...] CREA apply bid to rash TERBINAFINE HCL 40953482992 Active Ian Valdez MD Active TERBINAFINE HCL 250 MG TABS 1 qDay TERBINAFINE HCL 08195463805 No Longer Active Ian Valdez MD Active TOPAMAX 25 MG TABS 1 tab po qhs x 1 week, then take 2 tabs po qhs TOPIRAMATE 50940223326 Active Ian Valdez MD Active XANAX 0.25 MG TABS take 1 tab po bid prn anxiety. ALPRAZOLAM 09393390076 No Longer Active Ian Valdez MD Active FISH OIL 1000 MG CAPS 2 caps PO once daily at bedtime OMEGA-3 FATTY ACIDS 63751125372 No Longer Active Ian Valdez MD Active KLOR-CON M20 20 MEQ CR-TABS take 1 tab po qday with lasix POTASSIUM CHLORIDE GALILEO CR 10670420844 Active Ian Valdez MD Active LASIX 20 MG TAB 1 tablet by mouth daily prn swelling FUROSEMIDE 69751455287 Active Ian Valdez MD Active FLONASE 50 MCG/ACT SUSP 2 puffs in each nostril once daily at bedtime FLUTICASONE PROPIONATE 03495307781 Active Ian Valdez MD Active CVS MELATONIN 3 MG TABS 2 tabs PO at bedtime MELATONIN 33796406202 Active Ian Valdez MD Active PULMICORT FLEXHALER 180 MCG/ACT AEPB 2 INH BID BUDESONIDE 83918704443 No Longer Active Ian Valdez MD Active METFORMIN HCL 500 MG TB24 1 TAB PO Q HS METFORMIN HCL 69481232808 No Longer Active Ian Valdez MD Active CYCLOBENZAPRINE HCL 10 MG TABS 1 PO q 8 hrs PRN muscle spasm 2012 CYCLOBENZAPRINE HCL 18492900673 No Longer Active Ian Valdez MD Active AZITHROMYCIN 500 MG TABS 1 PO q day x 6 days AZITHROMYCIN 97235235160 No Longer Active Ian Valdez MD Active CIPRO 500 MG TAB 1 tablet by mouth twice daily CIPROFLOXACIN HCL 73495992999 No Longer Active Ian Valdez MD Active PREDNISONE 20 MG TABS 3 qd x 2d, 2 qd x 2d, 1 qd x 2d, 1/2 qd x 2d PREDNISONE 45014134727 No Longer Active Law FIGUEROA Active CELEXA 40 MG TABS 2 PO DAILY CITALOPRAM HYDROBROMIDE 18981860378 Active Ian Valdez MD Active OMEPRAZOLE 20 MG CPDR 1 tablet by mouth daily OMEPRAZOLE 58331860047 No Longer Active [place] FIGUEROA Active KLONOPIN 0.5 MG TABS 1 TABLET PO PRN CLONAZEPAM 39038512099 No Longer Active [place] FIGUEROA Active MOBIC 7.5 MG TABS 1 tablet by mouthonce a day MELOXICAM 16329177405 No Longer Active [place] FIGUEROA Active ZITHROMAX 1 GM PACK DIRECTED AZITHROMYCIN 38030951670 No Longer Active Ian Valdez MD Active ALBUTEROL SULFATE 0.083 % NEBU SOLN one vial per nebulizer every 4-6 hours as needed ALBUTEROL SULFATE 10361304442 Active Ian Valdez MD Active CHANTIX STARTING MONTH REBEKAH 0.5 MG X 11 & 1 MG X 42 TABS 0.5mg daily for 3 days , then 0.5mg BID for 4 days, then 1mg BID VARENICLINE TARTRATE 58039196165 No Longer Active Ian Valdez MD Active ZITHROMAX 1 GM PACK DIRECTED AZITHROMYCIN 57955766627 No Longer Active Ian Valdez MD Active AURALGAN 1.4-5.5 % SOLN BENZOCAINE-ANTIPYRINE 12983274463 No Longer Active Ian Valdez MD Active PREDNISONE 20 MG TAB 3 tabs daily for 3 days, 2 tab daily for 3 days, 1 tab daily for 2 days, then 1/2 tab dialy for 2 days PREDNISONE 99263915382 No Longer Active Ian Valdez MD Active SIMVASTATIN 40 MG TABS 1 TABLET PO Q HS SIMVASTATIN 15943217128 Active Ian Valdez MD Active SIMVASTATIN 80 MG TABS Take one by mouth daily SIMVASTATIN 11555018417 No Longer Active Ian Valdez MD Active PREDNISONE 20 MG TAB 2 tabs daily for 3 days, 1 tab daily for 3 days, 1/2 tab daily for 2 days PREDNISONE 15774655149 No Longer Active Ian Valdez MD Active ZITHROMAX 250 MG TAB 2 po today, then 1 po q days 2-5 AZITHROMYCIN 32930395343 No Longer Active Ian Valdez MD Active TRAZODONE HCL 100 MG TABS 2 TABS PO Q HS TRAZODONE HCL 83259731993 Active Ian Valdez MD Active ZITHROMAX 250 MG TAB 2 po today, then 1 po q days 2-5 AZITHROMYCIN 87564704393 No Longer Active Ian Valdez MD Active SIMVASTATIN 80 MG TABS Take one by mouth daily SIMVASTATIN 80 MG TABS 272611 SIMVASTATIN Inactive AURALGAN 1.4-5.5 % SOLN AURALGAN 1.4-5.5 % SOLN 5685204 BENZOCAINE-ANTIPYRINE Inactive ZITHROMAX 1 GM PACK DIRECTED ZITHROMAX 1 GM PACK 972258 AZITHROMYCIN Inactive CHANTIX STARTING MONTH REBEKAH 0.5 MG X 11 & 1 MG X 42 TABS 0.5mg daily for 3 days , then 0.5mg BID for 4 days, then 1mg BID CHANTIX STARTING MONTH REBEKAH 0.5 MG X 11 & 1 MG X 42 TABS VARENICLINE TARTRATE Inactive ZITHROMAX 1 GM PACK DIRECTED ZITHROMAX 1 GM PACK 061205 AZITHROMYCIN Inactive MOBIC 7.5 MG TABS 1 tablet by mouthonce a day MOBIC 7.5 MG TABS 985106 MELOXICAM Inactive KLONOPIN 0.5 MG TABS 1 TABLET PO PRN KLONOPIN 0.5 MG TABS 785457 CLONAZEPAM Inactive CIPRO 500 MG TAB 1 tablet by mouth twice daily CIPRO 500 MG TAB 391869 CIPROFLOXACIN HCL Inactive AZITHROMYCIN 500 MG TABS 1 PO q day x 6 days AZITHROMYCIN 500 MG TABS 1200248 AZITHROMYCIN Inactive CYCLOBENZAPRINE HCL 10 MG TABS 1 PO q 8 hrs PRN muscle spasm 2012 CYCLOBENZAPRINE HCL 10 MG TABS 078126 CYCLOBENZAPRINE HCL Inactive METFORMIN HCL 500 MG [...] bid prn anxiety. XANAX 0.25 MG TABS 602137 ALPRAZOLAM Inactive ZITHROMAX 250 MG TAB 2 po today, then 1 po q days 2-5 ZITHROMAX 250 MG TAB 9929476 AZITHROMYCIN Inactive ZITHROMAX 250 MG TAB 2 po today, then 1 po q days 2-5 ZITHROMAX 250 MG TAB 6129609 AZITHROMYCIN Inactive PREDNISONE 20 MG TAB 2 tabs daily for 3 days, 1 tab daily for 3 days, 1/2 tab daily for 2 days PREDNISONE 20 MG TAB 736011 PREDNISONE Inactive PREDNISONE 20 MG TAB 3 tabs daily for 3 days, 2 tab daily for 3 days, 1 tab daily for 2 days, then 1/2 tab dialy for 2 days PREDNISONE 20 MG TAB 084955 PREDNISONE Inactive OMEPRAZOLE 20 MG CPDR 1 tablet by mouth daily OMEPRAZOLE 20 MG CPDR 480847 OMEPRAZOLE Inactive PREDNISONE 20 MG TABS 3 qd x 2d, 2 qd x 2d, 1 qd x 2d, 1/2 qd x 2d PREDNISONE 20 MG TABS 343219 PREDNISONE Inactive TERBINAFINE HCL 250 MG TABS 1 qDay TERBINAFINE HCL 250 MG TABS 839393 TERBINAFINE HCL Inactive Advance Directives Directive Description Start Date NO HEROIC MEASURES Immunizations Vaccine Administration Date Value Standard Description Combined Rsmaocokoj-Errlfvz-bxuqkgnav Pertussis (dTpa) Vaccine - Booster 07/05 Boostrix [[id number]] tetanus toxoid, reduced diphtheria toxoid, and acellular [...] Panel - Chemistry sodium, serum 137 mmol/L 839-060 1749/07/25 potassium, serum 3.7 mmol/L 3.5-5.2 chloride, serum 102 mmol/L 98-107 carbon dioxide, venous blood 27.3 mmol/L 21.0-32.0 blood glucose 85 mg/dL 65-110 calcium, serum 8.5 mg/dL 8.5-10.1 urea nitrogen, blood 7 mg/dL 7-18 creatinine, serum 0.80 mg/dL 0.60-1.30 Lab Report: CBC, HGBA1C, Comp. Metabolic Panel - Chemistry hemoglobin A1C, blood, as % of total hemoglobin 5.3 % 4.3-6.0 sodium, serum 139 mmol/L 727-931 5967/02/24 potassium, serum 4.4 mmol/L 3.5-5.2 chloride, serum [...] Panel - Chemistry cholesterol, serum 118 mg/dL 081-917 7278/02/24 triglyceride, serum, fasting 141 mg/dL 30-200 HDL cholesterol, serum 20 mg/dL 32-96 LDL cholesterol, serum 70 mg/dL 0-130 Lab Report: Lipid Panel, Comp. Metabolic Panel, MICROALBUMIN, HGBA1C - Chemistry cholesterol, serum 172 mg/dL 127-425 7489/08/16 triglyceride, serum, fasting 267 mg/dL 30-200 HDL cholesterol, serum 22 mg/dL 32-96 LDL cholesterol, serum 97 mg/dL 0-130 sodium, serum 141 mmol/L 236-821 0787/08/16 potassium, serum 4.2 mmol/L 3.5-5.2 chloride, serum [...] Negative Encounters Code Encounter Date Provider Facility CPT-96648 Level 3 Est. Patient 14:54:10 CDT Ian Valdez MD [facility] CPT-16145 Level 4 Est. Patient 20:36:52 CDT Ian Valdez MD [facility] CPT-32461 Level 4 Est. Patient 11:14:30 DOORMAKER Ian Valdez MD [facility] CPT-84422 Level 3 Est. Patient 19:08:34 DOORMAKER Ian Valdez MD [facility] CPT-21199 Level 3 Est. Patient 13:17:39 DOORMAKER Ian Valdez MD [facility] CPT-62223 Level 4 Est. Patient 18:56:10 CDT Ian Valdez MD [facility] CPT-61526 Level 4 Est. Patient 16:55:56 CDT Ian Valdez MD [facility] CPT-24900 Level 3 Est. Patient 11:27:07 CDT Ian Valdez MD [facility] CPT-16837 Level 3 Est. Patient 15:17:44 CDT Law Rosas [facility] CPT-91395 Level 4 Est. Patient 15:13:53 CDT Wellington Muniz PA [facility] CPT-50102 Level 3 Est. Patient 14:25:12 DOORMAKER Ian Valdez MD [facility] CPT-70380 Level 3 Est. Patient 10:24:46 CDT Ian Valdez MD [facility] CPT-72458 Level 3 Est. Patient 15:34:19 CDT Ian Valdez MD [facility] CPT-80760 Level 3 Est. Patient 14:22:41 CDT Ian Valdez MD [facility] CPT-31160 Level 3 Est. Patient 15:07:22 DOORMAKER Ian Valdez MD [facility] CPT-99512 Level 3 New Patient 09:06:43 DOORMAKER Ian Valdez MD [facility] CPT-52330 Level 3 Est. Patient 15:09:00 DOORMAKER Ian Valdez MD [facility] Procedures Code Procedure Name Date Entry Date Standard Description CPT-61819 UHCG (floor use only) 13:39:36 CDT CPT-13388 Nexplanon Placement 10:11:48 CDT CPT-J7307 Nexplanon (Implant) 10:11:48 CDT CPT-OV Office Visit 09:54:18 CDT CPT-21067 EKG Trac and Interp 16:50:19 CDT CPT-63023 Venipuncture Draw Fee 15:06:08 CDT CPT-J2930 Solu Medrol 125 mg (Methyl Prednisolone Sodium Succinate) 12:44:46 CDT CPT-J1055 Depo Provera 150 mg (Medroxyprogesterone) 12:44:46 CDT CPT-11462 Abx/Therapy Injection 12:44:46 CDT CPT-J1055 Depo Provera 150 mg (Medroxyprogesterone) 14:28:41 CDT CPT-J2930 Solu Medrol 125 mg (Methyl Prednisolone Sodium Succinate) 14:22:41 CDT CPT-35024 Administration single or combination vaccine inc oral 10 :08:06 CDT CPT-47000 Tdap 10:08:06 CDT CPT-G0402 Wlcm To Medicare Ex 22:17:30 CDT CPT-54100 Venipuncture Draw Fee 10:33:07 DOORMAKER CPT-23584 Venipuncture Draw Fee 10:17:37 DOORMAKER CPT-G0403 EKG [facility] To Medicare 22:17:30 CDT
--- OUTSIDE RECORDS SUMMARY | 2018-07-17 22:28 | XMS REPORT | Continuity of Care Document ---
Demographics x Preferred Language Unknown Marital Status Unknown Uatsdin Affiliation Unknown Race Unknown Ethnic Group Unknown Author Organization Unknown Address Unknown Allergies Active Description Code Type Severity Reaction Onset Reported/Identified Relationship to Patient Clinical Status Yes Haldol 5282 Drug Allergy N/A N/A Yes latex LATEX Environmental Allergy N/A N/A Yes Penicillins 476 Drug Allergy N/ A N/A Yes HALDOL Moderate to severe Respiratory distress (Moderate to severe) Yes LATEX 5297781 Moderate Hives (Moderate) Yes PENICILLINS Moderate Hives (Moderate) Yes latex OA N/A N/A 08/22/2009 Yes Penicillins Drug Allergy N/A N/A 08/22/2009 Yes Fanapt Drug Allergy N/A N/A 12/03/2010 Yes Haldol Drug Allergy N/A N/A 12/03/2010 Yes HALOPERIDOL 78877 DRUG INGREDI N/A Swelling 10/31/2013 Yes LATEX 32383 DRUG INGREDI Low Rash 10/31/2013 Yes PENICILLINS 26 Drug Class N/A Swelling 10/31/2013 Yes Haldol Drug Allergy N/A N/A 04/25/2015 Yes latex Drug Allergy N/A N/A 04/25/2015 Yes Penicillins Drug Allergy N/A N/A 04/25/2015 Yes haloperidol [id number] Drug Allergy Unknown tounge/throat s 04/30/2015 Yes latex [id number] Drug Allergy Unknown Hives 04/30/2015 Yes Penicillins [id number] Drug Allergy Unknown N/A 04/30/2015 Medications Medication Packaging Start Date Stop Date Route Dosage Sig tramadol hydrochloride 50 MG Oral Tablet 10/08/2016 1 Ondansetron 8 MG Disintegrating Oral Tablet 10/27/2016 1 Q8H Fluconazole 150 MG Oral Tablet [Diflucan] 10/27/2016 1 tramadol hydrochloride 50 MG Oral Tablet 01/10/2017 1 tramadol hydrochloride 50 MG Oral Tablet 02/10/2017 1 Cyclobenzaprine hydrochloride 10 MG Oral Tablet 02/10/2017 1 pregabalin 150 MG Oral Capsule [Lyrica] 03/18/2017 1 SODIUM CHLORIDE 0.9 % IV BOLUS Intravenous 1000 BOLUS SODIUM CHLORIDE 0.9 % IV BOLUS Intravenous 1000 BOLUS SULFAMETHOXAZOLE-TRIMETHOPRIM 800-160 MG PO TABS 12/03/2017 Oral 1 ONCE CEPHALEXIN 250 MG PO CAPS 2017 Oral 500 ONCE SODIUM CHLORIDE 0.9 % IV BOLUS Intravenous 1000 BOLUS ONDANSETRON 4 MG PO TBDP 2017 Oral 8 ONCE CYCLOBENZAPRINE HCL 10 MG PO TABS 01/10/2018 Oral 10 ONCE Problems Date Dx Coded Attending Type Code Diagnosis Diagnosed By 08/22/2009 PEEWEE CHRISTOPHER DO 780.79 OTHER MALAISE AND FATIGUE 10/08/2009 PEEWEE CHRISTOPHER DO 110.4 TINEA PEDIS 11/17/2009 PEEWEE CHRISTOPHER DO 216.9 MOLE/NEVUS - SITE UNSPECIFIED 11/17/2009 PEEWEE CHRISTOPHER DO 701.9 SKIN TAG 11/17/2009 PEEWEE CHRISTOPHER DO 842.00 SPRAIN/STRAIN WRIST 12/05/2009 PEEWEE CHRISTOPHER DO 998.59 OTHER POSTOPERATIVE INFECTION, NEC 12/11/2009 PEEWEE CHRISTOPHER DO 723.1 CERVICALGIA 02/12/2010 PEEWEE CHRISTOPHER DO V25.40 visit for: contraceptive surveillance 02/12/2010 PEEWEE CHRISTOPHER DO V74.5 visit for: screening exam venereal disease 02/27/2010 PEEWEE CHRISTOPHER DO 296.80 MO BIPOLAR NOS 02/27/2010 PEEWEE CHRISTOPHER DO 301.83 PD BORDERLINE 03/10/2010 PEEWEE CHRISTOPHER DO 278.01 OBESITY MORBID BMI >40 03/10/2010 PEEWEE CHRISTOPHER DO 305.1 TOBACCO ABUSE 03/10/2010 PEEWEE CHRISTOPHER DO 493.90 ASTHMA UNSPECIFIED 04/09/2010 PEEWEE CHRISTOPHER DO 272.4 HYPERLIPIDEMIA 04/09/2010 PEEWEE CHRISTOPHER DO V58.69 MEDICATION HIGH RISK 05/08/2010 PEEWEE CHRISTOPHER DO 691.8 DERMATITIS ATOPIC ECZEMA 05/08/2010 PEEWEE CHRISTOPHER DO 698.9 UNSPECIFIED PRURITIC DISORDER 05/08/2010 PEEWEE CHRISTOPHER DO V25.49 SURVEILLANCE OF OTHER CONTRACEPTIVE METHOD 05/15/2010 PEEWEE CHRISTOPHER DO 270.7 HYPERGLYCEMIA 07/08/2010 PEEWEE CHRISTOPHER DO 110.1 DERMATOPHYTOSIS ONYCHOMYCOSIS TOENAILS LEFT 07/08/2010 CHRISTOPHER DO, PEEWEE K 611.6 GALACTORRHEA NOT ASSOCIATED WITH CHILDBIRTH 08/07/2010 CHRISTOPHER DO, PEEWEE K 703.8 ONYCHOCRYPTOSIS 08/12/2010 CHRISTOPHER DO, PEEWEE K 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 09/02/2010 CHRISTOPHER DO, PEEWEE K 298.9 P PSYCHOSIS NOS 09/10/2010 CHRISTOPHER DO, PEEWEE K 388.70 OTALGIA 09/10/2010 CHRISTOPHER DO, PEEWEE K 473.9 SINUSITIS (CHRONIC) 10/16/2010 CHRISTOPHER DO, PEEWEE K 295.70 P SCHIZO AFFECTIVE 10/24/2010 CHRISTOPHER DO, PEEWEE K 704.8 FOLLICULITIS 12/14/2010 CHRISTOPHER DO, PEEWEE K 133.0 SCABIES 12/30/2010 CHRISTOPHER DO, PEEWEE K 382.9 UNSPECIFIED OTITIS MEDIA 12/20/2013 JOHN ROSADO 493.90 ASTHMA, UNSPECIFIED 12/20/2013 JOHN ROSADO 786.2 COUGH 01/25/2014 SAUL EPSTEIN 843.9 SPRAIN HIP THIGH NOS 01/25/2014 SAUL EPSTEIN 844.9 SPRAIN OF KNEE LEG NOS 01/25/2014 SAUL EPSTEIN 959.8 INJURY GUNITE MIXER SITE/SITE NEC 01/25/2014 SAUL EPSTEIN E927.0 OVEREXERTION, SUDDEN 02/01/2014 FARHAD SETHI 729.1 MYALGIA AND MYOSITIS NOS 02/01/2014 FARHAD SETHI V57.1 PHYSICAL THERAPY NEC 02/21/2014 FARHAD SETHI 729.1 MYALGIA AND MYOSITIS NOS 02/21/2014 FARHAD SETHI V57.1 PHYSICAL THERAPY NEC 03/12/2014 FARHAD SETHI 729.1 MYALGIA AND MYOSITIS NOS 03/12/2014 FARHAD SETHI V57.1 PHYSICAL THERAPY NEC 04/07/2015 JARETT PINO MD Z30.42 ENCOUNTER FOR SURVEILLANCE OF INJECTABLE CONTRACEPTIVE 04/07/2015 BENOIT MARMOLEJO APRN Z30.42 ENCOUNTER FOR SURVEILLANCE OF INJECTABLE CONTRACEPTIVE 04/07/2015 ONUR SYSTEMS SOFTWARE MANAGER, MALENA Z30.42 ENCOUNTER FOR SURVEILLANCE OF INJECTABLE CONTRACEPTIVE 04/07/2015 BENOIT MARMOLEJO APRN Z30.42 ENCOUNTER FOR SURVEILLANCE OF INJECTABLE CONTRACEPTIVE 04/07/2015 ONUR SYSTEMS SOFTWARE MANAGER, MALENA Z30.42 ENCOUNTER FOR SURVEILLANCE OF INJECTABLE CONTRACEPTIVE 04/07/2015 ONUR SYSTEMS SOFTWARE MANAGER, MALENA Z30.42 ENCOUNTER FOR SURVEILLANCE OF INJECTABLE CONTRACEPTIVE 04/07/2015 ONUR SYSTEMS SOFTWARE MANAGER, MALENA Z30.42 ENCOUNTER FOR SURVEILLANCE OF INJECTABLE CONTRACEPTIVE 04/07/2015 ONUR SYSTEMS SOFTWARE MANAGER, MALENA Z30.42 ENCOUNTER FOR SURVEILLANCE OF INJECTABLE CONTRACEPTIVE 04/07/2015 ONUR SYSTEMS SOFTWARE MANAGER, MALENA Z30.42 ENCOUNTER FOR SURVEILLANCE OF INJECTABLE CONTRACEPTIVE 04/07/2015 ONUR SYSTEMS SOFTWARE MANAGER, MALENA Z30.42 ENCOUNTER FOR SURVEILLANCE OF INJECTABLE CONTRACEPTIVE 04/25/2015 BENOIT MARMOLEJO APRN R30.0 DYSURIA 04/25/2015 FRANCIE GALLARDO LACEY Z71.89 OTHER SPECIFIED COUNSELING 04/25/2015 ONUR SYSTEMS SOFTWARE MANAGER, MALENA R30.0 DYSURIA 04/25/2015 ONUR SYSTEMS SOFTWARE MANAGER, MALENA Z71.89 OTHER SPECIFIED COUNSELING 04/25/2015 SHASHIMAN KALYN GALLARDOEY R30.0 DYSURIA 04/25/2015 SCHUCKMAN SAMI BENOIT Z71.89 OTHER SPECIFIED COUNSELING 04/25/2015 NOUR SYSTEMS SOFTWARE MANAGER, MALENA R30.0 DYSURIA 04/25/2015 ONUR SYSTEMS SOFTWARE MANAGER, MALENA Z71.89 OTHER SPECIFIED COUNSELING 04/25/2015 ONUR SYSTEMS SOFTWARE MANAGER, MALENA R30.0 DYSURIA 04/25/2015 ONUR SYSTEMS SOFTWARE MANAGER, MALENA Z71.89 OTHER SPECIFIED COUNSELING 04/25/2015 ONUR SYSTEMS SOFTWARE MANAGER, MALENA R30.0 DYSURIA 04/25/2015 ONUR SYSTEMS SOFTWARE MANAGER, MALENA Z71.89 OTHER SPECIFIED COUNSELING 04/25/2015 ONUR SYSTEMS SOFTWARE MANAGER, MALENA R30.0 DYSURIA 04/25/2015 ONUR SYSTEMS SOFTWARE MANAGER, MALENA Z71.89 OTHER SPECIFIED COUNSELING 04/25/2015 ONUR SYSTEMS SOFTWARE MANAGER, MALENA R30.0 DYSURIA 04/25/2015 ONUR SYSTEMS SOFTWARE MANAGER, MALENA Z71.89 OTHER SPECIFIED COUNSELING 04/25/2015 ONUR SYSTEMS SOFTWARE MANAGER, MALENA R30.0 DYSURIA 04/25/2015 ONUR SYSTEMS SOFTWARE MANAGER, MALENA Z71.89 OTHER SPECIFIED COUNSELING 04/30/2015 PAT ROSARIO A60.04 05/14/2015 SCHUCKMAN SYSTEMS SOFTWARE MANAGER, BENOIT B00.9 HERPESVIRAL INFECTION, UNSPECIFIED 05/14/2015 SCHUCKMAN SYSTEMS SOFTWARE MANAGER, BENOIT M25.50 PAIN IN UNSPECIFIED JOINT 05/14/2015 SCHUCKMAN SYSTEMS SOFTWARE MANAGER, BENOIT M54.5 LOW BACK PAIN 05/14/2015 SCHUCKMAN SYSTEMS SOFTWARE MANAGER, BENOIT Z11.3 ENCOUNTER FOR SCREENING FOR INFECTIONS WITH A PREDOMINANTLY SEXUAL MODE OF TRANSMISSION 05/14/2015 ONUR SYSTEMS SOFTWARE MANAGER, MALENA B00.9 HERPESVIRAL INFECTION, UNSPECIFIED 05/14/2015 ONUR SYSTEMS SOFTWARE MANAGER, MALENA M25.50 PAIN IN UNSPECIFIED JOINT 05/14/2015 ONUR SYSTEMS SOFTWARE MANAGER, MALENA M54.5 LOW BACK PAIN 05/14/2015 ONUR SYSTEMS SOFTWARE MANAGER, MALENA Z11.3 ENCOUNTER FOR SCREENING FOR INFECTIONS WITH A PREDOMINANTLY SEXUAL MODE OF TRANSMISSION 05/14/2015 ONUR SYSTEMS SOFTWARE MANAGER, MALENA B00.9 HERPESVIRAL INFECTION, UNSPECIFIED 05/14/2015 ONUR SYSTEMS SOFTWARE MANAGER, MALNEA M25.50 PAIN IN UNSPECIFIED JOINT 05/14/2015 ONUR SYSTEMS SOFTWARE MANAGER, MALENA M54.5 LOW BACK PAIN 05/14/2015 ONUR SYSTEMS SOFTWARE MANAGER, MALENA Z11.3 ENCOUNTER FOR SCREENING FOR INFECTIONS WITH A PREDOMINANTLY SEXUAL MODE OF TRANSMISSION 05/14/2015 ONUR SYSTEMS SOFTWARE MANAGER, MALENA B00.9 HERPESVIRAL INFECTION, UNSPECIFIED 05/14/2015 ONUR SYSTEMS SOFTWARE MANAGER, MALENA M25.50 PAIN IN UNSPECIFIED JOINT 05/14/2015 ONUR SYSTEMS SOFTWARE MANAGER, MALENA M54.5 LOW BACK PAIN 05/14/2015 ONUR SYSTEMS SOFTWARE MANAGER, MALENA Z11.3 ENCOUNTER FOR SCREENING FOR INFECTIONS WITH A PREDOMINANTLY SEXUAL MODE OF TRANSMISSION 05/14/2015 ONUR SYSTEMS SOFTWARE MANAGER, MALENA B00.9 HERPESVIRAL INFECTION, UNSPECIFIED 05/14/2015 ONUR SYSTEMS SOFTWARE MANAGER, MALENA M25.50 PAIN IN UNSPECIFIED JOINT 05/14/2015 ONUR SYSTEMS SOFTWARE MANAGER, MALENA M54.5 LOW BACK PAIN 05/14/2015 ONUR SYSTEMS SOFTWARE MANAGER, MALENA Z11.3 ENCOUNTER FOR SCREENING FOR INFECTIONS WITH A PREDOMINANTLY SEXUAL MODE OF TRANSMISSION 05/14/2015 ONUR SYSTEMS SOFTWARE MANAGER, MALENA B00.9 HERPESVIRAL INFECTION, UNSPECIFIED 05/14/2015 ONUR SYSTEMS SOFTWARE MANAGER, MALENA M25.50 PAIN IN UNSPECIFIED JOINT 05/14/2015 ONUR SYSTEMS SOFTWARE MANAGER, MALENA M54.5 LOW BACK PAIN 05/14/2015 ONUR SYSTEMS SOFTWARE MANAGER, MALENA Z11.3 ENCOUNTER FOR SCREENING FOR INFECTIONS WITH A PREDOMINANTLY SEXUAL MODE OF TRANSMISSION 05/14/2015 ONUR SYSTEMS SOFTWARE MANAGER, MALENA B00.9 HERPESVIRAL INFECTION, UNSPECIFIED 05/14/2015 ONUR SYSTEMS SOFTWARE MANAGER, MALENA M25.50 PAIN IN UNSPECIFIED JOINT 05/14/2015 ONUR SYSTEMS SOFTWARE MANAGER, MALENA M54.5 LOW BACK PAIN 05/14/2015 ONUR SYSTEMS SOFTWARE MANAGER, MALENA Z11.3 ENCOUNTER FOR SCREENING FOR INFECTIONS WITH A PREDOMINANTLY SEXUAL MODE OF TRANSMISSION 06/04/2015 ONUR SYSTEMS SOFTWARE MANAGER, MALENA E28.2 POLYCYSTIC OVARIAN SYNDROME 06/04/2015 ONUR SYSTEMS SOFTWARE MANAGER, MALENA F25.0 SCHIZOAFFECTIVE DISORDER, BIPOLAR TYPE 06/04/2015 ONUR SYSTEMS SOFTWARE MANAGER, MALENA E28.2 POLYCYSTIC OVARIAN SYNDROME 06/04/2015 ONUR SYSTEMS SOFTWARE MANAGER, MALENA F25.0 SCHIZOAFFECTIVE DISORDER, BIPOLAR TYPE 06/04/2015 ONUR SYSTEMS SOFTWARE MANAGER, MALENA E28.2 POLYCYSTIC OVARIAN SYNDROME 06/04/2015 ONUR SYSTEMS SOFTWARE MANAGER, MALENA F25.0 SCHIZOAFFECTIVE DISORDER, BIPOLAR TYPE 06/04/2015 ONUR SYSTEMS SOFTWARE MANAGER, MALENA E28.2 POLYCYSTIC OVARIAN SYNDROME 06/04/2015 ONUR SYSTEMS SOFTWARE MANAGER, MALENA F25.0 SCHIZOAFFECTIVE DISORDER, BIPOLAR TYPE 06/04/2015 ONUR SYSTEMS SOFTWARE MANAGER, MALENA E28.2 POLYCYSTIC OVARIAN SYNDROME 06/04/2015 ONUR SYSTEMS SOFTWARE MANAGER, MALENA F25.0 SCHIZOAFFECTIVE DISORDER, BIPOLAR TYPE 06/04/2015 ONUR SYSTEMS SOFTWARE MANAGER, MALENA E28.2 POLYCYSTIC OVARIAN SYNDROME 06/04/2015 ONUR SYSTEMS SOFTWARE MANAGER, MALENA F25.0 SCHIZOAFFECTIVE DISORDER, BIPOLAR TYPE 06/24/2015 ONUR SYSTEMS SOFTWARE MANAGER, MALENA Z30.9 ENCOUNTER FOR CONTRACEPTIVE MANAGEMENT, UNSPECIFIED 06/24/2015 ONUR SYSTEMS SOFTWARE MANAGER, MALENA Z76.0 ENCOUNTER FOR ISSUE OF REPEAT PRESCRIPTION 06/24/2015 ONUR SYSTEMS SOFTWARE MANAGER, MALENA Z30.9 ENCOUNTER FOR CONTRACEPTIVE MANAGEMENT, UNSPECIFIED 06/24/2015 ONUR SYSTEMS SOFTWARE MANAGER, MALENA Z76.0 ENCOUNTER FOR ISSUE OF REPEAT PRESCRIPTION 06/24/2015 ONUR SYSTEMS SOFTWARE MANAGER, MALENA Z30.9 ENCOUNTER FOR CONTRACEPTIVE MANAGEMENT, UNSPECIFIED 06/24/2015 ONUR SYSTEMS SOFTWARE MANAGER, MALENA Z76.0 ENCOUNTER FOR ISSUE OF REPEAT PRESCRIPTION 06/24/2015 ONUR SYSTEMS SOFTWARE MANAGER, MALENA Z30.9 ENCOUNTER FOR CONTRACEPTIVE MANAGEMENT, UNSPECIFIED 06/24/2015 ONUR SYSTEMS SOFTWARE MANAGER, MALENA Z76.0 ENCOUNTER FOR ISSUE OF REPEAT PRESCRIPTION 06/24/2015 ONUR SYSTEMS SOFTWARE MANAGER, MALENA Z30.9 ENCOUNTER FOR CONTRACEPTIVE MANAGEMENT, UNSPECIFIED 06/24/2015 ONUR SYSTEMS SOFTWARE MANAGER, MALENA Z76.0 ENCOUNTER FOR ISSUE OF REPEAT PRESCRIPTION 07/01/2015 PRUDENCE RUDOLPH Z79.891 GAS APPLIANCE INSTALLER (CURRENT) USE OF OPIATE ANALGESIC 07/17/2015 ONUR SYSTEMS SOFTWARE MANAGER, MALENA K59.00 CONSTIPATION, UNSPECIFIED 07/17/2015 ONUR SYSTEMS SOFTWARE MANAGER, MALENA M79.7 FIBROMYALGIA 07/17/2015 ONUR SYSTEMS SOFTWARE MANAGER, MALENA R11.0 NAUSEA 07/17/2015 ONUR SYSTEMS SOFTWARE MANAGER, MALENA K59.00 CONSTIPATION, UNSPECIFIED 07/17/2015 ONUR SYSTEMS SOFTWARE MANAGER, MALENA M79.7 FIBROMYALGIA 07/17/2015 ONUR SYSTEMS SOFTWARE MANAGER, MALENA R11.0 NAUSEA 07/17/2015 ONUR SYSTEMS SOFTWARE MANAGER, MALENA K59.00 CONSTIPATION, UNSPECIFIED 07/17/2015 ONUR SYSTEMS SOFTWARE MANAGER, MALENA M79.7 FIBROMYALGIA 07/17/2015 ONUR SYSTEMS SOFTWARE MANAGER, MALENA R11.0 NAUSEA 07/17/2015 ONUR SYSTEMS SOFTWARE MANAGER, MALENA K59.00 CONSTIPATION, UNSPECIFIED 07/17/2015 ONUR SYSTEMS SOFTWARE MANAGER, MALENA M79.7 FIBROMYALGIA 07/17/2015 ONUR SYSTEMS SOFTWARE MANAGER, MALENA R11.0 NAUSEA 07/24/2015 ONUR SYSTEMS SOFTWARE MANAGER, MALENA L90.8 OTHER ATROPHIC DISORDERS OF SKIN 07/24/2015 ONUR SYSTEMS SOFTWARE MANAGER, MALENA L90.8 OTHER ATROPHIC DISORDERS OF SKIN 07/24/2015 ONUR SYSTEMS SOFTWARE MANAGER, MALENA L90.8 OTHER ATROPHIC DISORDERS OF SKIN 07/28/2015 ONUR SYSTEMS SOFTWARE MANAGER, MALENA M25.519 PAIN IN UNSPECIFIED SHOULDER 07/28/2015 ONUR SYSTEMS SOFTWARE MANAGER, MALENA M54.10 RADICULOPATHY, SITE UNSPECIFIED 07/28/2015 ONUR SYSTEMS SOFTWARE MANAGER, MALENA M25.519 PAIN IN UNSPECIFIED SHOULDER 07/28/2015 ONUR SYSTEMS SOFTWARE MANAGER, MALENA M54.10 RADICULOPATHY, SITE UNSPECIFIED 10/27/2016 MONSE MITCHELL B37.3 Candidiasis of vulva and vagina 10/27/2016 MONSE MITCHELL G89.29 Other chronic pain 10/27/2016 MONSE MITCHELL M79.7 Fibromyalgia 10/27/2016 MONSE MITCHELL R11.0 Nausea 04/21/2017 MONSE MITCHELL E78.5 Hyperlipidemia, unspecified 04/21/2017 MONSE MITCHELL F15.10 Other stimulant abuse, uncomplicated 04/21/2017 MONSE MITCHELL 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, unspecified 04/21/2017 MONSE MITCHELL G89.29 Other chronic pain 04/21/2017 MONSE MITCHELL M79.7 Fibromyalgia 11/22/2017 STEPHANY CARLSON V [id number] Drug / Alcohol Assessment 11/22/2017 STEPHANY CARLSON V F15.10 Other stimulant abuse, uncomplicated 11/22/2017 STEPHANY CARLSON E11.9 Type 2 diabetes mellitus without complications (HCC) 11/22/2017 STEPHANY CARLSON E28.2 Polycystic ovarian syndrome 11/22/2017 STEPHANY CARLSON E78.5 Hyperlipidemia, unspecified 11/22/2017 STEPHANY CARLSON F15.10 Other stimulant abuse, uncomplicated 11/22/2017 STEPHANY CARLSON F15.129 Other stimulant abuse with intoxication, unspecified (HCC) 11/22/2017 STEPHANY CARLSON F17.200 Nicotine dependence, unspecified, uncomplicated 11/22/2017 STEPHANY CARLSON F32.9 Major depressive disorder, single episode, unspecified 11/22/2017 STEPHANY CARLSON J45.909 Unspecified asthma, uncomplicated 11/22/2017 ERWIN CARLSONReji Salcedo Z79.84 [facility] (current) use of oral hypoglycemic drugs 11/22/2017 ERWIN CARLSONReji Salcedo Z79.899 Other termite control representative (current) drug therapy 11/22/2017 AWILDA CARLSONSANCHEZ Salcedo Z90.49 Acquired absence of other specified parts of digestive tract 12/03/2017 PAT HARRIS E11.9 Type 2 diabetes mellitus without complications (HCC) 12/03/2017 PAT HARRIS E28.2 Polycystic ovarian syndrome 12/03/2017 PAT HARRIS E78.5 Hyperlipidemia, unspecified 12/03/2017 PAT HARRIS F17.200 Nicotine dependence, unspecified, uncomplicated 12/03/2017 PAT HARRIS F32.9 Major depressive disorder, single episode, unspecified 12/03/2017 PAT HARRIS L02.413 Cutaneous abscess of right upper limb 12/03/2017 PAT HARRIS L03.113 Cellulitis of right upper limb 12/03/2017 PAT HARRIS Z51.81 Encounter for therapeutic drug level monitoring 12/03/2017 PAT HARRIS Z79.84 intermediate designer (current) use of oral hypoglycemic drugs 12/03/2017 PAT HARRIS Z79.899 Other termite control representative (current) drug therapy 12/03/2017 PAT HARRIS Z90.49 Acquired absence of other specified parts of digestive tract 01/10/2018 HUBER MO V 435945 Addiction Problem 01/10/2018 HUBER MO V F15.929 Other stimulant use, unspecified with intoxication, unspecified (HCC) 01/10/2018 HUBER MO V R00.0 Tachycardia, unspecified 01/10/2018 HUBER MO E11.9 Type 2 diabetes mellitus without complications (HCC) 01/10/2018 HUBER MO E28.2 Polycystic ovarian syndrome 01/10/2018 HUBER MO E78.5 Hyperlipidemia, unspecified 01/10/2018 HUBER MO F15.129 Other stimulant abuse with intoxication, unspecified (HCC) 01/10/2018 HUBER MO F17.210 Nicotine dependence, cigarettes, uncomplicated 01/10/2018 HUBER MO F32.9 Major depressive disorder, single episode, unspecified 01/10/2018 HUBER MO F60.3 Borderline personality disorder (HCC) 01/10/2018 HUBER MO R00.0 Tachycardia, unspecified 01/10/2018 HUBER MO Z79.84 intermediate designer (current) use of oral hypoglycemic drugs 01/10/2018 HUBER MO Z79.899 Other termite control representative (current) drug therapy 01/10/2018 HUBER MO Z85.3 Personal history of malignant neoplasm of breast Procedures Code Description [place] [address] PSYCH DIAG INTER EXAM 03/01/2011 60745 AIRWAY INHALATION TREATMENT 12/20/2013 93159 EMERGENCY DEPT VISIT 12/20/2013 12956 EMERGENCY DEPT VISIT 12/20/2013 47886 X-RAY EXAM OF PELVIS 01/25/2014 01667 X-RAY EXAM OF HIP 01/25/2014 31663 X-RAY EXAM OF KNEE, 3 01/25/2014 66970 THER/PROPH/DIAG INJ, SC/IM 01/25/2014 94938 EMERGENCY DEPT VISIT 01/25/2014 42473 EMERGENCY DEPT VISIT 01/25/2014 J1885 TORADOL SYR 30MG/ML 01/25/2014 73047 PT EVALUATION 02/01/2014 20033 THERAPEUTIC EXERCISES 02/01/2014 41310 AQUATIC THERAPY/EXERCISES 02/01/2014 G8978 MOBILITY CURRENT STATUS 02/01/2014 G8979 MOBILITY GOAL STATUS 02/01/2014 11868 INJECTION FEE 04/07/2015 J1050 MEDROXYPROGESTERONE ACETATE 04/07/2015 71457 URINE DIPSTICK (Inhouse) 04/25/2015 89567 INJECTION FEE 05/14/2015 J1885 Ketorolac Tromethamine 15mg/ ml 05/14/2015 11394 HIV-1/HIV-2, SINGLE ASSAY (Inhouse) 05/14/2015 53921 -HERPES SELECT 05/15/2015 88665 SYPHILLIS RPR 05/15/2015 PAIN BRYAN KERN 05/15/2015 71315 INJECTION FEE 06/04/2015 J1885 Ketorolac Tromethamine 15mg/ ml 06/04/2015 99787 REMOVAL SKIN TAGS UP TO 15 07/25/2015 S0630 REMOVAL OF SUTURES 07/31/2015 13974 DRAWING AND HANDLING - VENOUS 08/18/2016 10305 EST EXPANDED PROBLEM FOCUSED 10/27/2016 86903 DRAWING AND HANDLING - VENOUS 04/21/2017 4004F PT SCREENED FOR TOBACCO USE AND RECEIVED COUNSELING 04/21/2017 35627 EST DETAILED 04/21/2017 Results Test Result Range HCG QUAL - 09/19/13 00:00 HCG N PROGESTERONE - 03/16/14 00:00 PROGE 3.2 ng/mL CBC WITH DIFF - 08/10/14 00:00 BASO% 0.4 % 0-2 EOS% 1.2 % 0-7.0 HCT 45.3 % 36.9-47.0 HGB 15.6 G/DL 12.0-16.0 LYMPH% 39.3 % 20-40 MCH 30.1 PG 27-31 MCHC 34.4 G/DL 33-37 MCV 87.5 FL 81-99 MONO% 6.6 % 0-10.0 MPV 9.0 FL 7.3-10.4 NEUTRO% 52.5 % 40-70 PLT 334 10^3u 130-400 RBC 5.2 10^6u 4.2-5.4 RDW 13.3 % 11.5-15.5 WBC 11.0 10^3u 4.8-10.8 NEUTRO# 5.8 10^3u 1.5-7.5 LYMPH# 4.3 10^3u 0.9-4.0 MONO# 0.7 10^3u 0-0.8 EOS# 0.1 10^3u 0-0.6 BASO# 0.0 10^3u 0-0.1 CMP - 08/10/14 00:00 ALB 3.8 G/DL 3.5-5 ALP 63 IU/L 25-72 ALT 23 IU/L 12-65 AST 13 IU/L 10-42 BCR 8.9 10-20 BUN 7 MG/DL 7-18 CA 8.9 MG/DL 8.4-10.2 CL 103 MEQ/L 98-107 CO2 27.7 MEQ/L 22-28 CREA 0.79 MG/DL 0.6-1.0 EGFR 84 eGFR >=60 GLU 89 MG/DL 70-105 K 3.9 MEQ/L 3.5-5.1 NA 141 MEQ/L 134-145 OSMSC 278.7 MOSML 280-300 TBIL 0.4 MG/DL 0.1-1.0 TP 7.3 G/DL 6.0-8.3 Albumin/Globulin Ratio 1.1 0-8 Anion Gap 10.3 8-16 CRP - 08/10/14 00:00 CRP < 0.2 MG/DL 0-1 UA - 09/06/14 00:00 PH 6.5 4.5-8.0 SG 1.003 UABILI NEGATIVE UABLD NEGATIVE UACOLOR YEL UAGLU NEGATIVE UAKET NEGATIVE UALEUK NEGATIVE UANIT NEGATIVE UAURO 0.2 0-0.2 CLARITY CL PROTEIN NEGATIVE UA WBC R05 UA RBC NORBC SQUAMOUS EPITHELIAL CELLS 1+ BACTERIA 1+ UCG GROUP - 09/06/14 00:00 UCG N Negative URINE DRUG TESTING PAIN MANAGE - 07/01/15 14:20 UDSPM Specimen sent to reference lab. Results to follow. CBC WITH AUTO DIFFERENTIAL - 12/03/17 12:50 BASOPHILS RELATIVE PERCENT 0.2 % 0.0-2.5 EOSINOPHILS RELATIVE PERCENT 1.2 % <=5.0 HEMATOCRIT 40.7 % 34.9-44.5 HEMOGLOBIN 13.7 g/dL 12.0-15.5 LYMPHOCYTES RELATIVE PERCENT 24.0 % 22.0-49.0 MEAN CORPUSCULAR HEMOGLOBIN 30.0 pg 26.0-34.0 MEAN CORPUSCULAR HEMOGLOBIN CONC 33.7 g/dL 31.0-37.0 MEAN CORPUSCULAR VOLUME 89.3 fL 81.6-98.3 MONOCYTES RELATIVE PERCENT 9.0 % 2.0-9.0 NEUTROPHILS RELATIVE PERCENT 65.6 % 40.0-75.0 NUCLEATED RED BLOOD CELLS 0 10E9/L <=0 PLATELET COUNT 264 10E9/L 150-450 RED BLOOD CELL COUNT 4.56 10E12/L 3.90-5.03 RED CELL DISTRIBUTION WIDTH 13.4 % 11.9-15.5 1088415 9.1 10E9/L 3.5-10.5 8449643 2.18 10E9/L 0.90-2.90 7605637 0.82 10E9/L 0.30-0.90 9963788 0.11 10E9/L 0.05-0.50 8318958 5.97 10E9/L 1.70-7.00 1616845 0.02 10E9/L 0.00-0.30 8823125 0 % PROTIME-INR - 12/03/17 12:50 INR 0.92 INR PROTHROMBIN TIME 12.4 sec. 11.8-14.8 LACTIC ACID, PLASMA - 12/03/17 12:50 LACTIC ACID 0.90 mmol/L 0.50-2.00 CK - 12/03/17 12:50 CPK 44 U/L 26-140 PROCALCITONIN - 12/03/17 12:50 PROCALCITONIN < ng/ml <=0.09 BLOOD CULTURE - 12/03/17 12:51 [id number] No Growth after 5 days incubation BLOOD CULTURE - 12/03/17 12:57 [id number] No Growth after 5 days incubation SALICYLATES - 12/03/17 13:24 SALICYLATE, URINE Negative TSH (REFLEX FREE T4 IF ABNORMAL) - 01/09/18 23:55 TSH 3.985 uIU/mL 0.400-4.000 CBC WITH AUTO DIFFERENTIAL - 01/09/18 23:55 BASOPHILS RELATIVE PERCENT 0.5 % 0.0-2.5 EOSINOPHILS RELATIVE PERCENT 0.3 % <=5.0 HEMATOCRIT 48.1 % 34.9-44.5 HEMOGLOBIN 16.1 g/dL 12.0-15.5 LYMPHOCYTES RELATIVE PERCENT 31.3 % 22.0-49.0 MEAN CORPUSCULAR HEMOGLOBIN 30.4 pg 26.0-34.0 MEAN CORPUSCULAR HEMOGLOBIN CONC 33.5 g/dL 31.0-37.0 MEAN CORPUSCULAR VOLUME 90.8 fL 81.6-98.3 MONOCYTES RELATIVE PERCENT 7.1 % 2.0-9.0 NEUTROPHILS RELATIVE PERCENT 60.8 % 40.0-75.0 NUCLEATED RED BLOOD CELLS 0 10E9/L <=0 PLATELET COUNT 356 10E9/L 150-450 RED BLOOD CELL COUNT 5.30 10E12/L 3.90-5.03 RED CELL DISTRIBUTION WIDTH 13.3 % 11.9-15.5 [id number] 13.6 10E9/L 3.5-10.5 [id number] 4.26 10E9/L 0.90-2.90 1728550 0.97 10E9/L 0.30-0.90 [id number] 0.04 10E9/L 0.05-0.50 2800287 8.29 10E9/L 1.70-7.00 [id number] 0.07 10E9/L 0.00-0.30 [id number] 0 % TROPONIN I - 01/09/18 23:55 TROPONIN I 0.007 ng/mL 0.000-0.040 Encounters ACCT No. Visit Date/Time Discharge Status Pt. Type Provider Facility Loc./Unit Complaint [id number] 03/18/2015 07:40:00 03/18/2015 07:40:00 DIS Outpatient FARHAD SETHI [facility] RAD [id number] 09/23/2014 20:42:00 09/23/2014 21:55:00 DIS Emergency JARETT LINCOLN [facility] EMR [id number] 09/06/2014 15:15:00 09/06/2014 17:32:00 DIS Emergency JAGRSAUL W [facility] EMR [id number] 08/10/2014 13:44:00 08/10/2014 18:07:00 DIS Emergency ALBA HIDALGO [facility] EMR [id number] 07/21/2014 20:06:00 07/21/2014 20:40:00 DIS Emergency JOHN ROSADO [facility] EMR [id number] 07/07/2014 12:26:00 07/07/2014 14:45:00 DIS Emergency LY ESCALONA [facility] EMR [id number] 03/16/2014 09:19:00 03/16/2014 09:19:00 DIS Outpatient ANNIA GARCIA [facility] EMR [id number] 03/04/2014 00:01:00 03/12/2014 14:31:00 DIS Outpatient FARHAD SETHI [facility] PT [id number] 02/02/2014 00:01:00 03/03/2014 23:59:00 DIS Outpatient FARHAD SETHI [facility] PT [id number] 02/21/2014 14:22:00 02/21/2014 14:22:00 DIS Outpatient JARETT LINCOLN [facility] RAD [id number] 01/02/2014 08:37:00 02/01/2014 23:59:00 DIS Outpatient FARHAD SETHI [facility] PT [id number] 01/25/2014 14:03:00 01/25/2014 15:50:00 DIS Emergency SAUL EPSTEIN W [facility] EMR [id number] 12/31/2013 20:19:00 12/31/2013 21:09:00 DIS Emergency JOEY OJEDA [facility] EMR [id number] 12/20/2013 15:22:00 12/20/2013 16:10:00 DIS Emergency JOHN ROSADO [facility] EMR [id number] 09/19/2013 09:05:00 09/19/2013 13:25:00 DIS Inpatient CHANTALE DUBOSE [facility] OPS [id number] 08/29/2013 08:54:00 08/29/2013 08:54:00 DIS Outpatient SURAJ ÁLVAREZ Roque [facility] RAD [id number] 06/29/2013 13:10:00 06/29/2013 14:17:00 DIS Emergency SAUL EPSTEIN W [facility] EMR [id number] 06/13/2013 14:21:00 06/13/2013 16:21:00 DIS Emergency SAUL EPSTEIN [facility] EMR [id number] 03/03/2014 00:00:00 Document Registration [id number] 03/03/2014 00:00:00 Document Registration [id number] 05/31/2013 11:49:47 Document Registration [id number] 03/03/2013 00:00:00 Document Registration [id number] 03/03/2013 00:00:00 Document Registration [id number] 04/30/2015 16:52:00 04/30/2015 23:59:59 CLS Emergency PAT ROSARIO [facility] COL.ER [id number] 07/01/2015 14:20:00 07/01/2015 14:20:00 DIS Outpatient [facility] [id number] 04/21/2017 13:00:00 04/21/2017 23:59:59 CLS Outpatient [facility] [id number] 10/27/2016 08:56:00 10/27/2016 23:59:59 CLS Outpatient [facility] [id number] 03/18/2017 20:53:00 Document Registration [id number] 02/10/2017 13:47:00 Document Registration [id number] 01/10/2017 20:32:00 Document Registration [id number] 10/08/2016 08:45:00 Document Registration [id number] 08/18/2016 11:21:00 Document Registration [id number] 07/06/2018 09:00:00 07/06/2018 23:59:59 CLS Outpatient ARLEN FRANCIS, [facility] [id number] 07/22/2017 20:07:26 ACT Unknown [id number] 07/31/2015 10:45:00 07/31/2015 23:59:59 CLS Outpatient [employer] Reid [id number] 07/28/2015 13:01:00 07/28/2015 23:59:59 CLS Outpatient [employer] MANA[employer]ENA Reid [id number] 07/24/2015 09:36:00 07/24/2015 23:59:59 CLS Outpatient [employer] MANA[employer]ENA Reid [id number] 07/17/2015 09:11:00 07/17/2015 23:59:59 CLS Outpatient [employer] MANA[employer]ALENA Reid [id number] 06/24/2015 12:55:00 06/24/2015 23:59:59 CLS Outpatient [employer] SOFTWARE MANAGER, MALENA [id number] 06/04/2015 09:09:00 06/04/2015 23:59:59 CLS Outpatient [employer] SOFTWARE MANAGER, MALENA [id number] 05/14/2015 15:26:00 05/14/2015 23:59:59 CLS Outpatient [employer] SOFTWARE MANAGER, MALENA [id number] 05/14/2015 00:00:00 05/14/2015 23:59:59 CLS Outpatient BENOIT MARMOLEJO APRN [id number] 04/25/2015 10:16:00 04/25/2015 23:59:59 CLS Outpatient BENOIT MARMOLEJO APRN [id number] 04/07/2015 16:12:00 04/07/2015 23:59:59 CLS Outpatient JARETT PINO MD [id number] 01/15/2018 12:16:22 01/15/2018 23:59:59 CLS Outpatient MADAY NAVAS [facility] [id number] 01/09/2018 23:09:38 01/10/2018 01:47:00 DIS Emergency HUBER MO [facility] [id number] 12/03/2017 12:28:22 12/03/2017 15:40:00 DIS Emergency PAT HARRIS [facility] [id number] 11/22/2017 19:31:55 11/22/2017 23:21:00 DIS Emergency STEPHANY CARLSON [facility] EMD [id number] 02/12/2011 14:54:00 02/12/2011 23:59:59 CLS Outpatient PEEWEE CHRISTOPHER DO
--- OUTSIDE RECORDS SUMMARY | 2018-07-17 22:28 | XMS REPORT | Clinical Summary ---
Author Author Admin, ARIAN Organization [facility] Address Unknown Phone Unavailable Allergies, Adverse [...] cap by mouth twice daily DOXYCYCLINE HYCLATE 47185176730 No Longer Active Najma Vaughn APRN Active MULTIVITAMINS CAPS 1 tablet daily MULTIPLE VITAMIN 48782936605 Active Juan Smith MD Active CYCLOBENZAPRINE HCL 10 MG TABS 1/2 - 1 tab by mouth three times daily if needed for spasms/pain CYCLOBENZAPRINE HCL 48759799051 Active Ian Valdez MD Active GLUCOPHAGE 500 MG TABS 1 tab BID with morning and night meals METFORMIN HCL 58463249962 Active Eva Ferrara MD PhD Active PROGESTERONE MICRONIZED 100 MG CAPS 2 caps daily day 16 thru 25 of cycle 2013 PROGESTERONE MICRONIZED 91099045909 Active Eva Ferrara MD PhD Active TERBINAFINE HCL 1 % CREA Apply bid to rash TERBINAFINE HCL 67126946354 No Longer Active Eva Ferrara MD PhD Active TOPAMAX 25 MG TABS 1 tab po qhs x 1 week, then take 2 tabs po qhs TOPIRAMATE 35376511476 No Longer Active Thom Gilbert MD Active ULTRAM 50 MG TAB take 1 tab po q6hrs prn pain TRAMADOL HCL 65233298698 Active Ian Valdez MD Active LAMISIL AT 1 % CREA apply bid to rash TERBINAFINE HCL 12758262117 No Longer Active Thom Gilbert MD Active TERBINAFINE HCL 250 MG TABS 1 qDay TERBINAFINE HCL 70557186127 No Longer Active Ian Valdez MD Active XANAX 0.25 MG TABS take 1 tab po bid prn anxiety. ALPRAZOLAM 58546644103 No Longer Active Ian Valdez MD Active FISH OIL 1000 MG CAPS 2 caps PO once daily at bedtime OMEGA-3 FATTY ACIDS 47677946659 No Longer Active Ian Valdez MD Active KLOR-CON M20 20 MEQ CR-TABS take 1 tab po qday with lasix POTASSIUM CHLORIDE GALILEO CR 13513605061 Active Ian Valdez MD Active LASIX 20 MG TAB 1 tablet by mouth daily prn swelling FUROSEMIDE 38851362071 Active Ian Valdez MD Active FLONASE 50 MCG/ACT SUSP 2 puffs in each nostril once daily at bedtime FLUTICASONE PROPIONATE 47818225527 Active Ian Valdez MD Active [facility] MELATONIN 3 MG TABS 2 tabs PO at bedtime MELATONIN 21043179760 Active Ian Valdez MD Active PULMICORT FLEXHALER 180 MCG/ACT AEPB 2 INH BID BUDESONIDE 52415141214 No Longer Active Ian Valdez MD Active METFORMIN HCL 500 MG TB24 1 TAB PO Q HS METFORMIN HCL 31037553961 No Longer Active Ian Valdez MD Active CYCLOBENZAPRINE HCL 10 MG TABS 1 PO q 8 hrs PRN muscle spasm 2012 CYCLOBENZAPRINE HCL 82458711947 No Longer Active Ian Valdez MD Active AZITHROMYCIN 500 MG TABS 1 PO q day x 6 days AZITHROMYCIN 89093895687 No Longer Active Ian Valdez MD Active CIPRO 500 MG TAB 1 tablet by mouth twice daily CIPROFLOXACIN HCL 72292892640 No Longer Active Ian Valdez MD Active PREDNISONE 20 MG TABS 3 qd x 2d, 2 qd x 2d, 1 qd x 2d, 1/2 qd x 2d PREDNISONE 99833407067 No Longer Active Law FIGUEROA Active CELEXA 40 MG TABS 2 PO DAILY CITALOPRAM HYDROBROMIDE 86034744274 Active Ian Valdez MD Active OMEPRAZOLE 20 MG CPDR 1 tablet by mouth daily OMEPRAZOLE 33872043709 No Longer Active [place] FIGUEROA Active KLONOPIN 0.5 MG TABS 1 TABLET PO PRN CLONAZEPAM 13800744247 No Longer Active [place] FIGUEROA Active MOBIC 7.5 MG TABS 1 tablet by mouthonce a day MELOXICAM 36049360274 No Longer Active [place] FIGUEROA Active ZITHROMAX 1 GM PACK DIRECTED AZITHROMYCIN 77656155423 No Longer Active Ian Valdez MD Active ALBUTEROL SULFATE 0.083 % NEBU SOLN one vial per nebulizer every 4-6 hours as needed ALBUTEROL SULFATE 43441557176 Active Ian Valdez MD Active CHANTIX STARTING MONTH REBEKAH 0.5 MG X 11 & 1 MG X 42 TABS 0.5mg daily for 3 days , then 0.5mg BID for 4 days, then 1mg BID VARENICLINE TARTRATE 10879548075 No Longer Active Ian Valdez MD Active ZITHROMAX 1 GM PACK DIRECTED AZITHROMYCIN 83761004642 No Longer Active Ian Valdez MD Active AURALGAN 1.4-5.5 % SOLN BENZOCAINE-ANTIPYRINE 16296806224 No Longer Active Ian Valdez MD Active PREDNISONE 20 MG TAB 3 tabs daily for 3 days, 2 tab daily for 3 days, 1 tab daily for 2 days, then 1/2 tab dialy for 2 days PREDNISONE 85439413086 No Longer Active Ian Valdez MD Active SIMVASTATIN 40 MG TABS 1 TABLET PO Q HS SIMVASTATIN 71332130015 Active Ian Valdez MD Active SIMVASTATIN 80 MG TABS Take one by mouth daily SIMVASTATIN 76703190838 No Longer Active Ian Valdez MD Active PREDNISONE 20 MG TAB 2 tabs daily for 3 days, 1 tab daily for 3 days, 1/2 tab daily for 2 days PREDNISONE 34464628803 No Longer Active Ian Valdez MD Active ZITHROMAX 250 MG TAB 2 po today, then 1 po q days 2-5 AZITHROMYCIN 18316843901 No Longer Active Ian Valdez MD Active TRAZODONE HCL 100 MG TABS 2 TABS PO Q HS TRAZODONE HCL 27365375102 Active Ian Valdez MD Active ZITHROMAX 250 MG TAB 2 po today, then 1 po q days 2-5 AZITHROMYCIN 05200205129 No Longer Active Ian Valdez MD Active SIMVASTATIN 80 MG TABS Take one by mouth daily SIMVASTATIN 80 MG TABS 743430 SIMVASTATIN Inactive AURALGAN 1.4-5.5 % SOLN AURALGAN 1.4-5.5 % SOLN BENZOCAINE-ANTIPYRINE Inactive ZITHROMAX 1 GM PACK DIRECTED ZITHROMAX 1 GM PACK 631318 AZITHROMYCIN Inactive CHANTIX STARTING MONTH REBEKAH 0.5 MG X 11 & 1 MG X 42 TABS 0.5mg daily for 3 days , then 0.5mg BID for 4 days, then 1mg BID CHANTIX STARTING MONTH REBEKAH 0.5 MG X 11 & 1 MG X 42 TABS VARENICLINE TARTRATE Inactive ZITHROMAX 1 GM PACK DIRECTED ZITHROMAX 1 GM PACK 710774 AZITHROMYCIN Inactive MOBIC 7.5 MG TABS 1 tablet by mouthonce a day MOBIC 7.5 MG TABS 491548 MELOXICAM Inactive KLONOPIN 0.5 MG TABS 1 TABLET PO PRN KLONOPIN 0.5 MG TABS 739291 CLONAZEPAM Inactive CIPRO 500 MG TAB 1 tablet by mouth twice daily CIPRO 500 MG TAB 287586 CIPROFLOXACIN HCL Inactive AZITHROMYCIN 500 MG TABS 1 PO q day x 6 days AZITHROMYCIN 500 MG TABS 6739282 AZITHROMYCIN Inactive CYCLOBENZAPRINE HCL 10 MG TABS 1 PO q 8 hrs PRN muscle spasm 2012 CYCLOBENZAPRINE HCL 10 MG TABS 143941 CYCLOBENZAPRINE HCL Inactive METFORMIN HCL 500 MG [...] bid prn anxiety. XANAX 0.25 MG TABS 809822 ALPRAZOLAM Inactive LAMISIL AT 1 % CREA apply bid to rash LAMISIL AT 1 % CREA 754420 TERBINAFINE HCL Inactive TOPAMAX 25 MG TABS 1 tab po qhs x 1 week, then take 2 tabs po qhs TOPAMAX 25 MG TABS 723004 TOPIRAMATE Inactive TERBINAFINE HCL 1 % CREA Apply bid to rash TERBINAFINE HCL 1 % CREA 694312 TERBINAFINE HCL Inactive ZITHROMAX 250 MG TAB 2 po today, then 1 po q days 2-5 ZITHROMAX 250 MG TAB 9720272 AZITHROMYCIN Inactive ZITHROMAX 250 MG TAB 2 po today, then 1 po q days 2-5 ZITHROMAX 250 MG TAB 1536719 AZITHROMYCIN Inactive PREDNISONE 20 MG TAB 2 tabs daily for 3 days, 1 tab daily for 3 days, 1/2 tab daily for 2 days PREDNISONE 20 MG TAB 265229 PREDNISONE Inactive PREDNISONE 20 MG TAB 3 tabs daily for 3 days, 2 tab daily for 3 days, 1 tab daily for 2 days, then 1/2 tab dialy for 2 days PREDNISONE 20 MG TAB 556800 PREDNISONE Inactive OMEPRAZOLE 20 MG CPDR 1 tablet by mouth daily OMEPRAZOLE 20 MG CPDR 740779 OMEPRAZOLE Inactive PREDNISONE 20 MG TABS 3 qd x 2d, 2 qd x 2d, 1 qd x 2d, 1/2 qd x 2d PREDNISONE 20 MG TABS 229201 PREDNISONE Inactive TERBINAFINE HCL 250 MG TABS 1 qDay TERBINAFINE HCL 250 MG TABS 131144 TERBINAFINE HCL Inactive DOXYCYCLINE HYCLATE 100 MG CAP 1 cap by mouth twice daily DOXYCYCLINE HYCLATE 100 MG CAP 546394 DOXYCYCLINE HYCLATE Inactive Advance Directives Directive Description Start Date NO HEROIC MEASURES Immunizations Vaccine Administration Date Value Standard Description Boostrix (Tetanus toxoid, reduced diphtheria toxoid and acellular pertussis vaccine, adsorbed), booster Boostrix [[id number]] tetanus toxoid, reduced diphtheria toxoid, and acellular [...] 1.44 m[iU]/mL 0.36-3.74 cholesterol, serum 144 mg/dL 678-106 7209/11/19 triglyceride, serum, fasting 172 mg/dL 30-200 HDL cholesterol, serum 30 mg/dL 32-96 LDL cholesterol, serum 80 mg/dL 0-130 sodium, serum 137 mmol/L 579-366 3633/11/19 potassium, serum 4.1 mmol/L 3.5-5.2 chloride, serum [...] mg/dL Encounters Code Encounter Date Provider Facility CPT-43790 Level 3 Est. Patient 15:50:27 HOME HEALTH PROVIDER Najma Vaughn SAMI [facility] CPT-89621 Level 4 Est. Patient 21:20:00 HOME HEALTH PROVIDER Ian Valdez MD [facility] CPT-94549 Level 3 Est. Patient 15:32:41 HOME HEALTH PROVIDER Juan Smith MD [facility] CPT-22220 Level 3 Est. Patient 14:45:01 CDT Eva Ferrara MD PhD [facility] CPT-87029 Level 3 Est. Patient 14:54:10 CDT Ian Valdez MD [facility] CPT-48576 Level 4 Est. Patient 20:36:52 CDT Ian Valdez MD [facility] CPT-00461 Level 4 Est. Patient 11:14:30 HOME HEALTH PROVIDER Ian Valdez MD [facility] CPT-90036 Level 3 Est. Patient 19:08:34 HOME HEALTH PROVIDER Ian Valdez MD [facility] CPT-54031 Level 3 Est. Patient 13:17:39 HOME HEALTH PROVIDER Ian Valdez MD [facility] CPT-63342 Level 4 Est. Patient 18:56:10 CDT Ian Valdez MD [facility] CPT-88222 Level 4 Est. Patient 16:55:56 CDT Ian Valdez MD [facility] CPT-50603 Level 3 Est. Patient 11:27:07 CDT Ian Valdez MD [facility] CPT-51046 Level 3 Est. Patient 15:17:[address] [facility] CPT-51932 Level 4 Est. Patient 15:13:[address] [facility] CPT-95995 Level 3 Est. Patient 14:25:12 HOME HEALTH PROVIDER Ian Valdez MD [facility] CPT-03773 Level 3 Est. Patient 10:24:46 CDT Ian Valdez MD [facility] CPT-16940 Level 3 Est. Patient 15:34:19 CDT Ian Valdez MD [facility] CPT-34585 Level 3 Est. Patient 14:22:41 CDT Ian Valdez MD [facility] CPT-24306 Level 3 Est. Patient 15:07:22 HOME HEALTH PROVIDER Ian Valdez MD [facility] CPT-30373 Level 3 New Patient 09:06:43 HOME HEALTH PROVIDER Ian Valdez MD [facility] CPT-07025 Level 3 Est. Patient 15:09:00 HOME HEALTH PROVIDER Ian Valdez MD [facility] Procedures Code Procedure Name Date Entry Date Standard Description CPT-OV Office Visit 16:24:22 CDT CPT-OV Office Visit 15:15:29 HOME HEALTH PROVIDER CPT-OV Office Visit 15:49:26 HOME HEALTH PROVIDER CPT-J1885 Toradol 60 mg (Ketorolac) 15:37:32 CDT CPT-90840 Abx/Therapy Injection 15:37:32 CDT CPT-J1885 Toradol 60 mg (Ketorolac) 14:45:01 CDT CPT-OV Office Visit 15:19:52 CDT CPT-OV Office Visit 10:41:01 CDT CPT-95163 Core biop breast wo imaging 16:50:06 CDT CPT-OV Office Visit 16:50:05 CDT CPT-54324 UHCG (floor use only) 13:39:36 CDT CPT-66745 Nexplanon Placement 10:11:48 CDT CPT-J7307 Nexplanon (Implant) 10:11:48 CDT CPT-OV Office Visit 09:54:18 CDT CPT-61767 EKG Trac and Interp 16:50:19 CDT CPT-50373 Venipuncture Draw Fee 15:06:08 CDT CPT-J2930 Solu Medrol 125 mg (Methyl Prednisolone Sodium Succinate) 12:44:46 CDT CPT-J1055 Depo Provera 150 mg (Medroxyprogesterone) 12:44:46 CDT CPT-37057 Abx/Therapy Injection 12:44:46 CDT CPT-J1055 Depo Provera 150 mg (Medroxyprogesterone) 14:28:41 CDT CPT-J2930 Solu Medrol 125 mg (Methyl Prednisolone Sodium Succinate) 14:22:41 CDT CPT-14186 Administration single or combination vaccine inc oral 10 :08:06 CDT CPT-66361 Tdap 10:08:06 CDT CPT-G0402 Wlcm To Medicare Ex 22:17:30 CDT CPT-15555 Venipuncture Draw Fee 10:33:07 HOME HEALTH PROVIDER CPT-79522 Venipuncture Draw Fee 10:17:37 HOME HEALTH PROVIDER CPT-G0403 EKG Wlc To Medicare 22:17:30 CDT
[2018-07-17 22:55] VITALS: BP 161/85
== END 2018-07-17 22:55 | disposition home or self-care (01) ==
LOC: EDUNIT# 20:40 → ER FS 20:42
DX: F41.0 Panic disorder [episodic paroxysmal anxiety] (principal); R07.89 Other chest pain; F17.200 Nicotine dependence, unspecified, uncomplicated; Z88.0 Allergy status to penicillin; Z91.040 Latex allergy status; Z88.8 Allergy status to other drugs, medicaments and biological substances; Z79.52 Long term (current) use of systemic steroids
CPT/HCPCS: 36415; 80053; 80306; 81000; 84484; 84703; 85007; 85027; 93005

== ENCOUNTER → 2018-09-13 | Outpatient (CLI) | payer MEDICARE ==
--- NOTE | 2018-09-13 13:54 | Diagnostic Imaging Report ---
Clinical indication: Patient with chronic neck pain. No known injury. Exam: X-ray of the cervical spine, 4 views. Comparison: None. Findings: Of note, the C7 vertebra is partially obscured due to overlapping anatomical structures. There is no acute cervical spine fracture or dislocation. There is straightening of the cervical spine posture. There is mildly hypertrophic anterior spurs at the C4-C6 levels. Intervertebral disc heights are well-maintained. There is no prevertebral soft tissue swelling. Odontoid views are unremarkable. 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 Dictated by: Dictated on workstation # [id number]
== END ==
LOC: RAD FS 12:58
PROVIDERS: ATTEND Nurse Practitioner Family
DX: M47.812 Spondylosis without myelopathy or radiculopathy, cervical region (principal)
CPT/HCPCS: 72040

== ENCOUNTER → 2019-05-18 | Outpatient (CLI) | payer MEDICARE ==
--- NOTE | 2019-05-18 11:54 | Diagnostic Imaging Report ---
EXAMINATION: Left shoulder at 11:13 a.m. INDICATION: Shoulder pain. Two views were obtained. COMPARISON: There are no prior shoulder studies available for comparison. FINDINGS: There is no fracture, dislocation or acute bony abnormality evident. The glenohumeral and acromioclavicular joints are fairly well-maintained and appear similar to the chest exam of 03/13/2010. The soft tissues are unremarkable. IMPRESSION: There is no evidence for an acute bony abnormality. Dictated by: Dictated on workstation # [id number]
== END ==
LOC: RAD FS 11:06
PROVIDERS: ATTEND Nurse Practitioner Family
DX: M25.512 Pain in left shoulder (principal)
CPT/HCPCS: 73030

== ENCOUNTER 2020-03-08 13:26 | Emergency (ER) | payer MEDICARE ==
[~2020-03-08] VITALS: Ht 158 cm; Wt 92.0 kg
[2020-03-08 14:09] VITALS: BP 151/105
--- NOTE | 2020-03-08 14:10 | ED Cardiac General ---
History of Present Illness General Chief Complaint: Cardiac/General Problems Stated Complaint: HIGH BP Source: patient Exam Limitations: no limitations History of Present Illness Date Seen by Provider: Mar 08, 2020 Time Seen by Provider: 14:06 39-year-old female presenting to the emergency department with a complaint of elevated blood pressures. PMH psychiatric illnesses. Patient states that she has been having persistently elevated blood pressures with systolics in the 170s and 160s over the past 3 days. She normally runs blood pressures she reports of 120/80. She has no history of hypertension. She takes no antihypertensives. She does still smoke. She does note that she has been battling a head cold for the past few days and has tested negative for COVID-19 on . She did take Delsym cold medication, but over 24 hours ago. She reports some lightheadedness, but denies chest pain, dyspnea, abdominal pain, headaches. She does still have a persisting cough, but reports that she feels that she is improving. She reports her biggest concern is pertaining to the elevated blood pressures and is requesting antihypertensives to be started. She has a follow- up appointment with her primary care provider scheduled for Tuesday. Allergies and Home Medications Allergies Coded Allergies: Penicillins (Verified Allergy, Unknown, 10/16/09) haloperidol (Verified Allergy, Unknown, 07/17/18) latex (Unverified Allergy, Unknown, 07/17/18) Home Medications Albuterol 17 Gm Aerosol, 1 GM IH UD, (Reported) Citalopram Hydrobromide 40 Mg Tablet, 2 EACH PO DAILY, (Reported) Doxycycline Monohydrate 100 Mg Tablet, 100 MG PO BID Prescribed by: SOPHIA BAER on 03/13/10 143 Prednisone 20 Mg Tab, 40 MG PO DAILY Prescribed by: SOPHIA BAER on 03/13/10 1435 Simvastatin 40 Mg Tablet, 40 MG PO DAILY, (Reported) Thiothixene 20 Mg Capsule, 20 MG PO DAILY, (Reported) [Trazadone] , 200 MG PO HS, (Reported) Patient Home Medication List Home Medication List Reviewed: Yes Review of Systems Review of Systems Constitutional: see HPI Respiratory: Cough; Denies Orthopnea, Denies Shortness of Air Cardiovascular: Denies Chest Pain Psychiatric/Neurological: Other (Lightheadedness) All Other Systems Reviewed Negative Unless Noted: Yes Past Vfiazcl-Zihnon-Vjpfhl Hx Patient Social History Drug of Choice: meth Smoking Status: Current Someday Smoker 2nd Hand Smoke Exposure: No Recent Hopitalizations: No Seasonal Allergies Seasonal Allergies: No Past Medical History Surgeries: Yes Gallbladder Respiratory: No Cardiac: No Neurological: No Reproductive Disorders: Yes (bi-corniated uterus) Genitourinary: No Gastrointestinal: No Musculoskeletal: Yes Fibromyalgia Endocrine: No HEENT: No Cancer: No Psychosocial: Yes Anxiety, Depression Integumentary: No Blood Disorders: No Physical Exam Vital Signs Vital Signs - First Documented 03/08/20 14:09 Temp 37.2 Pulse 105 Resp 17 B/P (MAP) 151/105 (120) Pulse Ox 96 O2 Delivery Room Air Capillary Refill : Height, Weight, BMI Height: 5'3.00" Weight: 200lbs. oz. 90.916780ru; BMI Method:Stated General Appearance: No Apparent Distress, WD/WN Neck: Supple Respiratory: Lungs Clear, Normal Breath Sounds, No Accessory Muscle Use, No Respiratory Distress, Other (Audible cough.) Cardiovascular: Regular Rate, Rhythm, No Edema, No JVD Gastrointestinal: No Distended Extremity: Normal Inspection Neurologic/Psychiatric: Alert, Normal Mood/Affect Skin: Normal Color, Warm/Dry Progress/Results/Core Measures Results/Orders Lab Results Laboratory Tests Test 03/08/20 14:27 03/08/20 14:43 Range/Units White Blood Count 9.9 4.3-11.0 10^3/uL Red Blood Count 5.09 4.35-5.85 10^6/uL Hemoglobin 15.7 11.5-16.0 G/DL Hematocrit 45 35-52 % Mean Corpuscular Volume 89 80-99 FL Mean Corpuscular Hemoglobin 31 25-34 PG Mean Corpuscular Hemoglobin Concent 35 32-36 G/DL Red Cell Distribution Width 12.0 10.0-14.5 % Platelet Count 357 130-400 10^3/uL Mean Platelet Volume 9.0 7.4-10.4 FL Immature Granulocyte % (Auto) 0 % Neutrophils (%) (Auto) 50 42-75 % Lymphocytes (%) (Auto) 42 12-44 % Monocytes (%) (Auto) 6 0-12 % Eosinophils (%) (Auto) 2 0-10 % Basophils (%) (Auto) 1 0-10 % Neutrophils # (Auto) 4.9 1.8-7.8 X 10^3 Lymphocytes # (Auto) 4.2 H 1.0-4.0 X 10^3 Monocytes # (Auto) 0.5 0.0-1.0 X 10^3 Eosinophils # (Auto) 0.2 0.0-0.3 10^3/uL Basophils # (Auto) 0.1 0.0-0.1 10^3/uL Immature Granulocyte # (Auto) 0.0 0.0-0.1 10^3/uL Sodium Level 137 135-145 MMOL/L Potassium Level 3.7 3.6-5.0 MMOL/L Chloride Level 99 98-107 MMOL/L Carbon Dioxide Level 26 21-32 MMOL/L Anion Gap 12 5-14 MMOL/L Blood Urea Nitrogen 7 7-18 MG/DL Creatinine 0.69 0.60-1.30 MG/DL Estimat Glomerular Filtration Rate > 60 BUN/Creatinine Ratio 10 Glucose Level 103 70-105 MG/DL Calcium Level 10.0 8.5-10.1 MG/DL Urine Test NEGATIVE NEGATIVE My Orders Orders - EFRAIN LARIOS MD Basic Metabolic Panel (03/08/20 14:04) Hcg,Qualitative Urine (03/08/20 14:04) Ekg Tracing (03/08/20 14:04) Cbc With Automated Diff (03/08/20 14:11) Vital Signs/I&O 03/08/20 14:09 Temp 37.2 Pulse 105 Resp 17 B/P (MAP) 151/105 (120) Pulse Ox 96 O2 Delivery Room Air Progress Progress Note : Progress Note Patient was nontoxic in appearance. She showed me photos of her elevated blood pressures in the range of 160-170 systolics. Her blood pressures had already improved in the emergency department to around 140/90. I reviewed with her the importance of monitoring her blood pressures, but I suspect her blood pressures have been falsely elevated due to her recent illness. Given that she has been having blood pressures normally of 120/80, I discussed with her that starting her on an antihypertensive could potentially cause her to have hypotension when she returns to normal BP. Basic laboratory work was obtained assessing renal function, EKG, urine test. Patient already has a follow-up appointment on Tuesday scheduled with her primary care provider. She was understanding and in agreement with the plan of care. Patient's laboratory work was reassuring with normal renal function, negative urine test, normal CBC along with a reassuring EKG. I reviewed the laboratory work with the patient and the plan of care. All questions were answered prior to discharge. Presentation consistent with asymptomatic hypertension. Patient's persistent cough is likely viral in nature. She was on room air and having nonlabored respirations. Initial ECG Impression Date: Mar 08, 2020 Initial ECG Impression Time: 14:35 Comment EKG obtained on 03/08/2020 at 1414 revealed normal sinus rhythm, rate of 91, normal axis, no evidence of active ischemia, normal intervals, regular rhythm, no evidence of hypertrophy. Departure Impression Primary Impression: Asymptomatic hypertension Additional Impression: Dizziness Disposition: 01 HOME, SELF-CARE Condition: Stable Departure-Patient Inst. Decision time for Depature: 15:09 Referrals: [facility] (PCP) Primary Care Physician JUAN C ROSALES APRN (Family) Primary Care Physician Follow up on Tuesday regarding your blood pressure. Patient Instructions: High Blood Pressure in Adults Add. Discharge Instructions: You were seen in the emergency department for elevated blood pressures. Please continue to check your blood pressures at home. Record these values and bring them with you to your follow-up appointment with your primary care provider. It is normal for blood pressures to transiently be elevated, but your blood pressure improved in the emergency department without medication. Your laboratory work also was reassuring. Please keep your currently scheduled appointment with your primary care provider. Return to the emergency department with new, worsening, or concerning symptoms. All discharge instructions reviewed with patient and/or family. Voiced understanding. EFRAIN LARIOS MD Mar 08, 2020 14:10
[2020-03-08 14:41] LABS: BASOPHILS % (AUTO) 1 % (0-10); EOSINOPHILS % (AUTO) 2 % (0-10); HEMATOCRIT 45 % (35-52); HEMOGLOBIN 15.7 G/DL (11.5-16.0); LYMPHOCYTES % (AUTO) 42 % (12-44); MEAN CORPUSCULAR HEMOGLOBIN 31 PG (25-34); MEAN CORPUSCULAR HGB CONC 35 G/DL (32-36); MEAN CORPUSCULAR VOLUME 89 FL (80-99); MONOCYTES % (AUTO) 6 % (0-12); NEUTROPHILS % (AUTO) 50 % (42-75); PLATELET COUNT 357 10^3/uL (130-400); WHITE BLOOD COUNT 9.9 10^3/uL (4.3-11.0)
[2020-03-08 14:42] LABS: BASOPHILS # (AUTO) 0.1 10^3/uL (0.0-0.1); EOSINOPHILS # (AUTO) 0.2 10^3/uL (0.0-0.3); LYMPHOCYTES # (AUTO) 4.2 X 10^3 (1.0-4.0); MONOCYTES # (AUTO) 0.5 X 10^3 (0.0-1.0); NEUTROPHILS # (AUTO) 4.9 X 10^3 (1.8-7.8)
[2020-03-08 14:54] LABS: BUN/CREATININE RATIO 10; CARBON DIOXIDE 26 MMOL/L (21-32); CHLORIDE 99 MMOL/L (98-107); CREATININE SERUM 0.69 MG/DL (0.60-1.30); GFR ESTIMATED > 60; POTASSIUM 3.7 MMOL/L (3.6-5.0); SODIUM 137 MMOL/L (135-145)
[2020-03-08 14:55] LABS: GLUCOSE 103 MG/DL (70-105)
== END 2020-03-08 15:14 | disposition home or self-care (01) ==
LOC: EDUNIT# 13:26 → ER FS 13:28
DX: I10 Essential (primary) hypertension (principal); R42 Dizziness and giddiness; F41.9 Anxiety disorder, unspecified; F32.9 Major depressive disorder, single episode, unspecified; F17.200 Nicotine dependence, unspecified, uncomplicated; Z88.0 Allergy status to penicillin; Z91.040 Latex allergy status; Z88.8 Allergy status to other drugs, medicaments and biological substances; Z79.52 Long term (current) use of systemic steroids; Z20.828 Contact with and (suspected) exposure to other viral communicable diseases
CPT/HCPCS: 36415; 80048; 84703; 85025; 93005

== ENCOUNTER → 2020-11-04 | Outpatient (CLI) | payer MEDICARE ==
--- NOTE | 2020-11-04 14:37 | Diagnostic Imaging Report ---
PROCEDURE: CT sinuses without contrast. TECHNIQUE: Multiple contiguous axial images were obtained through the sinuses without the use of intravenous contrast. Coronal and sagittal reformations were then performed. Auto Exposure Controls were utilized during the CT exam to meet ALARA standards for radiation dose reduction. INDICATION: Sinus congestion. COMPARISON: Correlation is limited to a head CT performed in January 2010. FINDINGS: The mastoid air cells and middle ear cavities are clear. The external auditory canals are normal. There are some degenerative changes but no acute finding at the temporomandibular joints. The sphenoid sinuses are clear. The ethmoid air cells are clear. The nasal bones and bony nasal septum are nonacute. The frontal sinuses are clear. The maxillary sinuses are clear. The ostiomeatal units appear normal. The maxillary sinus ostia are patent bilaterally. No bony destruction, ostial obstruction, or air-fluid levels. No significant membrane thickening. IMPRESSION: Unremarkable CT sinuses. Dictated by: Dictated on workstation # [id number]
== END ==
LOC: RAD FS 13:37
PROVIDERS: ATTEND Nurse Practitioner Family
DX: J34.89 Other specified disorders of nose and nasal sinuses (principal)
CPT/HCPCS: 70486

== ENCOUNTER 2021-04-03 18:48 | Emergency (ER) | payer MEDICARE ==
[~2021-04-03] VITALS: Ht 157.4 cm; Wt 91.6 kg
[2021-04-03 18:52] VITALS: BP 163/95
--- OUTSIDE RECORDS SUMMARY | 2021-04-03 18:52 | XMS REPORT ---
Author Author [facility] Organization [facility] Address Unknown Phone Unavailable Care Team Providers Care Thread Roller Name Role Phone James Rina Unavailable PROBLEMS ALLERGIES ENCOUNTERS from 1981 to 2021-04-01 IMMUNIZATIONS No Information SOCIAL HISTORY REASON FOR REFERRAL No Information VITAL SIGNS MEDICATIONS PROCEDURES No Information RESULTS REASON FOR VISIT MEDICAL (GENERAL) HISTORY Goals Section Health Concerns MEDICAL EQUIPMENT No Information MENTAL STATUS FUNCTIONAL STATUS ASSESSMENTS PLAN OF TREATMENT Insurance Providers
--- OUTSIDE RECORDS SUMMARY | 2021-04-03 18:52 | XMS REPORT ---
Author Author [facility] Organization [facility] Address Unknown Phone Unavailable Care Team Providers Care Excel Developer Name Role Phone Rina Ramirez Unavailable PROBLEMS Type Condition ICD9-CM Code END49-LK Code Onset Dates Condition S tatus W/U Status Risk SNOMED Code Notes Problem Unspecified asthma, uncomplicated J45.909 Active confirmed 43015224 Problem Major depressive disorder, single episode, unspecified F32.9 Active confirmed 50570420 Problem Insomnia, unspecified G47.00 Active confirmed 824949557 Problem Encounter for gynecological examination (general) (routine) without abnormal findings Z01.419 Active confirmed 335617787052 104 Problem Fibromyalgia M79.7 Active confirmed 5314977 05 Problem Herpesviral infection of urogenital system, 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 Active confirmed 06480616 Problem Mixed hyperlipidemia E78.2 Active confirmed 520043121 Problem Encounter for screening for infections with a predominantly sexual mode of transmission Z11.3 Active confirmed 1419270 Problem Encounter for initial prescription of injectable contraceptive Z30.013 Active confirmed 648546844 Problem Encounter for other screening for malignant neoplasm o f breast Z12.39 Active confirmed 453093166 ALLERGIES Allergen (clinical drug ingredient) Drug/Non Drug Allergy do cumented on EMR Reaction Allergy Type Onset Date Status Haldol anaphylaxis Drug Allergy Active penicillamine Penicillamine([facility] Code:[address]-17) Rash Drug A llergy Active ENCOUNTERS from 1981 to 2021-04-01 Encounter Location Date Provider Diagnosis [id number] [address] Jan, Rina Ramirez IMMUNIZATIONS No Information SOCIAL HISTORY Tobacco Use: Social History Observation Description Date Details (start date - stop date) Current Smoker Sex Assigned At : Social History Observation Description Sex Assigned At Unknown Alcohol Question Answer Notes How often did you have a drink containing alcohol in the pas t year? No Points 0 Interpretation Negative Smoking Status Question Answer Notes Are you a: current smoker Are you interested in quitting? Not ready to quit How many cigarettes a day do you smoke? 11-20 How soon after you wake up do you smoke your first cigarette ? 6-30 min How often do you smoking Cigarettes? every day REASON FOR REFERRAL No Information VITAL SIGNS No information MEDICATIONS Medication SIG (Take, Route, Frequency, Duration) Notes Start Da te End Date Status [place] Oil Stimulant Laxative 100 % Orally Active Xanax 0.25 MG 1 tablet Orally as needed (prn) Active Clotrimazole 1 % 1 application to affected area Externally Twice a da y Active Loperamide HCl 2 MG 1 capsule as needed Orally as needed (prn) Active Ibuprofen 800 MG 1 tablet with food or milk as needed Ora lly Three times a day Active Aspercreme 10 % Externally Active Vitamin B Complex-C 1000 mg Orally Active Bismuth 262 MG 2 tablets as needed Orally 8 time(s) a day Active Magnesium 250 MG 1 tablet with a meal Orally once every night Active Zofran ODT 8 MG 1 tablet on the tongue and a llow to dissolve Orally Twice a day for 30 day(s) Jan, Active Simvastatin 40 MG 1 tablet in the evening Orally Once a day for 90 da ys Active Citalopram Hydrobromide 40 mg 2 tablet Orally once every night Active Flonase 50 MCG/ACT 1 spray in each nostril Nasally Once a day Active trazadone 100 mg 2 tablet p.o. once every night Active One Daily For Women - Orally Act neil Vitamin C 1000 MG 1 tablet Orally Once a day Active Metronidazole 500 MG 1 tablet Orally Twice a day for 7 days Active Stool Softener 100 MG 1 capsule as needed Orally Once a day Active diphenhydrAMINE HCl 25 MG 2 capsule as needed Orally as needed (prn) Active Turmeric Curcumin 500 MG Orally Active PROCEDURES No Information RESULTS No Results REASON FOR VISIT labs MEDICAL (GENERAL) HISTORY Type Description Date Medical History fibromyalgia Medical History PCOS Medical History hyperlipidemia Medical History asthma Medical History bipolar Medical History post-traumatic stress disorder Medical History Anxiety disorder Surgical History Tumor Right brest 2012 Surgical History Right Patella 2011 Surgical History Cyst removed on right breast 2003 Surgical History cholecystectomy 2009 Hospitalization History Reaction to haldol X 1 day. 2009 Goals Section No Information Health Concerns No Information MEDICAL EQUIPMENT No Information MENTAL STATUS No Information FUNCTIONAL STATUS No Information ASSESSMENTS No Information PLAN OF TREATMENT No Information Insurance Providers Payer Name Payer Address Payer Phone Insured Name Patient Relati onship to Insured Coverage Start Date Coverage End Date Subscriber Number Group Nu mber M Medicare [address] Claims [place] [phone] Mar Meza self [id number]
--- OUTSIDE RECORDS SUMMARY | 2021-04-03 18:52 | XMS REPORT | Clinical Summary ---
Author Author [facility] Address Unknown Phone Unavailable Care Team Providers Care Membership Correspondent Name Role Phone Elias Amaya MD Unavailable [facility] P[facility] [phone] Allergies Comments Active Allergy Reactions Severity Noted Date Throat swelling Haloperidol Swelling 10/31/2013 Latex Rash Low 10/31/2013 Penicillins Swelling 10/31/2013 Medications End Date Status Medication Sig Dispensed Refills Start Date Active citalopram (CELEXA) 40 MG Take 80 mg by 0 tablet mouth daily. Active simvastatin (ZOCOR) 40 MG Take 40 mg by 0 tablet mouth nightly. Active fluticasone (FLONASE) 50 1 spray by 0 MCG/ACT nasal spray Each Nare route daily. Active furosemide (LASIX) 20 MG Take 20 mg by 0 tabletIndications: Edema mouth as needed. Indications: Edema Active potassium chloride SA Take 20 mEq 0 (K-DUR,KLOR-CON) 20 MEQ by mouth as tablet needed (As needed when taking Lasix). Active traMADol (ULTRAM) 50 MG Take 50 mg by 0 tablet mouth every 6 (six) hours as needed for Pain. Active melatonin 5 MG TABS Take 5 mg by 0 mouth nightly. Active traZODone (DESYREL) 100 Take 200 mg 0 MG tablet by mouth nightly. Active metFORMIN (GLUCOPHAGE) Take 500 mg 0 500 MG tablet by mouth 2 (two) times daily with meals. Active progesterone (PROMETRIUM) Take 200 mg 0 100 MG capsule by mouth daily. Active thiothixene (NAVANE) 2 MG Take 4 mg by 0 capsule mouth nightly. Active MAGNESIUM CITRATE PO Take 2 0 tablets by mouth nightly. Active B Complex-C (SUPER B Take 1 tablet 0 COMPLEX PO) by mouth nightly. Active Multiple Take 2 0 Vitamins-Minerals tablets by (MULTIPLE VITAMINS/WOMENS mouth PO) nightly. Active Ascorbic Acid (VITAMIN C) Take 1,000 mg 0 1000 MG tablet by mouth nightly. Active cyclobenzaprine Take 10 mg by 0 (FLEXERIL) 10 MG tablet mouth daily as needed for Muscle spasms. 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 Resolved Problems Problem Noted Date Resolved Date Depressed 10/31/2013 01/30/2014 Immunizations Name Administration Dates Next Due INFLUENZA IIV4 PF 01/15/2018 (FLULAVAL,FLUZONE,FLUARIX ,AFLURIA QUAD) Family History Medical History Relation Name Comments No Known Problems Brother Rheum arthritis Father Diabetes Maternal Grandmother Other Mother Rheum arthritis Mother Relation Name Status Comments Brother Alive Father Alive Maternal Grandmother Mother Alive Social History Date Tobacco Use Types Packs/Day Years Used Current Every Day Smoker 1 Smokeless Tobacco: Never Used Tobacco Cessation: Ready to Quit: No; Co unseling Given: Yes Comments Alcohol Use Standard Drinks/Week occasionally every few months Yes 0 (1 standard drink = 0.6 o z pure alcohol) Alcohol Habits Answer Date Recorded How often do you have a drink containing alcohol? No t asked How many drinks containing alcohol do you have on No t asked a typical day when you are drinking? How often do you have six or more drinks on one Not asked occasion? Comment: occasionally every few months 11/01/19 14 [employer] Comments Sexually Active None Yes Sex Assigned at Date Recorded Not on file Last Filed Vital Signs Reading Time Taken Comments Vital Sign 138/84 01/15/2018 12:30 PM CDT Blood Pressure 94 01/15/2018 12:30 PM CDT Pulse 37.2 C (98.9 F) 01/15/2018 12:30 PM CDT Temperature 16 01/15/2018 12:30 PM CDT Respiratory Rate 97% 01/15/2018 12:30 PM CDT Oxygen Saturation - - Inhaled Oxygen Concentration 84.8 kg (187 lb) 01/15/2018 12:30 PM CDT Weight 160 cm (5' 3") 01/15/2018 12:30 PM CDT Height 33.13 01/15/2018 12:30 PM CDT Body Mass Index Plan of Treatment Health Maintenance Due Date Last Done Comments Varicella Vaccines (1 of 1982 2 - 2-dose childhood series) Annual Wellness Visit 12/11/1999 Hepatitis C Screening 12/11/1999 DTaP,Tdap,and Td Vaccines 2000 (1 - Tdap) MMR Vaccines-Adult 2000 Cervical Cancer Screening 2002 Influenza Vaccine (#1) 2020 01/15/2018 Pneumo-Vaccine: 65+Yrs (1 2046 of 1 - PPSV23) COVID-19 Vaccine Completed 09/04/2020, 08/06/2020 HIB Vaccines Aged Out No longer eligible based on patient's age to complete this topic IPV Vaccines Aged Out No longer eligible based on patient's age to complete this topic Meningococcal Vaccine Aged Out No longer eligib le based on patient's age to complete this topic Pneumo-Vaccine: Peds (0-5 Aged Out No longer el igible based on patient's age to Yrs) & At-Risk Patients complete this topic (6-64 Yrs) Rotavirus Vaccines Aged Out No longer eligible based on patient's age to complete this topic Results Not on filefrom Last 3 Months Insurance Type Payer Benefit Subscriber ID Effective Phone Address Plan / Dates Group Medicare MEDICARE MEDICARE [id number] 2011-P [address] [place] [address] Advance Directives For more information, please contact: [phone] Patient Clinic Lpn Explanation Type Date Recorded Advance Directives and Living Will Power of Publicity Director Care Teams Start Date End Date Membership Correspondent Relationship Specialty 01/09/18 [facility] PCP - General Clinic [address] [place] [address] 10/08/13 Elias Amaya MD Rheumatology [address] [place] [address] [email or web address]
--- NOTE | 2021-04-03 19:13 | ED Head Injury ---
General Chief Complaint: Laceration Stated Complaint: HIT HEAD Nursing Triage Note: Patient states that she was pushing her cart into a cart return and hit her head. Patient has a small superficial abrasion on the left top of her head. Minimal bleeding noted. Patient denies being knocked out. Source: patient Exam Limitations: no limitations History of Present Illness Date Seen by Provider: Apr 03, 2021 Time Seen by Provider: 18:50 Initial Comments 40yoF with no significant PMH coming in after she hit her head about an hour ago. Was putting a cart away at [facility] when she stood up and hit the back of her head on some concrete. Did not pass out and remembers all events. Having a mild headache that is aching. She later noted that she believes she just got over the flu and had fever, nausea, and vomiting on Tuesday. COVID test negative on Tuesday. Generally has been feeling better in regards to these symptoms. Tetanus is up-to-date within the past 10 years. Allergies and Home Medications Allergies Coded Allergies: Penicillins (Verified Allergy, Unknown, 10/16/09) haloperidol (Verified Allergy, Unknown, 07/17/18) latex (Unverified Allergy, Unknown, 07/17/18) Patient Home Medication List Home Medication List Reviewed: Yes Albuterol (Proventil Inh) 17 Gm Aerosol, 1 GM IH UD, (Reported) Entered as Reported by: LINA ANDERSON on 03/13/10 1328 Citalopram Hydrobromide (Celexa) 40 Mg Tablet, 2 EACH PO DAILY, (Reported) Entered as Reported by: YURIDIA WALDROP on 10/15/09 2348 Doxycycline Monohydrate (Doxycycline Monohydrate Tabs) 100 Mg Tablet, 100 MG PO BID Prescribed by: SOPHIA BAER on 03/13/10 1435 Ondansetron (Ondansetron Odt) 4 Mg Tab.rapdis, 4 MG PO Q6H PRN for NAUSEA/VOMITING-1ST LINE Prescribed by: MYA LINDSEY on 04/03/211926 Prednisone (Prednisone) 20 Mg Tab, 40 MG PO DAILY Prescribed by: SOPHIA BAER on 03/13/10 1435 Simvastatin (Zocor) 40 Mg Tablet, 40 MG PO DAILY, (Reported) Entered as Reported by: LINA ANDERSON on 03/13/101327 Thiothixene (Navane) 20 Mg Capsule, 20 MG PO DAILY, (Reported) Entered as Reported by: LINA Milagros JUSTIN on 03/13/101327 [Trazadone] , 200 MG PO HS, (Reported) Entered as Reported by: LINA Linares JUSTIN on 03/13/101327 Review of Systems Review of Systems Constitutional: No chills, No fever Eyes: Denies Blurred Vision Ears, Nose, Mouth, Throat: no symptoms reported Respiratory: no symptoms reported Cardiovascular: no symptoms reported Gastrointestinal: no symptoms reported Musculoskeletal: no symptoms reported Skin: no symptoms reported Psychiatric/Neurological: Headache Endocrine: No Symptoms Reported Hematologic/Lymphatic: No Symptoms Reported All Other Systems Reviewed Negative Unless Noted: Yes Past Bypozph-Qdfbqm-Vzfhsi Hx Patient Social History Tobacco Use?: Yes Tobacco type used: Cigarettes Smoking Status: Current Everyday Smoker Substance use?: No Additional substance use comme: Patient previously used methamphetamine IV. Clean 3 years. 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: Moderna Seasonal Allergies Seasonal Allergies: No Past Medical History Surgeries: Yes Gallbladder Respiratory: No Cardiac: No Neurological: No Reproductive Disorders: Yes (bi-corniated uterus) Genitourinary: No Gastrointestinal: No Musculoskeletal: Yes Fibromyalgia Endocrine: No HEENT: No Cancer: No Psychosocial: Yes Anxiety, Depression Integumentary: No Blood Disorders: No Physical Exam Vital Signs Vital Signs - First Documented 04/03/21 18:52 Temp 36.4 Pulse 111 Resp 18 B/P (MAP) 163/95 (117) Pulse Ox 98 O2 Delivery Room Air Capillary Refill : Less Than 3 Seconds Height, Weight, BMI Height: 5'3.00" Weight: 200lbs. oz. 90.584236rq; 36.00 BMI Method:Stated General Appearance: WD/WN, no apparent distress HEENT: PERRL/EOMI, normal ENT inspection, pharynx normal, other (Small abrasion to the back of her head) Neck: non-tender, full range of motion, supple, normal inspection Cardiovascular: regular rate, rhythm, no edema, no murmur Respiratory: chest non-tender, lungs clear, normal breath sounds, no respiratory distress, no accessory muscle use Gastrointestinal: normal bowel sounds, non tender, soft; No distended, No guarding Back: normal inspection, no CVA tenderness, no vertebral tenderness Extremities: normal range of motion, non-tender, normal inspection, no pedal edema, no calf tenderness Psychiatric: alert, oriented x 3 Crainal Nerves: normal hearing, normal speech, PERRL Coordination/Gait: normal finger to nose, normal gait Motor/Sensory: no motor deficit, no sensory deficit Skin: normal color, warm/dry Lymphatic: no adenopathy Boyce Coma Score Best Eye Response: (4) Open Spontaneously Best Verbal Response: (5) Oriented Best Motor Response: (6) Obeys Commands Progress/Results/Core Measures Results/Orders My Orders Orders - MYA LINDSEY MD Ondansetron Oral Dissolve Tab (Zofran (04/03/21 19:27) Vital Signs/I&O 04/03/21 18:52 Temp 36.4 Pulse 111 Resp 18 B/P (MAP) 163/95 (117) Pulse Ox 98 O2 Delivery Room Air Blood Pressure Mean: 117 Progress Progress Note : Progress Note 40-year-old female with above history coming in after she hit her head. ABCs were intact, vital stable, GCS 15 on presentation. Secondary survey with a small abrasion to the left posterior aspect of her head that is hemostatic. We cleaned the wound and applied antibiotic ointment. Give her Zofran for nausea as well as a prescription. Clinically she has a concussion and is [place] head and cervical spine rule negative. She is otherwise well-appearing. In regards to her recent infection, it sounds like she is at the end of it and is tolerating p.o. I believe she is stable for discharge with outpatient follow- up. She was sent home with strict return precautions. Departure Impression Primary Impression: Concussion Qualified Codes: S06.0X0A - Concussion without loss of consciousness, initial encounter Disposition: 01 HOME, SELF-CARE Condition: Stable Departure-Patient Inst. Decision time for Depature: 19:25 Referrals: [facility] (PCP) Primary Care Physician JUAN C ROSALES APRN (Family) Primary Care Physician Patient Instructions: Concussion, Adult (DC) Add. Discharge Instructions: You were seen in the emergency department after you hit your head and have a cut on it. Fortunately you do not need stitches. Just keep it clean like you normally would with anything. With a concussion you will have headache, difficulty concentrating, nausea at times. This likely gets better within the next couple of weeks, but if it does not then please schedule an appointment with your regular doctor. Scripts Ondansetron (Ondansetron Odt) 4 Mg Tab.rapdis 4 MG PO Q6H PRN for NAUSEA/VOMITING-1ST LINE for 7 Days, #28 TAB Prov: MYA LINDSEY MD 04/03/21 MYA LINDSEY MD Apr 03, 2021 19:13
[2021-04-03] MEDS ORDERED: ONDA4TAB11 PO (19:27)
[2021-04-03] MEDS ORDERED: ONDANSETRON 4 MG (ZOFRAN) ORAL DISSOLVE TAB PO STA (19:27)
== END 2021-04-03 19:31 | disposition home or self-care (01) ==
LOC: EDUNIT# 18:48 → ER FS 18:49
DX: S06.0X0A Concussion without loss of consciousness, initial encounter (principal); S00.81XA Abrasion of other part of head, initial encounter; F41.9 Anxiety disorder, unspecified; F32.9 Major depressive disorder, single episode, unspecified; M79.7 Fibromyalgia; F17.210 Nicotine dependence, cigarettes, uncomplicated; Z88.0 Allergy status to penicillin; Z88.8 Allergy status to other drugs, medicaments and biological substances; Z79.899 Other long term (current) drug therapy; W22.8XXA Striking against or struck by other objects, initial encounter
CPT/HCPCS: 99283

== ENCOUNTER 2021-04-05 10:50 | Emergency (ER) | payer MEDICARE ==
[~2021-04-05] VITALS: Ht 157 cm; Wt 90.0 kg
[~2021-04-05 10:50] MED LIST changes: +ONDA4TAB11 PO
[2021-04-05] MEDS ORDERED: NS IV 1000 ML 1,000 ML ONE (10:56)
[2021-04-05] MEDS ORDERED: KETOROLAC 30 MG/ML VIAL IVP ONE (11:00)
[2021-04-05] MEDS ORDERED: PROCHLORPERAZINE 10 MG/2ML INJ (COMPAZINE) IV ONE (11:00)
[2021-04-05] MEDS ORDERED: diphenhydrAMINE 50 MG/ML INJ (BENADRYL) IVP ONE (11:00)
--- NOTE | 2021-04-05 11:04 | ED Headache ---
General Chief Complaint: Laceration Stated Complaint: HEAD INJ Source: patient, EMS Exam Limitations: no limitations History of Present Illness Date Seen by Provider: Apr 05, 2021 Time Seen by Provider: 10:51 Initial Comments 40-year-old female known to me coming in via EMS for repeat assessment. She hit her head on Tuesday at [facility] on 2 some concrete and was diagnosed with a concussion. She says her headaches have been continuous, moderate, throbbing in the back of her head. She says she is not having difficulty sleeping despite taking her home trazodone. Feels like she is having difficulty eating due to nausea as well. She is otherwise denying any chest pain, shortness of breath, abdominal pain, vomiting, diarrhea, focal weakness or numbness, or any other concerns Allergies and Home Medications Allergies Coded Allergies: Penicillins (Verified Allergy, Unknown, 10/16/09) haloperidol (Verified Allergy, Unknown, 07/17/18) latex (Unverified Allergy, Unknown, 07/17/18) Patient Home Medication List Home Medication List Reviewed: Yes Albuterol (Proventil Inh) 17 Gm Aerosol, 1 GM IH UD, (Reported) Entered as Reported by: LINA ANDERSON on 03/13/10 1328 Citalopram Hydrobromide (Celexa) 40 Mg Tablet, 2 EACH PO DAILY, (Reported) Entered as Reported by: YURIDIA WALDROP on 10/15/09 2348 Doxycycline Monohydrate (Doxycycline Monohydrate Tabs) 100 Mg Tablet, 100 MG PO BID Prescribed by: SOPHIA BAER on 03/13/10 1435 Ondansetron (Ondansetron Odt) 4 Mg Tab.rapdis, 4 MG PO Q6H PRN for NAUSEA/VOMITING-1ST LINE Prescribed by: MYA LINDSEY on 04/03/211926 Prednisone (Prednisone) 20 Mg Tab, 40 MG PO DAILY Prescribed by: SOPHIA BAER on 03/13/10 1435 Simvastatin (Zocor) 40 Mg Tablet, 40 MG PO DAILY, (Reported) Entered as Reported by: LINA ANDERSON on 03/13/10 1328 Thiothixene (Navane) 20 Mg Capsule, 20 MG PO DAILY, (Reported) Entered as Reported by: LINA ANDERSON on 03/13/10 1328 [Trazadone] , 200 MG PO HS, (Reported) Entered as Reported by: LINA ANDERSON on 03/13/101327 Review of Systems Review of Systems Constitutional: No chills, No fever Eyes: Denies Blurred Vision Ears, Nose, Mouth, Throat: denies epistaxis Respiratory: No cough Cardiovascular: No chest pain Gastrointestinal: No abdominal pain Genitourinary: no symptoms reported Musculoskeletal: no symptoms reported Skin: no symptoms reported Psychiatric/Neurological: No Symptoms Reported All Other Systems Reviewed Negative Unless Noted: Yes Past Xofrfox-Hnfzcb-Mkkxdc Hx Patient Social History Tobacco Use?: No Use of E-Cig and/or Vaping dev: No Substance use?: No Alcohol Use?: No Pt feels they are or have been: No Seasonal Allergies Seasonal Allergies: No Past Medical History Surgeries: Yes Gallbladder Respiratory: No Cardiac: No Neurological: No Reproductive Disorders: Yes (bi-corniated uterus) Genitourinary: No Gastrointestinal: No Musculoskeletal: Yes Fibromyalgia Endocrine: No HEENT: No Cancer: No Psychosocial: Yes Anxiety, Depression Integumentary: No Blood Disorders: No Physical Exam Vital Signs Vital Signs - First Documented 04/05/21 10:50 Temp 36.1 Pulse 114 Resp 20 B/P (MAP) 164/85 (111) Pulse Ox 97 O2 Delivery Room Air Capillary Refill : Height, Weight, BMI Height: 5'3.00" Weight: 200lbs. oz. [id number]; 36.00 BMI Method:Stated General Appearance: WD/WN, no apparent distress HEENT: PERRL/EOMI, normal ENT inspection, pharynx normal Neck: non-tender, full range of motion, supple, normal inspection Cardiovascular: regular rate, rhythm, no edema, no murmur Respiratory: chest non-tender, lungs clear, normal breath sounds, no respiratory distress, no accessory muscle use Gastrointestinal: normal bowel sounds, non tender, soft; No distended, No guarding, No rebound Back: normal inspection, no CVA tenderness, no vertebral tenderness Extremities: normal range of motion, non-tender, normal inspection, no pedal edema, no calf tenderness, normal capillary refill Psychiatric: alert, oriented x 3, other (tearful) Crainal Nerves: normal hearing, normal speech, PERRL Coordination/Gait: normal finger to nose, normal gait Motor/Sensory: no motor deficit, no sensory deficit Skin: normal color, warm/dry Lymphatic: no adenopathy Progress/Results/Core Measures Results/Orders My Orders Orders - MYA LINDSEY MD Iv 1000 Ml (Sodium Chloride 0.9%) (04/05/21 10:56) Ed Iv/Invasive Line Start (04/05/21 11:00) Ct Head Wo (04/05/21 11:00) Prochlorperazine Injection (Compazine In (04/05/21 11:00) Diphenhydramine Injection (Benadryl Inje (04/05/21 11:00) Ketorolac Injection (Toradol Injection) (04/05/21 11:00) Ns Iv 1000 Ml (Sodium Chloride 0.9%) (04/05/21 11:15) Medications Given in ED Current Medications Medications Dose Ordered Sig/Falco Route Start Time Stop Time Status Last Admin Dose Admin Diphenhydramine HCl 25 mg ONCE ONCE IVP 04/05/21 11:00 04/05/21 11:02 DC 04/05/21 11:06 25 MG Ketorolac Tromethamine 15 mg ONCE ONCE IVP 04/05/21 11:00 04/05/21 11:02 DC 04/05/21 11:06 15 MG Prochlorperazine Edisylate 10 mg ONCE ONCE IV 04/05/21 11:00 04/05/21 11:02 DC 04/05/21 11:06 10 MG Vital Signs/I&O 04/05/21 10:50 Temp 36.1 Pulse 114 Resp 20 B/P (MAP) 164/85 (111) Pulse Ox 97 O2 Delivery Room Air Progress Progress Note : Progress Note 40-year-old female with above history coming in with a headache recently diagnosed with concussion. ABCs were intact, vital stable, GCS 15 on presentation. Physical exam with the small abrasion to her left posterior head healing well with no signs of infection. Neuro exam is normal. Given the persistent symptoms, an IV was placed and she was given a bolus of IV fluids as well as Compazine, Benadryl, Toradol for pain control. She has had a hysterectomy and is not . Symptoms did improve. CT head negative for any acute abnormalities. I believe the patient is stable for discharge with outpatient follow-up. She was sent home with strict return precautions. Diagnostic Imaging Diagonstic Imaging: CT (head) Comments [facility], [place] NAME: LAMAR RUBIN [facility] REC#: [id number] PT STATUS: REG ER : 1980 PHYSICIAN: MYA LINDSEY MD ADMIT DATE: 04/05/21/ER FS Draft Date of Exam:04/05/21 CT HEAD WO PROCEDURE: CT head without contrast. TECHNIQUE: Multiple contiguous axial images were obtained through the brain without the use of intravenous contrast. Auto Exposure Controls were utilized during the CT exam to meet ALARA standards for radiation dose reduction. INDICATION: Altered mental status. FINDINGS: There is no mass, shift of the midline, or hemorrhage to suggest an acute intracranial abnormality. The ventricles are not abnormally dilated and stable in size when compared to the prior exam of 01/25/2010. The bone windows are unremarkable for a fracture or for a destructive lesion. The orbits are symmetrical and within normal limits. The sinuses are generally clear. IMPRESSION: 1. There is no evidence for an acute intracranial abnormality. 2. If clinical concern regarding an underlying abnormality persists, then MRI would be recommended for further study. Dictated on workstation # [id number] Dict: 04/05/21 1137 Trans: 04/05/21 1144 [id number] Interpreted by: EDIN HOOPER MD Electronically signed by: Departure Impression Primary Impression: Postconcussion syndrome Disposition: 01 HOME, SELF-CARE Condition: Stable Departure-Patient Inst. Decision time for Depature: 11:50 Referrals: [facility] [place] (PCP) Primary Care Physician JUAN C ROSALES APRN (Family) Primary Care Physician Patient Instructions: Postconcussion Syndrome Add. Discharge Instructions: Please follow-up with your regular doctor within the next week or so if you continue to have symptoms. The concussion specialist are neurologist, and you may need to see 1 in the future if your symptoms continue to progress. I recommend drinking plenty of fluids, taking ibuprofen or Tylenol for headaches, and trying to get rest. Work/School Note: Work Release Form Date Seen in the Emergency Department: Apr 05, 2021 Return to Work: Apr 07, 2021 Restrictions: No Restrictions MYA LINDSEY MD Apr 05, 2021 11:04
[2021-04-05] MEDS ORDERED: NS IV 1000 ML 1,000 ML IV SCH (11:15)
--- NOTE | 2021-04-05 11:44 | Diagnostic Imaging Report ---
PROCEDURE: CT head without contrast. TECHNIQUE: Multiple contiguous axial images were obtained through the brain without the use of intravenous contrast. Auto Exposure Controls were utilized during the CT exam to meet ALARA standards for radiation dose reduction. INDICATION: Altered mental status. FINDINGS: There is no mass, shift of the midline, or hemorrhage to suggest an acute intracranial abnormality. The ventricles are not abnormally dilated and stable in size when compared to the prior exam of 01/25/2010. The bone windows are unremarkable for a fracture or for a destructive lesion. The orbits are symmetrical and within normal limits. The sinuses are generally clear. IMPRESSION: 1. There is no evidence for an acute intracranial abnormality. 2. If clinical concern regarding an underlying abnormality persists, then MRI would be recommended for further study. Dictated by: Dictated on workstation # [id number]
[2021-04-05 11:49] VITALS: BP 122/68
== END 2021-04-05 11:53 | disposition home or self-care (01) ==
LOC: EDUNIT# 10:50 → ER FS 10:51
DX: F07.81 Postconcussional syndrome (principal); F41.9 Anxiety disorder, unspecified; F32.9 Major depressive disorder, single episode, unspecified; Z91.040 Latex allergy status; Z79.899 Other long term (current) drug therapy
CPT/HCPCS: 70450

== ENCOUNTER 2022-05-15 22:15 | Emergency (ER) | payer MEDICARE ==
[~2022-05-15] VITALS: Ht 154.9 cm; Wt 77.5 kg
[2022-05-15] MEDS ORDERED: NS IV 1000 ML 1,000 ML IV STA (22:28)
--- NOTE | 2022-05-15 22:28 | ED Cough/URI ---
General Stated Complaint: COUGH/DIZZINESS Source: patient History of Present Illness Date Seen by Provider: May 15, 2022 Time Seen by Provider: 22:18 Initial Comments 41-year-old female presenting with complaints of feeling short of breath and coughing as well as feeling dizzy in the last few hours. She states that she has been around her neighbor who has pneumonia and strep throat. She denies having a sore throat but has been coughing and feeling dizzy. She denies having chest pain, nausea, vomiting, diarrhea, pain with urination. She has had a hysterectomy in the past. She does smoke cigarettes. She denies having fever or chills. Timing/Duration: this afternoon Severity/Quality: moderate, dry cough Prior Episodes/Possible Cause: no prior episodes Modifying Factors: Worse With Activity, Worse With Coughing Associated Symptoms: cough, dizziness, lightheadedness, nasal congestion, shortness of breath Allergies and Home Medications Allergies Coded Allergies: Penicillins (Verified Allergy, Unknown, 10/16/09) haloperidol (Verified Allergy, Unknown, 07/17/18) latex (Unverified Allergy, Unknown, 07/17/18) Patient Home Medication List Home Medication List Reviewed: Yes Albuterol (Proventil Inh) 17 Gm Aerosol, 1 GM IH UD, (Reported) Entered as Reported by: LINA ANDERSON on 03/13/10 1328 Albuterol Sulfate (Proventil Hfa) 6.7 Gm Hfa.aer.ad, 2 PUFF INH Q6H PRN for COUGH Prescribed by: JACOB JOEL on 05/15/22 2342 Citalopram Hydrobromide (Celexa) 40 Mg Tablet, 2 EACH PO DAILY, (Reported) Entered as Reported by: YURIDIA WALDROP on 10/15/09 2348 Doxycycline Monohydrate (Doxycycline Monohydrate Tabs) 100 Mg Tablet, 100 MG PO BID Prescribed by: SOPHIA BAER on 03/13/10 1435 Ondansetron (Ondansetron Odt) 4 Mg Tab.rapdis, 4 MG PO Q6H PRN for NAUSEA/VOMITING-1ST LINE Prescribed by: YMA LINDSEY on 04/03/21 192 Prednisone (Prednisone) 20 Mg Tab, 40 MG PO DAILY Prescribed by: SOPHIA BAER on 03/13/10 1435 Prednisone (Prednisone) 20 Mg Tab, 20 MG PO DAILY Prescribed by: JACOB JOEL on 05/15/22 2342 Simvastatin (Zocor) 40 Mg Tablet, 40 MG PO DAILY, (Reported) Entered as Reported by: LINA ANDERSON on 03/13/10 1328 Thiothixene (Navane) 20 Mg Capsule, 20 MG PO DAILY, (Reported) Entered as Reported by: LINA ANDERSON on 03/13/10 132 [Trazadone] , 200 MG PO HS, (Reported) Entered as Reported by: LINA ANDERSON on 03/13/101327 Review of Systems Review of Systems Constitutional: No chills, No fever EENTM: see HPI Respiratory: see HPI Cardiovascular: No chest pain Gastrointestinal: No nausea, No vomiting Genitourinary: No dysuria Musculoskeletal: no symptoms reported Skin: No rash Psychiatric/Neurological: No Symptoms Reported Past Stygypu-Qpdwlk-Ulidgv Hx Patient Social History Tobacco Use?: Yes Tobacco type used: Cigarettes Smoking Status: Current Everyday Smoker Seasonal Allergies Seasonal Allergies: No Past Medical History Surgery/Hospitalization HX: Hypertension, Hysterectomy, Cholecystectomy Surgeries: Yes Gallbladder, Hysterectomy Respiratory: No Cardiac: Yes Hypertension Neurological: No Reproductive Disorders: Yes (bi-corniated uterus) Genitourinary: No Gastrointestinal: No Musculoskeletal: Yes Fibromyalgia Endocrine: No HEENT: No Cancer: No Psychosocial: Yes Anxiety, Depression Integumentary: No Blood Disorders: No Physical Exam Vital Signs - First Documented 05/15/22 22:19 Temp 37.0 Pulse 120 Resp 18 B/P (MAP) 139/73 (95) Pulse Ox 97 O2 Delivery Room Air Capillary Refill : Height: 5'3.00" Weight: 200lbs. oz. 90.211472dz; 36.00 BMI Method:Stated General Appearance: WD/WN, no apparent distress HEENT: PERRL/EOMI, pharynx normal; No TM abnormal (R) (dull with effusion), No TM abnormal (L) (dull with effusion) Neck: non-tender, full range of motion, supple, normal inspection Respiratory: chest non-tender, no respiratory distress, no accessory muscle use, decreased breath sounds Cardiovascular: normal peripheral pulses, tachycardia Gastrointestinal: normal bowel sounds, non tender, soft, no pulsatile mass Extremities: normal range of motion, non-tender, normal capillary refill Neurologic/Psychiatric: alert, oriented x 3 Skin: normal color, warm/dry Progress/Results/Core Measures Suspected Sepsis SIRS Temperature: Pulse: Respiratory Rate: Laboratory Tests 05/15/22 22:27: White Blood Count 9.3 Blood Pressure / Mean: Laboratory Tests 05/15/22 22:27: Creatinine 0.67, Platelet Count 296, Total Bilirubin 0.4 Results/Orders Lab Results Laboratory Tests Test 05/15/22 22:27 05/15/22 22:31 Range/Units White Blood Count 9.3 4.3-11.0 10^3/uL Red Blood Count 4.76 3.80-5.11 10^6/uL Hemoglobin 14.8 11.5-16.0 g/dL Hematocrit 42 35-52 % Mean Corpuscular Volume 88 80-99 fL Mean Corpuscular Hemoglobin 31 25-34 pg Mean Corpuscular Hemoglobin Concent 35 32-36 g/dL Red Cell Distribution Width 12.4 10.0-14.5 % Platelet Count 296 130-400 10^3/uL Mean Platelet Volume 9.2 9.0-12.2 fL Immature Granulocyte % (Auto) 0 % Neutrophils (%) (Auto) 42 42-75 % Lymphocytes (%) (Auto) 48 H 12-44 % Monocytes (%) (Auto) 5 0-12 % Eosinophils (%) (Auto) 5 0-10 % Basophils (%) (Auto) 1 0-10 % Neutrophils # (Auto) 3.9 1.8-7.8 10^3/uL Lymphocytes # (Auto) 4.5 H 1.0-4.0 10^3/uL Monocytes # (Auto) 0.4 0.0-1.0 10^3/uL Eosinophils # (Auto) 0.4 H 0.0-0.3 10^3/uL Basophils # (Auto) 0.1 0.0-0.1 10^3/uL Immature Granulocyte # (Auto) 0.0 0.0-0.1 10^3/uL Sodium Level 133 L 135-145 MMOL/L Potassium Level 3.9 3.6-5.0 MMOL/L Chloride Level 99 98-107 MMOL/L Carbon Dioxide Level 23 21-32 MMOL/L Anion Gap 11 5-14 MMOL/L Blood Urea Nitrogen 25 H 7-18 MG/DL Creatinine 0.67 0.60-1.30 MG/DL Estimat Glomerular Filtration Rate 113 BUN/Creatinine Ratio 37 Glucose Level 97 70-105 MG/DL Calcium Level 9.9 8.5-10.1 MG/DL Corrected Calcium 9.5 8.5-10.1 MG/DL Total Bilirubin 0.4 0.1-1.0 MG/DL Aspartate Amino Transf (AST/SGOT) 21 5-34 U/L Alanine Aminotransferase (ALT/SGPT) 16 0-55 U/L Alkaline Phosphatase 85 40-136 U/L C-Reactive Protein < 0.30 <0.50 MG/DL Total Protein 7.4 6.4-8.2 GM/DL Albumin 4.5 3.2-4.5 GM/DL Influenza Type A (RT-PCR) Not Detected Not Detecte Influenza Type B (RT-PCR) Not Detected Not Detecte SARS-CoV-2 RNA (RT-PCR) Not Detected Not Detecte Urine Color YELLOW Urine Clarity CLEAR Urine pH 6.0 5-9 Urine Specific [place] <=1.005 1.016-1.022 Urine Protein NEGATIVE NEGATIVE Urine Glucose (UA) NEGATIVE NEGATIVE Urine Ketones NEGATIVE NEGATIVE Urine Nitrite NEGATIVE NEGATIVE Urine Bilirubin NEGATIVE NEGATIVE Urine Urobilinogen 0.2 < = 1.0 MG/DL Urine Leukocyte Esterase NEGATIVE NEGATIVE Urine RBC (Auto) NEGATIVE NEGATIVE Urine RBC 2-5 H /HPF Urine WBC 5-10 H /HPF Urine Squamous Epithelial Cells 25-50 H /HPF Urine Crystals NONE /LPF Urine Bacteria MODERATE H /HPF Urine Casts NONE /LPF Urine Mucus NEGATIVE /LPF Urine Culture Indicated NO My Orders Orders - JACOB JOEL MD Cbc With Automated Diff (05/15/22 22:) Comprehensive Metabolic Panel (05/15/22 22:) Chest 1 View Ap/Pa Only (05/15/22 22:) Albuterol/Ipra Inhalation Soln (Duoneb I (05/15/22 22:30) O2 (05/15/22:) Ed Iv/Invasive Line Start (05/15/22:) Monitor-Rhythm Ecg Trace Only (05/15/22 22:) Crp Fs (05/15/22:) Svn Small Volume Nebulizer (05/15/22:) Ua Culture If Indicated (05/15/22 22:26) Covid 19 Inhouse Test (05/15/22 22:26) Influenza A And B By Pcr (05/15/22 22:26) Ns Iv 1000 Ml (Sodium Chloride 0.9%) (05/15/22 22:28) Dexamethasone Injection (Decadron Inje (05/15/22 22:28) Nursing Communication (Order) (05/15/22 23:38) Medications Given in ED Current Medications Medications Dose Ordered Sig/Flaco Route Start Time Stop Time Status Last Admin Dose Admin Albuterol/ Ipratropium 3 ml ONCE ONCE INH 05/15/22 22:30 05/15/22 22:31 DC 05/15/22 22:41 3 ML Vital Signs/I&O 05/15/22 05/15/22 22:19 23:43 Temp 37.0 Pulse 120 111 Resp 18 16 B/P (MAP) 139/73 (95) 132/74 Pulse Ox 97 98 O2 Delivery Room Air Room Air 05/16/22 00:00 Intake Total 1000 ml Balance 1000 ml Capillary Refill : Progress Note #1: Progress Note Potential diagnosis of pneumonia, COVID, influenza, bronchitis, upper respiratory infection, dehydration. Obtain peripheral IV access and order blood work to look at complete blood count, comprehensive metabolic profile, CRP, nasal swab to check for COVID and influenza. Obtain a urinalysis to look at hydration as well as looking for infection. Chest x-ray to look for signs of pneumonia or infiltrate. Try a DuoNeb breathing treatment to help with the shortness of breath and dizziness. Dexamethasone 10 mg IV for shortness of breath and dizziness. Normal saline 1 L IV fluid bolus for hydration with her having tachycardia and feeling dizzy and lightheaded. Progress Note #2: Time: 22:54 Progress Note My personal interpretation and review of her 1 view chest x-ray shows no acute process. Urinalysis did not show dehydration as her specific gravity was less than 1.005. it was contaminated with epithelial cells but no leukocyte Estrace, nitrates or bacteria for UTI. Complete blood count had a normal white blood cell count at 9.3 to go against acute systemic infection but she had increased lymphocyte count and her differential of 48 which could indicate that she had a viral infection. Her comprehensive metabolic profile did not show signs of acute electrolyte imbalance, renal failure, hepatic failure. Her troponin was less than 0.3. This would be negative and help to rule out myocardial infarction. Her nasal swab for COVID and influenza was all negative. Progress Note #3: Progress Note When reviewing results with the patient she does admit to breathing easier and b eing less dizzy after treatment here in the ED. She reports having an inhaler at home but she does not use it very often. She feels like she has chronic allergy symptoms and drainage down the back of her throat that was making her cough. She feels like her allergies are more flared up here recently. She was reassured that her chest x-ray was not showing pneumonia and her labs did not show pneumonia or COVID or influenza. She states that steroids make her stay up at night but she was agreeable to taking them for few days to help with the drainage and cough. Advised that she could use gksa-kty-kirmlmc nasal steroid spray to try and help with her sinuses. Mucinex in addition to drinking plenty of fluids would also help with her congestion and drainage. Advised to check back through the clinic if not improving. Given a spacer to use with her inhaler that she already has at home. We will also send a prescription for a new inhaler to the pharmacy in case the one she has is more than a year old. Additional 3 days of steroid by dosing with 20 mg prednisone daily for 3 days. Diagnostic Imaging Diagonstic Imaging: Xray Plain Films/CT/US/NM/MRI: chest Reviewed: Reviewed by Me Departure Impression Primary Impression: Cough Qualified Codes: R05.1 - Acute cough Additional Impressions: Upper respiratory infection with cough and congestion Dizzy Disposition: 01 HOME, SELF-CARE Condition: Stable Departure-Patient Inst. Decision time for Depature: 23:39 Referrals: [facility] (PCP) Primary Care Physician JUAN C ROSALES APRN (Family) Primary Care Physician Patient Instructions: Cough, Adult ED, Dizziness, Adult ED, How to Use a Metered Dose Inhaler ED, How to Use a Spacer, Upper Respiratory Infection ED Add. Discharge Instructions: Stay well-hydrated and drink plenty of fluids. You could try using Mucinex over the counter to help with thinning out the congestion and drainage. Take steroid with cough and shortness of breath. Use inhaler with spacer to help with cough and shortness of breath. 2 puffs with spacer inhaled every 6 hours as needed for cough/shortness of breath. Check back with clinic if not improving or having worsening symptoms. Scripts Albuterol Sulfate (Proventil Hfa) 6.7 Gm Hfa.aer.ad 2 PUFF INH Q6H PRN for COUGH for 30 Days, #6.7 GM 0 Refills 2 puffs with spacer inhaled every 6 hours as needed for cough/shortness of breath Prov: JACOB JOEL MD 05/15/22 Prednisone (Prednisone) 20 Mg Tab 20 MG PO DAILY for Cough for 3 Days, #3 TAB 0 Refills Prov: JACOB JOEL MD 05/15/22 Work/School Note: Work Release Form Date Seen in the Emergency Department: May 15, 2022 Return to Work: May 16, 2022 Restrictions: No Restrictions JACOB JOEL MD May 15, 2022 22:28
[2022-05-15] MEDS ORDERED: RT-ALBUTEROL/IPRATROPIUM 3 ML (DUONEB) VIAL INH ONE (22:30)
[2022-05-15 22:33] LABS: BASOPHILS # (AUTO) 0.1 10^3/uL (0.0-0.1); BASOPHILS % (AUTO) 1 % (0-10); EOSINOPHILS # (AUTO) 0.4 10^3/uL (0.0-0.3); EOSINOPHILS % (AUTO) 5 % (0-10); HEMATOCRIT 42 % (35-52); HEMOGLOBIN 14.8 g/dL (11.5-16.0); LYMPHOCYTES # (AUTO) 4.5 10^3/uL (1.0-4.0); LYMPHOCYTES % (AUTO) 48 % (12-44); MEAN CORPUSCULAR HEMOGLOBIN 31 pg (25-34); MEAN CORPUSCULAR HGB CONC 35 g/dL (32-36); MEAN CORPUSCULAR VOLUME 88 fL (80-99); MEAN PLATELET VOLUME 9.2 fL (9.0-12.2); MONOCYTES # (AUTO) 0.4 10^3/uL (0.0-1.0); MONOCYTES % (AUTO) 5 % (0-12); NEUTROPHILS # (AUTO) 3.9 10^3/uL (1.8-7.8); NEUTROPHILS % (AUTO) 42 % (42-75); PLATELET COUNT 296 10^3/uL (130-400); WHITE BLOOD COUNT 9.3 10^3/uL (4.3-11.0)
[2022-05-15 22:38] LABS: BILIRUBIN,URINE NEGATIVE (NEGATIVE); CLARITY,URINE CLEAR; COLOR,URINE YELLOW; GLUCOSE, URINE (UA) NEGATIVE (NEGATIVE); KETONES,URINE NEGATIVE (NEGATIVE); LEUKOCYTE ESTERASE ,URINE NEGATIVE (NEGATIVE); NITRITE,URINE NEGATIVE (NEGATIVE); PROTEIN,URINE NEGATIVE (NEGATIVE)
[2022-05-15 22:41] LABS: BACTERIA,URINE MODERATE /HPF; SQUAMOUS EPITHELIAL CELL,UR 25-50 /HPF
[2022-05-15 22:52] LABS: ALANINE AMINOTRANSFERASE 16 U/L (0-55); ALBUMIN 4.5 GM/DL (3.2-4.5); ALKALINE PHOSPHATASE 85 U/L (40-136); BILIRUBIN,TOTAL 0.4 MG/DL (0.1-1.0); BUN/CREATININE RATIO 37; CALCIUM 9.9 MG/DL (8.5-10.1); CARBON DIOXIDE 23 MMOL/L (21-32); CHLORIDE 99 MMOL/L (98-107); CREATININE SERUM 0.67 MG/DL (0.60-1.30); GFR ESTIMATED 113; GLUCOSE 97 MG/DL (70-105); POTASSIUM 3.9 MMOL/L (3.6-5.0); SODIUM 133 MMOL/L (135-145); TOTAL PROTEIN 7.4 GM/DL (6.4-8.2)
[2022-05-15] MEDS ORDERED: PRD20T PO (23:42)
[2022-05-15] MEDS ORDERED: RT-ALBUINH INH (23:42)
[2022-05-15 23:43] VITALS: BP 132/74
--- NOTE | 2022-05-16 07:35 | Diagnostic Imaging Report ---
EXAMINATION: Chest 1 view HISTORY: Cough. Shortness of breath. COMPARISON: None available. FINDINGS: The lung volumes are normal. No focal consolidation is seen. No large pleural effusion or pneumothorax is seen. The cardiomediastinal silhouette is normal in size and contour. No acute osseous abnormality is seen. IMPRESSION: 1. No acute pleuroparenchymal process. Dictated by: Dictated on workstation # [id number]
== END 2022-05-15 23:45 | disposition home or self-care (01) ==
LOC: EDUNIT# 22:15 → ER FS 22:23
DX: J06.9 Acute upper respiratory infection, unspecified (principal); R42 Dizziness and giddiness; F17.210 Nicotine dependence, cigarettes, uncomplicated; Z20.822 Contact with and (suspected) exposure to COVID-19
CPT/HCPCS: 36415; 71045; 80053; 81000; 85025; 86141; 87636; 93041; 94640